=== PATIENT | female | born 1990 | race Caucasian/White ===

== ENCOUNTER 2023-02-09 18:52 | Outpatient (OUT) | payer OTHER, SELFPAY ==
[2023-02-15 13:19] LABS: Age Gdln ACOG Testing Note (.); HPV Aptima Negative (Negative); IGP, Aptima HPV, rfx 16/18,45 Note (.)
== END 2023-02-09 18:53 | disposition home or self-care (01) ==
PROVIDERS: PCP Obstetrics & Gynecology; Visit Provider Obstetrics & Gynecology
DX: Z12.4 Encounter for screening for malignant neoplasm of cervix (principal); Z11.51 Encounter for screening for human papillomavirus (HPV)
CPT/HCPCS: 87624; G0145

== ENCOUNTER 2023-07-19 19:44 | Outpatient (REF) | payer OTHER, SELFPAY ==
[2023-07-22 13:09] LABS: Age Gdln ACOG Testing Note (.); HPV Aptima Negative (Negative); IGP, Aptima HPV, rfx 16/18,45 Note (.)
== END 2023-07-19 19:45 | disposition home or self-care (01) ==
LOC: LAB 19:44
PROVIDERS: PCP Obstetrics & Gynecology; Visit Provider Obstetrics & Gynecology
DX: Z01.419 Encounter for gynecological examination (general) (routine) without abnormal findings (principal)
CPT/HCPCS: 87624; G0145

== ENCOUNTER 2024-01-02 14:24 | Outpatient (OUT) | payer OTHER, SELFPAY ==
--- OUTSIDE RECORDS SUMMARY | 2024-01-02 14:42 | XMS_ITS | CCD ---
Author Organization [facility] CliniSyme Care Team Providers Care Software Reliability Engineer Name Role Phone OTONIEL, DR LAWRENCE Admitting Unavailable OTONIEL, DR LAWRENCE Attending Unavailable GIOVANA, DR AVI Velarde Primary Care Unavail able WEST, DR RIGO Medina Consulting Unavailable OTONIEL, DR LAWRENCE Consulting Unavailable OTONIEL, DR LAWRENCE Admitting Unavailable OTONIEL, DR LAWRENCE Attending Unavailable GIOVANA, DR AVI Velarde Primary Care Unavail able OTONIEL, DR LAWRENCE Admitting Unavailable OTONIEL, DR LAWRENCE Attending Unavailable GIOVANA, DR AVI Velarde Primary Care Unavail able OTONIEL, DR LAWRENCE Consulting Unavailable OTONIEL, DR LAWRENCE Admitting Unavailable OTONIEL, DR LAWRENCE Attending Unavailable GIOVANA, DR AVI Velarde Primary Care Unavail able OTONIEL, DR LAWRENCE Consulting Unavailable OTONIEL, DR LAWRENCE Procedure Practitioner Unavailab SRIKANTH James Consulting Unavailable KEVANGOJOSE RAMON Galloway Consulting Unavailable MISSY PIERRE Consulting Unavailable OTONIEL, DR LAWRENCE Admitting Unavailable OTONIEL, DR LAWRENCE Attending Unavailable GIOVANA, DR AVI Velarde Primary Care Unavail able OTONIEL, DR LAWRENCE Consulting Unavailable OTONIEL, DR LAWRENCE Admitting Unavailable OTONIEL, DR LAWRENCE Attending Unavailable GIOVANA, DR AVI Velarde Primary Care Unavail able OTONIEL, DR LAWRENCE Admitting Unavailable OTONIEL, DR LAWRENCE Attending Unavailable GIOVANA, DR AVI Velarde Primary Care Unavail able OTONIEL, DR LAWRENCE Consulting Unavailable OTONIEL, DR LAWRENCE Admitting Unavailable OTONIEL, DR LAWRENCE Attending Unavailable GIOVANA, DR AVI Velarde Primary Care Unavail able OTONIEL, DR LAWRENCE Consulting Unavailable ZIEBER, DR TIFF Echevarria Consulting Unavailable OTONIEL, DR LAWRENCE Admitting Unavailable OTONIEL, DR LAWRENCE Attending Unavailable GIOVANA, DR AVI Velarde Primary Care Unavail able OTONIEL, DR LAWRENCE Consulting Unavailable ZIEBER, DR TIFF Echevarria Consulting Unavailable OTONIEL, DR LAWRENCE Admitting Unavailable OTONIEL, DR LAWRENCE Attending Unavailable GIOVANA, DR AVI Velarde Primary Care Unavail able OTONIEL, DR LAWRENCE Consulting Unavailable ZIEBER, DR TIFF Echevarria Consulting Unavailable OTONIEL, DR LAWRENCE Admitting Unavailable OTONIEL, DR LAWRENCE Attending Unavailable GIOVANA, DR AVI Velarde Primary Care Unavail able OTONILE, DR LAWRENCE Admitting Unavailable OTONIEL, DR LAWRENCE Attending Unavailable GIOVANA, DR AVI Velarde Primary Care Unavail able OTONIEL, DR LAWRENCE Consulting Unavailable OTONIEL, DR LAWRENCE Admitting Unavailable OTONIEL, DR LAWRENCE Attending Unavailable GIOVANA, DR AVI Velarde Primary Care Unavail able OTONIEL, DR LAWRENCE Consulting Unavailable GIOVANA, DR AVI Velarde Primary Care Unavail able SHAWN, SRIKANTH Admitting Unavailable SHAWN, NICOLÁS Attending Unavailable WEST, DR RIGO Medina Consulting Unavailable OTONIEL, DR LAWRENCE Consulting Unavailable SHAWN, SRIKANTH Consulting Unavailable OTONIEL, DR LAWRENCE Admitting Unavailable OTONIEL, DR LAWRENCE Attending Unavailable GIOVANA, DR AVI Velarde Primary Care Unavail able WEST, DR RIGO Medina Consulting Unavailable OTONIEL, DR LAWRENCE Consulting Unavailable OTONIEL, DR LAWRENCE Admitting Unavailable OTONIEL, DR LAWRENCE Attending Unavailable GIOVANA, DR AVI Velarde Primary Care Unavail able OTONIEL, DR LAWRENCE Consulting Unavailable OTONIEL, DR LAWRENCE Admitting Unavailable OTONIEL, DR LAWRENCE Attending Unavailable GIOVANA, DR AVI Velarde Primary Care Unavail able OTONIEL, DR LAWRENCE Consulting Unavailable OTONIEL, DR LAWRENCE Admitting Unavailable OTONIEL, DR LAWRENCE Attending Unavailable GIOVANA, DR AVI Velarde Primary Care Unavail able OTONIEL, DR LAWRENCE Admitting Unavailable OTONIEL, DR LAWRENCE Attending Unavailable GIOVANA, DR AVI Velarde Primary Care Unavail able OTONIEL, DR LAWRENCE Admitting Unavailable OTONIEL, DR LAWRENCE Attending Unavailable GIOVANA, DR AVI Velarde Primary Care Unavail able OTONIEL, DR LAWRENCE Consulting Unavailable GIOVANA, DR AVI Velarde Primary Care Unavail able TELLY, DR PENNINGTON Admitting Unavailable TELLY, DR PENNINGTON Attending Unavailable TELLY, DR PENNINGTON Consulting Unavailable [place], DR RIGO Medina Consulting Unavailable OTONIEL, DR LAWRENCE Consulting Unavailable OTONIEL, MELINDA Attending Unavailable OTONIEL, MELINDA Attending Unavailable Allergies Allergy Classification Reported Allergen(s) Allergy Type Date of Onset Reaction(s) Facility (2 sources) Acetaminophen / HYDROcodone Drug Allergy [facility] Repository Problems Active Problems Problem Classification Problem Date Documented Da te Episodic/Chronic Genitourinary congenital anomalies (1 source) Congenital malformation of uterus and cervix, unspecified; Translations: [CONGEN MALFORMATION UTERUS CERV UNS] Onset: 06-14-2022 Chronic Malposition; malpresentation (4 sources) Maternal care for breech presentation, not applicable or unspecified; Translations: [MATERNAL CARE BREECH PRES NA/UNS] Onset: 05-18-2022 Episodic Menstrual disorders (4 sources) Irregular menstruation, unspecified; Translations: [IRREGULAR MENSTRUATION UNSPECIFIED] Onset: 11-21-2021 Chronic Other complications of ; puerperium affecting management of mother (1 source) Onset (spontaneous) of labor after 37 completed weeks of gestation but before 39 completed weeks gestation, with delivery by (planned) section; Translations: [ONSET SPNT LBR 37WK<39WK DEL C SEC] Onset: 06-14-2022 Episodic Other complications of ; puerperium affecting management of mother (1 source) Maternal care for other (suspected) abnormality and damage, not applicable or unspecified; Translations: [MAT CARE OTH ABN DAMGE NA/UNS] Onset: 05-03-2022 Episodic Other complications of (5 sources) Maternal care for excessive growth, third trimester, not applicable or unspecified; Translations: [MAT CARE EXCSS FTL GRTH 3RD TRI UNS] Onset: 05-28-2022 Episodic Other complications of (1 source) Maternal care for unspecified congenital malformation of uterus, third trimester; Translations: [MAT CARE UNS CONGN MALF UT 3RD TRI] Onset: 06-14-2022 Episodic Other complications of (1 source) Cervical shortening, third trimester; Translations: [CERVICAL SHORTENING 3RD TRIMESTER] Onset: 05-12-2022 Episodic Other complications of (4 sources) Cervical shortening, unspecified trimester; Translations: [CERVICAL SHORTENING UNS TRIMESTER] Onset: 04-29-2022 Episodic Other and delivery including normal (20 sources) Encounter for care and examination of lactating mother; Translations: [Encounter for routine follow-up] Onset: 10-12-2021 Episodic Other screening for suspected conditions (not mental disorders or infectious disease) (1 source) Abnormal findings on diagnostic imaging of other specified body structures; Translations: [ABNORML FIND DX IMG OTH BODY STRUC] Onset: 05-12-2022 Chronic Other screening for suspected conditions (not mental disorders or infectious disease) (13 sources) Encounter for screening for diabetes mellitus; Translations: [Encounter for screening for malignant neoplasm of cervix] Onset: 11-25-2021 Episodic Residual codes; unclassified (1 source) 37 weeks gestation of ; Translations: [37 WEEKS GESTATION OF ] Onset: 06-14-2022 Episodic Residual codes; unclassified (1 source) 36 weeks gestation of ; Translations: [36 WEEKS GESTATION OF ] Onset: 05-31-2022 Episodic Residual codes; unclassified (1 source) 35 weeks gestation of ; Translations: [35 WEEKS GESTATION OF ] Onset: 05-23-2022 Episodic Residual codes; unclassified (1 source) 34 weeks gestation of ; Translations: [34 WEEKS GESTATION OF ] Onset: 05-18-2022 Episodic Residual codes; unclassified (1 source) Weeks of gestation of not specified; Translations: [WEEKS GESTATION NOT SPEC] Onset: 05-03-2022 Episodic Residual codes; unclassified (1 source) 38 weeks gestation of ; Translations: [38 WEEKS GESTATION OF ] Onset: 04-30-2022 Episodic Unclassified (1 source) CONTACT W/AND (SUSP) EXPOS COVID-19; Translations: [CONTACT W/AND (SUSP) EXPOS COVID-19] Onset: 06-14-2022 Past or Other Problems Problem Classification Problem Date Documented Date Episodic/Chronic Hemorrhage during ; abruptio placenta; placenta previa (4 sources) Hemorrhage in early , unspecified; Translations: [HEMORRHAGE EARLY UNS] Onset: 11-02-2021 Episodic Immunizations and screening for infectious disease (3 sources) Encounter for screening for human papillomavirus (HPV); Translations: [Encounter for screening for infections with a predominantly sexual mode of transmission] Onset: 11-25-2021 Episodic Other female genital disorders (1 source) Other specified noninflammatory disorders of vagina; Translations: [OTH SPEC NONINFLAMMATORY D/O VAGINA] Onset: 02-03-2022 Episodic Residual codes; unclassified (1 source) 20 weeks gestation of ; Translations: [20 WEEKS GESTATION OF ] Onset: 02-03-2022 Episodic Residual codes; unclassified (1 source) 15 weeks gestation of ; Translations: [15 WEEKS GESTATION OF ] Onset: 01-21-2022 Episodic Residual codes; unclassified (4 sources) Personal history of other complications of , childbirth and the puerperium; Translations: [PERS HX OTH COMP PG CHILDBIRTH AND PP] Onset: 07-22-2021 Episodic Results Test Name Value Interpretation Reference Range Facility CBC AUTO DIFFon 06-05-2022 BASO # 0.0 103/ul Normal 0.0-0.1 [facility] Comment on above: Performed By: #### C BC #### [facility] [address] [place] [address] Dr. Sandi Michelle Basophils/100 WBC (Bld) 0.2 % Normal 0.2-2.0 [facility] Comment on above: Performed By: #### C BC #### [facility] [address] [place] [address] Dr. Sandi Michelle EO # 0.0 103/ul Normal 0.0-0.7 [facility] Comment on above: Performed By: #### C BC #### [facility] [address] [place] [address] Dr. Sandi Michelle Eosinophils/100 WBC (Bld) 0.2 % Critically low 0.9-7.0 [facility] Comment on above: Performed By: #### C BC #### [facility] [address] [place] [address] Dr. Sandi Michelle Erythrocyte distribution width (RBC) [Ratio] 14.3 % Normal 11.0-15.0 [facility] Comment on above: Performed By: #### C BC #### [facility] [address] [place] [address] Dr. Sandi Michelle Hematocrit (Bld) [Volume fraction] 27.3 % Critically low 36.0-48.0 [facility] Comment on above: Performed By: #### C BC #### [facility] [address] [place] [address] Dr. Sandi Michelle Hemoglobin (Bld) [Mass/Vol] 9.3 g/dL Critically low 12.0-16.0 [facility] Comment on above: Result Comment: DELI VERY Performed By: #### C BC #### [facility] [address] [place] [address] Dr. Sandi Michelle IG # 0.14 10e3/ul Critically high 0.00-0.03 [facility] Comment on above: Performed By: #### C BC #### [facility] [address] [place] [address] Dr. Sandi Michelle IG % 1.1 % Critically high 0.0-0.5 [facility] Comment on above: Performed By: #### C BC #### [facility] [address] [place] [address] Dr. Sandi Michelle LYMPH # 1.6 103/ul Normal 1.2-3.8 [facility] Comment on above: Performed By: #### C BC #### [facility] [address] [place] [address] Dr. Sandi Michelle Lymphocytes/100 WBC (Bld) 12.1 % Critically low 20.5-60.0 [facility] Comment on above: Performed By: #### C BC #### [facility] [address] [place] [address] Dr. Sandi Michelle MANUAL DIFF REQ NO Normal [facility] Comment on above: Performed By: #### C BC #### [facility] [address] [place] [address] Dr. Sandi Michelle MCH (RBC) [Entitic mass] 31.8 pg Normal 26.7-34.0 [facility] Comment on above: Performed By: #### C BC #### [facility] [address] [place] [address] Dr. Sandi Michelle MCHC (RBC) [Mass/Vol] 34.1 g/dL Normal 29.9-35.2 [facility] Comment on above: Performed By: #### C BC #### [facility] [address] [place] [address] Dr. Sandi Michelle MCV (RBC) [Entitic vol] 93.5 fL Normal 81.0-99.0 [facility] Comment on above: Performed By: #### C BC #### [facility] [address] [address] [address] Sandi Michelle MONO # 0.9 103/ul Critically high 0.3-0.8 [facility] Comment on above: Performed By: #### C BC #### [facility] [address] [place] [address] Dr. Sandi Michelle Monocytes/100 WBC (Bld) 6.8 % Normal 1.7-12.0 [facility] Comment on above: Performed By: #### C BC #### [facility] [address] [place] [address] Dr. Sandi Michelle NEUT # 10.3 103/ul Critically high 1.4-6.5 [facility] Comment on above: Performed By: #### C BC #### [facility] [address] [place] [address] Dr. Sandi Michelle Neutrophils/100 WBC (Bld) 79.6 % Critically high 43.0-75.0 [facility] Comment on above: Performed By: #### C BC #### [facility] [address] [place] [address] Dr. Sandi Michelle Platelet mean volume (Bld) [Entitic vol] 9.8 fL Normal 9.5-13.5 [facility] Comment on above: Performed By: #### C BC #### [facility] [address] [place] [address] Dr. Sandi Michelle PLT 138 103/ul Critically low 150-450 [facility] Comment on above: Performed By: #### C BC #### [facility] [address] [place] [address] Dr. Sandi Michelle RBC 2.92 106/ul Critically low 4.20-5.40 [facility] Comment on above: Performed By: #### C BC #### [facility] [address] [place] [address] Dr. Sandi Michelle WBC 12.9 103/ul Critically high 4.0-11.0 [facility] Comment on above: Performed By: #### C BC #### [facility] [address] [place] [address] Dr. Sandi Michelle CBC AUTO DIFFon 06-04-2022 BASO # 0.0 103/ul Normal 0.0-0.1 [facility] Comment on above: Performed By: #### C BC #### [facility] [address] [place] [address] Dr. Sandi Michelle Basophils/100 WBC (Bld) 0.3 % Normal 0.2-2.0 [facility] Comment on above: Performed By: #### C BC #### [facility] [address] [place] [address] Dr. Sandi Michelle EO # 0.0 103/ul Normal 0.0-0.7 [facility] Comment on above: Performed By: #### C BC #### [facility] [address] [place] [address] Dr. Sandi Michelle Eosinophils/100 WBC (Bld) 0.1 % Critically low 0.9-7.0 [facility] Comment on above: Performed By: #### C BC #### [facility] [address] [place] [address] Dr. Sandi Michelle Erythrocyte distribution width (RBC) [Ratio] 14.4 % Normal 11.0-15.0 [facility] Comment on above: Performed By: #### C BC #### [facility] [address] [place] [address] Dr. Sandi Michelle Hematocrit (Bld) [Volume fraction] 37.2 % Normal 36.0-48.0 [facility] Comment on above: Performed By: #### C BC #### [facility] [address] [place] [address] Dr. Sandi Michelle Hemoglobin (Bld) [Mass/Vol] 12.9 g/dL Normal 12.0-16.0 [facility] Comment on above: Performed By: #### C BC #### [facility] [address] [place] [address] Dr. Sandi Michelle IG # 0.23 10e3/ul Critically high 0.00-0.03 [facility] Comment on above: Performed By: #### C BC #### [facility] [address] [place] [address] Dr. Sandi Michelle IG % 1.6 % Critically high 0.0-0.5 [facility] Comment on above: Performed By: #### C BC #### [facility] [address] [place] [address] Dr. Sandi Michelle LYMPH # 2.3 103/ul Normal 1.2-3.8 [facility] Comment on above: Performed By: #### C BC #### [facility] [address] [place] [address] Dr. Sandi Michelle Lymphocytes/100 WBC (Bld) 16.0 % Critically low 20.5-60.0 [facility] Comment on above: Performed By: #### C BC #### [facility] [address] [place] [address] Dr. Sandi Michelle MANUAL DIFF REQ NO Normal [facility] Comment on above: Performed By: #### C BC #### [facility] [address] [place] [address] Dr. Sandi Michelle MCH (RBC) [Entitic mass] 32.3 pg Normal 26.7-34.0 [facility] Comment on above: Performed By: #### C BC #### [facility] [address] [place] [address] Dr. Sandi Michelle MCHC (RBC) [Mass/Vol] 34.7 g/dL Normal 29.9-35.2 [facility] Comment on above: Performed By: #### C BC #### [facility] [address] [place] [address] Dr. Sandi Michelle MCV (RBC) [Entitic vol] 93.0 fL Normal 81.0-99.0 [facility] Comment on above: Performed By: #### C BC #### [facility] [address] [place] [address] Dr. Sandi Michelle MONO # 0.8 103/ul Normal 0.3-0.8 [facility] Comment on above: Performed By: #### C BC #### [facility] [address] [place] [address] Dr. Sandi Michelle Monocytes/100 WBC (Bld) 5.8 % Normal 1.7-12.0 [facility] Comment on above: Performed By: #### C BC #### [facility] [address] [place] [address] Dr. Sandi Michelle NEUT # 10.7 103/ul Critically high 1.4-6.5 [facility] Comment on above: Performed By: #### C BC #### [facility] [address] [place] [address] Dr. Sandi Michelle Neutrophils/100 WBC (Bld) 76.2 % Critically high 43.0-75.0 [facility] Comment on above: Performed By: #### C BC #### [facility] [address] [place] [address] Dr. Sandi Michelle Platelet mean volume (Bld) [Entitic vol] 10.9 fL Normal 9.5-13.5 [facility] Comment on above: Performed By: #### C BC #### [facility] [address] [place] [address] Dr. Sandi Michelle PLT 194 103/ul Normal 150-450 [facility] Comment on above: Performed By: #### C BC #### [facility] [address] [place], [place] [id number] Dr. Sandi Michelle RBC 4.00 106/ul Critically low 4.20-5.40 [facility] Comment on above: Performed By: #### C BC #### [facility] [address] [place] [address] Dr. Sandi Michelle WBC 14.0 103/ul Critically high 4.0-11.0 [facility] Comment on above: Performed By: #### C BC #### [facility] [address] [place], [place] [address] Dr. Sandi Michelle Covid-19 PCR ([facility])on 05-25 SARS-CoV-2 (COVID-19) RNA ALETHEA+probe Ql (Unsp spec) Not detected Normal NOT DETECTED [facility] Comment on above: Result Comment: When diagnostic testing is negative, the possibility of a false negative should be considered in the context of a patient's recent exposures and the presence of clinical signs and symptoms consistent with SARS-CoV-2. This test is not yet approved or cleared by the [place] FDA. When there are no FDA-approved or cleared tests available, and other criteria are met, FDA can make tests available under an emergency access mechanism called an Emergency Use Authorization (EUA). The EUA for this test is supported by the [place] of Health and Human Service's declaration that circumstances exist to justify the emergency use of in vitro diagnostics for the detection and/or diagnosis of the virus that causes COVID-19. This EUA will remain in effect for the duration of the COVID-19 declaration justifying emergency of IVDs, unless it is terminated or revoked by the FDA (after which the test may no longer be used). Performed By: #### C VDTBH ####[facility] [address] [place], [place] [address]WoDen Michelle DRUG SCREEN RAPID (URINE)on 06-04-2022 AMP Negative Normal NEGATIVE [facility] Comment on above: Performed By: #### D RUGRPD ####[facility] [address] [id number] Michelle BAR Negative Normal NEGATIVE [facility] Comment on above: Performed By: #### D RUGRPD ####[facility] [address] [id number] Michelle BUP Negative Normal NEGATIVE [facility] Comment on above: Performed By: #### D RUGRPD ####[facility] [address] [id number]. Sandi Michelle BZO Negative Normal NEGATIVE [facility] Comment on above: Performed By: #### D RUGRPD ####[facility] [address] [address]Dr. Sandi Michelle NINO Negative Normal NEGATIVE [facility] Comment on above: Performed By: #### D RUGRPD ####[facility] [address] [place], [place] [id number]. Sandi Michelle CUT-OFFS SEE BELOW Normal [facility] Comment on above: Result Comment: AMP (Amphetamine): 500ng/mL, BAR (Barbituates): 200 ng/mL, BZO (Benzodiazepines): 150 ng/mL, BUP (Buprenorphine): 10 ng/mL, NINO (Cocaine): 150 ng/mL, mAMP (Methamphetamine): 500 ng/mL, MTD (Methadone): 200 ng/mL, OPI (Opiates): 100 ng/mL, OXY (Oxycodone): 100 ng/mL, PCP (Phencyclidine): 25 ng/mL, PPX (Propoxyphene): 300 ng/mL, THC (Cannabinoids): 50 ng/mL, TCA (Trycyclic Antidepressants): 300 ng/mL Performed By: #### D RUGRPD ####[facility] [address] [place], [place] [address]Dr. Sandi Michelle DRUG CUT HEADER DRUG CLASS TEST SYSTEM CUT-OFF CONCENTRATIONS ARE FOLLOWS: Normal [facility] Comment on above: Performed By: #### D RUGRPD ####[facility] [address] [place], [place] [address]Dr. Sandi Michelle mAMP Negative Normal NEGATIVE [facility] Comment on above: Performed By: #### D RUGRPD ####[facility] [address] [place], [place] [address]Dr. Sandi Michelle MTD Negative Normal NEGATIVE [facility] Comment on above: Performed By: #### D RUGRPD ####[facility] [address] [place], [place] [address]Dr. Sandi Michelle OPI Negative Normal NEGATIVE [facility] Comment on above: Performed By: #### D RUGRPD ####[facility] [address] [place], [place] [address]Dr. Sandi Michelle OXY Negative Normal NEGATIVE [facility] Comment on above: Performed By: #### D RUGRPD ####[facility] [address] [address]Dr. Sandi Michelle PCP Negative Normal NEGATIVE [facility] Comment on above: Performed By: #### D RUGRPD ####[facility] [address] [address]Dr. Sandi Michelle PPX Negative Normal NEGATIVE [facility] Comment on above: Performed By: #### D RUGRPD ####[facility] [address] [address]Dr. Sandi Michelle TCA Negative Normal NEGATIVE [facility] Comment on above: Performed By: #### D RUGRPD ####[facility] [address] [address]Dr. Sandi Michelle THC Negative Normal NEGATIVE [facility] Comment on above: Performed By: #### D RUGRPD ####[facility] [address] [address]Dr. Sandi Michelle TYPE AND SCREENon 06-04-2022 TYPE AND SCREEN Negative Normal [facility] Comment on above: Performed By: #### T NS ####[facility] [address] [place], [place] [address]Dr. Sandi Michelle US PREG BIOPHY W NON STRESSo n 05-30-2022 US PREG BIOPHY W NON STRESS EXAMINATION: US PREG BIOPHY W NON STRESS HISTORY: Excessive growth affecting management of mother COMPARISON: No relevant comparison available. TECHNIQUE: Ultrasound biophysical profile was performed in the radiology department. FINDINGS: BREATHING MOVEMENTS: 2.0 GROSS BODY MOVEMENTS: 2.0 TONE: 2.0 QUALITATIVE AMNIOTIC FLUID VOLUME: 2.0 PRESENTATION: BREECH HEART RATE: 125.4 bpm H.B./min AMNIOTIC FLUID VOLUME: 16.1 cm cm GESTATIONAL AGE: 36 weeks 5 days CONCLUSION: Total biophysical profile score: 8.0 Electronically authenticated by: RIGO FISCHER Date: 2022-05-30 08:30 Normal [facility] GROUP B STREP CULTUREon S. agalactiae Ag (Unsp spec) Culture Observations: NEGATIVE FOR GROUP B STREPTOCOCCUS. Normal [facility] Comment on above: Performed By: #### G BSCX ####[facility] [address] [place], [place] [address]GwDen Michelle US PREG BIOPHY W NON STRESSo n 05-23-2022 US PREG BIOPHY W NON STRESS EXAMINATION: US PREG BIOPHY W NON STRESS HISTORY: Excessive growth affecting management of mother COMPARISON: No relevant comparison available. TECHNIQUE: Ultrasound biophysical profile was performed in the radiology department. FINDINGS: BREATHING MOVEMENTS: 2.0 GROSS BODY MOVEMENTS: 2.0 TONE: 2.0 QUALITATIVE AMNIOTIC FLUID VOLUME: 2.0 PRESENTATION: BREECH HEART RATE: 131.1 bpm H.B./min AMNIOTIC FLUID VOLUME: 15.0 cm cm GESTATIONAL AGE: 35 weeks 5 days CONCLUSION: Total biophysical profile score: 8.0 Electronically authenticated by: RIGO FISCHER Date: 2022-05-23 09:41 Normal [facility] US PREG BIOPHY W NON STRESSo n 05-16-2022 US PREG BIOPHY W NON STRESS EXAMINATION: US PREG BIOPHY W NON STRESS HISTORY: Excessive growth affecting management of mother COMPARISON: No relevant comparison available. TECHNIQUE: Ultrasound biophysical profile was performed in the radiology department. non-reactive stress testing was performed by nursing staff in the birthing center. FINDINGS: BREATHING MOVEMENTS: 2.0 GROSS BODY MOVEMENTS: 2.0 TONE: 2.0 QUALITATIVE AMNIOTIC FLUID VOLUME: 2.0 PRESENTATION: BREECH HEART RATE: 138.5 bpm H.B./min AMNIOTIC FLUID VOLUME: 15.1 cm cm GESTATIONAL AGE: 34 weeks 5 days CONCLUSION: Total biophysical profile score: 8.0 Electronically authenticated by: RIGO FISCHER Date: 2022-05-16 16:10 Normal [facility] US PREG GROWTHon 05-11-2022 US PREG GROWTH EXAMINATION: US PREG GROWTH, US PREG CERVICAL LENGTH HISTORY: Excessive growth affecting management of mother COMPARISON: Ultrasound growth 04/27/2022 FINDINGS: Heart Rate: 137.8 bpm (accession [id number]), 167.3 bpm (accession [id number]) Number: 1.0 Position: BREECH Amniotic Fluid Volume: 13.0 cm (between fifth and 95th percentile) Maximum Vertical Pocket: 6.5 cm Cervix: 2.1 cm and closed (2.0 cm during Valsalva) BIOMETRY: BPD: 9.0 cm cm; 36 weeks 3 days; 95% HC: 32.8 cmcm; 37 weeks 1 days; 87% AC: 34.3 cm cm; 38 weeks 2 days; >97% FL: 6.5 cm cm; 33 weeks 3 days; 23% EFW: 3032.7 grams; >97% FL/AC: 18.9 FL/BPD: 72.2 HC/AC: 1.0 GESTATIONAL AGE: Age by EDC: 34 weeks 1 days JOSE by EDC: Age by US: JOSE by US: [id number] IMPRESSION: 1. Single live intrauterine . 2. Estimated weight is greater than 97th percentile. 3. Synechia band within lower uterine segment. 4. Short, closed cervix 2.1 cm in length. No significant change with Valsalva. Electronically authenticated by: TIFF URIBE Date: 2022-05-11 19:19 Normal [facility] US PREG GROWTHon 04-27-2022 US PREG GROWTH EXAMINATION: US PREG GROWTH HISTORY: Large for gestation age fetus COMPARISON: Ultrasound anatomy 02/01/2022 FINDINGS: Heart Rate: 163.0 bpm Number: 1.0 Position: Oblique/BREECH Amniotic Fluid Volume: 19.4 cm Maximum Vertical Pocket: 6.9 cm Cervix: 2.0 cm; closed. BIOMETRY: BPD: 8.6 cm cm; 34 weeks 5 days HC: 31.0 cmcm; 34 weeks 4 days AC: 30.3 cm cm; 34 weeks 1 days FL: 6.7 cm cm; 34 weeks 4 days EFW: 2417.0 grams; 94% FL/AC: 22.2 FL/BPD: 77.9 HC/AC: 1.0 GESTATIONAL AGE: Age by EDC: 32 weeks 2 days JOSE by EDC: 06/20/2022 Age by US: 34 weeks, 4 days JOSE by US: 06/04/2022 IMPRESSION: 1. Single live intrauterine with growth detailed above. 2. Short, closed cervix, 2.0 cm in length. Electronically authenticated by: TIFF URIBE Date: 2022-04-27 20:51 Normal [facility] GLUCOSE - 1HRon 03-15-2022 Glucose [Mass/Vol] 137 mg/dL Critically high 74-106 T [facility] Comment on above: Performed By: #### C BC #### [facility] [address] [place] [address] Dr. Sandi Michelle HEMOGRAM AND PLATELon 2021 Hematocrit (Bld) [Volume fraction] 34.9 % Critically low 36.0-48.0 [facility] Comment on above: Performed By: #### C BC #### [facility] [address] [place] [address] Dr. Sandi Michelle Hemoglobin (Bld) [Mass/Vol] 11.5 g/dL Critically low 12.0-16.0 [facility] Comment on above: Performed By: #### C BC #### [facility] [address] [place] [address] Dr. Sandi Michelle MCH (RBC) [Entitic mass] 31.8 pg Normal 26.7-34.0 [facility] Comment on above: Performed By: #### C BC #### [facility] [address] [place] [address] Dr. Sandi Michelle MCHC (RBC) [Mass/Vol] 33.0 g/dL Normal 29.9-35.2 [facility] Comment on above: Performed By: #### C BC #### [facility] [address] [place] [address] Dr. Sandi Michelle MCV (RBC) [Entitic vol] 96.4 fL Normal 81.0-99.0 [facility] Comment on above: Performed By: #### C BC #### [facility] [address] [place] [address] Dr. Sandi Michelle PLT 225 103/ul Normal 150-450 [facility] Comment on above: Performed By: #### C BC #### [facility] [address] [place] [address] Dr. Sandi Michelle RBC 3.62 106/ul Critically low 4.20-5.40 The [facility] Comment on above: Performed By: #### C BC #### [facility] [address] [address] [address] Sandi Michelle WBC 12.9 103/ul Critically high 4.0-11.0 [facility] Comment on above: Performed By: #### C BC #### [facility] [id number] Sandi Michelle CHLAMYDIA/GONOCOCCUS ALETHEA (SW AB/URINE/PAPon 02-04-2022 Chlamydia trachomatis, ALETHEA Negative Normal Negative [facility] Comment on above: Performed By: #### C T/NGNA #### [facility] [id number] Sandi Michelle Neisseria gonorrhoeae, ALETHEA Negative Normal Negative [facility] Comment on above: Performed By: #### C T/NGNA #### [facility] [address] [address] [address] Sandi Michelle PAP ACOG PANEL 2: 30 to 65on 02-04-2022 . . Normal [facility] Comment on above: Result Comment: Perf ormed at: WB Performed By: #### 4 [id number] ####[facility] [address] [place] [address]Dr. Sandi Michelle Age Gdln ACOG Testing 30-65 Normal [facility] Comment on above: Performed By: #### 4 [id number] ####[facility] [address] [place] [address]Dr. Sandi Michelle DIAGNOSIS: Comment Normal [facility] Comment on above: Result Comment: NEGA TIVE FOR INTRAEPITHELIAL LESION OR MALIGNANCY. Performed at: WB Performed By: #### 4 [id number] ####[facility] [address] [place] [address]Dr. Sandi Michelle HPV Aptima Negative Normal Negative [facility] Comment on above: Result Comment: This nucleic acid amplification test detects fourteen high-risk HPV types (16,18,31,33,35,39,45,51,52,56,58,59,66,68) without differentiation. Performed at: =G Performed By: #### 4 [id number] ####[facility] [address] [place] [address]Dr. Sandi Michelle Methodology: Comment Normal [facility] Comment on above: Result Comment: This liquid based ThinPrep(R) pap test was screened with the use of an image guided system. Performed at: WB Performed By: #### 4 [id number] ####[facility] [address] [place], [place] [address]DrDen Michelle Note: Comment Normal [facility] Comment on above: Result Comment: The Pap smear is a screening test designed to aid in the detection of premalignant and malignant conditions of the uterine cervix. It is not a diagnostic procedure and should not be used as the sole means of detecting cervical cancer. Both false-positive and false-negative reports do occur. . Performed at: WB Performed By: #### 4 [id number] ####[facility] [address] [place], [place] [address]Dr. Sandi Michelle Performed by: Comment Normal [facility] Comment on above: Result Comment: Vikas Mcclellan, Bean Snipper (ASCP) Performed at: WB Performed By: #### 4 [id number] ####[facility] [address] [place], [place] [address]Dr. Sandi Michelle Specimen adequacy: Comment Normal [facility] Comment on above: Result Comment: Sati sfactory for evaluation. No endocervical component is identified. Performed at: WB Performed By: #### 4 [id number] ####[facility] [address] [place], [place] [address]Dr. Sandi Michelle VAGINITIS/VAGINOSIS DNA PROB Nicholas 02-03-2022 Karol species Negative Normal Negative [facility] Comment on above: Performed By: #### V AGINT ####[facility] [address] [place] [address]Dr. Sandi Michelle Gardnerella vaginalis Negative Normal Negative [facility] Comment on above: Performed By: #### V AGINT ####[facility] [address] [place] [address]Dr. Sandi Michelle Trichomonas vaginalis Negative Normal Negative [facility] Comment on above: Performed By: #### V AGINT ####[facility] [address] [place], [place] [address]JzDen Michelle US PREG ANATOMY SINGLEon US PREG ANATOMY SINGLE EXAMINATION: US PREG ANATOMY SINGLE HISTORY: anatomy study COMPARISON: 11/02/2021 TECHNIQUE: Transabdominal sonographic examination was performed for obstetrical and evaluation. FINDINGS: Number: 1 Heart Rate: 142.0 bpm H.B. /min Amniotic Fluid Volume: Subjectively normal position: Breech presentation, longitudinal lie Placental Location: Anterior, grade 0. Placental edge is 7.8 cm from the internal os Cervix Length: 3.8 cm, closed Normally visualized anatomy: Cerebellum, choroid plexus, cisterna magna, lateral cerebral ventricles, orbits, midline falx, hard palate, four-chamber heart, RVOT, LVOT, stomach, kidneys, bladder, umbilical cord insertion into the abdomen, three-vessel cord, cervical spine, thoracic spine, lumbar spine, sacral spine, right upper extremity, left upper extremity, right lower extremity, left lower extremity Suboptimally visualized anatomy: None BIOMETRY: BPD: 5.0 cm 21 weeks 1 days , 86% HC: 18.5 cm 20 weeks 6 days, 73% AC: 16.1 cm 21 weeks 2 days, 78% FL: 3.5 cm 20 weeks 6 days, 69% EFW:396.0 grams; 14 ounces, 90% FL/AC: 21.5 FL/BPD: 69.1 HC/AC: 1.2 GESTATIONAL AGE: Age by EDC: 20 weeks 1 days JOSE by EDC: 06/20/2022 Age by current US: 21 weeks 0 days JOSE by current US: 06/14/2022 IMPRESSION: Normal anatomy scan *Reference: [employer] Practice Guideline for the performance of Obstetric Ultrasound Examinations, April 24, 2007. Electronically authenticated by: RIGO FISCHER Date: 2022-02-01 19:32 Normal [facility] AFP MATERNAL FOR SPINA BIFID Aon 01-21-2022 AFP MoM 1.24 Normal [facility] Comment on above: Performed By: #### A FPMAT ####[facility] [address] [place], [place] [address]SnDen Michelle AFP Value 55.2 ng/mL Normal [facility] Comment on above: Performed By: #### A FPMAT ####[facility] [address] [place] [id number]. Sandi Michelle AFP, Serum for Spina Bifida Report Normal [facility] Comment on above: Performed By: #### A FPMAT ####[facility] [address] [place] [id number]. Sandi Michelle Comment Comment Normal [facility] Comment on above: Result Comment: Iesha Sullivan, Ph.D., [facility] Director . References: Available Upon Request. . Multiples Of Median Cutoffs For AFP Elevations Bhandari 2.5 Black 2.8 IDD 2.0 Twins 4.5 Abbreviation Definitions IDD - Insulin Dep Diabetes OSBR - Open Spina Bifida Risk . For further inquiries contact [email or web address] [facility] at [phone]. . This test was developed and its performance characteristics determined by [employer]. It has not been cleared or approved by the Food and Drug Administration. Performed By: #### A FPMAT ####[facility] [address] [place] [address]Dr. Sandi Michelle Gest Age Collection Date 18.1 weeks Normal [facility] Comment on above: Performed By: #### A FPMAT ####[facility] [address] [place] [address]Dr. Sandi Michelle Gestat, Age Based on JOSE Normal [facility] Comment on above: Result Comment: 05/26 Recalculations are not recommended when gestational dating by LMP and ultrasound are within 10 days. Performed By: #### A FPMAT ####[facility] [address] [place] [address]Dr. Sandi Michelle Insulin Dep Diabetes Comment Normal [facility] Comment on above: Result Comment: Not provided. . Performed By: #### A FPMAT ####[facility] [address] [place] [address]Dr. Sandi Michelle Interpretation Comment Normal The [facility] Comment on above: Result Comment: Inte rpretation: Screen Negative . This result is screen negative for OSB. The AFP MoM calculated is based on the gestational age provided. MS-AFP can identify up to 80% of open neural tube defects. Closed neural tube defects and some open defects may not be detected by this test. This test does not screen for Down Syndrome or Trisomy 18. If screening for Down Syndrome or Trisomy 18 is desired, contact [employer] to discuss available options. The [employer] recommends amniocentesis be offered to women age 35 and older. Performed By: #### A FPMAT ####[facility] [address] [place] [id number]. Sandi Michelle [age] Normal [facility] Comment on above: Performed By: #### A FPMAT ####[facility] [address] [place] [address]Dr. Sandi Michelle Multiple Gestation No Normal [facility] Comment on above: Performed By: #### A FPMAT ####[facility] [address] [place], [place] [id number]. Sandi Michelle OSBR Risk 1 [place] 5748 Normal [facility] Comment on above: Performed By: #### A FPMAT ####[facility] [address] [place] [id number]. Sandi Michelle PDF . Normal [facility] Comment on above: Performed By: #### A FPMAT ####[facility] [address] [place] [id number]. Sandi Michelle Race Normal [facility] Comment on above: Performed By: #### A FPMAT ####[facility] [address] [place], [place] [address]Dr. Sandi Michelle Test Results: Negative Normal [facility] Comment on above: Performed By: #### A FPMAT ####[facility] [address] [place], [place] [address]Dr. Sandi Michelle HEP B SURFACE ANTIGEN SCREEN on 11-22-2021 HBsAg Screen Negative Normal Negative [facility] Comment on above: Performed By: #### H BSANS ####[facility] [address] [place], [place] [address]Dr. Sandi Michelle HEPATITIS C VIRUS AB W/ REFL EX QUANTon 11-22-2021 HCV AB 0.1 s/co ratio Normal 0.0-0.9 The [facility] Comment on above: Performed By: #### C BC #### [facility] [address] [address] [address] Sandi Michelle Interpretation: Comment Normal [facility] Comment on above: Result Comment: Nega tive Not infected with HCV, unless recent infection is suspected or other evidence exists to indicate HCV infection. Performed By: #### C BC #### [facility] [address] [address] [address] Sandi Michelle HIV 1 AND 2 WITH REFLEXon HIV Screen 4th Generation wRfx Non-Reactive Normal Non Reactive [facility] Comment on above: Result Comment: HIV Negative HIV-1/HIV-2 antibodies and HIV-1 p24 antigen were NOT detected. There is no laboratory evidence of HIV infection. Performed By: #### H IV12 ####[facility] [address] [address]Dr. Sandi Michelle RPR QUANTon 11-22-2021 Rapid Plasma Reagin, Quant Non-Reactive Normal NonRea<1:1 [facility] Comment on above: Result Comment: Mary kyle Note: This test does not meet current guidelines for screening and diagnosis of syphilis. This test is intended for following treatment response in patients being treated for syphilis infection. To screen for syphilis infection, a reflex cascade that includes both RPR and a treponema-specific assay should be utilized, such as Treponema pallidum (Syphilis) Screening [place] (941492) or Rapid Plasma Reagin (RPR) Test With Reflex to Quantitative RPR and Confirmatory Treponema pallidum Antibodies (137798). Performed By: #### C BC #### [facility] [address] [address] [address] Sandi Michelle RUBELLA AB IGGon 11-22-2021 Rubella Antibodies, IgG 9.33 index Normal Immune >0.99 [facility] Comment on above: Result Comment: Non- immune <0.90 Equivocal 0.90 - 0.99 Immune >0.99 Performed By: #### C BC #### [facility] [address] [place] [address] Dr. Sandi Michelle CBC AUTO DIFFon 11-21-2021 BASO # 0.0 103/ul Normal 0.0-0.1 [facility] Comment on above: Performed By: #### C BC #### [facility] [address] [place] [address] Dr. Sandi Michelle Basophils/100 WBC (Bld) 0.4 % Normal 0.2-2.0 [facility] Comment on above: Performed By: #### C BC #### [facility] [address] [place] [address] Dr. Sandi Michelle EO # 0.1 103/ul Normal 0.0-0.7 [facility] Comment on above: Performed By: #### C BC #### [facility] [address] [place] [address] Dr. Sandi Michelle Eosinophils/100 WBC (Bld) 0.6 % Critically low 0.9-7.0 [facility] Comment on above: Performed By: #### C BC #### [facility] [address] [place] [address] Dr. Sandi Michelle Erythrocyte distribution width (RBC) [Ratio] 11.9 % Normal 11.0-15.0 [facility] Comment on above: Performed By: #### C BC #### [facility] [address] [place] [address] Dr. Sandi Michelle Hematocrit (Bld) [Volume fraction] 37.1 % Normal 36.0-48.0 [facility] Comment on above: Performed By: #### C BC #### [facility] [address] [place] [address] Dr. Sandi Mcihelle Hemoglobin (Bld) [Mass/Vol] 12.2 g/dL Normal 12.0-16.0 [facility] Comment on above: Performed By: #### C BC #### [facility] [address] [place] [address] Dr. Sandi Michelle IG # 0.03 10e3/ul Normal 0.00-0.03 [facility] Comment on above: Performed By: #### C BC #### [facility] [address] [place] [address] Dr. Sandi Michelle IG % 0.4 % Normal 0.0-0.5 [facility] Comment on above: Performed By: #### C BC #### [facility] [address] [place] [address] Dr. Sandi Michelle LYMPH # 1.8 103/ul Normal 1.2-3.8 [facility] Comment on above: Performed By: #### C BC #### [facility] [address] [place] [address] Dr. Sandi Michelle Lymphocytes/100 WBC (Bld) 23.4 % Normal 20.5-60.0 [facility] Comment on above: Performed By: #### C BC #### [facility] [address] [place] [address] Dr. Sandi Michelle MANUAL DIFF REQ NO Normal [facility] Comment on above: Performed By: #### C BC #### [facility] [address] [place] [address] Dr. Sandi Michelle MCH (RBC) [Entitic mass] 31.4 pg Normal 26.7-34.0 [facility] Comment on above: Performed By: #### C BC #### [facility] [address] [place] [address] Dr. Sandi Michelle MCHC (RBC) [Mass/Vol] 32.9 g/dL Normal 29.9-35.2 [facility] Comment on above: Performed By: #### C BC #### [facility] [address] [place] [address] Dr. Sandi Michelle MCV (RBC) [Entitic vol] 95.6 fL Normal 81.0-99.0 [facility] Comment on above: Performed By: #### C BC #### [facility] [address] [place] [address] Dr. Sandi Michelle MONO # 0.5 103/ul Normal 0.3-0.8 [facility] Comment on above: Performed By: #### C BC #### [facility] [address] [place] [address] Dr. Sandi Michelle Monocytes/100 WBC (Bld) 6.6 % Normal 1.7-12.0 [facility] Comment on above: Performed By: #### C BC #### [facility] [address] [place] [address] Dr. Sandi Michelle NEUT # 5.4 103/ul Normal 1.4-6.5 [facility] Comment on above: Performed By: #### C BC #### [facility] [address] [place] [address] Dr. Sandi Michelle Neutrophils/100 WBC (Bld) 68.6 % Normal 43.0-75.0 [facility] Comment on above: Performed By: #### C BC #### [facility] [address] [place] [address] Dr. Sandi Michelle Platelet mean volume (Bld) [Entitic vol] 10.1 fL Normal 9.5-13.5 [facility] Comment on above: Performed By: #### C BC #### [facility] [address] [place] [address] Dr. Sandi Michelle PLT 237 103/ul Normal 150-450 [facility] Comment on above: Performed By: #### C BC #### [facility] [address] [place] [address] Dr. Sandi Michelle RBC 3.88 106/ul Critically low 4.20-5.40 [facility] Comment on above: Performed By: #### C BC #### [facility] [address] [place] [address] Dr. Sandi Michelle WBC 7.9 103/ul Normal 4.0-11.0 [facility] Comment on above: Performed By: #### C BC #### [facility] [address] [place], [place] [id number] Dr. Sandi Michelle CULTURE URINEon 11-21-2021 CULTURE URINE Culture Observations : LIGHT GROWTH OF MIXED GENITAL MENDEZ. NO POTENTIAL PATHOGENS SEEN. Normal [facility] Comment on above: Performed By: #### U RCX #### [facility] [address] [place] [address] Dr. Sandi Michelle GLYCOHEMOGLOBIN A1Con 2021 ADA RECOMMENDATION SEE BELOW Normal [facility] Comment on above: Result Comment: ADA RECOMMENDED LIMIT 4.0 - 6.0 ADA THERAPEUTIC TARGET < 7.0 ACTION SUGGESTED > 7.0 Performed By: #### A 1C ####[facility] [address] [address]Dr. Sandi Michelle Glucose [Mass/Vol] 103 mg/dL Normal [facility] Comment on above: Performed By: #### A 1C ####[facility] [address] [address]Dr. Sandi Michelle HbA1c (Bld) [Mass fraction] 5.2 % Normal 4.5-6.2 [facility] Comment on above: Performed By: #### A 1C ####[facility] [address] [address]Dr. Sandi Michelle TYPE AND SCREENon 11-21-2021 TYPE AND SCREEN Negative Normal [facility] Comment on above: Performed By: #### T NS #### [facility] [address] [address] [address] Sandi Michelle US PREG TVon 11-03-2021 US PREG TV EXAMINATION: US PREG TV HISTORY: Hemorrhagic complication of COMPARISON: No relevant comparison available. FINDINGS: GESTATIONAL SAC: Present and normal appearing. POLE: Present and normal appearing. YOLK SAC: Present. CARDIAC: Present. UTERUS: Normal size and appearance. OVARIES: Right: Corpus lutein cyst Left: Normal. CERVIX: 3.1 cm in length and closed. CUL-DE-SAC: Normal. OTHER: Tiny subchorionic hematoma. AGE BY LMP: 7 weeks, 1 day JOSE BY LMP: 06/20/2022 AGE BY US CRL: 7 weeks, 3 days JOSE BY US CRL: 06/18/2022 IMPRESSION: 1. Single live intrauterine . Electronically authenticated by: TIFF URIBE Date: 2021-11-03 07:19 Normal [facility] PREG QUANT HCGon 10-14-2021 HCG QUANT 469 mIU/mL Normal [facility] Comment on above: Performed By: #### P REGQNT #### [facility] [address], [place] [address] Dr. Sandi Michelle HCG RANGE SEE BELOW Normal [facility] Comment on above: Result Comment: 5-50 0-1 WEEK 40-300 1-2 WEEKS 100-1,000 2-3 WEEKS 500-6,000 3-4 WEEKS 5,000-200,000 1-2 MONTHS 10,000-100,000 2-3 MONTHS 3,000-50,000 2ND TRIMESTER 1,000-50,000 3RD TRIMESTER Performed By: #### P REGQNT #### [facility] [address], [place] [address] Dr. Sandi Michelle PREG QUANT HCGon 10-12-2021 HCG QUANT 184 mIU/mL Normal [facility] Comment on above: Performed By: #### C BC #### [facility] [address], [place] [address] Dr. Sandi Michelle HCG RANGE SEE BELOW Normal [facility] Comment on above: Result Comment: 5-50 0-1 WEEK 40-300 1-2 WEEKS 100-1,000 2-3 WEEKS 500-6,000 3-4 WEEKS 5,000-200,000 1-2 MONTHS 10,000-100,000 2-3 MONTHS 3,000-50,000 2ND TRIMESTER 1,000-50,000 3RD TRIMESTER Performed By: #### C BC #### [facility] [address], [place] [address] Dr. Sandi Michelle PROTEIN C FUNC ACTIVITYon Prt C Activity (Chromogenic) 130 % Normal [facility] Comment on above: Result Comment: Refe rence Range: 17 years and older: 73 - 180 Effective August 10, 2021 Prt C Activity, (Chromogenic) will be made non-orderable. This will not affect any profile that includes Prt C Activity (Chromogenic). [facility] offers [id number] Protein C Functional. For more information please contact your local [facility] Social Worker. Performed By: #### P RCACT ####[facility] [address] [place], [place] [address]WlDr. Sandi Michelle FACTOR V LEIDEN MUTATION CIARAN LYSISon 07-27-2021 Factor V Leiden Comment Normal [facility] Comment on above: Result Comment: Resu lt: c.1601G>A (p.Ipa380Kvm) - Not Detected . This result is not associated with an increased risk for venous thromboembolism. See Additional Clinical Information and Comments. Additional Clinical Information: Venous thromboembolism is a multifactorial disease influenced by genetic, environmental, and circumstantial risk factors. The c.1601G>A (p. Yyd128Nrl) variant in the F5 gene, commonly referred to as Factor V Leiden, is a genetic risk factor for venous thromboembolism. Heterozygous carriers of this variant have a 6- to 8-fold increased risk for venous thromboembolism. Individuals homozygous for this variant (ie, with a copy of the variant on each chromosome) have an approximately 80-fold increased risk for venous thromboembolism. Individuals who carry both a c.*97G>A variant in the F2 gene and Factor V Leiden have an approximately 20-fold increased risk for venous thromboembolism. Risks are likely to be even higher in more complex genotype combinations involving the F2 c.*97G>A variant and Factor V Leiden (PMID: 87638558). Additional risk factors include but are not limited to: deficiency of protein C, protein S, or antithrombin III, age, male sex, personal or family history of deep vein thromboembolism, smoking, surgery, prolonged immobilization, malignant neoplasm, tamoxifen treatment, raloxifene treatment, oral contraceptive use, hormone replacement therapy, and . Management of thrombotic risk and thrombotic events should follow established guidelines and fit the clinical circumstance. This result cannot predict the occurrence or recurrence of a thrombotic event. . Comment: Genetic counseling is recommended to discuss the potential clinical implications of positive results, as well as recommendations for testing family members. . Genetic Coordinators are available for health care providers to discuss results at [phone]). . Test Details: Variant Analyzed: c.1601G>A (p. [id number]), referred to as Factor V Leiden . Methods/Limitations: DNA analysis of the F5 gene (NM_000130.5) was performed by PCR amplification followed by restriction enzyme analysis. The diagnostic sensitivity is >99%. Results must be combined with clinical information for the most accurate interpretation. Molecular-based testing is highly accurate, but as in any laboratory test, diagnostic errors may occur. False positive or false negative results may occur for reasons that include genetic variants, blood transfusions, bone marrow transplantation, somatic or tissue-specific mosaicism, mislabeled samples, or erroneous representation of family relationships. . This test was developed and its performance characteristics determined by [employer]. It has not been cleared or approved by the Food and Drug Administration. . References: Masoud Galloway, Hawa GUTIÉRREZ, Randy R, Moses WW, Luis A JH; [facility] Professional Practice and Guidelines Committee. Addendum: [employer] consensus statement on factor V Leiden mutation testing. [place] [employer]. 2020Sep 26. doi: 10.1038/k70521-898-56311-b. PMID: 17639590. . Miriam GAMING. Factor V Leiden Thrombophilia. 1998December 05 [Updated 2017Jul 28]. In: Jv MP, Delia HH, Ian RA, et al., editors. Jovita(R) [Internet]. [place] ([place]): [facility]; 0807-7070. Available from: https://www.ncbi.nlm.nih.gov/books/KKO6833/ . Jonh S, Hawa GUTIÉRREZ, Francisco Javier X, Leobardo B, Ash EB, Deysi P, Mari CS; [facility] Laboratory Scallop Cutter Machine Committee. Venous thromboembolism laboratory testing (factor V Leiden and factor II c.*97G>A), 2018 update: a technical standard of the [employer] ([employer]MG). [place] [employer]. 2018 Jun;20(12):1502-3576. doi: 10.1038/e45500-590-1168-x. Epub 2017Apr 28. PMID: 67536022. . Martha Guillen, PhD, FAC Lindsay Jaquez, PhD, [facility]AC[facility] Pete Brown, PhD, [facility]ACMG Geronimo Mcdaniel, PhD, FACMG Norm Hays, PhD, FAC Maureen Mancilla, PhD, [facility] Performed By: #### F CR ####[facility] [address] [place], [place] [address]Oh. Sandi Michelle ANTITHROMBIN ACTIVITYon 01-0 Antithrombin Activity 102 % Normal 75-135 [facility] Comment on above: Result Comment: Dire ct Xa inhibitor anticoagulants such as rivaroxaban, apixaban and edoxaban will lead to spuriously elevated antithrombin activity levels possibly masking a deficiency. Performed By: #### C BC #### [facility] [address] [place] [address] [address] Sandi Michelle B-2 GLYCOPROTEIN AB IGGon Beta-2 Glycoprotein I Ab, IgG <9 Normal 0-20 [facility] Comment on above: Result Comment: The reference interval reflects a 3SD or 99th percentile interval, which is thought to represent a potentially clinically significant result in accordance with the International Consensus Statement on the classification criteria for definitive antiphospholipid syndrome (APS). J Thromb Haem 2006;4:295-306. Performed By: #### B 2GPG ####[facility] [address] [place] [address]Dr. Sandi Michelle B2-GLYCOPROTEIN 1 AB IGMon 0 07-25-2021 Beta-2 Glycoprotein I Ab, IgM <9 Normal 0-32 [facility] Comment on above: Result Comment: The reference interval reflects a 3SD or 99th percentile interval, which is thought to represent a potentially clinically significant result in accordance with the International Consensus Statement on the classification criteria for definitive antiphospholipid syndrome (APS). J Thromb Haem 2006;4:295-306. Performed By: #### B GLYIGM ####[facility] [address] [place] [address]Dr. Sandi Michelle LUPUS ANTICOAGULANT W/REFLEX on 07-24-2021 aPTT Coag (Bld) [Time] 30.9 s Normal 0.0-51.9 [facility] Comment on above: Performed By: #### L UPUSRF ####[facility] [address] [place] [address]Dr. Sandi Michelle dRVVT 33.0 sec Normal 0.0-47.0 [facility] Comment on above: Performed By: #### L UPUSRF ####[facility] [address] [place] [address]Dr. Sandi Michelle Interpretation Comment: Normal The [facility] Comment on above: Result Comment: No l upus anticoagulant was detected. Performed By: #### L UPUSRF ####[facility] [address] [place] [id number]. Sanjuanitasonia Miguel Angel PROTEIN S ANTIGENon 07-24-20 21 Protein S, Free 104 % Normal 61-136 [facility] Comment on above: Performed By: #### P RTSAG ####[facility] [address] [place] [id number]. Sandi Michelle Protein S, Total 90 % Normal 60-150 [facility] Comment on above: Result Comment: This test was developed and its performance characteristics determined by [employer]. It has not been cleared or approved by the Food and Drug Administration. Performed By: #### P RTSAG ####[facility] [address] [place] [address]Dr. Sandi Michelle PROTEIN S, FUNCTIONALon 12- Protein S-Functional 107 % Normal 63-140 [facility] Comment on above: Result Comment: Prot ein S activity may be falsely increased (masking an abnormal, low result) in patients receiving direct Xa inhibitor (e.g., rivaroxaban, apixaban, edoxaban) or a direct thrombin inhibitor (e.g., dabigatran) anticoagulant treatment due to assay interference by these drugs. Performed By: #### C BC #### [facility] [address] [place] [address] Dr. Sandi Michelle ANTICARDIOLIPIN AB (JEANIE) IGG on 07-23-2021 Anticardiolipin Ab,IgG,Qn <9 Normal 0-14 [facility] Comment on above: Result Comment: Nega tive: <15 Indeterminate: 15 - 20 Low-Med Positive: >20 - 80 High Positive: >80 Performed By: #### C ARDLIP #### [facility] [address] [place] [address] [address] Sandi Michelle ANTICARDIOLIPIN AB (JEANIE) IGM on 07-23-2021 Anticardiolipin Ab,IgM,Qn 12 MPL U/mL Normal 0-12 [facility] Comment on above: Result Comment: Nega tive: <13 Indeterminate: 13 - 20 Low-Med Positive: >20 - 80 High Positive: >80 Performed By: #### C ARDIGM ####[facility] [address] [place], [place] [address]Qg. Sandi Michelle Vital Signs Date Time Vital Sign Value Performing Clinician Bayron pate 01-21-2022 03:06-0400 Body weight 72.[address] MELINDA RAND [facility] Comment on above: Performed By: #### A FPMAT ####[facility] [address] [place], [place] [address]Os. Sandi Michelle Encounters Encounter Date Encounter Type Care Provider Facility Start: 12-29-2023 End: 12-29-2023 ambulatory MELINDA RAND Not Available Start: 07-19-2023 End: 07-19-2023 ambulatory MELINDA RAND Not Available Start: 06-10-2022 End: 06-10-[address] MELINDA RAND Facility:[facility] Start: 06-08-2022 Evaluation and manag ement of inpatient DR MELINDA RAND Facility:[facility] Start: 06-08-2022 End: 06-08-[address] MELINDA RAND Facility:[facility] Start: 06-04-[address] MELINDA RAND Facility :[facility] Start: 06-04-2022 End: 06-06-2022 Evaluation and management of inpatient DR MELINDA RAND Facility:[facility] Start: 05-28-2022 End: 05-28-[address] MELINDA RAND Facility:[facility] Start: 05-27-2022 End: 05-27-[address] MELINDA RAND Facility:[facility] Start: 05-21-2022 End: 05-21-[address] AVI AKHTAR Facility:[facility] Start: 05-14-2022 End: 05-14-[address] AVI AKHTAR Facility:[facility] Start: 05-10-2022 End: 05-11-[address] MELINDA RAND Facility:[facility] Start: 04-29-2022 End: 04-30-[address] MELINDA RAND Facility:[facility] Start: 04-27-2022 End: 04-28-[address] MELINDA RAND Facility:[facility] Start: 03-15-2022 End: 03-16-[address] MELINDA RAND Facility:[facility] Start: 02-02-2022 End: 02-02-[address] MELINDA RAND Facility:[facility] Start: 02-01-2022 End: 02-02-[address] MELINDA RAND Facility:[facility] Start: 01-18-2022 End: 01-19-[address] MELINDA RAND Facility:[facility] Start: 11-21-2021 End: 11-22-[address] MELINDA RAND Facility:[facility] Start: 11-05-[address] MELINDA RAND Facility :[facility] Start: 11-02-2021 End: 11-03-[address] MELINDA RAND Facility:[facility] Start: 10-12-2021 End: 10-22-[address] MELINDA RAND Facility:[facility] Start: 07-22-2021 End: 07-23-[address] MELINDA RAND Facility:[facility] Procedures Date Procedure Procedure Detail Performing Clinician Start: 06-04-2022 Extraction of Produc ts of Conception, Low Cervical, Open Approach DR MELINDA RAND Payers Date Payer Category Payer Unknown [id number] 2.16.84 0.1.298519.3.579.2.593 1991 Unknown [id number] 2.16.84 0.1.926862.3.579.2.593 1991 Unknown [id number] 2.16.84 0.1.256903.3.579.2.593 1991 Unknown [id number] 2.16.84 0.1.176735.3.579.2.593 1991 Unknown [id number] 2.16.84 0.1.503265.3.579.2.593 1991 Unknown [id number] 2.16.84 0.1.581618.3.579.2.593 1991 Unknown [id number] 2.16.84 0.1.507438.3.579.2.593 1991 Unknown [id number] 2.16.84 0.1.436719.3.579.2.593 1991 Unknown [id number] 2.16.84 0.1.433071.3.579.2.593 1991 Unknown [id number] 2.16.84 0.1.148106.3.579.2.593 1991 Unknown [id number] 2.16.84 0.1.282628.3.579.2.593 1991 Unknown [id number] 2.16.84 0.1.557080.3.579.2.593 1991 Unknown [id number] 2.16.84 0.1.165713.3.579.2.593 1991 Unknown [id number] 2.16.84 0.1.937903.3.579.2.593 1991 Unknown [id number] 2.16.84 0.1.789281.3.579.2.593 1991 Unknown [id number] 2.16.84 0.1.500674.3.579.2.593 1991 Unknown [id number] 2.16.84 0.1.555382.3.579.2.593 1991 Unknown [id number] 2.16.84 0.1.444232.3.579.2.593 1991 Unknown [id number] 2.16.84 0.1.970921.3.579.2.593 1991 Unknown [id number] 2.16.84 0.1.660467.3.579.2.593 1991 Unknown [id number] 2.16.84 0.1.428959.3.579.2.593 1991 Unknown [id number] 2.16.84 0.1.744978.3.579.2.1259 1991 Unknown [id number] 2.16.840 .1.162599.3.579.2.1259 1958 Private Health Insurance [id number] Clinical Note 06-04-2022 Note Date & Type Note Facility 06-04-2022 Note OPERATIVE NOTE OPERATION DATE: 06/04/2022 PROCEDURE: Primary low transverse section. PREOPERATIVE DIAGNOSIS: 1. Intrauterine at 37 5/7 weeks. 2. Breech presentation. POSTOPERATIVE DIAGNOSIS: 1. Intrauterine at 37 5/7 weeks. 2. Breech presentation. 3. 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 SURGEON: Melinda Rand PROJECT CONTROL MANAGER: SCARLET Albert URINE OUTPUT: Yellow and clear. BLOOD LOSS: 700 mL. SPECIMEN: Placenta. FINDINGS: Viable male. Apgars and weight unknown at this time. PROCEDURE: Patient was taken back to the Operating Room where she was given a spinal anesthesia with Duramorph without difficulty. She was prepped and draped in the normal sterile fashion. A Pfannenstiel skin incision was then made 2 cm above the symphysis pubis and carried down to underlying rectus fascia using a Bovie. The fascia was incised in the midline and extended laterally using Han scissors. Two Jhonatan clamps were placed on the superior aspect of the fascia and dissected off the underlying rectus muscles. The same was performed on the inferior aspect as well. The muscles were then in the midline. Peritoneum was identified and entered bluntly. The peritoneum was then extended superiorly and inferiorly with good visualization of the bladder. The bladder blade was inserted. A low transverse incision was made on the patient's uterus and extended laterally digitally. The was then delivered atraumatically after the bladder blade was removed in the cephalic position. The cord was clamped and cut. Cord blood was obtained. The infant was handed off to awaiting team. The patient's placenta was spontaneously delivered. The uterus was then exteriorized. The uterus was cleared of all clots and debris. The bladder blade was reinserted. The patient's uterine incision was closed using #0 Vicryl in a running lock fashion. Excellent hemostasis was assured. The uterus was then returned to the patient's abdomen. The patient's abdomen was copiously irrigated using warm saline. Peritoneal gutters were cleared of all clots and debris. Again excellent hemostasis was assured. The patient's peritoneum was closed using 3-0 Vicryl in a running fashion. The patient's fascia was closed using #0 Vicryl in a running fashion. The patient's skin was closed using 4-0 Vicryl subcuticularly. The patient tolerated the procedure well. Sponge, lap, and needle counts were correct x2. The patient was taken to the Recovery Room in stable condition. [facility] Summary Purpose Family History No Family History Records FoundNo Family History Records Found Advance Directives No Advanced Directives Records FoundNo Advanced Directives Records Found Additional Source Comments INFORMATION SOURCE (unrecogn ized section and content) DATE CREATED AUTHOR 06/14/2022 [facility] [place] DATE CREATED AUTHOR 'S ORGANIZ ATION 12/31/2023 [facility] [place] [facility] EPIC FOR RECORDS PERTAINING TO PATIENTS WHO ARE OR HAVE BEEN ENROLLED IN A CHEMICAL DEPENDENCY/SUBSTANCEABUSE PROGRAM, SOME INFORMATION MAY BE OMITTED. This clinical summary was aggregated from multiple sources. Caution should be exercised in using it in the provision of clinical care. This summary normalizes information from multiple sources, and as a consequence, information in this document may materially change the coding, format and clinical context of patient data. In addition, data may be omitted in some cases. CLINICAL DECISIONS SHOULD BE BASED ON THE PRIMARY CLINICAL RECORDS. [employer] provides no warranty or guarantee of the accuracy or completeness of information in this document.
[2024-01-02 15:17] LABS: Basophils Absolute Auto 0.1 10^3/uL (0.0-0.1); Basophils Percent Auto 0.9 % (0.2-2.0); Eosinophils Absolute Auto 0.3 10^3/uL (0.0-0.7); Eosinophils Percent Auto 2.7 % (0.9-7.0); Hematocrit 38.4 % (36.0-48.0); Hemoglobin 12.8 g/dL (12.0-16.0); Immature Granulocytes Abs Auto 0.04 10^3/uL (0.00-0.03); Immature Granulocytes Pct Auto 0.4 % (0.0-0.5); Lymphocytes Absolute Auto 2.4 10^3/uL (1.2-3.8); Lymphocytes Percent Auto 26.1 % (20.5-60.0); Mean Corpuscular HGB Conc 33.3 g/dL (29.9-35.2); Mean Corpuscular Hemoglobin 31.9 pg (26.7-34.0); Mean Corpuscular Volume 95.8 fL (81.0-99.0); Mean Platelet Volume 10.2 fL (9.5-13.5); Monocytes Absolute Auto 0.8 10^3/uL (0.3-0.8); Neutrophils Absolute Auto 5.7 10^3/uL (1.4-6.5); Neutrophils Percent Auto 60.9 % (43.0-75.0); Platelet Count 210 10^3/uL (150-450); Red Blood Count 4.01 10^6/uL (4.20-5.40); Red Cell Distribution Width 13.1 % (11.0-15.0); White Blood Count 9.3 10^3/uL (4.0-11.0)
[2024-01-02 15:30] LABS: Estimated Average Glucose 94 mg/dL; Glycohemoglobin A1C 4.9 % (4.5-6.2)
[2024-01-02 16:21] LABS: Free T4 0.83 ng/dL (0.76-1.46)
[2024-01-02 17:14] LABS: HCG Quantitative <1 mIU/mL; Thyroid Stimulating Hormone 0.788 uIU/mL (0.358-3.740)
[2024-01-03 04:08] LABS: FSH 2.1 mIU/mL (.); Luteinizing Hormone(LH) 5.8 mIU/mL (.)
== END 2024-01-02 14:25 | disposition home or self-care (01) ==
LOC: LAB 14:26
PROVIDERS: PCP Obstetrics & Gynecology; Visit Provider Obstetrics & Gynecology
DX: N97.0 Female infertility associated with anovulation (principal)
CPT/HCPCS: 36415; 82626; 82627; 83001; 83002; 83036; 84439; 84443; 84702; 85025

== ENCOUNTER 2024-01-11 07:39 | Day surgery (SDC) | payer OTHER, SELFPAY ==
--- OUTSIDE RECORDS SUMMARY | 2024-01-11 07:41 | XMS_ITS ---
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 Name Role Phone OTONIEL, DR LAWRENCE Admitting [...] Procedure Practitioner Unavailab SRIKANTH James Consulting Unavailable JOSE RAMON BENNETT Consulting Unavailable MISSY PIERRE Consulting Unavailable OTONIEL, [...] Consulting Unavailable OTONIEL, DR LAWRENCE Consulting Unavailable SHANW, SRIKANTH Consulting Unavailable OTONIEL, DR LAWRENCE Admitting [...] Attending Unavailable TELLY, DR PENNINGTON Consulting Unavailable DENTON, DR RIGO Medina Consulting Unavailable OTONIEL, DR LAWRENCE Consulting Unavailable OTONIEL, MELINDA Attending Unavailable OTONIEL, MELINDA Attending Unavailable Allergies Allergy Classification Reported Allergen(s) Allergy Type Date of Onset Reaction(s) Facility (2 sources) Acetaminophen / HYDROcodone Drug Allergy [facility] Repository Encounters Encounter Date Encounter Type Care Provider [...] Facility:[facility] Start: 01-18-2022 End: 01-19-[address] LAWRENCE OTONIEL Facility:[facility] Start: 11-21-2021 End: 11-22-[address] MELINDA RAND Facility:[facility] Start: 11-05-[address] MELINDA RAND Facility :[facility] Start: 11-02-2021 End: 11-03-[address] MELINDA RAND Facility:[facility] Start: 10-12-2021 End: 10-22-[address] MELINDA RAND Facility:[facility] Start: 07-22-2021 End: 07-23-[address] LAWRENCE OTONIEL Facility:[facility] Payers Date Payer Category Payer Unknown [id number] 2..84 [id number] 1990 Unknown [id number] 2.16.84 [id number] 1990 Unknown [id number] 2.16.84 0.1.468601.3.579.2.593 1990 Unknown [id number] 2.16.84 0.1.856500.3.579.2.593 1990 Unknown [id number] 2.16.84 0.1.404066.3.579.2.593 1990 Unknown [id number] 2.16.84 0.1.183024.3.579.2.593 1990 Unknown [id number] 2.16.84 0.1.718489.3.579.2.593 1990 Unknown [id number] 2.16.84 0.1.852165.3.579.2.593 1990 Unknown [id number] 2.16.84 0.1.280313.3.579.2.593 1990 Unknown [id number] 2.16.84 0.1.783181.3.579.2.593 1990 Unknown [id number] 2.16.84 0.1.682483.3.579.2.593 1990 Unknown [id number] 2.16.84 0.1.953636.3.579.2.593 1990 Unknown [id number] 2.16.84 0.1.337914.3.579.2.593 1990 Unknown [id number] 2.16.84 0.1.496657.3.579.2.593 1990 Unknown [id number] 2.16.84 0.1.179066.3.579.2.593 1990 Unknown [id number] 2.16.84 0.1.992157.3.579.2.593 1990 Unknown [id number] 2.16.84 0.1.064235.3.579.2.593 1990 Unknown [id number] 2.16.84 0.1.655572.3.579.2.593 1990 Unknown [id number] 2.16.84 0.1.511085.3.579.2.593 1990 Unknown [id number] 2.16.84 0.1.034952.3.579.2.593 1990 Unknown [id number] 2.16.84 0.1.147518.3.579.2.593 1990 Unknown [id number] 2.16.84 0.1.590758.3.579.2.1259 1990 Unknown [id number] 2.16.840 .1.342882.3.579.2.1259 1958 Private Health Insurance [id number] Problems Active Problems Problem Classification Problem Date [...] body structures; Translations: [ABNORML FIND DX IMG OT BODY STRUC] Onset: 05-12-2022 Chronic Other screening [...] PG [facility] AND PP] Onset: 07-22-2021 Episodic Procedures Date Procedure Procedure Detail Performing Clinician Start: 06-04-2022 Extraction of Produc ts of Conception, Low Cervical, Open Approach DR MLEINDA RAND Results Test Name Value Interpretation Reference Range Facility CBC AUTO DIFFon 06-05-2022 BASO # 0.0 103/ul Normal 0.0-0.1 [facility] Comment on above: Performed By: #### C BC #### [facility] [address] [address] [address] Sandi Michelle Basophils/100 WBC (Bld) 0.2 % Normal 0.2-2.0 [facility] Comment on above: Performed By: #### C BC #### [facility] [address] [place] [address] Dr. Sandi Michelle EO # 0.0 103/ul Normal 0.0-0.7 [facility] Comment on above: Performed By: #### C BC #### [facility] [address] [address] [address] Sandi Michelle Eosinophils/100 WBC (Bld) 0.2 % Critically low 0.9-7.0 [facility] Comment on above: Performed By: #### C BC #### [facility] [address] [place] [address] Dr. Sandi Michelle Erythrocyte distribution width (RBC) [Ratio] 14.3 % Normal 11.0-15.0 [facility] Comment on above: Performed By: #### C BC #### [facility] [address] [address] [address] Sandi Michelle Hematocrit (Bld) [Volume fraction] 27.3 % Critically low 36.0-48.0 [facility] Comment on above: Performed By: #### C BC #### [facility] [address] [place] [address] Dr. Sandi Michelle Hemoglobin (Bld) [Mass/Vol] 9.3 g/dL Critically low 12.0-16.0 [facility] Comment on above: Result Comment: DELI VERY Performed By: #### C BC #### [facility] [address] [place] [address] Dr. Sandi Michelle IG # 0.14 10e3/ul Critically high 0.00-0.03 [facility] Comment on above: Performed By: #### C BC #### [facility] [address] [place] [address] Dr. Sandi Michelle IG % 1.1 % Critically high 0.0-0.5 [facility] Comment on above: Performed By: #### C BC #### [facility] [address] [place] [address] Dr. Sandi Michelle LYMPH # 1.6 103/ul Normal 1.2-3.8 [facility] Comment on above: Performed By: #### C BC #### [facility] [address] [place] [address] Dr. Sandi Michelle Lymphocytes/100 WBC (Bld) 12.1 % Critically low 20.5-60.0 [facility] Comment on above: Performed By: #### C BC #### [facility] [address] [place] [address] Dr. Sandi Michelle MANUAL DIFF REQ NO Normal [facility] Comment on above: Performed By: #### C BC #### [facility] [address] [place] [address] Dr. Sandi Michelle MCH (RBC) [Entitic mass] 31.8 pg Normal 26.7-34.0 [facility] Comment on above: Performed By: #### C BC #### [facility] [address] [place] [address] Dr. Sandi Michelle MCHC (RBC) [Mass/Vol] 34.1 g/dL Normal 29.9-35.2 [facility] Comment on above: Performed By: #### C BC #### [facility] [address] [place] [address] Dr. Sandi Michelle MCV (RBC) [Entitic vol] 93.5 fL Normal 81.0-99.0 [facility] Comment on above: Performed By: #### C BC #### [facility] [address] [place] [address] Dr. Sandi Michelle MONO # 0.9 103/ul Critically high 0.3-0.8 [facility] Comment on above: Performed By: #### C BC #### [facility] [address] [place] [address] Dr. Sandi Michelle Monocytes/100 WBC (Bld) 6.8 % Normal 1.7-12.0 [facility] Comment on above: Performed By: #### C BC #### [facility] [address] [address] [address] Sandi Michelle NEUT # 10.3 103/ul Critically high 1.4-6.5 [facility] Comment on above: Performed By: #### C BC #### [facility] [address] [place] [address] Dr. Sandi Michelle Neutrophils/100 WBC (Bld) 79.6 % Critically high 43.0-75.0 [facility] Comment on above: Performed By: #### C BC #### [facility] [address] [place] [address] Dr. Sandi Michelle Platelet mean volume (Bld) [Entitic vol] 9.8 fL Normal 9.5-13.5 [facility] Comment on above: Performed By: #### C BC #### [facility] [address] [place] [address] Dr. Sandi Michelle PLT 138 103/ul Critically low 150-450 [facility] Comment on above: Performed By: #### C BC #### [facility] [address] [place] [address] Dr. Sandi Michelle RBC 2.92 106/ul Critically low 4.20-5.40 [facility] Comment on above: Performed By: #### C BC #### [facility] [address] [place] [address] Dr. Sandi Michelle WBC 12.9 103/ul Critically high 4.0-11.0 [facility] Comment on above: Performed By: #### C BC #### [facility] [address] [place] [address] Dr. Sandi Michelle CBC AUTO DIFFon 06-04-2022 BASO # 0.0 103/ul Normal 0.0-0.1 [facility] Comment on above: Performed By: #### C BC #### [facility] [address] [place] [address] Dr. Sandi Michelle Basophils/100 WBC (Bld) 0.3 % Normal 0.2-2.0 [facility] Comment on above: Performed By: #### C BC #### [facility] [address] [place] [address] Dr. Sandi Michelle EO # 0.0 103/ul Normal 0.0-0.7 [facility] Comment on above: Performed By: #### C BC #### [facility] [address] [place] [address] Dr. Sandi Michelle Eosinophils/100 WBC (Bld) 0.1 % Critically low 0.9-7.0 [facility] Comment on above: Performed By: #### C BC #### [facility] [address] [place] [address] Dr. Sandi Michelle Erythrocyte distribution width (RBC) [Ratio] 14.4 % Normal 11.0-15.0 [facility] Comment on above: Performed By: #### C BC #### [facility] [address] [place] [address] Dr. Sandi Michelle Hematocrit (Bld) [Volume fraction] 37.2 % Normal 36.0-48.0 [facility] Comment on above: Performed By: #### C BC #### [facility] [address] [place] [address] Dr. Sandi Michelle Hemoglobin (Bld) [Mass/Vol] 12.9 g/dL Normal 12.0-16.0 [facility] Comment on above: Performed By: #### C BC #### [facility] [address] [place] [address] Dr. Sandi Michelle IG # 0.23 10e3/ul Critically high 0.00-0.03 [facility] Comment on above: Performed By: #### C BC #### [facility] [address] [place] [address] Dr. Sandi Michelle IG % 1.6 % Critically high 0.0-0.5 [facility] Comment on above: Performed By: #### C BC #### [facility] [address] [place] [address] Dr. Sandi Michelle LYMPH # 2.3 103/ul Normal 1.2-3.8 [facility] Comment on above: Performed By: #### C BC #### [facility] [address] [place] [address] Dr. Sandi Michelle Lymphocytes/100 WBC (Bld) 16.0 % Critically low 20.5-60.0 [facility] Comment on above: Performed By: #### C BC #### [facility] [address] [place] [address] Dr. Sandi Michelle MANUAL DIFF REQ NO Normal [facility] Comment on above: Performed By: #### C BC #### [facility] [address] [place] [address] Dr. Sandi Michelle MCH (RBC) [Entitic mass] 32.3 pg Normal 26.7-34.0 [facility] Comment on above: Performed By: #### C BC #### [facility] [address] [place] [address] Dr. Sandi Michelle MCHC (RBC) [Mass/Vol] 34.7 g/dL Normal 29.9-35.2 [facility] Comment on above: Performed By: #### C BC #### [facility] [address] [place] [address] Dr. Sandi Michelle MCV (RBC) [Entitic vol] 93.0 fL Normal 81.0-99.0 [facility] Comment on above: Performed By: #### C BC #### [facility] [address] [place] [address] Dr. Sandi Michelle MONO # 0.8 103/ul Normal 0.3-0.8 [facility] Comment on above: Performed By: #### C BC #### [facility] [address] [place] [address] Dr. Sandi Michelle Monocytes/100 WBC (Bld) 5.8 % Normal 1.7-12.0 [facility] Comment on above: Performed By: #### C BC #### [facility] [address] [place] [address] Dr. Sandi Michelle NEUT # 10.7 103/ul Critically high 1.4-6.5 [facility] Comment on above: Performed By: #### C BC #### [facility] [address] [place] [address] Dr. Sandi Michelle Neutrophils/100 WBC (Bld) 76.2 % Critically high 43.0-75.0 [facility] Comment on above: Performed By: #### C BC #### [facility] [address] [place] [address] Dr. Sandi Michelle Platelet mean volume (Bld) [Entitic vol] 10.9 fL Normal 9.5-13.5 [facility] Comment on above: Performed By: #### C BC #### [facility] [address] [place] [address] Dr. Sandi Michelle PLT 194 103/ul Normal 150-450 [facility] Comment on above: Performed By: #### C BC #### [facility] [address] [place] [address] Dr. Sandi Michelle RBC 4.00 106/ul Critically low 4.20-5.40 [facility] Comment on above: Performed By: #### C BC #### [facility] [address] [place] [address] Dr. Sandi Michlele WBC 14.0 103/ul Critically high 4.0-11.0 [facility] Comment on above: Performed By: #### C BC #### [facility] [address] [place] [address] Dr. Sandi Michelle Covid-19 PCR ([facility])on 05-25 SARS-CoV-2 (COVID-19) RNA ALETHEA+probe Ql (Unsp spec) Not detected Normal NOT DETECTED [facility] Comment on above: Result Comment: When [...] for this test is supported by the [place] of Health and Human Service's declaration that [...] be used). Performed By: #### C VDTBH ####[facility] [address] [place], [place] [address]Dr. Sandi Michelle DRUG SCREEN RAPID (URINE)on 06-04-2022 AMP Negative Normal NEGATIVE [facility] Comment on above: Performed By: #### D RUGRPD ####[facility] [address] [place], [place] [address]Dr. Sandi Michelle BAR Negative Normal NEGATIVE [facility] Comment on above: Performed By: #### D RUGRPD ####[facility] [address] [place], [place] [address]Dr. Sandi Michelle BUP Negative Normal NEGATIVE [facility] Comment on above: Performed By: #### D RUGRPD ####[facility] [address] [place], [place] [address]Dr. Sandi Michelle BZO Negative Normal NEGATIVE [facility] Comment on above: Performed By: #### D RUGRPD ####[facility] [address] [place], [place] [address]Dr. Sandi Michelle NINO Negative Normal NEGATIVE [facility] Comment on above: Performed By: #### D RUGRPD ####[facility] [address] [place], [place] [address]Dr. Sandi Michelle CUT-OFFS SEE BELOW Normal [facility] Comment on above: Result Comment: AMP (Amphetamine): 500ng/mL, BAR (Barbituates): 200 ng/mL, BZO (Benzodiazepines): 150 ng/mL, BUP (Buprenorphine): 10 ng/mL, NINO (Cocaine): 150 ng/mL, mAMP (Methamphetamine): 500 ng/mL, MTD (Methadone): 200 ng/mL, OPI (Opiates): 100 ng/mL, OXY (Oxycodone): 100 ng/mL, PCP (Phencyclidine): 25 ng/mL, PPX (Propoxyphene): 300 ng/mL, THC (Cannabinoids): 50 ng/mL, TCA (Trycyclic Antidepressants): 300 ng/mL Performed By: #### D RUGRPD ####[facility] [address] [place], [place] [address]Dr. sonia [facility] DRUG CUT HEADER DRUG CLASS TEST SYSTEM CUT-OFF CONCENTRATIONS ARE FOLLOWS: Normal [facility] Comment on above: Performed By: #### D RUGRPD ####[facility] [address] [place], [place] [address]Dr. Sandi Michelle mAMP Negative Normal NEGATIVE [facility] Comment on above: Performed By: #### D RUGRPD ####[facility] [address] [place], [place] [address]Dr. Sandi [facility] MTD Negative Normal NEGATIVE [facility] Comment on above: Performed By: #### D RUGRPD ####[facility] [address] [place], [place] [address]Dr. Sandi Michelle OPI Negative Normal NEGATIVE [facility] Comment on above: Performed By: #### D RUGRPD ####[facility] [address] [place], [place] [address]Dr. Sanjuanitasonia Michelle OXY Negative Normal NEGATIVE [facility] Comment on above: Performed By: #### D RUGRPD ####[facility] [address] [place], [place] [address]Dr. Sandi [facility] PCP Negative Normal NEGATIVE [facility] Comment on above: Performed By: #### D RUGRPD ####[facility] [address] [place], [place] [address] Normal NEGATIVE [facility] Comment on above: Performed By: #### D RUGRPD ####[facility] [address] [address]Dr. Sandi Michelle TCA Negative Normal NEGATIVE [facility] Comment on above: Performed By: #### D RUGRPD ####[facility] [address] [address]Dr. Sandi Michelle THC Negative Normal NEGATIVE [facility] Comment on above: Performed By: #### D RUGRPD ####[facility] [address] [address]Dr. Sandi Michelle TYPE AND SCREENon 06-04-2022 TYPE AND SCREEN Negative Normal [facility] Comment on above: Performed By: #### T NS ####[facility] [address] [place], [place] [address]Dr. Sandi Michelle US PREG BIOPHY W NON [...] RIGO FISCHER Date: 2022-05-30 08:30 Normal [facility] GROUP B STREP CULTUREon S. agalactiae Ag Ql (Unsp spec) Culture Observations: NEGATIVE FOR GROUP B STREPTOCOCCUS. Normal [facility] Comment on above: Performed By: #### G BSCX ####[facility] [address] [address]Dr. Sandi Michelle US PREG BIOPHY W NON [...] by: RIGO FISCHER Date: 2022-05-23 09:41 Normal [facility] US PREG BIOPHY W NON [...] by: RIGO FISCHER Date: 2022-05-16 16:10 Normal [facility] US PREG GROWTHon 05-11-2022 US PREG GROWTH EXAMINATION: US PREG GROWTH, US PREG CERVICAL LENGTH HISTORY: Excessive growth affecting management of mother COMPARISON: Ultrasound growth 04/27/2022 FINDINGS: Heart Rate: 137.8 bpm (accession [id number]), 167.3 bpm (accession [id number]) Number: 1.0 Position: BREECH Amniotic Fluid Volume: [...] by: TIFF URIBE Date: 2022-05-11 19:19 Normal [facility] US PREG GROWTHon 04-27-2022 US PREG GROWTH [...] by: TIFF URIBE Date: 2022-04-27 20:51 Normal [facility] GLUCOSE - 1HRon 03-15-2022 Glucose [Mass/Vol] 137 mg/dL Critically high 74-106 [facility] Comment on above: Performed By: #### C BC #### [facility] [address] [address] [address] Sandi Michelle HEMOGRAM AND PLATELon 2021 Hematocrit (Bld) [Volume fraction] 34.9 % Critically low 36.0-48.0 [facility] Comment on above: Performed By: #### C BC #### [facility] [address] [place] [address] Dr. Sandi Michelle Hemoglobin (Bld) [Mass/Vol] 11.5 g/dL Critically low 12.0-16.0 [facility] Comment on above: Performed By: #### C BC #### [facility] [address] [place] [address] Dr. Sandi Michelle MCH (RBC) [Entitic mass] 31.8 pg Normal 26.7-34.0 [facility] Comment on above: Performed By: #### C BC #### [facility] [address] [place] [address] Dr. Sandi Michelle MCHC (RBC) [Mass/Vol] 33.0 g/dL Normal 29.9-35.2 [facility] Comment on above: Performed By: #### C BC #### [facility] [address] [place] [address] Dr. Sandi Michelle MCV (RBC) [Entitic vol] 96.4 fL Normal 81.0-99.0 [facility] Comment on above: Performed By: #### C BC #### [facility] [address] [place] [address] Dr. Sandi Michelle PLT 225 103/ul Normal 150-450 [facility] Comment on above: Performed By: #### C BC #### [facility] [address] [place] [address] Dr. Sandi Michelle RBC 3.62 106/ul Critically low 4.20-5.40 [facility] Comment on above: Performed By: #### C BC #### [facility] [address] [place] [address] Dr. Sandi Michelle WBC 12.9 103/ul Critically high 4.0-11.0 [facility] Comment on above: Performed By: #### C BC #### [facility] [address] [place] [address] Dr. Sandi Michelle CHLAMYDIA/GONOCOCCUS ALETHEA ( AB/URINE/PAPon 02-04-2022 Chlamydia trachomatis, ALETHEA Negative Normal Negative [facility] Comment on above: Performed By: #### C T/NGNA #### [facility] [address] [address] [address] Sandi Michelle Neisseria gonorrhoeae, ALETHEA Negative Normal Negative [facility] Comment on above: Performed By: #### C T/NGNA #### [facility] [address] [address] [address] Sandi Michelle PAP ACOG PANEL 2: 30 to 65on 02-04-2022 . . Normal [facility] Comment on above: Result Comment: Perf ormed at: WB Performed By: #### [id number] ####[facility] [address] [address]Dr. Sandi Michelle Age Gdln ACOG Testing 30-65 [facility] [facility] Comment on above: Performed By: #### 4 [id number] ####[facility] [address] [place] [address]DrDen Michelle DIAGNOSIS: Comment Normal [facility] Comment on above: Result Comment: NEGA TIVE FOR INTRAEPITHELIAL LESION OR MALIGNANCY. Performed at: WB Performed By: #### 4 [id number] ####[facility] [address] [place] [address]DrDen Michelle HPV Aptima Negative Normal Negative [facility] Comment on above: Result Comment: This nucleic acid amplification test detects fourteen high-risk HPV types (16,18,31,33,35,39,45,51,52,56,58,59,66,68) without differentiation. Performed at: =G Performed By: #### 4 [id number] ####[facility] [address] [place] [address]DrDen Michelle Methodology: Comment Normal [facility] Comment on above: Result Comment: This liquid based ThinPrep(R) pap test was screened with the use of an image guided system. Performed at: WB Performed By: #### 4 [id number] ####[facility] [address] [place] [address]DrDen Michelle Note: Comment Normal [facility] Comment on above: Result Comment: The Pap smear is a screening test designed to aid in the detection of premalignant and malignant conditions of the uterine cervix. It is not a diagnostic procedure and should not be used as the sole means of detecting cervical cancer. Both false-positive and false-negative reports do occur. . Performed at: WB Performed By: #### 4 [id number] ####[facility] [address] [place] [address]Dr. Sandi Michelle Performed by: Comment Normal [facility] Comment on above: Result Comment: Vikas Mcclellan, Epic Kaleidoscope Analyst (ASCP) Performed at: WB Performed By: #### 4 [id number] ####[facility] [address] [place] [address]Dr. Sanjuanitasonia Michelle Specimen adequacy: Comment Normal [facility] Comment on above: Result Comment: Sati sfactory for evaluation. No endocervical component is identified. Performed at: WB Performed By: #### 4 [id number] ####[facility] [address] [place] [address]Dr. Sandi Michelle VAGINITIS/VAGINOSIS DNA PROB Nicholas 02-03-2022 Karol species Negative Normal Negative [facility] Comment on above: Performed By: #### V AGINT ####[facility] [address] [place] [address]Dr. Sandi Michelle Gardnerella vaginalis Negative Normal Negative [facility] Comment on above: Performed By: #### V AGINT ####[facility] [address] [place] [address]Dr. Sanjuanitasonia [facility] Trichomonas vaginalis Negative Normal Negative [facility] Comment on above: Performed By: #### V AGINT ####[facility] [address] [place], [place] [address]Dr. Sanjuanitasonia Miguel Angel US PREG ANATOMY SINGLEon US PREG ANATOMY [...] RIGO FISCHER Date: 2022-02-01 19:32 Normal [facility] AFP MATERNAL FOR SPINA BIFID Aon 01-21-2022 AFP MoM 1.24 Normal [facility] Comment on above: Performed By: #### A FPMAT ####[facility] [address] [place] [address]Dr. Sandi Michelle AFP Value 55.2 ng/mL Normal [facility] Comment on above: Performed By: #### A FPMAT ####[facility] [address] [place] [address]DrDen Michelle AFP, Serum for Spina Bifida Report Normal [facility] Comment on above: Performed By: #### A FPMAT ####[facility] [address] [place] [address]Dr. Sandi Michelle Comment Comment Normal [facility] Comment on above: Result Comment: Iesha Sullivan, Ph.D., [facility] Director . References: Available Upon Request. . Multiples Of Median Cutoffs For AFP Elevations Bhandari 2.5 Black 2.8 IDD 2.0 Twins 4.5 Abbreviation Definitions IDD - Insulin Dep Diabetes OSBR - Open Spina Bifida Risk . For further inquiries contact [employer] at [phone]. . This test was developed and its performance characteristics determined by [email or web address]. It has not been cleared or approved by the Food and Drug Administration. Performed By: #### A FPMAT ####[facility] [address] [place] [id number]. Sandi Miguel Angel Gest Age Collection Date 18.1 weeks Normal [facility] Comment on above: Performed By: #### A FPMAT ####[facility] [address] [place] [id number]. Sandi Miguel Angel Gestat, Age Based on JOSE [facility] Comment on above: Result Comment: 05/26 Recalculations are not recommended when gestational dating by LMP and ultrasound are within 10 days. Performed By: #### A FPMAT ####[facility] [address] [place] [id number]. Sandi Miguel Angel Insulin Dep Diabetes Comment Normal [facility] Comment on above: Result Comment: Not provided. . Performed By: #### A FPMAT ####[facility] [address] [place] [id number]. Sandi Michelle Interpretation Comment Normal [facility] Comment on above: Result Comment: Inte rpretation: [...] Customer Services to discuss available options. The [employer] recommends amniocentesis be offered to women age 35 and older. Performed By: #### A FPMAT ####[facility] [address] [place], [place] [address]Il. Sandi Michelle [age] Normal [facility] Comment on above: Performed By: #### A FPMAT ####[facility] [address] [place] [id number]. Sandi Michelle Multiple Gestation No Normal [facility] Comment on above: Performed By: #### A FPMAT ####[facility] [address] [place] [id number]. Sandi Michelle OSBR Risk 1 [place] 57[address] [facility] Comment on above: Performed By: #### A FPMAT ####[facility] [address] [place] [address]Dr. Sandi Michelle PDF . Normal [facility] Comment on above: Performed By: #### A FPMAT ####[facility] [address] [place] [address]DrDen Michelle Race Normal [facility] Comment on above: Performed By: #### A FPMAT ####[facility] [address] [place] [address]DrDen Michelle Test Results: Negative Normal [facility] Comment on above: Performed By: #### A FPMAT ####[facility] [address] [place] [address]DrDen Michelle HEP B SURFACE ANTIGEN SCREEN on 11-22-2021 HBsAg Screen Negative Normal Negative [facility] Comment on above: Performed By: #### H BSANS ####[facility] [address] [place] [address]DrDen Michelle HEPATITIS C VIRUS AB W/ REFL EX QUANTon 11-22-2021 HCV AB 0.1 s/co ratio Normal 0.0-0.9 [facility] Comment on above: Performed By: #### C BC #### [facility] [address] [address] [address] Sandi Mihcelle Interpretation: Comment Normal [facility] Comment on above: Result Comment: Nega tive Not infected with HCV, unless recent infection is suspected or other evidence exists to indicate HCV infection. Performed By: #### C BC #### [facility] [address] [place] [address] Dr. Sandi Michelle HIV 1 AND 2 WITH REFLEXon HIV Screen 4th Generation wRfx Non-Reactive Normal Non Reactive [facility] Comment on above: Result Comment: HIV Negative HIV-1/HIV-2 antibodies and HIV-1 p24 antigen were NOT detected. There is no laboratory evidence of HIV infection. Performed By: #### H IV12 ####[facility] [address] [place] [address]Dr. Sandi Michelle RPR QUANTon 11-22-2021 Rapid Plasma Reagin, Quant Non-Reactive Normal NonRea<1:1 [facility] Comment on above: Result Comment: Plea se Note: This test does not meet current guidelines for screening and diagnosis of syphilis. This test is intended for following treatment response in patients being treated for syphilis infection. To screen for syphilis infection, a reflex cascade that includes both RPR and a treponema-specific assay should be utilized, such as Treponema pallidum (Syphilis) Screening [place] (926884) or Rapid Plasma Reagin (RPR) Test With Reflex to Quantitative RPR and Confirmatory Treponema pallidum Antibodies (060540). Performed By: #### C BC #### [facility] [address] [place] [address] Dr. Sandi Michelle RUBELLA AB IGGon 11-22-2021 Rubella Antibodies, IgG 9.33 index Normal Immune >0.99 [facility] Comment on above: Result Comment: Non- immune <0.90 Equivocal 0.90 - 0.99 Immune >0.99 Performed By: #### C BC #### [facility] [address] [place] [address] Dr. Sandi Michelle CBC AUTO DIFFon 11-21-2021 BASO # 0.0 103/ul Normal 0.0-0.1 [facility] Comment on above: Performed By: #### C BC #### [facility] [address] [place] [address] Dr. Sandi Michelle Basophils/100 WBC (Bld) 0.4 % Normal 0.2-2.0 [facility] Comment on above: Performed By: #### C BC #### [facility] [address] [place] [address] Dr. Sandi Michelle EO # 0.1 103/ul Normal 0.0-0.7 [facility] Comment on above: Performed By: #### C BC #### [facility] [address] [place] [address] Dr. Sandi Michelle Eosinophils/100 WBC (Bld) 0.6 % Critically low 0.9-7.0 [facility] Comment on above: Performed By: #### C BC #### [facility] [address] [place] [address] Dr. Sandi Michelle Erythrocyte distribution width (RBC) [Ratio] 11.9 % Normal 11.0-15.0 [facility] Comment on above: Performed By: #### C BC #### [facility] [address] [place] [address] Dr. Sandi Michelle Hematocrit (Bld) [Volume fraction] 37.1 % Normal 36.0-48.0 [facility] Comment on above: Performed By: #### C BC #### [facility] [address] [place] [address] Dr. Sandi Michelle Hemoglobin (Bld) [Mass/Vol] 12.2 g/dL Normal 12.0-16.0 [facility] Comment on above: Performed By: #### C BC #### [facility] [address] [place] [address] Dr. Sandi Michelle IG # 0.03 10e3/ul Normal 0.00-0.03 [facility] Comment on above: Performed By: #### C BC #### [facility] [address] [place] [address] Dr. Sandi Michelle IG % 0.4 % Normal 0.0-0.5 [facility] Comment on above: Performed By: #### C BC #### [facility] [address] [place] [address] Dr. Sandi Michelle LYMPH # 1.8 103/ul Normal 1.2-3.8 [facility] Comment on above: Performed By: #### C BC #### [facility] [address] [place] [address] Dr. Sandi Michelle Lymphocytes/100 WBC (Bld) 23.4 % Normal 20.5-60.0 [facility] Comment on above: Performed By: #### C BC #### [facility] [address] [place] [address] Dr. Sandi Michelle MANUAL DIFF REQ NO Normal [facility] Comment on above: Performed By: #### C BC #### [facility] [address] [place] [address] Dr. Sandi Michelle MCH (RBC) [Entitic mass] 31.4 pg Normal 26.7-34.0 [facility] Comment on above: Performed By: #### C BC #### [facility] [address] [place] [address] Dr. Sandi Michelle MCHC (RBC) [Mass/Vol] 32.9 g/dL Normal 29.9-35.2 [facility] Comment on above: Performed By: #### C BC #### [facility] [address] [place] [address] Dr. Sandi Michelle MCV (RBC) [Entitic vol] 95.6 fL Normal 81.0-99.0 [facility] Comment on above: Performed By: #### C BC #### [facility] [address] [place] [address] Dr. Sandi Michelle MONO # 0.5 103/ul Normal 0.3-0.8 [facility] Comment on above: Performed By: #### C BC #### [facility] [address] [place] [address] Dr. Sandi Michelle Monocytes/100 WBC (Bld) 6.6 % Normal 1.7-12.0 [facility] Comment on above: Performed By: #### C BC #### [facility] [address] [place] [address] Dr. Sandi Michelle NEUT # 5.4 103/ul Normal 1.4-6.5 [facility] Comment on above: Performed By: #### C BC #### [facility] [address] [place] [address] Dr. Sandi Michelle Neutrophils/100 WBC (Bld) 68.6 % Normal 43.0-75.0 [facility] Comment on above: Performed By: #### C BC #### [facility] [address] [address] [address] Sandi Michelle Platelet mean volume (Bld) [Entitic vol] 10.1 fL Normal 9.5-13.5 [facility] Comment on above: Performed By: #### C BC #### [facility] [address] [address] [address] Sandi Michelle PLT 237 103/ul Normal 150-450 [facility] Comment on above: Performed By: #### C BC #### [facility] [address] [address] [address] Sandi Michelle RBC 3.88 106/ul Critically low 4.20-5.40 [facility] Comment on above: Performed By: #### C BC #### [facility] [address] [address] [address] Sandi Michelle WBC 7.9 103/ul Normal 4.0-11.0 [facility] Comment on above: Performed By: #### C BC #### [facility] [address] [address] [address] Sandi Michelle CULTURE URINEon 11-21-2021 CULTURE URINE Culture Observations : LIGHT GROWTH OF MIXED GENITAL MENDEZ. NO POTENTIAL PATHOGENS SEEN. Normal [facility] Comment on above: Performed By: #### U RCX #### [facility] [address] [address] [address] Sandi Michelle GLYCOHEMOGLOBIN A1Con 2021 ADA RECOMMENDATION SEE BELOW Normal [facility] Comment on above: Result Comment: ADA RECOMMENDED LIMIT 4.0 - 6.0 ADA THERAPEUTIC TARGET < 7.0 ACTION SUGGESTED > 7.0 Performed By: #### A 1C ####[facility] [address] [place] [address]Dr. Sandi Michelle Glucose [Mass/Vol] 103 mg/dL Normal [facility] Comment on above: Performed By: #### A 1C ####[facility] [address] [place], [place] [address]ZzDen Michelle HbA1c (Bld) [Mass fraction] 5.2 % Normal 4.5-6.2 [facility] Comment on above: Performed By: #### A 1C ####[facility] [address] [place], [place] [address]Dr. Sandi Michelle TYPE AND SCREENon 11-21-2021 TYPE AND SCREEN Negative Normal [facility] Comment on above: Performed By: #### T NS #### [facility] [phone] Sandi Michelle US PREG TVon 11-03-2021 [...] TIFF URIBE Date: 2021-11-03 07:19 Normal [facility] PREG QUANT HCGon 10-14-2021 HCG QUANT 469 mIU/mL Normal [facility] Comment on above: Performed By: #### P REGQNT #### [facility] [id number] Sandi Michelle HCG RANGE SEE BELOW Normal [facility] Comment on above: Result Comment: 5-50 0-1 WEEK 40-300 1-2 WEEKS 100-1,000 2-3 WEEKS 500-6,000 3-4 WEEKS 5,000-200,000 1-2 MONTHS 10,000-100,000 2-3 MONTHS 3,000-50,000 2ND TRIMESTER 1,000-50,000 3RD TRIMESTER Performed By: #### P REGQNT #### [facility] [address] [place], [place] [address] Dr[address] Sandi Michelle PREG QUANT HCGon 10-12-2021 HCG QUANT 184 mIU/mL Normal [facility] Comment on above: Performed By: #### C BC #### [facility] [address] [place], [place] [address] Dr[address] Sandi Michelle HCG RANGE SEE BELOW Normal [facility] Comment on above: Result Comment: 5-50 0-1 WEEK 40-300 1-2 WEEKS 100-1,000 2-3 WEEKS 500-6,000 3-4 WEEKS 5,000-200,000 1-2 MONTHS 10,000-100,000 2-3 MONTHS 3,000-50,000 2ND TRIMESTER 1,000-50,000 3RD TRIMESTER Performed By: #### C BC #### [facility] [address] [place], [place] [address] Dr. Sandi Michelle PROTEIN C FUNC ACTIVITYon Prt C Activity (Chromogenic) 130 % Normal [facility] Comment on above: Result Comment: Refe rence Range: 17 years and older: 73 - 180 Effective August 10, 2021 Prt C Activity, (Chromogenic) will be made non-orderable. This will not affect any profile that includes Prt C Activity (Chromogenic). [employer] offers 710854 Protein C Functional. For more information please contact your local [facility]. Performed By: #### P RCACT ####[facility] [address] [place], [place] [address]LoDr. Sandi Michelle FACTOR V LEIDEN MUTATION CIARAN LYSISon 07-27-2021 Factor V Leiden Comment Normal [facility] Comment on above: Result Comment: Resu lt: c.1601G>A (p.[id number]) - Not Detected . This result is not associated with an increased risk for venous thromboembolism. See Additional Clinical Information and Comments. Additional Clinical Information: Venous thromboembolism is a multifactorial disease influenced by genetic, environmental, and circumstantial risk factors. The c.1601G>A (p. [id number]) variant in the F5 gene, commonly referred [...] c.*97G>A variant and Factor V Leiden (PMID: 74102548). Additional risk factors include but are not [...] health care providers to discuss results at [phone] ([phone]). . Test Details: Variant Analyzed: c.1601G>A (p. Ykk751Zbz), referred to as Factor V Leiden . [...] developed and its performance characteristics determined by [employer]. It has not been cleared or approved by the Food and Drug Administration. . References: Masoud S, Hawa AK, Randy R, Moses WW, Luis A JH; ACMG Professional Practice and Guidelines Committee. Addendum: [place] [employer] consensus statement on factor V Leiden mutation testing. [employer]. 2020Sep 26. doi: 10.1038/j88401-636-21932-h. PMID: 10639778. . Miriam GAMING. Factor V Leiden Thrombophilia. 1998December 05 [Updated 2017Jul 28]. In: Jv MP, Delia HH, Ian RA, et al., editors. Jovita(Wale) [Internet]. [place] ([place]): [facility]; 2132-0816. Available from: https://www.ncbi.nlm.nih.gov/books/JJD3973/ . Jonh S, Hawa AK, Francisco Javier X, Leobardo B, Ash EB, Deysi P, Mari CS; [employer] Laboratory Telephone Maintenance Mechanic Committee. Venous thromboembolism laboratory testing (factor V Leiden and factor II c.*97G>A), 2018 update: a technical standard of the [place] [employer] (ACMG). [employer] 2018 Jun;20(12):6999-5932. doi: 10.1038/[id number]-s. Epub 2017Apr 28. PMID: 90698612. . Martha Guillen, PhD, FACMG Lindsay Jaquez, PhD, FACMG Pete Brown, PhD, FACMG Geronimo Mcdaniel, PhD, FACMG Norm Hays, PhD, FAC Maureen Mancilla, PhD, FAC Performed By: #### F VPCR ####[facility] [address] [place], [place] [address]HpDr. Sandi Michelle ANTITHROMBIN ACTIVITYon Antithrombin Activity 102 % Normal 75-135 [facility] Comment on above: Result Comment: Dire ct Xa inhibitor anticoagulants such as rivaroxaban, apixaban and edoxaban will lead to spuriously elevated antithrombin activity levels possibly masking a deficiency. Performed By: #### C BC #### [facility] [address] [place], [place] [address] Dr. Sandi Michelle B-2 GLYCOPROTEIN AB IGGon Beta-2 Glycoprotein I Ab, IgG <9 Normal 0-20 [facility] Comment on above: Result Comment: The reference interval reflects a 3SD or 99th percentile interval, which is thought to represent a potentially clinically significant result in accordance with the International Consensus Statement on the classification criteria for definitive antiphospholipid syndrome (APS). J Thromb Haem 2006;4:295-306. Performed By: #### B 2GPG ####[facility] [address] [place] [address]Dr. Sandi Michelle B2-GLYCOPROTEIN 1 AB IGMon 0 07-25-2021 Beta-2 Glycoprotein I Ab, IgM <9 Normal 0-32 [facility] Comment on above: Result Comment: The reference interval reflects a 3SD or 99th percentile interval, which is thought to represent a potentially clinically significant result in accordance with the International Consensus Statement on the classification criteria for definitive antiphospholipid syndrome (APS). J Thromb Haem 2006;4:295-306. Performed By: #### B GLYIGM ####[facility] [address] [place], [place] [address]Dr. Sandi Michelle LUPUS ANTICOAGULANT W/REFLEX on 07-24-2021 aPTT Coag (Bld) [Time] 30.9 s Normal 0.0-51.9 [facility] Comment on above: Performed By: #### L UPUSRF ####[facility] [address] [place], [place] [address]Dr. Sandi Michelle dRVVT 33.0 sec Normal 0.0-47.0 [facility] Comment on above: Performed By: #### L UPUSRF ####[facility] [address] [place], [place] [address]Dr. Sandi Michelle Interpretation Comment: Normal [facility] Comment on above: Result Comment: No l upus anticoagulant was detected. Performed By: #### L UPUSRF ####[facility] [address] [place] [address]Dr. Sandi Michelle PROTEIN S ANTIGENon 07-24-20 21 Protein S, Free 104 % Normal 61-136 [facility] Comment on above: Performed By: #### P RTSAG ####[facility] [address] [place] [address]Dr. Sandi Michelle Protein S, Total 90 % Normal 60-150 [facility] Comment on above: Result Comment: This test was developed and its performance characteristics determined by [employer]. It has not been cleared or approved by the Food and Drug Administration. Performed By: #### P RTSAG ####[facility] [id number] [place] [id number]. Sandi Michelle PROTEIN S, FUNCTIONALon 12-3 Protein S-Functional 107 % Normal 63-140 [facility] Comment on above: Result Comment: Prot ein S activity may be falsely increased (masking an abnormal, low result) in patients receiving direct Xa inhibitor (e.g., rivaroxaban, apixaban, edoxaban) or a direct thrombin inhibitor (e.g., dabigatran) anticoagulant treatment due to assay interference by these drugs. Performed By: #### C BC #### [facility] [address] [place] [address] Dr. Sandi Michelle ANTICARDIOLIPIN AB (JEANIE) IGG on 07-23-2021 Anticardiolipin Ab,IgG,Qn <9 Normal 0-14 [facility] Comment on above: Result Comment: Nega tive: <15 Indeterminate: 15 - 20 Low-Med Positive: >20 - 80 High Positive: >80 Performed By: #### C ARDLIP #### [facility] [address] [place] [address] Dr. Sandi Michelle ANTICARDIOLIPIN AB (JEANIE) IGM on 07-23-2021 Anticardiolipin Ab,IgM,Qn 12 MPL U/mL Normal 0-12 [facility] Comment on above: Result Comment: Nega tive: <13 Indeterminate: 13 - 20 Low-Med Positive: >20 - 80 High Positive: >80 Performed By: #### C ARDIGM ####[facility] [id number] [place] [id number]. Sandi Michelle Vital Signs Date Time Vital Sign Value Performing Clinician Bayron pate 01-21-2022 03:06-0400 Body weight 72.[address] MELINDA RAND [facility] Comment on above: Performed By: #### A FPMAT ####[facility] [id number] [place] [id number]. Sandi Michelle Clinical Note 06-04-2022 Note Date & Type Note Facility 06-04-2022 Note OPERATIVE NOTE OPERATION DATE: 06/04/2022 PROCEDURE: Primary low transverse section. PREOPERATIVE DIAGNOSIS: 1. Intrauterine at 37 5/7 weeks. 2. Breech presentation. POSTOPERATIVE DIAGNOSIS: 1. Intrauterine at 37 5/7 weeks. 2. Breech presentation. 3. 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 SURGEON: Melinda Rand GUIDE ESCORT: SCARLET Albert URINE OUTPUT: Yellow and clear. [...] and cut. Cord blood was obtained. The was handed off to awaiting team. The [...] the Recovery Room in stable condition. [facility] Summary Purpose Family History No Family History Records FoundNo Family History Records Found Advance Directives No Advanced Directives Records FoundNo Advanced Directives Records Found Additional Source Comments INFORMATION SOURCE (unrecogn ized section and content) DATE CREATED AUTHOR 06/14/2022 [facility] DATE CREATED AUTHOR AUTHOR'S ORGANIZ ATION 12/31/2023 [facility] FOR RECORDS PERTAINING TO PATIENTS WHO ARE [...] BE BASED ON THE PRIMARY CLINICAL RECORDS. [facility] [employer] provides no warranty or guarantee of the accuracy or completeness of information in this document.
--- NOTE | 2024-01-11 07:58 | FL_ITS ---
[address] [address] Patient Name: RUBÉN MACDONALD MRN: [id number] date: 1990 Sex: F Assigned Patient Location: LAB Current Patient Location: LAB Accession/Order Number: [id number] Exam Date: 01/11/2024 08:15 Report Date: 01/11/2024 09:55 At the request of: MELINDA FREDERICK Procedure: FL hysterosalpingography EXAMINATION: FL hysterosalpingography, FL Hysterosal cath placement HISTORY: Fallopian Tube Disorder, Polycystic Ovarian Syndrome COMPARISON: No relevant comparison available. TECHNIQUE: Informed consent was obtained. A sterile vaginal speculum was introduced and, following cleansing of the cervix, a balloon-tipped catheter was inserted into the endometrial cavity. The procedure was then completed in the usual manner with water-soluble contrast. Standard level fluoroscopic mode of operation utilized. FINDINGS: FALLOPIAN TUBES: Patent fallopian tubes bilaterally with no significant delay in spillage of contrast into the peritoneal cavity. Dilated distal end of right fallopian tube. Dilated proximal portion and distal end of left fallopian tube. ENDOMETRIAL CAVITY: No scarring, filling defects, or dilatation. OTHER: Negative. FL/FL hysterosalpingography IMPRESSION: 1. Patent fallopian tubes bilaterally with dilated segments of uncertain clinical significance as detailed above. Electronically authenticated by: TIFF URIBE Date: 01/11/2024 09:55
--- NOTE | 2024-01-11 07:58 | FL_ITS ---
[address] [address] Patient Name: RUBÉN MACDONALD MRN: [id number] date: 1990 Sex: F Assigned Patient Location: LAB Current Patient Location: LAB Accession/Order Number: [id number] Exam Date: 01/11/2024 08:15 Report Date: 01/11/2024 09:55 At the request of: MELINDA FREDERICK Procedure: FL Hysterosal cath placement EXAMINATION: FL hysterosalpingography, FL Hysterosal cath placement HISTORY: Fallopian Tube Disorder, Polycystic Ovarian Syndrome COMPARISON: No relevant comparison available. TECHNIQUE: Informed consent was obtained. A sterile vaginal speculum was introduced and, following cleansing of the cervix, a balloon-tipped catheter was inserted into the endometrial cavity. The procedure was then completed in the usual manner with water-soluble contrast. Standard level fluoroscopic mode of operation utilized. FINDINGS: FALLOPIAN TUBES: Patent fallopian tubes bilaterally with no significant delay in spillage of contrast into the peritoneal cavity. Dilated distal end of right fallopian tube. Dilated proximal portion and distal end of left fallopian tube. ENDOMETRIAL CAVITY: No scarring, filling defects, or dilatation. OTHER: Negative. FL/FL Hysterosal cath placement IMPRESSION: 1. Patent fallopian tubes bilaterally with dilated segments of uncertain clinical significance as detailed above. Electronically authenticated by: TIFF URIBE Date: 01/11/2024 09:55
[2024-01-11 08:13] LABS: HCG Quantitative <1 mIU/mL
--- NOTE | 2024-01-11 09:22 | SUR.PREOP ---
01/09/24 Pt instructed on procedure, date, time, and prep.
--- NOTE | 2024-01-11 09:28 | PC.NURSE ---
0905 Pt denies any abdominal cramping or change in vag bleeding after procedure.
== END 2024-01-12 08:45 | disposition home or self-care (01) ==
LOC: LAB 07:39
PROVIDERS: Radiology Diagnostic Radiology; PCP Obstetrics & Gynecology; Visit Provider Obstetrics & Gynecology
DX: N83.9 Noninflammatory disorder of ovary, fallopian tube and broad ligament, unspecified (principal); E28.2 Polycystic ovarian syndrome; N97.0 Female infertility associated with anovulation
CPT/HCPCS: 36415; 58340; 74740; 84702; Q9966

== ENCOUNTER 2024-02-24 08:40 | Outpatient (OUT) | payer OTHER, SELFPAY ==
--- OUTSIDE RECORDS SUMMARY | 2024-02-24 08:49 | XMS_ITS | CCD ---
Author Organization [facility] CliniSyvt Care Team Providers Care [employer] Co[employer] Supervisor Name Role Phone OTONIEL, DR LAWRENCE Admitting [...] LAWRENCE Consulting Unavailable SHAWN, SRIKANTH Consulting Unavailable OTOINEL, DR LAWRENCE Admitting Unavailable OTONIEL, DR LAWRENCE [...] Attending Unavailable TELLY, DR PENNINGTON Consulting Unavailable HAZEL, DR RIGO Medina Consulting Unavailable OTONIEL, DR LAWRENCE Consulting Unavailable OTONIEL, MELINDA Attending Unavailable OTONIEL, MELINDA Attending Unavailable Allergies Allergy Classification Reported Allergen(s) Allergy Type Date of Onset Reaction(s) Facility (2 sources) Acetaminophen / HYDROcodone Drug Allergy [facility] Repository Problems Active Problems Problem [...] 06-05-2022 BASO # 0.0 103/ul Normal 0.0-0.1 [facility] Comment on above: Performed By: #### C BC #### [facility] [address] [place] [address] Dr. Sandi Michelle Basophils/100 WBC (Bld) 0.2 % Normal 0.2-2.0 [facility] Comment on above: Performed By: #### C BC #### [facility] [address] [place] [address] Dr. Sandi Michelle EO # 0.0 103/ul Normal 0.0-0.7 [facility] Comment on above: Performed By: #### C BC #### [facility] [address] [place] [address] Dr. Sandi Michelle Eosinophils/100 WBC (Bld) 0.2 % Critically low 0.9-7.0 [facility] Comment on above: Performed By: #### C BC #### [facility] [address] [place] [address] Dr. Sandi Michelle Erythrocyte distribution width (RBC) [Ratio] 14.3 % Normal 11.0-15.0 [facility] Comment on above: Performed By: #### C BC #### [facility] [address] [place] [address] Dr. Sandi Michelle Hematocrit (Bld) [Volume fraction] 27.3 % Critically low 36.0-48.0 [facility] Comment on above: Performed By: #### C BC #### [facility] [address] [place] [address] Dr. Sandi Michelle Hemoglobin (Bld) [Mass/Vol] 9.3 g/dL Critically low 12.0-16.0 [facility] Comment on above: Result Comment: DELI VERY Performed By: #### C BC #### [facility] [address] [place] [address] Dr. Sandi Michelle IG # 0.14 10e3/ul Critically high 0.00-0.03 [facility] Comment on above: Performed By: #### C BC #### [facility] [address] [place] [address] Dr. Sandi Michelle IG % 1.1 % Critically high 0.0-0.5 [facility] Comment on above: Performed By: #### C BC #### [facility] [address] [place] [address] Dr. Sandi Michelle LYMPH # 1.6 103/ul Normal 1.2-3.8 [facility] Comment on above: Performed By: #### C BC #### [facility] [address] [place] [address] Dr. Sandi Michelle Lymphocytes/100 WBC (Bld) 12.1 % Critically low 20.5-60.0 [facility] Comment on above: Performed By: #### C BC #### [facility] [address] [place] [address] Dr. Sandi Michelle MANUAL DIFF REQ NO Normal [facility] Comment on above: Performed By: #### C BC #### [facility] [address] [place] [address] Dr. Sandi Michelle MCH (RBC) [Entitic mass] 31.8 pg Normal 26.7-34.0 [facility] Comment on above: Performed By: #### C BC #### [facility] [address] [place] [address] Dr. Sandi Michelle MCHC (RBC) [Mass/Vol] 34.1 g/dL Normal 29.9-35.2 [facility] Comment on above: Performed By: #### C BC #### [facility] [address] [place] [address] Dr. Sandi Michelle MCV (RBC) [Entitic vol] 93.5 fL Normal 81.0-99.0 [facility] Comment on above: Performed By: #### C BC #### [facility] [address] [address] [address] Sandi Michelle MONO # 0.9 103/ul Critically high 0.3-0.8 [facility] Comment on above: Performed By: #### C BC #### [facility] [address] [place] [address] Dr. Sandi Michelle Monocytes/100 WBC (Bld) 6.8 % Normal 1.7-12.0 [facility] Comment on above: Performed By: #### C BC #### [facility] [address] [place] [address] Dr. Sandi Michelle NEUT # 10.3 103/ul Critically high 1.4-6.5 [facility] Comment on above: Performed By: #### C BC #### [facility] [address] [place] [address] Dr. Sandi Michelle Neutrophils/100 WBC (Bld) 79.6 % Critically high 43.0-75.0 [facility] Comment on above: Performed By: #### C BC #### [facility] [address] [place] [address] Dr. Sandi Michelle Platelet mean volume (Bld) [Entitic vol] 9.8 fL Normal 9.5-13.5 [facility] Comment on above: Performed By: #### C BC #### [facility] [address] [place] [address] Dr. Sandi Michelle PLT 138 103/ul Critically low 150-450 [facility] Comment on above: Performed By: #### C BC #### [facility] [address] [place] [address] Dr. Sandi Michelle RBC 2.92 106/ul Critically low 4.20-5.40 [facility] Comment on above: Performed By: #### C BC #### [facility] [address] [place] [address] Dr. Sandi Michelle WBC 12.9 103/ul Critically high 4.0-11.0 [facility] Comment on above: Performed By: #### C BC #### [facility] [address] [place] [address] Dr. Sandi Michelle CBC AUTO DIFFon 06-04-2022 BASO # 0.0 103/ul Normal 0.0-0.1 [facility] Comment on above: Performed By: #### C BC #### [facility] [address] [place] [address] Dr. Sandi Michelle Basophils/100 WBC (Bld) 0.3 % Normal 0.2-2.0 [facility] Comment on above: Performed By: #### C BC #### [facility] [address] [place] [address] Dr. Sandi Michelle EO # 0.0 103/ul Normal 0.0-0.7 [facility] Comment on above: Performed By: #### C BC #### [facility] [address] [place] [address] Dr. Sandi Michelle Eosinophils/100 WBC (Bld) 0.1 % Critically low 0.9-7.0 [facility] Comment on above: Performed By: #### C BC #### [facility] [address] [place] [address] Dr. Sandi Michelle Erythrocyte distribution width (RBC) [Ratio] 14.4 % Normal 11.0-15.0 [facility] Comment on above: Performed By: #### C BC #### [facility] [address] [place] [address] Dr. Sandi Michelle Hematocrit (Bld) [Volume fraction] 37.2 % Normal 36.0-48.0 [facility] Comment on above: Performed By: #### C BC #### [facility] [address] [place] [address] Dr. Sandi Michelle Hemoglobin (Bld) [Mass/Vol] 12.9 g/dL Normal 12.0-16.0 [facility] Comment on above: Performed By: #### C BC #### [facility] [address] [place] [address] Dr. Sandi Michelle IG # 0.23 10e3/ul Critically high 0.00-0.03 [facility] Comment on above: Performed By: #### C BC #### [facility] [address] [place] [address] Dr. Sandi Michelle IG % 1.6 % Critically high 0.0-0.5 [facility] Comment on above: Performed By: #### C BC #### [facility] [address] [place] [address] Dr. Sandi Michelle LYMPH # 2.3 103/ul Normal 1.2-3.8 [facility] Comment on above: Performed By: #### C BC #### [facility] [address] [place] [address] Dr. Sandi Michelle Lymphocytes/100 WBC (Bld) 16.0 % Critically low 20.5-60.0 [facility] Comment on above: Performed By: #### C BC #### [facility] [address] [place] [address] Dr. Sandi Michelle MANUAL DIFF REQ NO Normal [facility] Comment on above: Performed By: #### C BC #### [facility] [address] [place] [address] Dr. Sandi Michelle MCH (RBC) [Entitic mass] 32.3 pg Normal 26.7-34.0 [facility] Comment on above: Performed By: #### C BC #### [facility] [address] [place] [address] Dr. Sandi Michelle MCHC (RBC) [Mass/Vol] 34.7 g/dL Normal 29.9-35.2 [facility] Comment on above: Performed By: #### C BC #### [facility] [address] [place] [address] Dr. Sandi Michelle MCV (RBC) [Entitic vol] 93.0 fL Normal 81.0-99.0 [facility] Comment on above: Performed By: #### C BC #### [facility] [address] [place] [address] Dr. Sandi Michelle MONO # 0.8 103/ul Normal 0.3-0.8 [facility] Comment on above: Performed By: #### C BC #### [facility] [address] [place] [address] Dr. Sandi Michelle Monocytes/100 WBC (Bld) 5.8 % Normal 1.7-12.0 [facility] Comment on above: Performed By: #### C BC #### [facility] [address] [place] [address] Dr. Sandi Michelle NEUT # 10.7 103/ul Critically high 1.4-6.5 [facility] Comment on above: Performed By: #### C BC #### [facility] [address] [place] [address] Dr. Sandi Michelle Neutrophils/100 WBC (Bld) 76.2 % Critically high 43.0-75.0 [facility] Comment on above: Performed By: #### C BC #### [facility] [address] [place] [address] Dr. Sandi Michelle Platelet mean volume (Bld) [Entitic vol] 10.9 fL Normal 9.5-13.5 [facility] Comment on above: Performed By: #### C BC #### [facility] [address] [place] [address] Dr. Sandi Michelle PLT 194 103/ul Normal 150-450 [facility] Comment on above: Performed By: #### C BC #### [facility] [address] [place], [place] [id number] Dr. Sandi Michelle RBC 4.00 106/ul Critically low 4.20-5.40 [facility] Comment on above: Performed By: #### C BC #### [facility] [address] [place] [address] Dr. Sandi Michelle WBC 14.0 103/ul Critically high 4.0-11.0 [facility] Comment on above: Performed By: #### C BC #### [facility] [address] [place], [place] [address] Dr. Sandi Michelle Covid-19 PCR ([facility])on 05-25 SARS-CoV-2 (COVID-19) RNA ALETHEA+probe Ql (Unsp spec) Not detected Normal NOT DETECTED [facility] Comment on above: Result Comment: [...] for this test is supported by the [place] of Health and Human Service's declaration that [...] be used). Performed By: #### C VDTBH ####[facility] [address] [place], [place] [address]XsDen Michelle DRUG SCREEN RAPID (URINE)on 06-04-2022 AMP Negative Normal NEGATIVE [facility] Comment on above: Performed By: #### D RUGRPD ####[facility] [address] [id number] Michelle BAR Negative Normal NEGATIVE [facility] Comment on above: Performed By: #### D RUGRPD ####[facility] [address] [id number] Michelle BUP Negative Normal NEGATIVE [facility] Comment on above: Performed By: #### D RUGRPD ####[facility] [address] [id number]. Sandi Michelle BZO Negative Normal NEGATIVE [facility] Comment on above: Performed By: #### D RUGRPD ####[facility] [address] [address]Dr. Sandi Michelle NINO Negative Normal NEGATIVE [facility] Comment on above: Performed By: #### D RUGRPD ####[facility] [address] [place], [place] [id number]. Sandi Michelle CUT-OFFS SEE BELOW Normal [facility] Comment on above: Result Comment: [...] 300 ng/mL Performed By: #### D RUGRPD ####[facility] [address] [place], [place] [address]Dr. Sandi Michelle DRUG CUT HEADER DRUG CLASS TEST SYSTEM CUT-OFF CONCENTRATIONS ARE FOLLOWS: Normal [facility] Comment on above: Performed By: #### D RUGRPD ####[facility] [address] [place], [place] [address]Dr. Sandi Michelle mAMP Negative Normal NEGATIVE [facility] Comment on above: Performed By: #### D RUGRPD ####[facility] [address] [place], [place] [address]Dr. Sandi Michelle MTD Negative Normal NEGATIVE [facility] Comment on above: Performed By: #### D RUGRPD ####[facility] [address] [place], [place] [address]Dr. Sandi Michelle OPI Negative Normal NEGATIVE [facility] Comment on above: Performed By: #### D RUGRPD ####[facility] [address] [place], [place] [address]Dr. Sandi Michelle OXY Negative Normal NEGATIVE [facility] Comment on above: Performed By: #### D RUGRPD ####[facility] [address] [address]Dr. Sandi Michelle PCP Negative Normal NEGATIVE [facility] Comment on above: Performed By: #### D RUGRPD ####[facility] [address] [address]Dr. Sandi Michelle PPX Negative Normal NEGATIVE [facility] Comment on above: Performed By: #### D RUGRPD ####[facility] [address] [address]Dr. Sandi Michelle TCA Negative Normal NEGATIVE [facility] Comment on above: Performed By: #### D RUGRPD ####[facility] [address] [address]Dr. Sandi Michelle THC Negative Normal NEGATIVE [facility] Comment on above: Performed By: #### D RUGRPD ####[facility] [address] [address]Dr. Sandi Michelle TYPE AND SCREENon 06-04-2022 TYPE AND SCREEN Negative Normal [facility] Comment on above: Performed By: #### T NS ####[facility] [address] [place], [place] [address]Dr. Sandi Michelle US PREG BIOPHY W NON [...] RIGO FISCHER Date: 2022-05-30 08:30 Normal [facility] GROUP B STREP CULTUREon S. agalactiae Ag (Unsp spec) Culture Observations: NEGATIVE FOR GROUP B STREPTOCOCCUS. Normal [facility] Comment on above: Performed By: #### G BSCX ####[facility] [address] [place], [place] [address]CrDen Michelle US PREG BIOPHY W NON STRESSo [...] by: RIGO FISCHER Date: 2022-05-23 09:41 Normal [facility] US PREG BIOPHY W NON STRESSo n [...] by: RIGO FISCHER Date: 2022-05-16 16:10 Normal [facility] US PREG GROWTHon 05-11-2022 US PREG GROWTH EXAMINATION: US PREG GROWTH, US PREG CERVICAL LENGTH HISTORY: Excessive growth affecting management of mother COMPARISON: Ultrasound growth 04/27/2022 FINDINGS: Heart Rate: 137.8 bpm (accession [id number]), 167.3 bpm (accession [id number]) Number: 1.0 Position: BREECH Amniotic Fluid Volume: [...] by: TIFF URIBE Date: 2022-05-11 19:19 Normal [facility] US PREG GROWTHon 04-27-2022 US PREG [...] by: TIFF URIBE Date: 2022-04-27 20:51 Normal [facility] GLUCOSE - 1HRon 03-15-2022 Glucose [Mass/Vol] 137 mg/dL Critically high 74-[address] [facility] Comment on above: Performed By: #### C BC #### [facility] [address] [place] [address] Dr. Sandi Michelle HEMOGRAM AND PLATELon 2021 Hematocrit (Bld) [Volume fraction] 34.9 % Critically low 36.0-48.0 [facility] Comment on above: Performed By: #### C BC #### [facility] [address] [place] [address] Dr. Sandi Michelle Hemoglobin (Bld) [Mass/Vol] 11.5 g/dL Critically low 12.0-16.0 [facility] Comment on above: Performed By: #### C BC #### [facility] [address] [place] [address] Dr. Sandi Michelle MCH (RBC) [Entitic mass] 31.8 pg Normal 26.7-34.0 [facility] Comment on above: Performed By: #### C BC #### [facility] [address] [place] [address] Dr. Sandi Michelle MCHC (RBC) [Mass/Vol] 33.0 g/dL Normal 29.9-35.2 [facility] Comment on above: Performed By: #### C BC #### [facility] [address] [place] [address] Dr. Sandi Michelle MCV (RBC) [Entitic vol] 96.4 fL Normal 81.0-99.0 [facility] Comment on above: Performed By: #### C BC #### [facility] [address] [place] [address] Dr. Sandi Michelle PLT 225 103/ul Normal 150-450 [facility] Comment on above: Performed By: #### C BC #### [facility] [address] [place] [address] Dr. Sandi Michelle RBC 3.62 106/ul Critically low 4.20-5.40 [facility] Comment on above: Performed By: #### C BC #### [facility] [address] [address] [address] Sandi Michelle WBC 12.9 103/ul Critically high 4.0-11.0 [facility] Comment on above: Performed By: #### C BC #### [facility] [address] [id number] Sandi Michelle CHLAMYDIA/GONOCOCCUS ALETHEA (SW AB/URINE/PAPon 02-04-2022 Chlamydia trachomatis, ALETHEA Negative Normal Negative [facility] Comment on above: Performed By: #### C T/NGNA #### [facility] [address] [id number] [address] Sandi Michelle Neisseria gonorrhoeae, ALETHEA Negative Normal Negative [facility] Comment on above: Performed By: #### C T/NGNA #### [facility] [address] [address] [address] Sandi Michelle PAP ACOG PANEL 2: 30 to 65on 02-04-2022 . . Normal [facility] Comment on above: Result Comment: Perf ormed at: WB Performed By: #### [id number] ####[facility] [address] [address]Dr. Sandi Michelle Age Gdln ACOG Testing 30-65 Normal [facility] Comment on above: Performed By: #### 4 [id number] ####[facility] [address] [address]Dr. Sandi Michelle DIAGNOSIS: Comment Normal [facility] Comment on above: Result Comment: NEGA TIVE FOR INTRAEPITHELIAL LESION OR MALIGNANCY. Performed at: WB Performed By: #### [id number] ####[facility] [address] [address]Dr. Sandi Michelle HPV Aptima Negative Normal Negative [facility] Comment on above: Result Comment: This nucleic acid amplification test detects fourteen high-risk HPV types (16,18,31,33,35,39,45,51,52,56,58,59,66,68) without differentiation. Performed at: =G Performed By: #### 4 [id number] ####[facility] [address] [address]Dr. Sandi Michelle Methodology: Comment Normal [facility] Comment on above: Result Comment: This liquid based ThinPrep(R) pap test was screened with the use of an image guided system. Performed at: WB Performed By: #### [id number] ####[facility] [address] [place], [place] [address]DrDen Michelle Note: Comment Normal [facility] Comment on above: Result Comment: The Pap smear is a screening test designed to aid in the detection of premalignant and malignant conditions of the uterine cervix. It is not a diagnostic procedure and should not be used as the sole means of detecting cervical cancer. Both false-positive and false-negative reports do occur. . Performed at: WB Performed By: #### 4 [id number] ####[facility] [address] [place], [place] [address]Dr. Sandi Michelle Performed by: Comment Normal [facility] Comment on above: Result Comment: Vikas Mcclellan, Electronic Bench Technician (ASCP) Performed at: WB Performed By: #### [id number] ####[facility] [address] [place], [place] [address]Dr. Sandi Michelle Specimen adequacy: Comment Normal [facility] Comment on above: Result Comment: Sati sfactory for evaluation. No endocervical component is identified. Performed at: WB Performed By: #### [id number] ####[facility] [address] [place], [place] [address]Dr. Sandi Michelle VAGINITIS/VAGINOSIS DNA PROB Nicholas 02-03-2022 Karol species Negative Normal Negative [facility] Comment on above: Performed By: #### V AGINT ####[facility] [address] [address]Dr. Sandi Michelle Gardnerella vaginalis Negative Normal Negative [facility] Comment on above: Performed By: #### V AGINT ####[facility] [address] [address]Dr. Sandi Michelle Trichomonas vaginalis Negative Normal Negative [facility] Comment on above: Performed By: #### V AGINT ####[facility] [address] [place], [place] [address]IdDen Michelle US PREG ANATOMY SINGLEon US PREG [...] RIGO FISCHER Date: 2022-02-01 19:32 Normal [facility] AFP MATERNAL FOR SPINA BIFID Aon 01-21-2022 AFP MoM 1.24 Normal [facility] Comment on above: Performed By: #### A FPMAT ####[facility] [address] [place], [place] [address]XcDen Michelle AFP Value 55.2 ng/mL Normal [facility] Comment on above: Performed By: #### A FPMAT ####[facility] [address] [place] [id number]. Sandi Michelle AFP, Serum for Spina Bifida Report Normal [facility] Comment on above: Performed By: #### A FPMAT ####[facility] [address] [place] [id number]. Sandi Michelle Comment Comment Normal [facility] Comment on above: Result Comment: Iesha Sullivan, Ph.D., [facility] Director . References: Available Upon Request. . Multiples Of Median Cutoffs For AFP Elevations Bhandari 2.5 Black 2.8 IDD 2.0 Twins 4.5 Abbreviation Definitions IDD - Insulin Dep Diabetes OSBR - Open Spina Bifida Risk . For further inquiries contact [employer] [facility] at [phone]. . This test was developed and its performance characteristics determined by [employer]. It has not been cleared or approved by the Food and Drug Administration. Performed By: #### A FPMAT ####[facility] [address] [place] [address]Dr. Sandi Michelle Gest Age Collection Date 18.1 weeks Normal [facility] Comment on above: Performed By: #### A FPMAT ####[facility] [address] [place] [address]Dr. Sandi Michelle Gestat, Age Based on JOSE Normal [facility] Comment on above: Result Comment: 05/26 Recalculations are not recommended when gestational dating by LMP and ultrasound are within 10 days. Performed By: #### A FPMAT ####[facility] [address] [place] [address]Dr. Sandi Michelle Insulin Dep Diabetes Comment Normal [facility] Comment on above: Result Comment: Not provided. . Performed By: #### A FPMAT ####[facility] [address] [place] [address]Dr. Sandi Michelle Interpretation Comment Normal [facility] Comment on above: Result Comment: Inte [...] Customer Services to discuss available options. The [employer] recommends amniocentesis be offered to women age 35 and older. Performed By: #### A FPMAT ####[facility] [address] [place] [id number]. Sandi Michelle [age] Normal [facility] Comment on above: Performed By: #### A FPMAT ####[facility] [address] [place] [address]Dr. Sandi Michelle Multiple Gestation No Normal [facility] Comment on above: Performed By: #### A FPMAT ####[facility] [address] [place], [place] [id number]. Sandi Michelle OSBR Risk 1 [place] 5748 Normal [facility] Comment on above: Performed By: #### A FPMAT ####[facility] [address] [place] [id number]. Sandi Michelle PDF . Normal [facility] Comment on above: Performed By: #### A FPMAT ####[facility] [address] [place] [id number]. Sandi Michelle Race Normal [facility] Comment on above: Performed By: #### A FPMAT ####[facility] [address] [place], [place] [address]Dr. Sandi Michelle Test Results: Negative Normal [facility] Comment on above: Performed By: #### A FPMAT ####[facility] [address] [place], [place] [address]Dr. Sandi Michelle HEP B SURFACE ANTIGEN SCREEN on 11-22-2021 HBsAg Screen Negative Normal Negative [facility] Comment on above: Performed By: #### H BSANS ####[facility] [address] [place], [place] [address]Dr. Sandi Michelle HEPATITIS C VIRUS AB W/ REFL EX QUANTon 11-22-2021 HCV AB 0.1 s/co ratio Normal 0.0-0.9 [facility] Comment on above: Performed By: #### C BC #### [facility] [address] [address] [address] Sandi Michelle Interpretation: Comment Normal [facility] Comment on above: Result Comment: Nega tive Not infected with HCV, unless recent infection is suspected or other evidence exists to indicate HCV infection. Performed By: #### C BC #### [facility] [address] [address] [address] Sandi Michelle HIV 1 AND 2 WITH REFLEXon HIV Screen 4th Generation wRfx Non-Reactive Normal Non Reactive [facility] Comment on above: Result Comment: HIV Negative HIV-1/HIV-2 antibodies and HIV-1 p24 antigen were NOT detected. There is no laboratory evidence of HIV infection. Performed By: #### H IV12 ####[facility] [address] [place] [address]Dr. Sandi Michelle RPR QUANTon 11-22-2021 Rapid Plasma Reagin, Quant Non-Reactive Normal NonRea<1:1 [facility] Comment on above: Result Comment: Mary kyle Note: This test does not meet current guidelines for screening and diagnosis of syphilis. This test is intended for following treatment response in patients being treated for syphilis infection. To screen for syphilis infection, a reflex cascade that includes both RPR and a treponema-specific assay should be utilized, such as Treponema pallidum (Syphilis) Screening [place] (586790) or Rapid Plasma Reagin (RPR) Test With Reflex to Quantitative RPR and Confirmatory Treponema pallidum Antibodies (227576). Performed By: #### C BC #### [facility] [address] [address] [address] Sandi Michelle RUBELLA AB IGGon 11-22-2021 Rubella Antibodies, IgG 9.33 index Normal Immune >0.99 [facility] Comment on above: Result Comment: Non- immune <0.90 Equivocal 0.90 - 0.99 Immune >0.99 Performed By: #### C BC #### [facility] [address] [place] [address] Dr. Sandi Michelle CBC AUTO DIFFon 11-21-2021 BASO # 0.0 103/ul Normal 0.0-0.1 [facility] Comment on above: Performed By: #### C BC #### [facility] [address] [place] [address] Dr. Sandi Michelle Basophils/100 WBC (Bld) 0.4 % Normal 0.2-2.0 [facility] Comment on above: Performed By: #### C BC #### [facility] [address] [place] [address] Dr. Sandi Michelle EO # 0.1 103/ul Normal 0.0-0.7 [facility] Comment on above: Performed By: #### C BC #### [facility] [address] [place] [address] Dr. Sandi Michelle Eosinophils/100 WBC (Bld) 0.6 % Critically low 0.9-7.0 [facility] Comment on above: Performed By: #### C BC #### [facility] [address] [place] [address] Dr. Sandi Michelle Erythrocyte distribution width (RBC) [Ratio] 11.9 % Normal 11.0-15.0 [facility] Comment on above: Performed By: #### C BC #### [facility] [address] [place] [address] Dr. Sandi Michelle Hematocrit (Bld) [Volume fraction] 37.1 % Normal 36.0-48.0 [facility] Comment on above: Performed By: #### C BC #### [facility] [address] [place] [address] Dr. Sandi Michelle Hemoglobin (Bld) [Mass/Vol] 12.2 g/dL Normal 12.0-16.0 [facility] Comment on above: Performed By: #### C BC #### [facility] [address] [place] [address] Dr. Sandi Michelle IG # 0.03 10e3/ul Normal 0.00-0.03 [facility] Comment on above: Performed By: #### C BC #### [facility] [address] [place] [address] Dr. Sandi Michelle IG % 0.4 % Normal 0.0-0.5 [facility] Comment on above: Performed By: #### C BC #### [facility] [address] [place] [address] Dr. Sandi Michelle LYMPH # 1.8 103/ul Normal 1.2-3.8 [facility] Comment on above: Performed By: #### C BC #### [facility] [address] [place] [address] Dr. Sandi Michelle Lymphocytes/100 WBC (Bld) 23.4 % Normal 20.5-60.0 [facility] Comment on above: Performed By: #### C BC #### [facility] [address] [place] [address] Dr. Sandi Michelle MANUAL DIFF REQ NO Normal [facility] Comment on above: Performed By: #### C BC #### [facility] [address] [place] [address] Dr. Sandi Michelle MCH (RBC) [Entitic mass] 31.4 pg Normal 26.7-34.0 [facility] Comment on above: Performed By: #### C BC #### [facility] [address] [place] [address] Dr. Sandi Michelle MCHC (RBC) [Mass/Vol] 32.9 g/dL Normal 29.9-35.2 [facility] Comment on above: Performed By: #### C BC #### [facility] [address] [place] [address] Dr. Sandi Michelle MCV (RBC) [Entitic vol] 95.6 fL Normal 81.0-99.0 [facility] Comment on above: Performed By: #### C BC #### [facility] [address] [place] [address] Dr. Sandi Michelle MONO # 0.5 103/ul Normal 0.3-0.8 [facility] Comment on above: Performed By: #### C BC #### [facility] [address] [place] [address] Dr. Sandi Michelle Monocytes/100 WBC (Bld) 6.6 % Normal 1.7-12.0 [facility] Comment on above: Performed By: #### C BC #### [facility] [address] [place] [address] Dr. Sandi Michelle NEUT # 5.4 103/ul Normal 1.4-6.5 [facility] Comment on above: Performed By: #### C BC #### [facility] [address] [place] [address] Dr. Sandi Michelle Neutrophils/100 WBC (Bld) 68.6 % Normal 43.0-75.0 [facility] Comment on above: Performed By: #### C BC #### [facility] [address] [place] [address] Dr. Sandi Michelle Platelet mean volume (Bld) [Entitic vol] 10.1 fL Normal 9.5-13.5 [facility] Comment on above: Performed By: #### C BC #### [facility] [address] [place] [address] Dr. Sandi Michelle PLT 237 103/ul Normal 150-450 [facility] Comment on above: Performed By: #### C BC #### [facility] [address] [place] [address] Dr. Sandi Michelle RBC 3.88 106/ul Critically low 4.20-5.40 [facility] Comment on above: Performed By: #### C BC #### [facility] [address] [place] [address] Dr. Sandi Michelle WBC 7.9 103/ul Normal 4.0-11.0 [facility] Comment on above: Performed By: #### C BC #### [facility] [address] [place], [place] [id number] Dr. Sandi Michelle CULTURE URINEon 11-21-2021 CULTURE URINE Culture Observations : LIGHT GROWTH OF MIXED GENITAL MENDEZ. NO POTENTIAL PATHOGENS SEEN. Normal [facility] Comment on above: Performed By: #### U RCX #### [facility] [address] [place] [address] Dr. Sandi Michelle GLYCOHEMOGLOBIN A1Con 2021 ADA RECOMMENDATION SEE BELOW Normal [facility] Comment on above: Result Comment: ADA RECOMMENDED LIMIT 4.0 - 6.0 ADA THERAPEUTIC TARGET < 7.0 ACTION SUGGESTED > 7.0 Performed By: #### A 1C ####[facility] [address] [place] [address]Dr. Sandi Michelle Glucose [Mass/Vol] 103 mg/dL Normal [facility] Comment on above: Performed By: #### A 1C ####[facility] [address] [place] [address]Dr. Sandi Michelle HbA1c (Bld) [Mass fraction] 5.2 % Normal 4.5-6.2 [facility] Comment on above: Performed By: #### A 1C ####[facility] [address] [place] [address]Dr. Sandi Michelle TYPE AND SCREENon 11-21-2021 TYPE AND SCREEN Negative Normal [facility] Comment on above: Performed By: #### T NS #### [facility] [address] [address] [address] Sandi Michelle US PREG TVon 11-03-2021 [...] TIFF URIBE Date: 2021-11-03 07:19 Normal [facility] PREG QUANT HCGon 10-14-2021 HCG QUANT 469 mIU/mL Normal [facility] Comment on above: Performed By: #### P REGQNT #### [facility] [address] [place], [place] [address] Dr. Sandi Michelle HCG RANGE SEE BELOW Normal [facility] Comment on above: Result Comment: 5-50 0-1 WEEK 40-300 1-2 WEEKS 100-1,000 2-3 WEEKS 500-6,000 3-4 WEEKS 5,000-200,000 1-2 MONTHS 10,000-100,000 2-3 MONTHS 3,000-50,000 2ND TRIMESTER 1,000-50,000 3RD TRIMESTER Performed By: #### P REGQNT #### [facility] [address] [place], [place] [address] Dr. Sandi Michelle PREG QUANT HCGon 10-12-2021 HCG QUANT 184 mIU/mL Normal [facility] Comment on above: Performed By: #### C BC #### [facility] [address] [place], [place] [address] Dr. Sandi Michelle HCG RANGE SEE BELOW Normal [facility] Comment on above: Result Comment: 5-50 0-1 WEEK 40-300 1-2 WEEKS 100-1,000 2-3 WEEKS 500-6,000 3-4 WEEKS 5,000-200,000 1-2 MONTHS 10,000-100,000 2-3 MONTHS 3,000-50,000 2ND TRIMESTER 1,000-50,000 3RD TRIMESTER Performed By: #### C BC #### [facility] [address] [place], [place] [address] Dr. Sandi Michelle PROTEIN C FUNC ACTIVITYon Prt C Activity (Chromogenic) 130 % Normal [facility] Comment on above: Result Comment: Refe rence Range: 17 years and older: 73 - 180 Effective August 10, 2021 Prt C Activity, (Chromogenic) will be made non-orderable. This will not affect any profile that includes Prt C Activity (Chromogenic). [facility] offers [id number] Protein C Functional. For more information please contact your local [facility] Board Catcher. Performed By: #### P RCACT ####[facility] [address] [place], [place] [address]EoDr. Sandi Michelle FACTOR V LEIDEN MUTATION CIARAN LYSISon 07-27-2021 Factor V Leiden Comment Normal [facility] Comment on above: Result Comment: Resu lt: c.1601G>A (p.Hlj346Eqo) - Not Detected . This result is not associated with an increased risk for venous thromboembolism. See Additional Clinical Information and Comments. Additional Clinical Information: Venous thromboembolism is a multifactorial disease influenced by genetic, environmental, and circumstantial risk factors. The c.1601G>A (p. Kcd591Pak) variant in the F5 gene, commonly referred [...] c.*97G>A variant and Factor V Leiden (PMID: 55269104). Additional risk factors include but are not [...] health care providers to discuss results at [phone]). . Test Details: Variant Analyzed: c.1601G>A (p. Hot219Apc), referred to as Factor V Leiden . [...] developed and its performance characteristics determined by [employer]. It has not been cleared or approved by the Food and Drug Administration. . References: Masoud Galloway, Hawa GUTIÉRREZ, Randy R, Moses WW, Luis A JH; ACMG Professional Practice and Guidelines Committee. Addendum: [place] [employer] consensus statement on factor V Leiden mutation testing. [place] [employer]. 2020Sep 26. doi: 10.1038/k59408-155-15840-t. PMID: 73384409. . Miriam GAMING. Factor V Leiden Thrombophilia. 1998December 05 [Updated 2017Jul 28]. In: Jv MP, Delia HH, Ian RA, et al., editors. Jovita(R) [Internet]. [place] ([place]): [facility]; 6324-8927. Available from: https://www.ncbi.nlm.nih.gov/books/MJL6222/ . Jonh S, Hawa GUTIÉRREZ, Francisco Javier X, Leobardo B, Ash EB, Deysi P, Mari CS; [employer] Laboratory Sticker Hand Committee. Venous thromboembolism laboratory testing (factor V Leiden and factor II c.*97G>A), 2018 update: a technical standard of the [place] [employer] (ACMG). [employer]. 2018 Jun;20(12):5998-7786. doi: 10.1038/y65714-126-4959-e. Epub 2017Apr 28. PMID: 59737848. . Martha Guillen, PhD, FAC Lindsay Jaquez, PhD, FACMG Pete Brown, PhD, FACMG Geronimo Mcdaniel, PhD, FACMG Norm Hays, PhD, FAC Maureen Mancilla, PhD, [facility] Performed By: #### F CR ####[facility] [address] [place], [place] [address]Av. Sandi Michelle ANTITHROMBIN ACTIVITYon 01-0 Antithrombin Activity 102 % Normal 75-135 [facility] Comment on above: Result Comment: Dire ct Xa inhibitor anticoagulants such as rivaroxaban, apixaban and edoxaban will lead to spuriously elevated antithrombin activity levels possibly masking a deficiency. Performed By: #### C BC #### [facility] [address] [address] [address] Sandi Michelle B-2 GLYCOPROTEIN AB IGGon Beta-2 Glycoprotein I Ab, IgG <9 Normal 0-20 [facility] Comment on above: Result Comment: The reference interval reflects a 3SD or 99th percentile interval, which is thought to represent a potentially clinically significant result in accordance with the International Consensus Statement on the classification criteria for definitive antiphospholipid syndrome (APS). J Thromb Haem 2006;4:295-306. Performed By: #### B 2GPG ####[facility] [address] [place] [address]Dr. Sandi Michelle B2-GLYCOPROTEIN 1 AB IGMon 0 07-25-2021 Beta-2 Glycoprotein I Ab, IgM <9 Normal 0-32 [facility] Comment on above: Result Comment: The reference interval reflects a 3SD or 99th percentile interval, which is thought to represent a potentially clinically significant result in accordance with the International Consensus Statement on the classification criteria for definitive antiphospholipid syndrome (APS). J Thromb Haem 2006;4:295-306. Performed By: #### B GLYIGM ####[facility] [address] [place] [address]Dr. Sandi Michelle LUPUS ANTICOAGULANT W/REFLEX on 07-24-2021 aPTT Coag (Bld) [Time] 30.9 s Normal 0.0-51.9 [facility] Comment on above: Performed By: #### L UPUSRF ####[facility] [address] [place] [address]Dr. Sandi Michelle dRVVT 33.0 sec Normal 0.0-47.0 [facility] Comment on above: Performed By: #### L UPUSRF ####[facility] [address] [place] [address]Dr. Sandi Michelle Interpretation Comment: Normal [facility] Comment on above: Result Comment: No l upus anticoagulant was detected. Performed By: #### L UPUSRF ####[facility] [address] [place] [id number]. Sanjuanitasonia Miguel Angel PROTEIN S ANTIGENon 07-24-20 21 Protein S, Free 104 % Normal 61-136 [facility] Comment on above: Performed By: #### P RTSAG ####[facility] [address] [place] [address]Dr. Sandi Michelle Protein S, Total 90 % Normal 60-150 [facility] Comment on above: Result Comment: This test was developed and its performance characteristics determined by [employer]. It has not been cleared or approved by the Food and Drug Administration. Performed By: #### P RTSAG ####[facility] [address] [place] [address]Dr. Sandi Michelle PROTEIN S, FUNCTIONALon 12- Protein S-Functional 107 % Normal 63-140 [facility] Comment on above: Result Comment: Prot ein S activity may be falsely increased (masking an abnormal, low result) in patients receiving direct Xa inhibitor (e.g., rivaroxaban, apixaban, edoxaban) or a direct thrombin inhibitor (e.g., dabigatran) anticoagulant treatment due to assay interference by these drugs. Performed By: #### C BC #### [facility] [address] [place] [address] Dr. Sandi Michelle ANTICARDIOLIPIN AB (JEANIE) IGG on 07-23-2021 Anticardiolipin Ab,IgG,Qn <9 Normal 0-14 [facility] Comment on above: Result Comment: Nega tive: <15 Indeterminate: 15 - 20 Low-Med Positive: >20 - 80 High Positive: >80 Performed By: #### C ARDLIP #### [facility] [address] [address] [address] Sandi Michelle ANTICARDIOLIPIN AB (JEANIE) IGM on 07-23-2021 Anticardiolipin Ab,IgM,Qn 12 MPL U/mL Normal 0-12 [facility] Comment on above: Result Comment: Nega tive: <13 Indeterminate: 13 - 20 Low-Med Positive: >20 - 80 High Positive: >80 Performed By: #### C ARDIGM ####[facility] [address] [place], [place] [address]Tw. Sandi Michelle Vital Signs Date Time Vital Sign Value Performing Clinician Bayron pate 01-21-2022 03:06-0400 Body weight 72.[address] MELINDA RAND [facility] Comment on above: Performed By: #### A FPMAT ####[facility] [address] [place], [place] [address]Ul. Sandi Michelle Encounters Encounter Date Encounter Type [...] RAND Payers Date Payer Category Payer Unknown [id number] 2.16.84 [id number] 1991 Unknown [id number] 2.16.84 0.1.885647.3.579.2.593 1991 Unknown [id number] 2.16.84 0.1.961248.3.579.2.593 1991 Unknown [id number] 2.16.84 0.1.194660.3.579.2.593 1991 Unknown [id number] 2.16.84 0.1.628679.3.579.2.593 1991 Unknown [id number] 2.16.84 0.1.315990.3.579.2.593 1991 Unknown [id number] 2.16.84 0.1.260802.3.579.2.593 1991 Unknown [id number] 2.16.84 0.1.593746.3.579.2.593 1991 Unknown [id number] 2.16.84 0.1.296376.3.579.2.593 1991 Unknown [id number] 2.16.84 0.1.016437.3.579.2.593 1991 Unknown [id number] 2.16.84 0.1.665705.3.579.2.593 1991 Unknown [id number] 2.16.84 0.1.107595.3.579.2.593 1991 Unknown [id number] 2.16.84 0.1.495015.3.579.2.593 1991 Unknown [id number] 2.16.84 0.1.800837.3.579.2.593 1991 Unknown [id number] 2.16.84 0.1.740447.3.579.2.593 1991 Unknown [id number] 2.16.84 0.1.369025.3.579.2.593 1991 Unknown [id number] 2.16.84 0.1.444601.3.579.2.593 1991 Unknown [id number] 2.16.84 0.1.551731.3.579.2.593 1991 Unknown [id number] 2.16.84 0.1.836101.3.579.2.593 1991 Unknown [id number] 2.16.84 0.1.543072.3.579.2.593 1991 Unknown [id number] 2.16.84 0.1.045572.3.579.2.593 1991 Unknown [id number] 2.16.84 0.1.015284.3.579.2.1259 1991 Unknown [id number] 2.16.840 .1.939178.3.579.2.1259 1958 Private Health Insurance [id number] Clinical Note 06-04-2022 Note Date & Type Note Facility 06-04-2022 Note OPERATIVE NOTE OPERATION DATE: 06/04/2022 PROCEDURE: Primary low transverse section. PREOPERATIVE DIAGNOSIS: 1. Intrauterine at 37 5/7 weeks. 2. Breech presentation. POSTOPERATIVE DIAGNOSIS: 1. Intrauterine at 37 5/7 weeks. 2. Breech presentation. 3. 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 SURGEON: Melinda Rand BRAND MARKETING COORDINATOR: SCARLET Albert URINE OUTPUT: Yellow and clear. [...] the Recovery Room in stable condition. [facility] Summary Purpose Family History No Family History Records FoundNo Family History Records Found Advance Directives No Advanced Directives Records FoundNo Advanced Directives Records Found Additional Source Comments INFORMATION SOURCE (unrecogn ized section and content) DATE CREATED AUTHOR 06/14/2022 [facility] DATE CREATED AUTHOR 'S ORGANIZ ATION 12/31/2023 [facility] EPIC FOR RECORDS PERTAINING TO [...] BE BASED ON THE PRIMARY CLINICAL RECORDS. [employer] provides no warranty or guarantee of the accuracy or completeness of information in this document.
[2024-02-25 04:08] LABS: Progesterone 12.3 ng/mL (.)
== END 2024-02-24 08:41 | disposition home or self-care (01) ==
LOC: LAB 08:40
PROVIDERS: PCP Obstetrics & Gynecology; Visit Provider Obstetrics & Gynecology
DX: N97.0 Female infertility associated with anovulation (principal)
CPT/HCPCS: 36415; 84144

== ENCOUNTER 2024-03-05 10:58 | Outpatient (OUT) | payer OTHER, SELFPAY ==
[2024-03-05 12:30] LABS: HCG Quantitative 91 mIU/mL
[2024-03-06 04:07] LABS: Progesterone 48.9 ng/mL (.)
== END 2024-03-05 10:59 | disposition home or self-care (01) ==
LOC: LAB 10:59
PROVIDERS: Visit Provider Obstetrics & Gynecology
DX: N92.6 Irregular menstruation, unspecified (principal)
CPT/HCPCS: 36415; 84144; 84702

== ENCOUNTER 2024-03-07 07:24 | Outpatient (RCR) | payer OTHER, SELFPAY ==
[2024-03-07 09:04] LABS: HCG Quantitative 129 mIU/mL
[2024-03-09 07:23] LABS: HCG Quantitative 339 mIU/mL
[2024-03-12 09:36] LABS: HCG Quantitative 1168 mIU/mL
== END 2024-03-24 23:59 | disposition home or self-care (01) ==
LOC: LAB 07:24
PROVIDERS: Visit Provider Obstetrics & Gynecology
DX: N92.6 Irregular menstruation, unspecified (principal)
CPT/HCPCS: 36415; 84702

== ENCOUNTER 2024-04-05 13:35 | Outpatient (OUT) | payer OTHER, SELFPAY ==
--- NOTE | 2024-04-05 13:38 | US_ITS ---
[address] [address] Patient Name: RUBÉN MACDONALD MRN: [id number] date: 1990 Sex: F Assigned Patient Location: [facility] Current Patient Location: [facility] Accession/Order Number: [id number] Exam Date: 04/05/2024 13:38 Report Date: 04/05/2024 14:19 At the request of: MELINDA FREDERICK Procedure: US OB transvaginal EXAMINATION: US OB transvaginal HISTORY: MISSED MENSES COMPARISON: No relevant comparison available. FINDINGS: Transvaginal images Aragon intrauterine gestation Gestational sac: 3.06 cm, 8 weeks 0 days CRL: 1.6 cm, 8 weeks 4 days Yolk sac: 5.1 mm Heart rate: 184 beats minute Cervix: Closed, 3.7 cm The uterus is normal, anteverted, anteflexed The ovaries are normal Clinical age: 8 weeks 5 days Clinical JOSE: 11/10/2024 Ultrasound age: 8 weeks 4 days Ultrasound JOSE: 11/11/2024 US/US OB transvaginal IMPRESSION: Viable aragon intrauterine gestation measuring 8 weeks 4 days Electronically authenticated by: RIGO FISCHER Date: 04/05/2024 14:19
== END 2024-04-05 13:36 | disposition home or self-care (01) ==
LOC: NOMS 13:35
PROVIDERS: Visit Provider Obstetrics & Gynecology
DX: Z34.91 Encounter for supervision of normal pregnancy, unspecified, first trimester (principal); Z30.8 Encounter for other contraceptive management; N92.6 Irregular menstruation, unspecified
CPT/HCPCS: 76817

== ENCOUNTER 2024-04-16 09:47 | Outpatient (OUT) | payer OTHER, SELFPAY ==
--- OUTSIDE RECORDS SUMMARY | 2024-04-16 10:09 | XMS_ITS | CCD ---
Author Organization [facility] CliniSyma Care Team Providers Care Tow Feeder Name Role Phone OTONIEL, DR LAWRENCE Admitting Unavailable OTONIEL, DR LAWRENCE Attending Unavailable GIOVANA, DR AVI Velarde Primary Care Unavail able WEST, DR RIGO Medina Consulting Unavailable OTONIEL, DR LAWRENCE Consulting Unavailable OTONIEL, DR LAWRENCE Admitting Unavailable OTNOIEL, DR LAWRENCE Attending Unavailable GIOVANA, DR AVI [...] DR LAWRENCE Attending Unavailable GIOVANA, DR AVI Veladre Primary Care Unavail able OTONIEL, DR LAWRENCE [...] Attending Unavailable TELLY, DR PENNINGTON Consulting Unavailable AMADO, DR RIGO Medina Consulting Unavailable OTONIEL, DR LAWRENCE Consulting Unavailable OTONIEL, MELINDA Attending Unavailable OTONIEL, MELINDA Attending Unavailable MELINDA RAND Attending Unavailable Allergies Allergy Classification Reported Allergen(s) Allergy Type Date of Onset Reaction(s) Facility (2 sources) Acetaminophen / HYDROcodone Drug Allergy [facility] Repository Problems Active Problems Problem Classification Problem [...] 06-05-2022 BASO # 0.0 103/ul Normal 0.0-0.1 [facility] Comment on above: Performed By: #### C BC #### [facility] Laboratory [address] [place] [address] Dr. Sandi Michelle Basophils/100 WBC (Bld) 0.2 % Normal 0.2-2.0 [facility] Comment on above: Performed By: #### C BC #### [facility] [address] [place] [address] Dr. Sandi Michelle EO # 0.0 103/ul Normal 0.0-0.7 [facility] Comment on above: Performed By: #### C BC #### [facility] [address] [place] [address] Dr. Sandi Michelle Eosinophils/100 WBC (Bld) 0.2 % Critically low 0.9-7.[address] [facility] Comment on above: Performed By: #### C BC #### [facility] [address] [place] [address] Dr. Sandi Michelle Erythrocyte distribution width (RBC) [Ratio] 14.3 % Normal 11.0-15.0 [facility] Comment on above: Performed By: #### C BC #### [facility] [address] [place] [address] Dr. Sandi Michelle Hematocrit (Bld) [Volume fraction] 27.3 % Critically low 36.0-48.0 [facility] Comment on above: Performed By: #### C BC #### [facility] [address] [place] [address] Dr. Sandi Michelle Hemoglobin (Bld) [Mass/Vol] 9.3 g/dL Critically low 12.0-16.0 [facility] Comment on above: Result Comment: DELI VERY Performed By: #### C BC #### [facility] [address] [place] [address] Dr. Sandi Michelle IG # 0.14 10e3/ul Critically high 0.00-0.03 [facility] Comment on above: Performed By: #### C BC #### [facility] [address] [place] [address] Dr. Sandi Michelle IG % 1.1 % Critically high 0.0-0.5 [facility] Comment on above: Performed By: #### C BC #### [facility] [address] [place] [address] Dr. Sandi Michelle LYMPH # 1.6 103/ul Normal 1.2-3.8 [facility] Comment on above: Performed By: #### C BC #### [facility] [address] [place] [address] Dr. Sandi Michelle Lymphocytes/100 WBC (Bld) 12.1 % Critically low 20.5-60.0 [facility] Comment on above: Performed By: #### C BC #### [facility] [address] [place] [address] Dr. Sandi Michelle MANUAL DIFF REQ NO Normal [facility] Comment on above: Performed By: #### C BC #### [facility] [address] [place] [address] Dr. Sandi Michelle MCH (RBC) [Entitic mass] 31.8 pg Normal 26.7-34.0 [facility] Comment on above: Performed By: #### C BC #### [facility] [address] [place] [address] Dr. Sandi Michelle MCHC (RBC) [Mass/Vol] 34.1 g/dL Normal 29.9-35.[address] [facility] Comment on above: Performed By: #### C BC #### [facility] [address] [address] [address] Sandi Michelle MCV (RBC) [Entitic vol] 93.5 fL Normal 81.0-99.[address] [facility] Comment on above: Performed By: #### C BC #### [facility] [address] [address] [address] Sandi Michelle MONO # 0.9 103/ul Critically high 0.3-0.8 [facility] Comment on above: Performed By: #### C BC #### [facility] [address] [place] [address] Dr. Sandi Michelle Monocytes/100 WBC (Bld) 6.8 % Normal 1.7-12.[address] [facility] Comment on above: Performed By: #### C BC #### [facility] [address] [place] [address] Dr. Sandi Michelle NEUT # 10.3 103/ul Critically high 1.4-6.5 [facility] Comment on above: Performed By: #### C BC #### [facility] [address] [place] [address] Dr. Sandi Michelle Neutrophils/100 WBC (Bld) 79.6 % Critically high 43.0-75.[address] [facility] Comment on above: Performed By: #### C BC #### [facility] [address] [address] [address] Sandi Michelle Platelet mean volume (Bld) [Entitic vol] 9.8 fL Normal 9.5-13.[address] [facility] Comment on above: Performed By: #### C BC #### [facility] [address] [place] [address] Dr. Sandi Michelle PLT 138 103/ul Critically low 150-450 [facility] Comment on above: Performed By: #### C BC #### [facility] [address] [address] [address] Sandi Michelle RBC 2.92 106/ul Critically low 4.20-5.40 [facility] Comment on above: Performed By: #### C BC #### [facility] [address] [address] [address] Sandi Michelle WBC 12.9 103/ul Critically high 4.0-11.0 [facility] Comment on above: Performed By: #### C BC #### [facility] [address] [place] [address] Dr. Sandi Michelle CBC AUTO DIFFon 06-04-2022 BASO # 0.0 103/ul Normal 0.0-0.[address] [facility] Comment on above: Performed By: #### C BC #### [facility] [address] [place] [address] Dr. Sandi Michelle Basophils/100 WBC (Bld) 0.3 % Normal 0.2-2.0 [facility] Comment on above: Performed By: #### C BC #### [facility] [address] [place] [address] Dr. Sandi Michelle EO # 0.0 103/ul Normal 0.0-0.[address] [facility] Comment on above: Performed By: #### C BC #### [facility] [address] [place] [address] Dr. Sandi Michelle Eosinophils/100 WBC (Bld) 0.1 % Critically low 0.9-7.[address] [facility] Comment on above: Performed By: #### C BC #### [facility] [address] [place] [address] Dr. Sandi Michelle Erythrocyte distribution width (RBC) [Ratio] 14.4 % Normal 11.0-15.[address] [facility] Comment on above: Performed By: #### C BC #### [facility] [address] [place] [address] Dr. Sandi Michelle Hematocrit (Bld) [Volume fraction] 37.2 % Normal 36.0-48.0 [facility] Comment on above: Performed By: #### C BC #### [facility] [address] [address] [address] Sandi Michelle Hemoglobin (Bld) [Mass/Vol] 12.9 g/dL Normal 12.0-16.0 [facility] Comment on above: Performed By: #### C BC #### [facility] [address] [place] [address] Dr. Sandi Michelle IG # 0.23 10e3/ul Critically high 0.00-0.03 [facility] Comment on above: Performed By: #### C BC #### [facility] [address] [place] [address] Dr. Sandi Michelle IG % 1.6 % Critically high 0.0-0.5 [facility] Comment on above: Performed By: #### C BC #### [facility] [address] [place] [address] Dr. Sandi Michelle LYMPH # 2.3 103/ul Normal 1.2-3.8 [facility] Comment on above: Performed By: #### C BC #### [facility] [address] [place] [address] Dr. Sandi Michelle Lymphocytes/100 WBC (Bld) 16.0 % Critically low 20.5-60.0 [facility] Comment on above: Performed By: #### C BC #### [facility] [address] [place] [address] Dr. Sandi Michelle MANUAL DIFF REQ NO Normal [facility] Comment on above: Performed By: #### C BC #### [facility] [address] [place] [address] Dr. Sandi Michelle MCH (RBC) [Entitic mass] 32.3 pg Normal 26.7-34.[address] [facility] Comment on above: Performed By: #### C BC #### [facility] [address] [place] [address] Dr. Sandi Michelle MCHC (RBC) [Mass/Vol] 34.7 g/dL Normal 29.9-35.[address] [facility] Comment on above: Performed By: #### C BC #### [facility] [address] [place] [address] Dr. Sandi Michelle MCV (RBC) [Entitic vol] 93.0 fL Normal 81.0-99.0 [facility] Comment on above: Performed By: #### C BC #### [facility] [address] [address] [address] Sandi Michelle MONO # 0.8 103/ul Normal 0.3-0.8 [facility] Comment on above: Performed By: #### C BC #### [facility] [address] [place] [address] Dr. Sandi Michelle Monocytes/100 WBC (Bld) 5.8 % Normal 1.7-12.0 [facility] Comment on above: Performed By: #### C BC #### [facility] [address] [place] [address] Dr. Sandi Michelle NEUT # 10.7 103/ul Critically high 1.4-6.5 [facility] Comment on above: Performed By: #### C BC #### [facility] [address] [place] [address] Dr. Sandi Michelle Neutrophils/100 WBC (Bld) 76.2 % Critically high 43.0-75.0 [facility] Comment on above: Performed By: #### C BC #### [facility] [address] [place] [address] Dr. Sandi Michelle Platelet mean volume (Bld) [Entitic vol] 10.9 fL Normal 9.5-13.[address] [facility] Comment on above: Performed By: #### C BC #### [facility] [address] [place] [address] Dr. Sandi Michelle PLT 194 103/ul Normal 150-[address] [facility] Comment on above: Performed By: #### C BC #### [facility] [address] [place] [address] Dr. Sandi Michelle RBC 4.00 106/ul Critically low 4.20-5.40 [facility] Comment on above: Performed By: #### C BC #### [facility] [address] [place] [address] Dr. Sandi Michelle WBC 14.0 103/ul Critically high 4.0-11.0 [facility] Comment on above: Performed By: #### C BC #### [facility] [address] [place], [place] [address] Dr. Sandi Michelle [facility]on [facility]25 SARS-CoV-2 (COVID-19) RNA ALETHEA+probe Ql (Unsp spec) Not detected Normal NOT DETECTED [facility] Comment on above: Result Comment: When diagnostic [...] for this test is supported by the [employer] of [employer] and Human Service's declaration that [...] be used). Performed By: #### C VDTBH ####[facility] [address] [place], [place] [address]De. Sandi Michelle DRUG SCREEN RAPID (URINE)on 06-04-2022 AMP Negative Normal NEGATIVE [facility] Comment on above: Performed By: #### D RUGRPD ####[facility] [address] [place], [place] [address]Gd. Sandi Michelle BAR Negative Normal NEGATIVE [facility] Comment on above: Performed By: #### D RUGRPD ####[facility] [address] [place], [place] [address]EqDen Michelle BUP Negative Normal NEGATIVE [facility] Comment on above: Performed By: #### D RUGRPD ####[facility] [address] [place], [place] [address]Vv. Yilan Michelle BZO Negative Normal NEGATIVE [facility] Comment on above: Performed By: #### D RUGRPD ####[facility] [address] [address]Dr. Sandi Michelle NINO Negative Normal NEGATIVE [facility] Comment on above: Performed By: #### D RUGRPD ####[facility] [address] [place], [place] [address]Dr. Sandi Michelle CUT-OFFS SEE BELOW Normal [facility] Comment on above: Result Comment: AMP (Amphetamine): 500ng/mL, BAR (Barbituates): 200 ng/mL, BZO (Benzodiazepines): 150 ng/mL, BUP (Buprenorphine): 10 ng/mL, NINO (Cocaine): 150 ng/mL, mAMP (Methamphetamine): 500 ng/mL, MTD (Methadone): 200 ng/mL, OPI (Opiates): 100 ng/mL, OXY (Oxycodone): 100 ng/mL, PCP (Phencyclidine): 25 ng/mL, PPX (Propoxyphene): 300 ng/mL, THC (Cannabinoids): 50 ng/mL, TCA (Trycyclic Antidepressants): 300 ng/mL Performed By: #### D RUGRPD ####[facility] [address] [place], [place] [address]Dr. Sandi Michelle DRUG CUT HEADER DRUG CLASS TEST SYSTEM CUT-OFF CONCENTRATIONS ARE FOLLOWS: Normal [facility] Comment on above: Performed By: #### D RUGRPD ####[facility] [address] [place], [place] [address]Dr. Sandi Michelle mAMP Negative Normal NEGATIVE [facility] Comment on above: Performed By: #### D RUGRPD ####[facility] [address] [place], [place] [address]Dr. Sandi Michelle MTD Negative Normal NEGATIVE [facility] Comment on above: Performed By: #### D RUGRPD ####[facility] [address] [place], [place] [address]Dr. Sandi Michelle OPI Negative Normal NEGATIVE [facility] Comment on above: Performed By: #### D RUGRPD ####[facility] [address] [address]Dr. Sandi Michelle OXY Negative Normal NEGATIVE [facility] Comment on above: Performed By: #### D RUGRPD ####[facility] [address] [place], [place] [address]Dr. Sandi Michelle PCP Negative Normal NEGATIVE [facility] Comment on above: Performed By: #### D RUGRPD ####[facility] [address] [address]Dr. Sandi Michelle PPX Negative Normal NEGATIVE [facility] Comment on above: Performed By: #### D RUGRPD ####[facility] [address] [place], [place] [address]Dr. Sandi Michelle TCA Negative Normal NEGATIVE [facility] Comment on above: Performed By: #### D RUGRPD ####[facility] [address] [place], [place] [address]Dr. Sandi Michelle THC Negative Normal NEGATIVE [facility] Comment on above: Performed By: #### D RUGRPD ####[facility] [address] [place], [place] [address]Dr. Sandi Michelle TYPE AND SCREENon 06-04-2022 TYPE AND SCREEN Negative Normal [facility] Comment on above: Performed By: #### T NS ####[facility] [address] [place], [place] [address]Dr. Sandi Michelle US PREG BIOPHY W NON [...] RIGO FISCHER Date: 2022-05-30 08:30 Normal [address] [facility] GROUP B STREP CULTUREon S. agalactiae Ag Ql (Unsp spec) Culture Observations: NEGATIVE FOR GROUP B STREPTOCOCCUS. Normal [facility] Comment on above: Performed By: #### G BSCX ####[facility] [address] [place], [place] [address]ScDen Michelle US PREG BIOPHY W NON STRESSo [...] by: RIGO FISCHER Date: 2022-05-23 09:41 Normal [facility] US PREG BIOPHY W NON STRESSo [...] by: RIGO FISCHER Date: 2022-05-16 16:10 Normal [facility] US PREG GROWTHon 05-11-2022 US PREG GROWTH EXAMINATION: US PREG GROWTH, US PREG CERVICAL LENGTH HISTORY: Excessive growth affecting management of mother COMPARISON: Ultrasound growth 04/27/2022 FINDINGS: Heart Rate: 137.8 bpm (accession [id number]), 167.3 bpm (accession [id number]) Number: 1.0 Position: BREECH Amniotic Fluid Volume: [...] by: TIFF URIBE Date: 2022-05-11 19:19 Normal [facility] US PREG GROWTHon 04-27-2022 US PREG [...] by: TIFF URIBE Date: 2022-04-27 20:51 Normal [facility] GLUCOSE - 1HRon 03-15-2022 Glucose [Mass/Vol] 137 mg/dL Critically high 74-[address] [facility] Comment on above: Performed By: #### C BC #### [facility] [address] [address] [address] Sandi Michelle HEMOGRAM AND PLATELon 2021 Hematocrit (Bld) [Volume fraction] 34.9 % Critically low 36.0-48.0 [facility] Comment on above: Performed By: #### C BC #### [facility] [address] [place] [address] Dr. Sandi Michelle Hemoglobin (Bld) [Mass/Vol] 11.5 g/dL Critically low 12.0-16.0 [facility] Comment on above: Performed By: #### C BC #### [facility] [address] [place] [address] Dr. Sandi Michelle MCH (RBC) [Entitic mass] 31.8 pg Normal 26.7-34.0 [facility] Comment on above: Performed By: #### C BC #### [facility] [address] [place] [address] Dr. Sandi Michelle MCHC (RBC) [Mass/Vol] 33.0 g/dL Normal 29.9-35.2 [facility] Comment on above: Performed By: #### C BC #### [facility] [address] [place] [address] Dr. Sandi Michelle MCV (RBC) [Entitic vol] 96.4 fL Normal 81.0-99.0 [facility] Comment on above: Performed By: #### C BC #### [facility] [address] [place] [address] Dr. Sandi Michelle PLT 225 103/ul Normal 150-[address] [facility] Comment on above: Performed By: #### C BC #### [facility] [address] [place] [address] Dr. Sandi Michelle RBC 3.62 106/ul Critically low 4.20-5.40 [facility] Comment on above: Performed By: #### C BC #### [facility] [address] [id number] Sandi Michelle WBC 12.9 103/ul Critically high 4.0-11.0 [facility] Comment on above: Performed By: #### C BC #### [facility] [address] [id number] Sandi Michelle CHLAMYDIA/GONOCOCCUS ALETHEA (SW AB/URINE/PAPon 02-04-2022 Chlamydia trachomatis, ALETHEA Negative Normal Negative [facility] Comment on above: Performed By: #### C T/NGNA #### [facility] [address] [id number] Sandi Michelle Neisseria gonorrhoeae, ALETHEA Negative Normal Negative [facility] Comment on above: Performed By: #### C T/NGNA #### [facility] [address] [address] [address] Sandi Michelle PAP ACOG PANEL 2: 30 to 65on 02-04-2022 . . Normal [facility] Comment on above: Result Comment: Perf ormed at: WB Performed By: #### 4 [id number] ####[facility] [address] [address]Dr. Sandi Michelle Age Gdln ACOG Testing 30-65 Normal [facility] Comment on above: Performed By: #### 4 [id number] ####[facility] [address] [address]Dr. Sandi Michelle DIAGNOSIS: Comment Normal [facility] Comment on above: Result Comment: NEGA TIVE FOR INTRAEPITHELIAL LESION OR MALIGNANCY. Performed at: WB Performed By: #### 4 [id number] ####[facility] [address] [address]Dr. Sandi Michelle HPV Aptima Negative Normal Negative [facility] Comment on above: Result Comment: This nucleic acid amplification test detects fourteen high-risk HPV types (16,18,31,33,35,39,45,51,52,56,58,59,66,68) without differentiation. Performed at: =G Performed By: #### 4 [id number] ####[facility] [address] [address]Dr. Sandi Michelle Methodology: Comment Normal [facility] Comment on above: Result Comment: This liquid based ThinPrep(R) pap test was screened with the use of an image guided system. Performed at: WB Performed By: #### 4 [id number] ####[facility] [address] [address]Dr. Sandi Michelle Note: Comment Normal [facility] Comment on above: Result Comment: The Pap smear is a screening test designed to aid in the detection of premalignant and malignant conditions of the uterine cervix. It is not a diagnostic procedure and should not be used as the sole means of detecting cervical cancer. Both false-positive and false-negative reports do occur. . Performed at: WB Performed By: #### 4 [id number] ####[facility] [address] [place], [place] [address]DrDen Michelle Performed by: Comment Normal [facility] Comment on above: Result Comment: Vikas Mcclellan, Chucking Lathe Operator (ASCP) Performed at: WB Performed By: #### [id number] ####[facility] [address] [place], [place] [address]Dr. Sandi Michelle Specimen adequacy: Comment Normal [facility] Comment on above: Result Comment: Sati sfactory for evaluation. No endocervical component is identified. Performed at: WB Performed By: #### 4 [id number] ####[facility] [address] [place], [place] [address]Dr. Sandi Michelle VAGINITIS/VAGINOSIS DNA PROB Nicholas 02-03-2022 Karol species Negative Normal Negative [facility] Comment on above: Performed By: #### V AGINT ####[facility] [address] [address]Dr. Sandi Michelle Gardnerella vaginalis Negative Normal Negative [facility] Comment on above: Performed By: #### V AGINT ####[facility] [address] [address]Dr. Sandi Michelle Trichomonas vaginalis Negative Normal Negative [facility] Comment on above: Performed By: #### V AGINT ####[facility] [address] [place], [place] [address]OdDen Michelle US PREG ANATOMY SINGLEon US PREG [...] RIGO FISCHER Date: 2022-02-01 19:32 Normal [address] [facility] AFP MATERNAL FOR SPINA BIFID Aon 01-21-2022 AFP MoM 1.24 Normal [address] [facility] Comment on above: Performed By: #### A FPMAT ####[facility] [address] [place], [place] [address]YaDen Michelle AFP Value 55.2 ng/mL Normal [facility] Comment on above: Performed By: #### A FPMAT ####[facility] [address] [id number]. Sandi Michelle AFP, Serum for Spina Bifida Report Normal [facility] Comment on above: Performed By: #### A FPMAT ####[facility] [address] [place] [address] [id number]. Sanjuanitasonia Michelle Comment Comment Normal [facility] Comment on above: Result Comment: Iesha Sullivan, Ph.D., [facility] Director . References: Available Upon Request. . Multiples Of Median Cutoffs For AFP Elevations Bhandari 2.5 Black 2.8 IDD 2.0 Twins 4.5 Abbreviation Definitions IDD - Insulin Dep Diabetes OSBR - Open Spina Bifida Risk . For further inquiries contact [facility] [facility] at [phone]. . This test was developed and its performance characteristics determined by [facility]. It has not been cleared or approved by the Food and Drug Administration. Performed By: #### A FPMAT ####[facility] [address] [place] [address]Dr. Sandi Michelle Gest Age Collection Date 18.1 weeks Normal [facility] Comment on above: Performed By: #### A FPMAT ####[facility] [address] [place] [address]Dr. Sandi Michelle Gestat, Age Based on JOES Normal [facility] Comment on above: Result Comment: 05/26 Recalculations are not recommended when gestational dating by LMP and ultrasound are within 10 days. Performed By: #### A FPMAT ####[facility] [address] [place] [id number]. Sandi Michelle Insulin Dep Diabetes Comment Normal [facility] Comment on above: Result Comment: Not provided. . Performed By: #### A FPMAT ####[facility] [address] [place] [address]Dr. Sandi Michelle Interpretation Comment Normal [facility] Comment on above: Result Comment: Inte [...] Customer Services to discuss available options. The [employer] recommends amniocentesis be offered to women age 35 and older. Performed By: #### A FPMAT ####[facility] [address] [place] [id number]. Sandi Michelle [age] Normal [facility] Comment on above: Performed By: #### A FPMAT ####[facility] [address] [place], [place] [address]Dr. Sandi Michelle Multiple Gestation No Normal [facility] Comment on above: Performed By: #### A FPMAT ####[facility] [address] [place], [place] [id number]. Sandi Michelle OSBR Risk 1 IN 5748 Normal [facility] Comment on above: Performed By: #### A FPMAT ####[facility] [address] [place] [address]Dr. Sandi Michelle PDF . Normal [facility] Comment on above: Performed By: #### A FPMAT ####[facility] [address] [place] [id number]. Sandi Michelle Race Normal [facility] Comment on above: Performed By: #### A FPMAT ####[facility] [address] [place] [address]Dr. Sandi Michelle Test Results: Negative Normal [facility] Comment on above: Performed By: #### A FPMAT ####[facility] [address] [place], [place] [address]DrDen Michelle HEP B SURFACE ANTIGEN SCREEN on 11-22-2021 HBsAg Screen Negative Normal Negative [facility] Comment on above: Performed By: #### H BSANS ####[facility] [address] [place], [place] [address]Dr. Sandi Michelle HEPATITIS C VIRUS AB W/ REFL EX QUANTon 11-22-2021 HCV AB 0.1 s/co ratio Normal 0.0-0.9 [facility] Comment on above: Performed By: #### C BC #### [facility] [address] [address] [address] Sandi Michelle Interpretation: Comment Normal [facility] Comment on above: Result Comment: Nega tive Not infected with HCV, unless recent infection is suspected or other evidence exists to indicate HCV infection. Performed By: #### C BC #### [facility] [address] [address] [address] Sandi Michelle HIV 1 AND 2 WITH REFLEXon HIV Screen 4th Generation wRfx Non-Reactive Normal Non Reactive [facility] Comment on above: Result Comment: HIV Negative HIV-1/HIV-2 antibodies and HIV-1 p24 antigen were NOT detected. There is no laboratory evidence of HIV infection. Performed By: #### H IV12 ####[facility] [address] [place] [address] [address]Dr. Sandi Michelle RPR QUANTon 11-22-2021 Rapid Plasma Reagin, Quant Non-Reactive Normal NonRea<1:1 [facility] Comment on above: Result Comment: Plea Note: This test does not meet current guidelines for screening and diagnosis of syphilis. This test is intended for following treatment response in patients being treated for syphilis infection. To screen for syphilis infection, a reflex cascade that includes both RPR and a treponema-specific assay should be utilized, such as Treponema pallidum (Syphilis) Screening [place] (604326) or Rapid Plasma Reagin (RPR) Test With Reflex to Quantitative RPR and Confirmatory Treponema pallidum Antibodies (075723). Performed By: #### C BC #### [facility] [address] [address] [address] Sandi Michelle RUBELLA AB IGGon 11-22-2021 Rubella Antibodies, IgG 9.33 index Normal Immune >0.99 [facility] Comment on above: Result Comment: Non- immune <0.90 Equivocal 0.90 - 0.99 Immune >0.99 Performed By: #### C BC #### [facility] [address] [place] [address] Dr. Sandi Michelle CBC AUTO DIFFon 11-21-2021 BASO # 0.0 103/ul Normal 0.0-0.1 [facility] Comment on above: Performed By: #### C BC #### [facility] [address] [place] [address] Dr. Sandi Michelle Basophils/100 WBC (Bld) 0.4 % Normal 0.2-2.0 [facility] Comment on above: Performed By: #### C BC #### [facility] [address] [place] [address] Dr. Sandi Michelle EO # 0.1 103/ul Normal 0.0-0.7 [facility] Comment on above: Performed By: #### C BC #### [facility] [address] [place] [address] Dr. Sandi Michelle Eosinophils/100 WBC (Bld) 0.6 % Critically low 0.9-7.0 [facility] Comment on above: Performed By: #### C BC #### [facility] [address] [place] [address] Dr. Sandi Michelle Erythrocyte distribution width (RBC) [Ratio] 11.9 % Normal 11.0-15.0 [facility] Comment on above: Performed By: #### C BC #### [facility] [address] [place] [address] Dr. Sandi Michelle Hematocrit (Bld) [Volume fraction] 37.1 % Normal 36.0-48.0 [facility] Comment on above: Performed By: #### C BC #### [facility] [address] [place] [address] Dr. Sandi Michelle Hemoglobin (Bld) [Mass/Vol] 12.2 g/dL Normal 12.0-16.0 [facility] Comment on above: Performed By: #### C BC #### [facility] [address] [place] [address] Dr. Sandi Michelle IG # 0.03 10e3/ul Normal 0.00-0.03 [facility] Comment on above: Performed By: #### C BC #### [facility] [address] [place] [address] Dr. Sandi Michelle IG % 0.4 % Normal 0.0-0.5 [facility] Comment on above: Performed By: #### C BC #### [facility] [address] [place] [address] Dr. Sandi Michelle LYMPH # 1.8 103/ul Normal 1.2-3.[address] [facility] Comment on above: Performed By: #### C BC #### [facility] [address] [place] [address] Dr. Sandi Michelle Lymphocytes/100 WBC (Bld) 23.4 % Normal 20.5-60.0 [facility] Comment on above: Performed By: #### C BC #### [facility] [address] [place] [address] Dr. Sandi Michelle MANUAL DIFF REQ NO Normal [facility] Comment on above: Performed By: #### C BC #### [facility] [address] [place] [address] Dr. Sandi Michelle MCH (RBC) [Entitic mass] 31.4 pg Normal 26.7-34.0 [facility] Comment on above: Performed By: #### C BC #### [facility] [address] [place] [address] Dr. Sandi Michelle MCHC (RBC) [Mass/Vol] 32.9 g/dL Normal 29.9-35.[address] [facility] Comment on above: Performed By: #### C BC #### [facility] [address] [place] [address] Dr. Sandi Michelle MCV (RBC) [Entitic vol] 95.6 fL Normal 81.0-99.[address] [facility] Comment on above: Performed By: #### C BC #### [facility] [address] [place] [address] Dr. Sandi Michelle MONO # 0.5 103/ul Normal 0.3-0.[address] [facility] Comment on above: Performed By: #### C BC #### [facility] [address] [place] [address] Dr. Sandi Michelle Monocytes/100 WBC (Bld) 6.6 % Normal 1.7-12.0 [facility] Comment on above: Performed By: #### C BC #### [facility] [address] [place] [address] Dr. Sandi Michelle NEUT # 5.4 103/ul Normal 1.4-6.5 [facility] Comment on above: Performed By: #### C BC #### [facility] [address] [place] [address] Dr. Sandi Michelle Neutrophils/100 WBC (Bld) 68.6 % Normal 43.0-75.[address] [facility] Comment on above: Performed By: #### C BC #### [facility] [address] [place] [address] Dr. Sandi Mihcelle Platelet mean volume (Bld) [Entitic vol] 10.1 fL Normal 9.5-13.[address] [facility] Comment on above: Performed By: #### C BC #### [facility] [address] [place] [address] Dr. Sandi Michelle PLT 237 103/ul Normal 150-[address] [facility] Comment on above: Performed By: #### C BC #### [facility] [address] [place] [address] Dr. Sandi Michelle RBC 3.88 106/ul Critically low 4.20-5.40 [facility] Comment on above: Performed By: #### C BC #### [facility] [address] [place] [address] Dr. Sandi Michelle WBC 7.9 103/ul Normal 4.0-11.[address] [facility] Comment on above: Performed By: #### C BC #### [facility] [address] [place], [place] [address] Dr. Sandi Michelle CULTURE URINEon 11-21-2021 CULTURE URINE Culture Observations : LIGHT GROWTH OF MIXED GENITAL MENDEZ. NO POTENTIAL PATHOGENS SEEN. Normal [facility] Comment on above: Performed By: #### U RCX #### [facility] [address] [address] [address] Sandi Michelle GLYCOHEMOGLOBIN A1Con 2021 ADA RECOMMENDATION SEE BELOW Normal [facility] Comment on above: Result Comment: ADA RECOMMENDED LIMIT 4.0 - 6.0 ADA THERAPEUTIC TARGET < 7.0 ACTION SUGGESTED > 7.0 Performed By: #### A 1C ####[facility] [address] [place] [address]Dr. Sandi Michelle Glucose [Mass/Vol] 103 mg/dL Normal [facility] Comment on above: Performed By: #### A 1C ####[facility] [address] [place] [address]Dr. Sandi Michelle HbA1c (Bld) [Mass fraction] 5.2 % Normal 4.5-6.2 [facility] Comment on above: Performed By: #### A 1C ####[facility] [address] [place] [address]Dr. Sandi Michelle TYPE AND SCREENon 11-21-2021 TYPE AND SCREEN Negative Normal [facility] Comment on above: Performed By: #### T NS #### [facility] [address] [address] [address] Sandi Michelle US PREG TVon 11-03-2021 [...] TIFF URIBE Date: 2021-11-03 07:[address] [facility] PREG QUANT HCGon 10-14-2021 HCG QUANT 469 mIU/mL Normal [facility] Comment on above: Performed By: #### P REGQNT #### [facility] [address] [place], [place] [address] Dr. Sandi Michelle HCG RANGE SEE BELOW Normal [facility] Comment on above: Result Comment: 5-50 0-1 WEEK 40-300 1-2 WEEKS 100-1,000 2-3 WEEKS 500-6,000 3-4 WEEKS 5,000-200,000 1-2 MONTHS 10,000-100,000 2-3 MONTHS 3,000-50,000 2ND TRIMESTER 1,000-50,000 3RD TRIMESTER Performed By: #### P REGQNT #### [facility] [address] [address] [address] Sandi Michelle PREG QUANT HCGon 10-12-2021 HCG QUANT 184 mIU/mL Normal [facility] Comment on above: Performed By: #### C BC #### [facility] [address] [id number] [address] Sandi Michelle HCG RANGE SEE BELOW Normal [facility] Comment on above: Result Comment: 5-50 0-1 WEEK 40-300 1-2 WEEKS 100-1,000 2-3 WEEKS 500-6,000 3-4 WEEKS 5,000-200,000 1-2 MONTHS 10,000-100,000 2-3 MONTHS 3,000-50,000 2ND TRIMESTER 1,000-50,000 3RD TRIMESTER Performed By: #### C BC #### [facility] [address] [id number] [address] Sandi Michelle PROTEIN C FUNC ACTIVITYon Prt C Activity (Chromogenic) 130 % Normal [facility] Comment on above: Result Comment: Refe rence Range: 17 years and older: 73 - 180 Effective August 10, 2021 Prt C Activity, (Chromogenic) will be made non-orderable. This will not affect any profile that includes Prt C Activity (Chromogenic). [facility] offers [id number] Protein C Functional. For more information please contact your local [facility] Information Security Officer. Performed By: #### P RCACT ####[facility] [address] [place] [address]Dr. Sandi Michelle FACTOR V LEIDEN MUTATION CIARAN LYSISon 07-27-2021 Factor V Leiden Comment Normal [facility] Comment on above: Result Comment: Resu lt: c.1601G>A (p.Vmn100Lke) - Not Detected . This result is not associated with an increased risk for venous thromboembolism. See Additional Clinical Information and Comments. Additional Clinical Information: Venous thromboembolism is a multifactorial disease influenced by genetic, environmental, and circumstantial risk factors. The c.1601G>A (p. Orv367Oxt) variant in the F5 gene, commonly referred [...] c.*97G>A variant and Factor V Leiden (PMID: 99493403). Additional risk factors include but are not [...] health care providers to discuss results at [id number]-INRJ (3815). . Test Details: Variant Analyzed: c.1601G>A (p. Ohw738Yfh), referred to as Factor V Leiden . [...] developed and its performance characteristics determined by [facility]. It has not been cleared or approved by the Food and Drug Administration. . References: Masoud S, Hawa GUTIÉRREZ, Randy R, Moses WW, Luis A JH; [employer]CM[employer] Professional Practice and Guidelines Committee. Addendum: [employer] consensus statement on factor V Leiden mutation testing. [place] [employer]. 2020Sep 26. doi: 10.1038/b99936-915-07975-m. PMID: 25084229. . Miriam GAMING. Factor V Leiden Thrombophilia. 1998December 05 [Updated 2017Jul 28]. In: Jv MP, Delia HH, Ian RA, et al., editors. Jovita(R) [Internet]. [place] ([place]): [facility]; 3009-8891. Available from: https://www.ncbi.nlm.nih.gov/books/URL1593/ . Jonh S, Hawa GUTIÉRREZ, Francisco Javier X, Leobardo B, Ash EB, Deysi P, Mari CS; [employer] Laboratory Machine Sand Mixer Committee. Venous thromboembolism laboratory testing (factor V Leiden and factor II c.*97G>A), 2018 update: a technical standard of the [place] [employer] ([employer]). [place] [employer]. 2018 Jun;20(12):3445-9688. doi: 10.1038/e41805-876-3450-e. Epub 2017Apr 28. PMID: 51106233. . Martha Guillen, PhD, FACMG Lindsay Jaquez, PhD, FACMG Pete Brown, PhD, FACMG Geronimo Mcdaniel, PhD, FACMG Norm Hays, PhD, FAC Maureen Mancilla, PhD, [facility] Performed By: #### F [facility] ####[facility] [address] [place], [place] [address]Bn. Sandi Michelle ANTITHROMBIN ACTIVITYon 01-0 Antithrombin Activity 102 % Normal 75-[address] [facility] Comment on above: Result Comment: Dire ct Xa inhibitor anticoagulants such as rivaroxaban, apixaban and edoxaban will lead to spuriously elevated antithrombin activity levels possibly masking a deficiency. Performed By: #### C BC #### [facility] [address] [id number] [address] Sandi Michelle B-2 GLYCOPROTEIN AB IGGon Beta-2 Glycoprotein I Ab, IgG <9 Normal 0-20 [facility] Comment on above: Result Comment: The reference interval reflects a 3SD or 99th percentile interval, which is thought to represent a potentially clinically significant result in accordance with the International Consensus Statement on the classification criteria for definitive antiphospholipid syndrome (APS). J Thromb Haem 2006;4:295-306. Performed By: #### B 2GPG ####[facility] [address] [place] [address]Dr. Sandi Michelle B2-GLYCOPROTEIN 1 AB IGMon 0 07-25-2021 Beta-2 Glycoprotein I Ab, IgM <9 Normal 0-32 [facility] Comment on above: Result Comment: The reference interval reflects a 3SD or 99th percentile interval, which is thought to represent a potentially clinically significant result in accordance with the International Consensus Statement on the classification criteria for definitive antiphospholipid syndrome (APS). J Thromb Haem 2006;4:295-306. Performed By: #### B GLYIGM ####[facility] [address] [place] [address]Dr. Sandi Michelle LUPUS ANTICOAGULANT W/REFLEX on 07-24-2021 aPTT Coag (Bld) [Time] 30.9 s Normal 0.0-51.9 [facility] Comment on above: Performed By: #### L UPUSRF ####[facility] [address] [place] [address]DrDen Michelle dRVVT 33.0 sec Normal 0.0-47.0 [facility] Comment on above: Performed By: #### L UPUSRF ####[facility] [address] [place] [address]DrDen Michelel Interpretation Comment: Normal [facility] Comment on above: Result Comment: No l upus anticoagulant was detected. Performed By: #### L UPUSRF ####[facility] [address] [place] [address]Dr. Sanjuanitasonia Michelle PROTEIN S ANTIGENon 07-24-20 21 Protein S, Free 104 % Normal 61-136 [facility] Comment on above: Performed By: #### P RTSAG ####[facility] [address] [place] [address]Dr. Sandi Michelle Protein S, Total 90 % Normal 60-150 [facility] Comment on above: Result Comment: This test was developed and its performance characteristics determined by [facility]. It has not been cleared or approved by the Food and Drug Administration. Performed By: #### P RTSAG ####[facility] [address] [place] [address]Dr. Sanjuanitasonia Miguel Angel PROTEIN S, FUNCTIONALon - Protein S-Functional 107 % Normal 63-140 [facility] Comment on above: Result Comment: Prot ein S activity may be falsely increased (masking an abnormal, low result) in patients receiving direct Xa inhibitor (e.g., rivaroxaban, apixaban, edoxaban) or a direct thrombin inhibitor (e.g., dabigatran) anticoagulant treatment due to assay interference by these drugs. Performed By: #### C BC #### [facility] [address] [place] [address] Dr. Sandi Michelle ANTICARDIOLIPIN AB (JEANIE) IGG on 07-23-2021 Anticardiolipin Ab,IgG,Qn <9 Normal 0-14 [facility] Comment on above: Result Comment: Nega tive: <15 Indeterminate: 15 - 20 Low-Med Positive: >20 - 80 High Positive: >80 Performed By: #### C ARDLIP #### [facility] [address] [place] [address] Dr. Sandi Michelle ANTICARDIOLIPIN AB (JEANIE) IGM on 07-23-2021 Anticardiolipin Ab,IgM,Qn 12 MPL U/mL Normal 0-12 [facility] Comment on above: Result Comment: Nega tive: <13 Indeterminate: 13 - 20 Low-Med Positive: >20 - 80 High Positive: >80 Performed By: #### C ARDIGM ####[facility] [address] [place], [place] [address]Ol. Sandi Michelle Vital Signs Date Time Vital Sign Value Performing Clinician Bayron pate 01-21-2022 03:06-0400 Body weight 72.[address] MELINDA RAND [facility] Comment on above: Performed By: #### A FPMAT ####[facility] [address] [place], [place] [address]Wm. Sandi Michelle Encounters Encounter Date Encounter Type Care Provider Facility Start: 04-05-2024 End: 04-05-2024 ambulatory MELINDA RAND Not Available Start: 01-02-2024 End: 01-02-2024 ambulatory MELINDA RAND Not Available Start: 12-29-2023 End: 12-29-2023 ambulatory MELINDA RAND [...] RAND Payers Date Payer Category Payer Unknown [id number] 2..84 [id number] 1991 Unknown [id number] 2.16.84 0.1.967197.3.579.2.593 1991 Unknown [id number] 2.16.84 0.1.366897.3.579.2.593 1991 Unknown [id number] 2.16.84 0.1.294513.3.579.2.593 1991 Unknown [id number] 2.16.84 0.1.678065.3.579.2.593 1991 Unknown [id number] 2.16.84 0.1.361934.3.579.2.593 1991 Unknown [id number] 2.16.84 0.1.461893.3.579.2.593 1991 Unknown [id number] 2.16.84 0.1.756313.3.579.2.593 1991 Unknown [id number] 2.16.84 0.1.163017.3.579.2.593 1991 Unknown [id number] 2.16.84 0.1.072223.3.579.2.593 1991 Unknown [id number] 2.16.84 0.1.171430.3.579.2.593 1991 Unknown [id number] 2.16.84 0.1.436381.3.579.2.593 1991 Unknown [id number] 2.16.84 0.1.047241.3.579.2.593 1991 Unknown [id number] 2.16.84 0.1.257705.3.579.2.593 1991 Unknown [id number] 2.16.84 0.1.022750.3.579.2.593 1991 Unknown [id number] 2.16.84 0.1.136902.3.579.2.593 1991 Unknown [id number] 2.16.84 0.1.875333.3.579.2.593 1991 Unknown [id number] 2.16.84 0.1.642628.3.579.2.593 1991 Unknown [id number] 2.16.84 0.1.361479.3.579.2.593 1991 Unknown [id number] 2.16.84 0.1.957901.3.579.2.593 1991 Unknown [id number] 2.16.84 0.1.829988.3.579.2.593 1991 Unknown [id number] 2.16.84 0.1.840909.3.579.2.1259 1991 Unknown [id number] 2.16.84 0.1.817322.3.579.2.1259 1991 Unknown [id number] 2.16.84 0.1.988726.3.579.2.1259 1991 Unknown [id number] 2.16.840 .1.513491.3.579.2.1259 1959 Private Health Insurance [id number] Clinical Note 06-04-2022 Note Date & Type Note Facility 06-04-2022 Note OPERATIVE NOTE OPERATION DATE: 06/04/2022 PROCEDURE: Primary low transverse section. PREOPERATIVE DIAGNOSIS: 1. Intrauterine at 37 5/7 weeks. 2. Breech presentation. POSTOPERATIVE DIAGNOSIS: 1. Intrauterine at 37 5/7 weeks. 2. Breech presentation. 3. 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 SURGEON: Melinda Rand ANALYTICAL TECHNICIAN: SCARLET Albert URINE OUTPUT: Yellow and clear. [...] patient's uterus and extended laterally digitally. The infant was then delivered atraumatically after the bladder [...] the Recovery Room in stable condition. [facility] Summary Purpose Family History No Family History Records FoundNo Family History Records Found Advance Directives No Advanced Directives Records FoundNo Advanced Directives Records Found Additional Source Comments INFORMATION SOURCE (unrecogn ized section and content) DATE CREATED AUTHOR 06/14/2022 [facility] DATE CREATED AUTHOR 'S ORGANIZ ATION 04/07/2024 [facility] FOR RECORDS PERTAINING TO PATIENTS WHO ARE [...] BE BASED ON THE PRIMARY CLINICAL RECORDS. [facility] [employer] [facility]. provides no warranty or guarantee of the accuracy or completeness of information in this document.
[2024-04-16 10:20] LABS: Basophils Percent Auto 0.4 % (0.2-2.0); Eosinophils Absolute Auto 0.1 10^3/uL (0.0-0.7); Eosinophils Percent Auto 0.9 % (0.9-7.0); Hematocrit 37.1 % (36.0-48.0); Hemoglobin 12.6 g/dL (12.0-16.0); Immature Granulocytes Abs Auto 0.03 10^3/uL (0.00-0.03); Immature Granulocytes Pct Auto 0.4 % (0.0-0.5); Lymphocytes Absolute Auto 1.7 10^3/uL (1.2-3.8); Lymphocytes Percent Auto 21.2 % (20.5-60.0); Mean Corpuscular Hemoglobin 31.7 pg (26.7-34.0); Mean Corpuscular Volume 93.5 fL (81.0-99.0); Mean Platelet Volume 9.8 fL (9.5-13.5); Monocytes Absolute Auto 0.6 10^3/uL (0.3-0.8); Monocytes Percent Auto 6.8 % (1.7-12.0); Neutrophils Absolute Auto 5.7 10^3/uL (1.4-6.5); Neutrophils Percent Auto 70.3 % (43.0-75.0); Platelet Count 219 10^3/uL (150-450); Red Blood Count 3.97 10^6/uL (4.20-5.40); Red Cell Distribution Width 11.9 % (11.0-15.0); White Blood Count 8.1 10^3/uL (4.0-11.0)
[2024-04-16 10:27] LABS: Estimated Average Glucose 94 mg/dL; Glycohemoglobin A1C 4.9 % (4.5-6.2)
[2024-04-16 11:10] LABS: Amphetamine Screen Urine NEGATIVE (NEGATIVE); Barbiturates Screen Urine NEGATIVE (NEGATIVE); Benzodiazepines Screen Urine NEGATIVE (NEGATIVE); Buprenorphine Screen Urine NEGATIVE (NEGATIVE); Cannabinoid Screen Urine NEGATIVE (NEGATIVE); Cocaine Screen Urine NEGATIVE (NEGATIVE); Methadone Screen Urine NEGATIVE (NEGATIVE); Methamphetamines Screen Urine NEGATIVE (NEGATIVE); Opiate Screen Urine NEGATIVE (NEGATIVE); Oxycodone Screen Urine NEGATIVE (NEGATIVE); Phencyclidine Screen Urine NEGATIVE (NEGATIVE); Tricyclic Antidepressant Urine NEGATIVE (NEGATIVE)
[2024-04-16 13:27] LABS: BOX Test Reference Lab UNITY; BOX Test Sent Out UNITY
[2024-04-17 08:15] LABS: HBsAg Screen Negative (Negative); HCV Ab Non Reactive (Non Reactive); HIV Ab/p24 Ag Screen Non Reactive (Non Reactive); Rubella Antibodies, IgG 7.05 index (Immune >0.99)
[2024-04-17 13:11] LABS: Rapid Plasma Reagin, Quant Non Reactive titer (NonRea<1:1)
== END 2024-04-16 09:48 | disposition home or self-care (01) ==
LOC: LAB 09:49
PROVIDERS: Visit Provider Obstetrics & Gynecology
DX: N92.6 Irregular menstruation, unspecified (principal)
CPT/HCPCS: 36415; 80307; 83036; 85025; 86592; 86762; 86803; 86850; 86900; 86901; 87086; 87340; 87389

== ENCOUNTER 2024-06-23 13:57 | Outpatient (OUT) | payer OTHER, SELFPAY ==
--- NOTE | 2024-06-23 13:59 | US_ITS ---
[address] [address] Patient Name: RUBÉN MACDONALD MRN: [id number] date: 1990 Sex: F Assigned Patient Location: US Current Patient Location: Accession/Order Number: [id number] Exam Date: 06/23/2024 14:00 Report Date: 06/24/2024 06:16 At the request of: MELINDA FREDERICK Procedure: US OB anatomy EXAMINATION: US OB anatomy, US OB cervical length HISTORY: anatomic survey COMPARISON: No relevant comparison available. TECHNIQUE: Transabdominal sonographic examination was performed for obstetrical and evaluation. FINDINGS: Number: 1 Heart Rate: 145.16 bpm H.B. /min Amniotic Fluid Volume: Subjectively normal Placental Location: Anterior-posterior with complete previa. Cervix Length: 4.43 cm ; closed. ANATOMY: Normal Structures -cerebellum, choroid plexus, cisterna magna, lateral cerebral ventricles, orbits, midline falx, hard palate, four-chamber heart, RVOT, LVOT, stomach, kidneys, bladder, umbilical cord insertion into abdomen, three-vessel cord, cervical spine, thoracic spine, lumbar spine, sacral spine, right upper extremity, left upper extremity, right lower extremity, left lower extremity. SUBOPTIMALLY SEEN: None ABNORMALITIES: None BIOMETRY: BPD: 4.91 cm; 20 weeks 6 days; 82 % HC: 17.81 cm; 20 weeks 2 days; 55 % AC: 15.83 cm; 21 weeks 0 days; 75.40 % FL: 3.17 cm; 19 weeks 6 days; 36.70 % EFW:354.63 g; 71.40 % FL/AC: 20.01 FL/BPD: 64.57 HC/AC: 1.13 GESTATIONAL AGE: Age by EDC: 20 weeks 0 days Age by current US: 20 weeks 4 days JOSE by current US: 2024-11-06 JOSE by EDC: 2024-11-10 US/US OB anatomy IMPRESSION: 1. Single live intrauterine with growth detailed above. 2. Complete previa with placenta is seen anterior and posterior to the cervical os. Electronically authenticated by: TIFF URIBE Date: 06/24/2024 06:16
--- NOTE | 2024-06-23 13:59 | US_ITS ---
[address] [address] Patient Name: RUBÉN MACDONALD MRN: [id number] date: 1990 Sex: F Assigned Patient Location: US Current Patient Location: Accession/Order Number: [id number] Exam Date: 06/23/2024 14:00 Report Date: 06/24/2024 06:16 At the request of: MELINDA FREDERICK Procedure: US OB cervical length EXAMINATION: US OB anatomy, US OB cervical length HISTORY: anatomic survey COMPARISON: No relevant comparison available. TECHNIQUE: Transabdominal sonographic examination was performed for obstetrical and evaluation. FINDINGS: Number: 1 Heart Rate: 145.16 bpm H.B. /min Amniotic Fluid Volume: Subjectively normal Placental Location: Anterior-posterior with complete previa. Cervix Length: 4.43 cm ; closed. ANATOMY: Normal Structures -cerebellum, choroid plexus, cisterna magna, lateral cerebral ventricles, orbits, midline falx, hard palate, four-chamber heart, RVOT, LVOT, stomach, kidneys, bladder, umbilical cord insertion into abdomen, three-vessel cord, cervical spine, thoracic spine, lumbar spine, sacral spine, right upper extremity, left upper extremity, right lower extremity, left lower extremity. SUBOPTIMALLY SEEN: None ABNORMALITIES: None BIOMETRY: BPD: 4.91 cm; 20 weeks 6 days; 82 % HC: 17.81 cm; 20 weeks 2 days; 55 % AC: 15.83 cm; 21 weeks 0 days; 75.40 % FL: 3.17 cm; 19 weeks 6 days; 36.70 % EFW:354.63 g; 71.40 % FL/AC: 20.01 FL/BPD: 64.57 HC/AC: 1.13 GESTATIONAL AGE: Age by EDC: 20 weeks 0 days Age by current US: 20 weeks 4 days JOSE by current US: 2024-11-06 JOSE by EDC: 2024-11-10 US/US OB cervical length IMPRESSION: 1. Single live intrauterine with growth detailed above. 2. Complete previa with placenta is seen anterior and posterior to the cervical os. Electronically authenticated by: TIFF URIBE Date: 06/24/2024 06:16
--- OUTSIDE RECORDS SUMMARY | 2024-06-23 13:59 | XMS_ITS | CCD ---
Author Organization [facility] Care Team Providers Care [employer] Professional Name Role Phone KEYONA, DR LAWRENCE Admitting Unavailable KEYONA, DR LAWRENCE Attending Unavailable GIOVANA, DR AVI Velarde Primary Care Unavail able WEST, DR RIGO Medina Consulting Unavailable KEYONA, DR LAWRENCE Consulting Unavailable KEYONA, DR LAWRENCE Admitting Unavailable KEYONA, DR LAWRENCE Attending Unavailable GIOVANA, DR AVI Velarde Primary Care Unavail able KEYONA, DR LAWRENCE Admitting Unavailable KEYONA, DR LAWRENCE Attending Unavailable GIOVANA, DR AVI Velarde Primary Care Unavail able KEYONA, DR LAWRENCE Consulting Unavailable KEYONA, DR LAWRENCE Admitting Unavailable KEYONA, DR LAWRENCE Attending Unavailable GIOVANA, DR AVI Velarde Primary Care Unavail able KEYONA, DR LAWRENCE Consulting Unavailable KEYONA, DR LAWRENCE Procedure Practitioner Unavailab SRIKANTH James Consulting Unavailable MORGOJOSE RAMON Galloway Consulting Unavailable MISSY PIERRE Consulting Unavailable KEYONA, DR LAWRENCE Admitting Unavailable KEYONA, DR LAWRENCE Attending Unavailable GIOVANA, DR AVI Velarde Primary Care Unavail able KEYONA, DR LAWRENCE Consulting Unavailable KEYONA, DR LAWRENCE Admitting Unavailable KEYONA, DR LAWRENCE Attending Unavailable GIOVANA, DR AVI Velarde Primary Care Unavail able KEYONA, DR LAWRENCE Admitting Unavailable KEYONA, DR LAWRENCE Attending Unavailable GIOVANA, DR AVI Velarde Primary Care Unavail able KEYONA, DR LAWRENCE Consulting Unavailable KEYONA, DR LAWRENCE Admitting Unavailable KEYONA, DR LAWRENCE Attending Unavailable GIOVANA, DR AVI Velarde Primary Care Unavail able KEYONA, DR LAWRENCE Consulting Unavailable ZIEBER, DR TIFF Echevarria Consulting Unavailable KEYONA, DR LAWRENCE Admitting Unavailable KEYONA, DR LAWRENCE Attending Unavailable GIOVANA, DR AVI Velarde Primary Care Unavail able KEYONA, DR LAWRENCE Consulting Unavailable ZIEBER, DR TIFF Echevarria Consulting Unavailable KEYONA, DR LAWRENCE Admitting Unavailable KEYONA, DR LAWRENCE Attending Unavailable GIOVANA, DR AVI Velarde Primary Care Unavail able KEYONA, DR LAWRENCE Consulting Unavailable ZIEBER, DR TIFF Echevarria Consulting Unavailable KEYONA, DR LAWRENCE Admitting Unavailable KEYONA, DR LAWRENCE Attending Unavailable GIOVANA, DR AVI Velarde Primary Care Unavail able KEYONA, DR LAWRENCE Admitting Unavailable KEYONA, DR LAWRENCE Attending Unavailable GIOVANA, DR AVI Velarde Primary Care Unavail able KEYONA, DR LAWRENCE Consulting Unavailable KEYONA, DR LAWRENCE Admitting Unavailable KEYONA, DR LAWRENCE Attending Unavailable GIOVANA, DR AVI Velarde Primary Care Unavail able KEYONA, DR LAWRENCE Consulting Unavailable GIOVANA, DR AVI Velarde Primary Care Unavail able SHAWN, SRIKANTH Admitting Unavailable SHAWN, NICOLÁS Attending Unavailable WEST, DR RIGO Medina Consulting Unavailable KEYONA, DR LAWRENCE Consulting Unavailable SHAWN, SRIKANTH Consulting Unavailable KEYONA, DR LAWRENCE Admitting Unavailable KEYONA, DR LAWRENCE Attending Unavailable GIOVANA, DR AVI Velarde Primary Care Unavail able WEST, DR RIGO Medina Consulting Unavailable KEYONA, DR LAWRENCE Consulting Unavailable KEYONA, DR LAWRENCE Admitting Unavailable KEYONA, DR LAWRENCE Attending Unavailable GIOVANA, DR AVI Velarde Primary Care Unavail able KEYONA, DR LAWRENCE Consulting Unavailable KEYONA, DR LAWRENCE Admitting Unavailable KEYONA, DR LAWRENCE Attending Unavailable GIOVANA, DR AVI Velarde Primary Care Unavail able KEYONA, DR LAWRENCE Consulting Unavailable KEYONA, DR LAWRENCE Admitting Unavailable KEYONA, DR LAWRENCE Attending Unavailable GIOVANA, DR AVI Velarde Primary Care Unavail able KEYONA, DR LAWRENCE Admitting Unavailable KEYONA, DR LAWRENCE Attending Unavailable GIOVANA, DR AVI Velarde Primary Care Unavail able KEYONA, DR LAWRENCE Admitting Unavailable KEYONA, DR LAWRENCE Attending Unavailable GIOVANA, DR AVI Velarde Primary Care Unavail able KEYONA, DR LAWRENCE Consulting Unavailable GIOVANA, DR AVI Velarde Primary Care Unavail able TELLY, DR PENNINGTON Admitting Unavailable TELLY, DR PENNINGTON Attending Unavailable TELLY, DR PENNINGTON Consulting Unavailable READING, DR RIGO Medina Consulting Unavailable KEYONA, DR LAWRENCE Consulting Unavailable Bandar Cueto MDishna Primary Care Provider MELINDA RAND Attending Unavailable KEYONA, MELINDA Attending Unavailable KEYONA, MELINDA Attending Unavailable KEYONA, MELINDA Attending Unavailable KEYONA, MELINDA Attending Unavailable Allergies Allergy Classification Reported Allergen(s) Allergy Type Date of Onset Reaction(s) Facility (2 sources) Acetaminophen / HYDROcodone Drug Allergy [facility] Medications Current Medications Medication Drug Class(es) Dates Sig (Normalized) Sig (Original) folic acid 1 mg oral tablet (6 sources) take 1 tablet by waldemar th once daily folic acid (Folvite) 1 MG tablet Take 1 mg by mouth 1 (one) time each day at the same time Active Completed/Discontinued Medications Medication Drug Class(es) Dates Sig (Normalized) Sig (Original) Vit-Fe Fumarate-FA ( Vitamins) 28-0.8 MG tablet (10 sources) Start: 04-05-2024 End: 05-08-2024 take 1 tablet by mouth once daily Vit-Fe Fumarate-FA ( Vitamins) 28-0.8 MG tablet Indications: , unspecified gestational age Take 1 tablet by mouth Daily 30 tablet 11 04/05/2024 05/08/2024 Discontinued Start: 04-05-2024 End: 04-05-2025 take 1 tablet by mouth once daily Vit-Fe Fumarate-FA ( Vitamins) 28-0.8 MG tablet Indications: , unspecified gestational age Take 1 tablet by mouth Daily 30 tablet 11 04/05/2024 04/05/2025 Active Start: 10-13-2023 take 1 tablet by waldemar th once daily Vit-Fe Fumarate-FA ( Vitamins) 28-0.8 MG tablet Indications: care, antepartum TAKE 1 TABLET BY MOUTH DAILY AT THE SAME TIME EACH DAY 30 tablet 3 10/13/2023 Active Problems Active Problems Problem Classification Problem Date Documented Date Episodic/Chronic Genitourinary congenital anomalies (1 source) Congenital malformation of uterus and cervix, unspecified; Translations: [CONGEN MALFORMATION UTERUS CERV UNS] Onset: 06-14-2022 Chronic Immunizations and screening for infectious disease (5 sources) Encounter for screening for human papillomavirus (HPV); Translations: [Encounter for screening for infections with a predominantly sexual mode of transmission] Onset: 11-25-2021 06-11-2024 Episodic Malposition; malpresentation (4 sources) Maternal care for [...] SHORTENING UNS TRIMESTER] Onset: 04-29-2022 Episodic Other female genital disorders (2 sources) Vaginal discharge; Translations: [Other specified noninflammatory disorders of vagina] 06-11-2024 Episodic Other and delivery including normal (20 [...] conditions (not mental disorders or infectious disease) (15 sources) Encounter for screening for diabetes mellitus; [...] WEEKS GESTATION OF ] Onset: 04-30-2022 Episodic Residual codes; unclassified (2 sources) Gestation period, 13 weeks; Translations: [13 weeks gestation of ] 05-08-2024 Episodic Residual codes; unclassified (2 sources) Gestation period, 18 weeks; Translations: [18 weeks gestation of ] 06-11-2024 Episodic Unclassified (1 source) CONTACT W/AND (SUSP) EXPOS COVID-19; Translations: [CONTACT W/AND (SUSP) EXPOS COVID-19] Onset: 06-14-2022 Unclassified (7 sources) OB Reminders Onset: 04-23-2024 04-23-2024 Past or Other Problems Problem Classification Problem Date Documented Date Episodic/Chronic Hemorrhage during ; abruptio placenta; placenta previa (4 sources) Hemorrhage in early , unspecified; Translations: [HEMORRHAGE EARLY UNS] Onset: 11-02-2021 Episodic Other female genital disorders (1 source) [...] Test Name Value Interpretation Reference Range Facility RECURRENT VAGINITIS (HTRX)on 06-13-2024 ATOPOBIUM VAGINAE 30.301 Abnormal [facility] ATOPOBIUM VAGINAE Detected Abnormal [facility] BVAB 2,3 (BACTERIAL VAGINOSIS ASSOCIATED BACTERIA 2, 3); MOBILUNCUS SPP 0 [facility] BVAB 2,3 (BACTERIAL VAGINOSIS ASSOCIATED BACTERIA 2, 3); MOBILUNCUS SPP Not detected [facility] KAROL ALBICANS, PARAPSILOSIS, TROPICALIS 0 [facility] KAROL ALBICANS, PARAPSILOSIS, TROPICALIS Not detected [facility] KAROL GLABRATA 0 [facility] KAROL GLABRATA Not detected [facility] KAROL KRUSEI 0 [facility] KAROL KRUSEI Not detected [facility] CHLAMYDIA TRACHOMATIS 0 [facility] CHLAMYDIA TRACHOMATIS Not detected [facility] GARDNERELLA VAGINALIS 21.1 Abnormal [facility] GARDNERELLA VAGINALIS Detected Abnormal [facility] Interpretation and review of laboratory results Abnormal [facility] MEGASPHAERA (TYPES 1, 2) 0 [facility] MEGASPHAERA (TYPES 1, 2) Not detected [facility] MYCOPLASMA GENITALIUM 0 [facility] MYCOPLASMA GENITALIUM Not detected [facility] NEISSERIA GONORRHOEAE 0 [facility] NEISSERIA GONORRHOEAE Not detected [facility] TRICHOMONAS VAGINALIS 0 [facility] TRICHOMONAS VAGINALIS Not detected [facility] Urinalysis macro (dipstick) panel (U)on 06-11-2024 Bilirubin, UA Negative Negative - 4(70) +++ mg/dL [facility] Blood, UA Negative Negative - 50 Yang/mcL [facility] Clarity, UA Clear [facility] Color, UA Yellow [facility] Glucose, UA Negative Negative - 1999(110) ++++ mg/dL [facility] Interpretation and review of laboratory results Normal [facility] Ketones, UA Negative Negative - 160(16) ++++ mg/dL [facility] Leukocytes, UA Negative Negative - 500+++ Derik/mcL [facility] Nitrite, UA Negative Negative - Positive [facility] pH, UA 5.5 5 - 9 [facility] Protein, UA Negative Negative - 1999(20) ++++ mg/dL [facility] Spec Grav, UA 1.02 1 - 1.03 [facility] Urobilinogen, UA 1.0 0.2 - 12 mg/dL [facility] Urinalysis macro (dipstick) panel (U)on 05-08-2024 Bilirubin, UA Negative Negative - 4(70) +++ mg/dL [facility] Blood, UA Positive Negative - 50 Yang/mcL [facility] Comment on above: trace-intact Clarity, UA Clear [facility] Color, UA Yellow [facility] Glucose, UA Negative Negative - 1999(110) ++++ mg/dL [facility] Interpretation and review of laboratory results Abnormal [facility] Ketones, UA Negative Negative - 160(16) ++++ mg/dL [facility] Leukocytes, UA Negative Negative - 500+++ Derik/mcL [facility] Nitrite, UA Negative Negative - Positive [facility] pH, UA 6 5 - 9 [facility] Protein, UA Negative Negative - 1999(20) ++++ mg/dL [facility] Spec Grav, UA 1.025 1 - 1.03 [facility] Urobilinogen, UA 0.2 0.2 - 12 mg/dL [facility] CBC AUTO DIFFon 06-05-2022 BASO # 0.0 103/ul Normal 0.0-0.1 [facility] Comment on above: Performed By: #### C BC #### [facility] [address] [address] [address] Sandi Michelle Basophils/100 WBC (Bld) 0.2 % Normal 0.2-2.0 [facility] Comment on above: Performed By: #### C BC #### [facility] [address] [address] [address] Sandi Michelle EO # 0.0 103/ul Normal 0.0-0.7 [facility] Comment on above: Performed By: #### C BC #### [facility] [address] [place] [address] Dr. Sandi Michelle Eosinophils/100 WBC (Bld) 0.2 % Critically low 0.9-7.0 [facility] Comment on above: Performed By: #### C BC #### [facility] [address] [place] [address] Dr. Sandi Michelle Erythrocyte distribution width (RBC) [Ratio] 14.3 % Normal 11.0-15.0 [facility] Comment on above: Performed By: #### C BC #### [facility] [address] [place] [address] Dr. Sandi Michelle Hematocrit (Bld) [Volume fraction] 27.3 % Critically low 36.0-48.0 [facility] Comment on above: Performed By: #### C BC #### [facility] [address] [place] [address] Dr. Sandi Michelle Hemoglobin (Bld) [Mass/Vol] 9.3 g/dL Critically low 12.0-16.0 [facility] Comment on above: Result Comment: DELI VERY Performed By: #### C BC #### [facility] [address] [place] [address] Dr. Sandi Michelle IG # 0.14 10e3/ul Critically high 0.00-0.03 [facility] Comment on above: Performed By: #### C BC #### [facility] [address] [place] [address] Dr. Sandi Michelle IG % 1.1 % Critically high 0.0-0.5 [facility] Comment on above: Performed By: #### C BC #### [facility] [address] [place] [address] Dr. Sandi Michelle LYMPH # 1.6 103/ul Normal 1.2-3.8 [facility] Comment on above: Performed By: #### C BC #### [facility] [address] [place] [address] Dr. Sandi Michelle Lymphocytes/100 WBC (Bld) 12.1 % Critically low 20.5-60.0 [facility] Comment on above: Performed By: #### C BC #### [facility] [address] [place] [address] Dr. Sandi Michelle MANUAL DIFF REQ NO Normal [facility] Comment on above: Performed By: #### C BC #### [facility] [address] [place] [address] Dr. Sandi Michelle MCH (RBC) [Entitic mass] 31.8 pg Normal 26.7-34.0 [facility] Comment on above: Performed By: #### C BC #### [facility] [address] [place] [address] Dr. Sandi Michelle MCHC (RBC) [Mass/Vol] 34.1 g/dL Normal 29.9-35.2 [facility] Comment on above: Performed By: #### C BC #### [facility] [address] [place] [address] Dr. Sandi Michelle MCV (RBC) [Entitic vol] 93.5 fL Normal 81.0-99.0 [facility] Comment on above: Performed By: #### C BC #### [facility] [address] [place] [address] Dr. Sandi Michelle MONO # 0.9 103/ul Critically high 0.3-0.8 [facility] Comment on above: Performed By: #### C BC #### [facility] [address] [place] [address] Dr. Sandi Michelle Monocytes/100 WBC (Bld) 6.8 % Normal 1.7-12.0 [facility] Comment on above: Performed By: #### C BC #### [facility] [address] [place] [address] Dr. Sandi Michelle NEUT # 10.3 103/ul Critically high 1.4-6.5 [facility] Comment on above: Performed By: #### C BC #### [facility] [address] [place] [address] Dr. Sandi Michelle Neutrophils/100 WBC (Bld) 79.6 % Critically high 43.0-75.0 [facility] Comment on above: Performed By: #### C BC #### [facility] [address] [place] [address] Dr. Sandi Michelle Platelet mean volume (Bld) [Entitic vol] 9.8 fL Normal 9.5-13.5 [facility] Comment on above: Performed By: #### C BC #### [facility] [address] [place] [address] Dr. Sandi Michelle PLT 138 103/ul Critically low 150-450 [facility] Comment on above: Performed By: #### C BC #### [facility] [address] [place] [address] Dr. Sandi Michelle RBC 2.92 106/ul Critically low 4.20-5.40 [facility] Comment on above: Performed By: #### C BC #### [facility] [address] [place] [address] Dr. Sandi Michelle WBC 12.9 103/ul Critically high 4.0-11.0 [facility] Comment on above: Performed By: #### C BC #### [facility] [address] [place] [address] Dr. Sandi Michelle CBC AUTO DIFFon 06-04-2022 BASO # 0.0 103/ul Normal 0.0-0.1 [facility] Comment on above: Performed By: #### C BC #### [facility] [address] [place] [address] Dr. Sandi Michelle Basophils/100 WBC (Bld) 0.3 % Normal 0.2-2.0 [facility] Comment on above: Performed By: #### C BC #### [facility] [address] [place] [address] Dr. Sandi Michelle EO # 0.0 103/ul Normal 0.0-0.7 [facility] Comment on above: Performed By: #### C BC #### [facility] [address] [place] [address] Dr. Sandi Michelle Eosinophils/100 WBC (Bld) 0.1 % Critically low 0.9-7.0 [facility] Comment on above: Performed By: #### C BC #### [facility] [address] [place] [address] Dr. Sandi Michelle Erythrocyte distribution width (RBC) [Ratio] 14.4 % Normal 11.0-15.0 [facility] Comment on above: Performed By: #### C BC #### [facility] [address] [place] [address] Dr. Sandi Michelle Hematocrit (Bld) [Volume fraction] 37.2 % Normal 36.0-48.0 [facility] Comment on above: Performed By: #### C BC #### [facility] [address] [place] [address] Dr. Sandi Michelle Hemoglobin (Bld) [Mass/Vol] 12.9 g/dL Normal 12.0-16.0 [facility] Comment on above: Performed By: #### C BC #### [facility] [address] [place] [address] Dr. Sandi Michelle IG # 0.23 10e3/ul Critically high 0.00-0.03 [facility] Comment on above: Performed By: #### C BC #### [facility] [address] [place] [address] Dr. Sandi Michelle IG % 1.6 % Critically high 0.0-0.5 [facility] Comment on above: Performed By: #### C BC #### [facility] [address] [place] [address] Dr. Sandi Michelle LYMPH # 2.3 103/ul Normal 1.2-3.8 [facility] Comment on above: Performed By: #### C BC #### [facility] [address] [place] [address] Dr. Sandi Michelle Lymphocytes/100 WBC (Bld) 16.0 % Critically low 20.5-60.0 [facility] Comment on above: Performed By: #### C BC #### [facility] [address] [place] [address] Dr. Sandi Michelle MANUAL DIFF REQ NO Normal [facility] Comment on above: Performed By: #### C BC #### [facility] [address] [place] [address] Dr. Sandi Michelle MCH (RBC) [Entitic mass] 32.3 pg Normal 26.7-34.0 [facility] Comment on above: Performed By: #### C BC #### [facility] [address] [place] [address] Dr. Sandi Michelle MCHC (RBC) [Mass/Vol] 34.7 g/dL Normal 29.9-35.2 [facility] Comment on above: Performed By: #### C BC #### [facility] [address] [place] [address] Dr. Sandi Michelle MCV (RBC) [Entitic vol] 93.0 fL Normal 81.0-99.0 [facility] Comment on above: Performed By: #### C BC #### [facility] [address] [place] [address] Dr. Sandi Michelle MONO # 0.8 103/ul Normal 0.3-0.8 [facility] Comment on above: Performed By: #### C BC #### [facility] [address] [place] [address] Dr. Sandi Michelle Monocytes/100 WBC (Bld) 5.8 % Normal 1.7-12.0 [facility] Comment on above: Performed By: #### C BC #### [facility] [address] [place] [address] Dr. Sandi Michelle NEUT # 10.7 103/ul Critically high 1.4-6.5 [facility] Comment on above: Performed By: #### C BC #### [facility] [address] [place] [address] Dr. Sandi Michelle Neutrophils/100 WBC (Bld) 76.2 % Critically high 43.0-75.0 [facility] Comment on above: Performed By: #### C BC #### [facility] [address] [place] [address] Dr. Sandi Michelle Platelet mean volume (Bld) [Entitic vol] 10.9 fL Normal 9.5-13.5 [facility] Comment on above: Performed By: #### C BC #### [facility] [address] [address] [address] Sandi Michelle PLT 194 103/ul Normal 150-450 [facility] Comment on above: Performed By: #### C BC #### [facility] [address] [address] [address] Sandi Michelle RBC 4.00 106/ul Critically low 4.20-5.40 [facility] Comment on above: Performed By: #### C BC #### [facility] [address] [address] [address] Sandi Michelle WBC 14.0 103/ul Critically high 4.0-11.0 [facility] Comment on above: Performed By: #### C BC #### [facility] [address] [address] [address] Sandi Michelle Covid-19 PCR (CVDTB)on 05-25 SARS-CoV-2 (COVID-19) RNA ALETHEA+probe Ql (Unsp spec) Not detected Normal NOT DETECTED [facility] Comment on above: Result Comment: When [...] for this test is supported by the [employer] of Health and Human Service's declaration that [...] be used). Performed By: #### C VDTBH ####[facility] [address] [address]Dr. Sandi Michelle DRUG SCREEN RAPID (URINE)on 06-04-2022 AMP Negative Normal NEGATIVE [facility] Comment on above: Performed By: #### D RUGRPD ####[facility] [address] [address]Dr. Sanjuanitasonia Miguel Angel BAR Negative Normal NEGATIVE [facility] Comment on above: Performed By: #### D RUGRPD ####[facility] [address] [address]Dr. Sandi Michelle BUP Negative Normal NEGATIVE [facility] Comment on above: Performed By: #### D RUGRPD ####[facility] [address] [place], [place] [address]Dr. Sandi Michelle BZO Negative Normal NEGATIVE [facility] Comment on above: Performed By: #### D RUGRPD ####[facility] [address] [place], [place] [address]Dr. Sandi Michelle NINO Negative Normal NEGATIVE [facility] Comment on above: Performed By: #### D RUGRPD ####[facility] [address] [place], [place] [address]Dr. Sandi Michelle CUT-OFFS SEE BELOW Normal [facility] Comment on above: Result Comment: AMP (Amphetamine): 500ng/mL, BAR (Barbituates): 200 ng/mL, BZO (Benzodiazepines): 150 ng/mL, BUP (Buprenorphine): 10 ng/mL, NINO (Cocaine): 150 ng/mL, mAMP (Methamphetamine): 500 ng/mL, MTD (Methadone): 200 ng/mL, OPI (Opiates): 100 ng/mL, OXY (Oxycodone): 100 ng/mL, PCP (Phencyclidine): 25 ng/mL, PPX (Propoxyphene): 300 ng/mL, THC (Cannabinoids): 50 ng/mL, TCA (Trycyclic Antidepressants): 300 ng/mL Performed By: #### D RUGRPD ####[facility] [address] [place], [place] [address]Dr. Sandi Michelle DRUG CUT HEADER DRUG CLASS TEST SYSTEM CUT-OFF CONCENTRATIONS ARE FOLLOWS: Normal [facility] Comment on above: Performed By: #### D RUGRPD ####[facility] [address] [id number]. Yisonia iMchelle mAMP Negative Normal NEGATIVE [facility] Comment on above: Performed By: #### D RUGRPD ####[facility] [address] [place], [place] [address]Xi. Yilan Michelle MTD Negative Normal NEGATIVE [facility] Comment on above: Performed By: #### D RUGRPD ####[facility] [address] [id number]. Yilan Michelle OPI Negative Normal NEGATIVE [facility] Comment on above: Performed By: #### D RUGRPD ####[facility] [address] [address]Dr. Yilan Michelle OXY Negative Normal NEGATIVE [facility] Comment on above: Performed By: #### D RUGRPD ####[facility] [address] [place], [place] [address]Dr. Yilan Michelle PCP Negative Normal NEGATIVE [facility] Comment on above: Performed By: #### D RUGRPD ####[facility] [address] [place], [place] [address]Dr. Yilan Michelle PPX Negative Normal NEGATIVE The [facility] Comment on above: Performed By: #### D RUGRPD ####[facility] [address] [place] [address]Dr. Yilan Michelle TCA Negative Normal NEGATIVE [facility] Comment on above: Performed By: #### D RUGRPD ####[facility] [address] [place] [id number]. Yilan Michelle THC Negative Normal NEGATIVE [facility] Comment on above: Performed By: #### D RUGRPD ####[facility] [address] [place], [place] [address]Dr. Yilan Michelle TYPE AND SCREENon 06-04-2022 TYPE AND SCREEN Negative Normal [facility] Comment on above: Performed By: #### T NS ####[facility] T[address] [place], [place] [address]Dr. Sandi Michelle PREG BIOPHY W NON STRESSo n 05-30-2022 [...] RIGO FISCHER Date: 2022-05-30 08:30 Normal [facility] GROUP B STREP CULTUREon S. agalactiae Ag Ql (Unsp spec) Culture Observations: NEGATIVE FOR GROUP B STREPTOCOCCUS. Normal [facility] Comment on above: Performed By: #### G BSCX ####[facility] [address] [place] [id number]. Sandi Michelle PREG BIOPHY W NON STRESSo n 05-23-2022 [...] by: RIGO FISCHER Date: 2022-05-23 09:41 Normal [facility] US PREG BIOPHY W NON STRESSo [...] RIGO FISCHER Date: 2022-05-16 16:10 Normal [facility] US PREG GROWTHon 05-11-2022 US PREG GROWTH EXAMINATION: US PREG GROWTH, US PREG CERVICAL LENGTH HISTORY: Excessive growth affecting management of mother COMPARISON: Ultrasound growth 04/27/2022 FINDINGS: Heart Rate: 137.8 bpm (accession [id number]), 167.3 bpm (accession [id number]) Number: 1.0 Position: BREECH Amniotic Fluid Volume: [...] TIFF URIBE Date: 2022-05-11 19:19 Normal [facility] US PREG GROWTHon 04-27-2022 US PREG [...] TIFF URIBE Date: 2022-04-27 20:51 Normal [facility] GLUCOSE - 1HRon 03-15-2022 Glucose [Mass/Vol] 137 mg/dL Critically high 74-106 T [facility] Comment on above: Performed By: #### C BC #### [facility] [address] [place] [address] Dr. Sandi Michelle HEMOGRAM AND PLATELon 2021 Hematocrit (Bld) [Volume fraction] 34.9 % Critically low 36.0-48.0 [facility] Comment on above: Performed By: #### C BC #### [facility] [address] [place] [address] Dr. Sandi Michelle Hemoglobin (Bld) [Mass/Vol] 11.5 g/dL Critically low 12.0-16.0 [facility] Comment on above: Performed By: #### C BC #### [facility] [address] [address] [address] Sandi Michelle MCH (RBC) [Entitic mass] 31.8 pg Normal 26.7-34.0 [facility] Comment on above: Performed By: #### C BC #### [facility] [address] [place] [address] Dr. Sandi Michelle MCHC (RBC) [Mass/Vol] 33.0 g/dL Normal 29.9-35.2 [facility] Comment on above: Performed By: #### C BC #### [facility] [address] [address] [address] Sandi Michelle MCV (RBC) [Entitic vol] 96.4 fL Normal 81.0-99.0 [facility] Comment on above: Performed By: #### C BC #### [facility] [address] [address] [address] Sandi Michelle PLT 225 103/ul Normal 150-450 [facility] Comment on above: Performed By: #### C BC #### [facility] [address] [address] [address] Sandi Michelle RBC 3.62 106/ul Critically low 4.20-5.40 [facility] Comment on above: Performed By: #### C BC #### [facility] [address] [address] [address] Sandi Michelle WBC 12.9 103/ul Critically high 4.0-11.0 [facility] Comment on above: Performed By: #### C BC #### [facility] [address] [address] [address] Sandi Michelle CHLAMYDIA/GONOCOCCUS ALETHEA (SW AB/URINE/PAPon 02-04-2022 Chlamydia trachomatis, ALETHEA Negative Normal Negative [facility] Comment on above: Performed By: #### C T/NGNA #### [facility] [address] [place] [address] Dr. Sandi Michelle Neisseria gonorrhoeae, ALETHEA Negative Normal Negative [facility] Comment on above: Performed By: #### C T/NGNA #### [facility] [address] [address] [address] Sandi Michelle PAP ACOG PANEL 2: 30 to 65on 02-04-2022 . . Normal [facility] Comment on above: Result Comment: Perf ormed at: WB Performed By: #### 4 [id number] ####[facility] [address] [place] [address]Dr. Sandi Michelle Age Gdln ACOG Testing 30-65 Normal [facility] Comment on above: Performed By: #### 4 [id number] ####[facility] [address] [place] [id number]. Sandi Michelle DIAGNOSIS: Comment Normal [facility] Comment on above: Result Comment: NEGA TIVE FOR INTRAEPITHELIAL LESION OR MALIGNANCY. Performed at: WB Performed By: #### 4 [id number] ####[facility] [address] [place] [id number]. Sandi Michelle HPV Aptima Negative Normal Negative [facility] Comment on above: Result Comment: This nucleic acid amplification test detects fourteen high-risk HPV types (16,18,31,33,35,39,45,51,52,56,58,59,66,68) without differentiation. Performed at: =G Performed By: #### 4 [id number] ####[facility] [address] [place], [place] [address]Dr. Sandi Michelle Methodology: Comment Normal [facility] Comment on above: Result Comment: This liquid based ThinPrep(R) pap test was screened with the use of an image guided system. Performed at: WB Performed By: #### 4 [id number] ####[facility] [address] [place], [place] [address]Dr. Sandi Michelle Note: Comment Normal [facility] Comment on above: Result Comment: The Pap smear is a screening test designed to aid in the detection of premalignant and malignant conditions of the uterine cervix. It is not a diagnostic procedure and should not be used as the sole means of detecting cervical cancer. Both false-positive and false-negative reports do occur. . Performed at: WB Performed By: #### 4 [id number] ####[facility] [address] [place] [id number]. Sandi Michelle Performed by: Comment Normal [facility] Comment on above: Result Comment: Vikas Mcclellan, Headlight Assembler (ASCP) Performed at: WB Performed By: #### 4 [id number] ####[facility] [address] [place] [id number]. Sandi Michelle Specimen adequacy: Comment Normal [facility] Comment on above: Result Comment: Sati sfactory for evaluation. No endocervical component is identified. Performed at: WB Performed By: #### 4 [id number] ####[facility] [address] [place], [place] [address]Wc. Sandi Michelle VAGINITIS/VAGINOSIS DNA PROB Nicholas 02-03-2022 Karol species Negative Normal Negative [facility] Comment on above: Performed By: #### V AGINT ####[facility] [address] [place] [address]Dr. Sandi Michelle Gardnerella vaginalis Negative Normal Negative [facility] Comment on above: Performed By: #### V AGINT ####[facility] [address] [place] [address]Dr. Sandi Michelle Trichomonas vaginalis Negative Normal Negative [facility] Comment on above: Performed By: #### V AGINT ####[facility] [address] [place] [address]Dr. Sandi Michelle US PREG ANATOMY SINGLEon US PREG [...] RIGO FISCHER Date: 2022-02-01 19:32 Normal [facility] AFP MATERNAL FOR SPINA BIFID Aon 01-21-2022 AFP MoM 1.24 Normal [facility] Comment on above: Performed By: #### A FPMAT ####[facility] [address] [place] [address]Dr. Sandi [facility] AFP Value 55.2 ng/mL Normal [facility] Comment on above: Performed By: #### A FPMAT ####[facility] [address] [place], [place] [address]Kz. Sandi Michelle AFP, Serum for Spina Bifida Report Normal [facility] Comment on above: Performed By: #### A FPMAT ####[facility] [address] [place] [address]Dr. Sandi Michelle Comment Comment Normal [facility] Comment on above: Result Comment: Iesha Sullivan, Ph.D., [facility] Director . References: Available Upon Request. . Multiples Of Median Cutoffs For AFP Elevations Bhandari 2.5 Black 2.8 IDD 2.0 Twins 4.5 Abbreviation Definitions IDD - Insulin Dep Diabetes OSBR - Open Spina Bifida Risk . For further inquiries contact [employer] at [phone]. . This test was developed and its performance characteristics determined by [employer]. It has not been cleared or approved by the Food and Drug Administration. Performed By: #### A FPMAT ####[facility] [address] [place] [id number]. Sandi Michelle Gest Age Collection Date 18.1 weeks Normal [facility] Comment on above: Performed By: #### A FPMAT ####[facility] [address] [place] [address]Dr. Sandi Michelle Gestat, Age Based on JOSE Normal [facility] Comment on above: Result Comment: 05/26 Recalculations are not recommended when gestational dating by LMP and ultrasound are within 10 days. Performed By: #### A FPMAT ####[facility] [address] [place], [place] [address]Hp. Sandi Michelle Insulin Dep Diabetes Comment Normal [facility] Comment on above: Result Comment: Not provided. . Performed By: #### A FPMAT ####[facility] [address] [place], [place] [address]Li. Sandi Michelle Interpretation Comment Normal [facility] Comment on above: Result Comment: Inte [...] Customer Services to discuss available options. The [place] [employer] recommends amniocentesis be offered to women age 35 and older. Performed By: #### A FPMAT ####[facility] [address] [place] [address]Dr. Sandi Michelle [age] Normal [facility] Comment on above: Performed By: #### A FPMAT ####[facility] [address] [place], [place] [address]Vq. Sandi Michelle Multiple Gestation No Normal [facility] Comment on above: Performed By: #### A FPMAT ####[facility] [address] [place], [place] [address]Ep. Sandi Michelle OSBR Risk 1 [place] [address] [facility] Comment on above: Performed By: #### A FPMAT ####[facility] [address] [place], [place] [address]Ty. Sandi Michelle PDF . Normal [facility] Comment on above: Performed By: #### A FPMAT ####[facility] [address] [place] [address]Dr. Sandi Michelle Race Normal [facility] Comment on above: Performed By: #### A FPMAT ####[facility] [address] [place] [address]DrDen Michelle Test Results: Negative Normal [facility] Comment on above: Performed By: #### A FPMAT ####[facility] [address] [place] [address]Dr. Sandi Michelle HEP B SURFACE ANTIGEN SCREEN on 11-22-2021 HBsAg Screen Negative Normal Negative [facility] Comment on above: Performed By: #### H BSANS ####[facility] [address] [place] [address]Dr. Sandi Michelle HEPATITIS C VIRUS AB W/ REFL EX QUANTon 11-22-2021 HCV AB 0.1 s/co ratio Normal 0.0-0.9 [facility] Comment on above: Performed By: #### C BC #### [facility] [address] [address] [address] Sandi Michelle Interpretation: Comment Normal [facility] Comment on above: Result Comment: Nega tive Not infected with HCV, unless recent infection is suspected or other evidence exists to indicate HCV infection. Performed By: #### C BC #### [facility] [address] [address] [address] Sandi Michelle HIV 1 AND 2 WITH REFLEXon HIV Screen 4th Generation wRfx Non-Reactive Normal Non Reactive [facility] Comment on above: Result Comment: HIV Negative HIV-1/HIV-2 antibodies and HIV-1 p24 antigen were NOT detected. There is no laboratory evidence of HIV infection. Performed By: #### H IV12 ####[facility] [address] [place] [address]DrDen Michelle RPR QUANTon 11-22-2021 Rapid Plasma Reagin, Quant Non-Reactive Normal NonRea<1:1 [facility] Comment on above: Result Comment: Plea se Note: This test does not meet current guidelines for screening and diagnosis of syphilis. This test is intended for following treatment response in patients being treated for syphilis infection. To screen for syphilis infection, a reflex cascade that includes both RPR and a treponema-specific assay should be utilized, such as Treponema pallidum (Syphilis) Screening [place] (438073) or Rapid Plasma Reagin (RPR) Test With Reflex to Quantitative RPR and Confirmatory Treponema pallidum Antibodies (809745). Performed By: #### C BC #### [facility] [address] [place] [address] Dr. Sandi Michelle RUBELLA AB IGGon 11-22-2021 Rubella Antibodies, IgG 9.33 index Normal Immune >0.99 [facility] Comment on above: Result Comment: Non- immune <0.90 Equivocal 0.90 - 0.99 Immune >0.99 Performed By: #### C BC #### [facility] [address] [place] [address] Dr. Sandi Michelle CBC AUTO DIFFon 11-21-2021 BASO # 0.0 103/ul Normal 0.0-0.1 [facility] Comment on above: Performed By: #### C BC #### [facility] [address] [place] [address] Dr. Sandi Michelle Basophils/100 WBC (Bld) 0.4 % Normal 0.2-2.0 [facility] Comment on above: Performed By: #### C BC #### [facility] [address] [place] [address] Dr. Sandi Michelle EO # 0.1 103/ul Normal 0.0-0.7 [facility] Comment on above: Performed By: #### C BC #### [facility] [address] [place] [address] Dr. Sandi Michelle Eosinophils/100 WBC (Bld) 0.6 % Critically low 0.9-7.0 [facility] Comment on above: Performed By: #### C BC #### [facility] [address] [place] [address] Dr. Sandi Michelle Erythrocyte distribution width (RBC) [Ratio] 11.9 % Normal 11.0-15.0 [facility] Comment on above: Performed By: #### C BC #### [facility] [address] [place] [address] Dr. Sandi Michelle Hematocrit (Bld) [Volume fraction] 37.1 % Normal 36.0-48.0 [facility] Comment on above: Performed By: #### C BC #### [facility] [address] [place] [address] Dr. Sandi Michelle Hemoglobin (Bld) [Mass/Vol] 12.2 g/dL Normal 12.0-16.0 [facility] Comment on above: Performed By: #### C BC #### [facility] [address] [place] [address] Dr. Sandi Michelle IG # 0.03 10e3/ul Normal 0.00-0.03 [facility] Comment on above: Performed By: #### C BC #### [facility] [address] [place] [address] Dr. Sandi Michelle IG % 0.4 % Normal 0.0-0.5 [facility] Comment on above: Performed By: #### C BC #### [facility] [address] [place] [address] Dr. Sandi Michelle LYMPH # 1.8 103/ul Normal 1.2-3.8 [facility] Comment on above: Performed By: #### C BC #### [facility] [address] [place] [address] Dr. Sandi Michelle Lymphocytes/100 WBC (Bld) 23.4 % Normal 20.5-60.0 [facility] Comment on above: Performed By: #### C BC #### [facility] [address] [place] [address] Dr. Sandi Michelle MANUAL DIFF REQ NO Normal [facility] Comment on above: Performed By: #### C BC #### [facility] [address] [place] [address] Dr. Sandi Michelle MCH (RBC) [Entitic mass] 31.4 pg Normal 26.7-34.0 [facility] Comment on above: Performed By: #### C BC #### [facility] [address] [address] [address] Sandi Michelle MCHC (RBC) [Mass/Vol] 32.9 g/dL Normal 29.9-35.2 [facility] Comment on above: Performed By: #### C BC #### [facility] [address] [place] [address] Dr. Sandi Michelle MCV (RBC) [Entitic vol] 95.6 fL Normal 81.0-99.0 [facility] Comment on above: Performed By: #### C BC #### [facility] [address] [place] [address] Dr. Sandi Michelle MONO # 0.5 103/ul Normal 0.3-0.8 [facility] Comment on above: Performed By: #### C BC #### [facility] [address] [place] [address] Dr. Sandi Michelle Monocytes/100 WBC (Bld) 6.6 % Normal 1.7-12.0 [facility] Comment on above: Performed By: #### C BC #### [facility] [address] [place] [address] Dr. Sandi Michelle NEUT # 5.4 103/ul Normal 1.4-6.5 [facility] Comment on above: Performed By: #### C BC #### [facility] [address] [place] [address] Dr. Sandi Michelle Neutrophils/100 WBC (Bld) 68.6 % Normal 43.0-75.0 [facility] Comment on above: Performed By: #### C BC #### [facility] [address] [place] [address] Dr. Sandi Michelle Platelet mean volume (Bld) [Entitic vol] 10.1 fL Normal 9.5-13.5 [facility] Comment on above: Performed By: #### C BC #### [facility] [address] [place] [address] Dr. Sandi Michelle PLT 237 103/ul Normal 150-450 [facility] Comment on above: Performed By: #### C BC #### [facility] [address] [place] [address] Dr. Sandi Michelle RBC 3.88 106/ul Critically low 4.20-5.40 [facility] Comment on above: Performed By: #### C BC #### [facility] [address] [address] [address] Sandi Michelle WBC 7.9 103/ul Normal 4.0-11.0 [facility] Comment on above: Performed By: #### C BC #### [facility] [address] [address] [address] Sandi Michelle CULTURE URINEon 11-21-2021 CULTURE URINE Culture Observations : LIGHT GROWTH OF MIXED GENITAL MENDEZ. NO POTENTIAL PATHOGENS SEEN. Normal [facility] Comment on above: Performed By: #### U RCX #### [facility] [address] [place] [address] Dr. Sandi Michelle GLYCOHEMOGLOBIN A1Con 2021 ADA RECOMMENDATION SEE BELOW Normal [facility] Comment on above: Result Comment: ADA RECOMMENDED LIMIT 4.0 - 6.0 ADA THERAPEUTIC TARGET < 7.0 ACTION SUGGESTED > 7.0 Performed By: #### A 1C ####[facility] [address] [place] [address]Dr. Sandi Michelle Glucose [Mass/Vol] 103 mg/dL Normal [facility] Comment on above: Performed By: #### A 1C ####[facility] [address] [place] [address]Dr. Sandi Michelle HbA1c (Bld) [Mass fraction] 5.2 % Normal 4.5-6.2 [facility] Comment on above: Performed By: #### A 1C ####[facility] [address] [place] [address]Dr. Sandi Michelle TYPE AND SCREENon 11-21-2021 TYPE AND SCREEN Negative Normal [facility] Comment on above: Performed By: #### T NS #### [facility] [address] [address] [address] Sandi Michelle US PREG TVon 11-03-2021 [...] TIFF URIBE Date: 2021-11-03 07:19 Normal [facility] PREG QUANT HCGon 10-14-2021 HCG QUANT 469 mIU/mL Normal [facility] Comment on above: Performed By: #### P REGQNT #### [facility] [address] [address] [address] Sandi Michelle HCG RANGE SEE BELOW Normal [facility] Comment on above: Result Comment: 5-50 0-1 WEEK 40-300 1-2 WEEKS 100-1,000 2-3 WEEKS 500-6,000 3-4 WEEKS 5,000-200,000 1-2 MONTHS 10,000-100,000 2-3 MONTHS 3,000-50,000 2ND TRIMESTER 1,000-50,000 3RD TRIMESTER Performed By: #### P REGQNT #### [facility] [address] [place] [address] Dr. Sandi Michelle PREG QUANT HCGon 10-12-2021 HCG QUANT 184 mIU/mL Normal [facility] Comment on above: Performed By: #### C BC #### [facility] [address] [address] [address] Sandi Michelle HCG RANGE SEE BELOW Normal [facility] Comment on above: Result Comment: 5-50 0-1 WEEK 40-300 1-2 WEEKS 100-1,000 2-3 WEEKS 500-6,000 3-4 WEEKS 5,000-200,000 1-2 MONTHS 10,000-100,000 2-3 MONTHS 3,000-50,000 2ND TRIMESTER 1,000-50,000 3RD TRIMESTER Performed By: #### C BC #### [facility] [address] [place], [place] [address] Dr. Sandi Michelle PROTEIN C FUNC ACTIVITYon Prt C Activity (Chromogenic) 130 % Normal [facility] Comment on above: Result Comment: Julia lux Range: 17 years and older: 73 - 180 Effective August 10, 2021 Prt C Activity, (Chromogenic) will be made non-orderable. This will not affect any profile that includes Prt C Activity (Chromogenic). [facility] offers [id number] Protein C Functional. For more information please contact your local [facility] Assistant Property Manager. Performed By: #### P RCACT ####[facility] [address] [place], [place] [address]OuDr. Sandi Michelle FACTOR V LEIDEN MUTATION CIARAN LYSISon 07-27-2021 Factor V Leiden Comment Normal [facility] Comment on above: Result Comment: Resu lt: c.1601G>A (p.[id number]) - Not Detected . This result is not associated with an increased risk for venous thromboembolism. See Additional Clinical Information and Comments. Additional Clinical Information: Venous thromboembolism is a multifactorial disease influenced by genetic, environmental, and circumstantial risk factors. The c.1601G>A (p. [id number]) variant in the F5 gene, commonly referred [...] c.*97G>A variant and Factor V Leiden (PMID: 54374290). Additional risk factors include but are not [...] health care providers to discuss results at [phone] [place] [facility] [phone] . Test Details: Variant Analyzed: c.1601G>A (p. [id number]), referred to as Factor V Leiden . [...] developed and its performance characteristics determined by [employer]. It has not been cleared or approved by the Food and Drug Administration. . References: Masoud Galloway, Hawa GUTIÉRREZ, Randy R, Moses WW, Luis A JH; ACMG Professional Practice and Guidelines Committee. Addendum: [place] [employer] consensus statement on factor V Leiden mutation testing. [place] [employer]. 2020Sep 26. doi: 10.1038/t43184-999-10594-u. PMID: 98083558. . Miriam GAMING. Factor V Leiden Thrombophilia. 1998December 05 [Updated 2017Jul 28]. In: Jv MP, Delia HH, Ian RA, et al., editors. Jovita(R) [Internet]. [place] ([place]): [facility], [place]; 5833-4809. Available from: https://www.ncbi.nlm.nih.gov/books/EJI1631/ . Jonh Galloway, Hawa GUTIÉRREZ, Francisco Javier X, Leobardo B, Ash EB, Deysi P, Mari CS; A[employer] Laboratory Supervisor Pleating Committee. Venous thromboembolism laboratory testing (factor V Leiden and factor II c.*97G>A), 2018 update: a technical standard of the [place] [employer] (ACMG). [place] [employer]. 2018 Jun;20(12):6385-9818. doi: 10.1038/e19049-365-3671-g. Epub 2017Apr 28. PMID: 10795059. . Martha Guillen, PhD, FACMG Lindsay Jaquez, PhD, FACMG Pete Brown, PhD, FACMG Geronimo Mcdaniel, PhD, FACMG W Khushbu Hays, PhD, FACMG Maureen Mancilla, PhD, FACMG Performed By: #### F VPCR ####[facility] [address] [place] [address]DrDen Michelle ANTITHROMBIN ACTIVITYon Antithrombin Activity 102 % Normal 75-135 [facility] Comment on above: Result Comment: Dire ct Xa inhibitor anticoagulants such as rivaroxaban, apixaban and edoxaban will lead to spuriously elevated antithrombin activity levels possibly masking a deficiency. Performed By: #### C BC #### [facility] [address] [address] [address] Sandi Michelle B-2 GLYCOPROTEIN AB IGGon Beta-2 Glycoprotein I Ab, IgG <9 Normal 0-20 [facility] Comment on above: Result Comment: The reference interval reflects a 3SD or 99th percentile interval, which is thought to represent a potentially clinically significant result in accordance with the International Consensus Statement on the classification criteria for definitive antiphospholipid syndrome (APS). J Thromb Haem 2006;4:295-306. Performed By: #### B 2GPG ####[facility] [address] [id number] Michelle B2-GLYCOPROTEIN 1 AB IGMon 0 07-25-2021 Beta-2 Glycoprotein I Ab, IgM <9 Normal 0-32 [facility] Comment on above: Result Comment: The reference interval reflects a 3SD or 99th percentile interval, which is thought to represent a potentially clinically significant result in accordance with the International Consensus Statement on the classification criteria for definitive antiphospholipid syndrome (APS). J Thromb Haem 2006;4:295-306. Performed By: #### B GLYIGM ####[facility] [address] [id number]. Sandi Michelle LUPUS ANTICOAGULANT W/REFLEX on 07-24-2021 aPTT Coag (Bld) [Time] 30.9 s Normal 0.0-51.9 [facility] Comment on above: Performed By: #### L UPUSRF ####[facility] [address] [address]Dr. Sandi Michelle dRVVT 33.0 sec Normal 0.0-47.0 [facility] Comment on above: Performed By: #### L UPUSRF ####[facility] [address] [address]Dr. Sandi Michelle Interpretation Comment: Normal [facility] Comment on above: Result Comment: No l upus anticoagulant was detected. Performed By: #### L UPUSRF ####[facility] [address] [address]Dr. Sandi Michelle PROTEIN S ANTIGENon 07-24-20 21 Protein S, Free 104 % Normal 61-136 [facility] Comment on above: Performed By: #### P RTSAG ####[facility] [address] [address]Dr. Sandi Michelle Protein S, Total 90 % Normal 60-150 [facility] Comment on above: Result Comment: This test was developed and its performance characteristics determined by [employer]. It has not been cleared or approved by the Food and Drug Administration. Performed By: #### P RTSAG ####[facility] [address] [address]Dr. Sandi Michelle PROTEIN S, FUNCTIONALon 12-3 Protein S-Functional 107 % Normal 63-140 [facility] Comment on above: Result Comment: Prot ein S activity may be falsely increased (masking an abnormal, low result) in patients receiving direct Xa inhibitor (e.g., rivaroxaban, apixaban, edoxaban) or a direct thrombin inhibitor (e.g., dabigatran) anticoagulant treatment due to assay interference by these drugs. Performed By: #### C BC #### [facility] [address], [place] [address] Dr. Sandi Michelle ANTICARDIOLIPIN AB (JEANIE) IGG on 07-23-2021 Anticardiolipin Ab,IgG,Qn <9 Normal 0-14 [facility] Comment on above: Result Comment: Nega tive: <15 Indeterminate: 15 - 20 Low-Med Positive: >20 - 80 High Positive: >80 Performed By: #### C ARDLIP #### [facility] [address], [place] [address] Dr. Sandi Michelle ANTICARDIOLIPIN AB (JEANIE) IGM on 07-23-2021 Anticardiolipin Ab,IgM,Qn 12 MPL U/mL Normal 0-12 [facility] Comment on above: Result Comment: Nega tive: <13 Indeterminate: 13 - 20 Low-Med Positive: >20 - 80 High Positive: >80 Performed By: #### C ARDIGM ####[facility] [address] [place], [place] [address]LbDr. Sandi Michelle Vital Signs Date Time Vital Sign Value Performing Clinician Facility 06-11-2024 16:44-0500 Body mass index (BMI) [Ratio] 28.59 kg/m2 Melinda Keyona DO Work Phone: [facility] 06-11-2024 16:44-0500 Body weight 80.34 kg Melinda Keyona DO Work Phone: [facility] 06-11-2024 16:44-0500 Diastolic blood pressure 70 mm[Hg] Melinda Keyona DO Work Phone: [facility] 06-11-2024 16:44-0500 Systolic blood pressure 108 mm[Hg] Melinda Keyona DO Work Phone: [facility] 05-08-2024 15:11-0400 Body mass index (BMI) [Ratio] 27.76 kg/m2 Melinda Keyona DO Work Phone: [facility] 05-08-2024 15:11-0400 Body weight 78.02 kg Melinda Keyona DO Work Phone: [facility] 05-08-2024 15:11-0400 Diastolic blood pressure 70 mm[Hg] Melinda Keyona DO Work Phone: [facility] 05-08-2024 15:11040 Systolic blood pressure 112 mm[Hg] Melinda Keyona DO Work Phone: [facility] 01-21-2022 03:06-0400 Body weight 72.[address] MELINDA RAND [facility] Comment on above: Performed By: #### A FPMAT ####[facility] [address] [place], [place] [address]UdDen Sandi Michelle Encounters Encounter Date Encounter Type Care Provider Facility Start: 06-11-2024 End: 06-12-2024 ambulatory MELINDA KEYONA Not Available Start: 06-11-2024 End: 06-12-2024 flow sheet Melinda Keyona DO Work Phone: [facility] Comment on above: Second trimester pre gnancy; 18 weeks gestation of ; Vaginal discharge; STD exposure; Screening, , for anatomic survey Start: 06-11-2024 End: 06-11-2024 Bamboo flowsheet Melinda Keyona DO Work Phone: [facility] Start: 06-11-2024 End: 06-13-2024 Bamboo flowsheet Melinda Keyona DO Work Phone: [facility] Start: 06-11-2024 End: 06-13-2024 External Result Encounter Melinda Keyona DO Work Phone: [facility] External Department Unsolicited Start: 05-08-2024 End: 05-08-2024 flow sheet Melinda Keyona DO Work Phone: [facility] Comment on above: 13 weeks gestation o f ; Second trimester Start: 05-08-2024 End: 05-08-2024 ambulatory MELINDA KEYONA Not Available Start: 05-08-2024 End: 05-08-2024 Bamboo flowsheet Melinda Keyona DO Work Phone: [facility] Start: 05-08-2024 End: 05-08-2024 Bamboo flowsheet Melinda Rand DO Work Phone: [facility] Start: 04-05-2024 End: 04-05-2024 ambulatory MELINDA RAND Not Available Start: 01-02-2024 End: 01-02-2024 ambulatory MELINDA RAND Not Available Start: 12-29-2023 End: 12-29-2023 ambulatory MELINDA RAND Not Available Start: 07-19-2023 End: 07-19-2023 ambulatory MELINDA DOWELLO Not Available Start: 06-10-2022 End: 06-10-[address] MELINDA RAND Facility:[facility] Start: 06-08-2022 Evaluation and management of inpatient DR MELINDA [...] Date Procedure Procedure Detail Performing Clinician Start: 06-11-2024 Urnls dip stick/tabl et rgnt non-auto w/o micrscp Melinda Keyona DO Work Phone: Start: 06-11-2024 RECURRENT VAGINITIS (HTRX) Melinda Keyona DO Work Phone: Start: 05-08-2024 Urnls dip stick/tabl et rgnt non-auto w/o micrscp Melinda Keyona DO Work Phone: Start: 06-04-2022 Extraction of Produc ts of Conception, Low Cervical, Open Approach DR MELINDA RAND Plan of Treatment Date Care Activity Detail Author Start: 07-31-2024 End: 07-31-2024 Patient encounter procedure 07/31/2024 1:00 PM EST Office Visit [facility] [address] [place] [address] Melinda Rand DO [address] [place] [address] [facility] Start: 07-12-2024 End: 07-12-2024 Patient encounter procedure 07/12/2024 9:50 AM EST Routine [facility] [address] [place] [address] Melinda Rand DO [address] [place] [address] [facility] Start: 06-11-2024 End: 06-11-2024 Patient encounter procedure 06/11/2024 3:50 PM EST Routine [facility] [address] [place] [id number] Melinda Rand, DO [address] [place] [address] [facility] Start: 06-11-2024 End: 12-09-2024 Alpha fetoprotein, maternal Alpha fetoprotein, maternal Lab Routine Second trimester Expected: 06/11/2024 (Approximate), Expires: 12/09/2024 [facility] Comment on above: Expected: 06/11/2024 (Approximate), Expires: 12/09/2024 Start: 06-11-2024 End: 06-11-2025 US for US OB ANATOMY SINGLE W US OB CERVICAL LENGTH Imaging Routine Screening, , for anatomic survey Expected: 06/11/2024 (Approximate), Expires: 06/11/2025 [facility] Comment on above: Expected: 06/11/2024 (Approximate), Expires: 06/11/2025 Start: 05-08-2024 End: 05-08-2024 Patient encounter procedure 05/08/2024 2:40 PM EDT Routine [facility] [address] [place] [id number] Melinda Rand, DO [address] [place] [address] Arrived [facility] Comment on above: Arrived CHLAMYDIA TRACHOMATI S (GENITO/STI) CHLAMYDIA TRACHOMATIS (GENITO/STI) Lab Routine STD exposure Ordered: 06/11/2024 [facility] Comment on above: Ordered: 06/11/2024 Neisseria gonorrhoea e DNA [Presence] in Unspecified specimen by ALETHEA with probe detection Neisseria gonorrhea DNA probe, direct Lab Routine STD exposure Ordered: 06/11/2024 [facility] Comment on above: Ordered: 06/11/2024 SURESWAB(R) ADVANCED VAGINITIS PLUS, TMA SURESWAB(R) ADVANCED VAGINITIS PLUS, TMA Pathology and Cytology Routine Vaginal discharge Ordered: 06/11/2024 [facility] [employer] Work Phone: Comment on above: Ordered: 06/11/2024 Payers Date Payer Category Payer Managed Care O (unspecified) [facility] Address: [address] [address] [id number] 1.315 1991 Unknown [id number] 2.16.840.1.008914.3.5 79.2.593 1991 Unknown [id number] 2.16.840.1.278724.3.5 79.2.593 1991 Unknown [id number] 2.16.840.1.987171.3.5 79.2.593 1991 Unknown [id number] 2.16.840.1.287064.3.5 79.2.593 1991 Unknown [id number] 2.16.840.1.543719.3.5 79.2.593 1991 Unknown [id number] 2.16.840.1.749074.3.5 79.2.593 1991 Unknown [id number] 2.16.840.1.762243.3.5 79.2.593 1991 Unknown [id number] 2.16.840.1.008160.3.5 79.2.593 1991 Unknown [id number] 2.16.840.1.622085.3.5 79.2.593 1991 Unknown [id number] 2.16.840.1.795920.3.5 79.2.593 1991 Unknown [id number] 2.16.840.1.377805.3.5 79.2.593 1991 Unknown [id number] 2.16.840.1.094967.3.5 79.2.593 1991 Unknown [id number] 2.16.840.1.164179.3.5 79.2.593 1991 Unknown [id number] 2.16.840.1.272224.3.5 79.2.593 1991 Unknown [id number] 2.16.840.1.717706.3.5 79.2.593 1991 Unknown [id number] 2.16.840.1.396617.3.5 79.2.593 1991 Unknown [id number] 2.16.840.1.428348.3.5 79.2.593 1991 Unknown [id number] 2.16.840.1.815693.3.5 79.2.593 1991 Unknown [id number] 2.16.840.1.068510.3.5 79.2.593 1991 Unknown [id number] 2.16.840.1.873001.3.5 79.2.593 1991 Unknown [id number] 2.16.840.1.772910.3.5 79.2.593 1991 Unknown [id number] 2.16.840.1.589869.3.5 79.2.1259 1991 Unknown [id number] 2.16.840.1.529856.3.5 79.2.1259 1991 Unknown [id number] 2.16.840.1.824100.3.5 79.2.1259 1991 Unknown [id number] 2.16.840.1.298089.3.5 79.2.1259 1991 Unknown [id number] 2.16.840.1.615455.3.5 79.2.1259 1991 Unknown [id number] 2.16.840.1.747168.3.5 79.2.1259 1959 Private Health Insurance [id number] Social History Date Type Detail Facility Start: 02-08-2023 Tobacco smoking stat [facility] Never smoked tobacco [facility] Start: 02-08-2023 Tobacco use and exposure Smokeless t obacco non-user [facility] Start: 04-05-2024 End: 06-11-2024 Alcoholic beverage intake Lifetime non-drinker (finding) [facility] Start: 07-19-2023 History of Social function [facility] Start: 07-19-2023 Tobacco use panel [facility] Start: 02-18-2024 [facility] Start: 1990 Sex assigned at Female [facility] Start: 02-06-2023 Gender identity Identifies as female gender (finding) [facility] Start: 02-06-2023 Sexual orientation Heterosexual (fin ding) [facility] Goals Date Patient Goal Desired Activity /State Personal health goal History of Present illness Narrative 06-11-2024 Miranda Parsons LPN - 06/11/2024 3:50 PM EST Note Date & Type Note Facility 06-11-2024 History of Presen t illness Narrative Reason for Appointment: Patient ID: Anna Law is a 34 y.o. female who presents for Well Women Visit, Routine Visit, and STI Screening Patient presents today for Return OB appointment. MEDICATIONS Current Outpatient Medications Medication Instructions folic acid (FOLVITE) 1 mg, Every 24 hours Vit-Fe Fumarate-FA ( Vitamins) 28-0.8 MG tablet TAKE 1 TABLET BY MOUTH DAILY AT THE SAME TIME EACH DAY ALLERGIES Allergies Allergen Reactions Hydrocodone-Acetaminophen GI intolerance and Unknown Other Reaction(s): other PROBLEMS Active Ambulatory Problems Diagnosis Date Noted No Active Ambulatory Problems Resolved Ambulatory Problems Diagnosis Date Noted No Resolved Ambulatory Problems Past Medical History: Diagnosis Date History of miscarriage Short cervix HISTORY PAST MEDICAL HISTORY SOCIAL HISTORY Past Medical History: Diagnosis Date History of miscarriage Short cervix Social History Tobacco Use Smoking status: Never Smokeless tobacco: Never Substance Use Topics Alcohol use: Never Drug use: Never FAMILY HISTORY Family History Problem Relation Name Age of Onset No Known Problems Brother Diabetes Maternal Grandfather Boshellie Albright Cancer Paternal Grandmother Isis Cannon Arthritis Paternal Grandmother Isis Cannon Hypertension Paternal Grandmother Isis Cannon SURGICAL HISTORY Past Surgical History: Procedure Laterality Date SECTION, LOW TRANSVERSE DILATION AND CURETTAGE OF UTERUS 07/14/2020 PAP SMEAR 05/05/2020 Normal REVIEW OF SYSTEMS Review of Systems: Review of Systems All other systems reviewed and are negative. OBJECTIVE Objective: Physical Exam Constitutional: Appearance: Normal appearance. She is well-developed. Genitourinary: Vulva normal. Cardiovascular: Rate and Rhythm: Normal rate and regular rhythm. Pulmonary: Effort: Pulmonary effort is normal. Breath sounds: Normal breath sounds. Abdominal: General: Bowel sounds are normal. There is no distension. Palpations: Abdomen is soft. Tenderness: There is no abdominal tenderness. There is no guarding or rebound. Musculoskeletal: General: No swelling. Normal range of motion. Right lower leg: No edema. Left lower leg: No edema. Neurological: Mental Status: She is alert and oriented to person, place, and time. Skin: General: Skin is warm and dry. Psychiatric: Mood and Affect: Mood normal. Behavior: Behavior normal. Vitals and nursing note reviewed. Exam conducted with a pediatrics teacher present. Vitals: Estimated body mass index is 28.59 kg/m as calculated from the following: Height as of 01/02/24: 5' 6 . Weight as of this encounter: 177 lb 1.9 oz. BP: 108/70 Patient's last menstrual period was 02/04/2024. ASSESSMENT & PLAN ICD-10-CM 1. Well woman exam with routine gynecological exam Z01.419 Pap Smear HPV DNA probe, amplified 2. Second trimester Z34.92 POCT urinalysis dipstick manually resulted Alpha fetoprotein, maternal Alpha fetoprotein, maternal 3. 18 weeks gestation of Z3A.18 POCT urinalysis dipstick manually resulted 4. Vaginal discharge N89.8 SURESWAB(R) ADVANCED VAGINITIS PLUS, TMA 5. STD exposure Z20.2 CHLAMYDIA TRACHOMATIS (GENITO/STI) Neisseria gonorrhea DNA probe, direct 6. Screening, , for anatomic survey Z36.89 US OB ANATOMY SINGLE W US OB CERVICAL LENGTH Patient presents today for a routine obstetrics appointment. Patient is currently 18w2d with a Estimated Date of Delivery: 11/10/24. Patient already had PAP smear completed previously. Obtained vaginal cultures for STD's today for routine OB care. Patient given orders for anatomy scan and MSAFP to be drawn appropriately. Patient to return to clinic in 4 weeks. Documented by Miranda Parsons LPN on behalf of: Melinda Rand DO documented in this encounter [facility] History of Present illness Narrative 05-08-2024 Tere Hu LPN - 05/08/2024 2:40 PM EDT Note Date & Type Note Facility 05-08-2024 History of Presen t illness Narrative Reason for Appointment: Patient ID: Anna Law is a 34 y.o. female who presents for Routine Visit Patient presents today for Return OB appointment. MEDICATIONS Current Outpatient Medications Medication Instructions folic acid (FOLVITE) 1 mg, Every 24 hours Vit-Fe Fumarate-FA ( Vitamins) 28-0.8 MG tablet TAKE 1 TABLET BY MOUTH DAILY AT THE SAME TIME EACH DAY ALLERGIES Allergies Allergen Reactions Hydrocodone-Acetaminophen GI intolerance and Unknown PROBLEMS Active Ambulatory Problems Diagnosis Date Noted No Active Ambulatory Problems Resolved Ambulatory Problems Diagnosis Date Noted No Resolved Ambulatory Problems Past Medical History: Diagnosis Date History of miscarriage Short cervix HISTORY PAST MEDICAL HISTORY SOCIAL HISTORY Past Medical History: Diagnosis Date History of miscarriage Short cervix Social History Tobacco Use Smoking status: Never Smokeless tobacco: Never Substance Use Topics Alcohol use: Never Drug use: Never FAMILY HISTORY Family History Problem Relation Name Age of Onset No Known Problems Brother Diabetes Maternal Grandfather Bo Heidtman Cancer Paternal Grandmother December Michela Arthritis Paternal Grandmother December Michela Hypertension Paternal Grandmother Decembersushant SURGICAL HISTORY Past Surgical History: Procedure Laterality Date SECTION, LOW TRANSVERSE DILATION AND CURETTAGE OF UTERUS 07/14/2020 PAP SMEAR 05/05/2020 Normal REVIEW OF SYSTEMS Review of Systems: Review of Systems Constitutional: Negative. HENT: Negative. Eyes: Negative. Respiratory: Negative. Cardiovascular: Negative. Gastrointestinal: Negative. Genitourinary: Negative. Musculoskeletal: Negative. Skin: Negative. Neurological: Negative. All other systems reviewed and are negative. Hematological: Negative. Endocrine: Negative. Allergic/Immunologic: Negative. OBJECTIVE Objective: Physical Exam Constitutional: Appearance: Normal appearance. She is well-developed. Cardiovascular: Rate and Rhythm: Normal rate and regular rhythm. Pulmonary: Effort: Pulmonary effort is normal. Breath sounds: Normal breath sounds. Abdominal: General: Bowel sounds are normal. There is no distension. Palpations: Abdomen is soft. Tenderness: There is no abdominal tenderness. There is no guarding or rebound. Musculoskeletal: General: No swelling. Normal range of motion. Right lower leg: No edema. Left lower leg: No edema. Neurological: Mental Status: She is alert and oriented to person, place, and time. Skin: General: Skin is warm and dry. Psychiatric: Mood and Affect: Mood normal. Behavior: Behavior normal. Vitals and nursing note reviewed. Exam conducted with a pediatrics teacher present. Vitals: Estimated body mass index is 27.76 kg/m as calculated from the following: Height as of 01/02/24: 5' 6 . Weight as of this encounter: 172 lb. BP: 112/70 Patient's last menstrual period was 02/04/2024. ASSESSMENT & PLAN ICD-10-CM 1. 13 weeks gestation of Z3A.13 POCT urinalysis dipstick manually resulted 2. Second trimester Z34.92 POCT urinalysis dipstick manually resulted New OB: Patient presents today for 1st time obstetrics appointment with provider. Patient is currently 13w3d . Patients history has been reviewed in great detail including any potential risks. Patient stated she currently has no complaints. Expectations throughout regarding labs, ultrasounds, and appointments have been discussed with the patient in detail. It was reiterated that the patient is to drink 6-8 glasses of water a day, eat 6 small meals a day, do not consume raw or undercooked meat, and stay away from [facility]. Patient has been consulted regarding any further do's and don'ts of . Patient voiced understanding and all questions and concerns were answered. Orders Placed This Encounter Procedures POCT urinalysis dipstick manually resulted Follow Up: Patient is to return in 4 weeks for routine OB appointment. Documented by Tere Hu LPN on behalf of: Melinda Rand DO documented in this encounter [facility] Clinical Note 06-04-2022 Note Date & Type Note Facility 06-04-2022 Note OPERATIVE NOTE OPERATION DATE: 06/04/2022 PROCEDURE: Primary low transverse section. PREOPERATIVE DIAGNOSIS: 1. Intrauterine at 37 5/7 weeks. 2. Breech presentation. POSTOPERATIVE DIAGNOSIS: 1. Intrauterine at 37 5/7 weeks. 2. Breech presentation. 3. 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 SURGEON: Melinda Rand GIFT OFFICER: SCARLET Albert URINE OUTPUT: Yellow and clear. [...] the Recovery Room in stable condition. [facility] Evaluation note Note Date & Type Note Facility Evaluation note Diagnosis 13 weeks gestation of Second trimester state, incidental documented in this encounter [facility] Evaluation note Note Date & Type Note Facility Evaluation note Diagnosis Second trimester state, incidental 18 weeks gestation of Vaginal discharge Leukorrhea, not specified as infective STD exposure Screening, , for anatomic survey Encounter for anatomic survey documented in this encounter [facility] Summary Purpose Family History No Family History Records FoundNo Family History Records Found Advance Directives No Advanced Directives Records FoundNo Advanced Directives Records Found Additional Source Comments INFORMATION SOURCE (unrecogn ized section and content) DATE CREATED AUTHOR 06/14/2022 [facility] pital DATE CREATED AUTHOR AUTHOR'S ORGANIZ ATION 06/13/2024 [facility] Care Teams (unrecognized sec tion and content) High School Professional Relationship Specialty Start Date End Date Fito Cueto MD [address] [place] [address] PCP - General Family Medicine 02/09/23 High School Professional Relationship Specialty Start Date End Date Fito Cueto MD [address] [place] [address] PCP - General Family Medicine 02/09/23 High School Professional Relationship Specialty Start Date End Date Fito Cueto MD [address] [place] [address] PCP - General Family Medicine 02/09/23 High School Professional Relationship Specialty Start Date End Date Fito Cueto MD [address] [place] [address] PCP - General Family Medicine 02/09/23 High School Professional Relationship Specialty Start Date End Date Fito Cueto MD [address] [place] [address] PCP - General Family Medicine 02/09/23 Reason for Visit (unrecogniz ed section and content) Reason Comments Routine Visit Reason Comments Well Women Visit Routine Visit STI Screening FOR RECORDS PERTAINING TO PATIENTS WHO ARE [...] BE BASED ON THE PRIMARY CLINICAL RECORDS. [employer] [facility]. provides no warranty or guarantee of the accuracy or completeness of information in this document.
== END 2024-06-23 13:58 | disposition home or self-care (01) ==
LOC: US 13:57
PROVIDERS: Visit Provider Obstetrics & Gynecology
DX: O44.02 Complete placenta previa NOS or without hemorrhage, second trimester (principal); Z36.89 Encounter for other specified antenatal screening; Z3A.20 20 weeks gestation of pregnancy
CPT/HCPCS: 76805; 76817

== ENCOUNTER 2024-06-30 09:59 | Outpatient (OUT) | payer OTHER, SELFPAY ==
[2024-07-04 15:07] LABS: AFP Value 91.9 ng/mL (.); Insulin Dep Diabetes No (.); Maternal Age At EDD 33.6 yr (.); OSBR Risk 1 IN 2100 (.); Results Report (.)
== END 2024-06-30 10:00 | disposition home or self-care (01) ==
PROVIDERS: Visit Provider Obstetrics & Gynecology
DX: Z34.92 Encounter for supervision of normal pregnancy, unspecified, second trimester (principal)
CPT/HCPCS: 36415; 82105

== ENCOUNTER 2024-07-21 06:40 | Outpatient (OUT) | payer OTHER, SELFPAY ==
--- OUTSIDE RECORDS SUMMARY | 2024-07-21 06:42 | XMS_ITS | CCD ---
Author Organization [facility] Care Team Providers Care Laundry Technician Name Role Phone KEYONA, DR LAWRENCE Admitting [...] Unavail able SHAWN, SRIKANTH Admitting Unavailable SHAWN, NIOCLÁS Attending Unavailable WEST, DR RIGO Medina Consulting [...] Attending Unavailable TELLY, DR PENNINGTON Consulting Unavailable TEMPLE, DR RIGO Med[employer] Consulting Unavailable KEYONA, DR LAWRENCE Consulting Unavailable Bandar Cueto MDishna Primary Care Provider KEYONA, MELINDA Attending Unavailable KEYONA, MELINDA Attending Unavailable KEYONA, MELINDA Attending Unavailable KEYONA, MELINDA Attending Unavailable KEYONA, MELINDA Attending Unavailable KEYONA, MELINDA Attending Unavailable Allergies Allergy Classification Reported Allergen(s) Allergy Type Date of Onset Reaction(s) Facility (2 sources) Acetaminophen / HYDROcodone Drug Allergy [facility] Repository Medications Current Medications Medication Drug Class(es) Dates Sig (Normalized) Sig (Original) folic acid 1 mg oral tablet (10 sources) take 1 tablet by waldemar th once daily folic acid (Folvite) 1 MG tablet Take 1 mg by mouth 1 (one) time each day at the same time Active Completed/Discontinued Medications Medication Drug Class(es) Dates Sig (Normalized) Sig (Original) Vit-Fe Fumarate-FA ( Vitamins) 28-0.8 MG tablet (18 sources) Start: 04-05-2024 End: 05-08-2024 take 1 [...] PRES NA/UNS] Onset: 05-18-2022 Episodic Menstrual disorders (5 sources) Irregular menstruation, unspecified; Translations: [Missed period] Onset: 11-21-2021 Chronic Other complications of ; [...] conditions (not mental disorders or infectious disease) (17 sources) Encounter for screening for diabetes mellitus; [...] [18 weeks gestation of ] 06-11-2024 Episodic Residual codes; unclassified (2 sources) Gestation period, 22 weeks; Translations: [22 weeks gestation of ] 07-12-2024 Episodic Unclassified (1 source) CONTACT W/AND (SUSP) EXPOS COVID-19; Translations: [CONTACT W/AND (SUSP) EXPOS COVID-19] Onset: 06-14-2022 Unclassified (11 sources) OB Reminders Onset: 04-23-2024 04-23-2024 Past [...] Test Name Value Interpretation Reference Range Facility Urinalysis macro (dipstick) panel (U)on 07-12-2024 Bilirubin, UA Negative Negative - 4(70) +++ mg/dL [facility] Blood, UA Negative Negative - 50 Yang/mcL [facility] Clarity, UA Clear [facility] Color, UA Yellow [facility] Glucose, UA Negative Negative - 2000(110) ++++ mg/dL [facility] Interpretation and review of laboratory results Normal [facility] Ketones, UA Negative Negative - 160(16) ++++ mg/dL [facility] Leukocytes, UA Negative Negative - 500+++ Derik/mcL [facility] Nitrite, UA Negative Negative - Positive [facility] pH, UA 7 5 - 9 [facility] Protein, UA Negative Negative - 2000(20) ++++ mg/dL [facility] Spec Grav, UA 1.02 1 - 1.03 [facility] Urobilinogen, UA 1.0 0.2 - 12 mg/dL [facility] AFP, SERUM, OPEN SPINA BIFID Aon 07-04-2024 AFP MOM 1.60 . [facility] AFP VALUE 91.9 ng/mL . [facility] COMMENT: Comment . [facility] Comment on above: Sonia Sullivan , Ph.D., [facility] Director References: Available Upon Request. Multiples Of Median Cutoffs For AFP Elevations Bhandari 2.5 Black 2.8 IDD 2.0 Twins 4.5 Abbreviation Definitions IDD - Insulin Dep Diabetes OSBR - Open Spina Bifida Risk For further inquiries contact [facility] at [phone]. This test was developed and its performance characteristics determined by [employer] [facility]. It has not been cleared or approved by the Food and Drug Administration. Performed at: [facility] [address] [place], [place] [id number] Mixing Machine Tender Cork Rod: Francis Boyd [facility], Phone: [phone] GEST. AGE ON COLLECTION DATE 21.0 . weeks [facility] GESTAT. AGE BASED ON LMP . [facility] Comment on above: Recalculations are n ot recommended when gestational dating by LMP and ultrasound are within 10 days. INSULIN DEP DIABETES No . [facility] INTERPRETATION Comment . [facility] Comment on above: Interpretation: Scre en Negative This result is screen negative for OSB. [...] Customer Services to discuss available options. The [employer] recommends amniocentesis be offered to women age 35 and older. [age] [facility] MULTIPLE GESTATION No . [facility] OSBR RISK 1 IN 2100 . [facility] RACE . [facility] RESULTS Report . [facility] TEST RESULTS: Negative . [facility] WEIGHT 177 . lbs [facility] N LMP [id number] 2 18 N 1 Y 177 N N N White/ [facility] RECURRENT VAGINITIS (HTRX)on 06-13-2024 ATOPOBIUM VAGINAE 30.301 Abnormal [facility] ATOPOBIUM VAGINAE Detected Abnormal [facility] BVAB 2,3 (BACTERIAL VAGINOSIS ASSOCIATED BACTERIA 2, 3); MOBILUNCUS SPP 0 [facility] BVAB 2,3 (BACTERIAL VAGINOSIS ASSOCIATED BACTERIA 2, 3); MOBILUNCUS SPP Not detected [facility] KAROL ALBICANS, PARAPSILOSIS, TROPICALIS 0 [facility] KAROL ALBICANS, PARAPSILOSIS, TROPICALIS Not detected [facility] KAROL GLABRATA 0 [facility] KAROL GLABRATA Not detected [facility] KAROL KRUSEI 0 [facility] KAROL KRUSEI Not detected [facility] CHLAMYDIA TRACHOMATIS 0 [facility] CHLAMYDIA TRACHOMATIS Not detected [facility] GARDNERELLA VAGINALIS 21.1 Abnormal [facility] GARDNERELLA VAGINALIS Detected Abnormal [facility] Interpretation and review of laboratory results Abnormal [facility] MEGASPHAERA (TYPES 1, 2) 0 [facility] MEGASPHAERA (TYPES 1, 2) Not detected [facility] MYCOPLASMA GENITALIUM 0 [facility] MYCOPLASMA GENITALIUM Not detected [facility] NEISSERIA GONORRHOEAE 0 [facility] NEISSERIA GONORRHOEAE Not detected [facility] TRICHOMONAS VAGINALIS 0 [facility] TRICHOMONAS VAGINALIS Not detected [facility] Urinalysis macro (dipstick) panel (U)on 06-11-2024 Bilirubin, UA Negative Negative - 4(70) +++ mg/dL [facility] Blood, UA Negative Negative - 50 Yang/mcL [facility] Clarity, UA Clear [facility] Color, UA Yellow [facility] Glucose, UA Negative Negative - 1999(110) ++++ mg/dL [facility] Interpretation and review of laboratory results Normal [facility] Ketones, UA Negative Negative - 160(16) ++++ mg/dL [facility] Leukocytes, UA Negative Negative - 500+++ Derik/mcL [facility] Nitrite, UA Negative Negative - Positive [facility] pH, UA 5.5 5 - 9 [facility] Protein, UA Negative Negative - 1999(20) ++++ mg/dL [facility] Spec Grav, UA 1.02 1 - 1.03 [facility] Urobilinogen, UA 1.0 0.2 - 12 mg/dL [facility] Urinalysis macro (dipstick) panel (U)on 05-08-2024 Bilirubin, UA Negative Negative - 4(70) +++ mg/dL [facility] Blood, UA Positive Negative - 50 Yang/mcL [facility] Comment on above: trace-intact Clarity, UA Clear [facility] Color, UA Yellow [facility] Glucose, UA Negative Negative - 1999(110) ++++ mg/dL [facility] Interpretation and review of laboratory results Abnormal [facility] Ketones, UA Negative Negative - 160(16) ++++ mg/dL [facility] Leukocytes, UA Negative Negative - 500+++ Derik/mcL [facility] Nitrite, UA Negative Negative - Positive [facility] pH, UA 6 5 - 9 [facility] Protein, UA Negative Negative - 2000(20) ++++ mg/dL [facility] Spec Grav, UA 1.025 1 - 1.03 [facility] Urobilinogen, UA 0.2 0.2 - 12 mg/dL [facility] ALL CBC WITH AUTO DIFFon BASOPHILS ABSOLUTE AUTO 0.0 [facility] Basophils/100 WBC (Bld) 0.4 % 0.2 - 2.0 % [facility] Eosinophils/100 WBC (Bld) 0.9 % 0.9 - 7.0 % [facility] Erythrocyte distribution width (RBC) [Ratio] 11.9 % 11.0 - 15.0 % [facility] Hematocrit (Bld) [Volume fraction] 37.1 % 36.0 - 48.0 % [facility] Hemoglobin (Bld) [Mass/Vol] 12.6 g/dL 12.0 - 16.0 g/dL [facility] IMMATURE GRANULOCYTES ABS AUTO 0.03 [facility] Immature granulocytes/100 WBC (Bld) 0.4 % 0.0 - 0.5 % [facility] Interpretation and review of laboratory results Abnormal [facility] LYMPHOCYTES ABSOLUTE AUTO 1.7 [facility] Lymphocytes/100 WBC (Bld) 21.2 % 20.5 - 60.0 % [facility] MCH (RBC) [Entitic mass] 31.7 pg 26.7 - 34.0 pg [facility] MCHC (RBC) [Mass/Vol] 34.0 g/dL 29.9 - 35.2 g/dL [facility] MCV (RBC) [Entitic vol] 93.5 fL 81.0 - 99.0 fL [facility] MONOCYTES ABSOLUTE AUTO 0.6 [facility] Monocytes/100 WBC (Bld) 6.8 % 1.7 - 12.0 % [facility] NEUTROPHILS ABSOLUTE AUTO 5.7 [facility] Neutrophils/100 WBC (Bld) 70.3 % 43.0 - 75.0 % [facility] Platelet mean volume (Bld) [Entitic vol] 9.8 fL 9.5 - 13.5 fL [facility] TBH EO # 0.1 [facility] PLT 219 [facility] RBC 3.97 Low [facility] TB WBC 8.1 [facility] HCG ( test) Ql (U)o n 04-05-2024 Interpretation and review of laboratory results Abnormal [facility] Preg Test, Ur Positive [facility] Urinalysis macro (dipstick) panel (U)on 04-05-2024 Bilirubin, UA Negative Negative - 4(70) +++ mg/dL [facility] Blood, UA Positive Negative - 50 Yang/mcL [facility] Comment on above: trace intact Clarity, UA Clear [facility] Color, UA Yellow [facility] Glucose, UA Negative Negative - 1999(110) ++++ mg/dL [facility] Interpretation and review of laboratory results Abnormal [facility] Ketones, UA Negative Negative - 160(16) ++++ mg/dL [facility] Leukocytes, UA Trace Negative - 500+++ Derik/mcL [facility] Nitrite, UA Negative Negative - Positive [facility] pH, UA 6.5 5 - 9 [facility] Protein, UA Negative Negative - 1999(20) ++++ mg/dL [facility] Spec Grav, UA 1.015 1 - 1.03 [facility] Urobilinogen, UA 0.2 0.2 - 12 mg/dL [facility] CBC AUTO DIFFon 06-05-2022 BASO # 0.0 103/ul Normal 0.0-0.1 [facility] Comment on above: Performed By: #### C BC #### [facility] [address] [place] [address] Dr. Sandi Michelle Basophils/100 WBC (Bld) 0.2 % Normal 0.2-2.0 [facility] Comment on above: Performed By: #### C BC #### [facility] [address] [address] [address] Sandi Michelle EO # 0.0 103/ul Normal 0.0-0.7 [facility] Comment on above: Performed By: #### C BC #### [facility] [address] [place] [address] Dr. Sandi Michelle Eosinophils/100 WBC (Bld) 0.2 % Critically low 0.9-7.0 [facility] Comment on above: Performed By: #### C BC #### [facility] [address] [place] [address] Dr. Sandi Michelle Erythrocyte distribution width (RBC) [Ratio] 14.3 % Normal 11.0-15.0 [facility] Comment on above: Performed By: #### C BC #### [facility] [address] [place] [address] Dr. Sandi Michelle Hematocrit (Bld) [Volume fraction] 27.3 % Critically low 36.0-48.0 [facility] Comment on above: Performed By: #### C BC #### [facility] [address] [place] [address] Dr. Sandi Michelle Hemoglobin (Bld) [Mass/Vol] 9.3 g/dL Critically low 12.0-16.0 [facility] Comment on above: Result Comment: DELI VERY Performed By: #### C BC #### [facility] [address] [place] [address] Dr. Sandi Michelle IG # 0.14 10e3/ul Critically high 0.00-0.03 [facility] Comment on above: Performed By: #### C BC #### [facility] [address] [place] [address] Dr. Sandi Michelle IG % 1.1 % Critically high 0.0-0.5 [facility] Comment on above: Performed By: #### C BC #### [facility] [address] [place] [address] Dr. Sandi Michelle LYMPH # 1.6 103/ul Normal 1.2-3.8 [facility] Comment on above: Performed By: #### C BC #### [facility] [address] [place] [address] Dr. Sandi Michelle Lymphocytes/100 WBC (Bld) 12.1 % Critically low 20.5-60.0 [facility] Comment on above: Performed By: #### C BC #### [facility] [address] [place] [address] Dr. Sandi Michelle MANUAL DIFF REQ NO Normal [facility] Comment on above: Performed By: #### C BC #### [facility] [address] [address] [address] Sandi Michelle MCH (RBC) [Entitic mass] 31.8 pg Normal 26.7-34.0 [facility] Comment on above: Performed By: #### C BC #### [facility] [address] [address] [address] Sandi Michelle MCHC (RBC) [Mass/Vol] 34.1 g/dL Normal 29.9-35.2 [facility] Comment on above: Performed By: #### C BC #### [facility] [address] [address] [address] Sandi Michelle MCV (RBC) [Entitic vol] 93.5 fL Normal 81.0-99.0 [facility] Comment on above: Performed By: #### C BC #### [facility] [address] [place] [address] Dr. Sandi Michelle MONO # 0.9 103/ul Critically high 0.3-0.8 [facility] Comment on above: Performed By: #### C BC #### [facility] [address] [place] [address] Dr. Sandi Michelle Monocytes/100 WBC (Bld) 6.8 % Normal 1.7-12.0 [facility] Comment on above: Performed By: #### C BC #### [facility] [address] [place] [address] Dr. Sandi Michelle NEUT # 10.3 103/ul Critically high 1.4-6.5 [facility] Comment on above: Performed By: #### C BC #### [facility] [address] [place] [address] Dr. Sandi Michelle Neutrophils/100 WBC (Bld) 79.6 % Critically high 43.0-75.0 [facility] Comment on above: Performed By: #### C BC #### [facility] [address] [place] [address] Dr. Sandi Michelle Platelet mean volume (Bld) [Entitic vol] 9.8 fL Normal 9.5-13.5 [facility] Comment on above: Performed By: #### C BC #### [facility] [address] [address] [address] Sandi Michelle PLT 138 103/ul Critically low 150-450 [facility] Comment on above: Performed By: #### C BC #### [facility] [address] [address] [address] Sandi Michelle RBC 2.92 106/ul Critically low 4.20-5.40 [facility] Comment on above: Performed By: #### C BC #### [facility] [address] [address] [address] Sandi Michelle WBC 12.9 103/ul Critically high 4.0-11.0 [facility] Comment on above: Performed By: #### C BC #### [facility] [address] [place] [address] Dr. Sandi Michelle CBC AUTO DIFFon 06-04-2022 BASO # 0.0 103/ul Normal 0.0-0.1 [facility] Comment on above: Performed By: #### C BC #### [facility] [address] [place] [address] Dr. Sandi Michelle Basophils/100 WBC (Bld) 0.3 % Normal 0.2-2.0 [facility] Comment on above: Performed By: #### C BC #### [facility] [address] [place] [address] Dr. Sandi Michelle EO # 0.0 103/ul Normal 0.0-0.7 [facility] Comment on above: Performed By: #### C BC #### [facility] [address] [place] [address] Dr. Sandi Michelle Eosinophils/100 WBC (Bld) 0.1 % Critically low 0.9-7.0 [facility] Comment on above: Performed By: #### C BC #### [facility] [address] [place] [address] Dr. Sandi Michelle Erythrocyte distribution width (RBC) [Ratio] 14.4 % Normal 11.0-15.0 [facility] Comment on above: Performed By: #### C BC #### [facility] [address] [place] [address] Dr. Sandi Michelle Hematocrit (Bld) [Volume fraction] 37.2 % Normal 36.0-48.0 [facility] Comment on above: Performed By: #### C BC #### [facility] [address] [place] [address] Dr. Sandi Michelle Hemoglobin (Bld) [Mass/Vol] 12.9 g/dL Normal 12.0-16.0 [facility] Comment on above: Performed By: #### C BC #### [facility] [address] [place] [address] Dr. Sandi Michelle IG # 0.23 10e3/ul Critically high 0.00-0.03 [facility] Comment on above: Performed By: #### C BC #### [facility] [address] [place] [address] Dr. Sandi Michelle IG % 1.6 % Critically high 0.0-0.5 [facility] Comment on above: Performed By: #### C BC #### [facility] [address] [place] [address] Dr. Sandi Michelle LYMPH # 2.3 103/ul Normal 1.2-3.8 [facility] Comment on above: Performed By: #### C BC #### [facility] [address] [place] [address] Dr. Sandi Michelle Lymphocytes/100 WBC (Bld) 16.0 % Critically low 20.5-60.0 [facility] Comment on above: Performed By: #### C BC #### [facility] [address] [place] [address] Dr. Sandi Michelle MANUAL DIFF REQ NO Normal [facility] Comment on above: Performed By: #### C BC #### [facility] [address] [place] [address] Dr. Sandi Michelle MCH (RBC) [Entitic mass] 32.3 pg Normal 26.7-34.0 [facility] Comment on above: Performed By: #### C BC #### [facility] [address] [address] [address] Sandi Michelle MCHC (RBC) [Mass/Vol] 34.7 g/dL Normal 29.9-35.2 [facility] Comment on above: Performed By: #### C BC #### [facility] [address] [address] [address] Sandi Michelle MCV (RBC) [Entitic vol] 93.0 fL Normal 81.0-99.0 [facility] Comment on above: Performed By: #### C BC #### [facility] [address] [address] [address] Sandi Michelle MONO # 0.8 103/ul Normal 0.3-0.8 [facility] Comment on above: Performed By: #### C BC #### [facility] [address] [place] [address] Dr. Sandi Michelle Monocytes/100 WBC (Bld) 5.8 % Normal 1.7-12.0 [facility] Comment on above: Performed By: #### C BC #### [facility] [address] [address] [address] Sandi Michelle NEUT # 10.7 103/ul Critically high 1.4-6.5 [facility] Comment on above: Performed By: #### C BC #### [facility] [address] [place] [address] Dr. Sandi Michelle Neutrophils/100 WBC (Bld) 76.2 % Critically high 43.0-75.0 [facility] Comment on above: Performed By: #### C BC #### [facility] [address] [address] [address] Sandi Michelle Platelet mean volume (Bld) [Entitic vol] 10.9 fL Normal 9.5-13.5 [facility] Comment on above: Performed By: #### C BC #### [facility] [address] [address] [address] Sandi Michelle PLT 194 103/ul Normal 150-450 [facility] Comment on above: Performed By: #### C BC #### [facility] [address] [place], [place] [address] Dr. Sandi Michelle RBC 4.00 106/ul Critically low 4.20-5.40 [facility] Comment on above: Performed By: #### C BC #### [facility] [address] [place], [place] [address] Dr. Sandi Michelle WBC 14.0 103/ul Critically high 4.0-11.0 [facility] Comment on above: Performed By: #### C BC #### [facility] [address] [place], [place] [address] Dr. Sandi Michelle Covid-19 PCR (CVDTB)on 05-25 SARS-CoV-2 (COVID-19) RNA ALETHEA+probe Ql (Unsp spec) Not detected Normal NOT DETECTED [facility] Comment on above: Result Comment: When [...] for this test is supported by the Assembly Cleaner of Health and Human Service's declaration that [...] be used). Performed By: #### C VDTBH ####[facility] [address] [place], [place] [address]PaDr. Sandi Michelle DRUG SCREEN RAPID (URINE)on 06-04-2022 AMP Negative Normal NEGATIVE [facility] Comment on above: Performed By: #### D RUGRPD ####[facility] [address] [place], [place] [address]IvDen Michelle BAR Negative Normal NEGATIVE [facility] Comment on above: Performed By: #### D RUGRPD ####[facility] [address] [address]Dr. Sandi Michelle BUP Negative Normal NEGATIVE [facility] Comment on above: Performed By: #### D RUGRPD ####[facility] [address] [place], [place] [address]Dr. Sandi Michelle BZO Negative Normal NEGATIVE [facility] Comment on above: Performed By: #### D RUGRPD ####[facility] [address] [place], [place] [address]Dr. Sandi Michelle NINO Negative Normal NEGATIVE [facility] Comment on above: Performed By: #### D RUGRPD ####[facility] [address] [place], [place] [address]Dr. Sandi Michelle CUT-OFFS SEE BELOW Normal [facility] Comment on above: Result Comment: AMP (Amphetamine): 500ng/mL, BAR (Barbituates): 200 ng/mL, BZO (Benzodiazepines): 150 ng/mL, BUP (Buprenorphine): 10 ng/mL, NINO (Cocaine): 150 ng/mL, mAMP (Methamphetamine): 500 ng/mL, MTD (Methadone): 200 ng/mL, OPI (Opiates): 100 ng/mL, OXY (Oxycodone): 100 ng/mL, PCP (Phencyclidine): 25 ng/mL, PPX (Propoxyphene): 300 ng/mL, THC (Cannabinoids): 50 ng/mL, TCA (Trycyclic Antidepressants): 300 ng/mL Performed By: #### D RUGRPD ####[facility] [address] [place], [place] [address]Dr. Sandi Michelle DRUG CUT HEADER DRUG CLASS TEST SYSTEM CUT-OFF CONCENTRATIONS ARE FOLLOWS: Normal [facility] Comment on above: Performed By: #### D RUGRPD ####[facility] [address] [place], [place] [address]Dr. Sandi Michelle mAMP Negative Normal NEGATIVE [facility] Comment on above: Performed By: #### D RUGRPD ####[facility] [address] [place], [place] [address]Dr. Sandi Michelle MTD Negative Normal NEGATIVE [facility] Comment on above: Performed By: #### D RUGRPD ####[facility] [address] [address]Dr. Sandi Michelle OPI Negative Normal NEGATIVE [facility] Comment on above: Performed By: #### D RUGRPD ####[facility] [address] [address]Dr. Yisonia Michelle OXY Negative Normal NEGATIVE [facility] Comment on above: Performed By: #### D RUGRPD ####[facility] [address] [address]Dr. Sandi Michelle PCP Negative Normal NEGATIVE [facility] Comment on above: Performed By: #### D RUGRPD ####[facility] [address] [address]Dr. Sandi Michelle PPX Negative Normal NEGATIVE [facility] Comment on above: Performed By: #### D RUGRPD ####[facility] [address] [address]Dr. Sandi Michelle TCA Negative Normal NEGATIVE [facility] Comment on above: Performed By: #### D RUGRPD ####[facility] [address] [address]Dr. Sandi Michelle THC Negative Normal NEGATIVE [facility] Comment on above: Performed By: #### D RUGRPD ####[facility] [address] [address]Dr. Sandi Michelle TYPE AND SCREENon 06-04-2022 TYPE AND SCREEN Negative Normal [facility] Comment on above: Performed By: #### T NS ####[facility] [address] [place], [place] [address]Dr. Sandi Michelle US PREG BIOPHY W NON [...] by: RIGO FISCHER Date: 2022-05-30 08:30 Normal [facility] GROUP B STREP CULTUREon 11-0 S. agalactiae Ag Ql (Unsp spec) Culture Observations: NEGATIVE FOR GROUP B STREPTOCOCCUS. Normal [facility] Comment on above: Performed By: #### G BSCX ####[facility] [address] [place], [place] [address]Um. Sandi Michelle US PREG BIOPHY W NON [...] by: RIGO FISCHER Date: 2022-05-23 09:41 Normal [facility] US PREG BIOPHY W NON STRESSo [...] by: RIGO FISCHER Date: 2022-05-16 16:10 Normal [facility] US PREG GROWTHon 05-11-2022 US PREG GROWTH EXAMINATION: US PREG GROWTH, US PREG CERVICAL LENGTH HISTORY: Excessive growth affecting management of mother COMPARISON: Ultrasound growth 04/27/2022 FINDINGS: Heart Rate: 137.8 bpm (accession [id number]), 167.3 bpm (accession [id number]) Number: 1.0 Position: BREECH Amniotic Fluid Volume: [...] TIFF URIBE Date: 2022-05-11 19:19 Normal [facility] US PREG GROWTHon 04-27-2022 US PREG [...] TIFF URIBE Date: 2022-04-27 20:51 Normal [facility] GLUCOSE - 1HRon 03-15-2022 Glucose [Mass/Vol] 137 mg/dL Critically high 74-106 [facility] Comment on above: Performed By: #### C BC #### [facility] [address] [place] [address] Dr. Sandi Michelle HEMOGRAM AND PLATELon 2021 Hematocrit (Bld) [Volume fraction] 34.9 % Critically low 36.0-48.0 [facility] Comment on above: Performed By: #### C BC #### [facility] [address] [place] [address] Dr. Sandi Michelle Hemoglobin (Bld) [Mass/Vol] 11.5 g/dL Critically low 12.0-16.0 [facility] Comment on above: Performed By: #### C BC #### [facility] [address] [place] [address] Dr. Sandi Michelle MCH (RBC) [Entitic mass] 31.8 pg Normal 26.7-34.0 [facility] Comment on above: Performed By: #### C BC #### [facility] [address] [place] [address] Dr. Sandi Michelle MCHC (RBC) [Mass/Vol] 33.0 g/dL Normal 29.9-35.2 [facility] Comment on above: Performed By: #### C BC #### [facility] [address] [place] [address] Dr. Sandi Michelle MCV (RBC) [Entitic vol] 96.4 fL Normal 81.0-99.0 [facility] Comment on above: Performed By: #### C BC #### [facility] [address] [place] [address] Dr. Sandi Michelle PLT 225 103/ul Normal 150-450 [facility] Comment on above: Performed By: #### C BC #### [facility] [address] [address] [address] Sandi Michelle RBC 3.62 106/ul Critically low 4.20-5.40 [facility] Comment on above: Performed By: #### C BC #### [facility] [address] [address] [address] Sandi Michelle WBC 12.9 103/ul Critically high 4.0-11.0 [facility] Comment on above: Performed By: #### C BC #### [facility] [address] [address] [address] Sandi Michelle CHLAMYDIA/GONOCOCCUS ALETHEA (SW AB/URINE/PAPon 02-04-2022 Chlamydia trachomatis, ALETHEA Negative Normal Negative [facility] Comment on above: Performed By: #### C T/NGNA #### [facility] [address] [address] [address] Sandi Michelle Neisseria gonorrhoeae, ALETHEA Negative Normal Negative [facility] Comment on above: Performed By: #### C T/NGNA #### [facility] [address] [address] [address] Sandi Michelle PAP ACOG PANEL 2: 30 to 65on 02-04-2022 . . Normal [facility] Comment on above: Result Comment: Perf ormed at: WB Performed By: #### 4 [id number] ####[facility] [address] [address]Dr. Sandi Michelle Age Gdln ACOG Testing 30-65 Normal [facility] Comment on above: Performed By: #### 4 [id number] ####[facility] [address] [id number]. Sandi Michelle DIAGNOSIS: Comment Normal [facility] Comment on above: Result Comment: NEGA TIVE FOR INTRAEPITHELIAL LESION OR MALIGNANCY. Performed at: WB Performed By: #### 4 [id number] ####[facility] [address] [id number]. Sandi Michelle HPV Aptima Negative Normal Negative [facility] Comment on above: Result Comment: This nucleic acid amplification test detects fourteen high-risk HPV types (16,18,31,33,35,39,45,51,52,56,58,59,66,68) without differentiation. Performed at: =G Performed By: #### 4 [id number] ####[facility] [address] [place], [place] [address]DrDen Michelle Methodology: Comment Normal [facility] Comment on above: Result Comment: This liquid based ThinPrep(R) pap test was screened with the use of an image guided system. Performed at: WB Performed By: #### 4 [id number] ####[facility] [address] [place], [place] [address]DrDen Michelle Note: Comment Normal [facility] Comment on above: Result Comment: The Pap smear is a screening test designed to aid in the detection of premalignant and malignant conditions of the uterine cervix. It is not a diagnostic procedure and should not be used as the sole means of detecting cervical cancer. Both false-positive and false-negative reports do occur. . Performed at: WB Performed By: #### 4 [id number] ####[facility] [address] [place], [place] [address]DrDen Michelle Performed by: Comment Normal [facility] Comment on above: Result Comment: Vikas Mcclellan, Supervisor Cereal (ASCP) Performed at: WB Performed By: #### 4 [id number] ####[facility] [address] [place], [place] [address]DrDen Michelle Specimen adequacy: Comment Normal [facility] Comment on above: Result Comment: Sati sfactory for evaluation. No endocervical component is identified. Performed at: WB Performed By: #### 4 [id number] ####[facility] [address] [place], [place] [address]DrDen Michelle VAGINITIS/VAGINOSIS DNA PROB Nicholas 02-03-2022 Karol species Negative Normal Negative [facility] Comment on above: Performed By: #### V AGINT ####[facility] [address] [place], [place] [address]DrDen Michelle Gardnerella vaginalis Negative Normal Negative [facility] Comment on above: Performed By: #### V AGINT ####[facility] [address] [place], [place] [address]Lm. Sandi Michelle Trichomonas vaginalis Negative Normal Negative [facility] Comment on above: Performed By: #### V AGINT ####[facility] [address] [place], [place] [address]Vs. Sandi Michelle US PREG ANATOMY SINGLEon US [...] RIGO FISCHER Date: 2022-02-01 19:32 Normal [facility] AFP MATERNAL FOR SPINA BIFID Aon 06-30-2022 AFP MoM 1.24 Normal [facility] Comment on above: Performed By: #### A FPMAT ####[facility] [address] [id number]. Sandi [facility] AFP Value 55.2 ng/mL Normal [facility] Comment on above: Performed By: #### A FPMAT ####[facility] [address] [address]Dr. Sandi Michelle AFP, Serum for Spina Bifida Report Normal [facility] Comment on above: Performed By: #### A FPMAT ####[facility] [address] [address]Dr. Sandi Michelle Comment Comment Normal [facility] Comment on above: Result Comment: Iesha Sullivan, Ph.D., [facility] Director . References: Available Upon Request. . Multiples Of Median Cutoffs For AFP Elevations Bhandari 2.5 Black 2.8 IDD 2.0 Twins 4.5 Abbreviation Definitions IDD - Insulin Dep Diabetes OSBR - Open Spina Bifida Risk . For further inquiries contact [employer] at [phone]. . This test was developed and its performance characteristics determined by [employer]. It has not been cleared or approved by the Food and Drug Administration. Performed By: #### A FPMAT ####[facility] [address] [id number]. Sandi Michelle Gest Age Collection Date 18.1 weeks Normal [facility] Comment on above: Performed By: #### A FPMAT ####[facility] [address] [place], [place] [address]Aq. Sandi Michelle Gestat, Age Based on JOSE Normal [facility] Comment on above: Result Comment: 05/26 Recalculations are not recommended when gestational dating by LMP and ultrasound are within 10 days. Performed By: #### A FPMAT ####[facility] [address] [place] [id number]. Sandi Michelle Insulin Dep Diabetes Comment Normal [facility] Comment on above: Result Comment: Not provided. . Performed By: #### A FPMAT ####[facility] [address] [phone]. Sandi Michelle Interpretation Comment Normal [facility] Comment on above: Result [...] Customer Services to discuss available options. The [employer] recommends amniocentesis be offered to women age 35 and older. Performed By: #### A FPMAT ####[facility] [address] [phone]. Sandi Michelle [age] Normal [facility] Comment on above: Performed By: #### A FPMAT ####[facility] [address] [place] [address]Dr. Sandi Michelle Multiple Gestation No Normal [facility] Comment on above: Performed By: #### A FPMAT ####[facility] [address] [address]Dr. Sandi Michelle OSBR Risk 1 IN 5748 Normal [facility] Comment on above: Performed By: #### A FPMAT ####[facility] [address] [address]Dr. Sandi Michelle PDF . Normal [facility] Comment on above: Performed By: #### A FPMAT ####[facility] [address] [address]Dr. Sadni Michelle Race Normal [facility] Comment on above: Performed By: #### A FPMAT ####[facility] [address] [address]Dr. Sandi Michelle Test Results: Negative Normal [facility] Comment on above: Performed By: #### A FPMAT ####[facility] [address] [place], [place] [address]Jb. Sandi Michelle HEP B SURFACE ANTIGEN SCREEN on 11-22-2021 HBsAg Screen Negative Normal Negative [facility] Comment on above: Performed By: #### H BSANS ####[facility] [address] [place], [place] [address]Rc. Sandi Michelle HEPATITIS C VIRUS AB W/ REFL EX QUANTon 11-22-2021 HCV AB 0.1 s/co ratio Normal 0.0-0.9 [facility] Comment on above: Performed By: #### C BC #### [facility] [address] [address] [address] Sandi Michelle Interpretation: Comment Normal [facility] Comment on above: Result Comment: Nega tive Not infected with HCV, unless recent infection is suspected or other evidence exists to indicate HCV infection. Performed By: #### C BC #### [facility] [address] [address] [address] Sandi Michelle HIV 1 AND 2 WITH REFLEXon HIV Screen 4th Generation wRfx Non-Reactive Normal Non Reactive [facility] Comment on above: Result Comment: HIV Negative HIV-1/HIV-2 antibodies and HIV-1 p24 antigen were NOT detected. There is no laboratory evidence of HIV infection. Performed By: #### H IV12 ####[facility] [address] [place], [place] [address]Ml. Sandi Michelle RPR QUANTon 11-22-2021 Rapid Plasma Reagin, Quant Non-Reactive Normal NonRea<1:1 [facility] Comment on above: Result Comment: Plea se Note: This test does not meet current guidelines for screening and diagnosis of syphilis. This test is intended for following treatment response in patients being treated for syphilis infection. To screen for syphilis infection, a reflex cascade that includes both RPR and a treponema-specific assay should be utilized, such as Treponema pallidum (Syphilis) Screening Evangeline (271919) or Rapid Plasma Reagin (RPR) Test With Reflex to Quantitative RPR and Confirmatory Treponema pallidum Antibodies (335994). Performed By: #### C BC #### [facility] [address] [place] [address] Dr. Sandi Michelle RUBELLA AB IGGon 11-22-2021 Rubella Antibodies, IgG 9.33 index Normal Immune >0.99 [facility] Comment on above: Result Comment: Non- immune <0.90 Equivocal 0.90 - 0.99 Immune >0.99 Performed By: #### C BC #### [facility] [address] [place] [address] Dr. Sandi Michelle CBC AUTO DIFFon 11-21-2021 BASO # 0.0 103/ul Normal 0.0-0.1 [facility] Comment on above: Performed By: #### C BC #### [facility] [address] [place] [address] Dr. Sandi Michelle Basophils/100 WBC (Bld) 0.4 % Normal 0.2-2.0 [facility] Comment on above: Performed By: #### C BC #### [facility] [address] [place] [address] Dr. Sandi Michelle EO # 0.1 103/ul Normal 0.0-0.7 [facility] Comment on above: Performed By: #### C BC #### [facility] [address] [place] [address] Dr. Sandi Michelle Eosinophils/100 WBC (Bld) 0.6 % Critically low 0.9-7.0 [facility] Comment on above: Performed By: #### C BC #### [facility] [address] [place] [address] Dr. Sandi Michelle Erythrocyte distribution width (RBC) [Ratio] 11.9 % Normal 11.0-15.0 [facility] Comment on above: Performed By: #### C BC #### [facility] [address] [place] [address] Dr. Sandi Michelle Hematocrit (Bld) [Volume fraction] 37.1 % Normal 36.0-48.0 [facility] Comment on above: Performed By: #### C BC #### [facility] [address] [place] [address] Dr. Sandi Michelle Hemoglobin (Bld) [Mass/Vol] 12.2 g/dL Normal 12.0-16.0 [facility] Comment on above: Performed By: #### C BC #### [facility] [address] [place] [address] Dr. Sandi Michelle IG # 0.03 10e3/ul Normal 0.00-0.03 [facility] Comment on above: Performed By: #### C BC #### [facility] [address] [place] [address] Dr. Sandi Michelle IG % 0.4 % Normal 0.0-0.5 [facility] Comment on above: Performed By: #### C BC #### [facility] [address] [place] [address] Dr. Sandi Michelle LYMPH # 1.8 103/ul Normal 1.2-3.8 [facility] Comment on above: Performed By: #### C BC #### [facility] [address] [place] [address] Dr. Sandi Michelle Lymphocytes/100 WBC (Bld) 23.4 % Normal 20.5-60.0 [facility] Comment on above: Performed By: #### C BC #### [facility] [address] [place] [address] Dr. Sandi Michelle MANUAL DIFF REQ NO Normal [facility] Comment on above: Performed By: #### C BC #### [facility] [address] [place] [address] Dr. Sandi Michelle MCH (RBC) [Entitic mass] 31.4 pg Normal 26.7-34.0 [facility] Comment on above: Performed By: #### C BC #### [facility] [address] [place] [address] Dr. Sandi Michelle MCHC (RBC) [Mass/Vol] 32.9 g/dL Normal 29.9-35.2 [facility] Comment on above: Performed By: #### C BC #### [facility] [address] [place] [address] Dr. Sandi Michelle MCV (RBC) [Entitic vol] 95.6 fL Normal 81.0-99.0 [facility] Comment on above: Performed By: #### C BC #### [facility] [address] [address] [address] Sandi Michelle MONO # 0.5 103/ul Normal 0.3-0.8 [facility] Comment on above: Performed By: #### C BC #### [facility] [address] [address] [address] Sandi Michelle Monocytes/100 WBC (Bld) 6.6 % Normal 1.7-12.0 [facility] Comment on above: Performed By: #### C BC #### [facility] [address] [address] [address] Sandi Michelle NEUT # 5.4 103/ul Normal 1.4-6.5 [facility] Comment on above: Performed By: #### C BC #### [facility] [address] [place] [address] Dr. Sandi Michelle Neutrophils/100 WBC (Bld) 68.6 % Normal 43.0-75.0 [facility] Comment on above: Performed By: #### C BC #### [facility] [address] [place] [address] Dr. Sandi Michelle Platelet mean volume (Bld) [Entitic vol] 10.1 fL Normal 9.5-13.5 [facility] Comment on above: Performed By: #### C BC #### [facility] [address] [place] [address] Dr. Sandi Michelle PLT 237 103/ul Normal 150-450 [facility] Comment on above: Performed By: #### C BC #### [facility] [address] [place] [address] Dr. Sandi Michelle RBC 3.88 106/ul Critically low 4.20-5.40 [facility] Comment on above: Performed By: #### C BC #### [facility] [address] [address] [address] Sandi Michelle WBC 7.9 103/ul Normal 4.0-11.0 [facility] Comment on above: Performed By: #### C BC #### [facility] [address] [address] [address] Sandi Michelle CULTURE URINEon 11-21-2021 CULTURE URINE Culture Observations : LIGHT GROWTH OF MIXED GENITAL MENDEZ. NO POTENTIAL PATHOGENS SEEN. Normal [facility] Comment on above: Performed By: #### U RCX #### [facility] [address] [place] [address] Dr. Sandi Michelle GLYCOHEMOGLOBIN A1Con 2021 ADA RECOMMENDATION SEE BELOW Normal [facility] Comment on above: Result Comment: ADA RECOMMENDED LIMIT 4.0 - 6.0 ADA THERAPEUTIC TARGET < 7.0 ACTION SUGGESTED > 7.0 Performed By: #### A 1C ####[facility] [address] [address]Dr. Sandi Michelle Glucose [Mass/Vol] 103 mg/dL Normal [facility] Comment on above: Performed By: #### A 1C ####[facility] [address] [address]Dr. Sandi Michelle HbA1c (Bld) [Mass fraction] 5.2 % Normal 4.5-6.2 [facility] Comment on above: Performed By: #### A 1C ####[facility] [address] [address]Dr. Sandi Michelle TYPE AND SCREENon 11-21-2021 TYPE AND SCREEN Negative Normal [facility] Comment on above: Performed By: #### T NS #### [facility] [address] [place] [address] Dr. Sandi Michelle US PREG TVon 11-03-2021 [...] TIFF URIBE Date: 2021-11-03 07:19 Normal [facility] PREG QUANT HCGon 10-14-2021 HCG QUANT 469 mIU/mL Normal [facility] Comment on above: Performed By: #### P REGQNT #### [facility] [address] [address] [address] Sandi Michelle HCG RANGE SEE BELOW Normal [facility] Comment on above: Result Comment: 5-50 0-1 WEEK 40-300 1-2 WEEKS 100-1,000 2-3 WEEKS 500-6,000 3-4 WEEKS 5,000-200,000 1-2 MONTHS 10,000-100,000 2-3 MONTHS 3,000-50,000 2ND TRIMESTER 1,000-50,000 3RD TRIMESTER Performed By: #### P REGQNT #### [facility] [address] [place] [address] Dr. Sandi Michelle PREG QUANT HCGon 10-12-2021 HCG QUANT 184 mIU/mL Normal [facility] Comment on above: Performed By: #### C BC #### [facility] [address] [place] [address] Dr. Sandi Michelle HCG RANGE SEE BELOW Normal [facility] Comment on above: Result Comment: 5-50 0-1 WEEK 40-300 1-2 WEEKS 100-1,000 2-3 WEEKS 500-6,000 3-4 WEEKS 5,000-200,000 1-2 MONTHS 10,000-100,000 2-3 MONTHS 3,000-50,000 2ND TRIMESTER 1,000-50,000 3RD TRIMESTER Performed By: #### C BC #### [facility] [address] [place] [address] Dr. Sandi Michelle PROTEIN C FUNC ACTIVITYon Prt C Activity (Chromogenic) 130 % Normal [facility] Comment on above: Result Comment: Refe rence Range: 17 years and older: 73 - 180 Effective August 10, 2021 Prt C Activity, (Chromogenic) will be made non-orderable. This will not affect any profile that includes Prt C Activity (Chromogenic). [employer] offers [id number] Protein C Functional. For more information please contact your local [facility] Cardiac Nurse Specialist. Performed By: #### P RCACT ####[facility] [address] [place], [place] [address]RxDen Michelle FACTOR V LEIDEN MUTATION CIARAN LYSISon 07-27-2021 Factor V Leiden Comment Normal [facility] Comment on above: Result Comment: Resu lt: c.1601G>A (p.[id number]) - Not Detected . This result is not associated with an increased risk for venous thromboembolism. See Additional Clinical Information and Comments. Additional Clinical Information: Venous thromboembolism is a multifactorial disease influenced by genetic, environmental, and circumstantial risk factors. The c.1601G>A (p. Qez832Wix) variant in the F5 gene, commonly referred [...] c.*97G>A variant and Factor V Leiden (PMID: 91241468). Additional risk factors include but are not [...] health care providers to discuss results at [phone] (2719). . Test Details: Variant Analyzed: c.1601G>A (p. [id number]), referred to as Factor V Leiden . [...] developed and its performance characteristics determined by [employer]. It has not been cleared or approved by the Food and Drug Administration. . References: Masoud S, Hawa GUTIÉRREZ, Randy R, Moses WW, Luis A JH; A[employer]G Professional Practice and Guidelines Committee. Addendum: [employer] consensus statement on factor V Leiden mutation testing. [employer]. 2020Sep 26. doi: 10.1038/t06826-885-82319-t. PMID: 87900184. . Miriam GAMING. Factor V Leiden Thrombophilia. 1998December 05 [Updated 2017Jul 28]. In: Jv MP, Delia HH, Ian RA, et al., editors. Jovita(R) [Internet]. [place] ([place]): [facility]; 1923-9058. Available from: https://www.ncbi.nlm.nih.gov/books/TNW8726/ . Jonh S, Hawa GUTIÉRREZ, Francisco Javier X, Leobardo B, Ash EB, Deysi P, Mari CS; [employer] Laboratory Financial Internship Committee. Venous thromboembolism laboratory testing (factor V Leiden and factor II c.*97G>A), 2018 update: a technical standard of the [employer] and [employer] (ACMG). [employer]. 2018 Jun;20(12):9693-6581. doi: 10.1038/m71942-139-1635-q. Epub 2017Apr 28. PMID: 36499071. . Martha Guillen, PhD, [facility] Lindsay Jaquez, PhD, [facility] Pete Brown, PhD, [facility] Geronimo Mcdaniel, PhD, [facility] W Khushbu Hays, PhD, [facility] Maureen Mancilla, PhD, [facility] Performed By: #### F VPCR ####[facility] [address] [address]Dr. Sandi Michelle ANTITHROMBIN ACTIVITYon 01- Antithrombin Activity 102 % Normal 75-135 [facility] Comment on above: Result Comment: Dire ct Xa inhibitor anticoagulants such as rivaroxaban, apixaban and edoxaban will lead to spuriously elevated antithrombin activity levels possibly masking a deficiency. Performed By: #### C BC #### [facility] [address] [address] [address] Sandi Michelle B-2 GLYCOPROTEIN AB IGGon Beta-2 Glycoprotein I Ab, IgG <9 Normal 0-20 [facility] Comment on above: Result Comment: The reference interval reflects a 3SD or 99th percentile interval, which is thought to represent a potentially clinically significant result in accordance with the International Consensus Statement on the classification criteria for definitive antiphospholipid syndrome (APS). J Thromb Haem 2006;4:295-306. Performed By: #### B 2GPG ####[facility] [address] [address]Dr. Sandi Michelle B2-GLYCOPROTEIN 1 AB IGMon 0 07-25-2021 Beta-2 Glycoprotein I Ab, IgM <9 Normal 0-32 [facility] Comment on above: Result Comment: The reference interval reflects a 3SD or 99th percentile interval, which is thought to represent a potentially clinically significant result in accordance with the International Consensus Statement on the classification criteria for definitive antiphospholipid syndrome (APS). J Thromb Haem 2006;4:295-306. Performed By: #### B GLYIGM ####[facility] [address] [place] [address]DrDen Michelle LUPUS ANTICOAGULANT W/REFLEX on 07-24-2021 aPTT Coag (Bld) [Time] 30.9 s Normal 0.0-51.9 [facility] Comment on above: Performed By: #### L UPUSRF ####[facility] [address] [address]Dr. Sandi Michelle dRVVT 33.0 sec Normal 0.0-47.0 [facility] Comment on above: Performed By: #### L UPUSRF ####[facility] [address] [place] [id number]. Sandi Michelle Interpretation Comment: Normal [facility] Comment on above: Result Comment: No l upus anticoagulant was detected. Performed By: #### L UPUSRF ####[facility] [address] [place] [address]Dr. Sandi Michelle PROTEIN S ANTIGENon 07-24-20 21 Protein S, Free 104 % Normal 61-136 [facility] Comment on above: Performed By: #### P RTSAG ####[facility] [address] [place] [address]Dr. Sandi Michelle Protein S, Total 90 % Normal 60-150 [facility] Comment on above: Result Comment: This test was developed and its performance characteristics determined by [employer]. It has not been cleared or approved by the Food and Drug Administration. Performed By: #### P RTSAG ####[facility] [id number] [address]Dr. Sandi Michelle PROTEIN S, FUNCTIONALon - Protein S-Functional 107 % Normal 63-140 [facility] Comment on above: Result Comment: Prot ein S activity may be falsely increased (masking an abnormal, low result) in patients receiving direct Xa inhibitor (e.g., rivaroxaban, apixaban, edoxaban) or a direct thrombin inhibitor (e.g., dabigatran) anticoagulant treatment due to assay interference by these drugs. Performed By: #### C BC #### [facility] [address] [address] [address] Sandi Michelle ANTICARDIOLIPIN AB (JEANIE) IGG on 07-23-2021 Anticardiolipin Ab,IgG,Qn <9 Normal 0-14 [facility] Comment on above: Result Comment: Nega tive: <15 Indeterminate: 15 - 20 Low-Med Positive: >20 - 80 High Positive: >80 Performed By: #### C ARDLIP #### [facility] [address] [place], [place] [address] Dr. Sandi Michelle ANTICARDIOLIPIN AB (JEANIE) IGM on 07-23-2021 Anticardiolipin Ab,IgM,Qn 12 MPL U/mL Normal 0-12 [facility] Comment on above: Result Comment: Nega tive: <13 Indeterminate: 13 - 20 Low-Med Positive: >20 - 80 High Positive: >80 Performed By: #### C ARDIGM ####[facility] [address] [place], [place] [address]BgDr. Sandi Michelle Vital Signs Date Time Vital Sign Value Performing Clinician Facility 07-12-2024 09:59-0500 Body mass index (BMI) [Ratio] 29.39 kg/m2 Melinda Keyona DO Work Phone: [facility] 07-12-2024 09:59-0500 Body weight 82.61 kg Melinda Keyona DO Work Phone: [facility] 07-12-2024 09:59-0500 Diastolic blood pressure 68 mm[Hg] Melinda Keyona DO Work Phone: [facility] 07-12-2024 09:59-0500 Systolic blood pressure 108 mm[Hg] Melinda Keyona DO Work Phone: [facility] 06-11-2024 16:44-0500 Body mass index (BMI) [Ratio] 28.59 kg/m2 Melinda Keyona DO Work Phone: [facility] 06-11-2024 16:44-0500 Body weight 80.34 kg Melinda Keyona DO Work Phone: [facility] 06-11-2024 16:44-0500 Diastolic blood pressure 70 mm[Hg] Melinda Keyona DO Work Phone: [facility] 06-11-2024 16:44-0500 Systolic blood pressure 108 mm[Hg] Melinda Keyona DO Work Phone: [facility] 05-08-2024 15:11-0400 Body mass index (BMI) [Ratio] 27.76 kg/m2 Melinda Keyona DO Work Phone: [facility] 05-08-2024 [id number] Body weight 78.02 kg Melinda Keyona DO Work Phone: [facility] 05-08-2024 15:11-0400 Diastolic blood pressure 70 mm[Hg] Melinda Keyona DO Work Phone: [facility] 05-08-2024 15:11-0400 Systolic blood pressure 112 mm[Hg] Melinda Keyona DO Work Phone: [facility] 04-05-2024 14:24-0400 Body mass index (BMI) [Ratio] 27.76 kg/m2 [facility] Nurse [facility] 04-05-2024 14:24-0400 Body weight 78.02 kg [facility] Nurse [facility] 04-05-2024 14:24-0400 Diastolic blood pressure 68 mm[Hg] [facility] Nurse [facility] 04-05-2024 14:24-0400 Systolic blood pressure 118 mm[Hg] [facility] Nurse [facility] 01-21-2022 03:06-0400 Body weight 72.[address] MELINDA RAND [facility] Comment on above: Performed By: #### A FPMAT ####[facility] [id number] [place], [place] [address]Rn. Sandi Michelle Encounters Encounter Date Encounter Type Care Provider Facility Start: 07-12-2024 End: 07-12-2024 Bamboo flowsheet Melinda Keyona DO Work Phone: [facility] Start: 07-12-2024 End: 07-12-2024 Bamboo flowsheet Melinda Keyona DO Work Phone: [facility] Start: 07-12-2024 End: 07-12-2024 flow sheet Melinda Keyona DO Work Phone: [facility] Comment on above: Second trimester pre gnancy; with normal glucose tolerance test (GTT); 22 weeks gestation of ; Diabetes mellitus screening Start: 07-12-2024 End: 07-12-2024 ambulatory MELINDA KEYONA Not Available Start: 06-30-2024 End: 07-04-2024 Clinisync Result Encounter Melinda Keyona DO Work Phone: [facility] Unsolicited Start: 06-30-2024 End: 07-04-2024 Clinisync Result Encounter Melinda Keyona DO Work Phone: [facility] Unsolicited Start: 06-11-2024 End: 06-12-2024 ambulatory MELINDA KEYONA Not Available Start: 06-11-2024 End: 06-12-2024 flow sheet Melinda Keyona DO Work Phone: [facility] Comment on above: Second trimester pre gnancy; 18 weeks gestation of ; Vaginal discharge; STD exposure; Screening, , for anatomic survey Start: 06-11-2024 End: 06-11-2024 Bamboo flowsheet Melinda Keyona DO Work Phone: [facility] Start: 06-11-2024 End: 06-13-2024 Bamboo flowsheet Melinda Keyona DO Work Phone: [facility] Start: 06-11-2024 End: 06-13-2024 External Result Encounter Melinda Keyona DO Work Phone: [facility] Unsolicited Start: 05-08-2024 End: 05-08-2024 flow sheet Melinda Keyona DO Work Phone: [facility] Comment on above: 13 weeks gestation o f ; Second trimester Start: 05-08-2024 End: 05-08-2024 ambulatory MELINDA KEYONA Not Available Start: 05-08-2024 End: 05-08-2024 Bamboo flowsheet Melinda Keyona DO Work Phone: [facility] Start: 05-08-2024 End: 05-08-2024 Bamboo flowsheet Melinda Keyona DO Work Phone: [facility] Start: 04-16-2024 End: 04-16-2024 Clinisync Result Encounter Melinda Keyona DO Work Phone: [facility] Unsolicited Start: 04-16-2024 End: 04-16-2024 Clinisync Result Encounter Melinda Rand DO Work Phone: [facility] Unsolicited Start: 04-05-2024 End: 04-05-2024 ambulatory MELINDA DOWELLO Not Available Start: 04-05-2024 End: 04-05-2024 Office outpatient visit 5 minutes [facility] Keyona Nurse [facility] Comment on above: GA: 8w5d Start: 01-02-2024 End: 01-02-2024 ambulatory MELINDA KEYONA Not Available Start: 12-29-2023 End: 12-29-2023 ambulatory MELINDA DOWELLO Not Available Start: 07-19-2023 End: 07-19-2023 ambulatory [...] Date Procedure Procedure Detail Performing Clinician Start: 07-12-2024 Urnls dip stick/tabl et rgnt non-auto w/o micrscp Melinda Keyona DO Work Phone: Start: 06-30-2024 AFP, SERUM, OPEN SPI NA BIFIDA Melinda Keyona DO Work Phone: Start: 06-11-2024 Urnls dip stick/tabl et rgnt non-auto w/o micrscp Melinda Keyona DO Work Phone: Start: 06-11-2024 RECURRENT VAGINITIS (HTRX) Melinda Keyona DO Work Phone: Start: 05-08-2024 Urnls dip stick/tabl et rgnt non-auto w/o micrscp Melinda Keyona DO Work Phone: Start: 04-16-2024 ALL CBC WITH AUTO DIFF Melinda Keyona DO Work Phone: Start: 04-05-2024 End: 04-05-2024 Urnls dip stick/tablet rgnt non-auto w/o micrscp Melinda Rand DO Work Phone: Start: 06-04-2022 Extraction of Produc ts of Conception, Low Cervical, Open Approach DR MELINDA RAND Plan of Treatment Date Care Activity Detail Author Start: 08-09-2024 End: 08-09-2024 Patient encounter procedure 08/09/2024 9:10 AM EST Routine [facility] [address] [facility] [place] [id number] Melinda Rand, DO [address] [place], [place] [id number] [facility] Start: 07-31-2024 End: 07-31-2024 Patient encounter procedure 07/31/2024 1:00 PM EST Office Visit [facility] [address] [place] [address] Melinda Rand, DO [address] [place] [address] [place] [address] [facility] Start: 07-12-2024 End: 07-12-2025 CBC panel - Blood by Automated count CBC Lab Routine Diabetes mellitus screening Expected: 07/12/2024 (Approximate), Expires: 07/12/2025 [facility] Work Phone: Comment on above: Expected: 07/12/2024 (Approximate), Expires: 07/12/2025 Start: 07-12-2024 End: 07-12-2025 Measurement of glucose 1 hour after glucose challenge for glucose tolerance test Glucose tolerance, 1 hour Lab Routine Diabetes mellitus screening Expected: 07/12/2024 (Approximate), Expires: 07/12/2025 [facility] Comment on above: Expected: 07/12/2024 (Approximate), Expires: 07/12/2025 Start: 07-12-2024 End: 07-12-2024 Patient encounter procedure [facility] Comment on above: Arrived Start: 06-11-2024 End: 06-11-2024 Patient encounter procedure 06/11/2024 3:50 PM EST Routine [facility] [address] [place] [address] Melinda Rand DO [address] [place] [address] [facility] Start: 06-11-2024 End: 12-09-2024 [...] Start: 05-08-2024 End: 05-08-2024 Patient encounter procedure [facility] Comment on above: Arrived Start: 04-05-2024 End: 04-05-2025 ABO/Rh ABO/Rh Lab Routine Missed menses Expected: 04/05/2024 (Approximate), Expires: 04/05/2025 [facility] Comment on above: Expected: 04/05/2024 (Approximate), Expires: 04/05/2025 Start: 04-05-2024 End: 04-05-2025 Blood type and Indirect antibody screen panel - Blood Type and screen Lab Routine Missed menses Expected: 04/05/2024 (Approximate), Expires: 04/05/2025 [facility] Work Phone: Comment on above: Expected: 04/05/2024 (Approximate), Expires: 04/05/2025 Start: 04-05-2024 End: 04-05-2025 Drugs of abuse panel - Urine by Screen method Rapid drug screen, urine Lab Routine Encounter for supervision of normal first in first trimester , unspecified gestational age Expected: 04/05/2024 (Approximate), Expires: 04/05/2025 [facility] Comment on above: Expected: 04/05/2024 (Approximate), Expires: 04/05/2025 Start: 04-05-2024 End: 04-05-2025 US Pelvis transvaginal US OB transvaginal Imaging Routine Missed menses Expected: 04/05/2024 (Approximate), Expires: 04/05/2025 [facility] Comment on above: Expected: 04/05/2024 (Approximate), Expires: 04/05/2025 Bacteria identified in Urine by Culture Urine culture Microbiology Routine Missed menses Ordered: 04/05/2024 [facility] Comment on above: Ordered: 04/05/2024 CBC W Auto Different ial panel - Blood CBC and differential Lab Routine Missed menses Ordered: 04/05/2024 [facility] Comment on above: Ordered: 04/05/2024 CHLAMYDIA TRACHOMATI S (GENITO/STI) CHLAMYDIA TRACHOMATIS (GENITO/STI) Lab Routine STD exposure Ordered: 06/11/2024 [facility] Comment on above: Ordered: 06/11/2024 Hemoglobin A1c/Hemoglobin.total in Blood Hemoglobin A1c Lab Routine Missed menses Ordered: 04/05/2024 [facility] Comment on above: Ordered: 04/05/2024 Hepatitis B virus surface Ag [Presence] in Serum or Plasma by Immunoassay Hepatitis B surface antigen Lab Routine Missed menses Ordered: 04/05/2024 [facility] Comment on above: Ordered: 04/05/2024 Hepatitis C virus Ab [Presence] in Serum or Plasma by Immunoassay Hepatitis C antibody Lab Routine Missed menses Ordered: 04/05/2024 [facility] Comment on above: Ordered: 04/05/2024 HIV-1/HIV-2 antigen/antibody combination immunoassay HIV-1 and HIV-2 antibodies Lab Routine Missed menses Ordered: 04/05/2024 [facility] Comment on above: Ordered: 04/05/2024 Neisseria gonorrhoea e DNA [Presence] in Unspecified specimen by ALETHEA with probe detection Neisseria gonorrhea DNA probe, direct Lab Routine STD exposure Ordered: 06/11/2024 [facility] Comment on above: Ordered: 06/11/2024 Reagin Ab [Presence] in Serum by RPR RPR Lab Routine Missed menses Ordered: 04/05/2024 [facility] Comment on above: Ordered: 04/05/2024 Rubella antibody, IgG Rubella an tibody, IgG Lab Routine Missed menses Ordered: 04/05/2024 [facility] Comment on above: Ordered: 04/05/2024 SURESWAB(R) ADVANCED VAGINITIS PLUS, TMA SURESWAB(R) ADVANCED VAGINITIS PLUS, TMA Pathology and Cytology Routine Vaginal discharge Ordered: 06/11/2024 [facility] Work Phone: Comment on above: Ordered: 06/11/2024 Payers Date Payer Category Payer [facility] Care O (unspecified) [id number] 1991 Unknown [id number] 2.16.84 0.1.310639.3.579.2.593 1991 Unknown [id number] 2.16.84 0.1.482011.3.579.2.593 1991 Unknown [id number] 2.16.84 0.1.381420.3.579.2.593 1991 Unknown [id number] 2.16.84 0.1.272948.3.579.2.593 1991 Unknown [id number] 2.16.84 0.1.991436.3.579.2.593 1991 Unknown [id number] 2.16.84 0.1.513718.3.579.2.593 1991 Unknown [id number] 2.16.84 0.1.250599.3.579.2.593 1991 Unknown [id number] 2.16.84 0.1.310871.3.579.2.593 1991 Unknown [id number] 2.16.84 0.1.731523.3.579.2.593 1991 Unknown [id number] 2.16.84 0.1.233949.3.579.2.593 1991 Unknown [id number] 2.16.84 0.1.608401.3.579.2.593 1991 Unknown [id number] 2.16.84 0.1.673920.3.579.2.593 1991 Unknown [id number] 2.16.84 0.1.427597.3.579.2.593 1991 Unknown [id number] 2.16.84 0.1.217487.3.579.2.593 1991 Unknown [id number] 2.16.84 0.1.611453.3.579.2.593 1991 Unknown [id number] 2.16.84 0.1.505101.3.579.2.593 1991 Unknown [id number] 2.16.84 0.1.617551.3.579.2.593 1991 Unknown [id number] 2.16.84 0.1.103852.3.579.2.593 1991 Unknown [id number] 2.16.84 0.1.898346.3.579.2.593 1991 Unknown [id number] 2.16.84 0.1.473911.3.579.2.593 1991 Unknown [id number] 2.16.84 0.1.919105.3.579.2.593 1991 Unknown [id number] 2.16.840.1.374368.3.579.2.1259 1991 Unknown [id number] 2.16.840.1.391132.3.579.2.1259 1991 Unknown [id number] 2.16.840.1.814788.3.579.2.1259 1991 Unknown [id number] 2.16.840.1.393511.3.579.2.1259 1991 Unknown [id number] 2.16.840.1.405935.3.579.2.1259 1991 Unknown [id number] 2.16.840.1.667216.3.579.2.1259 1991 Unknown [id number] 2.16.840 .1.340801.3.579.2.1259 1959 Private Health Insurance [id number] Social History Date Type Detail Facility Start: 02-08-2023 [facility] Start: 02-08-2023 Tobacco use and exposure Smokeless t obacco non-user [facility] Start: 04-05-2024 End: 07-12-2024 Alcoholic beverage intake Lifetime non-drinker (finding) [facility] [...] health goal History of Present illness Narrative 07-12-2024 Miranda Parsons LPN - 07/12/2024 9:50 AM EST Note Date & Type Note Facility 07-12-2024 History of Presen t illness Narrative Reason [...] Known Problems Brother Diabetes Maternal Grandfather Bo Albright Cancer Paternal Grandmother Isis Cannon Arthritis [...] nursing note reviewed. Exam conducted with a medical scientist present. Vitals: Estimated body mass index is 29.39 kg/m as calculated from the following: Height as of 01/02/24: 5' 6 . Weight as of this encounter: 182 lb 1.9 oz. BP: 108/68 Patient's last menstrual period was 02/04/2024. ASSESSMENT & PLAN ICD-10-CM 1. Second trimester Z34.92 POCT urinalysis dipstick manually resulted 2. with normal glucose tolerance test (GTT) Z34.90 3. 22 weeks gestation of Z3A.22 POCT urinalysis dipstick manually resulted 4. Diabetes mellitus screening Z13.1 CBC Glucose tolerance, 1 hour CBC Glucose tolerance, 1 hour Patient presents today for a routine obstetrics appointment. Patient is currently 22w5d with a Estimated Date of Delivery: 11/10/24. Discussed anatomy scan results with patient and she is scheduled with [facility] for confirmation of complete placenta previa. Patient to return to clinic in 4 weeks for routine OB. Documented by Miranda Parsons LPN on behalf of: Melinda Rand DO documented in this encounter [facility] History of Present illness Narrative 06-11-2024 Miranda [...] Known Problems Brother Diabetes Maternal Grandfather Bo Albright Cancer Paternal Grandmother December Arthritis Paternal Grandmother December Hypertension Paternal Grandmother December SURGICAL HISTORY Past Surgical History: Procedure Laterality [...] nursing note reviewed. Exam conducted with a medical scientist present. Vitals: Estimated body mass index is [...] Known Problems Brother Diabetes Maternal Grandfather Bo Albright Cancer Paternal Grandmother Isis Cannon Arthritis [...] nursing note reviewed. Exam conducted with a medical scientist present. Vitals: Estimated body mass index is [...] or undercooked meat, and [facility]. Patient has been consulted regarding any [...] [facility] History of Present illness Narrative 04-05-2024 Janis Hylton - 04/05/2024 2:00 PM EDT Note Date & Type Note Facility 04-05-2024 History of Presen t illness Narrative Reason for Appointment: Patient ID: Anna Law is a 34 y.o. female who presents for Initial Visit Patient presents today for a Nurse OB Intake appointment. Patient is 8w5d with a Estimated Date of Delivery: 11/10/24 OB History Para Term AB Living 4 2 1 SAB IAB Ectopic Multiple Live Births # Outcome Date GA Lbr Earnest/2nd Weight Sex Type Anes PTL Lv 4 Current 3 2 AB 1 AB Current Medications: has a current medication list which includes the following prescription(s): vitamins and vitamins. Medical History: Active Ambulatory Problems Diagnosis Date Noted No Active Ambulatory Problems Resolved Ambulatory Problems Diagnosis Date Noted No Resolved Ambulatory Problems Past Medical History: Diagnosis Date History of miscarriage Short cervix Family History Problem Relation Name Age of Onset No Known Problems Brother Diabetes Maternal Grandfather Bo Albright Cancer Paternal Grandmother Isis Cannon Arthritis Paternal Grandmother Isis Cannon Hypertension Paternal Grandmother Isis Cannon Social History Tobacco Use Smoking status: Never Smokeless tobacco: Never Substance Use Topics Alcohol use: Never Drug use: Never Past Surgical History: Procedure Laterality Date SECTION, LOW TRANSVERSE DILATION AND CURETTAGE OF UTERUS 07/14/2020 PAP SMEAR 05/05/2020 Normal Allergies Allergen Reactions Hydrocodone-Acetaminophen GI intolerance and Unknown Vitals: Estimated body mass index is 27.76 kg/m as calculated from the following: Height as of 01/02/24: 5' 6 . Weight as of this encounter: 172 lb. BP: 118/68 Patient's last menstrual period was 02/04/2024. Assessment/Plan Diagnoses and all orders for this visit: Missed menses - Type and screen; Future - ABO/Rh; Future - CBC and differential - Hemoglobin A1c - RPR - Rubella antibody, IgG - Hepatitis B surface antigen - Hepatitis C antibody - HIV-1 and HIV-2 antibodies - Urine culture - US OB transvaginal; Future - POCT , urine manually resulted - POCT urinalysis dipstick manually resulted Encounter for supervision of normal first in first trimester - Rapid drug screen, urine; Future , unspecified gestational age - Rapid drug screen, urine; Future - Vit-Fe Fumarate-FA ( Vitamins) 28-0.8 MG tablet; Take 1 tablet by mouth Daily care, antepartum Nurse Note: OB Intake: Patient presents today for first OB visit. Patients history has been reviewed in great detail including any potential risks. Patient signed consent forms and patient desires testing in both trimesters. Patient currently has no complaints and has been advised to drink 6-8 glasses of water a day, eat no raw or undercooked meat, and [facility]. Patient has also been advised to not change litter boxes and eat 6 small meals a day. Patient has been consulted regarding the do's and don'ts of . Patient was given labs and all questions and concerns were answered. Follow Up: Patient is to return in 4 weeks for routine OB appointment. Follow Up: Patient is to have labs drawn at directed and return to office for initial OB appointment with provider. Patient may call office as needed with any concerns or questions. Nurse Visit Completed by: Janis Hylton documented in this encounter [facility] Clinical Note 06-04-2022 Note Date & Type Note Facility 06-04-2022 Note OPERATIVE NOTE OPERATION DATE: 06/04/2022 PROCEDURE: Primary low transverse section. PREOPERATIVE DIAGNOSIS: 1. Intrauterine at 37 5/7 weeks. 2. Breech presentation. POSTOPERATIVE DIAGNOSIS: 1. Intrauterine at 37 5/7 weeks. 2. Breech presentation. 3. 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 SURGEON: Melinda Rand EMBALMER ASSISTANT: SCARLET Albert URINE OUTPUT: Yellow and clear. [...] the Recovery Room in stable condition. [facility] Evaluation note Note Date & Type Note Facility Evaluation note Diagnosis 13 weeks gestation of Second trimester state, incidental documented in this encounter [facility] Evaluation note Note Date & Type Note Facility Evaluation note Diagnosis Second trimester state, incidental 18 weeks gestation of Vaginal discharge Leukorrhea, not specified as infective STD exposure Screening, , for anatomic survey Encounter for anatomic survey documented in this encounter [facility] Evaluation note Note Date & Type Note Facility Evaluation note Diagnosis Missed menses Encounter for supervision of normal first in first trimester , unspecified gestational age care, antepartum documented in this encounter [facility] Evaluation note Note Date & Type Note Facility Evaluation note Diagnosis Second trimester state, incidental with normal glucose tolerance test (GTT) 22 weeks gestation of Diabetes mellitus screening Screening for diabetes mellitus documented in this encounter [facility] Summary Purpose Family History No Family History Records FoundNo Family History Records Found Advance Directives No Advanced Directives Records FoundNo Advanced Directives Records Found Additional Source Comments INFORMATION SOURCE (unrecogn ized section and content) DATE CREATED AUTHOR 06/14/2022 [facility] DATE CREATED AUTHOR AUTHOR'S ORGANIZ ATION 07/15/2024 [facility] [employer] Care Teams (unrecognized sec tion and content) Laundry Technician Relationship Specialty Start Date End Date Fito Cueto MD [address] [place] [address] PCP - General Family Medicine 02/09/23 Laundry Technician Relationship Specialty Start Date End Date Fito Cueto MD [address] [place] [address] PCP - General Family Medicine 02/09/23 Laundry Technician Relationship Specialty Start Date End Date Fito Cueto MD [address] [facility] [place] [address] PCP - General Family Medicine 02/09/23 Laundry Technician Relationship Specialty Start Date End Date Fito Cueto MD [address] [facility] [place] [address] PCP - General Family Medicine 02/09/23 Laundry Technician Relationship Specialty Start Date End Date Fito Cueto MD [address] [facility] [place] [address] PCP - General Family Medicine 02/09/23 Laundry Technician Relationship Specialty Start Date End Date Fito Cueto MD [address] [facility] [place] [address] PCP - General Family Medicine 02/09/23 Laundry Technician Relationship Specialty Start Date End Date Fito Cueto MD [address] [place] [address] PCP - General Family Medicine 02/09/23 Reason for Visit (unrecogniz ed section and content) Reason Comments Routine Visit Reason Comments Well Women Visit Routine Visit STI Screening Reason Comments Initial Visit FOR RECORDS PERTAINING TO PATIENTS WHO ARE [...] BE BASED ON THE PRIMARY CLINICAL RECORDS. [facility]. provides no warranty or guarantee of the accuracy or completeness of information in this document.
[2024-07-21 08:02] LABS: Basophils Percent Auto 0.2 % (0.2-2.0); Eosinophils Absolute Auto 0.1 10^3/uL (0.0-0.7); Eosinophils Percent Auto 1.2 % (0.9-7.0); Hematocrit 34.2 % (36.0-48.0); Hemoglobin 11.4 g/dL (12.0-16.0); Immature Granulocytes Abs Auto 0.08 10^3/uL (0.00-0.03); Immature Granulocytes Pct Auto 0.9 % (0.0-0.5); Lymphocytes Absolute Auto 1.4 10^3/uL (1.2-3.8); Lymphocytes Percent Auto 15.5 % (20.5-60.0); Mean Corpuscular HGB Conc 33.3 g/dL (29.9-35.2); Mean Corpuscular Volume 96.1 fL (81.0-99.0); Mean Platelet Volume 9.5 fL (9.5-13.5); Monocytes Absolute Auto 0.5 10^3/uL (0.3-0.8); Monocytes Percent Auto 5.5 % (1.7-12.0); Neutrophils Absolute Auto 7.2 10^3/uL (1.4-6.5); Neutrophils Percent Auto 76.7 % (43.0-75.0); Platelet Count 208 10^3/uL (150-450); Red Blood Count 3.56 10^6/uL (4.20-5.40); Red Cell Distribution Width 13.4 % (11.0-15.0); White Blood Count 9.3 10^3/uL (4.0-11.0)
[2024-07-21 08:34] LABS: Glucose 1 Hour 154 mg/dL (<130)
== END 2024-07-21 06:41 | disposition home or self-care (01) ==
LOC: LAB 06:40
PROVIDERS: Visit Provider Obstetrics & Gynecology
DX: Z13.1 Encounter for screening for diabetes mellitus (principal)
CPT/HCPCS: 36415; 82950; 85025

== ENCOUNTER 2024-07-28 06:32 | Outpatient (OUT) | payer OTHER, SELFPAY ==
[2024-07-28 07:01] LABS: Glucose Fasting 87 mg/dL (<95)
[2024-07-28 07:55] LABS: Glucose 1 Hour 199 mg/dL (<180)
[2024-07-28 09:21] LABS: Glucose 2 Hour 173 mg/dL (<155)
[2024-07-28 09:56] LABS: Glucose 3 Hour 94 mg/dL (<140)
== END 2024-07-28 06:33 | disposition home or self-care (01) ==
LOC: LAB 06:33
PROVIDERS: Visit Provider Obstetrics & Gynecology
DX: R73.09 Other abnormal glucose (principal)
CPT/HCPCS: 36415; 82951; 82952

== ENCOUNTER 2024-09-04 01:11 | Outpatient (OUT) | payer OTHER, SELFPAY ==
--- OUTSIDE RECORDS SUMMARY | 2024-09-04 01:16 | XMS_ITS | CCD ---
Author Organization [facility] Care Team Providers Care Iridologist Name Role Phone KEYONA, DR LAWRENCE Admitting [...] Attending Unavailable TELLY, DR PENNINGTON Consulting Unavailable BOSTON, DR RIGO [place] Consulting Unavailable KEYONA, DR LAWRENCE Consulting Unavailable Bandar Cueto MDishna Primary Care Provider [phone] KEYONA, LEE Attending Unavailable KEYONA, LEE Attending Unavailable KEYONA, LEE Attending Unavailable KEYONA, LEE Attending Unavailable EKYONA, LEE Attending Unavailable KEYONA, LEE Attending Unavailable KEYONA, LEE Attending Unavailable Allergies Allergy Classification Reported Allergen(s) Allergy Type Date of Onset Reaction(s) Facility (2 sources) Acetaminophen / HYDROcodone Drug Allergy [facility] Rep[facility] Medications Current Medications Medication Drug Class(es) Dates Sig (Normalized) Sig (Original) aspirin 81 mg delayed release oral tablet (2 sources) Platelet Aggregation Inhibitor, Nonsteroidal Anti-inflammatory Drug take 1 tablet by mouth once daily aspirin 81 MG EC tablet Take 81 mg by mouth Daily Active Blood Glucose Monitoring Suppl (D-Care Glucometer) w/Device kit (5 sources) Start: 08-09-2024 End: 08-09-2025 Blood Glucose Monitoring Suppl (D-Care Glucometer) w/Device kit Indications: Elevated glucose tolerance test 1 kit Daily Use four times daily to check FSBS. In the morning prior to breakfast & 1 hour after each meal for a total of 4times daily. 1 kit 08/09/2024 08/09/2025 Active folic acid 1 mg oral tablet (17 sources) take 1 tablet by mouth once daily folic acid (Folvite) 1 MG tablet Take 1 mg by mouth 1 (one) time each day at the same time Active isopropyl alcohol 0.7 ml/ml medicated pad (5 sources) Start: 08-09-2024 Alcohol Swabs (Alcohol Prep Pad) 70 % pads Indications: Elevated glucose tolerance test Apply 1 Pad topically Daily Use four times daily to check FSBS. 150 each 3 08/09/2024 Active Vit-Fe Fumarate-FA ( Vitamins) 28-0.8 MG tablet (20 sources) Start: 07-30-2024 take 1 tablet by mouth once daily Vit-Fe Fumarate-FA ( Vitamins) 28-0.8 MG tablet Indications: care, antepartum TAKE 1 TABLET BY MOUTH DAILY AT THE SAME TIME EACH DAY 30 tablet 3 07/30/2024 Active Start: 04-05-2024 End: 05-08-2024 take 1 tablet [...] EACH DAY 30 tablet 3 10/13/2023 Active Completed/Discontinued Medications Medication Drug Class(es) Dates Sig (Normalized) Sig (Original) nitrofurantoin, macrocrystals 25 mg / nitrofurantoin, monohydrate 75 mg oral capsule (2 sources) Nitrofuran Antibacterial Start: 08-20-2024 End: 08-29-2024 take 1 capsule by mouth in the morning nitrofurantoin, macrocrystal-monoh ydrate, (Macrobid) 100 MG capsule Indications: UTI symptoms Take 1 capsule (100 mg) by mouth in the morning and 1 capsule (100 mg) before bedtime. Do all this for 7 days. 14 capsule 08/20/2024 08/29/2024 Discontinued Problems Active Problems Problem Classification Problem Date Documented Date Episodic/Chronic Diabetes mellitus without complication (2 sources) Abnormal glucose tolerance test; Translations: [Other abnormal glucose] 08-09-2024 Episodic Diabetes or abnormal glucose tolerance complicating ; childbirth; or the puerperium (2 sources) Gestational diabetes mellitus; Translations: [Gestational diabetes mellitus in , diet controlled] 08-29-2024 Episodic Genitourinary congenital anomalies (1 source) Congenital malformation [...] [22 weeks gestation of ] 07-12-2024 Episodic Residual codes; unclassified (2 sources) Gestation period, 26 weeks; Translations: [26 weeks gestation of ] 08-09-2024 Episodic Residual codes; unclassified (2 sources) Gestation period, 29 weeks; Translations: [29 weeks gestation of ] 08-29-2024 Episodic Unclassified (1 source) CONTACT W/AND (SUSP) EXPOS COVID-19; Translations: [CONTACT W/AND (SUSP) EXPOS COVID-19] Onset: 06-14-2022 Unclassified (18 sources) OB Reminders Onset: 04-23-2024 04-23-2024 Past [...] Range Facility Urinalysis macro (dipstick) panel (U)on 08-29-2024 Bilirubin, UA Negative Negative - 4(70) +++ mg/dL [facility] Blood, UA Positive Negative - 50 Yang/mcL [facility] Comment on above: trace-intact Clarity, UA Clear [facility] Color, UA Yellow [facility] Glucose, UA Negative Negative - 2000(110) ++++ mg/dL [facility] Interpretation and review of laboratory results Abnormal [facility] Ketones, UA Positive Negative - 160(16) ++++ mg/dL [facility] Comment on above: 40 Leukocytes, UA Trace Negative - 500+++ Derik/mcL [facility] Nitrite, UA Negative Negative - Positive [facility] pH, UA 5.5 5 - [address] [facility] Protein, UA Trace Negative - 2000(20) ++++ mg/dL [facility] Spec Grav, UA 1.025 1 - 1.[address] [facility] Urobilinogen, UA 1.0 0.2 - 12 mg/dL [facility] GLUCOSE TOLERANCE 3 HOURon 0 07-28-2024 GLUCOSE TOLERANCE 3 HOUR High mg/dL [facility] Comment on above: GLU FAST 87 (<95) Co l: 07/28/24 0638 GLU 1HR 199H (<180) Col: 07/28/24 0739 GLU 2HR 173H (<155) Col: 07/28/24 0839 GLU 3HR 94 (<140) Col: 07/28/24 0939 Interpretation and review of laboratory results Abnormal [facility] GLUCOSE 1 HOURon 07-21-2024 Glucose [Mass/Vol] 154 mg/dL High NINF - 13 0 mg/dL [facility] Interpretation and review of laboratory results Abnormal [facility] Urinalysis macro (dipstick) panel (U)on 07-12-2024 Bilirubin, UA Negative Negative - 4(70) +++ mg/dL [facility] Blood, UA Negative Negative - 50 Yang/mcL [facility] Clarity, UA Clear [facility] Color, UA Yellow [facility] Glucose, UA Negative Negative - 2000(110) ++++ mg/dL [facility] Interpretation and review of laboratory results Normal [facility] Ketones, UA Negative Negative - 160(16) ++++ mg/dL [facility] Leukocytes, UA Negative Negative - 500+++ Derik/mcL [facility] Nitrite, UA Negative Negative - Positive [facility] pH, UA 7 5 - [address] [facility] Protein, UA Negative Negative - 2000(20) ++++ mg/dL [facility] Spec Grav, UA 1.02 1 - 1.[address] [facility] Urobilinogen, UA 1.0 0.2 - 12 mg/dL [facility] AFP, SERUM, OPEN SPINA BIFID Aon 07-04-2024 AFP MOM 1.[address] [facility] AFP VALUE 91.9 ng/mL . [facility] COMMENT: Comment . [facility] Comment on above: Sonia Sullivan , Ph.D., [facility] Director References: Available Upon Request. Multiples Of Median Cutoffs For AFP Elevations Bhandari 2.5 Black 2.8 IDD 2.0 Twins 4.5 Abbreviation Definitions IDD - Insulin Dep Diabetes OSBR - Open Spina Bifida Risk For further inquiries contact [employer] at [phone]. This test was developed and its performance characteristics determined by [facility]. It has not been cleared or approved by the Food and Drug Administration. Performed at: [facility] [address], [place] [id number] Exploration Geologist: Francis Boyd [facility], Phone: [phone] GEST. AGE ON COLLECTION DATE 21.0 . weeks [facility] GESTAT. AGE BASED ON LMP . [facility] Comment on above: Recalculations are n ot recommended when gestational dating by LMP and ultrasound are within 10 days. INSULIN DEP DIABETES No . [facility] INTERPRETATION Comment . [facility] Comment on above: Interpretation: Scre en Negative [...] Customer Services to discuss available options. The [employer] recommends amniocentesis be offered to women age 35 and older. [age] . [age] [facility] MULTIPLE GESTATION No . [facility] OSBR RISK 1 IN [address] . [facility] RACE . [facility] RESULTS Report . [facility] TEST RESULTS: Negative . [facility] WEIGHT 177 . lbs [facility] N LMP [id number] 2 18 N 1 Y 177 N N N White/ [facility] RECURRENT VAGINITIS (HTRX)on 06-13-2024 ATOPOBIUM VAGINAE 30.[address] [facility] ATOPOBIUM VAGINAE Detected Abnormal [facility] BVAB 2,3 (BACTERIAL VAGINOSIS ASSOCIATED BACTERIA 2, 3); MOBILUNCUS SPP [address] [facility] BVAB 2,3 (BACTERIAL VAGINOSIS ASSOCIATED BACTERIA 2, 3); MOBILUNCUS SPP Not detected [facility] KAITLYNN ALBICANS, PARAPSILOSIS, TROPICALIS [address] [facility] KAITLYNN ALBICANS, PARAPSILOSIS, TROPICALIS Not detected [facility] KAITLYNN GLABRATA [address] [facility] KAITLYNN GLABRATA Not detected [facility] KAITLYNN KRUSEI [address] [facility] KAITLYNN KRUSEI Not detected [facility] CHLAMYDIA TRACHOMATIS [address] [facility] CHLAMYDIA TRACHOMATIS Not detected [facility] GARDNERELLA VAGINALIS 21.[address] [facility] GARDNERELLA VAGINALIS Detected Abnormal [facility] Interpretation and review of laboratory results Abnormal [facility] MEGASPHAERA (TYPES 1, 2) [address] [facility] MEGASPHAERA (TYPES 1, 2) Not detected [facility] MYCOPLASMA GENITALIUM [address] [facility] MYCOPLASMA GENITALIUM Not detected [facility] NEISSERIA GONORRHOEAE [address] [facility] NEISSERIA GONORRHOEAE Not detected [facility] TRICHOMONAS VAGINALIS [address] [facility] TRICHOMONAS VAGINALIS Not detected [facility] Urinalysis macro (dipstick) panel (U)on 06-11-2024 Bilirubin, UA Negative Negative - 4(70) +++ mg/dL [facility] Blood, UA Negative Negative - 50 Yang/mcL [facility] Clarity, UA Clear [facility] Color, UA Yellow [facility] Glucose, UA Negative Negative - 1999(110) ++++ mg/dL [facility] Interpretation and review of laboratory results Normal [facility] Ketones, UA Negative Negative - 160(16) ++++ mg/dL [facility] Leukocytes, UA Negative Negative - 500+++ Derik/mcL [facility] Nitrite, UA Negative Negative - Positive [facility] pH, UA 5.5 5 - [address] [facility] Protein, UA Negative Negative - 1999(20) ++++ mg/dL [facility] Spec Grav, UA 1.02 1 - 1.[address] [facility] Urobilinogen, UA 1.0 0.2 - 12 mg/dL [facility] Urinalysis macro (dipstick) panel (U)on 05-08-2024 Bilirubin, UA Negative Negative - 4(70) +++ mg/dL [facility] Blood, UA Positive Negative - 50 Yang/mcL [facility] Comment on above: trace-intact Clarity, UA Clear [facility] Color, UA Yellow [facility] Glucose, UA Negative Negative - 1999(110) ++++ mg/dL [facility] Interpretation and review of laboratory results Abnormal [facility] Ketones, UA Negative Negative - 160(16) ++++ mg/dL [facility] Leukocytes, UA Negative Negative - 500+++ Derik/mcL [facility] Nitrite, UA Negative Negative - Positive [facility] pH, UA 6 5 - [address] [facility] Protein, UA Negative Negative - 1999(20) ++++ mg/dL [facility] Spec Grav, UA 1.025 1 - 1.[address] [facility] Urobilinogen, UA 0.2 0.2 - 12 mg/dL [facility] ALL CBC WITH AUTO DIFFon BASOPHILS ABSOLUTE AUTO 0.[address] [facility] Basophils/100 WBC (Bld) 0.4 % 0.2 - 2.0 % [facility] Eosinophils/100 WBC (Bld) 0.9 % 0.9 - 7.0 % [facility] Erythrocyte distribution width (RBC) [Ratio] 11.9 % 11.0 - 15.0 % [facility] Hematocrit (Bld) [Volume fraction] 37.1 % 36.0 - 48.0 % [facility] Hemoglobin (Bld) [Mass/Vol] 12.6 g/dL 12.0 - 16.0 g/dL [facility] IMMATURE GRANULOCYTES ABS AUTO 0.[address] [facility] Immature granulocytes/100 WBC (Bld) 0.4 % 0.0 - 0.5 % [facility] Interpretation and review of laboratory results Abnormal [facility] LYMPHOCYTES ABSOLUTE AUTO 1.[address] [facility] Lymphocytes/100 WBC (Bld) 21.2 % 20.5 - 60.0 % [facility] MCH (RBC) [Entitic mass] 31.7 pg 26.7 - 34.[address] [facility] MCHC (RBC) [Mass/Vol] 34.0 g/dL 29.9 - 35.2 g/dL [facility] MCV (RBC) [Entitic vol] 93.5 fL 81.0 - 99.[address] [facility] MONOCYTES ABSOLUTE AUTO 0.[address] [facility] Monocytes/100 WBC (Bld) 6.8 % 1.7 - 12.0 % [facility] NEUTROPHILS ABSOLUTE AUTO 5.[address] [facility] Neutrophils/100 WBC (Bld) 70.3 % 43.0 - 75.0 % [facility] Platelet mean volume (Bld) [Entitic vol] 9.8 fL 9.5 - 13.[address] [facility] TBH EO # 0.[address] [facility]H PLT [address] [facility] TB RBC 3.[address] [facility] TB WBC 8.[address] [facility] HCG ( test) Ql (U)o n 04-05-2024 Interpretation and review of laboratory results Abnormal [facility] Preg Test, Ur Positive [facility] Urinalysis macro (dipstick) panel (U)on 04-05-2024 Bilirubin, UA Negative Negative - 4(70) +++ mg/dL [facility] Blood, UA Positive Negative - 50 Yang/mcL [facility] Comment on above: trace intact Clarity, UA Clear [facility] Color, UA Yellow [facility] Glucose, UA Negative Negative - 1999(110) ++++ mg/dL [facility] Interpretation and review of laboratory results Abnormal [facility] Ketones, UA Negative Negative - 160(16) ++++ mg/dL [facility] Leukocytes, UA Trace Negative - 500+++ Edrik/mcL [facility] Nitrite, UA Negative Negative - Positive [facility] pH, UA 6.5 5 - [address] [facility] Protein, UA Negative Negative - 1999(20) ++++ mg/dL [facility] Spec Grav, UA 1.015 1 - 1.[address] [facility] Urobilinogen, UA 0.2 0.2 - 12 mg/dL [facility] CBC AUTO DIFFon 06-05-2022 BASO # 0.0 103/ul Normal 0.0-0.1 [facility] Comment on above: Performed By: #### C BC #### [facility] [address] [place] [address] Dr. Sandi Michelle Basophils/100 WBC (Bld) 0.2 % Normal 0.2-2.0 [facility] Comment on above: Performed By: #### C BC #### [facility] [address] [place] [address] Dr. Sandi Michelle EO # 0.0 103/ul Normal 0.0-0.7 [facility] Comment on above: Performed By: #### C BC #### [facility] [address] [place] [address] Dr. Sandi Michelle Eosinophils/100 WBC (Bld) 0.2 % Critically low 0.9-7.0 [facility] Comment on above: Performed By: #### C BC #### [facility] [address] [place] [address] Dr. Sandi Michelle Erythrocyte distribution width (RBC) [Ratio] 14.3 % Normal 11.0-15.0 [facility] Comment on above: Performed By: #### C BC #### [facility] [address] [place] [address] Dr. Sandi Michelle Hematocrit (Bld) [Volume fraction] 27.3 % Critically low 36.0-48.0 [facility] Comment on above: Performed By: #### C BC #### [facility] [address] [place] [address] Dr. Sandi Michelle Hemoglobin (Bld) [Mass/Vol] 9.3 g/dL Critically low 12.0-16.0 [facility] Comment on above: Result Comment: DELI VERY Performed By: #### C BC #### [facility] [address] [place] [address] Dr. Sandi Michelle IG # 0.14 10e3/ul Critically high 0.00-0.03 [facility] Comment on above: Performed By: #### C BC #### [facility] [address] [place] [address] Dr. Sandi Michelle IG % 1.1 % Critically high 0.0-0.5 [facility] Comment on above: Performed By: #### C BC #### [facility] [address] [place] [address] Dr. Sandi Michelle LYMPH # 1.6 103/ul Normal 1.2-3.8 [facility] Comment on above: Performed By: #### C BC #### [facility] [address] [place] [address] Dr. Sandi Michelle Lymphocytes/100 WBC (Bld) 12.1 % Critically low 20.5-60.0 [facility] Comment on above: Performed By: #### C BC #### [facility] [address] [place] [address] Dr. Sandi Michelle MANUAL DIFF REQ NO Normal [facility] Comment on above: Performed By: #### C BC #### [facility] [address] [place] [address] Dr. Sandi Michelle MCH (RBC) [Entitic mass] 31.8 pg Normal 26.7-34.0 [facility] Comment on above: Performed By: #### C BC #### [facility] [address] [address] [address] Sandi Michelle MCHC (RBC) [Mass/Vol] 34.1 g/dL Normal 29.9-35.2 [facility] Comment on above: Performed By: #### C BC #### [facility] [address] [address] [address] Sandi Michelle MCV (RBC) [Entitic vol] 93.5 fL Normal 81.0-99.0 [facility] Comment on above: Performed By: #### C BC #### [facility] [address] [address] [address] Sandi Michelle MONO # 0.9 103/ul Critically high 0.3-0.8 [facility] Comment on above: Performed By: #### C BC #### [facility] [address] [address] [address] Sandi Michelle Monocytes/100 WBC (Bld) 6.8 % Normal 1.7-12.0 [facility] Comment on above: Performed By: #### C BC #### [facility] [address] [address] [address] Sandi Michelle NEUT # 10.3 103/ul Critically high 1.4-6.5 [facility] Comment on above: Performed By: #### C BC #### [facility] [address] [address] [address] Sandi Michelle Neutrophils/100 WBC (Bld) 79.6 % Critically high 43.0-75.0 [facility] Comment on above: Performed By: #### C BC #### [facility] [address] [address] [address] Sandi Michelle Platelet mean volume (Bld) [Entitic vol] 9.8 fL Normal 9.5-13.5 [facility] Comment on above: Performed By: #### C BC #### [facility] [address] [address] [address] Sandi Michelle PLT 138 103/ul Critically low 150-450 [facility] Comment on above: Performed By: #### C BC #### [facility] [address] [address] [address] Sandi Michelle RBC 2.92 106/ul Critically low 4.20-5.40 [facility] Comment on above: Performed By: #### C BC #### [facility] [address] [address] [address] Sandi Michelle WBC 12.9 103/ul Critically high 4.0-11.0 [facility] Comment on above: Performed By: #### C BC #### [facility] [address] [place] [address] Dr. Sandi Michelle CBC AUTO DIFFon 06-04-2022 BASO # 0.0 103/ul Normal 0.0-0.1 [facility] Comment on above: Performed By: #### C BC #### [facility] [address] [place] [address] Dr. Sandi Michelle Basophils/100 WBC (Bld) 0.3 % Normal 0.2-2.0 [facility] Comment on above: Performed By: #### C BC #### [facility] [address] [place] [address] Dr. Sandi Michelle EO # 0.0 103/ul Normal 0.0-0.7 [facility] Comment on above: Performed By: #### C BC #### [facility] [address] [place] [address] Dr. Sandi Michelle Eosinophils/100 WBC (Bld) 0.1 % Critically low 0.9-7.0 [facility] Comment on above: Performed By: #### C BC #### [facility] [address] [place] [address] Dr. Sandi Michelle Erythrocyte distribution width (RBC) [Ratio] 14.4 % Normal 11.0-15.0 [facility] Comment on above: Performed By: #### C BC #### [facility] [address] [place] [address] Dr. Sandi Michelle Hematocrit (Bld) [Volume fraction] 37.2 % Normal 36.0-48.0 [facility] Comment on above: Performed By: #### C BC #### [facility] [address] [address] [address] Sandi Michelle Hemoglobin (Bld) [Mass/Vol] 12.9 g/dL Normal 12.0-16.0 [facility] Comment on above: Performed By: #### C BC #### [facility] [address] [address] [address] Sandi Michelle IG # 0.23 10e3/ul Critically high 0.00-0.03 [facility] Comment on above: Performed By: #### C BC #### [facility] [address] [address] [address] Sandi Michelle IG % 1.6 % Critically high 0.0-0.5 [facility] Comment on above: Performed By: #### C BC #### [facility] [address] [place] [address] Dr. Sandi Michelle LYMPH # 2.3 103/ul Normal 1.2-3.8 [facility] Comment on above: Performed By: #### C BC #### [facility] [address] [place] [address] Dr. Sandi Michelle Lymphocytes/100 WBC (Bld) 16.0 % Critically low 20.5-60.0 [facility] Comment on above: Performed By: #### C BC #### [facility] [address] [place] [address] Dr. Sandi Michelle MANUAL DIFF REQ NO Normal [facility] Comment on above: Performed By: #### C BC #### [facility] [address] [place] [address] Dr. Sandi Michelle MCH (RBC) [Entitic mass] 32.3 pg Normal 26.7-34.0 [facility] Comment on above: Performed By: #### C BC #### [facility] [address] [place] [address] Dr. Sandi Michelle MCHC (RBC) [Mass/Vol] 34.7 g/dL Normal 29.9-35.2 [facility] Comment on above: Performed By: #### C BC #### [facility] [address] [address] [address] Sandi Michelle MCV (RBC) [Entitic vol] 93.0 fL Normal 81.0-99.0 [facility] Comment on above: Performed By: #### C BC #### [facility] [address] [place] [address] Dr. Sandi Michelle MONO # 0.8 103/ul Normal 0.3-0.8 [facility] Comment on above: Performed By: #### C BC #### [facility] [address] [place] [address] Dr. Sandi Michelle Monocytes/100 WBC (Bld) 5.8 % Normal 1.7-12.0 [facility] Comment on above: Performed By: #### C BC #### [facility] [address] [place] [address] Dr. Sandi Michelle NEUT # 10.7 103/ul Critically high 1.4-6.5 [facility] Comment on above: Performed By: #### C BC #### [facility] [address] [place] [address] Dr. Sandi Michelle Neutrophils/100 WBC (Bld) 76.2 % Critically high 43.0-75.0 [facility] Comment on above: Performed By: #### C BC #### [facility] [address] [place] [address] Dr. Sandi Michelle Platelet mean volume (Bld) [Entitic vol] 10.9 fL Normal 9.5-13.5 [facility] Comment on above: Performed By: #### C BC #### [facility] [address] [place] [address] Dr. Sandi Michelle PLT 194 103/ul Normal 150-450 [facility] Comment on above: Performed By: #### C BC #### [facility] [address] [place], [place] [id number] Dr. Sandi Michelle RBC 4.00 106/ul Critically low 4.20-5.40 [facility] Comment on above: Performed By: #### C BC #### [facility] [address] [place] [address] Dr. Sandi Michelle WBC 14.0 103/ul Critically high 4.0-11.0 [facility] Comment on above: Performed By: #### C BC #### [facility] [address] [place], [place] [address] Dr. Sandi Michelle Covid-19 PCR ([facility])on 05-25 SARS-CoV-2 (COVID-19) RNA ALETHEA+probe Ql (Unsp spec) Not detected Normal NOT DETECTED [facility] Comment on above: Result Comment: When diagnostic [...] for this test is supported by the [employer] and Human Service's declaration that [...] be used). Performed By: #### C VDTBH ####[facility] [id number] [id number] Sandi Michelle DRUG SCREEN RAPID (URINE)on 06-04-2022 AMP Negative Normal NEGATIVE [facility] Comment on above: Performed By: #### D RUGRPD ####[facility] [id number] [place], [place] [address]Ni. Sandi Michelle BAR Negative Normal NEGATIVE [facility] Comment on above: Performed By: #### D RUGRPD ####[facility] [address] [place] [id number]. Sandi Michelle BUP Negative Normal NEGATIVE [facility] Comment on above: Performed By: #### D RUGRPD ####[facility] [address] [place] [id number]. Sandi Michelle BZO Negative Normal NEGATIVE [facility] Comment on above: Performed By: #### D RUGRPD ####[facility] Fcw[address] [place], [place] [address]Dr. Sandi Michelle NINO Negative Normal NEGATIVE [facility] Comment on above: Performed By: #### D RUGRPD ####[facility] [address] [place], [place] [address]Dr. Sandi Michelle CUT-OFFS SEE BELOW Normal [facility] Comment on above: Result Comment: AMP (Amphetamine): 500ng/mL, BAR (Barbituates): 200 ng/mL, BZO (Benzodiazepines): 150 ng/mL, BUP (Buprenorphine): 10 ng/mL, NINO (Cocaine): 150 ng/mL, mAMP (Methamphetamine): 500 ng/mL, MTD (Methadone): 200 ng/mL, OPI (Opiates): 100 ng/mL, OXY (Oxycodone): 100 ng/mL, PCP (Phencyclidine): 25 ng/mL, PPX (Propoxyphene): 300 ng/mL, THC (Cannabinoids): 50 ng/mL, TCA (Trycyclic Antidepressants): 300 ng/mL Performed By: #### D RUGRPD ####[facility] [address] [place], [place] [address]Dr. Sandi Michelle DRUG CUT HEADER DRUG CLASS TEST SYSTEM CUT-OFF CONCENTRATIONS ARE FOLLOWS: Normal [facility] Comment on above: Performed By: #### D RUGRPD ####[facility] [address] [place], [place] [address]Dr. Sandi Michelle mAMP Negative Normal NEGATIVE [facility] Comment on above: Performed By: #### D RUGRPD ####[facility] [address] [place], [place] [address]Dr. Sandi Michelle MTD Negative Normal NEGATIVE [facility] Comment on above: Performed By: #### D RUGRPD ####[facility] [address] [place], [place] [address]Dr. Sandi Michelle OPI Negative Normal NEGATIVE [facility] Comment on above: Performed By: #### D RUGRPD ####[facility] [address] [place] [id number]. Sandi Michelle OXY Negative Normal NEGATIVE [facility] Comment on above: Performed By: #### D RUGRPD ####[facility] [address] [place] [phone]. Sandi Michelle PCP Negative Normal NEGATIVE [facility] Comment on above: Performed By: #### D RUGRPD ####[facility] [address] [place] [phone]. Sandi Michelle PPX Negative Normal NEGATIVE [facility] Comment on above: Performed By: #### D RUGRPD ####[facility] [address] [place] [address]Dr. Sandi Michelle TCA Negative Normal NEGATIVE [facility] Comment on above: Performed By: #### D RUGRPD ####[facility] [address] [place] [phone]. Sandi Michelle THC Negative Normal NEGATIVE [facility] Comment on above: Performed By: #### D RUGRPD ####[facility] [address] [place] [phone]. Sandi Michelle TYPE AND SCREENon 06-04-2022 TYPE AND SCREEN Negative Normal [facility] Comment on above: Performed By: #### T NS ####[facility] [address] [place], [place] [address]Dr. Sandi Michelle US PREG BIOPHY W NON [...] RIGO FISCHER Date: 2022-05-30 08:30 Normal [facility] GROUP B STREP CULTUREon 2 S. agalactiae Ag Ql (Unsp spec) Culture Observations: NEGATIVE FOR GROUP B STREPTOCOCCUS. Normal [facility] Comment on above: Performed By: #### G BSCX ####[facility] [address] [place], [place] [address]GvDen Michelle US PREG BIOPHY W NON STRESSo [...] by: RIGO FISCHER Date: 2022-05-23 09:41 Normal [facility] US PREG BIOPHY W NON STRESSo [...] by: RIGO FISCHER Date: 2022-05-16 16:10 Normal [facility] US PREG GROWTHon 05-11-2022 US PREG GROWTH EXAMINATION: US PREG GROWTH, US PREG CERVICAL LENGTH HISTORY: Excessive growth affecting management of mother COMPARISON: Ultrasound growth 04/27/2022 FINDINGS: Heart Rate: 137.8 bpm (accession [id number]), 167.3 bpm (accession [id number]) Number: 1.0 Position: BREECH Amniotic Fluid Volume: [...] by: TIFF URIBE Date: 2022-05-11 19:19 Normal [facility] US PREG GROWTHon 04-27-2022 US PREG [...] by: TIFF URIBE Date: 2022-04-27 20:51 Normal [facility] GLUCOSE - 1HRon 03-15-2022 Glucose [Mass/Vol] 137 mg/dL Critically high 74-106 T [facility] Comment on above: Performed By: #### C BC #### [facility] [address] [place] [address] Dr. Sandi Michelle HEMOGRAM AND PLATELon 2021 Hematocrit (Bld) [Volume fraction] 34.9 % Critically low 36.0-48.0 [facility] Comment on above: Performed By: #### C BC #### [facility] [address] [place] [address] Dr. Sandi Michelle Hemoglobin (Bld) [Mass/Vol] 11.5 g/dL Critically low 12.0-16.0 [facility] Comment on above: Performed By: #### C BC #### [facility] [address] [place] [address] Dr. Sandi Michelle MCH (RBC) [Entitic mass] 31.8 pg Normal 26.7-34.0 [facility] Comment on above: Performed By: #### C BC #### [facility] [address] [place] [address] Dr. Sandi Michelle MCHC (RBC) [Mass/Vol] 33.0 g/dL Normal 29.9-35.2 [facility] Comment on above: Performed By: #### C BC #### [facility] [address] [place] [address] Dr. Sandi Michelle MCV (RBC) [Entitic vol] 96.4 fL Normal 81.0-99.0 [facility] Comment on above: Performed By: #### C BC #### [facility] [address] [place] [address] [address] Sandi Michelle PLT 225 103/ul Normal 150-450 [facility] Comment on above: Performed By: #### C BC #### [facility] [address] [place] [address] Dr. Sandi Michelle RBC 3.62 106/ul Critically low 4.20-5.40 [facility] Comment on above: Performed By: #### C BC #### [facility] [address] [place] [address] [address] Sandi Michelle WBC 12.9 103/ul Critically high 4.0-11.0 [facility] Comment on above: Performed By: #### C BC #### [facility] [address] [place] [address] [address] Sandi Michelle CHLAMYDIA/GONOCOCCUS ALETHEA (SW AB/URINE/PAPon 02-04-2022 Chlamydia trachomatis, ALETHEA Negative Normal Negative [facility] Comment on above: Performed By: #### C T/NGNA #### [facility] [address] [place] [address] [address] Sandi Michelle Neisseria gonorrhoeae, ALETHEA Negative Normal Negative [facility] Comment on above: Performed By: #### C T/NGNA #### [facility] [address] [place] [address] [address] Sandi Michlele PAP ACOG PANEL 2: 30 to 65on 02-04-2022 . . Normal [facility] Comment on above: Result Comment: Perf ormed at: WB Performed By: #### 4 [id number] ####[facility] [address] [place] [address]Dr. Sandi Michelle Age Gdln ACOG Testing 30-65 Normal [facility] Comment on above: Performed By: #### 4 [id number] ####[facility] [address] [place] [phone]. Sandi Michelle DIAGNOSIS: Comment Normal [facility] Comment on above: Result Comment: NEGA TIVE FOR INTRAEPITHELIAL LESION OR MALIGNANCY. Performed at: WB Performed By: #### 4 [id number] ####[facility] [address] [place] [phone]. Sandi Michelle HPV Aptima Negative Normal Negative [facility] Comment on above: Result Comment: This nucleic acid amplification test detects fourteen high-risk HPV types (16,18,31,33,35,39,45,51,52,56,58,59,66,68) without differentiation. Performed at: =G Performed By: #### 4 [id number] ####[facility] [address] [place], [place] [address]Dr. Sandi Michelle Methodology: Comment Normal [facility] Comment on above: Result Comment: This liquid based ThinPrep(R) pap test was screened with the use of an image guided system. Performed at: WB Performed By: #### 4 [id number] ####[facility] [address] [place], [place] [address]Dr. Sandi Michelle Note: Comment Normal [facility] Comment on above: Result Comment: The Pap smear is a screening test designed to aid in the detection of premalignant and malignant conditions of the uterine cervix. It is not a diagnostic procedure and should not be used as the sole means of detecting cervical cancer. Both false-positive and false-negative reports do occur. . Performed at: WB Performed By: #### 4 [id number] ####[facility] [address] [place], [place] [address]Dr. Sandi Michelle Performed by: Comment Normal [facility] Comment on above: Result Comment: Vikas Mcclellan, Coal Gasification Technician (ASCP) Performed at: WB Performed By: #### 4 [id number] ####[facility] [address] [place], [place] [address]Dr. Sandi Michelle Specimen adequacy: Comment Normal [facility] Comment on above: Result Comment: Sati sfactory for evaluation. No endocervical component is identified. Performed at: WB Performed By: #### 4 [id number] ####[facility] [address] [place], [place] [address]Dr. Sandi Michelle VAGINITIS/VAGINOSIS DNA PROB Nicholas 02-03-2022 Kaitlynn species Negative Normal Negative [facility] Comment on above: Performed By: #### V AGINT ####[facility] [address] [place], [place] [address]Dr. Sandi Michelle Gardnerella vaginalis Negative Normal Negative [facility] Comment on above: Performed By: #### V AGINT ####[facility] [address] [place], [place] [address]Dr. Sandi Michelle Trichomonas vaginalis Negative Normal Negative [facility] Comment on above: Performed By: #### V AGINT ####[facility] [address] [place], [place] [address]HbDen Sandi Miguel Angel US PREG ANATOMY SINGLEon US [...] RIGO FISCHER Date: 2022-02-01 19:32 Normal [facility] AFP MATERNAL FOR SPINA BIFID Aon 01-21-2022 AFP MoM 1.24 Normal [facility] Comment on above: Performed By: #### A FPMAT ####[facility] [address] [place], [place] [address]QhDen Michelle AFP Value 55.2 ng/mL Normal [facility] Comment on above: Performed By: #### A FPMAT ####[facility] [address] [place] [phone]. Sandi Michelle AFP, Serum for Spina Bifida Report Normal [facility] Comment on above: Performed By: #### A FPMAT ####[facility] [address] [place] [phone]. Sandi Michelle Comment Comment Normal [facility] Comment on above: Result Comment: Iesha Sullivan, Ph.D., [facility] Director . References: Available Upon Request. . Multiples Of Median Cutoffs For AFP Elevations Bhandari 2.5 Black 2.8 IDD 2.0 Twins 4.5 Abbreviation Definitions IDD - Insulin Dep Diabetes OSBR - Open Spina Bifida Risk . For further inquiries contact [facility] at [phone]. . This test was developed and its performance characteristics determined by [facility]. It has not been cleared or approved by the Food and Drug Administration. Performed By: #### A FPMAT ####[facility] [address] [place] [phone]. Sandi Michelle Gest Age Collection Date 18.1 weeks Normal [facility] Comment on above: Performed By: #### A FPMAT ####[facility] [address] [place] [phone]. Sadni Michelle Gestat, Age Based on JOSE Normal [facility] Comment on above: Result Comment: 05/26 Recalculations are not recommended when gestational dating by LMP and ultrasound are within 10 days. Performed By: #### A FPMAT ####[facility] [address] [place] [phone]. Sandi Michelle Insulin Dep Diabetes Comment Normal [facility] Comment on above: Result Comment: Not provided. . Performed By: #### A FPMAT ####[facility] [address] [place] [phone]. Sandi Michelle Interpretation Comment Normal [facility] Comment on above: Result Comment: Inte [...] Customer Services to discuss available options. The [employer] recommends amniocentesis be offered to women age 35 and older. Performed By: #### A FPMAT ####[facility] [address] [place] [phone]. Sandi Michelle [age] Normal [facility] Comment on above: Performed By: #### A FPMAT ####[facility] [address] [place] [address]Dr. Sandi Michelle Multiple Gestation No Normal [facility] Comment on above: Performed By: #### A FPMAT ####[facility] [address] [place] [phone]. Sandi Michelle OSBR Risk 1 IN 5748 Normal [facility] Comment on above: Performed By: #### A FPMAT ####[facility] [address] [place] [phone]. Sandi Michelle PDF . Normal [facility] Comment on above: Performed By: #### A FPMAT ####[facility] [address] [place] [phone]. Sandi Michelle Race Normal [facility] Comment on above: Performed By: #### A FPMAT ####[facility] [address] [place] [phone]. Sandi Michelle Test Results: Negative Normal [facility] Comment on above: Performed By: #### A FPMAT ####[facility] [address] [place] [phone]. Sadni Michelle HEP B SURFACE ANTIGEN SCREEN on 11-22-2021 HBsAg Screen Negative Normal Negative [facility] Comment on above: Performed By: #### H BSANS ####[facility] [address] [place] [address]Dr. Sandi Michelle HEPATITIS C VIRUS AB W/ REFL EX QUANTon 11-22-2021 HCV AB 0.1 s/co ratio Normal 0.0-0.9 [facility] Comment on above: Performed By: #### C BC #### [facility] [address] [address] [address] Sandi Michelle Interpretation: Comment Normal [facility] Comment on above: Result Comment: Nega tive Not infected with HCV, unless recent infection is suspected or other evidence exists to indicate HCV infection. Performed By: #### C BC #### [facility] [address] [place] [address] [address] Sandi Michelle HIV 1 AND 2 WITH REFLEXon HIV Screen 4th Generation wRfx Non-Reactive Normal Non Reactive [facility] Comment on above: Result Comment: HIV Negative HIV-1/HIV-2 antibodies and HIV-1 p24 antigen were NOT detected. There is no laboratory evidence of HIV infection. Performed By: #### H IV12 ####[facility] [address] [place] [address]Dr. Sandi Michelle RPR QUANTon 11-22-2021 Rapid Plasma Reagin, Quant Non-Reactive Normal NonRea<1:1 [facility] Comment on above: Result Comment: Plea se Note: This test does not meet current guidelines for screening and diagnosis of syphilis. This test is intended for following treatment response in patients being treated for syphilis infection. To screen for syphilis infection, a reflex cascade that includes both RPR and a treponema-specific assay should be utilized, such as Treponema pallidum (Syphilis) Screening [place] (433289) or Rapid Plasma Reagin (RPR) Test With Reflex to Quantitative RPR and Confirmatory Treponema pallidum Antibodies (162001). Performed By: #### C BC #### [facility] [address] [address] [address] Sandi Michelle RUBELLA AB IGGon 11-22-2021 Rubella Antibodies, IgG 9.33 index Normal Immune >0.99 [facility] Comment on above: Result Comment: Non- immune <0.90 Equivocal 0.90 - 0.99 Immune >0.99 Performed By: #### C BC #### [facility] [address] [address] [address] Sandi Michelle CBC AUTO DIFFon 11-21-2021 BASO # 0.0 103/ul Normal 0.0-0.1 [facility] Comment on above: Performed By: #### C BC #### [facility] [address] [address] [address] Sandi Michelle Basophils/100 WBC (Bld) 0.4 % Normal 0.2-2.0 [facility] Comment on above: Performed By: #### C BC #### [facility] [address] [place] [address] Dr. Sandi Michelle EO # 0.1 103/ul Normal 0.0-0.7 [facility] Comment on above: Performed By: #### C BC #### [facility] [address] [place] [address] Dr. Sandi Michelle Eosinophils/100 WBC (Bld) 0.6 % Critically low 0.9-7.0 [facility] Comment on above: Performed By: #### C BC #### [facility] [address] [place] [address] Dr. Sandi Michelle Erythrocyte distribution width (RBC) [Ratio] 11.9 % Normal 11.0-15.0 [facility] Comment on above: Performed By: #### C BC #### [facility] [address] [place] [address] Dr. Sandi Michelle Hematocrit (Bld) [Volume fraction] 37.1 % Normal 36.0-48.0 [facility] Comment on above: Performed By: #### C BC #### [facility] [address] [place] [address] Dr. Sandi Michelle Hemoglobin (Bld) [Mass/Vol] 12.2 g/dL Normal 12.0-16.0 [facility] Comment on above: Performed By: #### C BC #### [facility] [address] [place] [address] Dr. Sandi Michelle IG # 0.03 10e3/ul Normal 0.00-0.03 [facility] Comment on above: Performed By: #### C BC #### [facility] [address] [place] [address] Dr. Sandi Michelle IG % 0.4 % Normal 0.0-0.5 [facility] Comment on above: Performed By: #### C BC #### [facility] [address] [place] [address] Dr. Sandi Michelle LYMPH # 1.8 103/ul Normal 1.2-3.8 [facility] Comment on above: Performed By: #### C BC #### [facility] [address] [place] [address] Dr. Sandi Michelle Lymphocytes/100 WBC (Bld) 23.4 % Normal 20.5-60.0 [facility] Comment on above: Performed By: #### C BC #### [facility] [address] [place] [address] Dr. Sandi Michelle MANUAL DIFF REQ NO Normal [facility] Comment on above: Performed By: #### C BC #### [facility] [address] [place] [address] Dr. Sandi Michelle MCH (RBC) [Entitic mass] 31.4 pg Normal 26.7-34.0 [facility] Comment on above: Performed By: #### C BC #### [facility] [address] [place] [address] Dr. Sandi Michelle MCHC (RBC) [Mass/Vol] 32.9 g/dL Normal 29.9-35.2 [facility] Comment on above: Performed By: #### C BC #### [facility] [address] [place] [address] Dr. Sandi Michelle MCV (RBC) [Entitic vol] 95.6 fL Normal 81.0-99.0 [facility] Comment on above: Performed By: #### C BC #### [facility] [address] [place] [address] Dr. Sandi Michelle MONO # 0.5 103/ul Normal 0.3-0.8 [facility] Comment on above: Performed By: #### C BC #### [facility] [address] [place] [address] Dr. Sandi Michelle Monocytes/100 WBC (Bld) 6.6 % Normal 1.7-12.0 [facility] Comment on above: Performed By: #### C BC #### [facility] [address] [place] [address] Dr. Sandi Michelle NEUT # 5.4 103/ul Normal 1.4-6.5 [facility] Comment on above: Performed By: #### C BC #### [facility] [address] [place] [address] Dr. Sandi Michelle Neutrophils/100 WBC (Bld) 68.6 % Normal 43.0-75.0 [facility] Comment on above: Performed By: #### C BC #### [facility] [address] [place] [address] Dr. Sandi Michelle Platelet mean volume (Bld) [Entitic vol] 10.1 fL Normal 9.5-13.5 [facility] Comment on above: Performed By: #### C BC #### [facility] [address] [place] [address] Dr. Sandi Michelle PLT 237 103/ul Normal 150-450 [facility] Comment on above: Performed By: #### C BC #### [facility] [address] [place] [address] Dr. Sandi Michelle RBC 3.88 106/ul Critically low 4.20-5.40 [facility] Comment on above: Performed By: #### C BC #### [facility] [address] [place] [address] Dr. Sandi Michelle WBC 7.9 103/ul Normal 4.0-11.0 [facility] Comment on above: Performed By: #### C BC #### [facility] [address] [place] [address] Dr. Sadni Michelle CULTURE URINEon 11-21-2021 CULTURE URINE Culture Observations : LIGHT GROWTH OF MIXED GENITAL MENDEZ. NO POTENTIAL PATHOGENS SEEN. Normal [facility] Comment on above: Performed By: #### U RCX #### [facility] [address] [address] [address] Sandi Michelle GLYCOHEMOGLOBIN A1Con 2021 ADA RECOMMENDATION SEE BELOW Normal [facility] Comment on above: Result Comment: ADA RECOMMENDED LIMIT 4.0 - 6.0 ADA THERAPEUTIC TARGET < 7.0 ACTION SUGGESTED > 7.0 Performed By: #### A 1C ####[facility] [address] [place] [address]Dr. Sandi Michelle Glucose [Mass/Vol] 103 mg/dL Normal [facility] Comment on above: Performed By: #### A 1C ####[facility] [address] [place] [address]Dr. Sandi Michelle HbA1c (Bld) [Mass fraction] 5.2 % Normal 4.5-6.2 [facility] Comment on above: Performed By: #### A 1C ####[facility] [address] [place] [address]Dr. Sandi Michelle TYPE AND SCREENon 11-21-2021 TYPE AND SCREEN Negative Normal [facility] Comment on above: Performed By: #### T NS #### [facility] [address] [address] [address] Sandi Michelle US PREG TVon 11-03-2021 [...] TIFF URIBE Date: 2021-11-03 07:19 Normal [facility] PREG QUANT HCGon 10-14-2021 HCG QUANT 469 mIU/mL Normal [facility] Comment on above: Performed By: #### P REGQNT #### [facility] [address] [place], [place] [address] Dr. Sandi Michelle HCG RANGE SEE BELOW Normal [facility] Comment on above: Result Comment: 5-50 0-1 WEEK 40-300 1-2 WEEKS 100-1,000 2-3 WEEKS 500-6,000 3-4 WEEKS 5,000-200,000 1-2 MONTHS 10,000-100,000 2-3 MONTHS 3,000-50,000 2ND TRIMESTER 1,000-50,000 3RD TRIMESTER Performed By: #### P REGQNT #### [facility] [address] [place], [place] [address] Dr. Sandi Michelle PREG QUANT HCGon 10-12-2021 HCG QUANT 184 mIU/mL Normal [facility] Comment on above: Performed By: #### C BC #### [facility] [address] [place], [place] [address] Dr. Sandi Michelle HCG RANGE SEE BELOW Normal [facility] Comment on above: Result Comment: 5-50 0-1 WEEK 40-300 1-2 WEEKS 100-1,000 2-3 WEEKS 500-6,000 3-4 WEEKS 5,000-200,000 1-2 MONTHS 10,000-100,000 2-3 MONTHS 3,000-50,000 2ND TRIMESTER 1,000-50,000 3RD TRIMESTER Performed By: #### C BC #### [facility] [address] [place], [place] [address] Dr. Sandi Michelle PROTEIN C FUNC ACTIVITYon Prt C Activity (Chromogenic) 130 % Normal [facility] Comment on above: Result Comment: Refe rence Range: 17 years and older: 73 - 180 Effective August 10, 2021 Prt C Activity, (Chromogenic) will be made non-orderable. This will not affect any profile that includes Prt C Activity (Chromogenic). [facility] offers [id number] Protein C Functional. For more information please contact your local [facility] Mobile Lounge Driver Or Operator. Performed By: #### P RCACT ####[facility] [address] [place], [place] [address]DaDr. Sandi Michelle FACTOR V LEIDEN MUTATION CIARAN LYSISon 07-27-2021 Factor V Leiden Comment Normal [facility] Comment on above: Result Comment: Resu lt: c.1601G>A (p.[id number]) - Not Detected . This result is not associated with an increased risk for venous thromboembolism. See Additional Clinical Information and Comments. Additional Clinical Information: Venous thromboembolism is a multifactorial disease influenced by genetic, environmental, and circumstantial risk factors. The c.1601G>A (p. [id number]) variant in the F5 gene, commonly referred [...] c.*97G>A variant and Factor V Leiden (PMID: [id number]). Additional risk factors include but are not [...] health care providers to discuss results at [phone] ([phone]). . Test Details: Variant Analyzed: c.1601G>A (p. [id number]), referred to as Factor V Leiden . [...] developed and its performance characteristics determined by [facility]. It has not been cleared or approved by the Food and Drug Administration. . References: Masoud S, Hawa GUTIÉRREZ, Randy R, Moses WW, Luis A JH; [facility] Professional Practice and Guidelines Committee. Addendum: [employer] consensus statement on factor V Leiden mutation testing. [place] [facility] 2020Sep 26. doi: 10.1038/[id number]-o. PMID: 49167588. . Miriam GAMING. Factor V Leiden Thrombophilia. 1998December 05 [Updated 2017Jul 28]. In: Jv MP, Delia HH, Ian RA, et al., editors. Jovita(R) [Internet]. [place] ([place]): Merged with [facility]; [id number]. Available from: https://www.ncbi.nlm.nih.gov/books/NUP9568/ . Jonh S, Hawa GUTIÉRREZ, Francisco Javier X, Leobardo B, Ash EB, Deysi P, Mari CS; [facility] Laboratory Devops Engineer Committee. Venous thromboembolism laboratory testing (factor V Leiden and factor II c.*97G>A), 2018 update: a technical standard of the [employer] ([employer]). [place] [facility] 2018 Jun;20(12):6722-4734. doi: 10.1038/[id number]-v. Epub 2017Apr 28. PMID: 91988214. . Martha Guillen, PhD, FACMG Lindsay Jaquez, PhD, FACMG Pete Brown, PhD, FACMG Geronimo Mcdaniel, PhD, FACMG Norm Hays, PhD, FACMG Maureen Mancilla, PhD, FACMG Performed By: #### F PSYCHIATRIC ####[address] [address]Wr. Sandi Miguel Angel ANTITHROMBIN ACTIVITYon -0 Antithrombin Activity 102 % Normal 75-135 [facility] Comment on above: Result Comment: Dire ct Xa inhibitor anticoagulants such as rivaroxaban, apixaban and edoxaban will lead to spuriously elevated antithrombin activity levels possibly masking a deficiency. Performed By: #### C BC #### [facility] [address] [address] [address] Sandi Michelle B-2 GLYCOPROTEIN AB IGGon Beta-2 Glycoprotein I Ab, IgG <9 Normal 0-20 [facility] Comment on above: Result Comment: The reference interval reflects a 3SD or 99th percentile interval, which is thought to represent a potentially clinically significant result in accordance with the International Consensus Statement on the classification criteria for definitive antiphospholipid syndrome (APS). J Thromb Haem 2006;4:295-306. Performed By: #### B 2GPG ####[facility] [address] [address]Dr. Sandi Michelle B2-GLYCOPROTEIN 1 AB IGMon 0 07-25-2021 Beta-2 Glycoprotein I Ab, IgM <9 Normal 0-32 [facility] Comment on above: Result Comment: The reference interval reflects a 3SD or 99th percentile interval, which is thought to represent a potentially clinically significant result in accordance with the International Consensus Statement on the classification criteria for definitive antiphospholipid syndrome (APS). J Thromb Haem 2006;4:295-306. Performed By: #### B GLYIGM ####[facility] [address] [address]Dr. Sandi Michelle LUPUS ANTICOAGULANT W/REFLEX on 07-24-2021 aPTT Coag (Bld) [Time] 30.9 s Normal 0.0-51.9 [facility] Comment on above: Performed By: #### L UPUSRF ####[facility] [address] [address]Dr. Sandi Michelle dRVVT 33.0 sec Normal 0.0-47.0 [facility] Comment on above: Performed By: #### L UPUSRF ####[facility] [address] [address]Dr. Sandi Michelle Interpretation Comment: Normal [facility] Comment on above: Result Comment: No l upus anticoagulant was detected. Performed By: #### L UPUSRF ####[facility] [address] [address]Dr. Sandi Michelle PROTEIN S ANTIGENon 07-24-20 21 Protein S, Free 104 % Normal 61-136 [facility] Comment on above: Performed By: #### P RTSAG ####[facility] [address] [id number]. Sanjuanitasonia Michelle Protein S, Total 90 % Normal 60-150 [facility] Comment on above: Result Comment: This test was developed and its performance characteristics determined by [facility]. It has not been cleared or approved by the Food and Drug Administration. Performed By: #### P RTSAG ####[facility] [address] [id number]. Sandi Michelle PROTEIN S, FUNCTIONALon 06-26 Protein S-Functional 107 % Normal 63-140 [facility] Comment on above: Result Comment: Prot ein S activity may be falsely increased (masking an abnormal, low result) in patients receiving direct Xa inhibitor (e.g., rivaroxaban, apixaban, edoxaban) or a direct thrombin inhibitor (e.g., dabigatran) anticoagulant treatment due to assay interference by these drugs. Performed By: #### C BC #### [facility] [address] [place] [address] Dr. Sandi Michelle ANTICARDIOLIPIN AB (JEANIE) IGG on 07-23-2021 Anticardiolipin Ab,IgG,Qn <9 Normal 0-14 [facility] Comment on above: Result Comment: Nega tive: <15 Indeterminate: 15 - 20 Low-Med Positive: >20 - 80 High Positive: >80 Performed By: #### C ARDLIP #### [facility] [address] [place] [address] Dr. Sandi Michelle ANTICARDIOLIPIN AB (JEANIE) IGM on 07-23-2021 Anticardiolipin Ab,IgM,Qn 12 MPL U/mL Normal 0-12 [facility] Comment on above: Result Comment: Nega tive: <13 Indeterminate: 13 - 20 Low-Med Positive: >20 - 80 High Positive: >80 Performed By: #### C [facility] ####[facility] [address] [place], [place] [address]DiDen Michelle Vital Signs Date Time Vital Sign Value Performing Clinician Facility 08-29-2024 15:30-0500 Body mass index (BMI) [Ratio] 29.92 kg/m2 Lee Keyona DO Work Phone: [facility] 08-29-2024 15:30-0500 Body weight 84.1 kg Lee Keyona DO Work Phone: [facility] 08-29-2024 15:30-0500 Diastolic blood pressure 70 mm[Hg] Lee Keyona DO Work Phone: [facility] 08-29-2024 15:30-0500 Systolic blood pressure 120 mm[Hg] Lee Keyona DO Work Phone: [facility] 08-09-2024 09:39-0500 Body mass index (BMI) [Ratio] 30.18 kg/m2 Lee Keyona DO Work Phone: [facility] 08-09-2024 09:39-0500 Body weight 84.82 kg Lee Keyona DO Work Phone: [facility] 08-09-2024 09:39-0500 Diastolic blood pressure 64 mm[Hg] Lee Keyona DO Work Phone: [facility] 08-09-2024 09:39-0500 Systolic blood pressure 114 mm[Hg] Lee Keyona DO Work Phone: [facility] 07-12-2024 09:59-0500 Body mass index (BMI) [Ratio] 29.39 kg/m2 Lee Keyona DO Work Phone: [facility] 07-12-2024 09:59-0500 Body weight 82.61 kg Lee Keyona DO Work Phone: [facility] 07-12-2024 09:59-0500 Diastolic blood pressure 68 mm[Hg] Lee Keyona DO Work Phone: [facility] 07-12-2024 09:59-0500 Systolic blood pressure 108 mm[Hg] Lee Keyona DO Work Phone: [facility] 06-11-2024 16:44-0500 Body mass index (BMI) [Ratio] 28.59 kg/m2 Lee Keyona DO Work Phone: [facility] 06-11-2024 16:44-0500 Body weight 80.34 kg Lee Keyona DO Work Phone: [facility] 06-11-2024 16:44-0500 Diastolic blood pressure 70 mm[Hg] Lee Keyona DO Work Phone: [facility] 06-11-2024 16:44-0500 Systolic blood pressure 108 mm[Hg] Lee Keyona DO Work Phone: [facility] 05-08-2024 15:11-0400 Body mass index (BMI) [Ratio] 27.76 kg/m2 Lee Keyona DO Work Phone: [facility] 05-08-2024 15:11-0400 Body weight 78.02 kg Lee Keyona DO Work Phone: [facility] 05-08-2024 15:11-0400 Diastolic blood pressure 70 mm[Hg] Lee Keyona DO Work Phone: [facility] 05-08-2024 15:11-0400 Systolic blood pressure 112 mm[Hg] Lee Keyona DO Work Phone: [facility] 04-05-2024 14:24-0400 Body mass index (BMI) [Ratio] 27.76 kg/m2 [facility] Nurse [facility] 04-05-2024 14:24-0400 Body weight 78.02 kg [facility] Nurse [facility] 04-05-2024 14:24-0400 Diastolic blood pressure 68 mm[Hg] [facility] Nurse [facility] 04-05-2024 14:24-0400 Systolic blood pressure 118 mm[Hg] [facility] 01-21-2022 [id number]:060400 Body weight 72.[address] LEE RAND [facility] Comment on above: Performed By: #### A FPMAT ####[facility] [address] [place], [place] [address]YzDen Michelle Encounters Encounter Date Encounter Type Care Provider Facility Start: 08-29-2024 End: 08-29-2024 flow sheet Lee Keyona DO Work Phone: [facility] Comment on above: 29 weeks gestation o f ; Third trimester ; Diet controlled gestational diabetes mellitus (GDM) in third trimester Start: 08-29-2024 End: 08-29-2024 ambulatory LEE KEYONA Not Available Start: 08-29-2024 End: 08-29-2024 Bamboo flowsheet Lee Keyona DO Work Phone: [facility] Start: 08-29-2024 End: 08-29-2024 Bamboo flowsheet Lee Keyona DO Work Phone: [facility] Start: 08-09-2024 End: 08-09-2024 flow sheet Lee Keyona DO Work Phone: [facility] Comment on above: Second trimester pre gnancy; 26 weeks gestation of ; Elevated glucose tolerance test Start: 08-09-2024 End: 08-09-2024 ambulatory LEE KEYONA Not Available Start: 07-28-2024 End: 07-28-2024 Clinisync Result Encounter Lee Keyona DO Work Phone: [facility] External Department Unsolicited Start: 07-28-2024 End: 07-28-2024 Clinisync Result Encounter Lee Keyona DO Work Phone: [facility] External Department Unsolicited Start: 07-21-2024 End: 07-21-2024 Clinisync Result Encounter Lee Keyona DO Work Phone: [facility] Unsolicited Start: 07-21-2024 End: 07-21-2024 Clinisync Result Encounter Lee Keyona DO Work Phone: [facility] Unsolicited Start: 07-12-2024 End: 07-12-2024 Bamboo flowsheet Lee Keyona DO Work Phone: [facility] Start: 07-12-2024 End: 07-12-2024 Bamboo flowsheet Lee Keyona DO Work Phone: [facility] Start: 07-12-2024 End: 07-12-2024 flow sheet Lee Keyona DO Work Phone: [facility] Comment on above: Second trimester pre gnancy; with normal glucose tolerance test (GTT); 22 weeks gestation of ; Diabetes mellitus screening Start: 07-12-2024 End: 07-12-2024 ambulatory LEE KEYONA Not Available Start: 06-30-2024 End: 07-04-2024 Clinisync Result Encounter Lee Keyona DO Work Phone: [facility] External Department Unsolicited Start: 06-30-2024 End: 07-04-2024 Clinisync Result Encounter Lee Keyona DO Work Phone: [facility] Department Unsolicited Start: 06-11-2024 End: 06-12-2024 ambulatory LEE KEYONA Not Available Start: 06-11-2024 End: 06-12-2024 flow sheet Lee Keyona DO Work Phone: [facility] Comment on above: Second trimester pre gnancy; 18 weeks gestation of ; Vaginal discharge; STD exposure; Screening, , for anatomic survey Start: 06-11-2024 End: 06-11-2024 Bamboo flowsheet Lee Keyona DO Work Phone: [facility] Start: 06-11-2024 End: 06-13-2024 Bamboo flowsheet Lee Keyona DO Work Phone: [facility] Start: 06-11-2024 End: 06-13-2024 External Result Encounter Lee Keyona DO Work Phone: [facility] External Department Unsolicited Start: 05-08-2024 End: 05-08-2024 flow sheet Lee Keyona DO Work Phone: [facility] Comment on above: 13 weeks gestation o f ; Second trimester Start: 05-08-2024 End: 05-08-2024 ambulatory LEE KEYONA Not Available Start: 05-08-2024 End: 05-08-2024 Bamboo flowsheet Lee Keyona DO Work Phone: [facility] Start: 05-08-2024 End: 05-08-2024 Bamboo flowsheet Lee Keyona DO Work Phone: [facility] Start: 04-16-2024 End: 04-16-2024 Clinisync Result Encounter Lee Keyona DO Work Phone: [facility] External Department Unsolicited Start: 04-16-2024 End: 04-16-2024 Clinisync Result Encounter Lee Keyona DO Work Phone: [facility] External Department Unsolicited Start: 04-05-2024 End: 04-05-2024 ambulatory LEE KEYONA Not Available Start: 04-05-2024 End: 04-05-2024 Office outpatient visit 5 minutes [facility] Keyona Nurse [facility] Comment on above: GA: 8w5d Start: 01-02-2024 End: 01-02-2024 ambulatory LEE KEYONA Not Available Start: 12-29-2023 End: 12-29-2023 ambulatory LEE KEYONA Not Available Start: 06-10-2022 End: 06-10-[address] LEE RAND Facility:[facility] Start: 06-08-2022 Evaluation and management of inpatient DR LEE RAND Facility:[facility] Start: 06-08-2022 End: 06-08-[address] LEE RAND Facility:[facility] Start: 06-04-[address] LEE RAND Facility :[facility] Start: 06-04-2022 End: 06-06-2022 Evaluation and management of inpatient DR LEE RAND Facility:[facility] Start: 05-28-2022 End: 05-28-[address] LEE RAND Facility:[facility] Start: 05-27-2022 End: 05-27-[address] LEE RAND Facility:[facility] Start: 05-21-2022 End: 05-21-[address] AVI AKHTAR Facility:[facility] Start: 05-14-2022 End: 05-14-[address] AVI AKHTAR Facility:[facility] Start: 05-10-2022 End: 05-11-[address] LEE RAND Facility:[facility] Start: 04-29-2022 End: 04-30-[address] ELE RAND Facility:[facility] Start: 04-27-2022 End: 04-28-[address] LEE RAND Facility:[facility] Start: 03-15-2022 End: 03-16-[address] LEE RAND Facility:[facility] Start: 02-02-2022 End: 02-02-[address] LEE RAND Facility:[facility] Start: 02-01-2022 End: 02-02-[address] LEE RAND Facility:[facility] Start: 01-18-2022 End: 01-19-[address] LEE RAND Facility:[facility] Start: 11-21-2021 End: 11-22-[address] LEE RAND Facility:[facility] Start: 11-05-[address] LEE RAND Facility :[facility] Start: 11-02-2021 End: 11-03-[address] LEE RAND Facility:[facility] Start: 10-12-2021 End: 10-22-[address] LEE RAND Facility:[facility] Start: 07-22-2021 End: 07-23-[address] LEE RAND Facility:[facility] Procedures Date Procedure Procedure Detail Performing Clinician Start: 08-29-2024 Urnls dip stick/tabl et rgnt non-auto w/o micrscp Lee Harriso DO Work Phone: Start: 07-28-2024 GLUCOSE TOLERANCE 3 HOUR Lee Rand DO Work Phone: Start: 07-21-2024 GLUCOSE 1 HOUR Lee Fa zio DO Work Phone: Start: 07-12-2024 Urnls dip stick/tabl et rgnt non-auto w/o micrscp Lee Keyona DO Work Phone: Start: 06-30-2024 AFP, SERUM, OPEN SPI NA BIFIDA Lee Keyona DO Work Phone: Start: 06-11-2024 Urnls dip stick/tabl et rgnt non-auto w/o micrscp Lee Keyona DO Work Phone: Start: 06-11-2024 RECURRENT VAGINITIS (HTRX) Lee Keyona DO Work Phone: Start: 05-08-2024 Urnls dip stick/tabl et rgnt non-auto w/o micrscp Lee Keyona DO Work Phone: Start: 04-16-2024 ALL CBC WITH AUTO DIFF Lee Keyona DO Work Phone: Start: 04-05-2024 End: 04-05-2024 Urnls dip stick/tablet rgnt non-auto w/o micrscp Lee Keyona DO Work Phone: Start: 06-04-2022 Extraction of Produc ts of Conception, Low Cervical, Open Approach DR LEE RAND Plan of Treatment Date Care Activity Detail Author Start: 09-12-2024 End: 09-12-2024 Patient encounter procedure 09/12/2024 2:30 PM EST Routine [facility] [address] [place] [id number] Lee Rand, DO [address] [place] [address] [facility] Start: 08-29-2024 End: 08-29-2024 Patient encounter procedure [facility] Comment on above: Arrived Start: 08-29-2024 End: 08-29-2025 US biophysical profile w non stress test US biophysical profile w non stress test Imaging Routine Diet controlled gestational diabetes mellitus (GDM) in third trimester Expected: 08/29/2024 (Approximate), Expires: 08/29/2025 [facility] Work Phone: Comment on above: Expected: 08/29/2024 (Approximate), Expires: 08/29/2025 Start: 08-09-2024 End: 08-09-2024 Patient encounter procedure 08/09/2024 9:10 AM EST Routine [facility] [address] [place] [id number] Lee Rand, DO [address] [place], [place] [id number] [facility] Start: 07-31-2024 End: 07-31-2024 Patient encounter procedure 07/31/2024 1:00 PM EST Office Visit [facility] [address] [place] [phone] Lee Rand, DO [address] [place] [address] [facility] Start: 07-12-2024 End: 07-12-2025 CBC panel - Blood by Automated count CBC Lab Routine Diabetes mellitus screening Expected: 07/12/2024 (Approximate), Expires: 07/12/2025 [facility] Work Phone: Comment on above: Expected: 07/12/2024 (Approximate), Expires: 07/12/2025 Start: 07-12-2024 End: 07-12-2025 Measurement of glucose 1 hour after glucose challenge for glucose tolerance test Glucose tolerance, 1 hour Lab Routine Diabetes mellitus screening Expected: 07/12/2024 (Approximate), Expires: 07/12/2025 [facility] Comment on above: Expected: 07/12/2024 (Approximate), Expires: 07/12/2025 Start: 07-12-2024 End: 07-12-2024 Patient encounter procedure [facility] Comment on above: Arrived Start: 06-11-2024 End: 06-11-2024 Patient encounter procedure 06/11/2024 3:50 PM EST Routine [facility] [address] [place] [address] Lee Rand DO [address] [place] [address] [facility] Start: 06-11-2024 End: 12-09-2024 Alpha fetoprotein, maternal Alpha fetoprotein, maternal Lab Routine Second trimester Expected: 06/11/2024 (Approximate), Expires: 12/09/2024 [facility] Comment on above: Expected: 06/11/2024 (Approximate), [...] Missed menses Expected: 04/05/2024 (Approximate), Expires: 04/05/2025 [facility] Work Phone: Comment on above: Expected: 04/05/2024 (Approximate), Expires: 04/05/2025 Start: 04-05-2024 End: 04-05-2025 Drugs of abuse panel - Urine by Screen method Rapid drug screen, urine Lab Routine Encounter for supervision of normal first in first trimester , unspecified gestational age Expected: 04/05/2024 (Approximate), Expires: 04/05/[address] [facility] Comment on above: Expected: 04/05/2024 (Approximate), Expires: 04/05/2025 Start: 04-05-2024 End: 04-05-2025 US Pelvis transvaginal US OB transvaginal Imaging Routine Missed menses Expected: 04/05/2024 (Approximate), Expires: 04/05/[address] [facility] Comment on above: Expected: 04/05/2024 (Approximate), Expires: 04/05/2025 Bacteria identified in Urine by Culture Urine culture Microbiology Routine Missed menses Ordered: 04/05/[address] [facility] Comment on above: Ordered: 04/05/2024 CBC W Auto Different ial panel - Blood CBC and differential Lab Routine Missed menses Ordered: 04/05/[address] [facility] Comment on above: Ordered: 04/05/2024 CHLAMYDIA TRACHOMATI S (GENITO/STI) CHLAMYDIA TRACHOMATIS (GENITO/STI) Lab Routine STD exposure Ordered: 06/11/[address] [facility] Comment on above: Ordered: 06/11/2024 Hemoglobin A1c/Hemoglobin.total in Blood Hemoglobin A1c Lab Routine Missed menses Ordered: 04/05/[address] [facility] Comment on above: Ordered: 04/05/2024 Hepatitis B virus surface Ag [Presence] in Serum or Plasma by Immunoassay Hepatitis B surface antigen Lab Routine Missed menses Ordered: 04/05/[address] [facility] Comment on above: Ordered: 04/05/2024 Hepatitis C virus Ab [Presence] in Serum or Plasma by Immunoassay Hepatitis C antibody Lab Routine Missed menses Ordered: 04/05/[address] [facility] Comment on above: Ordered: 04/05/2024 HIV-1/HIV-2 antigen/antibody combination immunoassay HIV-1 and HIV-2 antibodies Lab Routine Missed menses Ordered: 04/05/[address] [facility] Comment on above: Ordered: 04/05/2024 Neisseria gonorrhoea e DNA [Presence] in Unspecified specimen by ALETHEA with probe detection Neisseria gonorrhea DNA probe, direct Lab Routine STD exposure Ordered: 06/11/[address] [facility] Comment on above: Ordered: 06/11/2024 Reagin Ab [Presence] in Serum by RPR RPR Lab Routine Missed menses Ordered: 04/05/[address] [facility] Comment on above: Ordered: 04/05/2024 Rubella antibody, IgG Rubella an tibody, IgG Lab Routine Missed menses Ordered: 04/05/[address] [facility] Comment on above: Ordered: 04/05/2024 SURESWAB(R) ADVANCED VAGINITIS PLUS, TMA SURESWAB(R) ADVANCED VAGINITIS PLUS, TMA Pathology and Cytology Routine Vaginal discharge Ordered: 06/11/[address] [facility] Work Phone: Comment on above: Ordered: 06/11/2024 Payers Date Payer Category Payer Private Health Insurance [employer] [id number] 2024 Unknown [id number] 2020 [facility] Care O (unspecified) [id number] 1991 Unknown [id number] 2.16.840.1.252903.3.579.2. 593 1991 Unknown [id number] 2.16.840.1.416231.3.579.2. 593 1991 Unknown [id number] 2.16.840.1.593916.3.579.2. 593 1991 Unknown [id number] 2.16.840.1.596284.3.579.2. 593 1991 Unknown [id number] 2.16.840.1.166240.3.579.2. 593 1991 Unknown [id number] 2.16.840.1.945740.3.579.2. 593 1991 Unknown [id number] 2.16.840.1.205942.3.579.2. 593 1991 Unknown [id number] 2.16.840.1.200157.3.579.2. 593 1991 Unknown [id number] 2.16.840.1.253562.3.579.2. 593 1991 Unknown [id number] 2.16.840.1.537781.3.579.2. 593 1991 Unknown [id number] 2.16.840.1.310352.3.579.2. 593 1991 Unknown [id number] 2.16.840.1.368476.3.579.2. 593 1991 Unknown [id number] 2.16.840.1.583876.3.579.2. 593 1991 Unknown [id number] 2.16.840.1.509418.3.579.2. 593 1991 Unknown [id number] 2.16.840.1.287890.3.579.2. 593 1991 Unknown [id number] 2.16.840.1.765837.3.579.2. 593 1991 Unknown [id number] 2.16.840.1.207646.3.579.2. 593 1991 Unknown [id number] 2.16.840.1.938101.3.579.2. 593 1991 Unknown [id number] 2.16.840.1.876540.3.579.2. 593 1991 Unknown [id number] 2.16.840.1.382125.3.579.2. 593 1991 Unknown [id number] 2.16.840.1.919060.3.579.2. 593 1991 Unknown [id number] 2.16.840.1.751763.3.579.2. 9 1991 Unknown [id number] 2.16.840.1.668938.3.579.2. 9 1991 Unknown [id number] 2.16.840.1.827542.3.579.2. 9 1991 Unknown [id number] 2.16.840.1.322720.3.579.2. 9 1991 Unknown [id number] 2.16.840.1.004391.3.579.2. 9 1991 Unknown [id number] 2.16.840.1.470509.3.579.2. 1258 1991 Unknown [id number] 2.16.840.1.583746.3.579.2. 9 1991 Unknown [id number] 2.16.840.1.742958.3.579.2. 1259 1959 Private Health Insurance [id number] Social History Date Type Detail Facility Start: 02-08-2023 Tobacco smoking stat [facility] Never smoked tobacco [facility] Start: 02-08-2023 Tobacco use and exposure Smokeless t obacco non-user [facility] Start: 04-05-2024 End: 08-29-2024 Alcoholic beverage intake Lifetime non-drinker (finding) [facility] Start: 07-19-2023 End: 01-02-2024 History of Social function [facility] Start: 07-19-2023 End: 01-02-2024 Tobacco use panel [facility] Start: 02-18-2024 [facility] Start: 1990 Sex assigned at Female [facility] Start: 02-06-2023 Gender identity Identifies as female gender (finding) [facility] Start: 02-06-2023 Sexual orientation Heterosexual (fin ding) [facility] Medical Equipment Procedure Code Equipment Code Equipment Origin al Text Equipment Identifier Dates 1 strip by In Vi tro route Daily Use in the morning prior to breakfast, 1 hour after each meal for a total of 4times daily. [id number] Start: 08-09-2024 End: 09-08-2024 1 each by In Vit ro route Daily Use to check FSBS four times daily [id number] Start: 08-09-2024 End: 09-08-2024 Goals Date Patient Goal Desired Activity /State Personal health goal Clinical Notes 06-04-2022 to 08-29-2024 Tere Hu, PERIOPERATIVE NURSE - 08/29/2024 3:20 PM ESTSusan Spitler, PERIOPERATIVE NURSE - 08/09/2024 9:10 AM ESTSusan Spitler, PERIOPERATIVE NURSE - 07/12/2024 9:50 AM ESTSusan Spitler, PERIOPERATIVE NURSE - 06/11/2024 3:50 PM EST Note Date & Type Note Facility 08-29-2024 History of Presen t illness Narrative Reason for Appointment: Patient ID: Anna Law is a 34 y.o. female who presents for Routine Visit Patient presents today for Return OB appointment. MEDICATIONS Current Outpatient Medications Medication Instructions Alcohol Swabs (Alcohol Prep Pad) 70 % pads 1 Pad, Topical, Daily, Use four times daily to check FSBS. aspirin 81 mg, Daily Blood Glucose Monitoring Suppl (D-Care Glucometer) w/Device kit 1 kit, Does not apply, Daily, Use four times daily to check FSBS. In the morning prior to breakfast & 1 hour after each meal for a total of 4times daily. folic acid (FOLVITE) 1 mg, Every 24 hours Glucose Blood (Blood Glucose Test) strip 1 strip, In Vitro, Daily, Use in the morning prior to breakfast, 1 hour after each meal for a total of 4times daily. Lancets Ultra Thin misc 1 each, In Vitro, Daily, Use to check FSBS four times daily Vit-Fe Fumarate-FA ( Vitamins) 28-0.8 MG [...] Grandfather Bo Albright Cancer Paternal Grandmother Isis Davis Arthritis Paternal Grandmother Isis Davis Hypertension Paternal Grandmother Isis Davis SURGICAL HISTORY Past Surgical History: Procedure Laterality [...] nursing note reviewed. Exam conducted with a treasury representative present. Vitals: Estimated body mass index is 29.92 kg/m as calculated from the following: Height as of 01/02/24: 5' 6 . Weight as of this encounter: 185 lb 6.4 oz. BP: 120/70 Patient's last menstrual period was 02/04/2024. ASSESSMENT & PLAN ICD-10-CM 1. 29 weeks gestation of Z3A.29 POCT urinalysis dipstick manually resulted 2. Third trimester Z34.93 POCT urinalysis dipstick manually resulted 3. Diet controlled gestational diabetes mellitus (GDM) in third trimester O24.410 US biophysical profile w non stress test Return OB: Patient presents today for a routine obstetrics appointment. Patient is currently 29w4d . Patient states she is doing well but has complaints of being tired due to current . Patient has verbalizes frequent movement. labor precautions was discussed/given and patient was instructed to perform kick counts three times a day. Reviewed MFM visit with pt in detail. Pt to have celestone injections at 35 weeks. Reviewed glucose log with pt in detail. Given NST/BPP. Orders Placed This Encounter Procedures US biophysical profile w non stress test POCT urinalysis dipstick manually resulted Follow Up: Patient is to return to office in 2 week for routine OB appointment. Documented by Tere Hu LPN on behalf of: Lee Rand DO documented in this encounter [facility] 08-09-2024 History of Presen t illness Narrative Reason [...] Maternal Grandfather Bo Heidtman Cancer Paternal Grandmother Isis Davis Arthritis Paternal Grandmother December Davis Hypertension Paternal Grandmother December Davis SURGICAL HISTORY Past Surgical History: Procedure Laterality [...] nursing note reviewed. Exam conducted with a treasury representative present. Vitals: Estimated body mass index is 29.39 kg/m as calculated from the following: Height as of 01/02/24: 5' 6 . Weight as of 07/12/24: 182 lb 1.9 oz. BP: Patient's last menstrual period was 02/04/2024. ASSESSMENT & PLAN ICD-10-CM 1. Second trimester Z34.92 2. 26 weeks gestation of Z3A.26 Patient presents today for a routine obstetrics appointment. Patient is currently 26w5d with a Estimated Date of Delivery: 11/10/24. Discussed obtaining 3 hour gtt and patient will perform daily FSBS testing 4 times daily for 2 weeks and will bring results to next appointment. Patient to return to clinic in 2 for routine OB appointment and review sugars. Supplies sent to patients pharmacy. If all looks well then will discuss plan of care moving forward. Documented by Miranda Parsons LPN on behalf of: Lee Rand DO documented in this encounter [facility] 07-12-2024 History of Presen t illness Narrative [...] Grandmother Isis Cannon Arthritis Paternal Grandmother Isis Davis Hypertension Paternal Grandmother Isis Davis SURGICAL HISTORY Past Surgical History: Procedure Laterality [...] nursing note reviewed. Exam conducted with a treasury representative present. Vitals: Estimated body mass index is [...] with patient and she is scheduled with [facility] for confirmation of complete placenta previa. Patient to return to clinic in 4 weeks for routine OB. Documented by Miranda Parsons LPN on behalf of: Lee Rand DO documented in this encounter [facility] 06-11-2024 History of Presen t illness Narrative [...] Known Problems Brother Diabetes Maternal Grandfather Bo Jose Ramon Cancer Paternal Grandmother December Davis Arthritis Paternal Grandmother Decemberrishabh Hypertension Paternal Grandmother December Davis SURGICAL HISTORY Past Surgical History: Procedure Laterality [...] nursing note reviewed. Exam conducted with a treasury representative present. Vitals: Estimated body mass index is [...] by Miranda Parsons LPN on behalf of: Lee Rand DO documented in this encounter [facility] 05-08-2024 History of Presen t illness Narrative Reason for Appointment: Patient ID: Anna aLw is a 34 y.o. female who presents [...] Grandfather Bo Albright Cancer Paternal [facility] Paternal Grandmother Isis [facility] Hypertension Paternal Grandmother Isis [facility] SURGICAL HISTORY Past Surgical History: Procedure Laterality [...] nursing note reviewed. Exam conducted with a treasury representative present. Vitals: Estimated body mass index is [...] or undercooked meat, and stay away from [facility]. Patient has been consulted regarding any further do's and don'ts of . Patient voiced understanding and all questions and concerns were answered. Orders Placed This Encounter Procedures POCT urinalysis dipstick manually resulted Follow Up: Patient is to return in 4 weeks for routine OB appointment. Documented by Tere Hu LPN on behalf of: Lee Rand DO documented in this encounter [facility] 04-05-2024 History of Presen t illness Narrative [...] or undercooked meat, and stay away from [facility]. Patient has also been advised to not [...] by: Janis Hylton documented in this encounter [facility] 06-04-2022 Note OPERATIVE NOTE OPERATION DATE: 06/04/2022 PROCEDURE: Primary low transverse section. PREOPERATIVE DIAGNOSIS: 1. Intrauterine at 37 5/7 weeks. 2. Breech presentation. POSTOPERATIVE DIAGNOSIS: 1. Intrauterine at 37 5/7 weeks. 2. Breech presentation. 3. 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 SURGEON: Lee Rand SALES REPRESENTATIVE ADDING MACHINES: SCARLET Albert URINE OUTPUT: Yellow and clear. [...] the Recovery Room in stable condition. [facility] Evaluation note Diagnosis 13 weeks gestation of Second trimester state, incidental [facility] Diagnosis Second trimester state, incidental 18 weeks gestation of Vaginal discharge Leukorrhea, not specified as infective STD exposure Screening, , for anatomic survey Encounter for anatomic survey [facility] Diagnosis Missed menses Encounter for supervision of normal first in first trimester , unspecified gestational age care, antepartum [facility] Diagnosis Second trimester state, incidental with normal glucose tolerance test (GTT) 22 weeks gestation of Diabetes mellitus screening Screening for diabetes mellitus [facility] Diagnosis Second trimester state, incidental 26 weeks gestation of Elevated glucose tolerance test Impaired glucose tolerance test [facility] Diagnosis 29 weeks gestation of Third trimester state, incidental Diet controlled gestational diabetes mellitus (GDM) in third trimester documented in this encounter [facility] Summary Purpose Family History No Family History Records FoundNo Family History Records Found Advance Directives No Advanced Directives Records FoundNo Advanced Directives Records Found Additional Source Comments INFORMATION SOURCE (unrecogn ized section and content) DATE CREATED AUTHOR 06/14/2022 [facility] DATE CREATED AUTHOR AUTHOR'S ORGANIZ ATION 09/01/2024 [facility] EPIC Care Teams (unrecognized sec tion and content) Iridologist Relationship Specialty Start Date End Date Fito Cueto MD [address] [place] [address] PCP - General Family Medicine 02/09/23 Iridologist Relationship Specialty Start Date End Date Fito Cueto MD [address] [place] [address] PCP - General Family Medicine 02/09/23 Iridologist Relationship Specialty Start Date End Date Fito Cueto MD [address] [place] [address], [place] [address] PCP - General Family Medicine 02/09/23 Iridologist Relationship Specialty Start Date End Date Fito Cueto MD [address] [place] [id number] PCP - General Family Medicine 02/09/23 Iridologist Relationship Specialty Start Date End Date Fito Cueto MD [address] [place] [id number] PCP - General Family Medicine 02/09/23 Iridologist Relationship Specialty Start Date End Date Fito Cueto MD [address] [place] [id number] PCP - General Family Medicine 02/09/23 Iridologist Relationship Specialty Start Date End Date Fito Cueto MD [address] [place] [id number] PCP - General Family Medicine 02/09/23 Iridologist Relationship Specialty Start Date End Date Fito Cueto MD [address] [place] [address], [place] [address] PCP - General Family Medicine 02/09/23 Iridologist Relationship Specialty Start Date End Date Fito Cueto MD [address] [place] [id number] PCP - General Family Medicine 02/09/23 Reason [...] BE BASED ON THE PRIMARY CLINICAL RECORDS. [facility]. provides no warranty or guarantee of the accuracy or completeness of information in this document.
--- NOTE | 2024-09-04 18:48 | US_ITS ---
[address] [address] Patient Name: RUBÉN MACDONALD MRN: [facility]:[id number] date: 1990 Sex: F Assigned Patient Location: [facility] Current Patient Location: Accession/Order Number: [id number] Exam Date: 09/04/2024 18:52 Report Date: 09/05/2024 05:53 At the request of: MELINDA FREDERICK Procedure: US OB BPP w non-stress EXAMINATION: US OB BPP w non-stress HISTORY:DIET CONTROLLED GESTATIONAL DIABETES MELLITUS O24.410 COMPARISON: Ultrasound OB anatomy 06/23/2024 TECHNIQUE: Ultrasound biophysical profile was performed in the radiology department. BREATHING MOVEMENTS: 2 GROSS BODY MOVEMENTS: 2 TONE: 2 QUALITATIVE AMNIOTIC FLUID VOLUME: 2 PRESENTATION: BREECH HEART RATE: 143.62 bpm AMNIOTIC FLUID VOLUME: 17.74 cm GESTATIONAL AGE: 30 weeks 3 days US/US OB BPP w non-stress IMPRESSION: 1. Total biophysical profile score: 8 Electronically authenticated by: TIFF URIBE Date: 09/05/2024 05:53
[2024-09-04 19:25] VITALS: BP 111/64; PULSE 90
== END 2024-09-04 20:12 | disposition home or self-care (01) ==
LOC: US 18:35 → FBC 18:44
PROVIDERS: Visit Provider Obstetrics & Gynecology
DX: O24.410 Gestational diabetes mellitus in pregnancy, diet controlled (principal); Z3A.30 30 weeks gestation of pregnancy
CPT/HCPCS: 76818

== ENCOUNTER 2024-09-07 00:16 | Outpatient (OUT) | payer OTHER, SELFPAY ==
--- OUTSIDE RECORDS SUMMARY | 2024-09-07 00:20 | XMS_ITS | CCD ---
Author Organization [facility] Care Team Providers Care Radiotelegraph Operator Name Role Phone KEYONA, DR LAWRENCE Admitting [...] Unavail able KEYONA, DR LAWRENCE Consulting Unavailable KYEONA, DR LAWRENCE Admitting Unavailable KEYONA, DR LAWRENCE [...] Attending Unavailable TELLY, DR PENNINGTON Consulting Unavailable LEONARD, DR RIGO [place] Consulting Unavailable KEYONA, DR LAWRENCE Consulting Unavailable Bandar Cueto MDishna Primary Care Provider [phone] KEYONA, LEE Attending Unavailable KEYONA, LEE Attending Unavailable KEYONA, LEE Attending Unavailable KEYONA, LEE Attending Unavailable KEYONA, LEE Attending Unavailable KEYONA, LEE Attending Unavailable KEYONA, LEE Attending Unavailable Allergies Allergy Classification Reported Allergen(s) Allergy Type Date of Onset Reaction(s) Facility (2 sources) Acetaminophen / HYDROcodone Drug Allergy [facility] Repository Medications Current Medications Medication Drug Class(es) Dates Sig (Normalized) Sig (Original) aspirin 81 mg delayed release oral tablet (3 sources) Platelet Aggregation Inhibitor, Nonsteroidal Anti-inflammatory Drug take 1 tablet by mouth once daily aspirin 81 MG EC tablet Take 81 mg by mouth Daily Active Blood Glucose Monitoring Suppl (D-Care Glucometer) w/Device kit (6 sources) Start: 08-09-2024 End: 08-09-2025 Blood Glucose Monitoring Suppl (D-Care Glucometer) w/Device kit Indications: Elevated glucose tolerance test 1 kit Daily Use four times daily to check FSBS. In the morning prior to breakfast & 1 hour after each meal for a total of 4times daily. 1 kit 08/09/2024 08/09/2025 Active folic acid 1 mg oral tablet (18 sources) take 1 tablet by mouth once daily folic acid (Folvite) 1 MG tablet Take 1 mg by mouth 1 (one) time each day at the same time Active isopropyl alcohol 0.7 ml/ml medicated pad (6 sources) Start: 08-09-2024 Alcohol Swabs (Alcohol Prep [...] W/AND (SUSP) EXPOS COVID-19] Onset: 06-14-2022 Unclassified (19 sources) OB Reminders Onset: 04-23-2024 04-23-2024 Past [...] Test Name Value Interpretation Reference Range Facility OB BPP W NON-STRESS on 09-05-2024 [place] [address] Ultrasound Report Signed Patient: ANNA LAW MR#: [id number] : 1990 Acct:[id number] Age/Sex: 34 / F ADM Date: 09/04/24 Loc: US Attending Dr: Lee Rand D.O. Ordering Physician: Lee Rand D.O. Date of Service: 09/04/24 Procedure(s): US OB BPP w non-stress Accession Number(s): [id number] cc: Lee Rand D.O.; Physician,Non-Staff M.Herbert The [address] [address] Patient Name: ANNA LAW MRN: [id number] date: 1990 Sex: F Assigned Patient Location: [facility] Current Patient Location: Accession/Order Number: [id number] Exam Date: 09/04/2024 18:52 Report Date: 09/05/2024 05:53 At the request of: LEE RAND Procedure: US OB BPP w non-stress EXAMINATION: US OB BPP w non-stress HISTORY:DIET CONTROLLED GESTATIONAL DIABETES MELLITUS O24.410 COMPARISON: Ultrasound OB anatomy 06/23/2024 TECHNIQUE: Ultrasound biophysical profile was performed in the radiology department. BREATHING MOVEMENTS: 2 GROSS BODY MOVEMENTS: 2 TONE: 2 QUALITATIVE AMNIOTIC FLUID VOLUME: 2 PRESENTATION: BREECH HEART RATE: 143.62 bpm AMNIOTIC FLUID VOLUME: 17.74 cm GESTATIONAL AGE: 30 weeks 3 days US/US OB BPP w non-stress IMPRESSION: 1. Total biophysical profile score: 8 Electronically authenticated by: TIFF BAUMANN Date: 09/05/2024 05:53 Dictated By: Tiff Baumann M.D. Signed By: 09/05/24 0555 DD/ 0553 TD/TT: Saturator Operator: [facility] Radiology, Radiologist, MD - 09/05/2024 [place] [address] Ultrasound Report Signed Patient: ANNA LAW MR#: [id number] : 1990 Acct:[id number] Age/Sex: 34 / F ADM Date: 09/04/24 Loc: US Attending Dr: Lee Rand D.O. Ordering Physician: Lee Rand D.O. Date of Service: 09/04/24 Procedure(s): US OB BPP w non-stress Accession Number(s): [id number] cc: Lee Rand D.O.; Physician,Non-Staff [facility] [place] [id number] Patient Name: ANNA LAW MRN: [facility]:[id number] date: 1990 Sex: F Assigned Patient Location: [facility] Current Patient Location: Accession/Order Number: [id number] Exam Date: 09/04/2024 18:52 Report Date: 09/05/2024 05:53 At the request of: LEE KEYONA Procedure: US OB BPP w non-stress EXAMINATION: US OB BPP w non-stress HISTORY:DIET CONTROLLED GESTATIONAL DIABETES MELLITUS O24.410 COMPARISON: Ultrasound OB anatomy 06/23/2024 TECHNIQUE: Ultrasound biophysical profile was performed in the radiology department. BREATHING MOVEMENTS: 2 GROSS BODY MOVEMENTS: 2 TONE: 2 QUALITATIVE AMNIOTIC FLUID VOLUME: 2 PRESENTATION: BREECH HEART RATE: 143.62 bpm AMNIOTIC FLUID VOLUME: 17.74 cm GESTATIONAL AGE: 30 weeks 3 days US/US OB BPP w non-stress IMPRESSION: 1. Total biophysical profile score: 8 Electronically authenticated by: TIFF BAUMANN Date: 09/05/2024 05:53 Dictated By: Tiff Baumann M.D. Signed By: 09/05/2455 DD/ 2 TD/TT: Saturator Operator: [facility] Radiology Study observation (narrative) [facility] US OB BPP W NON-STRESS Ordered By: Radiologist Radiology on 09-05-2024 [facility] Work Phone: Urinalysis macro (dipstick) panel (U)on 08-29-2024 Bilirubin, UA Negative Negative - 4(70) +++ mg/dL [facility] Blood, UA Positive Negative - 50 Yang/mcL [facility] Comment on above: trace-intact Clarity, UA Clear [facility] Color, UA Yellow [facility] Glucose, UA Negative Negative - 2000(110) ++++ mg/dL [facility] Interpretation and review of laboratory results Abnormal [facility] Ketones, UA Positive Negative - 160(16) ++++ mg/dL [facility] Comment on above: 40 Leukocytes, UA Trace Negative - 500+++ Derik/mcL [facility] Nitrite, UA Negative Negative - Positive [facility] pH, UA 5.5 5 - 9 [facility] Protein, UA Trace Negative - 2000(20) ++++ mg/dL [facility] Spec Grav, UA 1.025 1 - 1.03 [facility] Urobilinogen, UA 1.0 0.2 - 12 mg/dL [facility] GLUCOSE TOLERANCE 3 HOURon 0 07-28-2024 GLUCOSE TOLERANCE 3 HOUR High mg/dL [facility] Comment on above: GLU FAST 87 (<95) Co l: 07/28/24 0638 GLU 1HR 199H (<180) Col: 07/28/24 0739 GLU 2HR 173H (<155) Col: 07/28/24 0839 GLU 3HR 94 (<140) Col: 07/28/24 0939 Interpretation and review of laboratory results Abnormal [facility] GLUCOSE 1 HOURon 07-21-2024 Glucose [Mass/Vol] 154 mg/dL High NINF - 13 0 mg/dL [facility] Interpretation and review of laboratory results Abnormal [facility] macro (dipstick) panel (U)on 07-12-2024 Bilirubin, UA Negative Negative - 4(70) +++ mg/dL [facility] Blood, UA Negative Negative - 50 Yang/mcL [facility] Clarity, UA Clear [facility] Color, UA Yellow [facility] Glucose, UA Negative Negative - 2000(110) ++++ mg/dL [facility] Interpretation and review of laboratory results Normal [facility] Ketones, UA Negative Negative - 160(16) ++++ mg/dL [facility] Leukocytes, UA Negative Negative - 500+++ Derik/mcL [facility] Nitrite, UA Negative Negative - Positive [facility] pH, UA 7 5 - 9 [facility] Protein, UA Negative Negative - 2000(20) ++++ mg/dL [facility] Spec Grav, UA 1.02 1 - 1.03 [facility] Urobilinogen, UA 1.0 0.2 - 12 mg/dL [facility] AFP, SERUM, OPEN SPINA BIFID Aon 07-04-2024 AFP MOM 1.60 . [facility] AFP VALUE 91.9 ng/mL . [facility] COMMENT: Comment . [facility] Comment on above: Sonia Sullivan , Ph.D., [facility] Director References: Available Upon Request. Multiples Of Median Cutoffs For AFP Elevations Bhandari 2.5 Black 2.8 IDD 2.0 Twins 4.5 Abbreviation Definitions IDD - Insulin Dep Diabetes OSBR - Open Spina Bifida Risk For further inquiries contact [employer] at [phone]. This test was developed and its performance characteristics determined by [employer]. It has not been cleared or approved by the Food and Drug Administration. Performed at: [facility] [address], [place] [id number] College Specialist: [facility], Phone: [phone] GEST. AGE ON COLLECTION DATE 21.0 . weeks [facility] GESTAT. AGE BASED ON LMP . [facility] Comment on above: Recalculations are n ot recommended when gestational dating by LMP and ultrasound are within 10 days. INSULIN DEP DIABETES No . [facility] INTERPRETATION Comment . [facility] Comment on above: Interpretation: Scre en Negative [...] Customer Services to discuss available options. The [employer] recommends amniocentesis be offered to women age 35 and older. [age] [facility] MULTIPLE GESTATION No . [facility] OSBR RISK 1 IN 2100 . [facility] RACE . [facility] RESULTS Report . [facility] TEST RESULTS: Negative . [facility] WEIGHT 177 . lbs [facility] N LMP [id number] 2 18 N 1 Y 177 N N N White/ [facility] RECURRENT VAGINITIS (HTRX)on 06-13-2024 ATOPOBIUM VAGINAE 30.301 Abnormal [facility] ATOPOBIUM VAGINAE Detected Abnormal [facility] BVAB 2,3 (BACTERIAL VAGINOSIS ASSOCIATED BACTERIA 2, 3); MOBILUNCUS SPP 0 [facility] BVAB 2,3 (BACTERIAL VAGINOSIS ASSOCIATED BACTERIA 2, 3); MOBILUNCUS SPP Not detected [facility] KAITLYNN ALBICANS, PARAPSILOSIS, TROPICALIS 0 [facility] KAITLYNN ALBICANS, PARAPSILOSIS, TROPICALIS Not detected [facility] KAITLYNN GLABRATA 0 [facility] KAITLYNN GLABRATA Not detected [facility] KAITLYNN KRUSEI 0 [facility] KAITLYNN KRUSEI Not detected [facility] CHLAMYDIA TRACHOMATIS 0 [facility] CHLAMYDIA TRACHOMATIS Not detected [facility] GARDNERELLA VAGINALIS 21.1 Abnormal [facility] GARDNERELLA VAGINALIS Detected Abnormal [facility] Interpretation and review of laboratory results Abnormal [facility] MEGASPHAERA (TYPES 1, 2) 0 [facility] MEGASPHAERA (TYPES 1, 2) Not detected [facility] MYCOPLASMA GENITALIUM 0 [facility] MYCOPLASMA GENITALIUM Not detected [facility] NEISSERIA GONORRHOEAE 0 [facility] NEISSERIA GONORRHOEAE Not detected [facility] TRICHOMONAS VAGINALIS 0 [facility] TRICHOMONAS VAGINALIS Not detected [facility] Urinalysis macro (dipstick) panel (U)on 06-11-2024 Bilirubin, UA Negative Negative - 4(70) +++ mg/dL [facility] Blood, UA Negative Negative - 50 Yang/mcL [facility] Clarity, UA Clear [facility] Color, UA Yellow [facility] Glucose, UA Negative Negative - 1999(110) ++++ mg/dL [facility] Interpretation and review of laboratory results Normal [facility] Ketones, UA Negative Negative - 160(16) ++++ mg/dL [facility] Leukocytes, UA Negative Negative - 500+++ Derik/mcL [facility] Nitrite, UA Negative Negative - Positive [facility] pH, UA 5.5 5 - 9 [facility] Protein, UA Negative Negative - 1999(20) ++++ mg/dL [facility] Spec Grav, UA 1.02 1 - 1.03 [facility] Urobilinogen, UA 1.0 0.2 - 12 mg/dL [facility] Urinalysis macro (dipstick) panel (U)on 05-08-2024 Bilirubin, UA Negative Negative - 4(70) +++ mg/dL [facility] Blood, UA Positive Negative - 50 Yang/mcL [facility] Comment on above: trace-intact Clarity, UA Clear [facility] Color, UA Yellow [facility] Glucose, UA Negative Negative - 1999(110) ++++ mg/dL [facility] Interpretation and review of laboratory results Abnormal [facility] Ketones, UA Negative Negative - 160(16) ++++ mg/dL [facility] Leukocytes, UA Negative Negative - 500+++ Derik/mcL [facility] Nitrite, UA Negative Negative - Positive [facility] pH, UA 6 5 - 9 [facility] Protein, UA Negative Negative - 1999(20) ++++ mg/dL [facility] Spec Grav, UA 1.025 1 - 1.03 [facility] Urobilinogen, UA 0.2 0.2 - 12 mg/dL [facility] ALL CBC WITH AUTO DIFFon BASOPHILS ABSOLUTE AUTO 0.0 [facility] Basophils/100 WBC (Bld) 0.4 % 0.2 - 2.0 % [facility] Eosinophils/100 WBC (Bld) 0.9 % 0.9 - 7.0 % [facility] Erythrocyte distribution width (RBC) [Ratio] 11.9 % 11.0 - 15.0 % [facility] Hematocrit (Bld) [Volume fraction] 37.1 % 36.0 - 48.0 % [facility] Hemoglobin (Bld) [Mass/Vol] 12.6 g/dL 12.0 - 16.0 g/dL [facility] IMMATURE GRANULOCYTES ABS AUTO 0.03 [facility] Immature granulocytes/100 WBC (Bld) 0.4 % 0.0 - 0.5 % [facility] Interpretation and review of laboratory results Abnormal [facility] LYMPHOCYTES ABSOLUTE AUTO 1.7 [facility] Lymphocytes/100 WBC (Bld) 21.2 % 20.5 - 60.0 % [facility] MCH (RBC) [Entitic mass] 31.7 pg 26.7 - 34.0 pg [facility] MCHC (RBC) [Mass/Vol] 34.0 g/dL 29.9 - 35.2 g/dL [facility] MCV (RBC) [Entitic vol] 93.5 fL 81.0 - 99.0 fL [facility] MONOCYTES ABSOLUTE AUTO 0.6 [facility] Monocytes/100 WBC (Bld) 6.8 % 1.7 - 12.0 % [facility] NEUTROPHILS ABSOLUTE AUTO 5.7 [facility] Neutrophils/100 WBC (Bld) 70.3 % 43.0 - 75.0 % [facility] Platelet mean volume (Bld) [Entitic vol] 9.8 fL 9.5 - 13.5 fL [facility] TBH EO # 0.1 [facility]H PLT 219 [facility] TB RBC 3.97 Low [facility] TB WBC 8.1 [facility] HCG ( test) Ql (U)o n 04-05-2024 Interpretation and review of laboratory results Abnormal [facility] Preg Test, Ur Positive [facility] Urinalysis macro (dipstick) panel (U)on 04-05-2024 Bilirubin, UA Negative Negative - 4(70) +++ mg/dL [facility] Blood, UA Positive Negative - 50 Yang/mcL [facility] Comment on above: trace intact Clarity, UA Clear [facility] Color, UA Yellow [facility] Glucose, UA Negative Negative - 1999(110) ++++ mg/dL [facility] Interpretation and review of laboratory results Abnormal [facility] Ketones, UA Negative Negative - 160(16) ++++ mg/dL [facility] Leukocytes, UA Trace Negative - 500+++ Derik/mcL [facility] Nitrite, UA Negative Negative - Positive [facility] pH, UA 6.5 5 - 9 [facility] Protein, UA Negative Negative - 1999(20) ++++ mg/dL [facility] Spec Grav, UA 1.015 1 - 1.03 [facility] Urobilinogen, UA 0.2 0.2 - 12 mg/dL [facility] CBC AUTO DIFFon 06-05-2022 BASO # 0.0 103/ul Normal 0.0-0.1 [facility] Comment on above: Performed By: #### C BC #### [facility] [address] [place] [address] Dr. Sandi Michelle Basophils/100 WBC (Bld) 0.2 % Normal 0.2-2.0 [facility] Comment on above: Performed By: #### C BC #### [facility] [address] [place] [address] Dr. Sandi Michelle EO # 0.0 103/ul Normal 0.0-0.7 [facility] Comment on above: Performed By: #### C BC #### [facility] [address] [place] [address] Dr. Sandi Michelle Eosinophils/100 WBC (Bld) 0.2 % Critically low 0.9-7.0 [facility] Comment on above: Performed By: #### C BC #### [facility] [address] [place] [address] Dr. Sandi Michelle Erythrocyte distribution width (RBC) [Ratio] 14.3 % Normal 11.0-15.0 [facility] Comment on above: Performed By: #### C BC #### [facility] [address] [address] [address] Sandi Michelle Hematocrit (Bld) [Volume fraction] 27.3 % Critically low 36.0-48.0 [facility] Comment on above: Performed By: #### C BC #### [facility] [address] [place] [address] Dr. Sandi Michelle Hemoglobin (Bld) [Mass/Vol] 9.3 g/dL Critically low 12.0-16.0 [facility] Comment on above: Result Comment: DELI VERY Performed By: #### C BC #### [facility] [address] [place] [address] Dr. Sandi Michelle IG # 0.14 10e3/ul Critically high 0.00-0.03 [facility] Comment on above: Performed By: #### C BC #### [facility] [address] [place] [address] Dr. Sandi Michelle IG % 1.1 % Critically high 0.0-0.5 [facility] Comment on above: Performed By: #### C BC #### [facility] [address] [place] [address] Dr. Sandi Michelle LYMPH # 1.6 103/ul Normal 1.2-3.8 [facility] Comment on above: Performed By: #### C BC #### [facility] [address] [place] [address] Dr. Sandi Michelle Lymphocytes/100 WBC (Bld) 12.1 % Critically low 20.5-60.0 [facility] Comment on above: Performed By: #### C BC #### [facility] [address] [place] [address] Dr. Sandi Michelle MANUAL DIFF REQ NO Normal [facility] Comment on above: Performed By: #### C BC #### [facility] [address] [place] [address] Dr. Sandi Michelle MCH (RBC) [Entitic mass] 31.8 pg Normal 26.7-34.0 [facility] Comment on above: Performed By: #### C BC #### [facility] [address] [address] [address] Sandi Michelle MCHC (RBC) [Mass/Vol] 34.1 g/dL Normal 29.9-35.2 [facility] Comment on above: Performed By: #### C BC #### [facility] [address] [place] [address] [address] Sandi Michelle MCV (RBC) [Entitic vol] 93.5 fL Normal 81.0-99.0 [facility] Comment on above: Performed By: #### C BC #### [facility] [address] [address] [address] Sandi Michelle MONO # 0.9 103/ul Critically high 0.3-0.8 [facility] Comment on above: Performed By: #### C BC #### [facility] [address] [address] [address] Sandi Michelle Monocytes/100 WBC (Bld) 6.8 % Normal 1.7-12.0 [facility] Comment on above: Performed By: #### C BC #### [facility] [address] [address] [address] Sandi Michelle NEUT # 10.3 103/ul Critically high 1.4-6.5 [facility] Comment on above: Performed By: #### C BC #### [facility] [address] [address] [address] Sandi Michelle Neutrophils/100 WBC (Bld) 79.6 % Critically high 43.0-75.0 [facility] Comment on above: Performed By: #### C BC #### [facility] [id number] Sandi Michelle Platelet mean volume (Bld) [Entitic vol] 9.8 fL Normal 9.5-13.5 [facility] Comment on above: Performed By: #### C BC #### [facility] [address] [address] [address] Sandi Michelle PLT 138 103/ul Critically low 150-450 [facility] Comment on above: Performed By: #### C BC #### [facility] [address] [address] [address] Sandi Michelle RBC 2.92 106/ul Critically low 4.20-5.40 [facility] Comment on above: Performed By: #### C BC #### [facility] [address] [address] [address] Sandi Michelle WBC 12.9 103/ul Critically high 4.0-11.0 [facility] Comment on above: Performed By: #### C BC #### [facility] [address] [address] [address] Sandi Michelle CBC AUTO DIFFon 06-04-2022 BASO # 0.0 103/ul Normal 0.0-0.1 [facility] Comment on above: Performed By: #### C BC #### [facility] [address] [place] [address] Dr. Sandi Michelle Basophils/100 WBC (Bld) 0.3 % Normal 0.2-2.0 [facility] Comment on above: Performed By: #### C BC #### [facility] [address] [place] [address] Dr. Sandi Michelle EO # 0.0 103/ul Normal 0.0-0.7 [facility] Comment on above: Performed By: #### C BC #### [facility] [address] [place] [address] Dr. Sandi Michelle Eosinophils/100 WBC (Bld) 0.1 % Critically low 0.9-7.0 [facility] Comment on above: Performed By: #### C BC #### [facility] [address] [place] [address] Dr. Sandi Michelle Erythrocyte distribution width (RBC) [Ratio] 14.4 % Normal 11.0-15.0 [facility] Comment on above: Performed By: #### C BC #### [facility] [address] [place] [address] Dr. Sandi Michelle Hematocrit (Bld) [Volume fraction] 37.2 % Normal 36.0-48.0 [facility] Comment on above: Performed By: #### C BC #### [facility] [address] [address] [address] Sandi Michelle Hemoglobin (Bld) [Mass/Vol] 12.9 g/dL Normal 12.0-16.0 [facility] Comment on above: Performed By: #### C BC #### [facility] [address] [address] [address] Sandi Michelle IG # 0.23 10e3/ul Critically high 0.00-0.03 [facility] Comment on above: Performed By: #### C BC #### [facility] [address] [address] [address] Sandi Michelle IG % 1.6 % Critically high 0.0-0.5 [facility] Comment on above: Performed By: #### C BC #### [facility] [address] [place] [address] Dr. Sandi Michelle LYMPH # 2.3 103/ul Normal 1.2-3.8 [facility] Comment on above: Performed By: #### C BC #### [facility] [address] [place] [address] Dr. Sandi Michelle Lymphocytes/100 WBC (Bld) 16.0 % Critically low 20.5-60.0 [facility] Comment on above: Performed By: #### C BC #### [facility] [address] [place] [address] Dr. Sandi Michelle MANUAL DIFF REQ NO Normal [facility] Comment on above: Performed By: #### C BC #### [facility] [address] [address] [address] Sandi Michelle MCH (RBC) [Entitic mass] 32.3 pg Normal 26.7-34.0 [facility] Comment on above: Performed By: #### C BC #### [facility] [address] [place] [address] Dr. Sandi Michelle MCHC (RBC) [Mass/Vol] 34.7 g/dL Normal 29.9-35.2 [facility] Comment on above: Performed By: #### C BC #### [facility] [address] [place] [address] Dr. Sandi Michelle MCV (RBC) [Entitic vol] 93.0 fL Normal 81.0-99.0 [facility] Comment on above: Performed By: #### C BC #### [facility] [address] [place] [address] Dr. Sandi Michelle MONO # 0.8 103/ul Normal 0.3-0.8 [facility] Comment on above: Performed By: #### C BC #### [facility] [address] [place] [address] Dr. Sandi Michelle Monocytes/100 WBC (Bld) 5.8 % Normal 1.7-12.0 [facility] Comment on above: Performed By: #### C BC #### [facility] [address] [place] [address] Dr. Sandi Michelle NEUT # 10.7 103/ul Critically high 1.4-6.5 [facility] Comment on above: Performed By: #### C BC #### [facility] [address] [place] [address] Dr. Sandi Michelle Neutrophils/100 WBC (Bld) 76.2 % Critically high 43.0-75.0 [facility] Comment on above: Performed By: #### C BC #### [facility] [address] [place] [address] Dr. Sandi Michelle Platelet mean volume (Bld) [Entitic vol] 10.9 fL Normal 9.5-13.5 [facility] Comment on above: Performed By: #### C BC #### [facility] [address] [place] [address] Dr. Sandi Michelle PLT 194 103/ul Normal 150-450 [facility] Comment on above: Performed By: #### C BC #### [facility] [address] [place] [address] Dr. Sandi Michelle RBC 4.00 106/ul Critically low 4.20-5.40 [facility] Comment on above: Performed By: #### C BC #### [facility] [address] [place] [address] Dr. Sandi Michelle WBC 14.0 103/ul Critically high 4.0-11.0 [facility] Comment on above: Performed By: #### C BC #### [facility] [address] [place], [place] [address] Dr. Sandi Michelle Covid-19 [facility]on 05-25 SARS-CoV-2 (COVID-19) RNA ALETHEA+probe Ql (Unsp spec) Not detected Normal NOT DETECTED [facility] Comment on above: Result Comment: [...] for this test is supported by the [employer] Acoustic Analyst of Health and Human Service's declaration that [...] be used). Performed By: #### C VDTBH ####[facility] [address] [place], [place] [address]Pi. Sandi Michelle DRUG SCREEN RAPID (URINE)on 06-04-2022 AMP Negative Normal NEGATIVE [facility] Comment on above: Performed By: #### D RUGRPD ####[facility] [address] [place], [place] [address]Rw. Sandi Michelle BAR Negative Normal NEGATIVE [facility] Comment on above: Performed By: #### D RUGRPD ####[facility] [address] [place], [place] [address]Sm. Sandi Michelle BUP Negative Normal NEGATIVE [facility] Comment on above: Performed By: #### D RUGRPD ####[facility] [address] [place] [phone]. Sandi Michelle BZO Negative Normal NEGATIVE [facility] Comment on above: Performed By: #### D RUGRPD ####[facility] [address] [place] [phone]. Sandi Michelle NINO Negative Normal NEGATIVE [facility] Comment on above: Performed By: #### D RUGRPD ####[facility] [address] [place], [place] [id number]. Sandi Michelle CUT-OFFS SEE BELOW Normal [facility] Comment on above: Result Comment: [...] 300 ng/mL Performed By: #### D RUGRPD ####[facility] [address] [place], [place] [address]Dr. Sandi Michelle DRUG CUT HEADER DRUG CLASS TEST SYSTEM CUT-OFF CONCENTRATIONS ARE FOLLOWS: Normal [facility] Comment on above: Performed By: #### D RUGRPD ####[facility] [address] [place], [place] [address]Dr. Sandi Michelle mAMP Negative Normal NEGATIVE [facility] Comment on above: Performed By: #### D RUGRPD ####[facility] [address] [place] [phone]. Sandi Michelle MTD Negative Normal NEGATIVE [facility] Comment on above: Performed By: #### D RUGRPD ####[facility] [address] [place] [phone]. Sandi Michelle OPI Negative Normal NEGATIVE [facility] Comment on above: Performed By: #### D RUGRPD ####[facility] [address] [place] [phone]. Sandi Michelle OXY Negative Normal NEGATIVE [facility] Comment on above: Performed By: #### D RUGRPD ####[facility] [address] [place] [phone]. Sandi Michelle PCP Negative Normal NEGATIVE [facility] Comment on above: Performed By: #### D RUGRPD ####[facility] [address] [place] [address]Dr. Sandi Michelle PPX Negative Normal NEGATIVE [facility] Comment on above: Performed By: #### D RUGRPD ####[facility] [address] [place] [address]Dr. Sandi Michelle TCA Negative Normal NEGATIVE [facility] Comment on above: Performed By: #### D RUGRPD ####[facility] [address] [place] [address]Dr. Sandi Michelle THC Negative Normal NEGATIVE [facility] Comment on above: Performed By: #### D RUGRPD ####[facility] [address] [place], [place] [address]Dr. Sandi Michelle TYPE AND SCREENon 06-04-2022 TYPE AND SCREEN Negative Normal [facility] Comment on above: Performed By: #### T NS ####[facility] [address] [place], [place] [address]Dr. Sandi Michelle US PREG BIOPHY W NON [...] RIGO FISCHER Date: 2022-05-30 08:30 Normal [facility] GROUP B STREP CULTUREon S. agalactiae Ag Ql (Unsp spec) Culture Observations: NEGATIVE FOR GROUP B STREPTOCOCCUS. Normal [facility] Comment on above: Performed By: #### G BSCX ####[facility] [address] [place], [place] [address]VzDen Michelle US PREG BIOPHY W NON STRESSo [...] by: RIGO FISCHER Date: 2022-05-23 09:41 Normal [facility] US PREG BIOPHY W NON STRESSo [...] by: RIGO FISCHER Date: 2022-05-16 16:10 Normal [facility] US PREG GROWTHon 05-11-2022 US PREG GROWTH EXAMINATION: US PREG GROWTH, US PREG CERVICAL LENGTH HISTORY: Excessive growth affecting management of mother COMPARISON: Ultrasound growth 04/27/2022 FINDINGS: Heart Rate: 137.8 bpm (accession [id number]), 167.3 bpm (accession [id number]) Number: 1.0 Position: BREECH Amniotic Fluid Volume: [...] change with Valsalva. Electronically authenticated by: TIFF BAUMANN Date: 2022-05-11 19:19 Normal [facility] US PREG GROWTHon 04-27-2022 US PREG [...] cm in length. Electronically authenticated by: TIFF BAUMANN Date: 2022-04-27 20:51 Normal [facility] GLUCOSE - 1HRon 03-15-2022 Glucose [Mass/Vol] 137 mg/dL Critically high 74-106 T [facility] Comment on above: Performed By: #### C BC #### [facility] [address] [place] [address] Dr. Sandi Michelle HEMOGRAM AND PLATELon 2021 Hematocrit (Bld) [Volume fraction] 34.9 % Critically low 36.0-48.0 [facility] Comment on above: Performed By: #### C BC #### [facility] [address] [place] [address] Dr. Sandi Michelle Hemoglobin (Bld) [Mass/Vol] 11.5 g/dL Critically low 12.0-16.0 [facility] Comment on above: Performed By: #### C BC #### [facility] [address] [place] [address] Dr. Sandi Michelle MCH (RBC) [Entitic mass] 31.8 pg Normal 26.7-34.0 [facility] Comment on above: Performed By: #### C BC #### [facility] [address] [place] [address] Dr. Sandi Michelle MCHC (RBC) [Mass/Vol] 33.0 g/dL Normal 29.9-35.2 [facility] Comment on above: Performed By: #### C BC #### [facility] [address] [place] [address] Dr. Sandi Michelle MCV (RBC) [Entitic vol] 96.4 fL Normal 81.0-99.0 [facility] Comment on above: Performed By: #### C BC #### [facility] [address] [place] [address] Dr. Sandi Michelle PLT 225 103/ul Normal 150-450 [facility] Comment on above: Performed By: #### C BC #### [facility] [address] [place] [address] Dr. Sandi Michelle RBC 3.62 106/ul Critically low 4.20-5.40 [facility] Comment on above: Performed By: #### C BC #### [facility] [address] [place] [address] [address] Sandi Michelle WBC 12.9 103/ul Critically high 4.0-11.0 [facility] Comment on above: Performed By: #### C BC #### [facility] [address] [place] [id number] Sandi Michelle CHLAMYDIA/GONOCOCCUS ALETHEA (SW AB/URINE/PAPon 02-04-2022 Chlamydia trachomatis, ALETHEA Negative Normal Negative [facility] Comment on above: Performed By: #### C T/NGNA #### [facility] [address] [place] [address] [address] Sandi Michelle Neisseria gonorrhoeae, ALETHEA Negative Normal Negative [facility] Comment on above: Performed By: #### C T/NGNA #### [facility] [address] [place] [address] [address] Sandi Michelle PAP ACOG PANEL 2: 30 to 65on 02-04-2022 . . Normal [facility] Comment on above: Result Comment: Perf ormed at: WB Performed By: #### 4 [id number] ####[facility] [address] [place] [address]Dr. Sandi Michelle Age Gdln ACOG Testing 30-65 Normal [facility] Comment on above: Performed By: #### 4 [id number] ####[facility] [address] [place] [address]Dr. Sandi Michelle DIAGNOSIS: Comment Normal [facility] Comment on above: Result Comment: NEGA TIVE FOR INTRAEPITHELIAL LESION OR MALIGNANCY. Performed at: WB Performed By: #### 4 [id number] ####[facility] [address] [place] [address]Dr. Sandi Michelle HPV Aptima Negative Normal Negative [facility] Comment on above: Result Comment: This nucleic acid amplification test detects fourteen high-risk HPV types (16,18,31,33,35,39,45,51,52,56,58,59,66,68) without differentiation. Performed at: =G Performed By: #### 4 [id number] ####[facility] [address] [place], [place] [address]Dr. Sandi Michelle Methodology: Comment Normal [facility] Comment on above: Result Comment: This liquid based ThinPrep(R) pap test was screened with the use of an image guided system. Performed at: WB Performed By: #### 4 [id number] ####[facility] [address] [place], [place] [address]Dr. Sandi Michelle Note: Comment Normal [facility] Comment on above: Result Comment: The Pap smear is a screening test designed to aid in the detection of premalignant and malignant conditions of the uterine cervix. It is not a diagnostic procedure and should not be used as the sole means of detecting cervical cancer. Both false-positive and false-negative reports do occur. . Performed at: WB Performed By: #### 4 [id number] ####[facility] [address] [place], [place] [address]Dr. Sandi Michelle Performed by: Comment Normal [facility] Comment on above: Result Comment: Vikas Mcclellan, Poultry Pathologist (ASCP) Performed at: WB Performed By: #### 4 [id number] ####[facility] [address] [place], [place] [address]Dr. Sandi Michelle Specimen adequacy: Comment Normal [facility] Comment on above: Result Comment: Sati sfactory for evaluation. No endocervical component is identified. Performed at: WB Performed By: #### 4 [id number] ####[facility] [address] [place], [place] [address]Dr. Sandi Michelle VAGINITIS/VAGINOSIS DNA PROB Nicholas 02-03-2022 Kaitlynn species Negative Normal Negative [facility] Comment on above: Performed By: #### V AGINT ####[facility] [address] [place], [place] [address]Dr. Sandi Michelle Gardnerella vaginalis Negative Normal Negative [facility] Comment on above: Performed By: #### V AGINT ####[facility] [address] [place], [place] [address]Dr. Sandi Michelle Trichomonas vaginalis Negative Normal Negative [facility] Comment on above: Performed By: #### V AGINT ####[facility] [address] [place], [place] [address]Zz. Sandi Michelle US PREG ANATOMY SINGLEon US [...] RIGO FISCHER Date: 2022-02-01 19:32 Normal [facility] AFP MATERNAL FOR SPINA BIFID Aon 01-21-2022 AFP MoM 1.24 Normal [facility] Comment on above: Performed By: #### A FPMAT ####[facility] [address] [place], [place] [address]RbDen Michelle AFP Value 55.2 ng/mL Normal [facility] Comment on above: Performed By: #### A FPMAT ####[facility] [address] [place] [phone]. Sandi Michelle AFP, Serum for Spina Bifida Report Normal [facility] Comment on above: Performed By: #### A FPMAT ####[facility] [address] [place] [phone]. Sandi Michelle Comment Comment Normal [facility] Comment on above: Result Comment: Iesha Sullivan, Ph.D., [facility] Director . References: Available Upon Request. . Multiples Of Median Cutoffs For AFP Elevations Bhandari 2.5 Black 2.8 IDD 2.0 Twins 4.5 Abbreviation Definitions IDD - Insulin Dep Diabetes OSBR - Open Spina Bifida Risk . For further inquiries contact [employer] at [phone]. . This test was developed and its performance characteristics determined by [employer]. It has not been cleared or approved by the Food and Drug Administration. Performed By: #### A FPMAT ####[facility] [address] [place] [address]Dr. Sandi Michelle Gest Age Collection Date 18.1 weeks Normal [facility] Comment on above: Performed By: #### A FPMAT ####[facility] [address] [place] [phone]. Sandi Michelle Gestat, Age Based on JOSE Normal [facility] Comment on above: Result Comment: 05/26 Recalculations are not recommended when gestational dating by LMP and ultrasound are within 10 days. Performed By: #### A FPMAT ####[facility] [address] [place] [phone]. Sandi Michelle Insulin Dep Diabetes Comment Normal [facility] Comment on above: Result Comment: Not provided. . Performed By: #### A FPMAT ####[facility] [address] [place] [phone]. Sandi Michelle Interpretation Comment Normal [facility] Comment on above: Result Comment: Inte [...] Customer Services to discuss available options. The [employer] recommends amniocentesis be offered to women age 35 and older. Performed By: #### A FPMAT ####[facility] [address] [place] [phone]. Sandi Michelle Maternal Age at JOSE 32.[address] [facility] Comment on above: Performed By: #### A FPMAT ####[facility] [address] [place] [address]Dr. Sandi Michelle Multiple Gestation No Normal [facility] Comment on above: Performed By: #### A FPMAT ####[facility] [address] [place] [address]Dr. Sandi Michelle OSBR Risk 1 IN 5748 Normal [facility] Comment on above: Performed By: #### A FPMAT ####[facility] [address] [place] [address]Dr. Sandi Michelle PDF . Normal [facility] Comment on above: Performed By: #### A FPMAT ####[facility] [address] [place] [phone]. Sandi Michelle Race Normal [facility] Comment on above: Performed By: #### A FPMAT ####[facility] [address] [place] [phone]. Sandi Michelle Test Results: Negative Normal [facility] Comment on above: Performed By: #### A FPMAT ####[facility] [address] [place] [address]DrDen Michelle HEP B SURFACE ANTIGEN SCREEN on 11-22-2021 HBsAg Screen Negative Normal Negative [facility] Comment on above: Performed By: #### H BSANS ####[facility] [address] [place] [address]Dr. Sandi Michelle HEPATITIS C VIRUS AB W/ REFL EX QUANTon 11-22-2021 HCV AB 0.1 s/co ratio Normal 0.0-0.9 [facility] Comment on above: Performed By: #### C BC #### [facility] [address] [place] [address] [address] Sandi Michelle Interpretation: Comment Normal [facility] Comment on above: Result Comment: Nega tive Not infected with HCV, unless recent infection is suspected or other evidence exists to indicate HCV infection. Performed By: #### C BC #### [facility] [address] [place] [address] [address] Sandi Michelle HIV 1 AND 2 WITH REFLEXon HIV Screen 4th Generation wRfx Non-Reactive Normal Non Reactive [facility] Comment on above: Result Comment: HIV Negative HIV-1/HIV-2 antibodies and HIV-1 p24 antigen were NOT detected. There is no laboratory evidence of HIV infection. Performed By: #### H IV12 ####[facility] [address] [place] [address]Dr. Sandi Michelle RPR QUANTon 11-22-2021 Rapid Plasma Reagin, Quant Non-Reactive Normal NonRea<1:1 [facility] Comment on above: Result Comment: Plea Note: This test does not meet current guidelines for screening and diagnosis of syphilis. This test is intended for following treatment response in patients being treated for syphilis infection. To screen for syphilis infection, a reflex cascade that includes both RPR and a treponema-specific assay should be utilized, such as Treponema pallidum (Syphilis) Screening [place] (304468) or Rapid Plasma Reagin (RPR) Test With Reflex to Quantitative RPR and Confirmatory Treponema pallidum Antibodies (474978). Performed By: #### C BC #### [facility] [address] [place] [id number] [address] Sandi Michelle RUBELLA AB IGGon 11-22-2021 Rubella Antibodies, IgG 9.33 index Normal Immune >0.99 [facility] Comment on above: Result Comment: Non- immune <0.90 Equivocal 0.90 - 0.99 Immune >0.99 Performed By: #### C BC #### [facility] [address] [place] [address] [address] Sandi Michelle CBC AUTO DIFFon 11-21-2021 BASO # 0.0 103/ul Normal 0.0-0.1 [facility] Comment on above: Performed By: #### C BC #### [facility] [address] [place] [address] [address] Sandi Michelle Basophils/100 WBC (Bld) 0.4 % Normal 0.2-2.0 [facility] Comment on above: Performed By: #### C BC #### [facility] [address] [place] [address] [address] Sandi Michelle EO # 0.1 103/ul Normal 0.0-0.7 [facility] Comment on above: Performed By: #### C BC #### [facility] [address] [place] [address] Dr. Sandi Michelle Eosinophils/100 WBC (Bld) 0.6 % Critically low 0.9-7.0 [facility] Comment on above: Performed By: #### C BC #### [facility] [address] [place] [address] [address] Sandi Michelle Erythrocyte distribution width (RBC) [Ratio] 11.9 % Normal 11.0-15.0 [facility] Comment on above: Performed By: #### C BC #### [facility] [address] [place] [address] Dr. Sandi Michelle Hematocrit (Bld) [Volume fraction] 37.1 % Normal 36.0-48.0 [facility] Comment on above: Performed By: #### C BC #### [facility] [address] [place] [address] [address] Sandi Michelle Hemoglobin (Bld) [Mass/Vol] 12.2 g/dL Normal 12.0-16.0 [facility] Comment on above: Performed By: #### C BC #### [facility] [address] [place] [address] [address] Sandi Michelle IG # 0.03 10e3/ul Normal 0.00-0.03 [facility] Comment on above: Performed By: #### C BC #### [facility] [address] [place] [address] Dr. Sandi Michelle IG % 0.4 % Normal 0.0-0.5 [facility] Comment on above: Performed By: #### C BC #### [facility] [address] [place] [address] Dr. Sandi Michelle LYMPH # 1.8 103/ul Normal 1.2-3.8 [facility] Comment on above: Performed By: #### C BC #### [facility] [address] [place] [address] Dr. Sandi Michelle Lymphocytes/100 WBC (Bld) 23.4 % Normal 20.5-60.0 [facility] Comment on above: Performed By: #### C BC #### [facility] [address] [place] [address] Dr. Sandi Michelle MANUAL DIFF REQ NO Normal [facility] Comment on above: Performed By: #### C BC #### [facility] [address] [place] [address] Dr. Sandi Michelle MCH (RBC) [Entitic mass] 31.4 pg Normal 26.7-34.0 [facility] Comment on above: Performed By: #### C BC #### [facility] [address] [place] [address] Dr. Sandi Michelle MCHC (RBC) [Mass/Vol] 32.9 g/dL Normal 29.9-35.2 [facility] Comment on above: Performed By: #### C BC #### [facility] [address] [place] [address] Dr. Sandi Michelle MCV (RBC) [Entitic vol] 95.6 fL Normal 81.0-99.0 [facility] Comment on above: Performed By: #### C BC #### [facility] [address] [place] [address] Dr. Sandi Michelle MONO # 0.5 103/ul Normal 0.3-0.8 [facility] Comment on above: Performed By: #### C BC #### [facility] [address] [place] [address] Dr. Sandi Michelle Monocytes/100 WBC (Bld) 6.6 % Normal 1.7-12.0 [facility] Comment on above: Performed By: #### C BC #### [facility] [address] [place] [address] Dr. Sandi Michelle NEUT # 5.4 103/ul Normal 1.4-6.5 [facility] Comment on above: Performed By: #### C BC #### [facility] [address] [place] [address] Dr. Sandi Michelle Neutrophils/100 WBC (Bld) 68.6 % Normal 43.0-75.0 [facility] Comment on above: Performed By: #### C BC #### [facility] [address] [place] [address] Dr. Sandi Michelle Platelet mean volume (Bld) [Entitic vol] 10.1 fL Normal 9.5-13.5 [facility] Comment on above: Performed By: #### C BC #### [facility] [address] [place] [address] Dr. Sandi Micehlle PLT 237 103/ul Normal 150-450 [facility] Comment on above: Performed By: #### C BC #### [facility] [address] [place] [address] Dr. Sandi Michelle RBC 3.88 106/ul Critically low 4.20-5.40 [facility] Comment on above: Performed By: #### C BC #### [facility] [address] [place] [address] Dr. Sandi Michelle WBC 7.9 103/ul Normal 4.0-11.0 [facility] Comment on above: Performed By: #### C BC #### [facility] [address] [place] [address] Dr. Sandi Michelle CULTURE URINEon 11-21-2021 CULTURE URINE Culture Observations : LIGHT GROWTH OF MIXED GENITAL MENDEZ. NO POTENTIAL PATHOGENS SEEN. Normal [facility] Comment on above: Performed By: #### U RCX #### [facility] [address] [place], [place] [address] Dr. Sandi Michelle GLYCOHEMOGLOBIN A1Con 2021 ADA RECOMMENDATION SEE BELOW Normal [facility] Comment on above: Result Comment: ADA RECOMMENDED LIMIT 4.0 - 6.0 ADA THERAPEUTIC TARGET < 7.0 ACTION SUGGESTED > 7.0 Performed By: #### A 1C ####[facility] [address] [place] [id number]. Sandi Michelle Glucose [Mass/Vol] 103 mg/dL Normal [facility] Comment on above: Performed By: #### A 1C ####[facility] [address] [place] [id number]. Sandi Michelle HbA1c (Bld) [Mass fraction] 5.2 % Normal 4.5-6.2 [facility] Comment on above: Performed By: #### A 1C ####[facility] [address] [place] [phone]. Sandi Michelle TYPE AND SCREENon 11-21-2021 TYPE AND SCREEN Negative Normal [facility] Comment on above: Performed By: #### T NS #### [facility] [address] [place] [address] [address] Sandi Michelle US PREG TVon 11-03-2021 [...] live intrauterine . Electronically authenticated by: TIFF BAUMANN Date: 2021-11-03 07:19 Normal [facility] PREG QUANT HCGon 10-14-2021 HCG QUANT 469 mIU/mL Normal [facility] Comment on above: Performed By: #### P REGQNT #### [facility] [address] [place], [place] [address] Dr. Sandi Michelle HCG RANGE SEE BELOW Normal [facility] Comment on above: Result Comment: 5-50 0-1 WEEK 40-300 1-2 WEEKS 100-1,000 2-3 WEEKS 500-6,000 3-4 WEEKS 5,000-200,000 1-2 MONTHS 10,000-100,000 2-3 MONTHS 3,000-50,000 2ND TRIMESTER 1,000-50,000 3RD TRIMESTER Performed By: #### P REGQNT #### [facility] [address] [place], [place] [address] Dr. Sandi Michelle PREG QUANT HCGon 10-12-2021 HCG QUANT 184 mIU/mL Normal [facility] Comment on above: Performed By: #### C BC #### [facility] [address] [place] [id number] [address] Sandi Michelle HCG RANGE SEE BELOW Normal [facility] Comment on above: Result Comment: 5-50 0-1 WEEK 40-300 1-2 WEEKS 100-1,000 2-3 WEEKS 500-6,000 3-4 WEEKS 5,000-200,000 1-2 MONTHS 10,000-100,000 2-3 MONTHS 3,000-50,000 2ND TRIMESTER 1,000-50,000 3RD TRIMESTER Performed By: #### C BC #### [facility] [address] [place], [place] [address] Dr. Sandi Michelle PROTEIN C FUNC ACTIVITYon Prt C Activity (Chromogenic) 130 % Normal [facility] Comment on above: Result Comment: Refe rence Range: 17 years and older: 73 - 180 Effective August 10, 2021 Prt C Activity, (Chromogenic) will be made non-orderable. This will not affect any profile that includes Prt C Activity (Chromogenic). [facility] offers [id number] Protein C Functional. For more information please contact your local [facility] User Experience Strategist. Performed By: #### P RCACT ####[facility] [address] [place] [address]Dr. Sandi Michelle FACTOR V LEIDEN MUTATION CIARAN LYSISon 07-27-2021 Factor V Leiden Comment Normal [facility] Comment on above: Result Comment: Resu lt: [id number] ([id number]) - Not Detected . This result is not associated with an increased risk for venous thromboembolism. See Additional Clinical Information and Comments. Additional Clinical Information: Venous thromboembolism is a multifactorial disease influenced by genetic, environmental, and circumstantial risk factors. The c.1601G>A (p. [id number]) variant in the F5 gene, commonly referred [...] c.*97G>A variant and Factor V Leiden (PMID: 14708108). Additional risk factors include but are not [...] health care providers to discuss results at [phone] ([phone]). . Test Details: Variant Analyzed: c.1601G>A (p. [id number]), referred to as Factor V Leiden . [...] developed and its performance characteristics determined by [employer]. It has not been cleared or approved by the Food and Drug Administration. . References: Masoud S, Hawa GUTIÉRREZ, Randy R, Moses WW, Luis A JH; ACMG Professional Practice and Guidelines Committee. Addendum: [employer] consensus statement on factor V Leiden mutation testing. [place] [facility]. 2020Sep 26. doi: 10.1038/e02579-762-52990-r. PMID: 73838648. . Miriam GAMING. Factor V Leiden Thrombophilia. 1998December 05 [Updated 2017Jul 28]. In: Jv MP, Delia HH, Ian RA, et al., editors. Jovita(R) [Internet]. [place] ([place]): [facility]; 4652-0351. Available from: https://www.ncbi.nlm.nih.gov/books/PLE8447/ . Jonh S, Hawa GUTIÉRREZ, Francisco Javier X, Leobardo B, Ash EB, Deysi P, Mari CS; ACMG Laboratory Acquisition Cost Estimator Committee. Venous thromboembolism laboratory testing (factor V Leiden and factor II c.*97G>A), 2018 update: a technical standard of the [employer] and [employer] (ACMG). [place] [facility] 2018 Jun;20(12):3337-2018. doi: 10.1038/h74038-276-1873-j. Epub 2017Apr 28. PMID: 94576259. . Martha Guillen, PhD, FACMG Lindsay Jaquez, PhD, FACMG Pete Brown, PhD, FACMG Geronimo Mcdaniel, PhD, FACMG Norm Hays, PhD, FACMG Maureen Mancilla, PhD, [facility] Performed By: #### F [facility] ####[address] [place], [place] [address]Yg. Sandi Michelle ANTITHROMBIN ACTIVITYon -0 Antithrombin Activity 102 % Normal 75-135 [facility] Comment on above: Result Comment: Dire ct Xa inhibitor anticoagulants such as rivaroxaban, apixaban and edoxaban will lead to spuriously elevated antithrombin activity levels possibly masking a deficiency. Performed By: #### C BC #### [facility] [address] [place], [place] [address] Dr. Sandi Michelle B-2 GLYCOPROTEIN AB IGGon Beta-2 Glycoprotein I Ab, IgG <9 Normal 0-20 [facility] Comment on above: Result Comment: The reference interval reflects a 3SD or 99th percentile interval, which is thought to represent a potentially clinically significant result in accordance with the International Consensus Statement on the classification criteria for definitive antiphospholipid syndrome (APS). J Thromb Haem 2006;4:295-306. Performed By: #### B 2GPG ####[facility] [address] [address]Dr. Sandi Michelle B2-GLYCOPROTEIN 1 AB IGMon 0 07-25-2021 Beta-2 Glycoprotein I Ab, IgM <9 Normal 0-32 [facility] Comment on above: Result Comment: The reference interval reflects a 3SD or 99th percentile interval, which is thought to represent a potentially clinically significant result in accordance with the International Consensus Statement on the classification criteria for definitive antiphospholipid syndrome (APS). J Thromb Haem 2006;4:295-306. Performed By: #### B GLYIGM ####[facility] [address] [id number]. Sandi Michelle LUPUS ANTICOAGULANT W/REFLEX on 07-24-2021 aPTT Coag (Bld) [Time] 30.9 s Normal 0.0-51.9 [facility] Comment on above: Performed By: #### L UPUSRF ####[facility] [address] [address]Dr. Sandi Michelle dRVVT 33.0 sec Normal 0.0-47.0 [facility] Comment on above: Performed By: #### L UPUSRF ####[facility] [address] [id number]. Sandi Michelle Interpretation Comment: Normal [facility] Comment on above: Result Comment: No l upus anticoagulant was detected. Performed By: #### L UPUSRF ####[facility] [address] [address]Dr. Sanjuanitasonia Michelle PROTEIN S ANTIGENon 07-24-20 21 Protein S, Free 104 % Normal 61-136 [facility] Comment on above: Performed By: #### P RTSAG ####[facility] [address] [address]Dr. Sandi Michelle Protein S, Total 90 % Normal 60-150 [facility] Comment on above: Result Comment: This test was developed and its performance characteristics determined by [employer]. It has not been cleared or approved by the Food and Drug Administration. Performed By: #### P RTSAG ####[facility] [address] [address]Dr. Sanjuanitasonia Miguel Angel PROTEIN S, FUNCTIONALon 06-26 Protein S-Functional 107 % Normal 63-140 [facility] Comment on above: Result Comment: Prot ein S activity may be falsely increased (masking an abnormal, low result) in patients receiving direct Xa inhibitor (e.g., rivaroxaban, apixaban, edoxaban) or a direct thrombin inhibitor (e.g., dabigatran) anticoagulant treatment due to assay interference by these drugs. Performed By: #### C BC #### [facility] [address] [place] [address] Dr. Sandi Michelle ANTICARDIOLIPIN AB (JEANIE) IGG on 07-23-2021 Anticardiolipin Ab,IgG,Qn <9 Normal 0-14 [facility] Comment on above: Result Comment: Nega tive: <15 Indeterminate: 15 - 20 Low-Med Positive: >20 - 80 High Positive: >80 Performed By: #### C ARDLIP #### [facility] [address] [place] [address] Dr. Sandi Michelle ANTICARDIOLIPIN AB (JEANIE) IGM on 07-23-2021 Anticardiolipin Ab,IgM,Qn 12 MPL U/mL Normal 0-12 [facility] Comment on above: Result Comment: Nega tive: <13 Indeterminate: 13 - 20 Low-Med Positive: >20 - 80 High Positive: >80 Performed By: #### C NYDI ####[facility] [address] [place], [place] [address]PqDen Michelle Vital Signs Date Time Vital Sign Value Performing Clinician Facility 08-29-2024 15:30-0500 Body mass index (BMI) [Ratio] 29.92 kg/m2 Lee Keyona DO Work Phone: [facility] 08-29-2024 15:30-0500 Body weight 84.1 kg Lee Keyona DO Work Phone: [facility] 08-29-2024 15:30-0500 Diastolic blood pressure 70 mm[Hg] Lee Keyona DO Work Phone: [facility] 08-29-2024 15:30-0500 Systolic blood pressure 120 mm[Hg] Lee Keyona DO Work Phone: [facility] 08-09-2024 09:39-0500 Body mass index (BMI) [Ratio] 30.18 kg/m2 Lee Keyona DO Work Phone: [facility] 08-09-2024 09:39-0500 Body weight 84.82 kg Lee Keyona DO Work Phone: [facility] 08-09-2024 09:39-0500 Diastolic blood pressure 64 mm[Hg] Lee Keyona DO Work Phone: [facility] 08-09-2024 09:39-0500 Systolic blood pressure 114 mm[Hg] Lee Keyona DO Work Phone: [facility] 07-12-2024 09:59-0500 Body mass index (BMI) [Ratio] 29.39 kg/m2 Lee Keyona DO Work Phone: [facility] 07-12-2024 09:59-0500 Body weight 82.61 kg Lee Keyona DO Work Phone: [facility] 07-12-2024 09:59-0500 Diastolic blood pressure 68 mm[Hg] Lee Keyona DO Work Phone: [facility] 07-12-2024 09:59-0500 Systolic blood pressure 108 mm[Hg] Lee Keyona DO Work Phone: [facility] 06-11-2024 16:44-0500 Body mass index (BMI) [Ratio] 28.59 kg/m2 Lee Keyona DO Work Phone: [facility] 06-11-2024 16:44-0500 Body weight 80.34 kg Lee Keyona DO Work Phone: [facility] 06-11-2024 16:44-0500 Diastolic blood pressure 70 mm[Hg] Lee Keyona DO Work Phone: [facility] 06-11-2024 16:44-0500 Systolic blood pressure 108 mm[Hg] Lee Keyona DO Work Phone: [facility] 05-08-2024 15:11-0400 Body mass index (BMI) [Ratio] 27.76 kg/m2 Lee Keyona DO Work Phone: [facility] 05-08-2024 15:11-0400 Body weight 78.02 kg Lee Keyona DO Work Phone: [facility] 05-08-2024 15:11-0400 Diastolic blood pressure 70 mm[Hg] Lee Keyona DO Work Phone: [facility] 05-08-2024 15:11-0400 Systolic blood pressure 112 mm[Hg] Lee Kyeona DO Work Phone: [facility] 04-05-2024 14:24-0400 Body mass index (BMI) [Ratio] 27.76 kg/m2 [facility] Nurse [facility] 04-05-2024 14:24-0400 Body weight 78.02 kg [facility] Nurse [facility] 04-05-2024 14:24-0400 Diastolic blood pressure 68 mm[Hg] [facility] Nurse [facility] 04-05-2024 14:24-0400 Systolic blood pressure 118 mm[Hg] [facility] Nurse [facility] 01-21-2022 03:06-0400 Body weight 72.[address] LEE RAND [facility] Comment on above: Performed By: #### A FPMAT ####[facility] [address] [place], [place] [address]QaDen Michelle Encounters Encounter Date Encounter Type Care Provider Facility Start: 09-05-2024 End: 09-05-2024 Clinisync Result Encounter Lee Keyona DO Work Phone: [facility] Unsolicited Start: 09-05-2024 End: 09-05-2024 Clinisync Result Encounter Lee Keyona DO Work Phone: [facility] Unsolicited Start: 08-29-2024 End: 08-29-2024 flow sheet Lee Keyona DO Work Phone: [facility] Comment on above: 29 weeks gestation o f ; Third trimester ; Diet controlled gestational diabetes mellitus (GDM) in third trimester Start: 08-29-2024 End: 08-29-2024 ambulatory LEE KEYONA Not Available Start: 08-29-2024 End: 08-29-2024 Bamboo flowsheet Lee Keyona DO Work Phone: [facility] Start: 08-29-2024 End: 08-29-2024 Bamboo flowsheet Lee Keyona DO Work Phone: [facility] Start: 08-09-2024 End: 08-09-2024 flow sheet Lee Keyona DO Work Phone: [facility] Comment on above: Second trimester pre gnancy; 26 weeks gestation of ; Elevated glucose tolerance test Start: 08-09-2024 End: 08-09-2024 ambulatory LEE KEYONA Not Available Start: 07-28-2024 End: 07-28-2024 Clinisync Result Encounter Lee Keyona DO Work Phone: [facility] Unsolicited Start: 07-28-2024 End: 07-28-2024 Clinisync Result Encounter Lee Keyona DO Work Phone: [facility] Unsolicited Start: 07-21-2024 End: 07-21-2024 Clinisync Result Encounter Lee Keyona DO Work Phone: [facility] Unsolicited Start: 07-21-2024 End: 07-21-2024 Clinisync Result Encounter Lee Keyona DO Work Phone: [facility] Unsolicited Start: 07-12-2024 End: 07-12-2024 Bamboo flowsheet Lee Keyona DO Work Phone: [facility] Start: 07-12-2024 End: 07-12-2024 Bamboo flowsheet Lee Keyona DO Work Phone: [facility] Start: 07-12-2024 End: 07-12-2024 flow sheet Lee Keyona DO Work Phone: [facility] Comment on above: Second trimester pre gnancy; with normal glucose tolerance test (GTT); 22 weeks gestation of ; Diabetes mellitus screening Start: 07-12-2024 End: 07-12-2024 ambulatory LEE KEYONA Not Available Start: 06-30-2024 End: 07-04-2024 Clinisync Result Encounter Lee Keyona DO Work Phone: [facility] External Department Unsolicited Start: 06-30-2024 End: 07-04-2024 Clinisync Result Encounter Lee Keyona DO Work Phone: [facility] External Department Unsolicited Start: 06-11-2024 End: 06-12-2024 ambulatory LEE KEYONA Not Available Start: 06-11-2024 End: 06-12-2024 flow sheet Lee Keyona DO Work Phone: [facility] Comment on above: Second trimester pre [...] Facility:[facility] Start: 04-29-2022 End: 04-30-[address] LEE RAND Facility:[facility] Start: 04-27-2022 End: 04-28-2022 ambulatory [...] Date Procedure Procedure Detail Performing Clinician Start: 09-05-2024 US OB BPP W NON-STRESS Lee Keyona DO Work Phone: Start: 08-29-2024 Urnls dip stick/tabl et rgnt non-auto w/o micrscp Lee Keyona DO Work Phone: Start: 07-28-2024 GLUCOSE TOLERANCE 3 HOUR Lee Keyona DO Work Phone: Start: 07-21-2024 GLUCOSE 1 [...] PM EST Routine [facility] [address] [place] [address] Lee Rand, DO [address] [place] [address] [facility] Start: 08-29-2024 End: 08-29-2024 [...] AM EST Routine [facility] [address] [place] [address] Lee Rand, DO [address] [facility] [place] [address] [facility] Start: 07-31-2024 End: 07-31-2024 Patient encounter procedure 07/31/2024 1:00 PM EST Office Visit [facility] [address] [facility] [facility] [place] [id number] Lee Rand, DO [address] [place] [address] [facility] Start: 07-12-2024 End: 07-12-2025 [...] Expected: 07/12/2024 (Approximate), Expires: 07/12/2025 [facility] Comment on above: Expected: 07/12/2024 (Approximate), Expires: 07/12/2025 Start: 07-12-2024 End: 07-12-2024 Patient encounter procedure [facility] Comment on above: Arrived Start: 06-11-2024 End: 06-11-2024 Patient encounter procedure 06/11/2024 3:50 PM EST Routine [facility] [address] [facility] [facility] [place] [id number] Lee Rand DO [address] [place] [address] [facility] Start: 06-11-2024 End: 12-09-2024 Alpha fetoprotein, maternal Alpha fetoprotein, maternal Lab Routine Second trimester Expected: 06/11/2024 (Approximate), Expires: 12/09/2024 [facility] Comment on above: Expected: 06/11/2024 (Approximate), [...] 04/05/2024 (Approximate), Expires: 04/05/2025 Start: 04-05-2024 End: 09-12-2025 Blood type and Indirect antibody screen panel - Blood Type and screen Lab Routine Missed menses Expected: 04/05/2024 (Approximate), Expires: 04/05/2025 [facility] Work Phone: Comment on above: Expected: 04/05/2024 (Approximate), Expires: 04/05/2025 Start: 04-05-2024 End: 04-05-2025 Drugs of abuse panel - Urine by Screen method Rapid drug screen, urine Lab Routine Encounter for supervision of normal first in first trimester , unspecified gestational age Expected: 04/05/2024 (Approximate), Expires: 04/05/2025 [facility] Comment on above: Expected: 04/05/2024 (Approximate), Expires: 04/05/2025 Start: 04-05-2024 End: 04-05-2025 US Pelvis transvaginal US OB transvaginal Imaging Routine Missed menses Expected: 04/05/2024 (Approximate), Expires: 04/05/2025 [facility] Comment on above: Expected: 04/05/2024 (Approximate), Expires: 04/05/2025 Bacteria identified in Urine by Culture Urine culture Microbiology Routine Missed menses Ordered: 04/05/2024 [facility] Comment on above: Ordered: 04/05/2024 CBC W Auto Different ial panel - Blood CBC and differential Lab Routine Missed menses Ordered: 04/05/2024 [facility] Comment on above: Ordered: 04/05/2024 CHLAMYDIA TRACHOMATI S (GENITO/STI) CHLAMYDIA TRACHOMATIS (GENITO/STI) Lab Routine STD exposure Ordered: 06/11/2024 [facility] Comment on above: Ordered: 06/11/2024 Hemoglobin A1c/Hemoglobin.total in Blood Hemoglobin A1c Lab Routine Missed menses Ordered: 04/05/2024 [facility] Comment on above: Ordered: 04/05/2024 Hepatitis B virus surface Ag [Presence] in Serum or Plasma by Immunoassay Hepatitis B surface antigen Lab Routine Missed menses Ordered: 04/05/2024 [facility] Comment on above: Ordered: 04/05/2024 Hepatitis C virus Ab [Presence] in Serum or Plasma by Immunoassay Hepatitis C antibody Lab Routine Missed menses Ordered: 04/05/2024 [facility] Comment on above: Ordered: 04/05/2024 HIV-1/HIV-2 antigen/antibody combination immunoassay HIV-1 and HIV-2 antibodies Lab Routine Missed menses Ordered: 04/05/2024 [facility] Comment on above: Ordered: 04/05/2024 Neisseria gonorrhoea e DNA [Presence] in Unspecified specimen by ALETHEA with probe detection Neisseria gonorrhea DNA probe, direct Lab Routine STD exposure Ordered: 06/11/2024 [facility] Comment on above: Ordered: 06/11/2024 Reagin Ab [Presence] in Serum by RPR RPR Lab Routine Missed menses Ordered: 04/05/2024 [facility] Comment on above: Ordered: 04/05/2024 Rubella antibody, IgG Rubella an tibody, IgG Lab Routine Missed menses Ordered: 04/05/2024 [facility] Comment on above: Ordered: 04/05/2024 SURESWAB(R) ADVANCED VAGINITIS PLUS, TMA SURESWAB(R) ADVANCED VAGINITIS PLUS, TMA Pathology and Cytology Routine Vaginal discharge Ordered: 06/11/2024 [facility] Work Phone: Comment on above: Ordered: 06/11/2024 Payers Date Payer Category Payer Private Health Insurance [employer] [id number] 2024 Unknown [id number] 2020 [facility] (unspecified) [id number] 1991 Unknown [id number] 2.16.840.1.122518.3.579.2. 593 1991 Unknown [id number] 2.16.840.1.197436.3.579.2. 593 1991 Unknown [id number] 2.16.840.1.458090.3.579.2. 593 1991 Unknown [id number] 2.16.840.1.118524.3.579.2. 593 1991 Unknown [id number] 2.16.840.1.857213.3.579.2. 593 1991 Unknown [id number] 2.16.840.1.551951.3.579.2. 593 1991 Unknown [id number] 2.16.840.1.959449.3.579.2. 593 1991 Unknown [id number] 2.16.840.1.566028.3.579.2. 593 1991 Unknown [id number] 2.16.840.1.759124.3.579.2. 593 1991 Unknown [id number] 2.16.840.1.516441.3.579.2. 593 1991 Unknown [id number] 2.16.840.1.094926.3.579.2. 593 1991 Unknown [id number] 2.16.840.1.335955.3.579.2. 593 1991 Unknown [id number] 2.16.840.1.049692.3.579.2. 593 1991 Unknown [id number] 2.16.840.1.767736.3.579.2. 593 1991 Unknown [id number] 2.16.840.1.900486.3.579.2. 593 1991 Unknown [id number] 2.16.840.1.214142.3.579.2. 593 1991 Unknown [id number] 2.16.840.1.853920.3.579.2. 593 1991 Unknown [id number] 2.16.840.1.187406.3.579.2. 593 1991 Unknown [id number] 2.16.840.1.337944.3.579.2. 593 1991 Unknown [id number] 2.16.840.1.141987.3.579.2. 593 1991 Unknown [id number] 2.16.840.1.352034.3.579.2. 593 1991 Unknown [id number] 2.16.840.1.457728.3.579.2. 1259 1991 Unknown [id number] 2.16.840.1.000807.3.579.2. 1259 1991 Unknown [id number] 2.16.840.1.217675.3.579.2. 9 1991 Unknown [id number] 2.16.840.1.760853.3.579.2. 1259 1991 Unknown [id number] 2.16.840.1.278263.3.579.2. 9 1991 Unknown [id number] 2.16.840.1.460076.3.579.2. 9 1991 Unknown [id number] 2.16.840.1.359286.3.579.2. 1259 1991 Unknown [id number] 2.16.840.1.403749.3.579.2. 1259 1959 Private Health Insurance [id number] Social History Date Type Detail Facility Start: 02-08-2023 Tobacco smoking stat [facility] Never smoked tobacco [facility] Start: 02-08-2023 Tobacco use and exposure Smokeless t obacco non-user [facility] Start: 04-05-2024 End: 08-29-2024 Alcoholic beverage intake Lifetime non-drinker (finding) [facility] Start: 07-19-2023 End: 01-02-2024 History of Social function [facility] Start: 07-19-2023 End: 01-02-2024 Tobacco use panel [facility] Start: 02-18-2024 [facility] Start: 1990 Sex [facility] at Female [facility] Start: 02-06-2023 Gender identity Identifies as female gender (finding) [facility] Start: 02-06-2023 Sexual orientation Heterosexual (fin ding) [facility] Medical Equipment Procedure Code Equipment Code Equipment Origin al Text Equipment Identifier Dates 1 strip by In Vi tro route Daily Use in the morning prior to breakfast, 1 hour after each meal for a total of 4times daily. [id number] Start: 08-09-2024 End: 09-08-2024 1 each by In Vit ro route Daily Use to check FSBS four times daily [id number] Start: 08-09-2024 End: 09-08-2024 Goals Date Patient Goal Desired Activity /State Personal health goal Clinical Notes 06-04-2022 to 08-29-2024 Tere Hu, [facility] - 08/29/2024 3:20 PM ESTSusan Spitler, PROGRAM PROPOSALS COORDINATOR - 08/09/2024 9:10 AM ESTSusan Spitler, PROGRAM PROPOSALS COORDINATOR - 07/12/2024 9:50 AM ESTSusan Spitler, [facility] - 06/11/2024 3:50 PM EST Note Date [...] Grandmother Isis Cannon Hypertension Paternal Grandmother [facility]is [facility] SURGICAL HISTORY Past Surgical History: Procedure Laterality [...] nursing note reviewed. Exam conducted with a it security specialist present. Vitals: Estimated body mass index is [...] Lee Rand DO documented in this encounter [facility] 08-09-2024 History of Presen t illness Narrative [...] nursing note reviewed. Exam conducted with a it security specialist present. Vitals: Estimated body mass index is [...] Lee Rand DO documented in this encounter [facility] 07-12-2024 History of Presen t illness Narrative [...] Grandfather Boshellie Albright Cancer Paternal Grandmother Isis Davis Arthritis [...] nursing note reviewed. Exam conducted with a it security specialist present. Vitals: Estimated body mass index is [...] with patient and she is scheduled with [facility] for confirmation of complete placenta previa. Patient to return to clinic in 4 weeks for routine OB. Documented by Miranda Parsons LPN on behalf of: Lee Rand DO documented in this encounter [facility] 06-11-2024 History of Presen t illness Narrative [...] Known Problems Brother Diabetes Maternal Grandfather Bo Fcogoldy Cancer Paternal Grandmother Isis Cannon Arthritis Paternal [...] nursing note reviewed. Exam conducted with a it security specialist present. Vitals: Estimated body mass index is [...] Lee Rand DO documented in this encounter [facility] 05-08-2024 History of Presen t illness Narrative [...] Grandfather Bo Albright Cancer Paternal Grandmother December [facility] Arthritis Paternal Grandmother December Hypertension Paternal Grandmother [...] nursing note reviewed. Exam conducted with a it security specialist present. Vitals: Estimated body mass index is 27.76 kg/m as calculated from the following: Height as of 24: 5' 6 . Weight as of this [...] or undercooked meat, and stay away from [facility]. Patient has been consulted regarding any further do's and don'ts of . Patient voiced understanding and all questions and concerns were answered. Orders Placed This Encounter Procedures POCT urinalysis dipstick manually resulted Follow Up: Patient is to return in 4 weeks for routine OB appointment. Documented by Tere Hu LPN on behalf of: Lee Rand DO documented in this encounter [facility] 04-05-2024 History of Presen t illness Narrative [...] Grandfather Bo Albright Cancer Paternal Grandmother December Davis Arthritis Paternal Grandmother Decemberrishabh Hypertension Paternal Grandmother Decemberrishabh Social History Tobacco Use Smoking status: Never [...] or undercooked meat, and stay away from [facility]. Patient has also been advised to not [...] by: Janis Hylton documented in this encounter [facility] 06-04-2022 Note OPERATIVE NOTE OPERATION DATE: 06/04/2022 PROCEDURE: Primary low transverse section. PREOPERATIVE DIAGNOSIS: 1. Intrauterine at 37 5/7 weeks. 2. Breech presentation. POSTOPERATIVE DIAGNOSIS: 1. Intrauterine at 37 5/7 weeks. 2. Breech presentation. 3. 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 SURGEON: Lee Rand FREIGHT RATE ANALYST: SCARLET Albert URINE OUTPUT: Yellow and clear. [...] the Recovery Room in stable condition. [facility] Evaluation note Diagnosis 13 weeks gestation of Second trimester state, incidental documented in this encounter [facility]* Diagnosis Second trimester state, incidental 18 weeks gestation of Vaginal discharge Leukorrhea, not specified as infective STD exposure Screening, , for anatomic survey Encounter for anatomic survey documented in this encounter [facility]* Diagnosis Missed menses Encounter for [...] in third trimester documented in this encounter [facility] Summary Purpose Family History No Family History Records FoundNo Family History Records Found Advance Directives No Advanced Directives Records FoundNo Advanced Directives Records Found Additional Source Comments INFORMATION SOURCE (unrecogn ized section and content) DATE CREATED AUTHOR 06/14/2022 [facility] DATE CREATED AUTHOR AUTHOR'S ORGANIZ ATION 09/01/2024 [facility] EPIC Care Teams (unrecognized sec tion and content) Radiotelegraph Operator Relationship Specialty Start Date End Date Fito Cueto MD [address] [place] [id number] PCP - General Family Medicine 02/09/23 Radiotelegraph Operator Relationship Specialty Start Date End Date Fito Cueto MD [address] [place] [phone] PCP - General Family Medicine 02/09/23 Radiotelegraph Operator Relationship Specialty Start Date End Date Fito Cueto MD [address] [place] [phone] PCP - General Family Medicine 02/09/23 Radiotelegraph Operator Relationship Specialty Start Date End Date Fito Cueto MD [address] [place] [id number] PCP - General Family Medicine 02/09/23 Radiotelegraph Operator Relationship Specialty Start Date End Date Fito Cueto MD [address] [place] [id number] PCP - General Family Medicine 02/09/23 Radiotelegraph Operator Relationship Specialty Start Date End Date Fito Cueto MD [address] [place] [phone] PCP - General Family Medicine 02/09/23 Radiotelegraph Operator Relationship Specialty Start Date End Date Fito Cueto MD [address] [place] [id number] PCP - General Family Medicine 02/09/23 Radiotelegraph Operator Relationship Specialty Start Date End Date Fito Cueto MD [address] [place] [id number] PCP - General Family Medicine 02/09/23 Radiotelegraph Operator Relationship Specialty Start Date End Date Fito Cueto MD [address] [place] [id number] PCP - General Family Medicine 02/09/23 Radiotelegraph Operator Relationship Specialty Start Date End Date Fito Cueto MD [address] [place] [id number] PCP - General Family Medicine 02/09/23 Reason [...] BE BASED ON THE PRIMARY CLINICAL RECORDS. [employer] [facility]. provides no warranty or guarantee of the accuracy or completeness of information in this document.
[2024-09-07 18:06] VITALS: BP 108/70; PULSE 88
== END 2024-09-07 18:30 | disposition home or self-care (01) ==
LOC: FBCO 00:16 → FBC 17:52
PROVIDERS: Visit Provider Obstetrics & Gynecology
DX: O24.419 Gestational diabetes mellitus in pregnancy, unspecified control (principal)
CPT/HCPCS: 59025

== ENCOUNTER 2024-09-11 00:53 | Outpatient (OUT) | payer OTHER, SELFPAY ==
--- OUTSIDE RECORDS SUMMARY | 2024-09-11 00:57 | XMS_ITS | CCD ---
Author Organization [facility] Care Team Providers Care School Crossing Guard Name Role Phone KEYONA, DR LAWRENCE Admitting [...] Unavail able KEYONA, DR LAWRENCE Admitting Unavailable KEYNOA, DR LAWRENCE Attending Unavailable GIOVANA, DR AVI [...] Unavail able KEYONA, DR LAWRENCE Consulting Unavailable EKYONA, DR LAWRENCE Admitting Unavailable KEYONA, DR LAWRENCE [...] Attending Unavailable TELLY, DR PENNINGTON Consulting Unavailable DOTHAN, DR RIGO [place] Consulting Unavailable KEYONA, DR LAWRENCE Consulting Unavailable Bandar Cueto MDishna Primary Care Provider KEYONA, LEE Attending Unavailable KEYONA, LEE Attending Unavailable KEYONA, LEE Attending Unavailable KEYONA, LEE Attending Unavailable KEYONA, LEE Attending Unavailable KEYONA, LEE Attending Unavailable KEYONA, LEE Attending Unavailable Allergies Allergy Classification Reported Allergen(s) Allergy Type Date of Onset Reaction(s) Facility (2 sources) Acetaminophen / HYDROcodone Drug Allergy [facility] Repository Medications Current Medications Medication Drug [...] Facility OB BPP W NON-STRESS on 09-05-2024 [place] [address] Ultrasound Report Signed Patient: ANNA LAW MR#: [id number] : 1990 Acct:[id number] Age/Sex: 34 / F ADM Date: 09/04/24 Loc: US Attending Dr: Lee Rand D.O. Ordering Physician: Lee Rand D.O. Date of Service: 09/04/24 Procedure(s): US OB BPP w non-stress Accession Number(s): [id number] cc: Lee Rand D.O.; Physician,Non-Staff M.Herbert The [address] [address] Patient Name: ANNA LAW MRN: [id number] date: 1990 Sex: F Assigned Patient Location: [facility] Current Patient Location: Accession/Order Number: [id number] Exam Date: 09/04/2024 18:52 Report Date: 09/05/2024 [...] Signed By: 09/05/24 0555 DD/ 0553 TD/TT: Cordwood Cutter Helper: [facility] Radiology, Radiologist, MD - 09/05/2024 [place] [address] Ultrasound Report Signed Patient: ANNA LAW MR#: [id number] : 1990 Acct:[id number] Age/Sex: 34 / F ADM Date: 09/04/24 Loc: US Attending Dr: Lee Rand D.O. Ordering Physician: Lee Rand D.O. Date of Service: 09/04/24 Procedure(s): US OB BPP w non-stress Accession Number(s): [id number] cc: Lee Rand D.O.; Physician,Non-Staff [place] The [place] [id number] Patient Name: ANNA LAW MRN: [facility]:[id number] date: 1990 Sex: F Assigned Patient Location: [facility] Current Patient Location: Accession/Order Number: [id number] Exam Date: 09/04/2024 18:52 Report Date: 09/05/2024 [...] M.D. Signed By: 09/05/2455 DD/ 2 TD/TT: Cordwood Cutter Helper: [facility] Radiology Study observation (narrative) [facility] US OB BPP W NON-STRESS Ordered By: Radiologist Radiology on 09-05-2024 [facility] Work Phone: Urinalysis macro (dipstick) panel (U)on 08-29-2024 Bilirubin, UA Negative Negative - 4(70) +++ mg/dL [facility] Blood, UA Positive Negative - 50 Yang/mcL [facility] Comment on above: trace-intact Clarity, UA Clear [facility] Color, UA Yellow [facility] Glucose, UA Negative Negative - 2000(110) ++++ mg/dL [facility] Interpretation and review of laboratory results Abnormal [facility] Ketones, UA Positive Negative - 160(16) ++++ mg/dL [facility] Comment on above: 40 Leukocytes, UA Trace Negative - 500+++ Derik/mcL [facility] Nitrite, UA Negative Negative - Positive [facility] pH, UA 5.5 5 - 9 [facility] Protein, UA Trace Negative - 2000(20) ++++ mg/dL [facility] Spec Grav, UA 1.025 1 - 1.03 [facility] Urobilinogen, UA 1.0 0.2 - 12 mg/dL [facility] GLUCOSE TOLERANCE 3 HOURon 0 07-28-2024 GLUCOSE TOLERANCE 3 HOUR High mg/dL [facility] Comment on above: GLU FAST 87 (<95) Co l: 07/28/24 0638 GLU 1HR 199H (<180) Col: 07/28/24 0739 GLU 2HR 173H (<155) Col: 07/28/24 0839 GLU 3HR 94 (<140) Col: 07/28/24 0939 Interpretation and review of laboratory results Abnormal [facility] GLUCOSE 1 HOURon 07-21-2024 Glucose [Mass/Vol] 154 mg/dL High NINF - 13 0 mg/dL [facility] Interpretation and review of laboratory results Abnormal [facility] macro (dipstick) panel (U)on 07-12-2024 Bilirubin, UA Negative Negative - 4(70) +++ mg/dL [facility] Blood, UA Negative Negative - 50 Yang/mcL [facility] Clarity, UA Clear [facility] Color, UA Yellow [facility] Glucose, UA Negative Negative - 2000(110) ++++ mg/dL [facility] Interpretation and review of laboratory results Normal [facility] Ketones, UA Negative Negative - 160(16) ++++ mg/dL [facility] Leukocytes, UA Negative Negative - 500+++ Derik/mcL [facility] Nitrite, UA Negative Negative - Positive [facility] pH, UA 7 5 - 9 [facility] Protein, UA Negative Negative - 2000(20) ++++ mg/dL [facility] Spec Grav, UA 1.02 1 - 1.03 [facility] Urobilinogen, UA 1.0 0.2 - 12 mg/dL [facility] AFP, SERUM, OPEN SPINA BIFID Aon 07-04-2024 AFP MOM 1.60 . [facility] AFP VALUE 91.9 ng/mL . [facility] COMMENT: Comment . [facility] Comment on above: Sonia Sullivan , Ph.D., [facility] Director References: Available Upon Request. Multiples Of Median Cutoffs For AFP Elevations Bhandari 2.5 Black 2.8 IDD 2.0 Twins 4.5 Abbreviation Definitions IDD - Insulin Dep Diabetes OSBR - Open Spina Bifida Risk For further inquiries contact [employer] at [phone]. This test was developed and its performance characteristics determined by [employer]. It has not been cleared or approved by the Food and Drug Administration. Performed at: [facility] [address] [place], [place] [id number] Jawbone Puller: [facility], Phone: [phone] GEST. AGE ON COLLECTION DATE 21.0 . weeks [facility] GESTAT. AGE BASED ON LMP . [facility] Comment on above: Recalculations are n ot recommended when gestational dating by LMP and ultrasound are within 10 days. INSULIN DEP DIABETES No . [facility] INTERPRETATION Comment . [facility] Comment on above: Interpretation: Scre en [...] Customer Services to discuss available options. The [employer] recommends amniocentesis be offered to women age 35 and older. [age] [facility] MULTIPLE GESTATION No . [facility] OSBR RISK 1 IN 2100 . [facility] RACE . [facility] RESULTS Report . [facility] TEST RESULTS: Negative . [facility] WEIGHT 177 . lbs [facility] N LMP [id number] 2 18 N 1 Y 177 [address] N White/ [facility] RECURRENT VAGINITIS (HTRX)on 06-13-2024 ATOPOBIUM VAGINAE 30.301 Abnormal [facility] ATOPOBIUM VAGINAE Detected Abnormal [facility] BVAB 2,3 (BACTERIAL VAGINOSIS ASSOCIATED BACTERIA 2, 3); MOBILUNCUS SPP 0 [facility] BVAB 2,3 (BACTERIAL VAGINOSIS ASSOCIATED BACTERIA 2, 3); MOBILUNCUS SPP Not detected [facility] KAITLYNN ALBICANS, PARAPSILOSIS, TROPICALIS 0 [facility] KAITLYNN ALBICANS, PARAPSILOSIS, TROPICALIS Not detected [facility] KAITLYNN GLABRATA 0 [facility] KAITLYNN GLABRATA Not detected [facility] KAITLYNN KRUSEI 0 [facility] KAITLYNN KRUSEI Not detected [facility] CHLAMYDIA TRACHOMATIS 0 [facility] CHLAMYDIA TRACHOMATIS Not detected [facility] GARDNERELLA VAGINALIS 21.1 Abnormal [facility] GARDNERELLA VAGINALIS Detected Abnormal [facility] Interpretation and review of laboratory results Abnormal [facility] MEGASPHAERA (TYPES 1, 2) 0 [facility] MEGASPHAERA (TYPES 1, 2) Not detected [facility] MYCOPLASMA GENITALIUM 0 [facility] MYCOPLASMA GENITALIUM Not detected [facility] NEISSERIA GONORRHOEAE 0 [facility] NEISSERIA GONORRHOEAE Not detected [facility] TRICHOMONAS VAGINALIS 0 [facility] TRICHOMONAS VAGINALIS Not detected [facility] Urinalysis macro (dipstick) panel (U)on 06-11-2024 Bilirubin, UA Negative Negative - 4(70) +++ mg/dL [facility] Blood, UA Negative Negative - 50 Yang/mcL [facility] Clarity, UA Clear [facility] Color, UA Yellow [facility] Glucose, UA Negative Negative - 1999(110) ++++ mg/dL [facility] Interpretation and review of laboratory results Normal [facility] Ketones, UA Negative Negative - 160(16) ++++ mg/dL [facility] Leukocytes, UA Negative Negative - 500+++ Derik/mcL [facility] Nitrite, UA Negative Negative - Positive [facility] pH, UA 5.5 5 - 9 [facility] Protein, UA Negative Negative - 1999(20) ++++ mg/dL [facility] Spec Grav, UA 1.02 1 - 1.03 [facility] Urobilinogen, UA 1.0 0.2 - 12 mg/dL [facility] Urinalysis macro (dipstick) panel (U)on 05-08-2024 Bilirubin, UA Negative Negative - 4(70) +++ mg/dL [facility] Blood, UA Positive Negative - 50 Yang/mcL [facility] Comment on above: trace-intact Clarity, UA Clear [facility] Color, UA Yellow [facility] Glucose, UA Negative Negative - 1999(110) ++++ mg/dL [facility] Interpretation and review of laboratory results Abnormal [facility] Ketones, UA Negative Negative - 160(16) ++++ mg/dL [facility] Leukocytes, UA Negative Negative - 500+++ Derik/mcL [facility] Nitrite, UA Negative Negative - Positive [facility] pH, UA 6 5 - 9 [facility] Protein, UA Negative Negative - 1999(20) ++++ mg/dL [facility] Spec Grav, UA 1.025 1 - 1.03 [facility] Urobilinogen, UA 0.2 0.2 - 12 mg/dL [facility] ALL CBC WITH AUTO DIFFon BASOPHILS ABSOLUTE AUTO 0.0 [facility] Basophils/100 WBC (Bld) 0.4 % 0.2 - 2.0 % [facility] Eosinophils/100 WBC (Bld) 0.9 % 0.9 - 7.0 % [facility] Erythrocyte distribution width (RBC) [Ratio] 11.9 % 11.0 - 15.0 % [facility] Hematocrit (Bld) [Volume fraction] 37.1 % 36.0 - 48.0 % [facility] Hemoglobin (Bld) [Mass/Vol] 12.6 g/dL 12.0 - 16.0 g/dL [facility] IMMATURE GRANULOCYTES ABS AUTO 0.03 [facility] Immature granulocytes/100 WBC (Bld) 0.4 % 0.0 - 0.5 % [facility] Interpretation and review of laboratory results Abnormal [facility] LYMPHOCYTES ABSOLUTE AUTO 1.7 [facility] Lymphocytes/100 WBC (Bld) 21.2 % 20.5 - 60.0 % [facility] MCH (RBC) [Entitic mass] 31.7 pg 26.7 - 34.0 pg [facility] MCHC (RBC) [Mass/Vol] 34.0 g/dL 29.9 - 35.2 g/dL [facility] MCV (RBC) [Entitic vol] 93.5 fL 81.0 - 99.0 fL [facility] MONOCYTES ABSOLUTE AUTO 0.6 [facility] Monocytes/100 WBC (Bld) 6.8 % 1.7 - 12.0 % [facility] NEUTROPHILS ABSOLUTE AUTO 5.7 [facility] Neutrophils/100 WBC (Bld) 70.3 % 43.0 - 75.0 % [facility] Platelet mean volume (Bld) [Entitic vol] 9.8 fL 9.5 - 13.5 fL [facility]H EO # 0.1 [facility] PLT 219 [facility] TB RBC 3.97 Low [facility] TB WBC 8.1 [facility] HCG ( test) Ql (U)o n 04-05-2024 Interpretation and review of laboratory results Abnormal [facility] Preg Test, Ur Positive [facility] Urinalysis macro (dipstick) panel (U)on 04-05-2024 Bilirubin, UA Negative Negative - 4(70) +++ mg/dL [facility] Blood, UA Positive Negative - 50 Yang/mcL [facility] Comment on above: trace intact Clarity, UA Clear [facility] Color, UA Yellow [facility] Glucose, UA Negative Negative - 1999(110) ++++ mg/dL [facility] Interpretation and review of laboratory results Abnormal [facility] Ketones, UA Negative Negative - 160(16) ++++ mg/dL [facility] Leukocytes, UA Trace Negative - 500+++ Derik/mcL [facility] Nitrite, UA Negative Negative - Positive [facility] pH, UA 6.5 5 - 9 [facility] Protein, UA Negative Negative - 1999(20) ++++ mg/dL [facility] Spec Grav, UA 1.015 1 - 1.03 [facility] Urobilinogen, UA 0.2 0.2 - 12 mg/dL [facility] CBC AUTO DIFFon 06-05-2022 BASO # 0.0 103/ul Normal 0.0-0.1 [facility] Comment on above: Performed By: #### C BC #### [facility] [address] [place] [address] Dr. Sandi Michelle Basophils/100 WBC (Bld) 0.2 % Normal 0.2-2.0 [facility] Comment on above: Performed By: #### C BC #### [facility] [address] [place] [address] Dr. Sandi Michelle EO # 0.0 103/ul Normal 0.0-0.7 [facility] Comment on above: Performed By: #### C BC #### [facility] [address] [place] [address] Dr. Sandi Michelle Eosinophils/100 WBC (Bld) 0.2 % Critically low 0.9-7.0 [facility] Comment on above: Performed By: #### C BC #### [facility] [address] [place] [address] Dr. Sandi Michelle Erythrocyte distribution width (RBC) [Ratio] 14.3 % Normal 11.0-15.0 [facility] Comment on above: Performed By: #### C BC #### [facility] [address] [address] [address] Sandi Michelle Hematocrit (Bld) [Volume fraction] 27.3 % Critically low 36.0-48.0 [facility] Comment on above: Performed By: #### C BC #### [facility] [address] [place] [address] Dr. Sandi Michelle Hemoglobin (Bld) [Mass/Vol] 9.3 g/dL Critically low 12.0-16.0 [facility] Comment on above: Result Comment: DELI VERY Performed By: #### C BC #### [facility] [address] [place] [address] Dr. Sandi Michelle IG # 0.14 10e3/ul Critically high 0.00-0.03 [facility] Comment on above: Performed By: #### C BC #### [facility] [address] [place] [address] Dr. Sandi Michelle IG % 1.1 % Critically high 0.0-0.5 [facility] Comment on above: Performed By: #### C BC #### [facility] [address] [place] [address] Dr. Sandi Michelle LYMPH # 1.6 103/ul Normal 1.2-3.8 [facility] Comment on above: Performed By: #### C BC #### [facility] [address] [place] [address] Dr. Sandi Michelle Lymphocytes/100 WBC (Bld) 12.1 % Critically low 20.5-60.0 [facility] Comment on above: Performed By: #### C BC #### [facility] [address] [place] [address] Dr. Sandi Michelle MANUAL DIFF REQ NO Normal [facility] Comment on above: Performed By: #### C BC #### [facility] [address] [place] [address] Dr. Sandi Michelle MCH (RBC) [Entitic mass] 31.8 pg Normal 26.7-34.0 [facility] Comment on above: Performed By: #### C BC #### [facility] [address] [address] [address] Sandi Michelle MCHC (RBC) [Mass/Vol] 34.1 g/dL Normal 29.9-35.2 [facility] Comment on above: Performed By: #### C BC #### [facility] [address] [address] [address] Sandi Michelle MCV (RBC) [Entitic vol] 93.5 fL Normal 81.0-99.0 [facility] Comment on above: Performed By: #### C BC #### [facility] [address] [address] [address] Sandi Michelle MONO # 0.9 103/ul Critically high 0.3-0.8 [facility] Comment on above: Performed By: #### C BC #### [facility] [address] [address] [address] Sandi Michelle Monocytes/100 WBC (Bld) 6.8 % Normal 1.7-12.0 [facility] Comment on above: Performed By: #### C BC #### [facility] [address] [address] [address] Sandi Michelle NEUT # 10.3 103/ul Critically high 1.4-6.5 [facility] Comment on above: Performed By: #### C BC #### [facility] [address] [address] [address] Sandi Michelle Neutrophils/100 WBC (Bld) 79.6 % Critically high 43.0-75.0 [facility] Comment on above: Performed By: #### C BC #### [facility] [id number] Sandi Michelle Platelet mean volume (Bld) [Entitic vol] 9.8 fL Normal 9.5-13.5 [facility] Comment on above: Performed By: #### C BC #### [facility] [address] [address] [address] Sandi Michelle PLT 138 103/ul Critically low 150-450 [facility] Comment on above: Performed By: #### C BC #### [facility] [address] [address] [address] Sandi Michelle RBC 2.92 106/ul Critically low 4.20-5.40 [facility] Comment on above: Performed By: #### C BC #### [facility] [address] [address] [address] Sandi Michelle WBC 12.9 103/ul Critically high 4.0-11.0 [facility] Comment on above: Performed By: #### C BC #### [facility] [address] [address] [address] Sandi Michelle CBC AUTO DIFFon 06-04-2022 BASO # 0.0 103/ul Normal 0.0-0.1 [facility] Comment on above: Performed By: #### C BC #### [facility] [address] [place] [address] Dr. Sandi Michelle Basophils/100 WBC (Bld) 0.3 % Normal 0.2-2.0 [facility] Comment on above: Performed By: #### C BC #### [facility] [address] [place] [address] Dr. Sandi Michelle EO # 0.0 103/ul Normal 0.0-0.7 [facility] Comment on above: Performed By: #### C BC #### [facility] [address] [place] [address] Dr. Sandi Michelle Eosinophils/100 WBC (Bld) 0.1 % Critically low 0.9-7.0 [facility] Comment on above: Performed By: #### C BC #### [facility] [address] [place] [address] Dr. Sandi Michelle Erythrocyte distribution width (RBC) [Ratio] 14.4 % Normal 11.0-15.0 [facility] Comment on above: Performed By: #### C BC #### [facility] [address] [place] [address] Dr. Sandi Michelle Hematocrit (Bld) [Volume fraction] 37.2 % Normal 36.0-48.0 [facility] Comment on above: Performed By: #### C BC #### [facility] [address] [address] [address] Sandi Michelle Hemoglobin (Bld) [Mass/Vol] 12.9 g/dL Normal 12.0-16.0 [facility] Comment on above: Performed By: #### C BC #### [facility] [address] [address] [address] Sandi Michelle IG # 0.23 10e3/ul Critically high 0.00-0.03 [facility] Comment on above: Performed By: #### C BC #### [facility] [address] [address] [address] Sandi Michelle IG % 1.6 % Critically high 0.0-0.5 [facility] Comment on above: Performed By: #### C BC #### [facility] [address] [place] [address] Dr. Sandi Michelle LYMPH # 2.3 103/ul Normal 1.2-3.8 [facility] Comment on above: Performed By: #### C BC #### [facility] [address] [place] [address] Dr. Sandi Michelle Lymphocytes/100 WBC (Bld) 16.0 % Critically low 20.5-60.0 [facility] Comment on above: Performed By: #### C BC #### [facility] [address] [place] [address] Dr. Sandi Michelle MANUAL DIFF REQ NO Normal [facility] Comment on above: Performed By: #### C BC #### [facility] [address] [address] [address] Sandi Michelle MCH (RBC) [Entitic mass] 32.3 pg Normal 26.7-34.0 [facility] Comment on above: Performed By: #### C BC #### [facility] [address] [place] [address] Dr. Sandi Michelle MCHC (RBC) [Mass/Vol] 34.7 g/dL Normal 29.9-35.2 [facility] Comment on above: Performed By: #### C BC #### [facility] [address] [place] [address] Dr. Sandi Michelle MCV (RBC) [Entitic vol] 93.0 fL Normal 81.0-99.0 [facility] Comment on above: Performed By: #### C BC #### [facility] [address] [place] [address] Dr. Sandi Michelle MONO # 0.8 103/ul Normal 0.3-0.8 [facility] Comment on above: Performed By: #### C BC #### [facility] [address] [place] [address] Dr. Sandi Michelle Monocytes/100 WBC (Bld) 5.8 % Normal 1.7-12.0 [facility] Comment on above: Performed By: #### C BC #### [facility] [address] [place] [address] Dr. Sandi Michelle NEUT # 10.7 103/ul Critically high 1.4-6.5 [facility] Comment on above: Performed By: #### C BC #### [facility] [address] [place] [address] Dr. Sandi Michelle Neutrophils/100 WBC (Bld) 76.2 % Critically high 43.0-75.0 [facility] Comment on above: Performed By: #### C BC #### [facility] [address] [place] [address] Dr. Sandi Michelle Platelet mean volume (Bld) [Entitic vol] 10.9 fL Normal 9.5-13.5 [facility] Comment on above: Performed By: #### C BC #### [facility] [address] [place] [address] Dr. Sandi Michelle PLT 194 103/ul Normal 150-450 [facility] Comment on above: Performed By: #### C BC #### [facility] [address] [place] [address] Dr. Sandi Michelle RBC 4.00 106/ul Critically low 4.20-5.40 [facility] Comment on above: Performed By: #### C BC #### [facility] [address] [place] [address] Dr. Sandi Michelle WBC 14.0 103/ul Critically high 4.0-11.0 [facility] Comment on above: Performed By: #### C BC #### [facility] [address] [place], [place] [address] Dr. Sandi Michelle [facility] SARS-CoV-2 (COVID-19) RNA ALETHEA+probe Ql (Unsp spec) Not detected Normal NOT DETECTED [facility] Comment on above: Result Comment: When [...] for this test is supported by the Partnership Marketing Manager of Health and Human Service's declaration that [...] be used). Performed By: #### C VDTBH ####[facility] [address] [place], [place] [address]Xf. Sandi Michelle DRUG SCREEN RAPID (URINE)on 06-04-2022 AMP Negative Normal NEGATIVE [facility] Comment on above: Performed By: #### D RUGRPD ####[facility] [address] [place], [place] [address]Nh. Sandi Michelle BAR Negative Normal NEGATIVE [facility] Comment on above: Performed By: #### D RUGRPD ####[facility] [address] [place], [place] [address]Lq. Sandi Michelle BUP Negative Normal NEGATIVE [facility] Comment on above: Performed By: #### D RUGRPD ####[facility] [address] [place] [id number][address] Sandi Michelle BZO Negative Normal NEGATIVE [facility] Comment on above: Performed By: #### D RUGRPD ####[facility] [address] [place] [id number] Sandi Michelle NINO Negative Normal NEGATIVE [facility] Comment on above: Performed By: #### D RUGRPD ####[facility] [address] [place], [place] [id number]. Sandi Michelle CUT-OFFS SEE BELOW Normal [facility] Comment on above: Result Comment: AMP (Amphetamine): 500ng/mL, BAR (Barbituates): 200 ng/mL, BZO (Benzodiazepines): 150 ng/mL, BUP (Buprenorphine): 10 ng/mL, NINO (Cocaine): 150 ng/mL, mAMP (Methamphetamine): 500 ng/mL, MTD (Methadone): 200 ng/mL, OPI (Opiates): 100 ng/mL, OXY (Oxycodone): 100 ng/mL, PCP (Phencyclidine): 25 ng/mL, PPX (Propoxyphene): 300 ng/mL, THC (Cannabinoids): 50 ng/mL, TCA (Trycyclic Antidepressants): 300 ng/mL Performed By: #### D RUGRPD ####[facility] [address] [place], [place] [address]Dr. Sandi Michelle DRUG CUT HEADER DRUG CLASS TEST SYSTEM CUT-OFF CONCENTRATIONS ARE FOLLOWS: Normal [facility] Comment on above: Performed By: #### D RUGRPD ####[facility] [address]sp[address] [place], [place] [address]Dr. Sandi Michelle mAMP Negative Normal NEGATIVE [facility] Comment on above: Performed By: #### D RUGRPD ####[facility] [address] [place] [id number]. Sandi Michelle MTD Negative Normal NEGATIVE [facility] Comment on above: Performed By: #### D RUGRPD ####[facility] [address] [place] [address]Dr. Sandi Michelle OPI Negative Normal NEGATIVE [facility] Comment on above: Performed By: #### D RUGRPD ####[facility] [address] [place] [address]Dr. Sandi Michelle OXY Negative Normal NEGATIVE [facility] Comment on above: Performed By: #### D RUGRPD ####[facility] [address] [place] [id number]. Sandi Michelle PCP Negative Normal NEGATIVE [facility] Comment on above: Performed By: #### D RUGRPD ####[facility] [address] [place] [address]Dr. Sandi Michelle PPX Negative Normal NEGATIVE [facility] Comment on above: Performed By: #### D RUGRPD ####[facility] [address] [place] [address]Dr. Sandi Michelle TCA Negative Normal NEGATIVE [facility] Comment on above: Performed By: #### D RUGRPD ####[facility] [address] [place] [address]Dr. Sandi Michelle THC Negative Normal NEGATIVE [facility] Comment on above: Performed By: #### D RUGRPD ####[facility] R[address] [place], [place] [address]Dr. Sandi Michelle TYPE AND SCREENon 06-04-2022 TYPE AND SCREEN Negative Normal [facility] Comment on above: Performed By: #### T NS ####[facility] Qassajut[address] [place], [place] [address]Dr. Sandi Michelle US PREG BIOPHY W NON [...] RIGO FISCHER Date: 2022-05-30 08:30 Normal [facility] GROUP B STREP CULTUREon S. agalactiae Ag Ql (Unsp spec) Culture Observations: NEGATIVE FOR GROUP B STREPTOCOCCUS. Normal [facility] Comment on above: Performed By: #### G BSCX ####[facility] [address] [place], [place] [address]DwDen Michelle US PREG BIOPHY W NON STRESSo [...] by: RIGO FISCHER Date: 2022-05-23 09:41 Normal [facility] US PREG BIOPHY W NON STRESSo [...] by: RIGO FISCHER Date: 2022-05-16 16:10 Normal [facility] US PREG GROWTHon 05-11-2022 US PREG GROWTH EXAMINATION: US PREG GROWTH, US PREG CERVICAL LENGTH HISTORY: Excessive growth affecting management of mother COMPARISON: Ultrasound growth 04/27/2022 FINDINGS: Heart Rate: 137.8 bpm (accession [id number]), 167.3 bpm (accession [id number]) Number: 1.0 Position: BREECH Amniotic Fluid Volume: [...] by: TIFF BAUMANN Date: 2022-05-11 19:19 Normal [facility] US PREG GROWTHon 04-27-2022 US PREG [...] by: TIFF BAUMANN Date: 2022-04-27 20:51 Normal [facility] GLUCOSE - 1HRon 03-15-2022 Glucose [Mass/Vol] 137 mg/dL Critically high 74-106 T [facility] Comment on above: Performed By: #### C BC #### [facility] [address] [place] [address] Dr. Sandi Michelle HEMOGRAM AND PLATELon 2021 Hematocrit (Bld) [Volume fraction] 34.9 % Critically low 36.0-48.0 [facility] Comment on above: Performed By: #### C BC #### [facility] [address] [place] [address] Dr. Sandi Michelle Hemoglobin (Bld) [Mass/Vol] 11.5 g/dL Critically low 12.0-16.0 [facility] Comment on above: Performed By: #### C BC #### [facility] [address] [place] [address] Dr. Sandi Michelle MCH (RBC) [Entitic mass] 31.8 pg Normal 26.7-34.0 [facility] Comment on above: Performed By: #### C BC #### [facility] [address] [place] [address] Dr. Sandi Michelle MCHC (RBC) [Mass/Vol] 33.0 g/dL Normal 29.9-35.2 [facility] Comment on above: Performed By: #### C BC #### [facility] [address] [place] [address] Dr. Sandi Michelle MCV (RBC) [Entitic vol] 96.4 fL Normal 81.0-99.0 [facility] Comment on above: Performed By: #### C BC #### [facility] [address] [place] [address] Dr. Sandi Michelle PLT 225 103/ul Normal 150-450 [facility] Comment on above: Performed By: #### C BC #### [facility] [address] [place] [address] Dr. Sandi Michelle RBC 3.62 106/ul Critically low 4.20-5.40 [facility] Comment on above: Performed By: #### C BC #### [facility] [address] [address] [address] Sandi Michelle WBC 12.9 103/ul Critically high 4.0-11.0 [facility] Comment on above: Performed By: #### C BC #### [facility] [id number] Sandi Michelle CHLAMYDIA/GONOCOCCUS ALETHEA (SW AB/URINE/PAPon 02-04-2022 Chlamydia trachomatis, ALETHEA Negative Normal Negative [facility] Comment on above: Performed By: #### C T/NGNA #### [facility] [address] [address] [address] Sandi Michelle Neisseria gonorrhoeae, ALETHEA Negative Normal Negative [facility] Comment on above: Performed By: #### C T/NGNA #### [facility] [address] [address] [address] Sandi Michelle PAP ACOG PANEL 2: 30 to 65on 02-04-2022 . . Normal [facility] Comment on above: Result Comment: Perf ormed at: WB Performed By: #### 4 [id number] ####[facility] [address] [place] [address]Dr. Sandi Michelle Age Gdln ACOG Testing 30-65 Normal [facility] Comment on above: Performed By: #### 4 [id number] ####[facility] [address] [place] [address]Dr. Sandi Michelle DIAGNOSIS: Comment Normal [facility] Comment on above: Result Comment: NEGA TIVE FOR INTRAEPITHELIAL LESION OR MALIGNANCY. Performed at: WB Performed By: #### 4 [id number] ####[facility] [address] [place] [address]Dr. Sandi Michelle HPV Aptima Negative Normal Negative [facility] Comment on above: Result Comment: This nucleic acid amplification test detects fourteen high-risk HPV types (16,18,31,33,35,39,45,51,52,56,58,59,66,68) without differentiation. Performed at: =G Performed By: #### 4 [id number] ####[facility] [address]un[address] [place], [place] [address]Dr. Sandi Michelle Methodology: Comment Normal [facility] Comment on above: Result Comment: This liquid based ThinPrep(R) pap test was screened with the use of an image guided system. Performed at: WB Performed By: #### 4 [id number] ####[facility] Ox[address] [place], [place] [address]Dr. Sandi Michelle Note: Comment Normal [facility] Comment on above: Result Comment: The Pap smear is a screening test designed to aid in the detection of premalignant and malignant conditions of the uterine cervix. It is not a diagnostic procedure and should not be used as the sole means of detecting cervical cancer. Both false-positive and false-negative reports do occur. . Performed at: WB Performed By: #### 4 [id number] ####[facility] [address] [place], [place] [address]Dr. Sandi Michelle Performed by: Comment Normal [facility] Comment on above: Result Comment: Vikas Mcclellan, Flag Decorator (ASCP) Performed at: WB Performed By: #### 4 [id number] ####[facility] [address] [place], [place] [address]Dr. Sandi Michelle Specimen adequacy: Comment Normal [facility] Comment on above: Result Comment: Sati sfactory for evaluation. No endocervical component is identified. Performed at: WB Performed By: #### 4 [id number] ####[facility] [address] [place], [place] [address]Dr. Sandi Michelle VAGINITIS/VAGINOSIS DNA PROB Nicholas 02-03-2022 Kaitlynn species Negative Normal Negative [facility] Comment on above: Performed By: #### V AGINT ####[facility] [address] [place], [place] [address]Dr. Sandi Michelle Gardnerella vaginalis Negative Normal Negative [facility] Comment on above: Performed By: #### V AGINT ####[facility] [address] [place], [place] [address]Dr. Sandi Michelle Trichomonas vaginalis Negative Normal Negative [facility] Comment on above: Performed By: #### V AGINT ####[facility] [address] [place], [place] [address]As. Sandi Michelle US PREG ANATOMY SINGLEon US [...] RIGO FISCHER Date: 2022-02-01 19:32 Normal [facility] AFP MATERNAL FOR SPINA BIFID Aon 01-21-2022 AFP MoM 1.24 Normal [facility] Comment on above: Performed By: #### A FPMAT ####[facility] [address] [place], [place] [address]RgDen Michelle AFP Value 55.2 ng/mL Normal [facility] Comment on above: Performed By: #### A FPMAT ####[facility] [address] [place] [phone]. Sandi Michelle AFP, Serum for Spina Bifida Report Normal [facility] Comment on above: Performed By: #### A FPMAT ####[facility] [address] [place] [address]Dr. Sandi Michelle Comment Comment Normal [facility] Comment on above: Result Comment: Iesha Sullivan, Ph.D., [facility] Director . References: Available Upon Request. . Multiples Of Median Cutoffs For AFP Elevations Bhandari 2.5 Black 2.8 IDD 2.0 Twins 4.5 Abbreviation Definitions IDD - Insulin Dep Diabetes OSBR - Open Spina Bifida Risk . For further inquiries contact [facility] at [phone]. . This test was developed and its performance characteristics determined by [employer]. It has not been cleared or approved by the Food and Drug Administration. Performed By: #### A FPMAT ####[facility] [address] [place] [address]Dr. Sandi Michelle Gest Age Collection Date 18.1 weeks Normal [facility] Comment on above: Performed By: #### A FPMAT ####[facility] [address] [place] [address]Dr. Sandi Michelle Gestat, Age Based on JOSE Normal [facility] Comment on above: Result Comment: 05/26 Recalculations are not recommended when gestational dating by LMP and ultrasound are within 10 days. Performed By: #### A FPMAT ####[facility] [address] [place] [address]Dr. Sandi Michelle Insulin Dep Diabetes Comment Normal [facility] Comment on above: Result Comment: Not provided. . Performed By: #### A FPMAT ####[facility] [address] [place] [address]Dr. Sandi Michelle Interpretation Comment Normal [facility] Comment on above: Result Comment: Inte [...] Customer Services to discuss available options. The [employer] recommends amniocentesis be offered to women age 35 and older. Performed By: #### A FPMAT ####[facility] [address] [place] [address]Dr. Sandi Michelle [age] Normal [facility] Comment on above: Performed By: #### A FPMAT ####[facility] [address] [place] [address]Dr. Sandi Michelle Multiple Gestation No Normal [facility] Comment on above: Performed By: #### A FPMAT ####[facility] [address] [place] [address]Dr. Sandi Michelle OSBR Risk 1 IN 5748 Normal [facility] Comment on above: Performed By: #### A FPMAT ####[facility] [address] [place] [address]Dr. Sandi Michelle PDF . Normal [facility] Comment on above: Performed By: #### A FPMAT ####[facility] [address] [place] [address]Dr. Sandi Michelle Race Normal [facility] Comment on above: Performed By: #### A FPMAT ####[facility] [address] [place] [address]Dr. Sandi Michelle Test Results: Negative Normal [facility] Comment on above: Performed By: #### A FPMAT ####[facility] [address] [place] [address]DrDen Michelle HEP B SURFACE ANTIGEN SCREEN on 11-22-2021 HBsAg Screen Negative Normal Negative [facility] Comment on above: Performed By: #### H BSANS ####[facility] [address] [place] [address]Dr. Sandi Michelle HEPATITIS C VIRUS AB W/ REFL EX QUANTon 11-22-2021 HCV AB 0.1 s/co ratio Normal 0.0-0.9 [facility] Comment on above: Performed By: #### C BC #### [facility] [address] [address] [address] Sandi Michelle Interpretation: Comment Normal [facility] Comment on above: Result Comment: Nega tive Not infected with HCV, unless recent infection is suspected or other evidence exists to indicate HCV infection. Performed By: #### C BC #### [facility] [address] [address] [address] Sandi Michelle HIV 1 AND 2 WITH REFLEXon HIV Screen 4th Generation wRfx Non-Reactive Normal Non Reactive [facility] Comment on above: Result Comment: HIV Negative HIV-1/HIV-2 antibodies and HIV-1 p24 antigen were NOT detected. There is no laboratory evidence of HIV infection. Performed By: #### H IV12 ####[facility] [address] [place] [address]Dr. Sandi Michelle RPR QUANTon 11-22-2021 Rapid Plasma Reagin, Quant Non-Reactive Normal NonRea<1:1 [facility] Comment on above: Result Comment: Plea Note: This test does not meet current guidelines for screening and diagnosis of syphilis. This test is intended for following treatment response in patients being treated for syphilis infection. To screen for syphilis infection, a reflex cascade that includes both RPR and a treponema-specific assay should be utilized, such as Treponema pallidum (Syphilis) Screening [place] (371346) or Rapid Plasma Reagin (RPR) Test With Reflex to Quantitative RPR and Confirmatory Treponema pallidum Antibodies (320760). Performed By: #### C BC #### [facility] [id number] Sandi Michelle RUBELLA AB IGGon 11-22-2021 Rubella Antibodies, IgG 9.33 index Normal Immune >0.99 [facility] Comment on above: Result Comment: Non- immune <0.90 Equivocal 0.90 - 0.99 Immune >0.99 Performed By: #### C BC #### [facility] [address] [address] [address] Sandi Michelle CBC AUTO DIFFon 11-21-2021 BASO # 0.0 103/ul Normal 0.0-0.1 [facility] Comment on above: Performed By: #### C BC #### [facility] [address] [address] [address] Sandi Michelle Basophils/100 WBC (Bld) 0.4 % Normal 0.2-2.0 [facility] Comment on above: Performed By: #### C BC #### [facility] [address] [address] [address] Sandi Michelle EO # 0.1 103/ul Normal 0.0-0.7 [facility] Comment on above: Performed By: #### C BC #### [facility] [address] [place] [address] Dr. Sandi Michelle Eosinophils/100 WBC (Bld) 0.6 % Critically low 0.9-7.0 [facility] Comment on above: Performed By: #### C BC #### [facility] [address] [address] [address] Sandi Michelle Erythrocyte distribution width (RBC) [Ratio] 11.9 % Normal 11.0-15.0 [facility] Comment on above: Performed By: #### C BC #### [facility] [address] [place] [address] Dr. Sandi Michelle Hematocrit (Bld) [Volume fraction] 37.1 % Normal 36.0-48.0 [facility] Comment on above: Performed By: #### C BC #### [facility] [address] [address] [address] Sandi Michelle Hemoglobin (Bld) [Mass/Vol] 12.2 g/dL Normal 12.0-16.0 [facility] Comment on above: Performed By: #### C BC #### [facility] [address] [address] [address] Sandi Michelle IG # 0.03 10e3/ul Normal 0.00-0.03 [facility] Comment on above: Performed By: #### C BC #### [facility] [address] [place] [address] Dr. Sandi Michelle IG % 0.4 % Normal 0.0-0.5 [facility] Comment on above: Performed By: #### C BC #### [facility] [address] [place] [address] Dr. Sandi Michelle LYMPH # 1.8 103/ul Normal 1.2-3.8 [facility] Comment on above: Performed By: #### C BC #### [facility] [address] [place] [address] Dr. Sandi Michelle Lymphocytes/100 WBC (Bld) 23.4 % Normal 20.5-60.0 [facility] Comment on above: Performed By: #### C BC #### [facility] [address] [place] [address] Dr. Sandi Michelle MANUAL DIFF REQ NO Normal [facility] Comment on above: Performed By: #### C BC #### [facility] [address] [place] [address] Dr. Sandi Michelle MCH (RBC) [Entitic mass] 31.4 pg Normal 26.7-34.0 [facility] Comment on above: Performed By: #### C BC #### [facility] [address] [place] [address] Dr. Sandi Michelle MCHC (RBC) [Mass/Vol] 32.9 g/dL Normal 29.9-35.2 [facility] Comment on above: Performed By: #### C BC #### [facility] [address] [place] [address] Dr. Sandi Michelle MCV (RBC) [Entitic vol] 95.6 fL Normal 81.0-99.0 [facility] Comment on above: Performed By: #### C BC #### [facility] [address] [place] [address] Dr. Sandi Michelle MONO # 0.5 103/ul Normal 0.3-0.8 [facility] Comment on above: Performed By: #### C BC #### [facility] [address] [place] [address] Dr. Sandi Michelle Monocytes/100 WBC (Bld) 6.6 % Normal 1.7-12.0 [facility] Comment on above: Performed By: #### C BC #### [facility] [address] [place] [address] Dr. Sandi Michelle NEUT # 5.4 103/ul Normal 1.4-6.5 [facility] Comment on above: Performed By: #### C BC #### [facility] [address] [place] [address] Dr. Sandi Michelle Neutrophils/100 WBC (Bld) 68.6 % Normal 43.0-75.0 [facility] Comment on above: Performed By: #### C BC #### [facility] [address] [place] [address] Dr. Sandi Michelle Platelet mean volume (Bld) [Entitic vol] 10.1 fL Normal 9.5-13.5 [facility] Comment on above: Performed By: #### C BC #### [facility] [address] [place] [address] Dr. Sandi Michelle PLT 237 103/ul Normal 150-450 [facility] Comment on above: Performed By: #### C BC #### [facility] [address] [place] [address] Dr. Sandi Michelle RBC 3.88 106/ul Critically low 4.20-5.40 [facility] Comment on above: Performed By: #### C BC #### [facility] [address] [place] [address] Dr. Sandi Michelle WBC 7.9 103/ul Normal 4.0-11.0 [facility] Comment on above: Performed By: #### C BC #### [facility] [address] [place] [address] Dr. Sandi Michelle CULTURE URINEon 11-21-2021 CULTURE URINE Culture Observations : LIGHT GROWTH OF MIXED GENITAL MENDEZ. NO POTENTIAL PATHOGENS SEEN. Normal [facility] Comment on above: Performed By: #### U RCX #### [facility] [address] [place], [place] [address] Dr. Sandi Michelle GLYCOHEMOGLOBIN A1Con 2021 ADA RECOMMENDATION SEE BELOW Normal [facility] Comment on above: Result Comment: ADA RECOMMENDED LIMIT 4.0 - 6.0 ADA THERAPEUTIC TARGET < 7.0 ACTION SUGGESTED > 7.0 Performed By: #### A 1C ####[facility] [address] [place] [id number]. Sandi Michelle Glucose [Mass/Vol] 103 mg/dL Normal [facility] Comment on above: Performed By: #### A 1C ####[facility] [address] [place] [address]Dr. Sandi Michelle HbA1c (Bld) [Mass fraction] 5.2 % Normal 4.5-6.2 [facility] Comment on above: Performed By: #### A 1C ####[facility] [address] [place] [address]Dr. Sandi Michelle TYPE AND SCREENon 11-21-2021 TYPE AND SCREEN Negative Normal [facility] Comment on above: Performed By: #### T NS #### [facility] [address] [address] [address] Sandi Michelle US PREG TVon 11-03-2021 [...] TIFF BAUMANN Date: 2021-11-03 07:19 Normal [facility] PREG QUANT HCGon 10-14-2021 HCG QUANT 469 mIU/mL Normal [facility] Comment on above: Performed By: #### P REGQNT #### [facility] [address] [place], [place] [address] Dr. Sandi Michelle HCG RANGE SEE BELOW Normal [facility] Comment on above: Result Comment: 5-50 0-1 WEEK 40-300 1-2 WEEKS 100-1,000 2-3 WEEKS 500-6,000 3-4 WEEKS 5,000-200,000 1-2 MONTHS 10,000-100,000 2-3 MONTHS 3,000-50,000 2ND TRIMESTER 1,000-50,000 3RD TRIMESTER Performed By: #### P REGQNT #### [facility] [address] [place], [place] [address] Dr. Sandi Michelle PREG QUANT HCGon 10-12-2021 HCG QUANT 184 mIU/mL Normal [facility] Comment on above: Performed By: #### C BC #### [facility] [id number] Sandi Michelle HCG RANGE SEE BELOW Normal [facility] Comment on above: Result Comment: 5-50 0-1 WEEK 40-300 1-2 WEEKS 100-1,000 2-3 WEEKS 500-6,000 3-4 WEEKS 5,000-200,000 1-2 MONTHS 10,000-100,000 2-3 MONTHS 3,000-50,000 2ND TRIMESTER 1,000-50,000 3RD TRIMESTER Performed By: #### C BC #### [facility] [address] [place], [place] [address] Dr. Sandi Michelle PROTEIN C FUNC ACTIVITYon Prt C Activity (Chromogenic) 130 % Normal [facility] Comment on above: Result Comment: Refe rence Range: 17 years and older: 73 - 180 Effective August 10, 2021 Prt C Activity, (Chromogenic) will be made non-orderable. This will not affect any profile that includes Prt C Activity (Chromogenic). [facility] offers [id number] Protein C Functional. For more information please contact your local [facility] Spa Manager/Esthetician. Performed By: #### P RCACT ####[facility] [address] [place] [address]Dr. Sandi Michelle FACTOR V LEIDEN MUTATION CIARAN LYSISon 07-27-2021 Factor V Leiden Comment Normal [facility] Comment on above: Result Comment: Resu lt: c.1601G>A ([id number]) - Not Detected . This result is not associated with an increased risk for venous thromboembolism. See Additional Clinical Information and Comments. Additional Clinical Information: Venous thromboembolism is a multifactorial disease influenced by genetic, environmental, and circumstantial risk factors. The c.1601G>A (p. [id number]) variant in the F5 gene, commonly referred [...] c.*97G>A variant and Factor V Leiden (PMID: 25831970). Additional risk factors include but are not [...] health care providers to discuss results at [phone] ([id number]). . Test Details: Variant Analyzed: c.1601G>A (p. [id number]), referred to as Factor V Leiden . [...] developed and its performance characteristics determined by [facility]. It has not been cleared or approved by the Food and Drug Administration. . References: Masoud S, Hawa GUTIÉRREZ, Randy R, Moses WW, Luis A JH; ACMG Professional Practice and Guidelines Committee. Addendum: [employer] consensus statement on factor V Leiden mutation testing. [place] [facility]. 2020Sep 26. doi: 10.1038/d92086-779-62822-g. PMID: 42173680. . Miriam GAMING. Factor V Leiden Thrombophilia. 1998December 05 [Updated 2017Jul 28]. In: Jv MP, Delia HH, Ian RA, et al., editors. Jovita(R) [Internet]. [place]): [facility]; 8006-9350. Available from: https://www.ncbi.nlm.nih.gov/books/MKW3331/ . Jonh S, Hawa GUTIÉRREZ, Francisco Javier X, Leobardo B, Ash EB, Deysi P, Mari CS; [facility] Laboratory Gas Producer Committee. Venous thromboembolism laboratory testing (factor V Leiden and factor II c.*97G>A), 2018 update: a technical standard of the [place] and [employer]omics (ACMG). [place] [facility]. 2018 Jun;20(12):9252-8477. doi: 10.1038/[id number]-g. Epub 2017Apr 28. PMID: 01137711. . Martha Guillen, PhD, FACMG Lindsay Jaquez, PhD, FACMG Pete Brown, PhD, FACMG Geronimo Mcdaniel, PhD, FACMG Norm Hays, PhD, FACMG Maureen Mancilla, PhD, [facility] Performed By: #### F [facility] ####[id number] [place], [place] [address]Gs. Sandi Michelle ANTITHROMBIN ACTIVITYon -0 Antithrombin Activity 102 % Normal 75-135 [facility] Comment on above: Result Comment: Dire ct Xa inhibitor anticoagulants such as rivaroxaban, apixaban and edoxaban will lead to spuriously elevated antithrombin activity levels possibly masking a deficiency. Performed By: #### C BC #### [facility] [address] [place], [place] [address] Dr. Sandi Michelle B-2 GLYCOPROTEIN AB IGGon Beta-2 Glycoprotein I Ab, IgG <9 Normal 0-20 [facility] Comment on above: Result Comment: The reference interval reflects a 3SD or 99th percentile interval, which is thought to represent a potentially clinically significant result in accordance with the International Consensus Statement on the classification criteria for definitive antiphospholipid syndrome (APS). J Thromb Haem 2006;4:295-306. Performed By: #### B 2GPG ####[facility] [address] [place] [address]Dr. Sandi Michelle B2-GLYCOPROTEIN 1 AB IGMon 0 07-25-2021 Beta-2 Glycoprotein I Ab, IgM <9 Normal 0-32 [facility] Comment on above: Result Comment: The reference interval reflects a 3SD or 99th percentile interval, which is thought to represent a potentially clinically significant result in accordance with the International Consensus Statement on the classification criteria for definitive antiphospholipid syndrome (APS). J Thromb Haem 2006;4:295-306. Performed By: #### B GLYIGM ####[facility] [address] [place] [id number]. Sandi Michelle LUPUS ANTICOAGULANT W/REFLEX on 07-24-2021 aPTT Coag (Bld) [Time] 30.9 s Normal 0.0-51.9 [facility] Comment on above: Performed By: #### L UPUSRF ####[facility] [address] [place] [address]Dr. Sandi Michelle dRVVT 33.0 sec Normal 0.0-47.0 [facility] Comment on above: Performed By: #### L UPUSRF ####[facility] [address] [place] [id number]. Sandi Michelle Interpretation Comment: Normal [facility] Comment on above: Result Comment: No l upus anticoagulant was detected. Performed By: #### L UPUSRF ####[facility] [address] [place] [address]Dr. Sanjuanitasonia Michelle PROTEIN S ANTIGENon 07-24-20 21 Protein S, Free 104 % Normal 61-136 [facility] Comment on above: Performed By: #### P RTSAG ####[facility] [address] [place] [address]Dr. Sandi Michelle Protein S, Total 90 % Normal 60-150 [facility] Comment on above: Result Comment: This test was developed and its performance characteristics determined by [employer]. It has not been cleared or approved by the Food and Drug Administration. Performed By: #### P RTSAG ####[facility] [address] [place] [address]Dr. Sanjuanitasonia Miguel Angel PROTEIN S, FUNCTIONALon 06-26 Protein S-Functional 107 % Normal 63-140 [facility] Comment on above: Result Comment: Prot ein S activity may be falsely increased (masking an abnormal, low result) in patients receiving direct Xa inhibitor (e.g., rivaroxaban, apixaban, edoxaban) or a direct thrombin inhibitor (e.g., dabigatran) anticoagulant treatment due to assay interference by these drugs. Performed By: #### C BC #### [facility] [address] [place] [address] Dr. Sandi Michelle ANTICARDIOLIPIN AB (JEANIE) IGG on 07-23-2021 Anticardiolipin Ab,IgG,Qn <9 Normal 0-14 [facility] Comment on above: Result Comment: Nega tive: <15 Indeterminate: 15 - 20 Low-Med Positive: >20 - 80 High Positive: >80 Performed By: #### C ARDLIP #### [facility] [address] [place] [address] Dr. Sandi Michelle ANTICARDIOLIPIN AB (JEANIE) IGM on 07-23-2021 Anticardiolipin Ab,IgM,Qn 12 MPL U/mL Normal 0-12 [facility] Comment on above: Result Comment: Nega tive: <13 Indeterminate: 13 - 20 Low-Med Positive: >20 - 80 High Positive: >80 Performed By: #### C LADI ####[facility] [address] [place], [place] [address]WcDen Michelle Vital Signs Date Time Vital Sign Value Performing Clinician Facility 08-29-2024 15:30-0500 Body mass index (BMI) [Ratio] 29.92 kg/m2 Lee Keyona DO Work Phone: [facility] 08-29-2024 15:30-0500 Body weight 84.1 kg Lee Keyona DO Work Phone: [facility] 08-29-2024 15:30-0500 Diastolic blood pressure 70 mm[Hg] Lee Keyona DO Work Phone: [facility] 08-29-2024 15:30-0500 Systolic blood pressure 120 mm[Hg] Lee Keyona DO Work Phone: [facility] 08-09-2024 09:39-0500 Body mass index (BMI) [Ratio] 30.18 kg/m2 Lee Keyona DO Work Phone: [facility] 08-09-2024 09:39-0500 Body weight 84.82 kg Lee Keyona DO Work Phone: [facility] 08-09-2024 09:39-0500 Diastolic blood pressure 64 mm[Hg] Lee Keyona DO Work Phone: [facility] 08-09-2024 09:39-0500 Systolic blood pressure 114 mm[Hg] Lee Keyona DO Work Phone: [facility] 07-12-2024 09:59-0500 Body mass index (BMI) [Ratio] 29.39 kg/m2 Lee Keyona DO Work Phone: [facility] 07-12-2024 09:59-0500 Body weight 82.61 kg Lee Keyona DO Work Phone: [facility] 07-12-2024 09:59-0500 Diastolic blood pressure 68 mm[Hg] Lee Keyona DO Work Phone: [facility] 07-12-2024 09:59-0500 Systolic blood pressure 108 mm[Hg] Lee Keyona DO Work Phone: [facility] 06-11-2024 16:44-0500 Body mass index (BMI) [Ratio] 28.59 kg/m2 Lee Keyona DO Work Phone: [facility] 06-11-2024 16:44-0500 Body weight 80.34 kg Lee Keyona DO Work Phone: [facility] 06-11-2024 16:44-0500 Diastolic blood pressure 70 mm[Hg] Lee Keyona DO Work Phone: [facility] 06-11-2024 16:44-0500 Systolic blood pressure 108 mm[Hg] Lee Keyona DO Work Phone: [facility] 05-08-2024 15:11-0400 Body mass index (BMI) [Ratio] 27.76 kg/m2 Lee Keyona DO Work Phone: [facility] 05-08-2024 15:11-0400 Body weight 78.02 kg Lee Keyona DO Work Phone: [facility] 05-08-2024 15:11-0400 Diastolic blood pressure 70 mm[Hg] Lee Keyona DO Work Phone: [facility] 05-08-2024 15:11-0400 Systolic blood pressure 112 mm[Hg] Lee Keyona DO Work Phone: [facility] 04-05-2024 14:24-0400 Body mass index (BMI) [Ratio] 27.76 kg/m2 [facility] Nurse [facility] 04-05-2024 14:24-0400 Body weight 78.02 kg [facility] Nurse [facility] 04-05-2024 14:24-0400 Diastolic blood pressure 68 mm[Hg] [facility] Nurse [facility] 04-05-2024 14:24-0400 Systolic blood pressure 118 mm[Hg] [facility] Nurse [facility] 01-21-2022 03:06-0400 Body weight 72.[address] LEE RAND [facility] Comment on above: Performed By: #### A FPMAT ####[facility] [address] [place], [place] [address]UgDen Michelle Encounters Encounter Date Encounter Type Care [...] Bamboo flowsheet Lee Keyona DO Work Phone: [facility] Start: 07-12-2024 End: 07-12-2024 Bamboo flowsheet Lee Keyona DO Work Phone: [facility] Start: 07-12-2024 End: 07-12-2024 flow sheet Lee Keyona DO Work Phone: [facility] Comment on above: Second trimester pre gnancy; with normal glucose tolerance test (GTT); 22 weeks gestation of ; Diabetes mellitus screening Start: 07-12-2024 End: 07-12-2024 ambulatory LEE KEYONA Not Available Start: 06-30-2024 End: 07-04-2024 Clinisync Result Encounter Lee Keyona DO Work Phone: [facility] External Department Unsolicited Start: 06-30-2024 End: 07-04-2024 Clinisync Result Encounter Lee Keyona DO Work Phone: [facility] External Department Unsolicited Start: 06-11-2024 End: 06-12-2024 ambulatory LEE KEYONA Not Available Start: 06-11-2024 End: 06-12-2024 flow sheet Lee Keyona DO Work Phone: [facility] Comment on above: Second trimester pre [...] [facility] OB [address] [place] [address] Lee Rand, DO [address] [place] [address] [facility] Start: 08-29-2024 End: 08-29-2024 [...] AM EST Routine [facility] [address] [place] [id number] Lee Rand, DO [address] [facility] [facility] [place] [address] [facility] Start: 07-31-2024 End: 07-31-2024 Patient encounter procedure 07/31/2024 1:00 PM EST Office Visit [facility] [address] [facility] [place] [id number] Lee Rand, DO [address] [place] [address] [facility] Start: 07-12-2024 End: 07-12-2025 [...] PM EST Routine [facility] [address] [place] [id number] Lee Radn DO [address] [place] [address] [facility] Start: 06-11-2024 End: 12-09-2024 Alpha fetoprotein, maternal Alpha fetoprotein, maternal Lab Routine Second trimester Expected: 06/11/2024 (Approximate), Expires: 12/09/2024 [facility] Comment on above: Expected: 06/11/2024 [...] Missed menses Expected: 04/05/2024 (Approximate), Expires: 04/05/2025 [facility] Work Phone: Comment on above: Expected: 04/05/2024 (Approximate), Expires: 04/05/2025 Start: 04-05-2024 End: 04-05-2025 Drugs of abuse panel - Urine by Screen method Rapid drug screen, urine Lab Routine Encounter for supervision of normal first in first trimester , unspecified gestational age Expected: 04/05/2024 (Approximate), Expires: 04/05/2025 [facility] Comment on above: Expected: 04/05/2024 (Approximate), Expires: 04/05/2025 Start: 04-05-2024 End: 04-05-2025 US Pelvis transvaginal US OB transvaginal Imaging Routine Missed menses Expected: 04/05/2024 (Approximate), Expires: 04/05/2025 [facility] Comment on above: Expected: 04/05/2024 (Approximate), Expires: 04/05/2025 Bacteria identified in Urine by Culture Urine culture Microbiology Routine Missed menses Ordered: 04/05/2024 [facility] Comment on above: Ordered: 04/05/2024 CBC W Auto Different ial panel - Blood CBC and differential Lab Routine Missed menses Ordered: 04/05/2024 [facility] Comment on above: Ordered: 04/05/2024 CHLAMYDIA TRACHOMATI S (GENITO/STI) CHLAMYDIA TRACHOMATIS (GENITO/STI) Lab Routine STD exposure Ordered: 06/11/2024 [facility] Comment on above: Ordered: 06/11/2024 Hemoglobin A1c/Hemoglobin.total in Blood Hemoglobin A1c Lab Routine Missed menses Ordered: 04/05/2024 [facility] Comment on above: Ordered: 04/05/2024 Hepatitis B virus surface Ag [Presence] in Serum or Plasma by Immunoassay Hepatitis B surface antigen Lab Routine Missed menses Ordered: 04/05/2024 [facility] Comment on above: Ordered: 04/05/2024 Hepatitis C virus Ab [Presence] in Serum or Plasma by Immunoassay Hepatitis C antibody Lab Routine Missed menses Ordered: 04/05/2024 [facility] Comment on above: Ordered: 04/05/2024 HIV-1/HIV-2 antigen/antibody combination immunoassay HIV-1 and HIV-2 antibodies Lab Routine Missed menses Ordered: 04/05/2024 [facility] Comment on above: Ordered: 04/05/2024 Neisseria gonorrhoea e DNA [Presence] in Unspecified specimen by ALETHEA with probe detection Neisseria gonorrhea DNA probe, direct Lab Routine STD exposure Ordered: 06/11/2024 [facility] Comment on above: Ordered: 06/11/2024 Reagin Ab [Presence] in Serum by RPR RPR Lab Routine Missed menses Ordered: 04/05/2024 [facility] Comment on above: Ordered: 04/05/2024 Rubella antibody, IgG Rubella an tibody, IgG Lab Routine Missed menses Ordered: 04/05/2024 [facility] Comment on above: Ordered: 04/05/2024 SURESWAB(R) ADVANCED VAGINITIS PLUS, TMA SURESWAB(R) ADVANCED VAGINITIS PLUS, TMA Pathology and Cytology Routine Vaginal discharge Ordered: 06/11/2024 [facility] Work Phone: Comment on above: Ordered: 06/11/2024 Payers Date Payer Category Payer Private Health Insurance [employer] [id number] 2024 Unknown [id number] 2020 [facility] (unspecified) [id number] 1991 Unknown [id number] 2.16.840.1.221307.3.579.2. 593 1991 Unknown [id number] 2.16.840.1.585935.3.579.2. 593 1991 Unknown [id number] 2.16.840.1.265377.3.579.2. 593 1991 Unknown [id number] 2.16.840.1.267565.3.579.2. 593 1991 Unknown [id number] 2.16.840.1.256820.3.579.2. 593 1991 Unknown [id number] 2.16.840.1.230265.3.579.2. 593 1991 Unknown [id number] 2.16.840.1.406632.3.579.2. 593 1991 Unknown [id number] 2.16.840.1.847409.3.579.2. 593 1991 Unknown [id number] 2.16.840.1.548098.3.579.2. 593 1991 Unknown [id number] 2.16.840.1.647141.3.579.2. 593 1991 Unknown [id number] 2.16.840.1.191374.3.579.2. 593 1991 Unknown [id number] 2.16.840.1.399474.3.579.2. 593 1991 Unknown [id number] 2.16.840.1.342396.3.579.2. 593 1991 Unknown [id number] 2.16.840.1.438019.3.579.2. 593 1991 Unknown [id number] 2.16.840.1.765522.3.579.2. 593 1991 Unknown [id number] 2.16.840.1.504726.3.579.2. 593 1991 Unknown [id number] 2.16.840.1.684934.3.579.2. 593 1991 Unknown [id number] 2.16.840.1.857247.3.579.2. 593 1991 Unknown [id number] 2.16.840.1.746563.3.579.2. 593 1991 Unknown [id number] 2.16.840.1.993789.3.579.2. 593 1991 Unknown [id number] 2.16.840.1.762756.3.579.2. 593 1991 Unknown [id number] 2.16.840.1.126305.3.579.2. 1259 1991 Unknown [id number] 2.16.840.1.543383.3.579.2. 1259 1991 Unknown [id number] 2.16.840.1.601453.3.579.2. 9 1991 Unknown [id number] 2.16.840.1.718240.3.579.2. 1259 1991 Unknown [id number] 2.16.840.1.422231.3.579.2. 9 1991 Unknown [id number] 2.16.840.1.061682.3.579.2. 9 1991 Unknown [id number] 2.16.840.1.409111.3.579.2. 1259 1991 Unknown [id number] 2.16.840.1.660600.3.579.2. 1259 1959 Private Health Insurance [id number] Social History Date Type Detail Facility Start: 02-08-2023 Tobacco smoking stat [facility] Never smoked tobacco [facility] Start: 02-08-2023 Tobacco use and exposure Smokeless t obacco non-user [facility] Start: 04-05-2024 End: 08-29-2024 Alcoholic beverage intake Lifetime non-drinker (finding) [facility] Start: 07-19-2023 End: 01-02-2024 History of Social function [facility] Start: 07-19-2023 End: 01-02-2024 Tobacco use panel [facility] Start: 02-18-2024 [facility] Start: 1990 Sex assigned at Female [facility] Start: 02-06-2023 Gender identity Identifies as female gender (finding) [facility] Start: 02-06-2023 Sexual orientation Heterosexual (fin ding) [facility] Medical Equipment Procedure Code Equipment Code Equipment Origin al Text Equipment Identifier Dates 1 strip by In Vi tro route Daily Use in the morning prior to breakfast, 1 hour after each meal for a total of 4times daily. [id number] Start: 08-09-2024 End: 09-08-2024 1 each by In Vit ro route Daily Use to check FSBS four times daily [id number] Start: 08-09-2024 End: 09-08-2024 Goals Date Patient Goal Desired Activity /State Personal health goal Clinical Notes 06-04-2022 to 08-29-2024 Tere Hu, [facility] - 08/29/2024 3:20 PM ESTSusan Spitler, [employer] - 08/09/2024 9:10 AM ESTSusan Spitler, [employer] - 07/12/2024 9:50 AM ESTSusan Spitler, [facility] - 06/11/2024 3:50 PM EST Note Date [...] Grandmother Isis Cannon Hypertension Paternal Grandmother [facility] SURGICAL HISTORY Past Surgical History: Procedure Laterality [...] nursing note reviewed. Exam conducted with a appointment scheduler present. Vitals: Estimated body mass index is [...] Lee Rand DO documented in this encounter [facility] 08-09-2024 History of Presen t illness Narrative [...] nursing note reviewed. Exam conducted with a appointment scheduler present. Vitals: Estimated body mass index is [...] Lee Rand DO documented in this encounter [facility] 07-12-2024 History of Presen t illness Narrative [...] Known Problems Brother Diabetes Maternal Grandfather Boshellie Albrgiht Cancer Paternal Grandmother Isis Davis Arthritis Paternal [...] nursing note reviewed. Exam conducted with a appointment scheduler present. Vitals: Estimated body mass index is [...] with patient and she is scheduled with [facility] for confirmation of complete placenta previa. Patient to return to clinic in 4 weeks for routine OB. Documented by Miranda Parsons LPN on behalf of: Lee Rand DO documented in this encounter [facility] 06-11-2024 History of Presen t illness Narrative [...] nursing note reviewed. Exam conducted with a appointment scheduler present. Vitals: Estimated body mass index is [...] Lee Rand DO documented in this encounter [facility] 05-08-2024 History of Presen t illness Narrative [...] Grandfather Bo Albright Cancer Paternal Grandmother December [facility] Arthritis Paternal Grandmother December Hypertension Paternal [...] nursing note reviewed. Exam conducted with a appointment scheduler present. Vitals: Estimated body mass index is [...] or undercooked meat, and stay away from [facility]. Patient has been consulted regarding any further do's and don'ts of . Patient voiced understanding and all questions and concerns were answered. Orders Placed This Encounter Procedures POCT urinalysis dipstick manually resulted Follow Up: Patient is to return in 4 weeks for routine OB appointment. Documented by Tere Hu LPN on behalf of: Lee Rand DO documented in this encounter [facility] 04-05-2024 History of Presen t illness Narrative [...] or undercooked meat, and stay away from [facility]. Patient has also been advised to [...] by: Janis Hylton documented in this encounter [facility] 06-04-2022 Note OPERATIVE NOTE OPERATION DATE: 06/04/2022 PROCEDURE: Primary low transverse section. PREOPERATIVE DIAGNOSIS: 1. Intrauterine at 37 5/7 weeks. 2. Breech presentation. POSTOPERATIVE DIAGNOSIS: 1. Intrauterine at 37 5/7 weeks. 2. Breech presentation. 3. 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 SURGEON: Lee Rand HOT WORKER: SCARLET Albert URINE OUTPUT: Yellow and clear. [...] the Recovery Room in stable condition. [facility] Evaluation note Diagnosis 13 weeks gestation of Second trimester state, incidental documented in this encounter [facility] HealthcareEvaluation note* Diagnosis Second trimester state, incidental 18 weeks gestation of Vaginal discharge Leukorrhea, not specified as infective STD exposure Screening, , for anatomic survey Encounter for anatomic survey documented in this encounter [facility] HealthcareEvaluation note* Diagnosis Missed menses Encounter [...] in third trimester documented in this encounter [facility] Summary Purpose Family History No Family History Records FoundNo Family History Records Found Advance Directives No Advanced Directives Records FoundNo Advanced Directives Records Found Additional Source Comments INFORMATION SOURCE (unrecogn ized section and content) DATE CREATED AUTHOR 06/14/2022 [facility] DATE CREATED AUTHOR AUTHOR'S ORGANIZ ATION 09/01/2024 [facility] EPIC Care Teams (unrecognized sec tion and content) [employer] Cross[employer] Relationship Specialty Start Date End Date Fito Cueto MD [address] [place] [id number] PCP - General Family Medicine 02/09/23 [employer] Relationship Specialty Start Date End Date Fito Cueto MD [address] [place] [address] PCP - General Family Medicine 02/09/23 [employer] Cross[employer] Guard Relationship Specialty Start Date End Date Fito Cueto MD [address] [place] [id number] PCP - General Family Medicine 02/09/23 [employer] Cross[employer] Guard Relationship Specialty Start Date End Date Fito Cueto MD [address] [place] [id number] PCP - General Family Medicine 02/09/23 [employer] Crossing Guard Relationship Specialty Start Date End Date Fito Cueto MD [address] [place] [id number] PCP - General Family Medicine 02/09/23 [employer] Crossing Guard Relationship Specialty Start Date End Date Fito Cueto MD [address] [place] [address] PCP - General Family Medicine 02/09/23 [employer] Crossing Guard Relationship Specialty Start Date End Date Fito Cueto MD [address] [place] [address] PCP - General Family Medicine 02/09/23 [employer] Crossing Guard Relationship Specialty Start Date End Date Fito Cueto MD [address] [place] [address] PCP - General Family Medicine 02/09/23 School Crossing Guard Relationship Specialty Start Date End Date Fito Cueto MD [address] [place] [address] PCP - General Family Medicine 02/09/23 [employer] Crossing Guard Relationship Specialty Start Date End Date Fito Cueto MD [address] [place] [address] PCP - General Family Medicine 02/09/23 Reason [...] BE BASED ON THE PRIMARY CLINICAL RECORDS. [facility]. provides no warranty or guarantee of the accuracy or completeness of information in this document.
--- NOTE | 2024-09-11 18:58 | US_ITS ---
[place] [address] Patient Name: RUBÉN MACDONALD MRN: [facility]:[id number] date: 1990 Sex: F Assigned Patient Location: [facility] Current Patient Location: Accession/Order Number: [id number] Exam Date: 09/12/2024 09:01 Report Date: 09/12/2024 09:04 At the request of: MELINDA FREDERICK DO Procedure: US OB BPP w non-stress BIOPHYSICAL PROFILE: CLINICAL INFORMATION: DIET CONTROLLED GESTATIONAL DIABETES MELLITUS O24.410 COMPARISON: 09/04/2024 TECHNIQUE: Multiple ultrasonographic scans of the lower abdomen and pelvis were obtained . The fetus is in the breech presentation. The gestational age is reported at 31 weeks 3 days. The heart rate [id number] beats per minute. FINDINGS: TONE: 1 or more episodes of activity extension and flexion of extremity or opening and closing of the hand [Y] 2/2 GROSS BODY MOVEMENTS: 3 or more discrete body or limb movements [Y] 2/2 BREATHING MOVEMENTS: 1 or more episodes of breathing lasting at least 30 seconds [Y] 2/2 JAS: A single deepest vertical pocket of amniotic fluid greater than 2 cm [Y] 2/2 JAS: 16.9cm. This is in normal range. Total score: 8/8 US/US OB BPP w non-stress IMPRESSION: NORMAL BIOPHYSICAL PROFILE. Impression dictated by: Tere Munoz M.D.09/12/2024 9:04 AM Dictation Location: [facility] Electronically authenticated by: [id number] Y Date: 09/12/2024 09:04
[2024-09-11 19:36] VITALS: BP 115/73; PULSE 93
== END 2024-09-11 20:10 | disposition home or self-care (01) ==
LOC: US 18:49 → FBC 18:53
PROVIDERS: Visit Provider Obstetrics & Gynecology
DX: O24.410 Gestational diabetes mellitus in pregnancy, diet controlled (principal)
CPT/HCPCS: 76818

== ENCOUNTER 2024-09-14 00:13 | Outpatient (OUT) | payer OTHER, SELFPAY ==
--- OUTSIDE RECORDS SUMMARY | 2024-09-14 00:17 | XMS_ITS | CCD ---
Author Organization [facility] Care Team Providers Care Medical Technologist Hematology Name Role Phone KEYONA, DR LAWRENCE Admitting [...] KEYONA, DR LAWRENCE Attending Unavailable GIOVANA, DR VAI Velarde Primary Care Unavail able KEYONA, DR [...] Attending Unavailable TELLY, DR PENNINGTON Consulting Unavailable INDEPENDENCE, DR RIGO Medina Consulting Unavailable KEYONA, DR [...] / HYDROcodone Drug Allergy [facility] Repository Medications Current Medications Medication Drug [...] Active Start: 10-13-2023 take 1 tablet by waldeamr th once daily Vit-Fe Fumarate-FA ( Vitamins) [...] Facility OB BPP W NON-STRESS on 09-05-2024 [place] [address] Ultrasound Report Signed Patient: ANNA LAW MR#: [id number] : 1990 Acct:[id number] Age/Sex: 34 / F ADM Date: 09/04/24 Loc: US Attending Dr: Lee Rand D.O. Ordering Physician: Lee Rand D.O. Date of Service: 09/04/24 Procedure(s): US OB BPP w non-stress Accession Number(s): [id number] cc: Lee Rand D.O.; Physician,Non-Staff M.Herbert The [address] [address] Patient Name: ANNA LAW MRN: TBH:[id number] date: 1990 Sex: F Assigned Patient Location: [facility] Current Patient Location: Accession/Order Number: [id number] Exam Date: 09/04/2024 18:52 Report Date: 09/05/2024 [...] Signed By: 09/05/24 0555 DD/ 0553 TD/TT: Insulation Cutter: [facility] Radiology, Radiologist, MD - 09/05/2024 [place] [address] Ultrasound Report Signed Patient: ANNA LAW MR#: [id number] : 1990 Acct:[id number] Age/Sex: 34 / F ADM Date: 09/04/24 Loc: US Attending Dr: Lee Rand D.O. Ordering Physician: Lee Rand D.O. Date of Service: 09/04/24 Procedure(s): US OB BPP w non-stress Accession Number(s): [id number] cc: eLe Rand D.O.; Physician,Non-Staff [place] The [place] [id number] Patient Name: ANNA LAW MRN: [facility]:[id number] date: 1990 Sex: F Assigned Patient Location: [facility] Current Patient Location: Accession/Order Number: [id number] Exam Date: 09/04/2024 18:52 Report Date: 09/05/2024 05:53 At the request of: LEE KEYOAN Procedure: US OB BPP w non-stress EXAMINATION: [...] M.D. Signed By: 09/05/2455 DD/ 2 TD/TT: Insulation Cutter: [facility] Radiology Study observation (narrative) [facility] US OB BPP W NON-STRESS Ordered By: Radiologist Radiology on 09-05-2024 [facility] Work Phone: Urinalysis macro (dipstick) panel (U)on 08-29-2024 Bilirubin, UA Negative Negative - 4(70) +++ mg/dL [facility] Blood, UA Positive Negative - 50 Yang/mcL [facility] Comment on above: trace-intact Clarity, UA Clear [facility] Color, UA Yellow [facility] Glucose, UA Negative Negative - 2000(110) ++++ mg/dL [facility] Interpretation and review of laboratory results Abnormal [facility] Ketones, UA Positive Negative - 160(16) ++++ mg/dL [facility] Comment on above: 40 Leukocytes, UA Trace Negative - 500+++ Derik/mcL [facility] Nitrite, UA Negative Negative - Positive [facility] pH, UA 5.5 5 - 9 [facility] Protein, UA Trace Negative - 2000(20) ++++ mg/dL [facility] Spec Grav, UA 1.025 1 - 1.03 [facility] Urobilinogen, UA 1.0 0.2 - 12 mg/dL [facility] GLUCOSE TOLERANCE 3 HOURon 0 07-28-2024 GLUCOSE TOLERANCE 3 HOUR High mg/dL [facility] Comment on above: GLU FAST 87 (<95) Co l: 07/28/24 0638 GLU 1HR 199H (<180) Col: 07/28/24 0739 GLU 2HR 173H (<155) Col: 07/28/24 0839 GLU 3HR 94 (<140) Col: 07/28/24 0939 Interpretation and review of laboratory results Abnormal [facility] GLUCOSE 1 HOURon 07-21-2024 Glucose [Mass/Vol] 154 mg/dL High NINF - 13 0 mg/dL [facility] Interpretation and review of laboratory results Abnormal [facility]) panel (U)on 07-12-2024 Bilirubin, UA Negative Negative - 4(70) +++ mg/dL [facility] Blood, UA Negative Negative - 50 Yang/mcL [facility] Clarity, UA Clear [facility] Color, UA Yellow [facility] Glucose, UA Negative Negative - 2000(110) ++++ mg/dL [facility] Interpretation and review of laboratory results Normal [facility] Ketones, UA Negative Negative - 160(16) ++++ mg/dL [facility] Leukocytes, UA Negative Negative - 500+++ Derik/mcL [facility] Nitrite, UA Negative Negative - Positive [facility] pH, UA 7 5 - 9 [facility] Protein, UA Negative Negative - 2000(20) ++++ mg/dL [facility] Spec Grav, UA 1.02 1 - 1.03 [facility] Urobilinogen, UA 1.0 0.2 - 12 mg/dL [facility] AFP, SERUM, OPEN SPINA BIFID Aon 07-04-2024 AFP MOM 1.60 . [facility] AFP VALUE 91.9 ng/mL . [facility] COMMENT: Comment . [facility] Comment on above: Sonia Sullivan , Ph.D., [facility] Director References: Available Upon Request. Multiples Of Median Cutoffs For AFP Elevations Bhandari 2.5 Black 2.8 IDD 2.0 Twins 4.5 Abbreviation Definitions IDD - Insulin Dep Diabetes OSBR - Open Spina Bifida Risk For further inquiries contact [employer] at [phone]. This test was developed and its performance characteristics determined by [employer]. It has not been cleared or approved by the Food and Drug Administration. Performed at: TG - [facility] [address], [place] [id number] Warp Trucker: Francis Boyd [facility], Phone: [phone] GEST. AGE ON COLLECTION DATE 21.0 . weeks [facility] GESTAT. AGE BASED ON LMP . [facility] Comment on above: Recalculations are n ot recommended when gestational dating by LMP and ultrasound are within 10 days. INSULIN DEP DIABETES No . [facility] INTERPRETATION Comment . [facility] Comment on above: Interpretation: Scre en [...] Customer Services to discuss available options. The [employer] recommends amniocentesis be offered to women age 35 and older. [age] [facility] MULTIPLE GESTATION No . [facility] OSBR RISK 1 IN 2100 . [facility] RACE . [facility] RESULTS Report . [facility] TEST RESULTS: Negative . [facility] WEIGHT 177 . lbs [facility] N LMP [id number] 2 18 N 1 Y 177 N N N White/ [facility] RECURRENT VAGINITIS (HTRX)on 06-13-2024 ATOPOBIUM VAGINAE 30.301 Abnormal [facility] ATOPOBIUM VAGINAE Detected Abnormal [facility] BVAB 2,3 (BACTERIAL VAGINOSIS ASSOCIATED BACTERIA 2, 3); MOBILUNCUS SPP 0 [facility] BVAB 2,3 (BACTERIAL VAGINOSIS ASSOCIATED BACTERIA 2, 3); MOBILUNCUS SPP Not detected [facility] KAITLYNN ALBICANS, PARAPSILOSIS, TROPICALIS 0 [facility] KAITLYNN ALBICANS, PARAPSILOSIS, TROPICALIS Not detected [facility] KAITLYNN GLABRATA 0 [facility] KAITLYNN GLABRATA Not detected [facility] KAITLYNN KRUSEI 0 [facility] KAITLYNN KRUSEI Not detected [facility] CHLAMYDIA TRACHOMATIS 0 [facility] CHLAMYDIA TRACHOMATIS Not detected [facility] GARDNERELLA VAGINALIS 21.1 Abnormal [facility] GARDNERELLA VAGINALIS Detected Abnormal [facility] Interpretation and review of laboratory results Abnormal [facility] MEGASPHAERA (TYPES 1, 2) 0 [facility] MEGASPHAERA (TYPES 1, 2) Not detected [facility] MYCOPLASMA GENITALIUM 0 [facility] MYCOPLASMA GENITALIUM Not detected [facility] NEISSERIA GONORRHOEAE 0 [facility] NEISSERIA GONORRHOEAE Not detected [facility] TRICHOMONAS VAGINALIS 0 [facility] TRICHOMONAS VAGINALIS Not detected [facility] Urinalysis macro (dipstick) panel (U)on 06-11-2024 Bilirubin, UA Negative Negative - 4(70) +++ mg/dL [facility] Blood, UA Negative Negative - 50 Yang/mcL [facility] Clarity, UA Clear [facility] Color, UA Yellow [facility] Glucose, UA Negative Negative - 1999(110) ++++ mg/dL [facility] Interpretation and review of laboratory results Normal [facility] Ketones, UA Negative Negative - 160(16) ++++ mg/dL [facility] Leukocytes, UA Negative Negative - 500+++ Derik/mcL [facility] Nitrite, UA Negative Negative - Positive [facility] pH, UA 5.5 5 - 9 [facility] Protein, UA Negative Negative - 1999(20) ++++ mg/dL [facility] Spec Grav, UA 1.02 1 - 1.03 [facility] Urobilinogen, UA 1.0 0.2 - 12 mg/dL [facility] Urinalysis macro (dipstick) panel (U)on 05-08-2024 Bilirubin, UA Negative Negative - 4(70) +++ mg/dL [facility] Blood, UA Positive Negative - 50 Yang/mcL [facility] Comment on above: trace-intact Clarity, UA Clear [facility] Color, UA Yellow [facility] Glucose, UA Negative Negative - 1999(110) ++++ mg/dL [facility] Interpretation and review of laboratory results Abnormal [facility] Ketones, UA Negative Negative - 160(16) ++++ mg/dL [facility] Leukocytes, UA Negative Negative - 500+++ Derik/mcL [facility] Nitrite, UA Negative Negative - Positive [facility] pH, UA 6 5 - 9 [facility] Protein, UA Negative Negative - 1999(20) ++++ mg/dL [facility] Spec Grav, UA 1.025 1 - 1.03 [facility] Urobilinogen, UA 0.2 0.2 - 12 mg/dL [facility] ALL CBC WITH AUTO DIFFon BASOPHILS ABSOLUTE AUTO 0.0 [facility] Basophils/100 WBC (Bld) 0.4 % 0.2 - 2.0 % [facility] Eosinophils/100 WBC (Bld) 0.9 % 0.9 - 7.0 % [facility] Erythrocyte distribution width (RBC) [Ratio] 11.9 % 11.0 - 15.0 % [facility] Hematocrit (Bld) [Volume fraction] 37.1 % 36.0 - 48.0 % [facility] Hemoglobin (Bld) [Mass/Vol] 12.6 g/dL 12.0 - 16.0 g/dL [facility] IMMATURE GRANULOCYTES ABS AUTO 0.03 [facility] Immature granulocytes/100 WBC (Bld) 0.4 % 0.0 - 0.5 % [facility] Interpretation and review of laboratory results Abnormal [facility] LYMPHOCYTES ABSOLUTE AUTO 1.7 [facility] Lymphocytes/100 WBC (Bld) 21.2 % 20.5 - 60.0 % [facility] MCH (RBC) [Entitic mass] 31.7 pg 26.7 - 34.0 pg [facility] MCHC (RBC) [Mass/Vol] 34.0 g/dL 29.9 - 35.2 g/dL [facility] MCV (RBC) [Entitic vol] 93.5 fL 81.0 - 99.0 fL [facility] MONOCYTES ABSOLUTE AUTO 0.6 [facility] Monocytes/100 WBC (Bld) 6.8 % 1.7 - 12.0 % [facility] NEUTROPHILS ABSOLUTE AUTO 5.7 [facility] Neutrophils/100 WBC (Bld) 70.3 % 43.0 - 75.0 % [facility] Platelet mean volume (Bld) [Entitic vol] 9.8 fL 9.5 - 13.5 fL [facility] TBH EO # 0.1 [facility] TBH PLT 219 [facility] TB RBC 3.97 Low [facility] TB WBC 8.1 [facility] HCG ( test) Ql (U)o n 04-05-2024 Interpretation and review of laboratory results Abnormal [facility] Preg Test, Ur Positive [facility] Urinalysis macro (dipstick) panel (U)on 04-05-2024 Bilirubin, UA Negative Negative - 4(70) +++ mg/dL [facility] Blood, UA Positive Negative - 50 Yang/mcL [facility] Comment on above: trace intact Clarity, UA Clear [facility] Color, UA Yellow [facility] Glucose, UA Negative Negative - 1999(110) ++++ mg/dL [facility] Interpretation and review of laboratory results Abnormal [facility] Ketones, UA Negative Negative - 160(16) ++++ mg/dL [facility] Leukocytes, UA Trace Negative - 500+++ Derik/mcL [facility] Nitrite, UA Negative Negative - Positive [facility] pH, UA 6.5 5 - 9 [facility] Protein, UA Negative Negative - 1999(20) ++++ mg/dL [facility] Spec Grav, UA 1.015 1 - 1.03 [facility] Urobilinogen, UA 0.2 0.2 - 12 mg/dL [facility] CBC AUTO DIFFon 06-05-2022 BASO # 0.0 103/ul Normal 0.0-0.1 [facility] Comment on above: Performed By: #### C BC #### [facility] [address] [place] [address] Dr. Sandi Michelle Basophils/100 WBC (Bld) 0.2 % Normal 0.2-2.0 [facility] Comment on above: Performed By: #### C BC #### [facility] [address] [place] [address] Dr. Sandi Michelle EO # 0.0 103/ul Normal 0.0-0.7 [facility] Comment on above: Performed By: #### C BC #### [facility] [address] [place] [address] Dr. Sandi Michelle Eosinophils/100 WBC (Bld) 0.2 % Critically low 0.9-7.0 [facility] Comment on above: Performed By: #### C BC #### [facility] [address] [place] [address] Dr. Sandi Michelle Erythrocyte distribution width (RBC) [Ratio] 14.3 % Normal 11.0-15.0 [facility] Comment on above: Performed By: #### C BC #### [facility] [address] [place] [address] [address] Sandi Michelle Hematocrit (Bld) [Volume fraction] 27.3 % Critically low 36.0-48.0 [facility] Comment on above: Performed By: #### C BC #### [facility] [address] [place] [address] Dr. Sandi Michelle Hemoglobin (Bld) [Mass/Vol] 9.3 g/dL Critically low 12.0-16.0 [facility] Comment on above: Result Comment: DELI VERY Performed By: #### C BC #### [facility] [address] [place] [address] Dr. Sandi Michelle IG # 0.14 10e3/ul Critically high 0.00-0.03 [facility] Comment on above: Performed By: #### C BC #### [facility] [address] [place] [address] Dr. Sandi Michelle IG % 1.1 % Critically high 0.0-0.5 [facility] Comment on above: Performed By: #### C BC #### [facility] [address] [place] [address] Dr. Sandi Michelle LYMPH # 1.6 103/ul Normal 1.2-3.8 [facility] Comment on above: Performed By: #### C BC #### [facility] [address] [place] [address] Dr. Sandi Michelle Lymphocytes/100 WBC (Bld) 12.1 % Critically low 20.5-60.0 [facility] Comment on above: Performed By: #### C BC #### [facility] [address] [place] [address] Dr. Sandi Michelle MANUAL DIFF REQ NO Normal [facility] Comment on above: Performed By: #### C BC #### [facility] [address] [place] [address] Dr. Sandi Michelle MCH (RBC) [Entitic mass] 31.8 pg Normal 26.7-34.0 [facility] Comment on above: Performed By: #### C BC #### [facility] [address] [place] [address] [address] Sandi Michelle MCHC (RBC) [Mass/Vol] 34.1 g/dL Normal 29.9-35.2 [facility] Comment on above: Performed By: #### C BC #### [facility] [address] [place] [address] [address] Sandi Michelle MCV (RBC) [Entitic vol] 93.5 fL Normal 81.0-99.0 [facility] Comment on above: Performed By: #### C BC #### [facility] [address] [place] [address] [address] Sandi Michelle MONO # 0.9 103/ul Critically high 0.3-0.8 [facility] Comment on above: Performed By: #### C BC #### [facility] [address] [place] [address] [address] Sandi Michelle Monocytes/100 WBC (Bld) 6.8 % Normal 1.7-12.0 [facility] Comment on above: Performed By: #### C BC #### [facility] [address] [place] [address] [address] Sandi Michelle NEUT # 10.3 103/ul Critically high 1.4-6.5 [facility] Comment on above: Performed By: #### C BC #### [facility] [address] [place] [address] [address] Sandi Michelle Neutrophils/100 WBC (Bld) 79.6 % Critically high 43.0-75.0 [facility] Comment on above: Performed By: #### C BC #### [facility] [address] [id number] Sandi Michelle Platelet mean volume (Bld) [Entitic vol] 9.8 fL Normal 9.5-13.5 [facility] Comment on above: Performed By: #### C BC #### [facility] [address] [place] [address] [address] Sandi Michelle PLT 138 103/ul Critically low 150-[address] [facility] Comment on above: Performed By: #### C BC #### [facility] [address] [place] [address] [address] Sandi Michelle RBC 2.92 106/ul Critically low 4.20-5.40 [facility] Comment on above: Performed By: #### C BC #### [facility] [address] [place] [address] [address] Sandi Michelle WBC 12.9 103/ul Critically high 4.0-11.0 [facility] Comment on above: Performed By: #### C BC #### [facility] [address] [place] [address] [address] Sandi Michelle CBC AUTO DIFFon 06-04-2022 BASO # 0.0 103/ul Normal 0.0-0.1 [facility] Comment on above: Performed By: #### C BC #### [facility] [address] [place] [address] Dr. Sandi Michelle Basophils/100 WBC (Bld) 0.3 % Normal 0.2-2.0 [facility] Comment on above: Performed By: #### C BC #### [facility] [address] [place] [address] Dr. Sandi Michelle EO # 0.0 103/ul Normal 0.0-0.7 [facility] Comment on above: Performed By: #### C BC #### [facility] [address] [place] [address] Dr. Sandi Michelle Eosinophils/100 WBC (Bld) 0.1 % Critically low 0.9-7.0 [facility] Comment on above: Performed By: #### C BC #### [facility] [address] [place] [address] Dr. Sandi Michelle Erythrocyte distribution width (RBC) [Ratio] 14.4 % Normal 11.0-15.0 [facility] Comment on above: Performed By: #### C BC #### [facility] [address] [place] [address] Dr. Sandi Michelle Hematocrit (Bld) [Volume fraction] 37.2 % Normal 36.0-48.0 [facility] Comment on above: Performed By: #### C BC #### [facility] [address] [address] [address] Sandi Michelle Hemoglobin (Bld) [Mass/Vol] 12.9 g/dL Normal 12.0-16.0 [facility] Comment on above: Performed By: #### C BC #### [facility] [address] [place] [address] [address] Sandi Michelle IG # 0.23 10e3/ul Critically high 0.00-0.03 [facility] Comment on above: Performed By: #### C BC #### [facility] [address] [place] [address] [address] Sandi Michelle IG % 1.6 % Critically high 0.0-0.5 [facility] Comment on above: Performed By: #### C BC #### [facility] [address] [place] [address] Dr. Sandi Michelle LYMPH # 2.3 103/ul Normal 1.2-3.8 [facility] Comment on above: Performed By: #### C BC #### [facility] [address] [place] [address] Dr. Sandi Michelle Lymphocytes/100 WBC (Bld) 16.0 % Critically low 20.5-60.0 [facility] Comment on above: Performed By: #### C BC #### [facility] [address] [place] [address] Dr. Sandi Michelle MANUAL DIFF REQ NO Normal [facility] Comment on above: Performed By: #### C BC #### [facility] [address] [address] [address] Sandi Michelle MCH (RBC) [Entitic mass] 32.3 pg Normal 26.7-34.0 [facility] Comment on above: Performed By: #### C BC #### [facility] [address] [place] [address] Dr. Sandi Michelle MCHC (RBC) [Mass/Vol] 34.7 g/dL Normal 29.9-35.2 [facility] Comment on above: Performed By: #### C BC #### [facility] [address] [place] [address] Dr. Sandi Michelle MCV (RBC) [Entitic vol] 93.0 fL Normal 81.0-99.0 [facility] Comment on above: Performed By: #### C BC #### [facility] [address] [place] [address] Dr. Sandi Michelle MONO # 0.8 103/ul Normal 0.3-0.8 [facility] Comment on above: Performed By: #### C BC #### [facility] [address] [place] [address] Dr. Sandi Michelle Monocytes/100 WBC (Bld) 5.8 % Normal 1.7-12.0 [facility] Comment on above: Performed By: #### C BC #### [facility] [address] [place] [address] Dr. Sandi Michelle NEUT # 10.7 103/ul Critically high 1.4-6.5 [facility] Comment on above: Performed By: #### C BC #### [facility] [address] [place] [address] Dr. Sandi Michelle Neutrophils/100 WBC (Bld) 76.2 % Critically high 43.0-75.0 [facility] Comment on above: Performed By: #### C BC #### [facility] [address] [place] [address] Dr. Sandi Michelle Platelet mean volume (Bld) [Entitic vol] 10.9 fL Normal 9.5-13.5 [facility] Comment on above: Performed By: #### C BC #### [facility] [address] [place] [address] Dr. Sandi Michelle PLT 194 103/ul Normal 150-450 [facility] Comment on above: Performed By: #### C BC #### [facility] [address] [place] [address] Dr. Sandi Michelle RBC 4.00 106/ul Critically low 4.20-5.40 [facility] Comment on above: Performed By: #### C BC #### [facility] [address] [place] [address] Dr. Sandi Michelle WBC 14.0 103/ul Critically high 4.0-11.0 [facility] Comment on above: Performed By: #### C BC #### [facility] [address] [place], [place] [address] Dr. Sandi Michelle [facility] SARS-CoV-2 (COVID-19) RNA ALETHEA+probe Ql (Unsp spec) Not detected Normal NOT DETECTED [facility] [facility] Comment on above: Result Comment: When [...] for this test is supported by the Senior Accounting Manager of Health and Human Service's declaration [...] Performed By: #### C VDTBH ####[facility] [address] [place], [place] [address]Kb. Sandi Michelle DRUG SCREEN RAPID (URINE)on 06-04-2022 AMP Negative Normal NEGATIVE [facility] Comment on above: Performed By: #### D RUGRPD ####[facility] [address] [place], [place] [address]Sj. Sandi Michelle BAR Negative Normal NEGATIVE The [facility] Comment on above: Performed By: #### D RUGRPD ####[facility] [address] [place], [place] [address]Yh. Sandi Michelle BUP Negative Normal NEGATIVE The [facility] Comment on above: Performed By: #### D RUGRPD ####[facility] [address] [place] [id number]. Sandi Michelle BZO Negative Normal NEGATIVE The [facility] Comment on above: Performed By: #### D RUGRPD ####[facility] [address] [place] [address]Dr. Sandi Michelle NINO Negative Normal NEGATIVE The [facility] Comment on above: Performed By: #### D RUGRPD ####[facility] [address] [place], [place] [id number]. Sandi Michelle CUT-OFFS SEE BELOW Normal The [facility] Comment on above: Result Comment: AMP [...] Performed By: #### D RUGRPD ####[facility] [address] [place], [place] [address]Dr. Sandi Michelle DRUG CUT HEADER DRUG CLASS TEST SYSTEM CUT-OFF CONCENTRATIONS ARE FOLLOWS: Normal The [facility] Comment on above: Performed By: #### D RUGRPD ####[facility] [address] [place], [place] [address]Dr. Sandi Michelle mAMP Negative Normal NEGATIVE The [facility] Comment on above: Performed By: #### D RUGRPD ####[facility] [address] [place] [address]Dr. Sandi Michelle MTD Negative Normal NEGATIVE The [facility] Comment on above: Performed By: #### D RUGRPD ####[facility] [address] [place] [address]Dr. Sandi Michelle OPI Negative Normal NEGATIVE The [facility] Comment on above: Performed By: #### D RUGRPD ####[facility] [address] [place] [address]Dr. Sandi Michelle OXY Negative Normal NEGATIVE The [facility] Comment on above: Performed By: #### D RUGRPD ####[facility] [address] [place] [address]Dr. Sandi Michelle PCP Negative Normal NEGATIVE The [facility] Comment on above: Performed By: #### D RUGRPD ####[facility] [address] [place] [address]Dr. Sandi Michelle PPX Negative Normal NEGATIVE The [facility] Comment on above: Performed By: #### D RUGRPD ####[facility] [address] [place] [address]Dr. Sandi Michelle TCA Negative Normal NEGATIVE The [facility] Comment on above: Performed By: #### D RUGRPD ####[facility] [address] [place] [address]Dr. Sandi Michelle THC Negative Normal NEGATIVE The [facility] Comment on above: Performed By: #### D RUGRPD ####[facility] [address] [place], [place] [address]Dr. Sandi Michelle TYPE AND SCREENon 06-04-2022 TYPE AND SCREEN Negative Normal [facility] Comment on above: Performed By: #### T NS ####[facility] [address] [place], [place] [address]Dr. Sandi Michelle US PREG BIOPHY W NON [...] Date: 2022-05-30 08:30 Normal The [facility] GROUP B STREP CULTUREon S. agalactiae Ag Ql (Unsp spec) Culture Observations: NEGATIVE FOR GROUP B STREPTOCOCCUS. Normal [facility] Comment on above: Performed By: #### G BSCX ####[facility] [address] [place], [place] [address]OsDen Michelle US PREG BIOPHY W NON STRESSo [...] by: RIGO FISCHER Date: 2022-05-23 09:41 Normal [facility] US PREG BIOPHY W NON STRESSo [...] by: RIGO FISCHER Date: 2022-05-16 16:10 Normal [facility] US PREG GROWTHon 05-11-2022 US PREG GROWTH EXAMINATION: US PREG GROWTH, US PREG CERVICAL LENGTH HISTORY: Excessive growth affecting management of mother COMPARISON: Ultrasound growth 04/27/2022 FINDINGS: Heart Rate: 137.8 bpm (accession [id number]), 167.3 bpm (accession [id number]) Number: 1.0 Position: BREECH Amniotic Fluid Volume: [...] by: TIFF BAUMANN Date: 2022-05-11 19:19 Normal [facility] US PREG GROWTHon 04-27-2022 US PREG [...] by: TIFF BAUMANN Date: 2022-04-27 20:51 Normal [facility] GLUCOSE - 1HRon 03-15-2022 Glucose [Mass/Vol] 137 mg/dL Critically high 74-106 T [facility] Comment on above: Performed By: #### C BC #### [facility] [address] [place] [address] Dr. Sandi Michelle HEMOGRAM AND PLATELon 2021 Hematocrit (Bld) [Volume fraction] 34.9 % Critically low 36.0-48.0 [facility] Comment on above: Performed By: #### C BC #### [facility] [address] [place] [address] Dr. Sandi Michelle Hemoglobin (Bld) [Mass/Vol] 11.5 g/dL Critically low 12.0-16.0 [facility] Comment on above: Performed By: #### C BC #### [facility] [address] [place] [address] Dr. Sandi Michelle MCH (RBC) [Entitic mass] 31.8 pg Normal 26.7-34.0 [facility] Comment on above: Performed By: #### C BC #### [facility] [address] [place] [address] Dr. Sandi Michelle MCHC (RBC) [Mass/Vol] 33.0 g/dL Normal 29.9-35.2 [facility] Comment on above: Performed By: #### C BC #### [facility] [address] [place] [address] Dr. Sandi Michelle MCV (RBC) [Entitic vol] 96.4 fL Normal 81.0-99.0 [facility] Comment on above: Performed By: #### C BC #### [facility] [address] [place] [address] Dr. Sandi Michelle PLT 225 103/ul Normal 150-450 The [facility] Comment on above: Performed By: #### C BC #### [facility] [address] [place] [address] Dr. Sandi Michelle RBC 3.62 106/ul Critically low 4.20-5.40 [facility] Comment on above: Performed By: #### C BC #### [facility] [address] [place] [address] [address] Sandi Michelle WBC 12.9 103/ul Critically high 4.0-11.0 [facility] Comment on above: Performed By: #### C BC #### [facility] [address] [place] [id number] Sandi Michelle CHLAMYDIA/GONOCOCCUS ALETHEA (SW AB/URINE/PAPon 02-04-2022 Chlamydia trachomatis, ALETHEA Negative Normal Negative [facility] Comment on above: Performed By: #### C T/NGNA #### [facility] [address] [place] [address] [address] Sandi Michelle Neisseria gonorrhoeae, ALETHEA Negative Normal Negative [facility] Comment on above: Performed By: #### C T/NGNA #### [facility] [address] [place] [address] [address] Sandi Michelle PAP ACOG PANEL 2: 30 to 65on 02-04-2022 . . Normal [facility] Comment on above: Result Comment: Perf ormed at: WB Performed By: #### 4 [id number] ####[facility] [address] [place] [address]Dr. Sandi Michelle Age Gdln ACOG Testing 30-65 Normal [facility] Comment on above: Performed By: #### 4 [id number] ####[facility] [address] [place] [address]Dr. Sandi Michelle DIAGNOSIS: Comment Normal [facility] Comment on above: Result Comment: NEGA TIVE FOR INTRAEPITHELIAL LESION OR MALIGNANCY. Performed at: WB Performed By: #### [id number] ####[facility] [address] [place] [address]Dr. Sandi Michelle HPV Aptima Negative Normal Negative [facility] Comment on above: Result Comment: This nucleic acid amplification test detects fourteen high-risk HPV types (16,18,31,33,35,39,45,51,52,56,58,59,66,68) without differentiation. Performed at: =G Performed By: #### 4 [id number] ####[facility] [address] [place], [place] [address]Dr. Sandi Michelle Methodology: Comment Normal [facility] Comment on above: Result Comment: This liquid based ThinPrep(R) pap test was screened with the use of an image guided system. Performed at: WB Performed By: #### 4 [id number] ####[facility] [address] [place], [place] [address]Dr. Sandi Michelle Note: Comment Normal [facility] Comment on above: Result Comment: The Pap smear is a screening test designed to aid in the detection of premalignant and malignant conditions of the uterine cervix. It is not a diagnostic procedure and should not be used as the sole means of detecting cervical cancer. Both false-positive and false-negative reports do occur. . Performed at: WB Performed By: #### 4 [id number] ####[facility] [address] [place], [place] [address]Dr. Sandi Michelle Performed by: Comment Normal [facility] Comment on above: Result Comment: Vikas Mcclellan, Weather Algorithm Scientist (ASCP) Performed at: WB Performed By: #### 4 [id number] ####[facility] [address] [place], [place] [address]Dr. Sandi Michelle Specimen adequacy: Comment Normal [facility] Comment on above: Result Comment: Sati sfactory for evaluation. No endocervical component is identified. Performed at: WB Performed By: #### 4 [id number] ####[facility] [address] [place], [place] [address]Dr. Sandi Michelle VAGINITIS/VAGINOSIS DNA PROB Nicholas 02-03-2022 Kaitlynn species Negative Normal Negative [facility] Comment on above: Performed By: #### V AGINT ####[facility] [address] [place], [place] [address]Dr. Sandi Michelle Gardnerella vaginalis Negative Normal Negative [facility] Comment on above: Performed By: #### V AGINT ####[facility] [address] [place], [place] [address]Dr. Sandi Michelle Trichomonas vaginalis Negative Normal Negative [facility] Comment on above: Performed By: #### V AGINT ####[facility] [address] [place], [place] [address]Xi. Sandi Michelle US PREG ANATOMY SINGLEon US [...] Date: 2022-02-01 19:32 Normal The [facility] AFP MATERNAL FOR SPINA BIFID Aon 01-21-2022 AFP MoM 1.24 Normal [facility] Comment on above: Performed By: #### A FPMAT ####[facility] [address] [place], [place] [address]NtDen Michelle AFP Value 55.2 ng/mL Normal [facility] Comment on above: Performed By: #### A FPMAT ####[facility] [address] [place] [address]Dr. Sandi Michelle AFP, Serum for Spina Bifida Report Normal [facility] Comment on above: Performed By: #### A FPMAT ####[facility] [address] [place] [address]Dr. Sandi Michelle Comment Comment Normal [facility] Comment on above: Result Comment: Iesha Sullivan, Ph.D., [facility] Director . References: Available Upon Request. . Multiples Of Median Cutoffs For AFP Elevations Bhandari 2.5 Black 2.8 IDD 2.0 Twins 4.5 Abbreviation Definitions IDD - Insulin Dep Diabetes OSBR - Open Spina Bifida Risk . For further inquiries contact [employer] [facility] [employer] at [phone]. . This test was developed and its performance characteristics determined by [employer]. It has not been cleared or approved by the Food and Drug Administration. Performed By: #### A FPMAT ####[facility] [address] [place] [address]Dr. Sandi Michelle Gest Age Collection Date 18.1 weeks Normal [facility] Comment on above: Performed By: #### A FPMAT ####[facility] [address] [place] [address]Dr. Sandi Michelle Gestat, Age Based on JOSE Normal [facility] Comment on above: Result Comment: 05/26 Recalculations are not recommended when gestational dating by LMP and ultrasound are within 10 days. Performed By: #### A FPMAT ####[facility] [address] [place] [address]Dr. Sandi Michelle Insulin Dep Diabetes Comment Normal [facility] Comment on above: Result Comment: Not provided. . Performed By: #### A FPMAT ####[facility] [address] [place] [address]Dr. Sandi Michelle Interpretation Comment Normal [facility] Comment on above: Result Comment: Inte [...] Customer Services to discuss available options. The [employer] recommends amniocentesis be offered to women age 35 and older. Performed By: #### A FPMAT ####[facility] [address] [place] [address]Dr. Sandi Michelle [age] Normal [facility] Comment on above: Performed By: #### A FPMAT ####[facility] [address] [place] [address]Dr. Sandi Michelle Multiple Gestation No Normal [facility] Comment on above: Performed By: #### A FPMAT ####[facility] [address] [place] [address]Dr. Sandi Michelle OSBR Risk 1 IN 5748 Normal [facility] Comment on above: Performed By: #### A FPMAT ####[facility] [address] [place] [address]Dr. Sandi Michelle PDF . Normal [facility] Comment on above: Performed By: #### A FPMAT ####[facility] [address] [place] [address]Dr. Sandi Michelle Race Normal [facility] Comment on above: Performed By: #### A FPMAT ####[facility] [address] [place] [address]Dr. Sandi Michelle Test Results: Negative Normal [facility] Comment on above: Performed By: #### A FPMAT ####[facility] [address] [place] [address]DrDen Michelle HEP B SURFACE ANTIGEN SCREEN on 11-22-2021 HBsAg Screen Negative Normal Negative [facility] Comment on above: Performed By: #### H BSANS ####[facility] [address] [place] [address]Dr. Sandi Michelle HEPATITIS C VIRUS AB W/ REFL EX QUANTon 11-22-2021 HCV AB 0.1 s/co ratio Normal 0.0-0.9 [facility] Comment on above: Performed By: #### C BC #### [facility] [address] [place] [address] [address] Sandi Michelle Interpretation: Comment Normal [facility] Comment on above: Result Comment: Nega tive Not infected with HCV, unless recent infection is suspected or other evidence exists to indicate HCV infection. Performed By: #### C BC #### [facility] [address] [place] [address] [address] Sandi Michelle HIV 1 AND 2 WITH REFLEXon HIV Screen 4th Generation wRfx Non-Reactive Normal Non Reactive [facility] Comment on above: Result Comment: HIV Negative HIV-1/HIV-2 antibodies and HIV-1 p24 antigen were NOT detected. There is no laboratory evidence of HIV infection. Performed By: #### H IV12 ####[facility] [address] [place] [address]Dr. Sandi Michelle RPR QUANTon 11-22-2021 Rapid Plasma Reagin, Quant Non-Reactive Normal NonRea<1:1 [facility] Comment on above: Result Comment: Plea Note: This test does not meet current guidelines for screening and diagnosis of syphilis. This test is intended for following treatment response in patients being treated for syphilis infection. To screen for syphilis infection, a reflex cascade that includes both RPR and a treponema-specific assay should be utilized, such as Treponema pallidum (Syphilis) Screening [place] (508183) or Rapid Plasma Reagin (RPR) Test With Reflex to Quantitative RPR and Confirmatory Treponema pallidum Antibodies (260095). Performed By: #### C BC #### [facility] [address] [place] [id number] Sandi Michelle RUBELLA AB IGGon 11-22-2021 Rubella Antibodies, IgG 9.33 index Normal Immune >0.99 [facility] Comment on above: Result Comment: Non- immune <0.90 Equivocal 0.90 - 0.99 Immune >0.99 Performed By: #### C BC #### [facility] [address] [place] [address] [address] Sandi Michelle CBC AUTO DIFFon 11-21-2021 BASO # 0.0 103/ul Normal 0.0-0.1 [facility] Comment on above: Performed By: #### C BC #### [facility] [address] [place] [address] [address] Sandi Michelle Basophils/100 WBC (Bld) 0.4 % Normal 0.2-2.0 [facility] Comment on above: Performed By: #### C BC #### [facility] [address] [place] [address] [address] Sandi Michelle EO # 0.1 103/ul Normal 0.0-0.7 [facility] Comment on above: Performed By: #### C BC #### [facility] [address] [place] [address] Dr. Sandi Michelle Eosinophils/100 WBC (Bld) 0.6 % Critically low 0.9-7.0 [facility] Comment on above: Performed By: #### C BC #### [facility] [address] [place] [address] [address] Sandi Michelle Erythrocyte distribution width (RBC) [Ratio] 11.9 % Normal 11.0-15.0 [facility] Comment on above: Performed By: #### C BC #### [facility] [address] [place] [address] Dr. Sandi Michelle Hematocrit (Bld) [Volume fraction] 37.1 % Normal 36.0-48.0 [facility] Comment on above: Performed By: #### C BC #### [facility] [address] [place] [address] [address] Sandi Michelle Hemoglobin (Bld) [Mass/Vol] 12.2 g/dL Normal 12.0-16.0 [facility] Comment on above: Performed By: #### C BC #### [facility] [address] [place] [address] [address] Sandi Michelle IG # 0.03 10e3/ul Normal 0.00-0.03 [facility] Comment on above: Performed By: #### C BC #### [facility] [address] [place] [address] Dr. Sandi Michelle IG % 0.4 % Normal 0.0-0.5 [facility] Comment on above: Performed By: #### C BC #### [facility] [address] [place] [address] Dr. Sandi Michelle LYMPH # 1.8 103/ul Normal 1.2-3.8 [facility] Comment on above: Performed By: #### C BC #### [facility] [address] [place] [address] Dr. Sandi Michelle Lymphocytes/100 WBC (Bld) 23.4 % Normal 20.5-60.0 [facility] Comment on above: Performed By: #### C BC #### [facility] [address] [place] [address] Dr. Sandi Michelle MANUAL DIFF REQ NO Normal [facility] Comment on above: Performed By: #### C BC #### [facility] [address] [place] [address] Dr. Sandi Michelle MCH (RBC) [Entitic mass] 31.4 pg Normal 26.7-34.0 [facility] Comment on above: Performed By: #### C BC #### [facility] [address] [place] [address] Dr. Sandi Michelle MCHC (RBC) [Mass/Vol] 32.9 g/dL Normal 29.9-35.2 [facility] Comment on above: Performed By: #### C BC #### [facility] [address] [place] [address] Dr. Sandi Michelle MCV (RBC) [Entitic vol] 95.6 fL Normal 81.0-99.0 [facility] Comment on above: Performed By: #### C BC #### [facility] [address] [place] [address] Dr. Sandi Michelle MONO # 0.5 103/ul Normal 0.3-0.8 [facility] Comment on above: Performed By: #### C BC #### [facility] [address] [place] [address] Dr. Sandi Michelle Monocytes/100 WBC (Bld) 6.6 % Normal 1.7-12.0 [facility] Comment on above: Performed By: #### C BC #### [facility] [address] [place] [address] Dr. Sandi Michelle NEUT # 5.4 103/ul Normal 1.4-6.5 [facility] Comment on above: Performed By: #### C BC #### [facility] [address] [place] [address] Dr. Sandi Michelle Neutrophils/100 WBC (Bld) 68.6 % Normal 43.0-75.0 [facility] Comment on above: Performed By: #### C BC #### [facility] [address] [place] [address] Dr. Sandi Michelle Platelet mean volume (Bld) [Entitic vol] 10.1 fL Normal 9.5-13.5 [facility] Comment on above: Performed By: #### C BC #### [facility] [address] [place] [address] Dr. Sandi Michelle PLT 237 103/ul Normal 150-450 [facility] Comment on above: Performed By: #### C BC #### [facility] [address] [place] [address] Dr. Sandi Michelle RBC 3.88 106/ul Critically low 4.20-5.40 [facility] Comment on above: Performed By: #### C BC #### [facility] [address] [place] [address] Dr. Sandi Michelle WBC 7.9 103/ul Normal 4.0-11.0 [facility] Comment on above: Performed By: #### C BC #### [facility] [address] [place] [address] Dr. Sandi Michelle CULTURE URINEon 11-21-2021 CULTURE URINE Culture Observations : LIGHT GROWTH OF MIXED GENITAL MENDEZ. NO POTENTIAL PATHOGENS SEEN. Normal [facility] Comment on above: Performed By: #### U RCX #### [facility] [address] [place], [place] [address] Dr. Sandi Michelle GLYCOHEMOGLOBIN A1Con 2021 ADA RECOMMENDATION SEE BELOW Normal [facility] Comment on above: Result Comment: ADA RECOMMENDED LIMIT 4.0 - 6.0 ADA THERAPEUTIC TARGET < 7.0 ACTION SUGGESTED > 7.0 Performed By: #### A 1C ####[facility] [address] [place] [id number]. Sandi Michelle Glucose [Mass/Vol] 103 mg/dL Normal [facility] Comment on above: Performed By: #### A 1C ####[facility] [address] [place] [address]Dr. Sandi Michelle HbA1c (Bld) [Mass fraction] 5.2 % Normal 4.5-6.2 [facility] Comment on above: Performed By: #### A 1C ####[facility] [address] [place] [address]Dr. Sandi Michelle TYPE AND SCREENon 11-21-2021 TYPE AND SCREEN Negative Normal [facility] Comment on above: Performed By: #### T NS #### [facility] [address] [place] [address] [address] Sandi Michelle US PREG TVon 11-03-2021 [...] TIFF BAUMANN Date: 2021-11-03 07:19 Normal [facility] PREG QUANT HCGon 10-14-2021 HCG QUANT 469 mIU/mL Normal [facility] Comment on above: Performed By: #### P REGQNT #### [facility] [address] [place], [place] [address] Dr. Sandi Michelle HCG RANGE SEE BELOW Normal [facility] Comment on above: Result Comment: 5-50 0-1 WEEK 40-300 1-2 WEEKS 100-1,000 2-3 WEEKS 500-6,000 3-4 WEEKS 5,000-200,000 1-2 MONTHS 10,000-100,000 2-3 MONTHS 3,000-50,000 2ND TRIMESTER 1,000-50,000 3RD TRIMESTER Performed By: #### P REGQNT #### [facility] [address], [place] [address] Dr. Sandi Michelle PREG QUANT HCGon 10-12-2021 HCG QUANT 184 mIU/mL Normal [facility] Comment on above: Performed By: #### C BC #### [facility] [address] [id number] Sandi Michelle HCG RANGE SEE BELOW Normal [facility] Comment on above: Result Comment: 5-50 0-1 WEEK 40-300 1-2 WEEKS 100-1,000 2-3 WEEKS 500-6,000 3-4 WEEKS 5,000-200,000 1-2 MONTHS 10,000-100,000 2-3 MONTHS 3,000-50,000 2ND TRIMESTER 1,000-50,000 3RD TRIMESTER Performed By: #### C BC #### [facility] [address] [place], [place] [address] Dr. Sandi Michelle PROTEIN C FUNC ACTIVITYon Prt C Activity (Chromogenic) 130 % Normal [facility] Comment on above: Result Comment: Refe rence Range: 17 years and older: 73 - 180 Effective August 10, 2021 Prt C Activity, (Chromogenic) will be made non-orderable. This will not affect any profile that includes Prt C Activity (Chromogenic). [facility] offers [id number] Protein C Functional. For more information please contact your local [facility] Geological Aide. Performed By: #### P RCACT ####[facility] [address] [place] [address]Dr. Sandi Michelle FACTOR V LEIDEN MUTATION CIARAN LYSISon 07-27-2021 Factor V Leiden Comment Normal [facility] Comment on above: Result Comment: Resu lt: c.1601G>A (p.Uol113Oxm) - Not Detected . This result is not associated with an increased risk for venous thromboembolism. See Additional Clinical Information and Comments. Additional Clinical Information: Venous thromboembolism is a multifactorial disease influenced by genetic, environmental, and circumstantial risk factors. The c.1601G>A (p. Uqe655Ehd) variant in the F5 gene, commonly referred [...] c.*97G>A variant and Factor V Leiden (PMID: 87963337). Additional risk factors include but are not [...] health care providers to discuss results at [phone]). . Test Details: Variant Analyzed: c.1601G>A (p. Ahb525Xuf), referred to as Factor V Leiden . [...] developed and its performance characteristics determined by [facility]. It has not been cleared or approved by the Food and Drug Administration. . References: Masoud S, Hawa GUTIÉRREZ, Randy R, Moses WW, Luis A JH; [facility] Professional Practice and Guidelines Committee. Addendum: [place] [employer] consensus statement on factor V Leiden mutation testing. [place] [facility]. 2020Sep 26. doi: 10.1038/a02220-844-70527-c. PMID: 65197313. . Miriam GAMING. Factor V Leiden Thrombophilia. 1998December 05 [Updated 2017Jul 28]. In: Jv MP, Delia HH, Ian RA, et al., editors. Jovita(R) [Internet]. [place] ([place]): [facility]; 4857-2359. Available from: https://www.ncbi.nlm.nih.gov/books/VWG6006/ . Jonh S, Hawa GUTIÉRREZ, Francisco Javier X, Leobardo B, Ash EB, Deysi P, Mari CS; [facility] Director Committee. Venous thromboembolism laboratory testing (factor V Leiden and factor II c.*97G>A), 2018 update: a technical standard of the [place] [employer] and Genomics (ACMG). [place] [employer]. 2018 Jun;20(12):0672-8193. doi: 10.1038/p07349-555-2071-w. Epub 2017Apr 28. PMID: 34029352. . Martha Guillen, PhD, FAC[facility] Lindsay Jaquez, PhD, [facility]ACMG Pete Brown, PhD, [employer]MG Geronimo Mcdaniel, PhD, [facility]ACMG Norm Hays, PhD, FACMG Maureen Mancilla, PhD, [facility] Performed By: #### F [facility] ####[id number] [place], [place] [address]Vr. Sandi Michelle ANTITHROMBIN ACTIVITYon -0 Antithrombin Activity 102 % Normal 75-135 [facility] Comment on above: Result Comment: Dire ct Xa inhibitor anticoagulants such as rivaroxaban, apixaban and edoxaban will lead to spuriously elevated antithrombin activity levels possibly masking a deficiency. Performed By: #### C BC #### [facility] [address] [place], [place] [address] Dr. Sandi Michelle B-2 GLYCOPROTEIN AB IGGon Beta-2 Glycoprotein I Ab, IgG <9 Normal 0-20 [facility] Comment on above: Result Comment: The reference interval reflects a 3SD or 99th percentile interval, which is thought to represent a potentially clinically significant result in accordance with the International Consensus Statement on the classification criteria for definitive antiphospholipid syndrome (APS). J Thromb Haem 2006;4:295-306. Performed By: #### B 2GPG ####[facility] [address] [place] [address]Dr. Sandi Michelle B2-GLYCOPROTEIN 1 AB IGMon 0 07-25-2021 Beta-2 Glycoprotein I Ab, IgM <9 Normal 0-32 [facility] Comment on above: Result Comment: The reference interval reflects a 3SD or 99th percentile interval, which is thought to represent a potentially clinically significant result in accordance with the International Consensus Statement on the classification criteria for definitive antiphospholipid syndrome (APS). J Thromb Haem 2006;4:295-306. Performed By: #### B GLYIGM ####[facility] [address] [place] [id number]. Sandi Michelle LUPUS ANTICOAGULANT W/REFLEX on 07-24-2021 aPTT Coag (Bld) [Time] 30.9 s Normal 0.0-51.9 [facility] Comment on above: Performed By: #### L UPUSRF ####[facility] [address] [place] [address]Dr. Sandi Michelle dRVVT 33.0 sec Normal 0.0-47.0 [facility] Comment on above: Performed By: #### L UPUSRF ####[facility] [address] [place] [id number]. Sandi Michelle Interpretation Comment: Normal [facility] Comment on above: Result Comment: No l upus anticoagulant was detected. Performed By: #### L UPUSRF ####[facility] [address] [place] [address]Dr. Sanjuanitasonia Michelle PROTEIN S ANTIGENon 07-24-20 21 Protein S, Free 104 % Normal 61-136 [facility] Comment on above: Performed By: #### P RTSAG ####[facility] [address] [place] [address]Dr. Sandi Michelle Protein S, Total 90 % Normal 60-150 [facility] Comment on above: Result Comment: This test was developed and its performance characteristics determined by [facility]. It has not been cleared or approved by the Food and Drug Administration. Performed By: #### P RTSAG ####[facility] [address] [place] [address]Dr. Sanjuanitasonia Miguel Angel PROTEIN S, FUNCTIONALon 06-26 Protein S-Functional 107 % Normal 63-140 [facility] Comment on above: Result Comment: Prot ein S activity may be falsely increased (masking an abnormal, low result) in patients receiving direct Xa inhibitor (e.g., rivaroxaban, apixaban, edoxaban) or a direct thrombin inhibitor (e.g., dabigatran) anticoagulant treatment due to assay interference by these drugs. Performed By: #### C BC #### [facility] [address] [place] [address] Dr. Sandi Michelle ANTICARDIOLIPIN AB (JEANIE) IGG on 07-23-2021 Anticardiolipin Ab,IgG,Qn <9 Normal 0-14 [facility] Comment on above: Result Comment: Nega tive: <15 Indeterminate: 15 - 20 Low-Med Positive: >20 - 80 High Positive: >80 Performed By: #### C ARDLIP #### [facility] [address] [place] [address] Dr. Sandi Michelle ANTICARDIOLIPIN AB (JEANEI) IGM on 07-23-2021 Anticardiolipin Ab,IgM,Qn 12 MPL U/mL Normal 0-12 [facility] Comment on above: Result Comment: Nega tive: <13 Indeterminate: 13 - 20 Low-Med Positive: >20 - 80 High Positive: >80 Performed By: #### C HIDI ####[facility] [address] [place], [place] [address]CwDen Michelle Vital Signs Date Time Vital Sign Value Performing Clinician Facility 08-29-2024 15:30-0500 Body mass index (BMI) [Ratio] 29.92 kg/m2 Lee Keyona DO Work Phone: [facility] 08-29-2024 15:30-0500 Body weight 84.1 kg Lee Keyona DO Work Phone: [facility] 08-29-2024 15:30-0500 Diastolic blood pressure 70 mm[Hg] Lee Keyona DO Work Phone: [facility] 08-29-2024 15:30-0500 Systolic blood pressure 120 mm[Hg] Lee Keyona DO Work Phone: [facility] 08-09-2024 09:39-0500 Body mass index (BMI) [Ratio] 30.18 kg/m2 Lee Keyona DO Work Phone: [facility] 08-09-2024 09:39-0500 Body weight 84.82 kg Lee Keyona DO Work Phone: [facility] 08-09-2024 09:39-0500 Diastolic blood pressure 64 mm[Hg] Lee Keyona DO Work Phone: [facility] 08-09-2024 09:39-0500 Systolic blood pressure 114 mm[Hg] Lee Keyona DO Work Phone: [facility] 07-12-2024 09:59-0500 Body mass index (BMI) [Ratio] 29.39 kg/m2 Lee Keyona DO Work Phone: [facility] 07-12-2024 09:59-0500 Body weight 82.61 kg Lee Keyona DO Work Phone: [facility] 07-12-2024 09:59-0500 Diastolic blood pressure 68 mm[Hg] Lee Keyona DO Work Phone: [facility] 07-12-2024 09:59-0500 Systolic blood pressure 108 mm[Hg] Lee Keyona DO Work Phone: [facility] 06-11-2024 16:44-0500 Body mass index (BMI) [Ratio] 28.59 kg/m2 Lee Keyona DO Work Phone: [facility] 06-11-2024 16:44-0500 Body weight 80.34 kg Lee Keyona DO Work Phone: [facility] 06-11-2024 16:44-0500 Diastolic blood pressure 70 mm[Hg] Lee Keyona DO Work Phone: [facility] 06-11-2024 16:44-0500 Systolic blood pressure 108 mm[Hg] Lee Keyona DO Work Phone: [facility] 05-08-2024 15:11-0400 Body mass index (BMI) [Ratio] 27.76 kg/m2 Lee Keyona DO Work Phone: [facility] 05-08-2024 15:11-0400 Body weight 78.02 kg Lee Keyona DO Work Phone: [facility] 05-08-2024 15:11-0400 Diastolic blood pressure 70 mm[Hg] Lee Keyona DO Work Phone: [facility] 05-08-2024 15:11-0400 Systolic blood pressure 112 mm[Hg] Lee Keyona DO Work Phone: [facility] 04-05-2024 14:24-0400 Body mass index (BMI) [Ratio] 27.76 kg/m2 [facility] Nurse [facility] 04-05-2024 14:24-0400 Body weight 78.02 kg [facility] Nurse [facility] 04-05-2024 14:24-0400 Diastolic blood pressure 68 mm[Hg] [facility] Nurse [facility] 04-05-2024 14:24-0400 Systolic blood pressure 118 mm[Hg] [facility] Nurse [facility] 01-21-2022 03:06-0400 Body weight 72.[address] LEE RAND [facility] Comment on above: Performed By: #### A FPMAT ####[facility] [address] [place], [place] [address]ApDen Michelle Encounters Encounter Date Encounter Type Care [...] Bamboo flowsheet Lee Keyona DO Work Phone: [facility] Start: 07-12-2024 End: 07-12-2024 Bamboo flowsheet Lee Keyona DO Work Phone: [facility] Start: 07-12-2024 End: 07-12-2024 flow sheet Lee Keyona DO Work Phone: [facility] Comment on above: Second trimester pre gnancy; with normal glucose tolerance test (GTT); 22 weeks gestation of ; Diabetes mellitus screening Start: 07-12-2024 End: 07-12-2024 ambulatory LEE KEYONA Not Available Start: 06-30-2024 End: 07-04-2024 Clinisync Result Encounter Lee Keyona DO Work Phone: [facility] External Department Unsolicited Start: 06-30-2024 End: 07-04-2024 Clinisync Result Encounter Lee Keyona DO Work Phone: [facility] External Department Unsolicited Start: 06-11-2024 End: 06-12-2024 ambulatory LEE KEYONA Not Available Start: 06-11-2024 End: 06-12-2024 flow sheet Lee Keyona DO Work Phone: [facility] Comment on above: Second trimester pre [...] [facility] [address] [place] [address] Lee Rand, DO [address] [place] [address] [facility] Start: 08-29-2024 End: 08-29-2024 [...] AM EST Routine [facility] [address] [place] [id number] Lee Rand, DO [address] [place] [address] [facility] Start: 07-31-2024 End: 07-31-2024 Patient encounter procedure 07/31/2024 1:00 PM EST Office Visit [facility] [address] [facility] [place] [address] Lee Rand, DO [address] [place] [address] [facility] Start: 07-12-2024 End: 07-12-2025 [...] PM EST Routine [facility] [address] [place] [address] Lee Rand DO [address] [place] [address] [facility] Start: 06-11-2024 End: 12-09-2024 Alpha fetoprotein, maternal Alpha fetoprotein, maternal Lab Routine Second trimester Expected: 06/11/2024 (Approximate), Expires: 12/09/2024 [facility] Comment on above: Expected: 06/11/2024 (Approximate), [...] Missed menses Expected: 04/05/2024 (Approximate), Expires: 04/05/2025 [facility] Work Phone: Comment on above: Expected: 04/05/2024 (Approximate), Expires: 04/05/2025 Start: 04-05-2024 End: 04-05-2025 Drugs of abuse panel - Urine by Screen method Rapid drug screen, urine Lab Routine Encounter for supervision of normal first in first trimester , unspecified gestational age Expected: 04/05/2024 (Approximate), Expires: 04/05/2025 [facility] Comment on above: Expected: 04/05/2024 (Approximate), Expires: 04/05/2025 Start: 04-05-2024 End: 04-05-2025 US Pelvis transvaginal US OB transvaginal Imaging Routine Missed menses Expected: 04/05/2024 (Approximate), Expires: 04/05/2025 [facility] Comment on above: Expected: 04/05/2024 (Approximate), Expires: 04/05/2025 Bacteria identified in Urine by Culture Urine culture Microbiology Routine Missed menses Ordered: 04/05/2024 [facility] Comment on above: Ordered: 04/05/2024 CBC W Auto Different ial panel - Blood CBC and differential Lab Routine Missed menses Ordered: 04/05/2024 [facility] Comment on above: Ordered: 04/05/2024 CHLAMYDIA TRACHOMATI S (GENITO/STI) CHLAMYDIA TRACHOMATIS (GENITO/STI) Lab Routine STD exposure Ordered: 06/11/2024 [facility] Comment on above: Ordered: 06/11/2024 Hemoglobin A1c/Hemoglobin.total in Blood Hemoglobin A1c Lab Routine Missed menses Ordered: 04/05/2024 [facility] Comment on above: Ordered: 04/05/2024 Hepatitis B virus surface Ag [Presence] in Serum or Plasma by Immunoassay Hepatitis B surface antigen Lab Routine Missed menses Ordered: 04/05/2024 [facility] Comment on above: Ordered: 04/05/2024 Hepatitis C virus Ab [Presence] in Serum or Plasma by Immunoassay Hepatitis C antibody Lab Routine Missed menses Ordered: 04/05/2024 [facility] Comment on above: Ordered: 04/05/2024 HIV-1/HIV-2 antigen/antibody combination immunoassay HIV-1 and HIV-2 antibodies Lab Routine Missed menses Ordered: 04/05/2024 [facility] Comment on above: Ordered: 04/05/2024 Neisseria gonorrhoea e DNA [Presence] in Unspecified specimen by ALETHEA with probe detection Neisseria gonorrhea DNA probe, direct Lab Routine STD exposure Ordered: 06/11/2024 [facility] Comment on above: Ordered: 06/11/2024 Reagin Ab [Presence] in Serum by RPR RPR Lab Routine Missed menses Ordered: 04/05/2024 [facility] Comment on above: Ordered: 04/05/2024 Rubella antibody, IgG Rubella an tibody, IgG Lab Routine Missed menses Ordered: 04/05/2024 [facility] Comment on above: Ordered: 04/05/2024 SURESWAB(R) ADVANCED VAGINITIS PLUS, TMA SURESWAB(R) ADVANCED VAGINITIS PLUS, TMA Pathology and Cytology Routine Vaginal discharge Ordered: 06/11/2024 [facility] Work Phone: Comment on above: Ordered: 06/11/2024 Payers Date Payer Category Payer Private Health Insurance [employer] [id number] 2024 Unknown [id number] 2020 [facility] (unspecified) [id number] 1991 Unknown [id number] 2.16.840.1.545987.3.579.2. 593 1991 Unknown [id number] 2.16.840.1.111468.3.579.2. 593 1991 Unknown [id number] 2.16.840.1.403007.3.579.2. 593 1991 Unknown [id number] 2.16.840.1.865485.3.579.2. 593 1991 Unknown [id number] 2.16.840.1.083377.3.579.2. 593 1991 Unknown [id number] 2.16.840.1.076341.3.579.2. 593 1991 Unknown [id number] 2.16.840.1.947694.3.579.2. 593 1991 Unknown [id number] 2.16.840.1.404151.3.579.2. 593 1991 Unknown [id number] 2.16.840.1.451354.3.579.2. 593 1991 Unknown [id number] 2.16.840.1.195894.3.579.2. 593 1991 Unknown [id number] 2.16.840.1.166146.3.579.2. 593 1991 Unknown [id number] 2.16.840.1.453440.3.579.2. 593 1991 Unknown [id number] 2.16.840.1.309230.3.579.2. 593 1991 Unknown [id number] 2.16.840.1.500026.3.579.2. 593 1991 Unknown [id number] 2.16.840.1.418162.3.579.2. 593 1991 Unknown [id number] 2.16.840.1.482366.3.579.2. 593 1991 Unknown [id number] 2.16.840.1.356157.3.579.2. 593 1991 Unknown [id number] 2.16.840.1.722270.3.579.2. 593 1991 Unknown [id number] 2.16.840.1.187643.3.579.2. 593 1991 Unknown [id number] 2.16.840.1.795593.3.579.2. 593 1991 Unknown [id number] 2.16.840.1.211377.3.579.2. 593 1991 Unknown [id number] 2.16.840.1.537915.3.579.2. 1259 1991 Unknown [id number] 2.16.840.1.256570.3.579.2. 1259 1991 Unknown [id number] 2.16.840.1.971912.3.579.2. 9 1991 Unknown [id number] 2.16.840.1.545021.3.579.2. 1259 1991 Unknown [id number] 2.16.840.1.652762.3.579.2. 9 1991 Unknown [id number] 2.16.840.1.085299.3.579.2. 9 1991 Unknown [id number] 2.16.840.1.740214.3.579.2. 1259 1991 Unknown [id number] 2.16.840.1.817808.3.579.2. 1259 1959 Private Health Insurance [id number] Social History Date Type Detail Facility Start: 02-08-2023 Tobacco smoking stat [facility] Never smoked tobacco [facility] Start: 02-08-2023 Tobacco use and exposure Smokeless t obacco non-user [facility] Start: 04-05-2024 End: 08-29-2024 Alcoholic beverage intake Lifetime non-drinker (finding) [facility] Start: 07-19-2023 End: 01-02-2024 History of Social function [facility] Start: 07-19-2023 End: 01-02-2024 Tobacco use panel [facility] Start: 02-18-2024 [facility] Start: 1990 Sex assigned at Female [facility] Start: 02-06-2023 Gender identity Identifies as female gender (finding) [facility] Start: 02-06-2023 Sexual orientation Heterosexual (fin ding) [facility] Medical Equipment Procedure Code Equipment Code Equipment Origin al Text Equipment Identifier Dates 1 strip by In Vi tro route Daily Use in the morning prior to breakfast, 1 hour after each meal for a total of 4times daily. [id number] Start: 08-09-2024 End: 09-08-2024 1 each by In Vit ro route Daily Use to check FSBS four times daily [id number] Start: 08-09-2024 End: 09-08-2024 Goals Date Patient Goal Desired Activity /State Personal health goal Clinical Notes 06-04-2022 to 08-29-2024 Tere Hu, [facility] - 08/29/2024 3:20 PM ESTSusan Spitler, [employer] MACHINE OPERATOR - 08/09/2024 9:10 AM ESTSusan Spitler, [employer] MACHINE OPERATOR - 07/12/2024 9:50 AM ESTSusan Spitler, [facility] - 06/11/2024 3:50 PM EST Note Date [...] Grandmother Isis Cannon Hypertension Paternal Grandmother [facility]is [facility] SURGICAL HISTORY Past Surgical History: Procedure Laterality [...] nursing note reviewed. Exam conducted with a atomic spectroscopist present. Vitals: Estimated body mass index is [...] Lee Rand DO documented in this encounter [facility] 08-09-2024 History of Presen t illness Narrative Reason for Appointment: Patient ID: Anna Lwa is a 34 y.o. female who presents [...] nursing note reviewed. Exam conducted with a atomic spectroscopist present. Vitals: Estimated body mass index is [...] Lee Rand DO documented in this encounter [facility] 07-12-2024 History of Presen t illness [...] nursing note reviewed. Exam conducted with a atomic spectroscopist present. Vitals: Estimated body mass index is [...] with patient and she is scheduled with [facility] for confirmation of complete placenta previa. Patient to return to clinic in 4 weeks for routine OB. Documented by Miranda Parsons LPN on behalf of: Lee Rand DO documented in this encounter [facility] 06-11-2024 History of Presen t illness [...] nursing note reviewed. Exam conducted with a atomic spectroscopist present. Vitals: Estimated body mass index is [...] Lee Rand DO documented in this encounter [facility] 05-08-2024 History of Presen t illness [...] Grandfather Bo Albright Cancer Paternal Grandmother December [facility] Arthritis Paternal Grandmother December Hypertension Paternal Grandmother [...] nursing note reviewed. Exam conducted with a atomic spectroscopist present. Vitals: Estimated body mass index is [...] or undercooked meat, and stay away from [facility]. Patient has been consulted regarding any further do's and don'ts of . Patient voiced understanding and all questions and concerns were answered. Orders Placed This Encounter Procedures POCT urinalysis dipstick manually resulted Follow Up: Patient is to return in 4 weeks for routine OB appointment. Documented by Tere Hu LPN on behalf of: Lee Rand DO documented in this encounter [facility] 04-05-2024 History of Presen t illness [...] or undercooked meat, and stay away from [facility]. Patient has also been advised to not [...] by: Janis Hylton documented in this encounter [facility] 06-04-2022 Note OPERATIVE NOTE OPERATION DATE: 06/04/2022 PROCEDURE: Primary low transverse section. PREOPERATIVE DIAGNOSIS: 1. Intrauterine at 37 5/7 weeks. 2. Breech presentation. POSTOPERATIVE DIAGNOSIS: 1. Intrauterine at 37 5/7 weeks. 2. Breech presentation. 3. 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 SURGEON: Lee Rand COPPER MINER: SCARLET Albert URINE OUTPUT: Yellow and clear. [...] Room in stable condition. [facility] Evaluation note Diagnosis 13 weeks gestation of Second trimester state, incidental documented in this encounter [facility] HealthcareEvaluation note* Diagnosis Second trimester state, incidental 18 weeks gestation of Vaginal discharge Leukorrhea, not specified as infective STD exposure Screening, , for anatomic survey Encounter for anatomic survey documented in this encounter [facility]* Diagnosis Missed menses Encounter [...] in third trimester documented in this encounter [facility] Summary Purpose Family History No Family History Records FoundNo Family History Records Found Advance Directives No Advanced Directives Records FoundNo Advanced Directives Records Found Additional Source Comments INFORMATION SOURCE (unrecogn ized section and content) DATE CREATED AUTHOR 06/14/2022 [facility] DATE CREATED AUTHOR AUTHOR'S ORGANIZ ATION 09/01/2024 [facility] EPIC Care Teams (unrecognized sec tion and content) Medical Technologist Hematology Relationship Specialty Start Date End Date Fito Cueto MD [address] [place] [id number] PCP - General Family Medicine 02/09/23 Medical Technologist Hematology Relationship Specialty Start Date End Date Fito Cueto MD [address] [place] [id number] PCP - General Family Medicine 02/09/23 Medical Technologist Hematology Relationship Specialty Start Date End Date Fito Cueto MD [address] [place] [id number] PCP - General Family Medicine 02/09/23 Medical Technologist Hematology Relationship Specialty Start Date End Date Fito Cueto MD [address] [place] [id number] PCP - General Family Medicine 02/09/23 Medical Technologist Hematology Relationship Specialty Start Date End Date Fito Cueto MD [address] [place] [id number] PCP - General Family Medicine 02/09/23 Medical Technologist Hematology Relationship Specialty Start Date End Date Fito Cueto MD [address] [place] [id number] PCP - General Family Medicine 02/09/23 Medical Technologist Hematology Relationship Specialty Start Date End Date Fito Cueto MD [address] [place] [id number] PCP - General Family Medicine 02/09/23 Medical Technologist Hematology Relationship Specialty Start Date End Date Fito Cueto MD [address] [place] [phone] PCP - General Family Medicine 02/09/23 Medical Technologist Hematology Relationship Specialty Start Date End Date Fito Cueto MD [address] [place] [address] PCP - General Family Medicine 02/09/23 Medical Technologist Hematology Relationship Specialty Start Date End Date Fito Cueto MD [address] [place] [address] PCP - General Family Medicine 02/09/23 Reason [...] BE BASED ON THE PRIMARY CLINICAL RECORDS. [employer] [facility]. provides no warranty or guarantee of the accuracy or completeness of information in this document.
[2024-09-14 17:55] VITALS: BP 119/77; PULSE 91
== END 2024-09-14 18:30 | disposition home or self-care (01) ==
LOC: FBCO 00:13 → FBC 17:51
PROVIDERS: Visit Provider Obstetrics & Gynecology
DX: O24.419 Gestational diabetes mellitus in pregnancy, unspecified control (principal); Z3A.31 31 weeks gestation of pregnancy
CPT/HCPCS: 59025

== ENCOUNTER 2024-09-18 01:10 | Outpatient (OUT) | payer OTHER, SELFPAY ==
--- OUTSIDE RECORDS SUMMARY | 2024-09-18 01:14 | XMS_ITS | CCD ---
Author Organization [facility] Care Team Providers Care Restoration Silversmith Name Role Phone KEYONA, DR LAWRENCE Admitting Unavailable KEYONA, DR LAWRENCE Attending Unavailable GIOVANA, DR AVI Velarde Primary Care Unavail able CORSICANA, DR RIGO Medina Consulting Unavailable KEYONA, DR [...] Consulting Unavailable MORGOJOSE RAMON Galloway Consulting Unavailable SHARP, MISSY Consulting Unavailable KEYONA, DR LAWRENCE Admitting Unavailable [...] DR LAWRENCE Consulting Unavailable GIOVANA, DR AVI eVlarde Primary Care Unavail able TELLY, DR PENNINGTON Admitting Unavailable TELLY, DR PENNINGTON Attending Unavailable TELLY, DR PENNINGTON Consulting Unavailable CORSICANA, DR RIGO Medina Consulting Unavailable KEYONA, DR LAWRENCE Consulting Unavailable Nory DAVIS, Fito Primary Care Provider KEYONA, LEE Attending Unavailable KEYONA, LEE Attending Unavailable KEYONA, LEE Attending Unavailable KEYONA, LEE Attending Unavailable KEYONA, LEE Attending Unavailable KEYONA, LEE Attending Unavailable KEYONA, LEE Attending Unavailable KEYONA, LEE Attending Unavailable Allergies Allergy Classification Reported Allergen(s) Allergy Type Date of Onset Reaction(s) Facility (2 sources) Acetaminophen / HYDROcodone Drug Allergy [facility] Repository Medications Current Medications Medication Drug Class(es) Dates Sig (Normalized) Sig (Original) aspirin 81 mg delayed release oral tablet (6 sources) Platelet Aggregation Inhibitor, Nonsteroidal Anti-inflammatory Drug take 1 tablet by mouth once daily aspirin 81 MG EC tablet Take 81 mg by mouth Daily Active Blood Glucose Monitoring Suppl (D-Care Glucometer) w/Device kit (9 sources) Start: 08-09-2024 End: 08-09-2025 Blood Glucose Monitoring Suppl (D-Care Glucometer) w/Device kit Indications: Elevated glucose tolerance test 1 kit Daily Use four times daily to check FSBS. In the morning prior to breakfast & 1 hour after each meal for a total of 4times daily. 1 kit 08/09/2024 08/09/2025 Active folic acid 1 mg oral tablet (20 sources) take 1 tablet by mouth once daily folic acid (Folvite) 1 MG tablet Take 1 mg by mouth 1 (one) time each day at the same time Active isopropyl alcohol 0.7 ml/ml medicated pad (9 sources) Start: 08-09-2024 Alcohol Swabs (Alcohol Prep [...] [29 weeks gestation of ] 08-29-2024 Episodic Residual codes; unclassified (2 sources) Gestation period, 31 weeks; Translations: [31 weeks gestation of ] 09-12-2024 Episodic Unclassified (1 source) CONTACT W/AND (SUSP) EXPOS COVID-19; Translations: [CONTACT W/AND (SUSP) EXPOS COVID-19] Onset: 06-14-2022 Unclassified (20 sources) OB Reminders Onset: 04-23-2024 04-23-2024 Past [...] Range Facility OB BPP W NON-STRESS on 09-12-2024 [place] [address] Ultrasound Report Signed Patient: ANNA LAW MR#: [id number] : 1990 Acct:[id number] Age/Sex: 34 / F ADM Date: 09/11/24 Loc: US Attending Dr: Lee Rand D.O. Ordering Physician: Lee Rand D.O. Date of Service: 09/11/24 Procedure(s): US OB BPP w non-stress Accession Number(s): [id number] cc: Lee Rand D.O.; Physician,Non-Staff MJuan Alberto The [address] [address] Patient Name: ANNA LAW MRN: [facility]:[id number] date: 1990 Sex: F Assigned Patient Location: [facility] Current Patient Location: Accession/Order Number: [id number] Exam Date: 09/12/2024 09:01 Report Date: 09/12/2024 09:04 At the request of: LEE RAND DO Procedure: US OB BPP w non-stress BIOPHYSICAL PROFILE: CLINICAL INFORMATION: DIET CONTROLLED GESTATIONAL DIABETES MELLITUS O24.410 COMPARISON: 09/04/2024 TECHNIQUE: Multiple ultrasonographic scans of the lower abdomen and pelvis were obtained . The fetus is in the breech presentation. The gestational age is reported at 31 weeks 3 days. The heart rate [id number] beats per minute. FINDINGS: TONE: 1 or more episodes of activity extension and flexion of extremity or opening and closing of the hand [Y] 2/2 GROSS BODY MOVEMENTS: 3 or more discrete body or limb movements [Y] 2/2 BREATHING MOVEMENTS: 1 or more episodes of breathing lasting at least 30 seconds [Y] 2/2 JAS: A single deepest vertical pocket of amniotic fluid greater than 2 cm [Y] 2/2 JAS: 16.9cm. This is in normal range. Total score: 8/8 US/US OB BPP w non-stress IMPRESSION: NORMAL BIOPHYSICAL PROFILE. Impression dictated by: Tere Munoz M.D.09/12/2024 9:04 AM Dictation Location: [place] [address] Electronically authenticated by: [id number] Y Date: 09/12/2024 09:04 Dictated By: Tere Munoz M.D. Signed By: 09/12/24905 DD/ 3 TD/TT: Economic Consultant: [facility] Radiology, Radiologist, - 09/12/2024 [place] [address] Ultrasound Report Signed Patient: ANNA LAW MR#: [id number] : 1990 Acct:[id number] Age/Sex: 34 / F ADM Date: 09/11/24 Loc: US Attending Dr: Lee Keyona D.O. Ordering Physician: Lee Rand D.O. Date of Service: 09/11/24 Procedure(s): US OB BPP w non-stress Accession Number(s): [id number] cc: Lee Rand D.O.; Physician,Non-Staff [place] [id number] Patient Name: ANNA LAW MRN: [facility]:[id number] date: 1990 Sex: F Assigned Patient Location: [facility] Current Patient Location: Accession/Order Number: [id number] Exam Date: 09/12/2024 09:01 Report Date: 09/12/2024 09:04 At the request of: LEE RAND DO Procedure: US OB BPP w non-stress BIOPHYSICAL PROFILE: CLINICAL INFORMATION: DIET CONTROLLED GESTATIONAL DIABETES MELLITUS O24.410 COMPARISON: 09/04/2024 TECHNIQUE: Multiple ultrasonographic scans of the lower abdomen and pelvis were obtained . The fetus is in the breech presentation. The gestational age is reported at 31 weeks 3 days. The heart rate [id number] beats per minute. FINDINGS: TONE: 1 or more episodes of activity extension and flexion of extremity or opening and closing of the hand [Y] 2/2 GROSS BODY MOVEMENTS: 3 or more discrete body or limb movements [Y] 2/2 BREATHING MOVEMENTS: 1 or more episodes of breathing lasting at least 30 seconds [Y] 2/2 JAS: A single deepest vertical pocket of amniotic fluid greater than 2 cm [Y] 2/2 JAS: 16.9cm. This is in normal range. Total score: 8/8 US/US OB BPP w non-stress IMPRESSION: NORMAL BIOPHYSICAL PROFILE. Impression dictated by: Tere Munoz M.D.09/12/2024 9:04 AM Dictation Location: [place] [address] Electronically authenticated by: [id number] Y Date: 09/12/2024 09:04 Dictated By: Tere Munoz M.D. Signed By: 09/12/24905 DD/ 3 TD/TT: Economic Consultant: [facility] Radiology Study observation (narrative) [facility] US OB BPP W NON-STRESS Ordered By: Radiologist Radiology on 09-12-2024 [facility] Work Phone: Urinalysis macro (dipstick) panel (U)on 09-12-2024 Bilirubin, UA Negative Negative - 4(70) +++ mg/dL [facility] Blood, UA Negative Negative - 50 Yang/mcL [facility] Clarity, UA Clear [facility] Color, UA Yellow [facility] Glucose, UA Negative Negative - 2000(110) ++++ mg/dL [facility] Interpretation and review of laboratory results Abnormal [facility] Ketones, UA Positive Negative - 160(16) ++++ mg/dL [facility] Comment on above: trace Leukocytes, UA Negative Negative - 500+++ Derik/mcL [facility] Nitrite, UA Negative Negative - Positive [facility] pH, UA 7 5 - 9 [facility] Protein, UA Trace Negative - 2000(20) ++++ mg/dL [facility] Spec Grav, UA 1.02 1 - 1.03 [facility] Urobilinogen, UA 0.2 0.2 - 12 mg/dL [facility] US OB BPP W NON-STRESS on 09-05-2024 [place] [address] Ultrasound Report Signed Patient: ANNA LAW MR#: [id number] : 1990 Acct:[id number] Age/Sex: 34 / F ADM Date: 09/04/24 Loc: US Attending Dr: Lee Rand D.O. Ordering Physician: Lee Rand D.O. Date of Service: 09/04/24 Procedure(s): US OB BPP w non-stress Accession Number(s): [id number] cc: Lee Rand D.O.; Physician,Non-Staff M.DDen The [address] [address] Patient Name: ANNA LAW MRN: [id number] date: 1990 Sex: F Assigned Patient Location: [facility] Current Patient Location: Accession/Order Number: [id number] Exam Date: 09/04/2024 18:52 Report Date: 09/05/2024 [...] Tiff Baumann M.D. Signed By: 09/05/2455 DD/ TD/TT: Economic Consultant: [facility] Radiology, Radiologist, MD - 09/05/2024 [place] [address] Ultrasound Report Signed Patient: ANNA LAW MR#: [id number] : 1990 Acct:[id number] Age/Sex: 34 / F ADM Date: 09/04/24 Loc: US Attending Dr: Lee Rand D.O. Ordering Physician: Lee Rand D.O. Date of Service: 09/04/24 Procedure(s): US OB BPP w non-stress Accession Number(s): [id number] cc: Lee Rand D.O.; Physician,Non-Staff Agu[place] The [address] [address] Patient Name: ANNA LAW MRN: [facility]:[id number] date: 1990 Sex: F Assigned Patient Location: [facility] Current Patient Location: Accession/Order Number: [id number] Exam Date: 09/04/2024 18:52 Report Date: 09/05/2024 [...] Tiff Baumann M.D. Signed By: 09/05/2455 DD/ TD/TT: Economic Consultant: [facility] Radiology Study observation (narrative) [facility] US OB BPP W NON-STRESS Ordered By: Radiologist Radiology on 09-05-2024 [facility] Work Phone: Urinalysis macro (dipstick) panel (U)on 08-29-2024 Bilirubin, UA Negative Negative - 4(70) +++ mg/dL [facility] Blood, UA Positive Negative - 50 Yang/mcL [facility] Comment on above: trace-intact Clarity, UA Clear [facility] Color, UA Yellow [facility] Glucose, UA Negative Negative - 2000(110) ++++ mg/dL [facility] Interpretation and review of laboratory results Abnormal [facility] Ketones, UA Positive Negative - 160(16) ++++ mg/dL [facility] Comment on above: 40 Leukocytes, UA Trace Negative - 500+++ Derik/mcL [facility] Nitrite, UA Negative Negative - Positive [facility] pH, UA 5.5 5 - 9 [facility] Protein, UA Trace Negative - 2000(20) ++++ mg/dL [facility] Spec Grav, UA 1.025 1 - 1.03 [facility] Urobilinogen, UA 1.0 0.2 - 12 mg/dL [facility] GLUCOSE TOLERANCE 3 HOURon 0 07-28-2024 GLUCOSE TOLERANCE 3 HOUR High mg/dL [facility] Comment on above: GLU FAST 87 (<95) Co l: 07/28/24 0638 GLU 1HR 199H (<180) Col: 07/28/24 0739 GLU 2HR 173H (<155) Col: 07/28/24 0839 GLU 3HR 94 (<140) Col: 07/28/24 0939 Interpretation and review of laboratory results Abnormal [facility] GLUCOSE 1 HOURon 07-21-2024 Glucose [Mass/Vol] 154 mg/dL High NINF - 13 0 mg/dL [facility] Interpretation and review of laboratory results Abnormal [facility]stick) panel (U)on 07-12-2024 Bilirubin, UA Negative Negative - 4(70) +++ mg/dL [facility] Blood, UA Negative Negative - 50 Yang/mcL [facility] Clarity, UA Clear [facility] Color, UA Yellow [facility] Glucose, UA Negative Negative - 2000(110) ++++ mg/dL [facility] Interpretation and review of laboratory results Normal [facility] Ketones, UA Negative Negative - 160(16) ++++ mg/dL [facility] Leukocytes, UA Negative Negative - 500+++ Derik/mcL [facility] Nitrite, UA Negative Negative - Positive [facility] pH, UA 7 5 - 9 [facility] Protein, UA Negative Negative - 2000(20) ++++ mg/dL [facility] Spec Grav, UA 1.02 1 - 1.03 [facility] Urobilinogen, UA 1.0 0.2 - 12 mg/dL [facility] AFP, SERUM, OPEN SPINA BIFID Aon 07-04-2024 AFP MOM 1.60 . [facility] AFP VALUE 91.9 ng/mL . [facility] COMMENT: Comment . [facility] Comment on above: Sonia Sullivan , Ph.D., [facility] Director References: Available Upon Request. Multiples Of Median Cutoffs For AFP Elevations Bhandari 2.5 Black 2.8 IDD 2.0 Twins 4.5 Abbreviation Definitions IDD - Insulin Dep Diabetes OSBR - Open Spina Bifida Risk For further inquiries contact [employer] at [phone]. This test was developed and its performance characteristics determined by [facility]. It has not been cleared or approved by the Food and Drug Administration. Performed at: [facility] [address] [place], [place] [id number] Meat Specialist: Francis Boyd [facility], Phone: [phone] GEST. AGE ON COLLECTION DATE 21.0 . weeks [facility] GESTAT. AGE BASED ON LMP . [facility] Comment on above: Recalculations are n ot recommended when gestational dating by LMP and ultrasound are within 10 days. INSULIN DEP DIABETES No . [facility] INTERPRETATION Comment . [facility] Comment on above: Interpretation: Scre [...] Customer Services to discuss available options. The [employer] recommends amniocentesis be offered to women age 35 and older. [age] [facility] MULTIPLE GESTATION No . [facility] OSBR RISK 1 IN 2100 . [facility] RACE . [facility] RESULTS Report . [facility] TEST RESULTS: Negative . [facility] WEIGHT 177 . lbs [facility] N LMP [id number] 2 18 N 1 Y 177 N N N White/ [facility] RECURRENT VAGINITIS (HTRX)on 06-13-2024 ATOPOBIUM VAGINAE 30.301 Abnormal [facility] ATOPOBIUM VAGINAE Detected Abnormal [facility] BVAB 2,3 (BACTERIAL VAGINOSIS ASSOCIATED BACTERIA 2, 3); MOBILUNCUS SPP 0 [facility] BVAB 2,3 (BACTERIAL VAGINOSIS ASSOCIATED BACTERIA 2, 3); MOBILUNCUS SPP Not detected [facility] KAITLYNN ALBICANS, PARAPSILOSIS, TROPICALIS 0 [facility] KAITLYNN ALBICANS, PARAPSILOSIS, TROPICALIS Not detected [facility] KAITLYNN GLABRATA 0 [facility] KAITLYNN GLABRATA Not detected [facility] KAITLYNN KRUSEI 0 [facility] KAITLYNN KRUSEI Not detected [facility] CHLAMYDIA TRACHOMATIS 0 [facility] CHLAMYDIA TRACHOMATIS Not detected [facility] GARDNERELLA VAGINALIS 21.1 Abnormal [facility] GARDNERELLA VAGINALIS Detected Abnormal [facility] Interpretation and review of laboratory results Abnormal [facility] MEGASPHAERA (TYPES 1, 2) 0 [facility] MEGASPHAERA (TYPES 1, 2) Not detected [facility] MYCOPLASMA GENITALIUM 0 [facility] MYCOPLASMA GENITALIUM Not detected [facility] NEISSERIA GONORRHOEAE 0 [facility] NEISSERIA GONORRHOEAE Not detected [facility] TRICHOMONAS VAGINALIS 0 [facility] TRICHOMONAS VAGINALIS Not detected [facility] Urinalysis macro (dipstick) panel (U)on 06-11-2024 Bilirubin, UA Negative Negative - 4(70) +++ mg/dL [facility] Blood, UA Negative Negative - 50 Yang/mcL [facility] Clarity, UA Clear [facility] Color, UA Yellow [facility] Glucose, UA Negative Negative - 1999(110) ++++ mg/dL [facility] Interpretation and review of laboratory results Normal [facility] Ketones, UA Negative Negative - 160(16) ++++ mg/dL [facility] Leukocytes, UA Negative Negative - 500+++ Derik/mcL [facility] Nitrite, UA Negative Negative - Positive [facility] pH, UA 5.5 5 - 9 [facility] Protein, UA Negative Negative - 1999(20) ++++ mg/dL [facility] Spec Grav, UA 1.02 1 - 1.03 [facility] Urobilinogen, UA 1.0 0.2 - 12 mg/dL [facility] Urinalysis macro (dipstick) panel (U)on 05-08-2024 Bilirubin, UA Negative Negative - 4(70) +++ mg/dL [facility] Blood, UA Positive Negative - 50 Yang/mcL [facility] Comment on above: trace-intact Clarity, UA Clear [facility] Color, UA Yellow [facility] Glucose, UA Negative Negative - 1999(110) ++++ mg/dL [facility] Interpretation and review of laboratory results Abnormal [facility] Ketones, UA Negative Negative - 160(16) ++++ mg/dL [facility] Leukocytes, UA Negative Negative - 500+++ Derik/mcL [facility] Nitrite, UA Negative Negative - Positive [facility] pH, UA 6 5 - 9 [facility] Protein, UA Negative Negative - 1999(20) ++++ mg/dL [facility] Spec Grav, UA 1.025 1 - 1.03 [facility] Urobilinogen, UA 0.2 0.2 - 12 mg/dL [facility] ALL CBC WITH AUTO DIFFon BASOPHILS ABSOLUTE AUTO 0.0 [facility] Basophils/100 WBC (Bld) 0.4 % 0.2 - 2.0 % [facility] Eosinophils/100 WBC (Bld) 0.9 % 0.9 - 7.0 % [facility] Erythrocyte distribution width (RBC) [Ratio] 11.9 % 11.0 - 15.0 % [facility] Hematocrit (Bld) [Volume fraction] 37.1 % 36.0 - 48.0 % [facility] Hemoglobin (Bld) [Mass/Vol] 12.6 g/dL 12.0 - 16.0 g/dL [facility] IMMATURE GRANULOCYTES ABS AUTO 0.03 [facility] Immature granulocytes/100 WBC (Bld) 0.4 % 0.0 - 0.5 % [facility] Interpretation and review of laboratory results Abnormal [facility] LYMPHOCYTES ABSOLUTE AUTO 1.7 [facility] Lymphocytes/100 WBC (Bld) 21.2 % 20.5 - 60.0 % [facility] MCH (RBC) [Entitic mass] 31.7 pg 26.7 - 34.0 pg [facility] MCHC (RBC) [Mass/Vol] 34.0 g/dL 29.9 - 35.2 g/dL [facility] MCV (RBC) [Entitic vol] 93.5 fL 81.0 - 99.0 fL [facility] MONOCYTES ABSOLUTE AUTO 0.6 [facility] Monocytes/100 WBC (Bld) 6.8 % 1.7 - 12.0 % [facility] NEUTROPHILS ABSOLUTE AUTO 5.7 [facility] Neutrophils/100 WBC (Bld) 70.3 % 43.0 - 75.0 % [facility] Platelet mean volume (Bld) [Entitic vol] 9.8 fL 9.5 - 13.5 fL [facility] EO # 0.1 [facility] PLT 219 [facility] TB RBC 3.97 Low [facility] WBC 8.1 [facility] HCG ( test) Ql (U)o n 04-05-2024 Interpretation and review of laboratory results Abnormal [facility] Preg Test, Ur Positive [facility] Urinalysis macro (dipstick) panel (U)on 04-05-2024 Bilirubin, UA Negative Negative - 4(70) +++ mg/dL [facility] Blood, UA Positive Negative - 50 Yang/mcL [facility] Comment on above: trace intact Clarity, UA Clear [facility] Color, UA Yellow [facility] Glucose, UA Negative Negative - 1999(110) ++++ mg/dL [facility] Interpretation and review of laboratory results Abnormal [facility] Ketones, UA Negative Negative - 160(16) ++++ mg/dL [facility] Leukocytes, UA Trace Negative - 500+++ Derik/mcL [facility] Nitrite, UA Negative Negative - Positive [facility] pH, UA 6.5 5 - 9 [facility] Protein, UA Negative Negative - 1999(20) ++++ mg/dL [facility] Spec Grav, UA 1.015 1 - 1.03 [facility] Urobilinogen, UA 0.2 0.2 - 12 mg/dL [facility] CBC AUTO DIFFon 06-05-2022 BASO # 0.0 103/ul Normal 0.0-0.1 [facility] Comment on above: Performed By: #### C BC #### [facility] [address] [place] [address] Dr. Sandi Michelle Basophils/100 WBC (Bld) 0.2 % Normal 0.2-2.0 [facility] Comment on above: Performed By: #### C BC #### [facility] [address] [place] [address] Dr. Sandi Michelle EO # 0.0 103/ul Normal 0.0-0.7 [facility] Comment on above: Performed By: #### C BC #### [facility] [address] [place] [address] Dr. Sandi Michelle Eosinophils/100 WBC (Bld) 0.2 % Critically low 0.9-7.0 [facility] Comment on above: Performed By: #### C BC #### [facility] [address] [place] [address] Dr. Sandi Michelle Erythrocyte distribution width (RBC) [Ratio] 14.3 % Normal 11.0-15.0 [facility] Comment on above: Performed By: #### C BC #### [facility] [address] [place] [address] Dr. Sandi Michelle Hematocrit (Bld) [Volume fraction] 27.3 % Critically low 36.0-48.0 [facility] Comment on above: Performed By: #### C BC #### [facility] [address] [place] [address] Dr. Sandi Michelle Hemoglobin (Bld) [Mass/Vol] 9.3 g/dL Critically low 12.0-16.0 [facility] Comment on above: Result Comment: DELI VERY Performed By: #### C BC #### [facility] [address] [place] [address] Dr. Sandi Michelle IG # 0.14 10e3/ul Critically high 0.00-0.03 [facility] Comment on above: Performed By: #### C BC #### [facility] [address] [place] [address] Dr. Sandi Michelle IG % 1.1 % Critically high 0.0-0.5 [facility] Comment on above: Performed By: #### C BC #### [facility] [address] [place] [address] Dr. Sandi Michelle LYMPH # 1.6 103/ul Normal 1.2-3.8 [facility] Comment on above: Performed By: #### C BC #### [facility] [address] [place] [address] Dr. Sandi Michelle Lymphocytes/100 WBC (Bld) 12.1 % Critically low 20.5-60.0 [facility] Comment on above: Performed By: #### C BC #### [facility] [address] [place] [address] Dr. Sandi Michelle MANUAL DIFF REQ NO Normal [facility] Comment on above: Performed By: #### C BC #### [facility] [address] [place] [address] Dr. Sandi Michelle MCH (RBC) [Entitic mass] 31.8 pg Normal 26.7-34.0 [facility] Comment on above: Performed By: #### C BC #### [facility] [address] [place] [address] [address] Sandi Michelle MCHC (RBC) [Mass/Vol] 34.1 g/dL Normal 29.9-35.2 [facility] Comment on above: Performed By: #### C BC #### [facility] [address] [place] [address] [address] Sandi Michelle MCV (RBC) [Entitic vol] 93.5 fL Normal 81.0-99.0 [facility] Comment on above: Performed By: #### C BC #### [facility] [address] [place] [address] [address] Sandi Michelle MONO # 0.9 103/ul Critically high 0.3-0.8 [facility] Comment on above: Performed By: #### C BC #### [facility] [address] [place] [address] [address] Sandi Michelle Monocytes/100 WBC (Bld) 6.8 % Normal 1.7-12.0 [facility] Comment on above: Performed By: #### C BC #### [facility] [address] [place] [address] [address] Sandi Michelle NEUT # 10.3 103/ul Critically high 1.4-6.5 [facility] Comment on above: Performed By: #### C BC #### [facility] [address] [place] [address] [address] Sandi Michelle Neutrophils/100 WBC (Bld) 79.6 % Critically high 43.0-75.0 [facility] Comment on above: Performed By: #### C BC #### [facility] [address] [place] [address] [address] Sandi Michelle Platelet mean volume (Bld) [Entitic vol] 9.8 fL Normal 9.5-13.5 [facility] Comment on above: Performed By: #### C BC #### [facility] [address] [place] [address] [address] Sandi Michelle PLT 138 103/ul Critically low 150-450 [facility] Comment on above: Performed By: #### C BC #### [facility] [address] [place] [address] [address] Sandi Michelle RBC 2.92 106/ul Critically low 4.20-5.40 [facility] Comment on above: Performed By: #### C BC #### [facility] [address] [address] [address] Sandi Michelle WBC 12.9 103/ul Critically high 4.0-11.0 [facility] Comment on above: Performed By: #### C BC #### [facility] [address] [place] [address] Dr. Sandi Michelle CBC AUTO DIFFon 06-04-2022 BASO # 0.0 103/ul Normal 0.0-0.1 [facility] Comment on above: Performed By: #### C BC #### [facility] [address] [place] [address] Dr. Sandi Michelle Basophils/100 WBC (Bld) 0.3 % Normal 0.2-2.0 [facility] Comment on above: Performed By: #### C BC #### [facility] [address] [place] [address] Dr. Sandi Michelle EO # 0.0 103/ul Normal 0.0-0.7 [facility] Comment on above: Performed By: #### C BC #### [facility] [address] [place] [address] Dr. Sandi Michelle Eosinophils/100 WBC (Bld) 0.1 % Critically low 0.9-7.0 [facility] Comment on above: Performed By: #### C BC #### [facility] [address] [place] [address] Dr. Sandi Michelle Erythrocyte distribution width (RBC) [Ratio] 14.4 % Normal 11.0-15.0 [facility] Comment on above: Performed By: #### C BC #### [facility] [address] [place] [address] Dr. Sandi Michelle Hematocrit (Bld) [Volume fraction] 37.2 % Normal 36.0-48.0 [facility] Comment on above: Performed By: #### C BC #### [facility] [address] [address] [address] Sandi Michelle Hemoglobin (Bld) [Mass/Vol] 12.9 g/dL Normal 12.0-16.0 [facility] Comment on above: Performed By: #### C BC #### [facility] [address] [address] [address] Sandi Michelle IG # 0.23 10e3/ul Critically high 0.00-0.03 [facility] Comment on above: Performed By: #### C BC #### [facility] [address] [address] [address] Sandi Michelle IG % 1.6 % Critically high 0.0-0.5 [facility] Comment on above: Performed By: #### C BC #### [facility] [address] [address] [address] Sandi Michelle LYMPH # 2.3 103/ul Normal 1.2-3.8 [facility] Comment on above: Performed By: #### C BC #### [facility] [address] [address] [address] Sandi Michelle Lymphocytes/100 WBC (Bld) 16.0 % Critically low 20.5-60.0 [facility] Comment on above: Performed By: #### C BC #### [facility] [address] [address] [address] Sandi Michelle MANUAL DIFF REQ NO Normal [facility] Comment on above: Performed By: #### C BC #### [facility] [address] [address] [address] Sandi Michelle MCH (RBC) [Entitic mass] 32.3 pg Normal 26.7-34.0 [facility] Comment on above: Performed By: #### C BC #### [facility] [address] [address] [address] Sandi Michelle MCHC (RBC) [Mass/Vol] 34.7 g/dL Normal 29.9-35.2 [facility] Comment on above: Performed By: #### C BC #### [facility] [address] [address] [address] Sandi Michelle MCV (RBC) [Entitic vol] 93.0 fL Normal 81.0-99.0 [facility] Comment on above: Performed By: #### C BC #### [facility] [address] [address] [address] Sandi Michelle MONO # 0.8 103/ul Normal 0.3-0.8 [facility] Comment on above: Performed By: #### C BC #### [facility] [address] [place] [address] Dr. Sandi Michelle Monocytes/100 WBC (Bld) 5.8 % Normal 1.7-12.0 [facility] Comment on above: Performed By: #### C BC #### [facility] [address] [place] [address] Dr. Sandi Michelle NEUT # 10.7 103/ul Critically high 1.4-6.5 [facility] Comment on above: Performed By: #### C BC #### [facility] [address] [place] [address] Dr. Sandi Michelle Neutrophils/100 WBC (Bld) 76.2 % Critically high 43.0-75.0 [facility] Comment on above: Performed By: #### C BC #### [facility] [address] [place] [address] Dr. Sandi Michelle Platelet mean volume (Bld) [Entitic vol] 10.9 fL Normal 9.5-13.5 [facility] Comment on above: Performed By: #### C BC #### [facility] [address] [place] [address] Dr. Sandi Michelle PLT 194 103/ul Normal 150-450 [facility] Comment on above: Performed By: #### C BC #### [facility] [address] [place] [address] Dr. Sandi Michelle RBC 4.00 106/ul Critically low 4.20-5.40 [facility] Comment on above: Performed By: #### C BC #### [facility] [address] [place] [address] Dr. Sandi Michelle WBC 14.0 103/ul Critically high 4.0-11.0 [facility] Comment on above: Performed By: #### C BC #### [facility] [address], [place] [address] Dr. Sandi Michelle Covid-19 PCR ([facility])on 05-25 SARS-CoV-2 (COVID-19) RNA ALETHEA+probe Ql (Unsp spec) Not detected Normal NOT DETECTED [facility] Comment on above: Result Comment: When [...] for this test is supported by the [place] of Health and Human Service's declaration that [...] Performed By: #### C VDTBH ####[facility] [address] [id number]. Sandi Michelle DRUG SCREEN RAPID (URINE)on 06-04-2022 AMP Negative Normal NEGATIVE [facility] Comment on above: Performed By: #### D RUGRPD ####[facility] [address] [place], [place] [address]Tf. Sandi Michelle BAR Negative Normal NEGATIVE [facility] Comment on above: Performed By: #### D RUGRPD ####[facility] [address] [id number]. Sandi Michelle BUP Negative Normal NEGATIVE [facility] Comment on above: Performed By: #### D RUGRPD ####[facility] [address] [address]Dr. Sandi Michelle BZO Negative Normal NEGATIVE [facility] Comment on above: Performed By: #### D RUGRPD ####[facility] [address] [place], [place] [address]Dr. Sandi Michelle NINO Negative Normal NEGATIVE [facility] Comment on above: Performed By: #### D RUGRPD ####[facility] [address] [place], [place] [address]Dr. Sandi Michelle CUT-OFFS SEE BELOW Normal [facility] Comment on above: Result Comment: AMP [...] Performed By: #### D RUGRPD ####[facility] [address] [place], [place] [address]Dr. Sandi Michelle DRUG CUT HEADER DRUG CLASS TEST SYSTEM CUT-OFF CONCENTRATIONS ARE FOLLOWS: Normal [facility] Comment on above: Performed By: #### D RUGRPD ####[facility] [address] [place], [place] [address]Dr. Sandi Michelle mAMP Negative Normal NEGATIVE [facility] Comment on above: Performed By: #### D RUGRPD ####[facility] [address] [place], [place] [address]Dr. Sandi Michelle MTD Negative Normal NEGATIVE [facility] Comment on above: Performed By: #### D RUGRPD ####[facility] [address] [place], [place] [address]Dr. Sandi Michelle OPI Negative Normal NEGATIVE [facility] Comment on above: Performed By: #### D RUGRPD ####[facility] [address] [id number]. Sandi Michelle OXY Negative Normal NEGATIVE [facility] Comment on above: Performed By: #### D RUGRPD ####[facility] [address] [id number]. Sandi Michelle PCP Negative Normal NEGATIVE [facility] Comment on above: Performed By: #### D RUGRPD ####[facility] [address] [id number]. Sandi Michelle PPX Negative Normal NEGATIVE [facility] Comment on above: Performed By: #### D RUGRPD ####[facility] [address] [address]Dr. Sandi Michelle TCA Negative Normal NEGATIVE [facility] Comment on above: Performed By: #### D RUGRPD ####[facility] [address] [address]Dr. Sandi Michelle THC Negative Normal NEGATIVE [facility] Comment on above: Performed By: #### D RUGRPD ####[facility] [address] [address]Dr. Sandi Michelle TYPE AND SCREENon 06-04-2022 TYPE AND SCREEN Negative Normal [facility] Comment on above: Performed By: #### T NS ####[facility] [address] [place], [place] [address]Dr. Sandi Michelle US PREG BIOPHY W NON [...] Date: 2022-05-30 08:30 Normal [facility] GROUP B STREP CULTUREon 11-0 S. agalactiae Ag Ql (Unsp spec) Culture Observations: NEGATIVE FOR GROUP B STREPTOCOCCUS. Normal [facility] Comment on above: Performed By: #### G BSCX ####[facility] [address] [place], [place] [address]AsDen Michelle US PREG BIOPHY W NON STRESSo [...] by: RIGO FISCHER Date: 2022-05-23 09:41 Normal [facility] US PREG BIOPHY W NON STRESSo [...] by: RIGO FISCHER Date: 2022-05-16 16:10 Normal [facility] US PREG GROWTHon 05-11-2022 US PREG GROWTH EXAMINATION: US PREG GROWTH, US PREG CERVICAL LENGTH HISTORY: Excessive growth affecting management of mother COMPARISON: Ultrasound growth 04/27/2022 FINDINGS: Heart Rate: 137.8 bpm (accession [id number]), 167.3 bpm (accession [id number]) Number: 1.0 Position: BREECH Amniotic Fluid Volume: [...] Age by EDC: 34 weeks 1 days OJSE by EDC: Age by US: JOSE by US: [id number] IMPRESSION: 1. Single live intrauterine . 2. Estimated weight is greater than 97th percentile. 3. Synechia band within lower uterine segment. 4. Short, closed cervix 2.1 cm in length. No significant change with Valsalva. Electronically authenticated by: TIFF BAUMANN Date: 2022-05-11 19:19 Normal [facility] US PREG GROWTHon 04-27-2022 US PREG [...] by: TIFF BAUMANN Date: 2022-04-27 20:51 Normal [facility] GLUCOSE - 1HRon 03-15-2022 Glucose [Mass/Vol] 137 mg/dL Critically high 74-106 T [facility] Comment on above: Performed By: #### C BC #### [facility] [address] [address] [address] Sandi Michelle HEMOGRAM AND PLATELon 2021 Hematocrit (Bld) [Volume fraction] 34.9 % Critically low 36.0-48.0 [facility] Comment on above: Performed By: #### C BC #### [facility] [address] [place] [address] Dr. Sandi Michelle Hemoglobin (Bld) [Mass/Vol] 11.5 g/dL Critically low 12.0-16.0 [facility] Comment on above: Performed By: #### C BC #### [facility] [address] [place] [address] Dr. Sandi Michelle MCH (RBC) [Entitic mass] 31.8 pg Normal 26.7-34.0 [facility] Comment on above: Performed By: #### C BC #### [facility] [address] [place] [address] Dr. Sandi Michelle MCHC (RBC) [Mass/Vol] 33.0 g/dL Normal 29.9-35.2 [facility] Comment on above: Performed By: #### C BC #### [facility] [address] [place] [address] Dr. Sandi Michelle MCV (RBC) [Entitic vol] 96.4 fL Normal 81.0-99.0 [facility] Comment on above: Performed By: #### C BC #### [facility] [address] [address] [address] Sandi Michelle PLT 225 103/ul Normal 150-450 [facility] Comment on above: Performed By: #### C BC #### [facility] [address] [place] [address] Dr. Sandi Michelle RBC 3.62 106/ul Critically low 4.20-5.40 [facility] Comment on above: Performed By: #### C BC #### [facility] [address] [address] [address] Sandi Michelle WBC 12.9 103/ul Critically high 4.0-11.0 [facility] Comment on above: Performed By: #### C BC #### [facility] [address] [address] [address] Sandi Michelle CHLAMYDIA/GONOCOCCUS ALETHEA (SW AB/URINE/PAPon 02-04-2022 Chlamydia trachomatis, ALETHEA Negative Normal Negative [facility] Comment on above: Performed By: #### C T/NGNA #### [facility] [address] [address] [address] Sandi Michelle Neisseria gonorrhoeae, ALETHEA Negative Normal Negative [facility] Comment on above: Performed By: #### C T/NGNA #### [facility] [address] [address] [address] Sandi Michelle PAP ACOG PANEL 2: 30 to 65on 02-04-2022 . . Normal [facility] Comment on above: Result Comment: Perf ormed at: WB Performed By: #### 4 [id number] ####[facility] [address] [address]Dr. Sandi Michelle Age Gdln ACOG Testing 30-65 Normal [facility] Comment on above: Performed By: #### 4 [id number] ####[facility] [address] [id number]. Sandi Michelle DIAGNOSIS: Comment Normal [facility] Comment on above: Result Comment: NEGA TIVE FOR INTRAEPITHELIAL LESION OR MALIGNANCY. Performed at: WB Performed By: #### 4 [id number] ####[facility] [address] [id number]. Sandi Michelle HPV Aptima Negative Normal Negative [facility] Comment on above: Result Comment: This nucleic acid amplification test detects fourteen high-risk HPV types (16,18,31,33,35,39,45,51,52,56,58,59,66,68) without differentiation. Performed at: =G Performed By: #### 4 [id number] ####[facility] [address] [place], [place] [address]Dr. Sandi Michelle Methodology: Comment Normal [facility] Comment on above: Result Comment: This liquid based ThinPrep(R) pap test was screened with the use of an image guided system. Performed at: WB Performed By: #### 4 [id number] ####[facility] [address] [place], [place] [address]Dr. Sandi Michelle Note: Comment Normal [facility] Comment on above: Result Comment: The Pap smear is a screening test designed to aid in the detection of premalignant and malignant conditions of the uterine cervix. It is not a diagnostic procedure and should not be used as the sole means of detecting cervical cancer. Both false-positive and false-negative reports do occur. . Performed at: WB Performed By: #### 4 [id number] ####[facility] [address] [place], [place] [address]Dr. Sandi Michelle Performed by: Comment Normal [facility] Comment on above: Result Comment: Vikas Mcclellan, Formula Bottler (ASCP) Performed at: WB Performed By: #### 4 [id number] ####[facility] [address] [place], [place] [address]Dr. Sandi Michelle Specimen adequacy: Comment Normal [facility] Comment on above: Result Comment: Sati sfactory for evaluation. No endocervical component is identified. Performed at: WB Performed By: #### 4 [id number] ####[facility] [address] [place], [place] [address]Dr. Sandi Michelle VAGINITIS/VAGINOSIS DNA PROB Nicholas 02-03-2022 Kaitlynn species Negative Normal Negative [facility] Comment on above: Performed By: #### V AGINT ####[facility] [address] [place], [place] [address]Dr. Sandi Michelle Gardnerella vaginalis Negative Normal Negative [facility] Comment on above: Performed By: #### V AGINT ####[facility] [address] [place], [place] [address]Dr. Sandi Michelle Trichomonas vaginalis Negative Normal Negative [facility] Comment on above: Performed By: #### V AGINT ####[facility] [address] [place], [place] [address]SxDen Sandi Miguel Angel US PREG ANATOMY SINGLEon [...] Date: 2022-02-01 19:32 Normal [facility] AFP MATERNAL FOR SPINA BIFID Aon 01-21-2022 AFP MoM 1.24 Normal [facility] Comment on above: Performed By: #### A FPMAT ####[facility] [address] [place], [place] [address]MjDen Michelle AFP Value 55.2 ng/mL Normal [facility] Comment on above: Performed By: #### A FPMAT ####[facility] [address] [id number]. Sandi Michelle AFP, Serum for Spina Bifida Report Normal [facility] Comment on above: Performed By: #### A FPMAT ####[facility] [address] [address]Dr. Sandi Michelle Comment Comment Normal [facility] Comment on above: Result Comment: Iesha Sullivan, Ph.D., [facility] Director . References: Available Upon Request. . Multiples Of Median Cutoffs For AFP Elevations Bhandari 2.5 Black 2.8 IDD 2.0 Twins 4.5 Abbreviation Definitions IDD - Insulin Dep Diabetes OSBR - Open Spina Bifida Risk . For further inquiries contact [facility] at [phone]. . This test was developed and its performance characteristics determined by [employer]. It has not been cleared or approved by the Food and Drug Administration. Performed By: #### A FPMAT ####[facility] [address] [id number]. Sandi Michelle Gest Age Collection Date 18.1 weeks Normal [facility] Comment on above: Performed By: #### A FPMAT ####[facility] [address] [address]Dr. Sandi Michelle Gestat, Age Based on JOSE Normal [facility] Comment on above: Result Comment: 05/26 Recalculations are not recommended when gestational dating by LMP and ultrasound are within 10 days. Performed By: #### A FPMAT ####[facility] [address] [id number]. Sandi Michelle Insulin Dep Diabetes Comment Normal [facility] Comment on above: Result Comment: Not provided. . Performed By: #### A FPMAT ####[facility] [address] [id number]. Sandi Michelle Interpretation Comment Normal [facility] Comment on above: Result Comment: Inte rpretation: [...] Customer Services to discuss available options. The [place] [employer] recommends amniocentesis be offered to women age 35 and older. Performed By: #### A FPMAT ####[facility] [address] [id number]. Sandi Michelle [age] Normal [facility] Comment on above: Performed By: #### A FPMAT ####[facility] [address] [address]Dr. Sandi Michelle Multiple Gestation No Normal [facility] Comment on above: Performed By: #### A FPMAT ####[facility] [address] [address]Dr. Sandi Michelle OSBR Risk 1 IN 5748 Normal [facility] Comment on above: Performed By: #### A FPMAT ####[facility] [address] [address]Dr. Sandi Michelle PDF . Normal [facility] Comment on above: Performed By: #### A FPMAT ####[facility] [address] [id number]. Sandi Michelle Race Normal [facility] Comment on above: Performed By: #### A FPMAT ####[facility] [address] [id number]. Sandi Michelle Test Results: Negative Normal [facility] Comment on above: Performed By: #### A FPMAT ####[facility] [address] [address]Dr. Sandi Michelle HEP B SURFACE ANTIGEN SCREEN on 11-22-2021 HBsAg Screen Negative Normal Negative [facility] Comment on above: Performed By: #### H BSANS ####[facility] [address] [address]Dr. Sandi Michelle HEPATITIS C VIRUS AB W/ REFL EX QUANTon 11-22-2021 HCV AB 0.1 s/co ratio Normal 0.0-0.9 [facility] Comment on above: Performed By: #### C BC #### [facility] [address] [address] [address] Sandi Michelle Interpretation: Comment Normal [facility] Comment on above: Result Comment: Nega tive Not infected with HCV, unless recent infection is suspected or other evidence exists to indicate HCV infection. Performed By: #### C BC #### [facility] [address] [address] [address] Sandi Michelle HIV 1 AND 2 WITH REFLEXon HIV Screen 4th Generation wRfx Non-Reactive Normal Non Reactive [facility] Comment on above: Result Comment: HIV Negative HIV-1/HIV-2 antibodies and HIV-1 p24 antigen were NOT detected. There is no laboratory evidence of HIV infection. Performed By: #### H IV12 ####[facility] [address] [address]Dr. Sandi Mihcelle RPR QUANTon 11-22-2021 Rapid Plasma Reagin, Quant Non-Reactive Normal NonRea<1:1 [facility] Comment on above: Result Comment: Plea se Note: This test does not meet current guidelines for screening and diagnosis of syphilis. This test is intended for following treatment response in patients being treated for syphilis infection. To screen for syphilis infection, a reflex cascade that includes both RPR and a treponema-specific assay should be utilized, such as Treponema pallidum (Syphilis) Screening Crum Lynne (363660) or Rapid Plasma Reagin (RPR) Test With Reflex to Quantitative RPR and Confirmatory Treponema pallidum Antibodies (823378). Performed By: #### C BC #### [facility] [address] [place] [address] Dr. Sandi Michelle RUBELLA AB IGGon 11-22-2021 Rubella Antibodies, IgG 9.33 index Normal Immune >0.99 [facility] Comment on above: Result Comment: Non- immune <0.90 Equivocal 0.90 - 0.99 Immune >0.99 Performed By: #### C BC #### [facility] [address] [address] [address] Sandi Michelle CBC AUTO DIFFon 11-21-2021 BASO # 0.0 103/ul Normal 0.0-0.1 [facility] Comment on above: Performed By: #### C BC #### [facility] [address] [address] [address] Sandi Michelle Basophils/100 WBC (Bld) 0.4 % Normal 0.2-2.0 [facility] Comment on above: Performed By: #### C BC #### [facility] [address] [place] [address] Dr. Sandi Michelle EO # 0.1 103/ul Normal 0.0-0.7 [facility] Comment on above: Performed By: #### C BC #### [facility] [address] [place] [address] Dr. Sandi Michelle Eosinophils/100 WBC (Bld) 0.6 % Critically low 0.9-7.0 [facility] Comment on above: Performed By: #### C BC #### [facility] [address] [place] [address] Dr. Sandi Michelle Erythrocyte distribution width (RBC) [Ratio] 11.9 % Normal 11.0-15.0 [facility] Comment on above: Performed By: #### C BC #### [facility] [address] [place] [address] Dr. Sandi Michelle Hematocrit (Bld) [Volume fraction] 37.1 % Normal 36.0-48.0 [facility] Comment on above: Performed By: #### C BC #### [facility] [address] [place] [address] Dr. Sandi Michelle Hemoglobin (Bld) [Mass/Vol] 12.2 g/dL Normal 12.0-16.0 [facility] Comment on above: Performed By: #### C BC #### [facility] [address] [place] [address] Dr. Sandi Michelle IG # 0.03 10e3/ul Normal 0.00-0.03 [facility] Comment on above: Performed By: #### C BC #### [facility] [address] [place] [address] Dr. Sandi Michelle IG % 0.4 % Normal 0.0-0.5 [facility] Comment on above: Performed By: #### C BC #### [facility] [address] [place] [address] Dr. Sandi Michelle LYMPH # 1.8 103/ul Normal 1.2-3.8 [facility] [facility] Comment on above: Performed By: #### C BC #### [facility] [address] [place] [address] Dr. Sandi Michelle Lymphocytes/100 WBC (Bld) 23.4 % Normal 20.5-60.0 [facility] Comment on above: Performed By: #### C BC #### [facility] [address] [place] [address] Dr. Sandi Michelle MANUAL DIFF REQ NO Normal [facility] Comment on above: Performed By: #### C BC #### [facility] [address] [place] [address] Dr. Sandi Michelle MCH (RBC) [Entitic mass] 31.4 pg Normal 26.7-34.0 [facility] Comment on above: Performed By: #### C BC #### [facility] [address] [place] [address] Dr. Sandi Michelle MCHC (RBC) [Mass/Vol] 32.9 g/dL Normal 29.9-35.2 [facility] Comment on above: Performed By: #### C BC #### [facility] [address] [place] [address] Dr. Sandi Michelle MCV (RBC) [Entitic vol] 95.6 fL Normal 81.0-99.0 [facility] Comment on above: Performed By: #### C BC #### [facility] [address] [place] [address] Dr. Sandi Michelle MONO # 0.5 103/ul Normal 0.3-0.8 [facility] Comment on above: Performed By: #### C BC #### [facility] [address] [place] [address] Dr. Sandi Michelle Monocytes/100 WBC (Bld) 6.6 % Normal 1.7-12.0 [facility] Comment on above: Performed By: #### C BC #### [facility] [address] [place] [address] Dr. Sandi Michelle NEUT # 5.4 103/ul Normal 1.4-6.5 [facility] Comment on above: Performed By: #### C BC #### [facility] [address] [place] [address] Dr. Sandi Michelle Neutrophils/100 WBC (Bld) 68.6 % Normal 43.0-75.0 [facility] Comment on above: Performed By: #### C BC #### [facility] [address] [place] [address] Dr. Sandi Michelle Platelet mean volume (Bld) [Entitic vol] 10.1 fL Normal 9.5-13.5 [facility] Comment on above: Performed By: #### C BC #### [facility] [address] [place] [address] Dr. Sandi Michelle PLT 237 103/ul Normal 150-450 [facility] Comment on above: Performed By: #### C BC #### [facility] [address] [place] [address] Dr. Sandi Michelle RBC 3.88 106/ul Critically low 4.20-5.40 [facility] Comment on above: Performed By: #### C BC #### [facility] [address] [place] [address] Dr. Sandi Michelle WBC 7.9 103/ul Normal 4.0-11.0 [facility] Comment on above: Performed By: #### C BC #### [facility] [address] [place] [address] Dr. Sandi Michelle CULTURE URINEon 11-21-2021 CULTURE URINE Culture Observations : LIGHT GROWTH OF MIXED GENITAL MENDEZ. NO POTENTIAL PATHOGENS SEEN. Normal [facility] Comment on above: Performed By: #### U RCX #### [facility] [address] [address] [address] Sandi Michelle GLYCOHEMOGLOBIN A1Con 2021 ADA RECOMMENDATION SEE BELOW Normal [facility] Comment on above: Result Comment: ADA RECOMMENDED LIMIT 4.0 - 6.0 ADA THERAPEUTIC TARGET < 7.0 ACTION SUGGESTED > 7.0 Performed By: #### A 1C ####[facility] [address] [address]Dr. Sandi Michelle Glucose [Mass/Vol] 103 mg/dL Normal [facility] Comment on above: Performed By: #### A 1C ####[facility] [address] [address]Dr. Sandi Michelle HbA1c (Bld) [Mass fraction] 5.2 % Normal 4.5-6.2 [facility] Comment on above: Performed By: #### A 1C ####[facility] [address] [address]Dr. Sandi Michelle TYPE AND SCREENon 11-21-2021 TYPE AND SCREEN Negative Normal [facility] Comment on above: Performed By: #### T NS #### [facility] [address] [address] [address] Sandi Michelle US PREG TVon 11-03-2021 [...] Date: 2021-11-03 07:19 Normal [facility] PREG QUANT HCGon 10-14-2021 HCG QUANT 469 mIU/mL Normal [facility] Comment on above: Performed By: #### P REGQNT #### [facility] [address] [place], [place] [address] Dr. Sandi Michelle HCG RANGE SEE BELOW Normal [facility] Comment on above: Result Comment: 5-50 0-1 WEEK 40-300 1-2 WEEKS 100-1,000 2-3 WEEKS 500-6,000 3-4 WEEKS 5,000-200,000 1-2 MONTHS 10,000-100,000 2-3 MONTHS 3,000-50,000 2ND TRIMESTER 1,000-50,000 3RD TRIMESTER Performed By: #### P REGQNT #### [facility] [address] [place], [place] [address] Dr. Sandi Michelle PREG QUANT HCGon 10-12-2021 HCG QUANT 184 mIU/mL Normal [facility] Comment on above: Performed By: #### C BC #### [facility] [address] [place], [place] [address] Dr. Sandi Michelle HCG RANGE SEE BELOW Normal [facility] Comment on above: Result Comment: 5-50 0-1 WEEK 40-300 1-2 WEEKS 100-1,000 2-3 WEEKS 500-6,000 3-4 WEEKS 5,000-200,000 1-2 MONTHS 10,000-100,000 2-3 MONTHS 3,000-50,000 2ND TRIMESTER 1,000-50,000 3RD TRIMESTER Performed By: #### C BC #### [facility] [address] [place], [place] [address] Dr. Sandi Michelle PROTEIN C FUNC ACTIVITYon Prt C Activity (Chromogenic) 130 % Normal [facility] Comment on above: Result Comment: Refe rence Range: 17 years and older: 73 - 180 Effective August 10, 2021 Prt C Activity, (Chromogenic) will be made non-orderable. This will not affect any profile that includes Prt C Activity (Chromogenic). [facility] offers [id number] Protein C Functional. For more information please contact your local [facility] Rv Servicer. Performed By: #### P RCACT ####[facility] [address] [id number]. Sandi Michelle FACTOR V LEIDEN MUTATION CIARAN LYSISon 07-27-2021 Factor V Leiden Comment Normal [facility] Comment on above: Result Comment: Resu lt: c.1601G>A (p.[id number]) - Not Detected . This result is not associated with an increased risk for venous thromboembolism. See Additional Clinical Information and Comments. Additional Clinical Information: Venous thromboembolism is a multifactorial disease influenced by genetic, environmental, and circumstantial risk factors. The c.1601G>A (p. Tbq894Cev) variant in the F5 gene, commonly referred [...] c.*97G>A variant and Factor V Leiden (PMID: 58828223). Additional risk factors include but are not [...] health care providers to discuss results at [phone] ([phone]). . Test Details: Variant Analyzed: c.1601G>A (p. Jtr173Cqb), referred to as Factor V Leiden . [...] developed and its performance characteristics determined by [employer]. It has not been cleared or approved by the Food and Drug Administration. . References: Masoud S, Hawa GUTIÉRREZ, Randy R, Moses WW, Luis A JH; ACMG Professional Practice and Guidelines Committee. Addendum: [employer] consensus statement on factor V Leiden mutation testing. [place] [employer]. 2020Sep 26. doi: 10.1038/i16172-309-18501-p. PMID: 54052322. . Miriam GAMING. Factor V Leiden Thrombophilia. 1998December 05 [Updated 2017Jul 28]. In: Jv MP, Delia HH, Ian RA, et al., editors. Jovita(R) [Internet]. [place] ([place]): [facility]; 8476-1745. Available from: https://www.ncbi.nlm.nih.gov/books/YTP2153/ . Jonh S, Hawa GUTIÉRREZ, Francisco Javier X, Leobardo B, Ash EB, Deysi P, Mari CS; A[employer]G Laboratory Icicle Machine Operator Committee. Venous thromboembolism laboratory testing (factor V Leiden and factor II c.*97G>A), 2018 update: a technical standard of the [employer] and [employer] (ACMG). [employer] 2018 Jun;20(12):2208-2278. doi: 10.1038/[id number]-h. Epub 2017Apr 28. PMID: 08846655. . Martha Guillen, PhD, FACMG Lindsay Jaquez, PhD, FACMG Pete Brown, PhD, FACMG Geronimo Mcdaniel, PhD, FACMG Norm Hays, PhD, FACMG Maureen Mancilla, PhD, FACMG Performed By: #### F [facility] ####[id number] [place], [place] [address]Xk. Sanid Miguel Angel ANTITHROMBIN ACTIVITYon - Antithrombin Activity 102 % Normal 75-135 [facility] Comment on above: Result Comment: Dire ct Xa inhibitor anticoagulants such as rivaroxaban, apixaban and edoxaban will lead to spuriously elevated antithrombin activity levels possibly masking a deficiency. Performed By: #### C BC #### [facility] [address] [address] [address] Sandi Michelle B-2 GLYCOPROTEIN AB IGGon Beta-2 Glycoprotein I Ab, IgG <9 Normal 0-20 [facility] Comment on above: Result Comment: The reference interval reflects a 3SD or 99th percentile interval, which is thought to represent a potentially clinically significant result in accordance with the International Consensus Statement on the classification criteria for definitive antiphospholipid syndrome (APS). J Thromb Haem 2006;4:295-306. Performed By: #### B 2GPG ####[facility] [address] [address]Dr. Sandi Michelle B2-GLYCOPROTEIN 1 AB IGMon 0 07-25-2021 Beta-2 Glycoprotein I Ab, IgM <9 Normal 0-32 [facility] Comment on above: Result Comment: The reference interval reflects a 3SD or 99th percentile interval, which is thought to represent a potentially clinically significant result in accordance with the International Consensus Statement on the classification criteria for definitive antiphospholipid syndrome (APS). J Thromb Haem 2006;4:295-306. Performed By: #### B GLYIGM ####[facility] [address] [address]Dr. Sandi Michelle LUPUS ANTICOAGULANT W/REFLEX on 07-24-2021 aPTT Coag (Bld) [Time] 30.9 s Normal 0.0-51.9 [facility] Comment on above: Performed By: #### L UPUSRF ####[facility] [address] [address]Dr. Sandi Michelle dRVVT 33.0 sec Normal 0.0-47.0 [facility] Comment on above: Performed By: #### L UPUSRF ####[facility] [address] [address]Dr. Sandi Michelle Interpretation Comment: Normal [facility] Comment on above: Result Comment: No l upus anticoagulant was detected. Performed By: #### L UPUSRF ####[facility] [address] [address]Dr. Sandi Michelle PROTEIN S ANTIGENon 07-24-20 21 Protein S, Free 104 % Normal 61-136 [facility] Comment on above: Performed By: #### P RTSAG ####[facility] [address] [address]Dr. Sandi Michelle Protein S, Total 90 % Normal 60-150 [facility] Comment on above: Result Comment: This test was developed and its performance characteristics determined by [facility]. It has not been cleared or approved by the Food and Drug Administration. Performed By: #### P RTSAG ####[facility] [address] [address]Dr. Sandi Michelle PROTEIN S, FUNCTIONALon 06-26 Protein S-Functional 107 % Normal 63-140 [facility] Comment on above: Result Comment: Prot ein S activity may be falsely increased (masking an abnormal, low result) in patients receiving direct Xa inhibitor (e.g., rivaroxaban, apixaban, edoxaban) or a direct thrombin inhibitor (e.g., dabigatran) anticoagulant treatment due to assay interference by these drugs. Performed By: #### C BC #### [facility] [address] [place] [address] Dr. Sandi Michelle ANTICARDIOLIPIN AB (JEANIE) IGG on 07-23-2021 Anticardiolipin Ab,IgG,Qn <9 Normal 0-14 [facility] Comment on above: Result Comment: Nega tive: <15 Indeterminate: 15 - 20 Low-Med Positive: >20 - 80 High Positive: >80 Performed By: #### C ARDLIP #### [facility] [address] [place] [address] Dr. Sandi Michelle ANTICARDIOLIPIN AB (JEANIE) IGM on 07-23-2021 Anticardiolipin Ab,IgM,Qn 12 MPL U/mL Normal 0-12 [facility] Comment on above: Result Comment: Nega tive: <13 Indeterminate: 13 - 20 Low-Med Positive: >20 - 80 High Positive: >80 Performed By: #### C [facility] ####[facility] [address] [place], [place] [address]NgDen Michelle Vital Signs Date Time Vital Sign Value Performing Clinician Facility 09-12-2024 14:53-0500 Body mass index (BMI) [Ratio] 30.02 kg/m2 Lee Keyona DO Work Phone: [facility] 09-12-2024 14:53-0500 Body weight 84.37 kg Lee Keyona DO Work Phone: [facility] 09-12-2024 14:53-0500 Diastolic blood pressure 70 mm[Hg] Lee Keyona DO Work Phone: [facility] 09-12-2024 14:53-0500 Systolic blood pressure 120 mm[Hg] Lee Keyona DO Work Phone: [facility] 08-29-2024 15:30-0500 Body mass index (BMI) [Ratio] 29.92 kg/m2 Lee Keyona DO Work Phone: [facility] 08-29-2024 15:30-0500 Body weight 84.1 kg Lee Keyona DO Work Phone: [facility] 08-29-2024 15:30-0500 Diastolic blood pressure 70 mm[Hg] Lee Keyona DO Work Phone: [facility] 08-29-2024 15:30-0500 Systolic blood pressure 120 mm[Hg] Lee Keyona DO Work Phone: [facility] 08-09-2024 09:39-0500 Body mass index (BMI) [Ratio] 30.18 kg/m2 Lee Keyona DO Work Phone: [facility] 08-09-2024 09:39-0500 Body weight 84.82 kg Lee Keyona DO Work Phone: [facility] 08-09-2024 09:39-0500 Diastolic blood pressure 64 mm[Hg] Lee Keyona DO Work Phone: [facility] 08-09-2024 09:39-0500 Systolic blood pressure 114 mm[Hg] Lee Keyona DO Work Phone: [facility] 07-12-2024 09:59-0500 Body mass index (BMI) [Ratio] 29.39 kg/m2 Lee Keyona DO Work Phone: [facility] 07-12-2024 09:59-0500 Body weight 82.61 kg Lee Keyona DO Work Phone: [facility] 07-12-2024 09:59-0500 Diastolic blood pressure 68 mm[Hg] Lee Keyona DO Work Phone: [facility] 07-12-2024 09:59-0500 Systolic blood pressure 108 mm[Hg] Lee Keyona DO Work Phone: [facility] 06-11-2024 16:44-0500 Body mass index (BMI) [Ratio] 28.59 kg/m2 Lee Keyona DO Work Phone: [facility] 06-11-2024 16:44-0500 Body weight 80.34 kg Lee Keyona DO Work Phone: [facility] 06-11-2024 16:44-0500 Diastolic blood pressure 70 mm[Hg] Lee Keyona DO Work Phone: [facility] 06-11-2024 16:44-0500 Systolic blood pressure 108 mm[Hg] Lee Keyona DO Work Phone: [facility] 05-08-2024 15:11-0400 Body mass index (BMI) [Ratio] 27.76 kg/m2 Lee Keyona DO Work Phone: [facility] 05-08-2024 15:11-0400 Body weight 78.02 kg Lee Keyona DO Work Phone: [facility] 05-08-2024 15:11-0400 Diastolic blood pressure 70 mm[Hg] Lee Keyona DO Work Phone: [facility] 05-08-2024 15:[id number] Systolic blood pressure 112 mm[Hg] Lee Keyona DO Work Phone: [facility] 04-05-2024 14:24-0400 Body mass index (BMI) [Ratio] 27.76 kg/m2 [facility] 04-05-2024 14:040 Body weight 78.02 kg [facility] 04-05-2024 14:24040 Diastolic blood pressure 68 mm[Hg] [facility] 04-05-2024 14:040 Systolic blood pressure 118 mm[Hg] [facility] Nurse [facility] 01-21-2022 03:060400 Body weight 72.[address] LEE RAND [facility] Comment on above: Performed By: #### A FPMAT ####[facility] [address] [address]Dr. Sandi Michelle Encounters Encounter Date Encounter Type Care Provider Facility Start: 09-12-2024 End: 09-12-2024 flow sheet Lee Keyona DO Work Phone: [facility] Comment on above: 31 weeks gestation o f ; Third trimester Start: 09-12-2024 End: 09-12-2024 ambulatory LEE KEYONA Not Available Start: 09-12-2024 End: 09-12-2024 Clinisync Result Encounter Lee Keyona DO Work Phone: [facility] External Department Unsolicited Start: 09-12-2024 End: 09-12-2024 Clinisync Result Encounter Lee Keyona DO Work [...] Bamboo flowsheet Lee Keyona DO Work Phone: [facility] Start: 08-09-2024 End: 08-09-2024 flow [...] Bamboo flowsheet Lee Keyona DO Work Phone: [facility] Start: 07-12-2024 End: 07-12-2024 Bamboo flowsheet Lee Keyona DO Work Phone: [facility] Start: 07-12-2024 End: 07-12-2024 flow sheet Lee Keoyna DO Work Phone: [facility] Comment [...] 8w5d Start: 01-02-2024 End: 01-02-2024 ambulatory LEE KEYNOA Not Available Start: 12-29-2023 End: 12-29-2023 ambulatory [...] RAND Facility:[facility] Start: 11-05-[address] LEE ARND Facility :[facility] Start: 11-02-2021 End: 11-03-[address] LEE RAND Facility:[facility] Start: 10-12-2021 End: 10-22-[address] LEE RAND Facility:[facility] Start: 07-22-2021 End: 07-23-[address] LEE RAND Facility:[facility] Procedures Date Procedure Procedure Detail Performing Clinician Start: 09-12-2024 Urnls dip stick/tabl et rgnt non-auto w/o micrscp Lee Keyona DO Work Phone: Start: 09-12-2024 US OB BPP W NON-STRESS Lee Keyona DO Work Phone: Start: 09-05-2024 US OB BPP W NON-STRESS [...] Routine [facility] [address] [place] [phone] Lee Rand, DO [address] [place] [address] [facility] Start: 08-29-2024 End: 08-29-2024 Patient encounter procedure [facility] Comment on above: Arrived Start: 08-29-2024 End: 08-29-2025 US biophysical profile w non stress test US biophysical profile w non stress test Imaging Routine Diet controlled gestational diabetes mellitus (GDM) in third trimester Expected: 08/29/2024 (Approximate), Expires: 08/29/2025 [facility] Work Phone: Comment on above: Expected: 08/29/2024 (Approximate), Expires: 08/29/2025 Start: 08-09-2024 End: 08-09-2024 Patient encounter procedure 08/09/2024 9:10 AM EST Routine [facility] [address] [facility] [place] [phone] Lee Rand, DO [address] [place] [address] [facility] Start: 07-31-2024 End: 07-31-2024 Patient encounter procedure 07/31/2024 1:00 PM EST Office Visit [facility] [address] [place] [phone] Lee Rand, DO [address] [place], [place] [id number] [facility] Start: 07-12-2024 End: 07-12-2025 CBC panel - Blood by Automated count CBC Lab Routine Diabetes mellitus screening Expected: 07/12/2024 (Approximate), Expires: 07/12/2025 [facility] Work Phone: Comment on above: Expected: 07/12/2024 (Approximate), Expires: 07/12/2025 Start: 07-12-2024 End: 07-12-2025 Measurement of glucose 1 hour after glucose challenge for glucose tolerance test Glucose tolerance, 1 hour Lab Routine Diabetes mellitus screening Expected: 07/12/2024 (Approximate), Expires: 07/12/2025 [facility] Comment on above: Expected: 07/12/2024 (Approximate), Expires: 07/12/2025 Start: 07-12-2024 End: 07-12-2024 Patient encounter procedure [facility] Comment on above: Arrived Start: 06-11-2024 End: 06-11-2024 Patient encounter procedure 06/11/2024 3:50 PM EST Routine [facility] [address] [place] [phone] Lee Rand DO [address] [facility] [address] [place] [address] [facility] Start: 06-11-2024 End: 12-09-2024 Alpha fetoprotein, maternal Alpha fetoprotein, maternal Lab Routine Second trimester Expected: 06/11/2024 (Approximate), Expires: 12/09/2024 [facility] Comment on above: Expected: 06/11/2024 [...] Missed menses Expected: 04/05/2024 (Approximate), Expires: 04/05/2025 [facility] Comment on above: Expected: 04/05/2024 (Approximate), [...] gestational age Expected: 04/05/2024 (Approximate), Expires: 04/05/2025 [facility] Comment on above: Expected: 04/05/2024 (Approximate), Expires: 04/05/2025 Start: 04-05-2024 End: 04-05-2025 US Pelvis transvaginal US OB transvaginal Imaging Routine Missed menses Expected: 04/05/2024 (Approximate), Expires: 04/05/2025 [facility] Comment on above: Expected: 04/05/2024 (Approximate), Expires: 04/05/2025 Bacteria identified in Urine by Culture Urine culture Microbiology Routine Missed menses Ordered: 04/05/2024 [facility] Comment on above: Ordered: 04/05/2024 CBC W Auto Different ial panel - Blood CBC and differential Lab Routine Missed menses Ordered: 04/05/2024 [facility] Comment on above: Ordered: 04/05/2024 CHLAMYDIA TRACHOMATI S (GENITO/STI) CHLAMYDIA TRACHOMATIS (GENITO/STI) Lab Routine STD exposure Ordered: 06/11/2024 [facility] Comment on above: Ordered: 06/11/2024 Hemoglobin A1c/Hemoglobin.total in Blood Hemoglobin A1c Lab Routine Missed menses Ordered: 04/05/2024 [facility] Comment on above: Ordered: 04/05/2024 Hepatitis B virus surface Ag [Presence] in Serum or Plasma by Immunoassay Hepatitis B surface antigen Lab Routine Missed menses Ordered: 04/05/2024 [facility] Comment on above: Ordered: 04/05/2024 Hepatitis C virus Ab [Presence] in Serum or Plasma by Immunoassay Hepatitis C antibody Lab Routine Missed menses Ordered: 04/05/2024 [facility] Comment on above: Ordered: 04/05/2024 HIV-1/HIV-2 antigen/antibody combination immunoassay HIV-1 and HIV-2 antibodies Lab Routine Missed menses Ordered: 04/05/2024 [facility] Comment on above: Ordered: 04/05/2024 Neisseria gonorrhoea e DNA [Presence] in Unspecified specimen by ALETHEA with probe detection Neisseria gonorrhea DNA probe, direct Lab Routine STD exposure Ordered: 06/11/2024 [facility] Comment on above: Ordered: 06/11/2024 Reagin Ab [Presence] in Serum by RPR RPR Lab Routine Missed menses Ordered: 04/05/2024 [facility] Comment on above: Ordered: 04/05/2024 Rubella antibody, IgG Rubella an tibody, IgG Lab Routine Missed menses Ordered: 04/05/2024 [facility] Comment on above: Ordered: 04/05/2024 SURESWAB(R) ADVANCED VAGINITIS PLUS, TMA SURESWAB(R) ADVANCED VAGINITIS PLUS, TMA Pathology and Cytology Routine Vaginal discharge Ordered: 06/11/2024 [facility] Work Phone: Comment on above: Ordered: 06/11/2024 Payers Date Payer Category Payer Private Health Insurance [employer] [id number] 2024 Unknown [id number] 2020 Managed Care O (unspecified) [id number] 1991 Unknown [id number] 2.16.840.1.470284.3.579.2. 59 1991 Unknown [id number] 2.16.840.1.769898.3.579.2. 593 1991 Unknown [id number] 2.16.840.1.943610.3.579.2. 593 1991 Unknown [id number] 2.16.840.1.226133.3.579.2. 593 1991 Unknown [id number] 2.16.840.1.560318.3.579.2. 593 1991 Unknown [id number] 2.16.840.1.257589.3.579.2. 593 1991 Unknown [id number] 2.16.840.1.502556.3.579.2. 593 1991 Unknown [id number] 2.16.840.1.308377.3.579.2. 593 1991 Unknown [id number] 2.16.840.1.158075.3.579.2. 593 1991 Unknown [id number] 2.16.840.1.922341.3.579.2. 593 1991 Unknown [id number] 2.16.840.1.980923.3.579.2. 593 1991 Unknown [id number] 2.16.840.1.762469.3.579.2. 593 1991 Unknown [id number] 2.16.840.1.632477.3.579.2. 593 1991 Unknown [id number] 2.16.840.1.703166.3.579.2. 593 1991 Unknown [id number] 2.16.840.1.529987.3.579.2. 593 1991 Unknown [id number] 2.16.840.1.728719.3.579.2. 593 1991 Unknown [id number] 2.16.840.1.061118.3.579.2. 593 1991 Unknown [id number] 2.16.840.1.784946.3.579.2. 593 1991 Unknown [id number] 2.16.840.1.232641.3.579.2. 593 1991 Unknown [id number] 2.16.840.1.202770.3.579.2. 593 1991 Unknown [id number] 2.16.840.1.434719.3.579.2. 593 1991 Unknown [id number] 2.16.840.1.951414.3.579.2. 1259 1991 Unknown [id number] 2.16.840.1.044696.3.579.2. 9 1991 Unknown [id number] 2.16.840.1.626199.3.579.2. 9 1991 Unknown [id number] 2.16.840.1.039662.3.579.2. 9 1991 Unknown [id number] 2.16.840.1.264195.3.579.2. 9 1991 Unknown [id number] 2.16.840.1.183301.3.579.2. 1259 1991 Unknown [id number] 2.16.840.1.480946.3.579.2. 9 1991 Unknown [id number] 2.16.840.1.457248.3.579.2. 9 1991 Unknown [id number] 2.16.840.1.786663.3.579.2. 1259 1959 Private Health Insurance [id number] Social History Date Type Detail Facility Start: 02-08-2023 Tobacco smoking stat [facility] Never smoked tobacco [facility] Start: 02-08-2023 Tobacco use and exposure Smokeless t obacco non-user [facility] Start: 04-05-2024 End: 09-12-2024 Alcoholic beverage intake Lifetime non-drinker (finding) [facility] Start: 07-19-2023 End: 01-02-2024 History of Social function [facility] Start: 07-19-2023 End: 01-02-2024 Tobacco use panel [facility] Start: 02-18-2024 [facility] Start: 1990 Sex assigned at Female [facility] Start: 02-06-2023 Gender identity Identifies as female gender (finding) [facility] Start: 02-06-2023 Sexual orientation Heterosexual (tatiana carlos) [facility] Medical Equipment Procedure Code Equipment Code Equipment Origin al Text Equipment Identifier Dates 1 strip by In Vi tro route Daily Use in the morning prior to breakfast, 1 hour after each meal for a total of 4times daily. [id number] Start: 08-09-2024 End: 09-12-2024 1 each by In Vit ro route Daily Use to check FSBS four times daily [id number] Start: 08-09-2024 End: 09-12-2024 Goals Date Patient Goal Desired Activity /State Personal health goal Clinical Notes 06-04-2022 to 09-12-2024 Tere Hu, [facility] - 09/12/2024 2:30 PM David Hu, [facility] - 08/29/2024 3:20 PM ESTSusachirag Spitletiff, [facility] - 08/09/2024 9:10 AM ESTSusan Spitler, [facility] - 07/12/2024 9:50 AM EST Note Date & Type Note Facility 09-12-2024 History of Presen t illness Narrative Reason for Appointment: Patient ID: Anna Law is a 34 y.o. female who presents for No chief complaint on file. Patient presents today for Return OB appointment. [...] nursing note reviewed. Exam conducted with a seal extrusion operator present. Vitals: Estimated body mass index is 30.02 kg/m as calculated from the following: Height as of 01/02/24: 5' 6 . Weight as of this encounter: 186 lb. BP: 120/70 Patient's last menstrual period was 02/04/2024. ASSESSMENT & PLAN ICD-10-CM 1. 31 weeks gestation of Z3A.31 POCT urinalysis dipstick manually resulted 2. Third trimester Z34.93 POCT urinalysis dipstick manually resulted Return OB: Patient presents today for a routine obstetrics appointment. Patient is currently 31w4d . Patient states she is doing well but has complaints of being tired due to current . Patient has verbalizes frequent movement. labor precautions was discussed/given and patient was instructed to perform kick counts three times a day. Orders Placed This Encounter Procedures POCT urinalysis dipstick manually resulted Follow Up: Patient is to return to office in 2 week for routine OB appointment. Documented by Tere Hu LPN on behalf of: Lee Rand DO documented in this encounter [facility] 08-29-2024 History of Presen t illness Narrative [...] Grandmother Isis Cannon Hypertension Paternal Grandmother Isis Davis SURGICAL HISTORY [...] nursing note reviewed. Exam conducted with a seal extrusion operator present. Vitals: Estimated body mass index is [...] for routine OB appointment. Documented by Tere uH LPN on behalf of: Lee Rand DO documented in this encounter [facility] 08-09-2024 History of Presen t [...] Paternal Grandmother December Davis Hypertension Paternal Grandmother Isis Davis SURGICAL [...] nursing note reviewed. Exam conducted with a seal extrusion operator present. Vitals: Estimated body mass index is [...] Lee Rand DO documented in this encounter [facility] 07-12-2024 History of Presen t [...] nursing note reviewed. Exam conducted with a seal extrusion operator present. Vitals: Estimated body mass index is [...] with patient and she is scheduled with [facility] for confirmation of complete placenta previa. Patient to return to clinic in 4 weeks for routine OB. Documented by Miranda Parsons LPN on behalf of: Lee Rand DO documented in this encounter [facility] 06-11-2024 History of Presen t [...] nursing note reviewed. Exam conducted with a seal extrusion operator present. Vitals: Estimated body mass index is [...] Lee Rand DO documented in this encounter [facility] 05-08-2024 History of Presen t [...] Grandfather Boshellie Albright Cancer Paternal Grandmother [facility]is [facility] Paternal Grandmother Isis [facility] Hypertension Paternal Grandmother Isis [facility] SURGICAL HISTORY Past Surgical History: Procedure Laterality [...] nursing note reviewed. Exam conducted with a seal extrusion operator present. Vitals: Estimated body mass index is [...] meat, and stay away from [facility]. Patient has been consulted regarding any further do's and don'ts of . Patient voiced understanding and all questions and concerns were answered. Orders Placed This Encounter Procedures POCT urinalysis dipstick manually resulted Follow Up: Patient is to return in 4 weeks for routine OB appointment. Documented by Tere Hu LPN on behalf of: Lee Rand DO documented in this encounter [facility] 04-05-2024 History of Presen t [...] meat, and stay away from [facility]. Patient has also been advised to not [...] by: Janis Hylton documented in this encounter [facility] 06-04-2022 Note OPERATIVE NOTE OPERATION DATE: 06/04/2022 PROCEDURE: Primary low transverse section. PREOPERATIVE DIAGNOSIS: 1. Intrauterine at 37 5/7 weeks. 2. Breech presentation. POSTOPERATIVE DIAGNOSIS: 1. Intrauterine at 37 5/7 weeks. 2. Breech presentation. 3. 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 SURGEON: Lee Rand RAILWAY SIGNAL ELECTRICIAN: SCARLET Albert URINE OUTPUT: Yellow and clear. [...] Room in stable condition. [facility] Evaluation note Diagnosis 13 weeks gestation [...] third trimester [facility] Diagnosis 31 weeks gestation of Third trimester state, incidental documented in this encounter [facility] Summary Purpose Family History No Family History Records FoundNo Family History Records Found Advance Directives No Advanced Directives Records FoundNo Advanced Directives Records Found Additional Source Comments INFORMATION SOURCE (unrecogn ized section and content) DATE CREATED AUTHOR 06/14/2022 [facility] DATE CREATED AUTHOR AUTHOR'S ORGANIZ ATION 09/14/2024 [facility] EPIC Care Teams (unrecognized sec tion and content) [employer] Relationship Specialty Start Date End Date Fito Cueto MD [address] [place] [address] PCP - General Family Medicine 02/09/23 [employer] Relationship Specialty Start Date End Date Fito Cueto MD [address] [place] [address] PCP - General Family Medicine 02/09/23 [employer] Relationship Specialty Start Date End Date Fito Cueto MD [address] [place] [address] PCP - General Family Medicine 02/09/23 [employer] Relationship Specialty Start Date End Date Fito Cueto MD [address] [place] [address] PCP - General Family Medicine 02/09/23 [employer] Relationship Specialty Start Date End Date Fito Cueto MD [address] [place] [id number] PCP - General Family Medicine 02/09/23 [employer] Relationship Specialty Start Date End Date Fito Cueto MD [address] [place] [address] PCP - General Family Medicine 02/09/23 [employer] Relationship Specialty Start Date End Date Fito Cueto MD [address] [place] [address] PCP - General Family Medicine 02/09/23 [employer] Relationship Specialty Start Date End Date Fito Cueto MD [address] [place] [address] PCP - General Family Medicine 02/09/23 [employer] Relationship Specialty Start Date End Date Fito Cueto MD [address] [place] [address] PCP - General Family Medicine 02/09/23 [employer] Relationship Specialty Start Date End Date Fito Cueto MD [address] [place] [address] PCP - General Family Medicine 02/09/23 [employer] Relationship Specialty Start Date End Date Fito Cueto MD [address] [place] [address] PCP - General Family Medicine 02/09/23 [employer] Relationship Specialty Start Date End Date Fito Cueto MD [address] [place] [address] PCP - General Family Medicine 02/09/23 Reason [...] BE BASED ON THE PRIMARY CLINICAL RECORDS. [facility]. provides no warranty or guarantee of the accuracy or completeness of information in this document.
--- NOTE | 2024-09-18 18:56 | US_ITS ---
[address] [address] Patient Name: RUBÉN MACDONALD MRN: [facility]:[id number] date: 1990 Sex: F Assigned Patient Location: US Current Patient Location: Accession/Order Number: [id number] Exam Date: 09/18/2024 22:52 Report Date: 09/18/2024 22:56 At the request of: MELINDA FREDERICK DO Procedure: US OB BPP w non-stress Biophysical profile. Reason for exam: Diet-controlled gestational diabetes. COMPARISON: BPP 09/12/2024. Technique: Transabdominal imaging of the gravid uterus was obtained. FINDINGS: Cctv Technician reports the BPP is 8 out of 8. JAS is normal at 14.3 cm. heart rate 135 bpm. US/US OB BPP w non-stress IMPRESSION: BPP 8 out of 8. Impression dictated by: Pete Engle Jr., D.O.09/18/2024 10:56 PM [facility]ation [facility] Electronically authenticated by: [id number] Y Date: 09/18/2024 22:56
== END 2024-09-18 20:35 | disposition home or self-care (01) ==
LOC: US 18:49 → FBC 19:27
PROVIDERS: Visit Provider Obstetrics & Gynecology
DX: O24.410 Gestational diabetes mellitus in pregnancy, diet controlled (principal); Z3A.00 Weeks of gestation of pregnancy not specified
CPT/HCPCS: 76818

== ENCOUNTER 2024-09-21 00:13 | Outpatient (OUT) | payer OTHER, SELFPAY ==
--- OUTSIDE RECORDS SUMMARY | 2024-09-21 00:17 | XMS_ITS | CCD ---
Author Organization [facility] Care Team Providers Care [employer] Director Name Role Phone KEYONA, DR LAWRENCE Admitting [...] KEYONA, DR LAWRENCE Consulting Unavailable KEYONA, DR LAWRECNE Admitting Unavailable KEYONA, DR LAWRENCE Attending Unavailable [...] Admitting Unavailable KEYONA, DR LAWRENCE Attending Unavailable GOIVANA, DR AVI Velarde Primary Care Unavail able [...] Attending Unavailable TELLY, DR PENNINGTON Consulting Unavailable ONAWAY, DR RIGO Medina Consulting Unavailable KEYONA, DR [...] / HYDROcodone Drug Allergy [facility] Repository Medications Current Medications Medication Drug Class(es) Dates Sig (Normalized) Sig (Original) aspirin 81 mg delayed release oral tablet (7 sources) Platelet Aggregation Inhibitor, Nonsteroidal Anti-inflammatory Drug take 1 tablet by mouth once daily aspirin 81 MG EC tablet Take 81 mg by mouth Daily Active Blood Glucose Monitoring Suppl (D-Care Glucometer) w/Device kit (10 sources) Start: 08-09-2024 End: 08-09-2025 Blood Glucose [...] Active isopropyl alcohol 0.7 ml/ml medicated pad (10 sources) Start: 08-09-2024 Alcohol Swabs (Alcohol Prep [...] weeks; Translations: [31 weeks gestation of ] 02-19-2025 Episodic Unclassified (1 source) CONTACT W/AND (SUSP) [...] Range Facility OB BPP W NON-STRESS on 09-18-2024 [place] [address] Ultrasound Report Signed Patient: ANNA LAW MR#: [id number] : 1990 Acct:[id number] Age/Sex: 34 / F ADM Date: 09/18/24 Loc: US Attending Dr: Lee Rand D.O. Ordering Physician: Lee Rand D.O. Date of Service: 09/18/24 Procedure(s): US OB BPP w non-stress Accession Number(s): [id number] cc: Lee Rand D.O.; Physician,Non-Staff MJuan Alberto The [address] [address] Patient Name: ANNA LAW MRN: [facility]:[id number] date: 1990 Sex: F Assigned Patient Location: US Current Patient Location: Accession/Order Number: [id number] Exam Date: 09/18/2024 22:52 Report Date: 09/18/2024 22:56 At the request of: LEE RAND DO Procedure: US OB BPP w non-stress Biophysical profile. Reason for exam: Diet-controlled gestational diabetes. COMPARISON: BPP 09/12/2024. Technique: Transabdominal imaging of the gravid uterus was obtained. FINDINGS: Electrologist reports the BPP is 8 out of 8. JAS is normal at 14.3 cm. heart rate 135 bpm. US/US OB BPP w non-stress IMPRESSION: BPP 8 out of 8. Impression dictated by: Pete Engle Jr., D.O.09/18/2024 10:56 PM Dictation Location: [place] [address] Electronically authenticated by: [id number] Y Date: 09/18/2024 22:56 Dictated By: Pete Engle M.D. Signed By: 09/18/242257 DD/ 55 TD/TT: Freight Car Builder: [facility] Radiology, Radiologist, MD - 09/18/2024 [place] [address] Ultrasound Report Signed Patient: ANNA LAW MR#: [id number] : 1990 Acct:[id number] Age/Sex: 34 / F ADM Date: 09/18/24 Loc: US Attending Dr: Lee Rand D.O. Ordering Physician: Lee Rand D.O. Date of Service: 09/18/24 Procedure(s): US OB BPP w non-stress Accession Number(s): [id number] cc: Lee Rand D.O.; Physician,Non-Staff Aguilar The [place] [id number] Patient Name: ANNA LAW MRN: [facility]:[id number] date: 1990 Sex: F Assigned Patient Location: US Current Patient Location: Accession/Order Number: [id number] Exam Date: 09/18/2024 22:52 Report Date: 09/18/2024 22:56 At the request of: LEE RAND DO Procedure: US OB BPP w non-stress Biophysical profile. Reason for exam: Diet-controlled gestational diabetes. COMPARISON: BPP 09/12/2024. Technique: Transabdominal imaging of the gravid uterus was obtained. FINDINGS: Electrologist reports the BPP is 8 out of 8. JAS is normal at 14.3 cm. heart rate 135 bpm. US/US OB BPP w non-stress IMPRESSION: BPP 8 out of 8. Impression dictated by: Pete Engle Jr., D.O.09/18/2024 10:56 PM Dictation Location[facility] Electronically authenticated by: [id number] Y Date: 09/18/2024 22:56 Dictated By: Pete Engle M.D. Signed By: 09/18/242257 DD/ 55 TD/TT: Freight Car Builder: [facility] [employer] Radiology Study observation (narrative) [facility] US OB BPP W NON-STRESS Ordered By: Radiologist Radiology on 09-18-2024 [facility] [employer] Work Phone: US OB BPP W NON-STRESS on 09-12-2024 [place] [address] Ultrasound Report Signed Patient: ANNA LAW MR#: [id number] : 1990 Acct:[id number] Age/Sex: 34 / F ADM Date: 09/11/24 Loc: US Attending Dr: Lee Rand D.O. Ordering Physician: Lee Rand D.O. Date of Service: 09/11/24 Procedure(s): US OB BPP w non-stress Accession Number(s): [id number] cc: Lee Rand D.O.; Physician,Non-Staff MJuan Alberto The [place] [id number] Patient Name: ANNA LAW MRN: [facility]:[id number] date: 1990 Sex: F Assigned Patient Location: [facility] Current Patient Location: Accession/Order Number: [id number] Exam Date: 09/12/2024 09:01 Report Date: 09/12/2024 [...] 31 weeks 3 days. The heart rate [id number] beats per minute. FINDINGS: TONE: 1 or [...] Tere Munoz M.D.09/12/2024 9:04 AM Dictation Location: [place] [address] Electronically authenticated by: [id number] Y Date: 09/12/2024 09:04 Dictated By: Tere Munoz M.D. Signed By: 09/12/24905 DD/ 3 TD/TT: Freight Car Builder: [facility] Radiology, Radiologist, - 09/12/[address] [address] Ultrasound Report Signed Patient: ANNA LAW MR#: [id number] : 1990 Acct:[id number] Age/Sex: 34 / F ADM Date: 09/11/24 Loc: US Attending Dr: Lee Rand D.O. Ordering Physician: Lee Rand D.O. Date of Service: 09/11/24 Procedure(s): US OB BPP w non-stress Accession Number(s): [id number] cc: Lee Rand D.O.; Physician,Non-Staff [place] [address] Patient Name: ANNA LAW MRN: [facility]:[id number] date: 1990 Sex: F Assigned Patient Location: [facility] Current Patient Location: Accession/Order Number: [id number] Exam Date: 09/12/2024 09:01 Report Date: 09/12/2024 [...] 31 weeks 3 days. The heart rate [id number] beats per minute. FINDINGS: TONE: 1 or [...] Tere Munoz M.D.09/12/2024 9:04 AM Dictation Location: [facility] Electronically authenticated by: [id number] Y Date: 09/12/2024 09:04 Dictated By: Tere Munoz M.D. Signed By: 09/12/24905 DD/ 3 TD/TT: Freight Car Builder: [facility] Radiology Study observation (narrative) [facility] US OB BPP W NON-STRESS Ordered By: Radiologist Radiology on 09-12-2024 [facility] Work Phone: Urinalysis macro (dipstick) panel (U)on 09-12-2024 Bilirubin, UA Negative Negative - 4(70) +++ mg/dL [facility] Blood, UA Negative Negative - 50 Yang/mcL [facility] Clarity, UA Clear [facility] Color, UA Yellow [facility] Glucose, UA Negative Negative - 2000(110) ++++ mg/dL [facility] Interpretation and review of laboratory results Abnormal [facility] Ketones, UA Positive Negative - 160(16) ++++ mg/dL [facility] Comment on above: trace Leukocytes, UA Negative Negative - 500+++ Derik/mcL [facility] Nitrite, UA Negative Negative - Positive [facility] pH, UA 7 5 - 9 [facility] Protein, UA Trace Negative - 2000(20) ++++ mg/dL [facility] Spec Grav, UA 1.02 1 - 1.03 [facility] Urobilinogen, UA 0.2 0.2 - 12 mg/dL [facility] US OB BPP W NON-STRESS on 09-05-2024 [place] [address] Ultrasound Report Signed Patient: ANNA LAW MR#: [id number] : 1990 Acct:[id number] Age/Sex: 34 / F ADM Date: 09/04/24 Loc: US Attending Dr: Lee Rand D.O. Ordering Physician: Lee Rand D.O. Date of Service: 09/04/24 Procedure(s): US OB BPP w non-stress Accession Number(s): [id number] cc: Lee Rand D.O.; Physician,Non-Staff M.DDen The [address] [address] Patient Name: ANNA ALW MRN: [id number] date: 1990 Sex: F Assigned Patient Location: [facility] Current Patient Location: Accession/Order Number: [id number] Exam Date: 09/04/2024 18:52 Report Date: 09/05/2024 [...] Signed By: 09/05/24 0555 DD/ 0553 TD/TT: Freight Car Builder: [facility] Radiology, Radiologist, MD - 09/05/2024 [place] [address] Ultrasound Report Signed Patient: ANNA LAW MR#: [id number] : 1990 Acct:[id number] Age/Sex: 34 / F ADM Date: 09/04/24 Loc: US Attending Dr: Lee Rand D.O. Ordering Physician: Lee Rand D.O. Date of Service: 09/04/24 Procedure(s): US OB BPP w non-stress Accession Number(s): [id number] cc: Lee Rand D.O.; Physician,Non-Staff MJuan Alberto The [address] [address] Patient Name: ANNA LAW MRN: [facility]:[id number] date: 1990 Sex: F Assigned Patient Location: [facility] Current Patient Location: Accession/Order Number: [id number] Exam Date: 09/04/2024 18:52 Report Date: 09/05/2024 [...] Signed By: 09/05/24 0555 DD/ 0553 TD/TT: Freight Car Builder: [facility] Radiology Study observation (narrative) [facility] US OB BPP W NON-STRESS Ordered By: Radiologist Radiology on 09-05-2024 [facility] Work Phone: Urinalysis macro (dipstick) panel (U)on 08-29-2024 Bilirubin, UA Negative Negative - 4(70) +++ mg/dL [facility] Blood, UA Positive Negative - 50 Yang/mcL [facility] Comment on above: trace-intact Clarity, UA Clear [facility] Color, UA Yellow [facility] Glucose, UA Negative Negative - 2000(110) ++++ mg/dL [facility] Interpretation and review of laboratory results Abnormal [facility] Ketones, UA Positive Negative - 160(16) ++++ mg/dL [facility] Comment on above: 40 Leukocytes, UA Trace Negative - 500+++ Derik/mcL [facility] Nitrite, UA Negative Negative - Positive [facility] pH, UA 5.5 5 - 9 [facility] Protein, UA Trace Negative - 2000(20) ++++ mg/dL [facility] Spec Grav, UA 1.025 1 - 1.03 [facility] Urobilinogen, UA 1.0 0.2 - 12 mg/dL [facility] GLUCOSE TOLERANCE 3 HOURon 0 07-28-2024 GLUCOSE TOLERANCE 3 HOUR High mg/dL [facility] Comment on above: GLU FAST 87 (<95) Co l: 07/28/24 0638 GLU 1HR 199H (<180) Col: 07/28/24 0739 GLU 2HR 173H (<155) Col: 07/28/24 0839 GLU 3HR 94 (<140) Col: 07/28/24 0939 Interpretation and review of laboratory results Abnormal [facility]SE 1 HOURon 07-21-2024 Glucose [Mass/Vol] 154 mg/dL High NINF - 13 0 mg/dL [facility] Interpretation and review of laboratory results Abnormal [facility] Urinalysis macro (dipstick) panel (U)on 07-12-2024 Bilirubin, UA Negative Negative - 4(70) +++ mg/dL [facility] Blood, UA Negative Negative - 50 Yang/mcL [facility] Clarity, UA Clear [facility] Color, UA Yellow [facility] Glucose, UA Negative Negative - 2000(110) ++++ mg/dL [facility] Interpretation and review of laboratory results Normal [facility] Ketones, UA Negative Negative - 160(16) ++++ mg/dL [facility] Leukocytes, UA Negative Negative - 500+++ Derik/mcL [facility] Nitrite, UA Negative Negative - Positive [facility] pH, UA 7 5 - 9 [facility] Protein, UA Negative Negative - 2000(20) ++++ mg/dL [facility] Spec Grav, UA 1.02 1 - 1.03 [facility] Urobilinogen, UA 1.0 0.2 - 12 mg/dL [facility] AFP, SERUM, OPEN SPINA BIFID Aon 07-04-2024 AFP MOM 1.60 . [facility] AFP VALUE 91.9 ng/mL . [facility] COMMENT: Comment . [facility] Comment on above: Sonia Sullivan , Ph.D., [facility] Director References: Available Upon Request. Multiples Of Median Cutoffs For AFP Elevations Bhandari 2.5 Black 2.8 IDD 2.0 Twins 4.5 Abbreviation Definitions IDD - Insulin Dep Diabetes OSBR - Open Spina Bifida Risk For further inquiries contact [employer] at [phone]. This test was developed and its performance characteristics determined by [employer]. It has not been cleared or approved by the Food and Drug Administration. Performed at: - [facility] [address] [facility] [facility] [facility], [place], [place] [id number] Diesel Mechanic: Francis Boyd [facility], Phone: [phone] GEST. AGE ON COLLECTION DATE 21.0 . weeks [facility] GESTAT. AGE BASED ON LMP . [facility] Comment on above: Recalculations are n ot recommended when gestational dating by LMP and ultrasound are within 10 days. INSULIN DEP DIABETES No . [facility] INTERPRETATION Comment . [facility] Comment on above: Interpretation: Scre en [...] Customer Services to discuss available options. The [employer] recommends amniocentesis be offered to women age 35 and older. [age] [facility] MULTIPLE GESTATION No . [facility] OSBR RISK 1 IN 2100 . [facility] RACE . [facility] RESULTS Report . [facility] TEST RESULTS: Negative . [facility] WEIGHT 177 . lbs [facility] N LMP [id number] 2 18 N 1 Y 177 [address] N White/ [facility] RECURRENT VAGINITIS (HTRX)on 06-13-2024 ATOPOBIUM VAGINAE 30.301 Abnormal [facility] ATOPOBIUM VAGINAE Detected Abnormal [facility] BVAB 2,3 (BACTERIAL VAGINOSIS ASSOCIATED BACTERIA 2, 3); MOBILUNCUS SPP 0 [facility] BVAB 2,3 (BACTERIAL VAGINOSIS ASSOCIATED BACTERIA 2, 3); MOBILUNCUS SPP Not detected [facility] KAITLYNN ALBICANS, PARAPSILOSIS, TROPICALIS 0 [facility] KAITLYNN ALBICANS, PARAPSILOSIS, TROPICALIS Not detected [facility] KAITLYNN GLABRATA 0 [facility] KAITLYNN GLABRATA Not detected [facility] KAITLYNN KRUSEI 0 [facility] KAITLYNN KRUSEI Not detected [facility] CHLAMYDIA TRACHOMATIS 0 [facility] CHLAMYDIA TRACHOMATIS Not detected [facility] GARDNERELLA VAGINALIS 21.1 Abnormal [facility] GARDNERELLA VAGINALIS Detected Abnormal [facility] Interpretation and review of laboratory results Abnormal [facility] MEGASPHAERA (TYPES 1, 2) 0 [facility] MEGASPHAERA (TYPES 1, 2) Not detected [facility] MYCOPLASMA GENITALIUM 0 [facility] MYCOPLASMA GENITALIUM Not detected [facility] NEISSERIA GONORRHOEAE 0 [facility] NEISSERIA GONORRHOEAE Not detected [facility] TRICHOMONAS VAGINALIS 0 [facility] TRICHOMONAS VAGINALIS Not detected [facility] Urinalysis macro (dipstick) panel (U)on 06-11-2024 Bilirubin, UA Negative Negative - 4(70) +++ mg/dL [facility] Blood, UA Negative Negative - 50 Yang/mcL [facility] Clarity, UA Clear [facility] Color, UA Yellow [facility] Glucose, UA Negative Negative - 1999(110) ++++ mg/dL [facility] Interpretation and review of laboratory results Normal [facility] Ketones, UA Negative Negative - 160(16) ++++ mg/dL [facility] Leukocytes, UA Negative Negative - 500+++ Derik/mcL [facility] Nitrite, UA Negative Negative - Positive [facility] pH, UA 5.5 5 - 9 [facility] Protein, UA Negative Negative - 1999(20) ++++ mg/dL [facility] Spec Grav, UA 1.02 1 - 1.03 [facility] Urobilinogen, UA 1.0 0.2 - 12 mg/dL [facility] Urinalysis macro (dipstick) panel (U)on 05-08-2024 Bilirubin, UA Negative Negative - 4(70) +++ mg/dL [facility] Blood, UA Positive Negative - 50 Yang/mcL [facility] Comment on above: trace-intact Clarity, UA Clear [facility] Color, UA Yellow [facility] Glucose, UA Negative Negative - 1999(110) ++++ mg/dL [facility] Interpretation and review of laboratory results Abnormal [facility] Ketones, UA Negative Negative - 160(16) ++++ mg/dL [facility] Leukocytes, UA Negative Negative - 500+++ Derik/mcL [facility] Nitrite, UA Negative Negative - Positive [facility] pH, UA 6 5 - 9 [facility] Protein, UA Negative Negative - 1999(20) ++++ mg/dL [facility] Spec Grav, UA 1.025 1 - 1.03 [facility] Urobilinogen, UA 0.2 0.2 - 12 mg/dL [facility] ALL CBC WITH AUTO DIFFon BASOPHILS ABSOLUTE AUTO 0.0 [facility] Basophils/100 WBC (Bld) 0.4 % 0.2 - 2.0 % [facility] Eosinophils/100 WBC (Bld) 0.9 % 0.9 - 7.0 % [facility] Erythrocyte distribution width (RBC) [Ratio] 11.9 % 11.0 - 15.0 % [facility] Hematocrit (Bld) [Volume fraction] 37.1 % 36.0 - 48.0 % [facility] Hemoglobin (Bld) [Mass/Vol] 12.6 g/dL 12.0 - 16.0 g/dL [facility] IMMATURE GRANULOCYTES ABS AUTO 0.03 [facility] Immature granulocytes/100 WBC (Bld) 0.4 % 0.0 - 0.5 % [facility] Interpretation and review of laboratory results Abnormal [facility] LYMPHOCYTES ABSOLUTE AUTO 1.7 [facility] Lymphocytes/100 WBC (Bld) 21.2 % 20.5 - 60.0 % [facility] MCH (RBC) [Entitic mass] 31.7 pg 26.7 - 34.0 pg [facility] MCHC (RBC) [Mass/Vol] 34.0 g/dL 29.9 - 35.2 g/dL [facility] MCV (RBC) [Entitic vol] 93.5 fL 81.0 - 99.0 fL [facility] MONOCYTES ABSOLUTE AUTO 0.6 [facility] Monocytes/100 WBC (Bld) 6.8 % 1.7 - 12.0 % [facility] NEUTROPHILS ABSOLUTE AUTO 5.7 [facility] Neutrophils/100 WBC (Bld) 70.3 % 43.0 - 75.0 % [facility] Platelet mean volume (Bld) [Entitic vol] 9.8 fL 9.5 - 13.5 fL [facility] TBH EO # 0.1 [facility] TBH PLT 219 [facility] TB RBC 3.97 Low [facility] TB WBC 8.1 [facility] HCG ( test) Ql (U)o n 04-05-2024 Interpretation and review of laboratory results Abnormal [facility] Preg Test, Ur Positive [facility] Urinalysis macro (dipstick) panel (U)on 04-05-2024 Bilirubin, UA Negative Negative - 4(70) +++ mg/dL [facility] Blood, UA Positive Negative - 50 Yang/mcL [facility] Comment on above: trace intact Clarity, UA Clear [facility] Color, UA Yellow [facility] Glucose, UA Negative Negative - 2000(110) ++++ mg/dL [facility] Interpretation and review of laboratory results Abnormal [facility] Ketones, UA Negative Negative - 160(16) ++++ mg/dL [facility] Leukocytes, UA Trace Negative - 500+++ Derik/mcL [facility] Nitrite, UA Negative Negative - Positive [facility] pH, UA 6.5 5 - 9 [facility] Protein, UA Negative Negative - 2000(20) ++++ mg/dL [facility] Spec Grav, UA 1.015 1 - 1.03 [facility] Urobilinogen, UA 0.2 0.2 - 12 mg/dL [facility] CBC AUTO DIFFon 06-05-2022 BASO # 0.0 103/ul Normal 0.0-0.1 [facility] Comment on above: Performed By: #### C BC #### [facility] [address] [place] [address] [address] Sandi Michelle Basophils/100 WBC (Bld) 0.2 % Normal 0.2-2.0 [facility] Comment on above: Performed By: #### C BC #### [facility] [address] [place] [address] [address] Sandi Michelle EO # 0.0 103/ul Normal 0.0-0.7 [facility] Comment on above: Performed By: #### C BC #### [facility] [address] [place] [address] [address] Sandi Michelle Eosinophils/100 WBC (Bld) 0.2 % Critically low 0.9-7.0 [facility] Comment on above: Performed By: #### C BC #### [facility] [address] [place] [address] [address] Sandi Michelle Erythrocyte distribution width (RBC) [Ratio] 14.3 % Normal 11.0-15.0 [facility] Comment on above: Performed By: #### C BC #### [facility] [address] [place] [address] Dr. Sandi Michelle Hematocrit (Bld) [Volume fraction] 27.3 % Critically low 36.0-48.0 [facility] Comment on above: Performed By: #### C BC #### [facility] [address] [place] [address] Dr. Sandi Michelle Hemoglobin (Bld) [Mass/Vol] 9.3 g/dL Critically low 12.0-16.0 [facility] Comment on above: Result Comment: DELI VERY Performed By: #### C BC #### [facility] [address] [place] [address] Dr. Sandi Michelle IG # 0.14 10e3/ul Critically high 0.00-0.03 [facility] Comment on above: Performed By: #### C BC #### [facility] [address] [place] [address] Dr. Sandi Michelle IG % 1.1 % Critically high 0.0-0.5 [facility] Comment on above: Performed By: #### C BC #### [facility] [place] [facility] [address] [place] [address] Dr. Sandi Michelle LYMPH # 1.6 103/ul Normal 1.2-3.8 [facility] Comment on above: Performed By: #### C BC #### [facility] [place] [facility] [address] [place] [address] Dr. Sandi Michelle Lymphocytes/100 WBC (Bld) 12.1 % Critically low 20.5-60.0 [facility] Comment on above: Performed By: #### C BC #### [facility] [place] [facility] [address] [place] [address] Dr. Sandi Michelle MANUAL DIFF REQ NO Normal [facility] Comment on above: Performed By: #### C BC #### [facility] [place] [facility] [address] [place] [address] Dr. Sandi Michelle MCH (RBC) [Entitic mass] 31.8 pg Normal 26.7-34.0 [facility] Comment on above: Performed By: #### C BC #### [facility] [place] [facility] [address] [address] [address] Sandi Michelle MCHC (RBC) [Mass/Vol] 34.1 g/dL Normal 29.9-35.2 [facility] Comment on above: Performed By: #### C BC #### [facility] [place] [facility] [address] [address] [address] Sandi Michelle MCV (RBC) [Entitic vol] 93.5 fL Normal 81.0-99.0 [facility] Comment on above: Performed By: #### C BC #### [facility] [place] [facility] [address] [address] [address] Sandi Michelle MONO # 0.9 103/ul Critically high 0.3-0.8 [facility] Comment on above: Performed By: #### C BC #### [facility] [place] [facility] [address] [address] [address] Sandi Michelle Monocytes/100 WBC (Bld) 6.8 % Normal 1.7-12.0 [facility] Comment on above: Performed By: #### C BC #### [facility] [place] [facility] [address] [address] [address] Sandi Michelle NEUT # 10.3 103/ul Critically high 1.4-6.5 [facility] Comment on above: Performed By: #### C BC #### [facility] [place] [facility] [address] [address] [address] Sandi Michelle Neutrophils/100 WBC (Bld) 79.6 % Critically high 43.0-75.0 [facility] Comment on above: Performed By: #### C BC #### [facility] [place] [facility] [address] [address] [address] Sandi Michelle Platelet mean volume (Bld) [Entitic vol] 9.8 fL Normal 9.5-13.5 [facility] Comment on above: Performed By: #### C BC #### [facility] [place] [facility] [address] [address] [address] Sandi Michelle PLT 138 103/ul Critically low 150-450 [facility] Comment on above: Performed By: #### C BC #### [facility] [place] [facility] [address] [address] [address] Sandi Michelle RBC 2.92 106/ul Critically low 4.20-5.40 [facility] Comment on above: Performed By: #### C BC #### [facility] [place] [facility] [address] [address] [address] Sandi Michelle WBC 12.9 103/ul Critically high 4.0-11.0 [facility] Comment on above: Performed By: #### C BC #### [facility] [address] [place] [address] Dr. Sandi Michelle CBC AUTO DIFFon 06-04-2022 BASO # 0.0 103/ul Normal 0.0-0.1 [facility] Comment on above: Performed By: #### C BC #### [facility] [address] [place] [address] Dr. Sandi Michelle Basophils/100 WBC (Bld) 0.3 % Normal 0.2-2.0 [facility] Comment on above: Performed By: #### C BC #### [facility] [address] [place] [address] Dr. Sandi Michelle EO # 0.0 103/ul Normal 0.0-0.7 [facility] Comment on above: Performed By: #### C BC #### [facility] [address] [place] [address] Dr. Sandi Michelle Eosinophils/100 WBC (Bld) 0.1 % Critically low 0.9-7.0 [facility] Comment on above: Performed By: #### C BC #### [facility] [address] [place] [address] Dr. Sandi Michelle Erythrocyte distribution width (RBC) [Ratio] 14.4 % Normal 11.0-15.0 [facility] Comment on above: Performed By: #### C BC #### [facility] [address] [place] [address] Dr. Sandi Michelle Hematocrit (Bld) [Volume fraction] 37.2 % Normal 36.0-48.0 [facility] Comment on above: Performed By: #### C BC #### [facility] [address] [address] [address] Sandi Michelle Hemoglobin (Bld) [Mass/Vol] 12.9 g/dL Normal 12.0-16.0 [facility] Comment on above: Performed By: #### C BC #### [facility] [address] [place] [address] Dr. Sandi Michelle IG # 0.23 10e3/ul Critically high 0.00-0.03 [facility] Comment on above: Performed By: #### C BC #### [facility] [address] [place] [address] Dr. Sandi Michelle IG % 1.6 % Critically high 0.0-0.5 [facility] Comment on above: Performed By: #### C BC #### [facility] [address] [place] [address] Dr. Sandi Michelle LYMPH # 2.3 103/ul Normal 1.2-3.8 [facility] Comment on above: Performed By: #### C BC #### [facility] [address] [place] [address] Dr. Sandi Michelle Lymphocytes/100 WBC (Bld) 16.0 % Critically low 20.5-60.0 [facility] Comment on above: Performed By: #### C BC #### [facility] [address] [place] [address] Dr. Sandi Michelle MANUAL DIFF REQ NO Normal [facility] Comment on above: Performed By: #### C BC #### [facility] [address] [place] [address] Dr. Sandi Michelle MCH (RBC) [Entitic mass] 32.3 pg Normal 26.7-34.0 [facility] Comment on above: Performed By: #### C BC #### [facility] [address] [place] [address] Dr. Sandi Michelle MCHC (RBC) [Mass/Vol] 34.7 g/dL Normal 29.9-35.2 [facility] Comment on above: Performed By: #### C BC #### [facility] [place] [facility] [address] [address] [address] Sandi Michelle MCV (RBC) [Entitic vol] 93.0 fL Normal 81.0-99.0 [facility] Comment on above: Performed By: #### C BC #### [facility] [address] [address] [address] Sandi Michelle MONO # 0.8 103/ul Normal 0.3-0.8 [facility] Comment on above: Performed By: #### C BC #### [facility] [address] [address] [address] Sandi Michelle Monocytes/100 WBC (Bld) 5.8 % Normal 1.7-12.0 [facility] Comment on above: Performed By: #### C BC #### [facility] [place] [facility] [address] [address] [address] Sandi Michelle NEUT # 10.7 103/ul Critically high 1.4-6.5 [facility] Comment on above: Performed By: #### C BC #### [facility] [place] [facility] [address] [address] [address] Sandi Michelle Neutrophils/100 WBC (Bld) 76.2 % Critically high 43.0-75.0 [facility] Comment on above: Performed By: #### C BC #### [facility] [address] [place] [address] Dr. Sandi Michelle Platelet mean volume (Bld) [Entitic vol] 10.9 fL Normal 9.5-13.5 [facility] Comment on above: Performed By: #### C BC #### [facility] [place] [facility] [address] [address] [address] Sandi Michelle PLT 194 103/ul Normal 150-450 [facility] Comment on above: Performed By: #### C BC #### [facility] [address] [place] [address] Dr. Sandi Michelle RBC 4.00 106/ul Critically low 4.20-5.40 [facility] Comment on above: Performed By: #### C BC #### [facility] [place] [facility] [address] [address] [address] aSndi Michelle WBC 14.0 103/ul Critically high 4.0-11.0 [facility] Comment on above: Performed By: #### C BC #### [facility] [place] [facility] [address] [address] [address] Sandi Michelle [facility]on 05-25 SARS-CoV-2 (COVID-19) RNA ALETHEA+probe Ql (Unsp spec) Not detected Normal NOT DETECTED [facility] Comment on above: Result Comment: When diagnostic [...] for this test is supported by the Health Lead of Health and Human Service's declaration that [...] Performed By: #### C VDTBH ####[facility] [address] [address]. Sandi Michelle DRUG SCREEN RAPID (URINE)on 06-04-2022 AMP Negative Normal NEGATIVE The [facility] Comment on above: Performed By: #### D RUGRPD ####[facility] [address] [place], [place] [address]Bt. Sandi Michelle BAR Negative Normal NEGATIVE The [facility] Comment on above: Performed By: #### D RUGRPD ####[facility] [address] [place], [place] [address]KzDen Michelle BUP Negative Normal NEGATIVE The [facility] Comment on above: Performed By: #### D RUGRPD ####[facility] [address] [place], [place] [address]Dr. Sandi Michelle BZO Negative Normal NEGATIVE The [facility] Comment on above: Performed By: #### D RUGRPD ####[facility] [address] [place], [place] [address]Dr. Sandi Michelle NINO Negative Normal NEGATIVE The [facility] Comment on above: Performed By: #### D RUGRPD ####[facility] [address] [place], [place] [address]Dr. Sandi Michelle CUT-OFFS SEE BELOW Normal [facility] Comment on above: Result Comment: [...] Performed By: #### D RUGRPD ####[facility] [address] [place], [place] [address]Dr. Sandi Michelle DRUG CUT HEADER DRUG CLASS TEST SYSTEM CUT-OFF CONCENTRATIONS ARE FOLLOWS: Normal [facility] Comment on above: Performed By: #### D RUGRPD ####[facility] [address] [place], [place] [address]Dr. Sandi Michelle mAMP Negative Normal NEGATIVE The [facility] Comment on above: Performed By: #### D RUGRPD ####[facility] [address] [place], [place] [address]Dr. Sandi Michelle MTD Negative Normal NEGATIVE The [facility] Comment on above: Performed By: #### D RUGRPD ####[facility] [address] [place], [place] [address]Dr. Sandi Michelle OPI Negative Normal NEGATIVE The [facility] Comment on above: Performed By: #### D RUGRPD ####[facility] [address] [id number]. Sandi Michelle OXY Negative Normal NEGATIVE The [facility] Comment on above: Performed By: #### D RUGRPD ####[facility] [address] [id number]. Sandi Michelle PCP Negative Normal NEGATIVE [facility] Comment on above: Performed By: #### D RUGRPD ####[facility] [address] [address]Dr. Sandi Michelle PPX Negative Normal NEGATIVE [facility] Comment on above: Performed By: #### D RUGRPD ####[facility] [address] [address]Dr. Sandi Michelle TCA Negative Normal NEGATIVE The [facility] Comment on above: Performed By: #### D RUGRPD ####[facility] [address] [address]Dr. Sandi Michelle THC Negative Normal NEGATIVE The [facility] Comment on above: Performed By: #### D RUGRPD ####[facility] [address] [address]Dr. Sandi Michelle TYPE AND SCREENon 06-04-2022 TYPE AND SCREEN Negative Normal [facility] Comment on above: Performed By: #### T NS ####[facility] [place] [address] [place], [place] [address]Dr. Sandi Michelle US PREG BIOPHY W NON [...] authenticated by: RIGO FISCHER Date: 2022-05-30 08:30 [facility] GROUP B STREP CULTUREon 11-0 S. agalactiae Ag Ql (Unsp spec) Culture Observations: NEGATIVE FOR GROUP B STREPTOCOCCUS. Normal [facility] Comment on above: Performed By: #### G BSCX ####[facility] [address] [place], [place] [address]TzDen Michelle US PREG BIOPHY W NON STRESSo [...] RIGO FISCHER Date: 2022-05-23 09:41 Normal [facility] US PREG BIOPHY W NON [...] by: RIGO FISCHER Date: 2022-05-16 16:10 Normal [facility] US PREG GROWTHon 05-11-2022 US PREG GROWTH EXAMINATION: US PREG GROWTH, US PREG CERVICAL LENGTH HISTORY: Excessive growth affecting management of mother COMPARISON: Ultrasound growth 04/27/2022 FINDINGS: Heart Rate: 137.8 bpm (accession [id number]), 167.3 bpm (accession [id number]) Number: 1.0 Position: BREECH Amniotic Fluid Volume: [...] by: TIFF BAUMANN Date: 2022-05-11 19:19 Normal [facility] US PREG GROWTHon 04-27-2022 US [...] by: TIFF BAUMANN Date: 2022-04-27 20:51 Normal The [facility] GLUCOSE - 1HRon 03-15-2022 Glucose [Mass/Vol] 137 mg/dL Critically high 74-[address] [facility] Comment on above: Performed By: #### C BC #### [facility] [address] [place] [address] Dr. Sandi Michelle HEMOGRAM AND PLATELon 2021 Hematocrit (Bld) [Volume fraction] 34.9 % Critically low 36.0-48.0 [facility] Comment on above: Performed By: #### C BC #### [facility] [address] [place] [address] Dr. Sandi Michelle Hemoglobin (Bld) [Mass/Vol] 11.5 g/dL Critically low 12.0-16.0 [facility] Comment on above: Performed By: #### C BC #### [facility] [address] [place] [address] Dr. Sandi Michelle MCH (RBC) [Entitic mass] 31.8 pg Normal 26.7-34.0 [facility] Comment on above: Performed By: #### C BC #### [facility] [address] [place] [address] Dr. Sandi Michelle MCHC (RBC) [Mass/Vol] 33.0 g/dL Normal 29.9-35.2 [facility] Comment on above: Performed By: #### C BC #### [facility] [address] [place] [address] Dr. Sandi Michelle MCV (RBC) [Entitic vol] 96.4 fL Normal 81.0-99.0 [facility] Comment on above: Performed By: #### C BC #### [facility] [address] [place] [address] Dr. Sandi Michelle PLT 225 103/ul Normal 150-450 [facility] Comment on above: Performed By: #### C BC #### [facility] [address] [place] [address] Dr. Sandi Michelle RBC 3.62 106/ul Critically low 4.20-5.40 [facility] Comment on above: Performed By: #### C BC #### [facility] [address] [address] [address] Sandi Michelle WBC 12.9 103/ul Critically high 4.0-11.0 [facility] Comment on above: Performed By: #### C BC #### [facility] [address] [address] [address] Sandi Michelle CHLAMYDIA/GONOCOCCUS ALETHEA (SW AB/URINE/PAPon 02-04-2022 Chlamydia trachomatis, ALETHEA Negative Normal Negative [facility] Comment on above: Performed By: #### C T/NGNA #### [facility] [place] [facility] [address] [address] [address] Sandi Michelle Neisseria gonorrhoeae, ALETHEA Negative Normal Negative [facility] Comment on above: Performed By: #### C T/NGNA #### [facility] [address] [address] [address] Sandi Michelle PAP ACOG PANEL 2: 30 to 65on 02-04-2022 . . Normal [facility] Comment on above: Result Comment: Perf ormed at: WB Performed By: #### [id number] ####[facility] [address] [address]Dr. Sandi Michelle Age Gdln ACOG Testing 30-65 Normal [facility] Comment on above: Performed By: #### 4 [id number] ####[facility] [address] [address]Dr. Sandi Michelle DIAGNOSIS: Comment Normal [facility] Comment on above: Result Comment: NEGA TIVE FOR INTRAEPITHELIAL LESION OR MALIGNANCY. Performed at: WB Performed By: #### 4 [id number] ####[facility] [address] [address]Dr. Sandi Michelle HPV Aptima Negative Normal Negative [facility] Comment on above: Result Comment: This nucleic acid amplification test detects fourteen high-risk HPV types (16,18,31,33,35,39,45,51,52,56,58,59,66,68) without differentiation. Performed at: =G Performed By: #### [id number] ####[facility] [address] [place], [place] [address]DrDen Michelle Methodology: Comment Normal [facility] Comment on above: Result Comment: This liquid based ThinPrep(R) pap test was screened with the use of an image guided system. Performed at: WB Performed By: #### 4 [id number] ####[facility] [address] [place], [place] [address]DrDen Michelle Note: Comment Normal [facility] Comment on above: Result Comment: The Pap smear is a screening test designed to aid in the detection of premalignant and malignant conditions of the uterine cervix. It is not a diagnostic procedure and should not be used as the sole means of detecting cervical cancer. Both false-positive and false-negative reports do occur. . Performed at: WB Performed By: #### [id number] ####[facility] [address] [place], [place] [address]DrDen Michelle Performed by: Comment Normal [facility] Comment on above: Result Comment: Vikas Mcclellan, Museum Informatics Specialist (ASCP) Performed at: WB Performed By: #### 4 [id number] ####[facility] [address] [place], [place] [address]DrDen Michelle Specimen adequacy: Comment Normal [facility] Comment on above: Result Comment: Sati sfactory for evaluation. No endocervical component is identified. Performed at: WB Performed By: #### 4 [id number] ####[facility] [address] [place], [place] [address]DrDen Michelle VAGINITIS/VAGINOSIS DNA PROB Nicholas 02-03-2022 Kaitlynn species Negative Normal Negative [facility] Comment on above: Performed By: #### V AGINT ####[facility] [address] [place], [place] [address]DrDen Michelle Gardnerella vaginalis Negative Normal Negative [facility] Comment on above: Performed By: #### V AGINT ####[facility] [address] [place], [place] [address]DrDen Michelle Trichomonas vaginalis Negative Normal Negative [facility] Comment on above: Performed By: #### V AGINT ####[facility] [address] [place], [place] [address]SzDen Sandi Michelle US PREG ANATOMY SINGLEon US [...] Date: 2022-02-01 19:32 Normal [facility] AFP MATERNAL FOR SPINA BIFID Aon 01-21-2022 AFP MoM 1.24 Normal [facility] Comment on above: Performed By: #### A FPMAT ####[facility] [place] [address] [place], [place] [address]Fz. Sandi Michelle AFP Value 55.2 ng/mL Normal [facility] Comment on above: Performed By: #### A FPMAT ####[facility] [place] [address] [id number]. Sandi Michelle AFP, Serum for Spina Bifida Report Normal [facility] Comment on above: Performed By: #### A FPMAT ####[facility] [place] [address] [id number]. Sanjuanitasonia Michelle Comment Comment Normal [facility] Comment on above: Result Comment: Iesha Sullivan, Ph.D., [facility] Director . References: Available Upon Request. . Multiples Of Median Cutoffs For AFP Elevations Bhandari 2.5 Black 2.8 IDD 2.0 Twins 4.5 Abbreviation Definitions IDD - Insulin Dep Diabetes OSBR - Open Spina Bifida Risk . For further inquiries contact [facility] at [phone]. . This test was developed and its performance characteristics determined by [employer] [employer]. It has not been cleared or approved by the Food and Drug Administration. Performed By: #### A FPMAT ####[facility] [place] [address] [address]Dr. Sandi Michelle Gest Age Collection Date 18.1 weeks [facility] Comment on above: Performed By: #### A FPMAT ####[facility] [address] [id number]. Sandi Michelle Gestat, Age Based on JOSE Normal [facility] Comment on above: Result Comment: 05/26 Recalculations are not recommended when gestational dating by LMP and ultrasound are within 10 days. Performed By: #### A FPMAT ####[facility] [address] [id number]. Sandi Michelle Insulin Dep Diabetes Comment Normal [facility] Comment on above: Result Comment: Not provided. . Performed By: #### A FPMAT ####[facility] [place] [id number] [id number]. Sandi Michelle Interpretation Comment Normal [facility] Comment on above: Result Comment: Inte rpretation: [...] Customer Services to discuss available options. The [employer] recommends amniocentesis be offered to women age 35 and older. Performed By: #### A FPMAT ####[facility] [place] [address] [id number]. Sandi Michelle [age] Normal [facility] Comment on above: Performed By: #### A FPMAT ####[facility] [place] [address] [address]Dr. Sandi Michelle Multiple Gestation No Normal [facility] Comment on above: Performed By: #### A FPMAT ####[facility] [place] [id number] [address]Dr. Sandi Michelle OSBR Risk 1 [place] 5748 Normal [facility] Comment on above: Performed By: #### A FPMAT ####[facility] [place] [address] [id number]. Sandi Michelle PDF . Normal [facility] Comment on above: Performed By: #### A FPMAT ####[facility] [place] [id number] [id number]. Sandi Michelle Race Normal [facility] Comment on above: Performed By: #### A FPMAT ####[facility] [place] [id number] [id number]. Sandi Michelle Test Results: Negative Normal [facility] Comment on above: Performed By: #### A FPMAT ####[facility] [place] [address] [address]Dr. Sandi Michelle HEP B SURFACE ANTIGEN SCREEN on 11-22-2021 HBsAg Screen Negative Normal Negative [facility] Comment on above: Performed By: #### H BSANS ####[facility] [place] [address] [place], [place] [address]VwDr. Sandi Michelle HEPATITIS C VIRUS AB W/ REFL EX QUANTon 11-22-2021 HCV AB 0.1 s/co ratio Normal 0.0-0.9 [facility] Comment on above: Performed By: #### C BC #### [facility] [place] Laboratory [id number] Sandi Michelle Interpretation: Comment Normal [facility] Comment on above: Result Comment: Nega tive Not infected with HCV, unless recent infection is suspected or other evidence exists to indicate HCV infection. Performed By: #### C BC #### [facility] [place] Laboratory [address] [address] [address] Sandi Michelle HIV 1 AND 2 WITH REFLEXon HIV Screen 4th Generation wRfx Non-Reactive Normal Non Reactive [facility] [place] Comment on above: Result Comment: HIV Negative HIV-1/HIV-2 antibodies and HIV-1 p24 antigen were NOT detected. There is no laboratory evidence of HIV infection. Performed By: #### H IV12 ####[facility] [place] [address] [place], [place] [address]SyDr. Sandi Michelle RPR QUANTon 11-22-2021 Rapid Plasma Reagin, Quant Non-Reactive Normal NonRea<1:1 [facility] Comment on above: Result Comment: Plea se Note: This test does not meet current guidelines for screening and diagnosis of syphilis. This test is intended for following treatment response in patients being treated for syphilis infection. To screen for syphilis infection, a reflex cascade that includes both RPR and a treponema-specific assay should be utilized, such as Treponema pallidum (Syphilis) Screening [place] (060085) or Rapid Plasma Reagin (RPR) Test With Reflex to Quantitative RPR and Confirmatory Treponema pallidum Antibodies (236188). Performed By: #### C BC #### [facility] [place] [facility] [address] [address] [address] Sandi Michelle RUBELLA AB IGGon 11-22-2021 Rubella Antibodies, IgG 9.33 index Normal Immune >0.99 [facility] Comment on above: Result Comment: Non- immune <0.90 Equivocal 0.90 - 0.99 Immune >0.99 Performed By: #### C BC #### [facility] [place] Laboratory [address] [place] [address] Dr. Sandi Michelle CBC AUTO DIFFon 11-21-2021 BASO # 0.0 103/ul Normal 0.0-0.1 [facility] Comment on above: Performed By: #### C BC #### [facility] [place] Laboratory [address] [place] [address] Dr. Sandi Michelle Basophils/100 WBC (Bld) 0.4 % Normal 0.2-2.0 [facility] Comment on above: Performed By: #### C BC #### [facility] [place] [facility] [address] [place] [address] Dr. Sandi Michelle EO # 0.1 103/ul Normal 0.0-0.7 [facility] Comment on above: Performed By: #### C BC #### [facility] [place] [facility] [address] [place] [address] Dr. Sandi Michelle Eosinophils/100 WBC (Bld) 0.6 % Critically low 0.9-7.0 [facility] Comment on above: Performed By: #### C BC #### [facility] [place] [facility] [address] [place] [address] Dr. Sandi Michelle Erythrocyte distribution width (RBC) [Ratio] 11.9 % Normal 11.0-15.0 [facility] Comment on above: Performed By: #### C BC #### [facility] [place] [facility] [address] [place] [address] Dr. Sandi Michelle Hematocrit (Bld) [Volume fraction] 37.1 % Normal 36.0-48.0 [facility] Comment on above: Performed By: #### C BC #### [facility] [place] [facility] [address] [place] [address] Dr. Sandi Michelle Hemoglobin (Bld) [Mass/Vol] 12.2 g/dL Normal 12.0-16.0 [facility] Comment on above: Performed By: #### C BC #### [facility] [place] [facility] [address] [place] [address] Dr. Sandi Michelle IG # 0.03 10e3/ul Normal 0.00-0.03 [facility] Comment on above: Performed By: #### C BC #### [facility] [place] [facility] [address] [place] [address] Dr. Sandi Michelle IG % 0.4 % Normal 0.0-0.5 [facility] Comment on above: Performed By: #### C BC #### [facility] [place] [facility] [address] [place] [address] Dr. Sandi Michelle LYMPH # 1.8 103/ul Normal 1.2-3.8 [facility] Comment on above: Performed By: #### C BC #### [facility] [place] [facility] [address] [place] [address] Dr. Sandi Michelle Lymphocytes/100 WBC (Bld) 23.4 % Normal 20.5-60.0 [facility] Comment on above: Performed By: #### C BC #### [facility] [place] [facility] [address] [place] [address] Dr. Sandi Michelle MANUAL DIFF REQ NO Normal [facility] Comment on above: Performed By: #### C BC #### [facility] [place] [facility] [address] [place] [address] Dr. Sandi Michelle MCH (RBC) [Entitic mass] 31.4 pg Normal 26.7-34.0 [facility] Comment on above: Performed By: #### C BC #### [facility] [place] [facility] [address] [place] [address] Dr. Sandi Michelle MCHC (RBC) [Mass/Vol] 32.9 g/dL Normal 29.9-35.2 [facility] Comment on above: Performed By: #### C BC #### [facility] [place] [facility] [address] [place] [address] Dr. Sandi Michelle MCV (RBC) [Entitic vol] 95.6 fL Normal 81.0-99.0 [facility] Comment on above: Performed By: #### C BC #### [facility] [place] [facility] [address] [place] [address] Dr. Sandi Michelle MONO # 0.5 103/ul Normal 0.3-0.8 [facility] [place] Comment on above: Performed By: #### C BC #### [facility] [place] [facility] [address] [address] [address] Sandi Michelle Monocytes/100 WBC (Bld) 6.6 % Normal 1.7-12.0 [facility] Comment on above: Performed By: #### C BC #### [facility] [place] [facility] [address] [address] [address] Sandi Michelle NEUT # 5.4 103/ul Normal 1.4-6.5 [facility] Comment on above: Performed By: #### C BC #### [facility] [place] [facility] [address] [place] [address] Dr. Sandi Michelle Neutrophils/100 WBC (Bld) 68.6 % Normal 43.0-75.0 [facility] Comment on above: Performed By: #### C BC #### [facility] [address] [place] [address] Dr. Sandi Michelle Platelet mean volume (Bld) [Entitic vol] 10.1 fL Normal 9.5-13.5 [facility] Comment on above: Performed By: #### C BC #### [facility] [place] [facility] [address] [place] [address] Dr. Sandi Michelle PLT 237 103/ul Normal 150-450 [facility] Comment on above: Performed By: #### C BC #### [facility] [place] [facility] [address] [place] [address] Dr. Sandi Michelle RBC 3.88 106/ul Critically low 4.20-5.40 [facility] Comment on above: Performed By: #### C BC #### [facility] [place] [facility] [address] [place] [address] Dr. Sandi Michelle WBC 7.9 103/ul Normal 4.0-11.0 [facility] Comment on above: Performed By: #### C BC #### [facility] [place] [facility] [address] [place] [address] Dr. Sandi Michelle CULTURE URINEon 11-21-2021 CULTURE URINE Culture Observations : LIGHT GROWTH OF MIXED GENITAL MENDEZ. NO POTENTIAL PATHOGENS SEEN. Normal [facility] Comment on above: Performed By: #### U RCX #### [facility] [place] [facility] [address] [address] [address] Sandi Michelle GLYCOHEMOGLOBIN A1Con 2021 ADA RECOMMENDATION SEE BELOW Normal [facility] Comment on above: Result Comment: ADA RECOMMENDED LIMIT 4.0 - 6.0 ADA THERAPEUTIC TARGET < 7.0 ACTION SUGGESTED > 7.0 Performed By: #### A 1C ####[facility] [place] [address] [address]Dr. Sandi Michelle Glucose [Mass/Vol] 103 mg/dL Normal [facility] Comment on above: Performed By: #### A 1C ####[facility] [place] [address] [address]Dr. Sandi Michelle HbA1c (Bld) [Mass fraction] 5.2 % Normal 4.5-6.2 [facility] Comment on above: Performed By: #### A 1C ####[facility] [place] [address] [address]Dr. Sandi Michelle TYPE AND SCREENon 11-21-2021 TYPE AND SCREEN Negative Normal [facility] Comment on above: Performed By: #### T NS #### [facility] [place] [facility] [address] [address] [address] Sandi Michelle US PREG TVon 11-03-2021 [...] TIFF BAUMANN Date: 2021-11-03 07:19 Normal [facility] PREG QUANT HCGon 03-23-2022 HCG QUANT 469 mIU/mL Normal [facility] Comment on above: Performed By: #### P REGQNT #### [facility] [place] [facility] [address] [address] [address] Sandi Michelle HCG RANGE SEE BELOW Normal [facility] Comment on above: Result Comment: 5-50 0-1 WEEK 40-300 1-2 WEEKS 100-1,000 2-3 WEEKS 500-6,000 3-4 WEEKS 5,000-200,000 1-2 MONTHS 10,000-100,000 2-3 MONTHS 3,000-50,000 2ND TRIMESTER 1,000-50,000 3RD TRIMESTER Performed By: #### P REGQNT #### [facility] [place] [facility] [address] [address] [address] Sandi Michelle PREG QUANT HCGon 10-12-2021 HCG QUANT 184 mIU/mL Normal [facility] Comment on above: Performed By: #### C BC #### [facility] [place] [facility] [address] [address] [address] Sandi Michelle HCG RANGE SEE BELOW Normal [facility] [place] Comment on above: Result Comment: 5-50 0-1 WEEK 40-300 1-2 WEEKS 100-1,000 2-3 WEEKS 500-6,000 3-4 WEEKS 5,000-200,000 1-2 MONTHS 10,000-100,000 2-3 MONTHS 3,000-50,000 2ND TRIMESTER 1,000-50,000 3RD TRIMESTER Performed By: #### C BC #### [facility] [place] [facility] [address] [address] [address] Sandi Michelle PROTEIN C FUNC ACTIVITYon Prt C Activity (Chromogenic) 130 % Normal [facility] Comment on above: Result Comment: Refe rence Range: 17 years and older: 73 - 180 Effective August 10, 2021 Prt C Activity, (Chromogenic) will be made non-orderable. This will not affect any profile that includes Prt C Activity (Chromogenic). [facility] offers [id number] Protein C Functional. For more information please contact your local [facility] Check Weigher. Performed By: #### P RCACT ####[facility] [place] [address] [address]DrDen Michelle FACTOR V LEIDEN MUTATION CIARAN LYSISon 07-27-2021 Factor V Leiden Comment Normal [facility] Comment on above: Result Comment: Carmen lt: c.1601G>A ([id number]) - Not Detected . This result is not associated with an increased risk for venous thromboembolism. See Additional Clinical Information and Comments. Additional Clinical Information: Venous thromboembolism is a multifactorial disease influenced by genetic, environmental, and circumstantial risk factors. The c.1601G>A (p. [id number]) variant in the F5 gene, commonly referred [...] c.*97G>A variant and Factor V Leiden (PMID: 54831076). Additional risk factors include but are not [...] health care providers to discuss results at [phone]). . Test Details: Variant Analyzed: c.1601G>A (p. [id number]), referred to as Factor V Leiden . [...] developed and its performance characteristics determined by [facility]. It has not been cleared or approved by the Food and Drug Administration. . References: Masoud S, Hawa GUTIÉRREZ, Randy R, Moses WW, Luis A JH; [employer] Professional Practice and Guidelines Committee. Addendum: [employer] consensus statement on factor V Leiden mutation testing. [place] [employer]. 2020Sep 26. doi: 10.1038/o01227-213-15774-k. PMID: 26665668. . Miriam GAMING. Factor V Leiden Thrombophilia. 1998December 05 [Updated 2017Jul 28]. In: Jv MP, eDlia HH, Ian RA, et al., editors. Jovita(R) [Internet]. [place] ([place]): [facility]; 0596-7244. Available from: https://www.ncbi.nlm.nih.gov/books/XNZ8663/ . Jonh S, Hawa GUTIÉRREZ, Francisco Javier X, Leobardo B, Ash EB, Deysi P, Mari CS; [employer] Laboratory Analysis Tester Committee. Venous thromboembolism laboratory testing (factor V Leiden and factor II c.*97G>A), 2018 update: a technical standard of the [employer] ([employer]). [place] [employer]. 2018 Jun;20(12):7662-7948. doi: 10.1038/[id number]-b. Epub 2017Apr 28. PMID: 11385917. . Martha Guillen, PhD, FACMG Lindsay Jaquez, PhD, FACMG Pete Brown, PhD, FACMG Geronimo Mcdaniel, PhD, FACMG Norm Hays, PhD, FACMG Maureen Mancilla, PhD, FACMG Performed By: #### F [facility] ####[address] [place] [address]Dr. Sandi Michelle ANTITHROMBIN ACTIVITYon - Antithrombin Activity 102 % Normal 75-135 [facility] Comment on above: Result Comment: Dire ct Xa inhibitor anticoagulants such as rivaroxaban, apixaban and edoxaban will lead to spuriously elevated antithrombin activity levels possibly masking a deficiency. Performed By: #### C BC #### [facility] [address] [address] [address]Den Michelle B-2 GLYCOPROTEIN AB IGGon Beta-2 Glycoprotein I Ab, IgG <9 Normal 0-20 [facility] Comment on above: Result Comment: The reference interval reflects a 3SD or 99th percentile interval, which is thought to represent a potentially clinically significant result in accordance with the International Consensus Statement on the classification criteria for definitive antiphospholipid syndrome (APS). J Thromb Haem 2006;4:295-306. Performed By: #### B 2GPG ####[facility] [address] [place] [address] [address]Dr. Sandi Michelle B2-GLYCOPROTEIN 1 AB IGMon 0 07-25-2021 Beta-2 Glycoprotein I Ab, IgM <9 Normal 0-32 [facility] Comment on above: Result Comment: The reference interval reflects a 3SD or 99th percentile interval, which is thought to represent a potentially clinically significant result in accordance with the International Consensus Statement on the classification criteria for definitive antiphospholipid syndrome (APS). J Thromb Haem 2006;4:295-306. Performed By: #### B GLYIGM ####[facility] [place] [address] [place] [address] [address]Dr. Sandi Michelle LUPUS ANTICOAGULANT W/REFLEX on 07-24-2021 aPTT Coag (Bld) [Time] 30.9 s Normal 0.0-51.9 [facility] [place] Comment on above: Performed By: #### L UPUSRF ####[facility] [place] [address] [place] [address]Dr. Sandi Michelle dRVVT 33.0 sec Normal 0.0-47.0 [facility] Comment on above: Performed By: #### L UPUSRF ####[facility] [place] [address] [address]Dr. Sandi Michelle Interpretation Comment: Normal [facility] Comment on above: Result Comment: No l upus anticoagulant was detected. Performed By: #### L UPUSRF ####[facility] [place] [address] [id number]. Sandi Michelle PROTEIN S ANTIGENon 07-24-20 21 Protein S, Free 104 % Normal 61-136 [facility] Comment on above: Performed By: #### P RTSAG ####[facility] [place] [address] [id number]. Sandi Michelle Protein S, Total 90 % Normal 60-150 [facility] Comment on above: Result Comment: This test was developed and its performance characteristics determined by [facility]. It has not been cleared or approved by the Food and Drug Administration. Performed By: #### P RTSAG ####[facility] [place] [address] [address]Dr. Sanjuanitasonia Miguel Angel PROTEIN S, FUNCTIONALon - Protein S-Functional 107 % Normal 63-140 [facility] Comment on above: Result Comment: Prot ein S activity may be falsely increased (masking an abnormal, low result) in patients receiving direct Xa inhibitor (e.g., rivaroxaban, apixaban, edoxaban) or a direct thrombin inhibitor (e.g., dabigatran) anticoagulant treatment due to assay interference by these drugs. Performed By: #### C BC #### [facility] [place] [facility] [address] [address] [address] Sandi Michelle ANTICARDIOLIPIN AB (JEANIE) IGG on 07-23-2021 Anticardiolipin Ab,IgG,Qn <9 Normal 0-14 [facility] Comment on above: Result Comment: Nega tive: <15 Indeterminate: 15 - 20 Low-Med Positive: >20 - 80 High Positive: >80 Performed By: #### C ARDLIP #### [facility] [place] [facility] [address] [address] [address] Sandi Michelle ANTICARDIOLIPIN AB (JEANIE) IGM on 07-23-2021 Anticardiolipin Ab,IgM,Qn 12 MPL U/mL Normal 0-12 [facility] Comment on above: Result Comment: Nega tive: <13 Indeterminate: 13 - 20 Low-Med Positive: >20 - 80 High Positive: >80 Performed By: #### C INDI ####[facility] [place] [address] [place], [place] [address]OiDen Michelle Vital Signs Date Time Vital Sign Value Performing Clinician Facility 09-12-2024 14:53-0500 Body mass index (BMI) [Ratio] 30.02 kg/m2 Lee Keyona DO Work Phone: [facility] 09-12-2024 14:53-0500 Body weight 84.37 kg Lee Keyona DO Work Phone: [facility] 09-12-2024 14:53-0500 Diastolic blood pressure 70 mm[Hg] Lee Keyona DO Work Phone: [facility] 09-12-2024 14:53-0500 Systolic blood pressure 120 mm[Hg] Lee Keyona DO Work Phone: [facility] 08-29-2024 15:30-0500 Body mass index (BMI) [Ratio] 29.92 kg/m2 Lee Keyona DO Work Phone: [facility] 08-29-2024 15:30-0500 Body weight 84.1 kg Lee Keyona DO Work Phone: [facility] 08-29-2024 15:30-0500 Diastolic blood pressure 70 mm[Hg] Lee Keyona DO Work Phone: [facility] 08-29-2024 15:30-0500 Systolic blood pressure 120 mm[Hg] Lee Keyona DO Work Phone: [facility] 08-09-2024 09:39-0500 Body mass index (BMI) [Ratio] 30.18 kg/m2 Lee Keyona DO Work Phone: [facility] 08-09-2024 09:39-0500 Body weight 84.82 kg Lee Keyona DO Work Phone: [facility] 08-09-2024 09:39-0500 Diastolic blood pressure 64 mm[Hg] Lee Keyona DO Work Phone: [facility] 08-09-2024 09:39-0500 Systolic blood pressure 114 mm[Hg] Lee Keyona DO Work Phone: [facility] 07-12-2024 09:59-0500 Body mass index (BMI) [Ratio] 29.39 kg/m2 Lee Keyona DO Work Phone: [facility] 07-12-2024 09:59-0500 Body weight 82.61 kg Lee Keyona DO Work Phone: [facility] 07-12-2024 09:59-0500 Diastolic blood pressure 68 mm[Hg] Lee Keyona DO Work Phone: [facility] 07-12-2024 09:59-0500 Systolic blood pressure 108 mm[Hg] Lee Keyona DO Work Phone: [facility] 06-11-2024 16:44-0500 Body mass index (BMI) [Ratio] 28.59 kg/m2 Lee Keyona DO Work Phone: [facility] 06-11-2024 16:44-0500 Body weight 80.34 kg Lee Keyona DO Work Phone: [facility] 06-11-2024 16:44-0500 Diastolic blood pressure 70 mm[Hg] Lee Keyona DO Work Phone: [facility] 06-11-2024 16:44-0500 Systolic blood pressure 108 mm[Hg] Lee Keyona DO Work Phone: [facility] 05-08-2024 15:11-0400 Body mass index (BMI) [Ratio] 27.76 kg/m2 Lee Keyona DO Work Phone: [facility] 05-08-2024 15:11-0400 Body weight 78.02 kg Lee Keyona DO Work Phone: [facility] 05-08-2024 15:11-0400 Diastolic blood pressure 70 mm[Hg] Lee Keyona DO Work Phone: [facility] 05-08-2024 15:11-0400 Systolic blood pressure 112 mm[Hg] Lee Keyona DO Work Phone: [facility] 04-05-2024 14:24-0400 Body mass index (BMI) [Ratio] 27.76 kg/m2 [facility] 04-05-2024 [id number]:[id number] Body weight 78.02 kg Nom Nurse [facility] 04-05-2024 14:24-0400 Diastolic blood pressure 68 mm[Hg] [facility] Nurse [facility] 04-05-2024 14:24040 Systolic blood pressure 118 mm[Hg] [facility] Nurse [facility] 01-21-2022 03:06-040 Body weight 72.[address] LEE RAND [facility] [place] Comment on above: Performed By: #### A FPMAT ####[facility] [place] [id number] [place], [place] [address]PqDen Michelle Encounters Encounter Date Encounter Type Care Provider Facility Start: 09-18-2024 End: 09-18-2024 Clinisync Result Encounter Lee Keyona DO Work Phone: [facility] External Department Unsolicited Start: 09-18-2024 End: 09-18-2024 Clinisync Result Encounter Lee Keyona DO Work Phone: [facility] External Department Unsolicited Start: 09-12-2024 End: 09-12-2024 flow sheet Lee Keyona DO Work Phone: [facility] Comment on above: 31 weeks gestation o f ; Third trimester Start: 09-12-2024 End: 09-12-2024 ambulatory LEE KEYONA Not Available Start: 09-12-2024 End: 09-12-2024 Clinisync Result Encounter Lee Keyona DO Work Phone: [facility] External Department Unsolicited Start: 09-12-2024 End: 09-12-2024 [...] Result Encounter Lee Keyona DO Work Phone: [facility] External Department Unsolicited Start: 07-12-2024 End: 07-12-2024 Bamboo flowsheet Lee Keyona DO Work Phone: [facility] Start: 07-12-2024 End: 07-12-2024 Bamboo flowsheet Lee Keyona DO Work Phone: [facility] Start: 07-12-2024 End: 07-12-2024 flow sheet Lee Keyona DO Work Phone: [facility] Comment on above: Second trimester pre gnancy; with normal glucose tolerance test (GTT); 22 weeks gestation of ; Diabetes mellitus screening Start: 07-12-2024 End: 07-12-2024 ambulatory LEE KEYONA Not Available Start: 06-30-2024 End: 07-04-2024 Clinisync Result Encounter Lee Keyona DO Work Phone: [facility] External Department Unsolicited Start: 06-30-2024 End: 07-04-2024 Clinisync Result Encounter Lee Keyona DO Work Phone: [facility] External Department Unsolicited Start: 06-11-2024 End: 06-12-2024 ambulatory LEE KEYONA Not Available Start: 06-11-2024 End: 06-12-2024 flow sheet Lee Keyona DO Work Phone: [facility] Comment on above: Second trimester pre gnancy; 18 weeks gestation of ; Vaginal discharge; STD exposure; Screening, , for anatomic survey Start: 06-11-2024 End: 06-11-2024 Bamboo flowsheet Lee Keyona DO Work Phone: [facility] Start: 06-11-2024 End: 06-13-2024 Bamboo flowsheet Lee Keyona DO Work Phone: [facility] Start: 06-11-2024 End: 06-13-2024 External [...] Date Procedure Procedure Detail Performing Clinician Start: 09-18-2024 US OB BPP W NON-STRESS Lee Rand DO Work Phone: Start: 09-12-2024 Urnls dip stick/tabl et rgnt non-auto w/o micrscp Lee Harriso DO Work Phone: Start: 09-12-2024 US OB [...] Treatment Date Care Activity Detail Author Start: 09-26-2024 End: 09-26-2024 Patient encounter procedure 09/26/2024 11:10 AM EST Routine [facility] [address] [place] [id number] Lee Rand, DO [address] [place] [address] [facility] Start: 09-12-2024 End: 09-12-2024 Patient encounter procedure 09/12/2024 2:30 PM EST Routine [facility] [address] [place] [id number] Lee Rand, DO [address] [place] [address] [facility] Start: 08-29-2024 End: 08-29-2024 [...] Routine [facility] [address] [place] [id number] Lee Rand, DO [address] [place] [address] [facility] Start: 07-31-2024 End: 07-31-2024 Patient encounter procedure 07/31/2024 1:00 PM EST Office Visit [facility] [address] [place] [id number] Lee Rand, DO [address] [facility] [address] [place], [place] [id number] [facility] Start: 07-12-2024 End: 07-12-2025 [...] mellitus screening Expected: 07/12/2024 (Approximate), Expires: 07/12/2025 [facility] Comment on above: Expected: 07/12/2024 (Approximate), Expires: 07/12/2025 Start: 07-12-2024 End: 07-12-2024 Patient encounter procedure [facility] Comment on above: Arrived Start: 06-11-2024 End: 06-11-2024 Patient encounter procedure 06/11/2024 3:50 PM EST Routine [facility] [address] [facility] [place] [id number] Lee Rand, DO [address] [facility] [address] [place], [place] [id number] [facility] Start: 06-11-2024 End: 12-09-2024 Alpha fetoprotein, maternal Alpha fetoprotein, maternal Lab Routine Second trimester Expected: 06/11/2024 (Approximate), Expires: 12/09/2024 [facility] Comment on above: Expected: 06/11/2024 (Approximate), [...] Missed menses Expected: 04/05/2024 (Approximate), Expires: 04/05/2025 [facility] Work Phone: Comment on above: Expected: 04/05/2024 (Approximate), Expires: 04/05/2025 Start: 04-05-2024 End: 04-05-2025 Drugs of abuse panel - Urine by Screen method Rapid drug screen, urine Lab Routine Encounter for supervision of normal first in first trimester , unspecified gestational age Expected: 04/05/2024 (Approximate), Expires: 04/05/2025 [facility] Comment on above: Expected: 04/05/2024 (Approximate), Expires: 04/05/2025 Start: 04-05-2024 End: 04-05-2025 US Pelvis transvaginal US OB transvaginal Imaging Routine Missed menses Expected: 04/05/2024 (Approximate), Expires: 04/05/2025 [facility] Comment on above: Expected: 04/05/2024 (Approximate), Expires: 04/05/2025 Bacteria identified in Urine by Culture Urine culture Microbiology Routine Missed menses Ordered: 04/05/2024 [facility] Comment on above: Ordered: 04/05/2024 CBC W Auto Different ial panel - Blood CBC and differential Lab Routine Missed menses Ordered: 04/05/2024 [facility] Comment on above: Ordered: 04/05/2024 CHLAMYDIA TRACHOMATI S (GENITO/STI) CHLAMYDIA TRACHOMATIS (GENITO/STI) Lab Routine STD exposure Ordered: 06/11/2024 [facility] Comment on above: Ordered: 06/11/2024 Hemoglobin A1c/Hemoglobin.total in Blood Hemoglobin A1c Lab Routine Missed menses Ordered: 04/05/2024 [facility] Comment on above: Ordered: 04/05/2024 Hepatitis B virus surface Ag [Presence] in Serum or Plasma by Immunoassay Hepatitis B surface antigen Lab Routine Missed menses Ordered: 04/05/2024 [facility] Comment on above: Ordered: 04/05/2024 Hepatitis C virus Ab [Presence] in Serum or Plasma by Immunoassay Hepatitis C antibody Lab Routine Missed menses Ordered: 04/05/2024 [facility] Comment on above: Ordered: 04/05/2024 HIV-1/HIV-2 antigen/antibody combination immunoassay HIV-1 and HIV-2 antibodies Lab Routine Missed menses Ordered: 04/05/2024 [facility] Comment on above: Ordered: 04/05/2024 Neisseria gonorrhoea e DNA [Presence] in Unspecified specimen by ALETHEA with probe detection Neisseria gonorrhea DNA probe, direct Lab Routine STD exposure Ordered: 06/11/2024 [facility] Comment on above: Ordered: 06/11/2024 Reagin Ab [Presence] in Serum by RPR RPR Lab Routine Missed menses Ordered: 04/05/2024 [facility] Comment on above: Ordered: 04/05/2024 Rubella antibody, IgG Rubella an tibody, IgG Lab Routine Missed menses Ordered: 04/05/2024 [facility] Comment on above: Ordered: 04/05/2024 SURESWAB(R) ADVANCED VAGINITIS PLUS, TMA SURESWAB(R) ADVANCED VAGINITIS PLUS, TMA Pathology and Cytology Routine Vaginal discharge Ordered: 06/11/2024 [facility] Work Phone: Comment on above: Ordered: 06/11/2024 Payers Date Payer Category Payer Private Health Insurance [employer] [id number] 2024 Unknown [id number] 2020 Managed Care HMO (unspecified) [id number] 1991 Unknown [id number] 2.16.840.1.837459.3.579.2. 593 1991 Unknown [id number] 2.16.840.1.136527.3.579.2. 593 1991 Unknown [id number] 2.16.840.1.426445.3.579.2. 593 1991 Unknown [id number] 2.16.840.1.465968.3.579.2. 593 1991 Unknown [id number] 2.16.840.1.472533.3.579.2. 593 1991 Unknown [id number] 2.16.840.1.303502.3.579.2. 593 1991 Unknown [id number] 2.16.840.1.152802.3.579.2. 593 1991 Unknown [id number] 2.16.840.1.919651.3.579.2. 593 1991 Unknown [id number] 2.16.840.1.602718.3.579.2. 593 1991 Unknown [id number] 2.16.840.1.737340.3.579.2. 593 1991 Unknown [id number] 2.16.840.1.708333.3.579.2. 593 1991 Unknown [id number] 2.16.840.1.179362.3.579.2. 593 1991 Unknown [id number] 2.16.840.1.802953.3.579.2. 593 1991 Unknown [id number] 2.16.840.1.243784.3.579.2. 593 1991 Unknown [id number] 2.16.840.1.812619.3.579.2. 593 1991 Unknown [id number] 2.16.840.1.669910.3.579.2. 593 1991 Unknown [id number] 2.16.840.1.802671.3.579.2. 593 1991 Unknown [id number] 2.16.840.1.144622.3.579.2. 593 1991 Unknown [id number] 2.16840.1.781560.3.579.2. 593 1991 Unknown [id number] 2.16.840.1.985012.3.579.2. 593 1991 Unknown [id number] 2.16.840.1.274925.3.579.2. 593 1991 Unknown [id number] 2.16.840.1.291927.3.579.2. 1259 1991 Unknown [id number] 2.16840.1.153603.3.579.2. 1259 1991 Unknown [id number] 2.16.840.1.394831.3.579.2. 1259 1991 Unknown [id number] 2.16.840.1.501187.3.579.2. 1259 1991 Unknown [id number] 2.16.840.1.364117.3.579.2. 1259 1991 Unknown [id number] 2.16.840.1.407595.3.579.2. 1259 1991 Unknown [id number] 2.16.840.1.096644.3.579.2. 1259 1991 Unknown [id number] 2.16.840.1.043759.3.579.2. 1259 1991 Unknown [id number] 2.16.840.1.166124.3.579.2. 1259 1959 Private Health Insurance [id number] Social History Date Type Detail Facility Start: 02-08-2023 Tobacco smoking stat [facility] Never smoked tobacco [facility] Start: 02-08-2023 [...] Start: 02-06-2023 Sexual orientation Heterosexual (fin ding) [facility] Medical Equipment Procedure Code Equipment Code Equipment Origin al Text Equipment Identifier Dates 1 strip by In Vi tro route Daily Use in the morning prior to breakfast, 1 hour after each meal for a total of 4times daily. [id number] Start: 08-09-2024 End: 09-12-2024 1 each by In Vit ro route Daily Use to check FSBS four times daily [id number] Start: 08-09-2024 End: 09-12-2024 Goals Date Patient Goal Desired Activity /State Personal health goal Clinical Notes 06-04-2022 to 09-12-2024 Tere Hu LPN - 09/12/2024 2:30 PM David Hu LPN - 08/29/2024 3:20 PM Corbin Parsons, HARIKA - 08/09/2024 9:10 AM Corbin Parsons LPN - 07/12/2024 9:50 AM EST [...] 81 mg, Daily Blood Glucose Monitoring Suppl ([employer] Glucometer) w/Device kit 1 kit, Does not [...] nursing note reviewed. 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 Vitals: Estimated body mass index is [...] Lee Rand DO documented in this encounter [facility] 08-29-2024 History of Presen t illness [...] 81 mg, Daily Blood Glucose Monitoring Suppl ([email or web address] Glucometer) w/Device kit 1 kit, Does not [...] Grandfather Bo Albright Cancer Paternal Grandmother December [facility] Arthritis Paternal Grandmother December [facility] Hypertension Paternal Grandmother December [facility] SURGICAL HISTORY Past Surgical History: [...] nursing note reviewed. 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 Vitals: Estimated body mass index is [...] Lee Rand DO documented in this encounter [facility] 08-09-2024 History of Presen t illness [...] nursing note reviewed. 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 Vitals: Estimated body mass index is [...] Lee Rand DO documented in this encounter [facility] 07-12-2024 History of Presen t illness [...] Maternal Grandfather Bo Albright Cancer Paternal Grandmother Decemberrishabh Arthritis Paternal Grandmother Decembersushant Hypertension Paternal Grandmother Decembersushant SURGICAL HISTORY Past [...] nursing note reviewed. 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 Vitals: Estimated body mass index is [...] with patient and she is scheduled with [facility] for confirmation of complete placenta previa. Patient to return to clinic in 4 weeks for routine OB. Documented by Miranda Parsons LPN on behalf of: Lee Rand DO documented in this encounter [facility] 06-11-2024 History of Presen t illness [...] nursing note reviewed. 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 Vitals: Estimated body mass index is [...] Lee Rand DO documented in this encounter [facility] 05-08-2024 History of Presen t illness [...] Grandfather Bo Heidtman Cancer Paternal Grandmother December Davis Arthritis Paternal Grandmother December Davis Hypertension [...] nursing note reviewed. 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 Vitals: Estimated body mass index is [...] or undercooked meat, and stay away from [facility]. Patient has been consulted regarding any further do's and don'ts of . Patient voiced understanding and all questions and concerns were answered. Orders Placed This Encounter Procedures POCT urinalysis dipstick manually resulted Follow Up: Patient is to return in 4 weeks for routine OB appointment. Documented by Tere Hu LPN on behalf of: Lee Rand DO documented in this encounter [facility] 04-05-2024 History of Presen t illness [...] Paternal Grandmother December Davis Arthritis Paternal Grandmother Isis Davis Hypertension Paternal Grandmother Isis Davis Social History Tobacco Use Smoking status: Never [...] or undercooked meat, and stay away from [facility]. Patient has also been advised to [...] by: Janis Hylton documented in this encounter [facility] 06-04-2022 Note OPERATIVE NOTE OPERATION DATE: 06/04/2022 PROCEDURE: Primary low transverse section. PREOPERATIVE DIAGNOSIS: 1. Intrauterine at 37 5/7 weeks. 2. Breech presentation. POSTOPERATIVE DIAGNOSIS: 1. Intrauterine at 37 5/7 weeks. 2. Breech presentation. 3. 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 SURGEON: Lee Rand SOLE ASSESSOR: SCARLET Albert URINE OUTPUT: Yellow and clear. [...] Room in stable condition. [facility] [place] Evaluation note Diagnosis 13 weeks gestation of Second trimester state, incidental documented in this encounter [facility]* Diagnosis Second trimester state, incidental 18 weeks gestation of Vaginal discharge Leukorrhea, not specified as infective STD exposure Screening, , for anatomic survey Encounter for anatomic survey documented in this encounter [facility]* Diagnosis Missed menses Encounter for supervision of normal first in first trimester , unspecified gestational age care, antepartum documented [facility] Diagnosis Second trimester state, incidental with normal glucose tolerance test (GTT) 22 weeks gestation of Diabetes mellitus screening Screening for diabetes mellitus documented in this encounter [facility]* Diagnosis Second trimester state, [...] and content) DATE CREATED AUTHOR 06/14/2022 [facility] DATE CREATED AUTHOR AUTHOR'S ORGANIZ ATION 09/14/2024 [facility] dical Specialists [employer] Care Teams (unrecognized sec tion and content) 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 Start Date End Date Fito Cueto MD [address] [place] [address] PCP - General Family Medicine 02/09/23 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 Start Date End Date Fito Cueto MD [address] [place] [address] PCP - General Family Medicine 02/09/23 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 Start Date End Date Fito Cueto MD [address] [place] [address] PCP - General Family Medicine 02/09/23 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 Start Date End Date Fito Cueto MD [address] [place] [address] PCP - General Family Medicine 02/09/23 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 Start Date End Date Fito Cueto MD [address] [place] [address] PCP - General Family Medicine 02/09/23 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 Start Date End Date Fito Cueto MD [address] [place] [address] PCP - General Family Medicine 02/09/23 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 Start Date End Date Fito Cueto MD [address] [place] [address] PCP - General Family Medicine 02/09/23 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 Start Date End Date Fito Cueto MD [address] [place] [address] PCP - General Family Medicine 02/09/23 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 Start Date End Date Fito Cueto MD [address] [place] [id number] PCP - General Family Medicine 02/09/23 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 Start Date End Date Fito Cueto MD [address] [place] [address] PCP - General Family Medicine 02/09/23 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 Start Date End Date Fito Cueto MD [address] [place] [id number] PCP - General Family Medicine 02/09/23 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 Start Date End Date Fito Cueto MD [address] [place] [id number] PCP - General Family Medicine 02/09/23 Reason [...] BE BASED ON THE PRIMARY CLINICAL RECORDS. [facility] provides no warranty or guarantee of the accuracy or completeness of information in this document.
[2024-09-21 18:04] VITALS: BP 118/68; PULSE 93
== END 2024-09-21 18:30 | disposition home or self-care (01) ==
LOC: FBCO 00:13 → FBC 17:41
PROVIDERS: Visit Provider Obstetrics & Gynecology
DX: O24.419 Gestational diabetes mellitus in pregnancy, unspecified control (principal)
CPT/HCPCS: 59025

== ENCOUNTER 2024-09-25 00:49 | Outpatient (OUT) | payer OTHER, SELFPAY ==
--- OUTSIDE RECORDS SUMMARY | 2024-09-25 00:53 | XMS_ITS | CCD ---
Author Organization [facility] Care Team Providers Care Facilities Coordinator Name Role Phone KEYONA, DR LAWRENCE Admitting [...] Attending Unavailable TELLY, DR PENNINGTON Consulting Unavailable ENDEAVOR, DR RIGO Medina Consulting Unavailable KEYONA, DR LAWRENCE Consulting Unavailable Bandar Cueto MDishna Primary Care Provider [phone] KEYONA, LEE Attending Unavailable KEYONA, LEE Attending Unavailable KEYONA, LEE Attending Unavailable KEYONA, LEE Attending Unavailable KEYONA, LEE Attending Unavailable KEYONA, LEE Attending Unavailable KEYONA, LEE Attending Unavailable KEYONA, LEE Attending Unavailable Allergies Allergy Classification Reported Allergen(s) Allergy Type Date of Onset Reaction(s) Facility (2 sources) Acetaminophen / HYDROcodone Drug Allergy [facility] Repository Medications Current Medications Medication Drug [...] Facility OB BPP W NON-STRESS on 09-18-2024 [place] [address] Ultrasound Report Signed Patient: ANNA LAW MR#: [id number] : 1990 Acct:[id number] Age/Sex: 34 / F ADM Date: 09/18/24 Loc: US Attending Dr: Lee Rand D.O. Ordering Physician: Lee Rand D.O. Date of Service: 09/18/24 Procedure(s): US OB BPP w non-stress Accession Number(s): [id number] cc: Lee Rand D.O.; Physician,Non-Staff MJuan Alberto The [address] [address] Patient Name: ANNA LAW MRN: [facility]:[id number] date: 1990 Sex: F Assigned Patient Location: US Current Patient Location: Accession/Order Number: [id number] Exam Date: 09/18/2024 22:52 Report Date: 09/18/2024 22:56 At the request of: LEE RAND DO Procedure: US OB BPP w non-stress Biophysical profile. Reason for exam: Diet-controlled gestational diabetes. COMPARISON: BPP 09/12/2024. Technique: Transabdominal imaging of the gravid uterus was obtained. FINDINGS: Crown Presser reports the BPP is 8 out of 8. JAS is normal at 14.3 cm. heart rate 135 bpm. US/US OB BPP w non-stress IMPRESSION: BPP 8 out of 8. Impression dictated by: Pete Engle Jr., D.O.09/18/2024 10:56 PM Dictation Location: [place] [address] Electronically authenticated by: [id number] Y Date: 09/18/2024 22:56 Dictated By: Pete Engle M.D. Signed By: 09/18/242257 DD/ 55 TD/TT: Flight Test Data Acquisition Technician: [facility] Radiology, Radiologist, MD - 09/18/2024 [place] [address] Ultrasound Report Signed Patient: ANNA LAW MR#: [id number] : 1990 Acct:[id number] Age/Sex: 34 / F ADM Date: 09/18/24 Loc: US Attending Dr: Lee Rand D.O. Ordering Physician: Lee Rand D.O. Date of Service: 09/18/24 Procedure(s): US OB BPP w non-stress Accession Number(s): [id number] cc: Lee Rand D.O.; Physician,Non-Staff Aguilar The [place] [id number] Patient Name: ANNA LAW MRN: [facility]:[id number] date: 1990 Sex: F Assigned Patient Location: US Current Patient Location: Accession/Order Number: [id number] Exam Date: 09/18/2024 22:52 Report Date: 09/18/2024 22:56 At the request of: LEE RAND DO Procedure: US OB BPP w non-stress Biophysical profile. Reason for exam: Diet-controlled gestational diabetes. COMPARISON: BPP 09/12/2024. Technique: Transabdominal imaging of the gravid uterus was obtained. FINDINGS: Crown Presser reports the BPP is 8 out of 8. JAS is normal at 14.3 cm. heart rate 135 bpm. US/US OB BPP w non-stress IMPRESSION: BPP 8 out of 8. Impression dictated by: Pete Engle Jr., D.O.09/18/2024 10:56 PM [facility]ation [facility] Electronically authenticated by: [id number] Y Date: 09/18/2024 22:56 Dictated By: Pete Engle M.D. Signed By: 09/18/242257 DD/ 55 TD/TT: Flight Test Data Acquisition Technician: [facility] Radiology Study observation (narrative) [facility] US OB BPP W NON-STRESS Ordered By: Radiologist Radiology on 09-18-2024 [facility] Work Phone: US OB BPP W NON-STRESS on 09-12-2024 [place] [address] Ultrasound Report Signed Patient: ANNA LAW MR#: [id number] : 1990 Acct:[id number] Age/Sex: 34 / F ADM Date: 09/11/24 Loc: US Attending Dr: Lee Rand D.O. Ordering Physician: Lee Rand D.O. Date of Service: 09/11/24 Procedure(s): US OB BPP w non-stress Accession Number(s): [id number] cc: Lee Rand D.O.; Physician,Non-Staff MJuan Alberto The [place] [id number] Patient Name: ANNA LAW MRN: [facility]:[id number] date: 1990 Sex: F Assigned Patient Location: [facility] Current Patient Location: Accession/Order Number: [id number] Exam Date: 09/12/2024 09:01 Report Date: 09/12/2024 [...] 31 weeks 3 days. The heart rate [id number] beats per minute. FINDINGS: TONE: 1 or [...] Tere Munoz M.D.09/12/2024 9:04 AM Dictation Location: [place] [address] Electronically authenticated by: [id number] Y Date: 09/12/2024 09:04 Dictated By: Tere Munoz M.D. Signed By: 09/12/24905 DD/ 3 TD/TT: Flight Test Data Acquisition Technician: [facility] Radiology, Radiologist, - 09/12/[address] [address] Ultrasound Report Signed Patient: ANNA LAW MR#: [id number] : 1990 Acct:[id number] Age/Sex: 34 / F ADM Date: 09/11/24 Loc: US Attending Dr: Lee Rand D.O. Ordering Physician: Lee Rand D.O. Date of Service: 09/11/24 Procedure(s): US OB BPP w non-stress Accession Number(s): [id number] cc: Lee Rand D.O.; Physician,Non-Staff [place] [address] Patient Name: ANNA LAW MRN: [facility]:[id number] date: 1990 Sex: F Assigned Patient Location: [facility] Current Patient Location: Accession/Order Number: [id number] Exam Date: 09/12/2024 09:01 Report Date: 09/12/2024 [...] 31 weeks 3 days. The heart rate beats per minute. FINDINGS: TONE: 1 or [...] Tere Munoz M.D.09/12/2024 9:04 AM Dictation [facility] Electron[facility] authenticated by: [id number] Y Date: 09/12/2024 09:04 Dictated By: Tere Munoz M.D. Signed By: 09/12/24905 DD/ 3 TD/TT: Flight Test Data Acquisition Technician: [facility] Radiology Study observation (narrative) [facility] US OB BPP W NON-STRESS Ordered By: Radiologist Radiology on 09-12-2024 [facility] Work Phone: Urinalysis macro (dipstick) panel (U)on 09-12-2024 Bilirubin, UA Negative Negative - 4(70) +++ mg/dL [facility] Blood, UA Negative Negative - 50 Yang/mcL [facility] Clarity, UA Clear [facility] Color, UA Yellow [facility] Glucose, UA Negative Negative - 2000(110) ++++ mg/dL [facility] Interpretation and review of laboratory results Abnormal [facility] Ketones, UA Positive Negative - 160(16) ++++ mg/dL [facility] Comment on above: trace Leukocytes, UA Negative Negative - 500+++ Derik/mcL [facility] Nitrite, UA Negative Negative - Positive [facility] pH, UA 7 5 - 9 [facility] Protein, UA Trace Negative - 2000(20) ++++ mg/dL [facility] Spec Grav, UA 1.02 1 - 1.03 [facility] Urobilinogen, UA 0.2 0.2 - 12 mg/dL [facility] US OB BPP W NON-STRESS on 09-05-2024 [place] [address] Ultrasound Report Signed Patient: ANNA LAW MR#: [id number] : 1990 Acct:[id number] Age/Sex: 34 / F ADM Date: 09/04/24 Loc: US Attending Dr: Lee Rand D.O. Ordering Physician: Lee Rand D.O. Date of Service: 09/04/24 Procedure(s): US OB BPP w non-stress Accession Number(s): [id number] cc: Lee Rand D.O.; Physician,Non-Staff M.DDen The [address] [address] Patient Name: ANNA LAW MRN: [id number]:[id number] date: 1990 Sex: F Assigned Patient Location: [facility] Current Patient Location: Accession/Order Number: [id number] Exam Date: 09/04/2024 18:52 Report Date: 09/05/2024 [...] Signed By: 09/05/24 0555 DD/ 0553 TD/TT: Flight Test Data Acquisition Technician: [facility] Radiology, Radiologist, MD - 09/05/2024 [place] [address] Ultrasound Report Signed Patient: ANNA LAW MR#: [id number] : 1990 Acct:[id number] Age/Sex: 34 / F ADM Date: 09/04/24 Loc: US Attending Dr: Lee Rand D.O. Ordering Physician: Lee Rand D.O. Date of Service: 09/04/24 Procedure(s): US OB BPP w non-stress Accession Number(s): [id number] cc: Lee Rand D.O.; Physician,Non-Staff MJuan Alberto The [address] [address] Patient Name: ANNA LAW MRN: [facility]:[id number] date: 1990 Sex: F Assigned Patient Location: [facility] Current Patient Location: Accession/Order Number: [id number] Exam Date: 09/04/2024 18:52 Report Date: 09/05/2024 [...] Signed By: 09/05/24 0555 DD/ 0553 TD/TT: Flight Test Data Acquisition Technician: [facility] Radiology Study observation (narrative) [facility] US OB BPP W NON-STRESS Ordered By: Radiologist Radiology on 09-05-2024 [facility] Work Phone: Urinalysis macro (dipstick) panel (U)on 08-29-2024 Bilirubin, UA Negative Negative - 4(70) +++ mg/dL [facility] Blood, UA Positive Negative - 50 Yang/mcL [facility] Comment on above: trace-intact Clarity, UA Clear [facility] Color, UA Yellow [facility] Glucose, UA Negative Negative - 2000(110) ++++ mg/dL [facility] Interpretation and review of laboratory results Abnormal [facility] Ketones, UA Positive Negative - 160(16) ++++ mg/dL [facility] Comment on above: 40 Leukocytes, UA Trace Negative - 500+++ Derik/mcL [facility] Nitrite, UA Negative Negative - Positive [facility] pH, UA 5.5 5 - 9 [facility] Protein, UA Trace Negative - 2000(20) ++++ mg/dL [facility] Spec Grav, UA 1.025 1 - 1.03 [facility] Urobilinogen, UA 1.0 0.2 - 12 mg/dL [facility] GLUCOSE TOLERANCE 3 HOURon 0 07-28-2024 GLUCOSE TOLERANCE 3 HOUR High mg/dL [facility] Comment on above: GLU FAST 87 (<95) Co l: 07/28/24 0638 GLU 1HR 199H (<180) Col: 07/28/24 0739 GLU 2HR 173H (<155) Col: 07/28/24 0839 GLU 3HR 94 (<140) Col: 07/28/24 0939 Interpretation and review of laboratory results Abnormal [facility] 1 [facility]on 07-21-2024 Glucose [Mass/Vol] 154 mg/dL High NINF - 13 0 mg/dL [facility] Interpretation and review of laboratory results Abnormal [facility] Urinalysis macro (dipstick) panel (U)on 07-12-2024 Bilirubin, UA Negative Negative - 4(70) +++ mg/dL [facility] Blood, UA Negative Negative - 50 Yang/mcL [facility] Clarity, UA Clear [facility] Color, UA Yellow [facility] Glucose, UA Negative Negative - 2000(110) ++++ mg/dL [facility] Interpretation and review of laboratory results Normal [facility] Ketones, UA Negative Negative - 160(16) ++++ mg/dL [facility] Leukocytes, UA Negative Negative - 500+++ Derik/mcL [facility] Nitrite, UA Negative Negative - Positive [facility] pH, UA 7 5 - 9 [facility] Protein, UA Negative Negative - 2000(20) ++++ mg/dL [facility] Spec Grav, UA 1.02 1 - 1.03 [facility] Urobilinogen, UA 1.0 0.2 - 12 mg/dL [facility] AFP, SERUM, OPEN SPINA BIFID Aon 07-04-2024 AFP MOM 1.60 . [facility] AFP VALUE 91.9 ng/mL . [facility] COMMENT: Comment . [facility] Comment on above: Sonia Sullivan , Ph.D., [facility] Director References: Available Upon Request. Multiples Of Median Cutoffs For AFP Elevations Bhandari 2.5 Black 2.8 IDD 2.0 Twins 4.5 Abbreviation Definitions IDD - Insulin Dep Diabetes OSBR - Open Spina Bifida Risk For further inquiries contact [employer] at [phone]. This test was developed and its performance characteristics determined by [employer]. It has not been cleared or approved by the Food and Drug Administration. Performed at: - [facility] [address], [place], [place] [id number] [employer] Operator: Francis Boyd [facility], Phone: [phone] GEST. AGE ON COLLECTION DATE 21.0 . weeks [facility] GESTAT. AGE BASED ON LMP . [facility] Comment on above: Recalculations are n ot recommended when gestational dating by LMP and ultrasound are within 10 days. INSULIN DEP DIABETES No . [facility] INTERPRETATION Comment . [facility] Comment on above: Interpretation: Scre en Negative [...] Customer Services to discuss available options. The [employer] recommends amniocentesis be offered to women age 35 and older. [age] [facility] MULTIPLE GESTATION No . [facility] OSBR RISK 1 IN 2100 . [facility] RACE . [facility] RESULTS Report . [facility] TEST RESULTS: Negative . [facility] WEIGHT 177 . lbs [facility] N LMP [id number] 2 18 N 1 Y 177 N N N White/ [facility] RECURRENT VAGINITIS (HTRX)on 06-13-2024 ATOPOBIUM VAGINAE 30.301 Abnormal [facility] ATOPOBIUM VAGINAE Detected Abnormal [facility] BVAB 2,3 (BACTERIAL VAGINOSIS ASSOCIATED BACTERIA 2, 3); MOBILUNCUS SPP 0 [facility] BVAB 2,3 (BACTERIAL VAGINOSIS ASSOCIATED BACTERIA 2, 3); MOBILUNCUS SPP Not detected [facility] KAITLYNN ALBICANS, PARAPSILOSIS, TROPICALIS 0 [facility] KAITLYNN ALBICANS, PARAPSILOSIS, TROPICALIS Not detected [facility] KAITLYNN GLABRATA 0 [facility] KAITLYNN GLABRATA Not detected [facility] KAITLYNN KRUSEI 0 [facility] KAITLYNN KRUSEI Not detected [facility] CHLAMYDIA TRACHOMATIS 0 [facility] CHLAMYDIA TRACHOMATIS Not detected [facility] GARDNERELLA VAGINALIS 21.1 Abnormal [facility] GARDNERELLA VAGINALIS Detected Abnormal [facility] Interpretation and review of laboratory results Abnormal [facility] MEGASPHAERA (TYPES 1, 2) 0 [facility] MEGASPHAERA (TYPES 1, 2) Not detected [facility] MYCOPLASMA GENITALIUM 0 [facility] MYCOPLASMA GENITALIUM Not detected [facility] NEISSERIA GONORRHOEAE 0 [facility] NEISSERIA GONORRHOEAE Not detected [facility] TRICHOMONAS VAGINALIS 0 [facility] TRICHOMONAS VAGINALIS Not detected [facility] Urinalysis macro (dipstick) panel (U)on 06-11-2024 Bilirubin, UA Negative Negative - 4(70) +++ mg/dL [facility] Blood, UA Negative Negative - 50 Yang/mcL [facility] Clarity, UA Clear [facility] Color, UA Yellow [facility] Glucose, UA Negative Negative - 1999(110) ++++ mg/dL [facility] Interpretation and review of laboratory results Normal [facility] Ketones, UA Negative Negative - 160(16) ++++ mg/dL [facility] Leukocytes, UA Negative Negative - 500+++ Derik/mcL [facility] Nitrite, UA Negative Negative - Positive [facility] pH, UA 5.5 5 - 9 [facility] Protein, UA Negative Negative - 1999(20) ++++ mg/dL [facility] Spec Grav, UA 1.02 1 - 1.03 [facility] Urobilinogen, UA 1.0 0.2 - 12 mg/dL [facility] Urinalysis macro (dipstick) panel (U)on 05-08-2024 Bilirubin, UA Negative Negative - 4(70) +++ mg/dL [facility] Blood, UA Positive Negative - 50 Yang/mcL [facility] Comment on above: trace-intact Clarity, UA Clear [facility] Color, UA Yellow [facility] Glucose, UA Negative Negative - 1999(110) ++++ mg/dL [facility] Interpretation and review of laboratory results Abnormal [facility] Ketones, UA Negative Negative - 160(16) ++++ mg/dL [facility] Leukocytes, UA Negative Negative - 500+++ Derik/mcL [facility] Nitrite, UA Negative Negative - Positive [facility] pH, UA 6 5 - 9 [facility] Protein, UA Negative Negative - 1999(20) ++++ mg/dL [facility] Spec Grav, UA 1.025 1 - 1.03 [facility] Urobilinogen, UA 0.2 0.2 - 12 mg/dL [facility] ALL CBC WITH AUTO DIFFon BASOPHILS ABSOLUTE AUTO 0.0 [facility] Basophils/100 WBC (Bld) 0.4 % 0.2 - 2.0 % [facility] Eosinophils/100 WBC (Bld) 0.9 % 0.9 - 7.0 % [facility] Erythrocyte distribution width (RBC) [Ratio] 11.9 % 11.0 - 15.0 % [facility] Hematocrit (Bld) [Volume fraction] 37.1 % 36.0 - 48.0 % [facility] Hemoglobin (Bld) [Mass/Vol] 12.6 g/dL 12.0 - 16.0 g/dL [facility] IMMATURE GRANULOCYTES ABS AUTO 0.03 [facility] Immature granulocytes/100 WBC (Bld) 0.4 % 0.0 - 0.5 % [facility] Interpretation and review of laboratory results Abnormal [facility] LYMPHOCYTES ABSOLUTE AUTO 1.7 [facility] Lymphocytes/100 WBC (Bld) 21.2 % 20.5 - 60.0 % [facility] MCH (RBC) [Entitic mass] 31.7 pg 26.7 - 34.0 pg [facility] MCHC (RBC) [Mass/Vol] 34.0 g/dL 29.9 - 35.2 g/dL [facility] MCV (RBC) [Entitic vol] 93.5 fL 81.0 - 99.0 fL [facility] MONOCYTES ABSOLUTE AUTO 0.6 [facility] Monocytes/100 WBC (Bld) 6.8 % 1.7 - 12.0 % [facility] NEUTROPHILS ABSOLUTE AUTO 5.7 [facility] Neutrophils/100 WBC (Bld) 70.3 % 43.0 - 75.0 % [facility] Platelet mean volume (Bld) [Entitic vol] 9.8 fL 9.5 - 13.5 fL [facility] TBH EO # 0.1 [facility]H PLT 219 [facility] TB RBC 3.97 Low [facility] TB WBC 8.1 [facility] HCG ( test) Ql (U)o n 04-05-2024 Interpretation and review of laboratory results Abnormal [facility] Preg Test, Ur Positive [facility] Urinalysis macro (dipstick) panel (U)on 04-05-2024 Bilirubin, UA Negative Negative - 4(70) +++ mg/dL [facility] Blood, UA Positive Negative - 50 Yang/mcL [facility] Comment on above: trace intact Clarity, UA Clear [facility] Color, UA Yellow [facility] Glucose, UA Negative Negative - 2000(110) ++++ mg/dL [facility] Interpretation and review of laboratory results Abnormal [facility] Ketones, UA Negative Negative - 160(16) ++++ mg/dL [facility] Leukocytes, UA Trace Negative - 500+++ Derik/mcL [facility] Nitrite, UA Negative Negative - Positive [facility] pH, UA 6.5 5 - 9 [facility] Protein, UA Negative Negative - 2000(20) ++++ mg/dL [facility] Spec Grav, UA 1.015 1 - 1.03 [facility] Urobilinogen, UA 0.2 0.2 - 12 mg/dL [facility] CBC AUTO DIFFon 06-05-2022 BASO # 0.0 103/ul Normal 0.0-0.1 [facility] Comment on above: Performed By: #### C BC #### [facility] [address] [place] [address] [address] Sandi Michelle Basophils/100 WBC (Bld) 0.2 % Normal 0.2-2.0 [facility] Comment on above: Performed By: #### C BC #### [facility] [address] [place] [address] [address] Sandi Michelle EO # 0.0 103/ul Normal 0.0-0.7 [facility] Comment on above: Performed By: #### C BC #### [facility] [address] [place] [address] [address] Sandi Michelle Eosinophils/100 WBC (Bld) 0.2 % Critically low 0.9-7.0 [facility] Comment on above: Performed By: #### C BC #### [facility] [address] [place] [address] [address] Sandi Michelle Erythrocyte distribution width (RBC) [Ratio] 14.3 % Normal 11.0-15.0 [facility] Comment on above: Performed By: #### C BC #### [facility] [address] [place] [address] Dr. Sandi Michelle Hematocrit (Bld) [Volume fraction] 27.3 % Critically low 36.0-48.0 [facility] Comment on above: Performed By: #### C BC #### [facility] [address] [place] [address] Dr. Sandi Michelle Hemoglobin (Bld) [Mass/Vol] 9.3 g/dL Critically low 12.0-16.0 [facility] Comment on above: Result Comment: DELI VERY Performed By: #### C BC #### [facility] [address] [place] [address] Dr. Sandi Michelle IG # 0.14 10e3/ul Critically high 0.00-0.03 [facility] Comment on above: Performed By: #### C BC #### [facility] [address] [place] [address] Dr. Snadi Michelle IG % 1.1 % Critically high 0.0-0.5 [facility] Comment on above: Performed By: #### C BC #### [facility] [address] [place] [address] Dr. Sandi Michelle LYMPH # 1.6 103/ul Normal 1.2-3.8 [facility] Comment on above: Performed By: #### C BC #### [facility] [address] [place] [address] Dr. Sandi Michelle Lymphocytes/100 WBC (Bld) 12.1 % Critically low 20.5-60.0 [facility] Comment on above: Performed By: #### C BC #### [facility] [address] [place] [address] Dr. Sandi Michelle MANUAL DIFF REQ NO Normal [facility] Comment on above: Performed By: #### C BC #### [facility] [address] [place] [address] Dr. Sandi Michelle MCH (RBC) [Entitic mass] 31.8 pg Normal 26.7-34.0 [facility] Comment on above: Performed By: #### C BC #### [facility] [address] [place] [address] [address] Sandi Michelle MCHC (RBC) [Mass/Vol] 34.1 g/dL Normal 29.9-35.2 [facility] Comment on above: Performed By: #### C BC #### [facility] [address] [place] [address] [address] Sandi Michelle MCV (RBC) [Entitic vol] 93.5 fL Normal 81.0-99.0 [facility] Comment on above: Performed By: #### C BC #### [facility] [address] [place] [address] [address] Sandi Michelle MONO # 0.9 103/ul Critically high 0.3-0.8 [facility] Comment on above: Performed By: #### C BC #### [facility] [address] [place] [address] [address] Sandi Michelle Monocytes/100 WBC (Bld) 6.8 % Normal 1.7-12.0 [facility] Comment on above: Performed By: #### C BC #### [facility] [address] [place] [address] [address] Sandi Michelle NEUT # 10.3 103/ul Critically high 1.4-6.5 [facility] Comment on above: Performed By: #### C BC #### [facility] [address] [place] [address] [address] Sandi Michelle Neutrophils/100 WBC (Bld) 79.6 % Critically high 43.0-75.0 [facility] Comment on above: Performed By: #### C BC #### [facility] [address] [place] [address] [address] Sandi Michelle Platelet mean volume (Bld) [Entitic vol] 9.8 fL Normal 9.5-13.5 [facility] Comment on above: Performed By: #### C BC #### [facility] [address] [place] [address] [address] Sandi Michelle PLT 138 103/ul Critically low 150-450 [facility] Comment on above: Performed By: #### C BC #### [facility] [address] [place] [address] [address] Sandi Michelle RBC 2.92 106/ul Critically low 4.20-5.40 [facility] Comment on above: Performed By: #### C BC #### [facility] [address] [place] [address] [address] Sandi Michelle WBC 12.9 103/ul Critically high 4.0-11.0 [facility] Comment on above: Performed By: #### C BC #### [facility] [address] [place] [address] Dr. Sandi Michelle CBC AUTO DIFFon 06-04-2022 BASO # 0.0 103/ul Normal 0.0-0.1 [facility] Comment on above: Performed By: #### C BC #### [facility] [address] [place] [address] Dr. Sandi Michelle Basophils/100 WBC (Bld) 0.3 % Normal 0.2-2.0 [facility] Comment on above: Performed By: #### C BC #### [facility] [address] [place] [address] Dr. Sandi Michelle EO # 0.0 103/ul Normal 0.0-0.7 [facility] Comment on above: Performed By: #### C BC #### [facility] [address] [place] [address] Dr. Sandi Michelle Eosinophils/100 WBC (Bld) 0.1 % Critically low 0.9-7.0 [facility] Comment on above: Performed By: #### C BC #### [facility] [address] [place] [address] Dr. Sandi Michelle Erythrocyte distribution width (RBC) [Ratio] 14.4 % Normal 11.0-15.0 [facility] Comment on above: Performed By: #### C BC #### [facility] [address] [place] [address] Dr. Sandi Michelle Hematocrit (Bld) [Volume fraction] 37.2 % Normal 36.0-48.0 [facility] Comment on above: Performed By: #### C BC #### [facility] [address] [address] [address] Sandi Michelle Hemoglobin (Bld) [Mass/Vol] 12.9 g/dL Normal 12.0-16.0 [facility] Comment on above: Performed By: #### C BC #### [facility] [address] [place] [address] Dr. Sandi Michelle IG # 0.23 10e3/ul Critically high 0.00-0.03 [facility] Comment on above: Performed By: #### C BC #### [facility] [address] [place] [address] Dr. Sandi Michelle IG % 1.6 % Critically high 0.0-0.5 [facility] Comment on above: Performed By: #### C BC #### [facility] [address] [place] [address] Dr. Sandi Michelle LYMPH # 2.3 103/ul Normal 1.2-3.8 [facility] Comment on above: Performed By: #### C BC #### [facility] [address] [place] [address] Dr. Sandi Michelle Lymphocytes/100 WBC (Bld) 16.0 % Critically low 20.5-60.0 [facility] Comment on above: Performed By: #### C BC #### [facility] [address] [place] [address] Dr. Sandi Mihcelle MANUAL DIFF REQ NO Normal [facility] Comment on above: Performed By: #### C BC #### [facility] [address] [place] [address] Dr. Sandi Michelle MCH (RBC) [Entitic mass] 32.3 pg Normal 26.7-34.0 [facility] Comment on above: Performed By: #### C BC #### [facility] [address] [place] [address] Dr. Sandi Michelle MCHC (RBC) [Mass/Vol] 34.7 g/dL Normal 29.9-35.2 [facility] Comment on above: Performed By: #### C BC #### [facility] [address] [address] [address] Sandi Michelle MCV (RBC) [Entitic vol] 93.0 fL Normal 81.0-99.0 [facility] Comment on above: Performed By: #### C BC #### [facility] [address] [address] [address] Sandi Michelle MONO # 0.8 103/ul Normal 0.3-0.8 [facility] Comment on above: Performed By: #### C BC #### [facility] [address] [address] [address] Sandi Michelle Monocytes/100 WBC (Bld) 5.8 % Normal 1.7-12.0 [facility] Comment on above: Performed By: #### C BC #### [facility] [address] [address] [address] Sandi Michelle NEUT # 10.7 103/ul Critically high 1.4-6.5 [facility] Comment on above: Performed By: #### C BC #### [facility] [address] [address] [address] Sandi Michelle Neutrophils/100 WBC (Bld) 76.2 % Critically high 43.0-75.0 [facility] Comment on above: Performed By: #### C BC #### [facility] [address] [place] [address] Dr. Sandi Michelle Platelet mean volume (Bld) [Entitic vol] 10.9 fL Normal 9.5-13.5 [facility] Comment on above: Performed By: #### C BC #### [facility] [address] [address] [address] Sandi Michelle PLT 194 103/ul Normal 150-450 [facility] Comment on above: Performed By: #### C BC #### [facility] [address] [place] [address] Dr. Sandi Michelle RBC 4.00 106/ul Critically low 4.20-5.40 [facility] Comment on above: Performed By: #### C BC #### [facility] [address] [address] [address] Sandi Michelle WBC 14.0 103/ul Critically high 4.0-11.0 [facility] Comment on above: Performed By: #### C BC #### [facility] [address] [address] [address] Sandi Michelle [facility] SARS-CoV-2 (COVID-19) RNA ALETHEA+probe Ql (Unsp spec) Not detected Normal NOT DETECTED [facility] Comment on above: Result Comment: When [...] for this test is supported by the [employer]el[employer] Eng[employer]ver of Health and Human Service's declaration that [...] be used). Performed By: #### C VDTBH ####[facility] [address] [address]Dr. Sandi Michelle DRUG SCREEN RAPID (URINE)on 06-04-2022 AMP Negative Normal NEGATIVE [facility] Comment on above: Performed By: #### D RUGRPD ####[facility] [address] [place], [place] [address]Da. Sandi Michelle BAR Negative Normal NEGATIVE [facility] Comment on above: Performed By: #### D RUGRPD ####[facility] [address] [place], [place] [address]LzDen Michelle BUP Negative Normal NEGATIVE [facility] Comment on above: Performed By: #### D RUGRPD ####[facility] [address] [place], [place] [id number]. Sandi Michelle BZO Negative Normal NEGATIVE [facility] Comment on above: Performed By: #### D RUGRPD ####[facility] [address] [place], [place] [address]Dr. Sandi Michelle NINO Negative Normal NEGATIVE [facility] Comment on above: Performed By: #### D RUGRPD ####[facility] [address] [place], [place] [address]Dr. Sandi Michelle CUT-OFFS SEE BELOW Normal [facility] Comment on above: Result Comment: AMP (Amphetamine): 500ng/mL, BAR (Barbituates): 200 ng/mL, BZO (Benzodiazepines): 150 ng/mL, BUP (Buprenorphine): 10 ng/mL, NINO (Cocaine): 150 ng/mL, mAMP (Methamphetamine): 500 ng/mL, MTD (Methadone): 200 ng/mL, OPI (Opiates): 100 ng/mL, OXY (Oxycodone): 100 ng/mL, PCP (Phencyclidine): 25 ng/mL, PPX (Propoxyphene): 300 ng/mL, THC (Cannabinoids): 50 ng/mL, TCA (Trycyclic Antidepressants): 300 ng/mL Performed By: #### D RUGRPD ####[facility] [address] [place], [place] [address]Dr. Sandi Michelle DRUG CUT HEADER DRUG CLASS TEST SYSTEM CUT-OFF CONCENTRATIONS ARE FOLLOWS: Normal [facility] Comment on above: Performed By: #### D RUGRPD ####[facility] [address] [place], [place] [address]Dr. Sandi Michelle mAMP Negative Normal NEGATIVE [facility] Comment on above: Performed By: #### D RUGRPD ####[facility] [address] [place], [place] [address]Dr. Sandi Michelle MTD Negative Normal NEGATIVE [facility] Comment on above: Performed By: #### D RUGRPD ####[facility] [address] [place], [place] [address]Dr. Sandi Michelle OPI Negative Normal NEGATIVE [facility] Comment on above: Performed By: #### D RUGRPD ####[facility] [address] [id number]. Sandi Michelle OXY Negative Normal NEGATIVE [facility] Comment on above: Performed By: #### D RUGRPD ####[facility] [address] [id number]. Sandi Michelle PCP Negative Normal NEGATIVE [facility] Comment on above: Performed By: #### D RUGRPD ####[facility] [address] [address]Dr. Sandi Michelle PPX Negative Normal NEGATIVE [facility] Comment on above: Performed By: #### D RUGRPD ####[facility] [address] [address]Dr. Sandi Michelle TCA Negative Normal NEGATIVE [facility] Comment on above: Performed By: #### D RUGRPD ####[facility] [address] [address]Dr. Sandi Michelle THC Negative Normal NEGATIVE [facility] Comment on above: Performed By: #### D RUGRPD ####[facility] [address] [address]Dr. Sandi Michelle TYPE AND SCREENon 06-04-2022 TYPE AND SCREEN Negative Normal [facility] Comment on above: Performed By: #### T NS ####[facility] [address] [place], [place] [address]Dr. Sandi Michelle US PREG BIOPHY W NON [...] authenticated by: RIGO FISCHER Date: 2022-05-30 08:30 [facility] GROUP B STREP CULTUREon 11-0 S. agalactiae Ag Ql (Unsp spec) Culture Observations: NEGATIVE FOR GROUP B STREPTOCOCCUS. Normal [facility] Comment on above: Performed By: #### G BSCX ####[facility] [address] [place], [place] [address]FvDen Michelle US PREG BIOPHY W NON STRESSo [...] by: RIGO FISCHER Date: 2022-05-23 09:41 Normal [facility] US PREG BIOPHY W NON STRESSo [...] by: RIGO FISCHER Date: 2022-05-16 16:10 Normal [facility] US PREG GROWTHon 05-11-2022 US PREG GROWTH EXAMINATION: US PREG GROWTH, US PREG CERVICAL LENGTH HISTORY: Excessive growth affecting management of mother COMPARISON: Ultrasound growth 04/27/2022 FINDINGS: Heart Rate: 137.8 bpm (accession [id number]), 167.3 bpm (accession [id number]) Number: 1.0 Position: BREECH Amniotic Fluid Volume: [...] by: TIFF BAUMANN Date: 2022-05-11 19:19 Normal [facility] US PREG GROWTHon 04-27-2022 US PREG [...] TIFF BAUMANN Date: 2022-04-27 20:51 Normal [facility] GLUCOSE - 1HRon 03-15-2022 Glucose [Mass/Vol] 137 mg/dL Critically high 74-106 [facility] Comment on above: Performed By: #### C BC #### [facility] [address] [place] [address] Dr. Sandi Michelle HEMOGRAM AND PLATELon 2021 Hematocrit (Bld) [Volume fraction] 34.9 % Critically low 36.0-48.0 [facility] Comment on above: Performed By: #### C BC #### [facility] [address] [place] [address] Dr. Sandi Michelle Hemoglobin (Bld) [Mass/Vol] 11.5 g/dL Critically low 12.0-16.0 [facility] Comment on above: Performed By: #### C BC #### [facility] [address] [place] [address] Dr. Sandi Michelle MCH (RBC) [Entitic mass] 31.8 pg Normal 26.7-34.0 [facility] Comment on above: Performed By: #### C BC #### [facility] [address] [place] [address] Dr. Sandi Michelle MCHC (RBC) [Mass/Vol] 33.0 g/dL Normal 29.9-35.2 [facility] Comment on above: Performed By: #### C BC #### [facility] [address] [place] [address] Dr. Sandi Michelle MCV (RBC) [Entitic vol] 96.4 fL Normal 81.0-99.0 [facility] Comment on above: Performed By: #### C BC #### [facility] [address] [place] [address] Dr. Sandi Michelle PLT 225 103/ul Normal 150-450 [facility] Comment on above: Performed By: #### C BC #### [facility] [address] [place] [address] Dr. Sandi Michelle RBC 3.62 106/ul Critically low 4.20-5.40 [facility] Comment on above: Performed By: #### C BC #### [facility] [address] [address] [address] Sandi Michelle WBC 12.9 103/ul Critically high 4.0-11.0 [facility] Comment on above: Performed By: #### C BC #### [facility] [address] [address] [address] Sandi Michelle CHLAMYDIA/GONOCOCCUS ALETHEA (SW AB/URINE/PAPon 02-04-2022 Chlamydia trachomatis, ALETHEA Negative Normal Negative [facility] Comment on above: Performed By: #### C T/NGNA #### [facility] [address] [address] [address] Sandi Michelle Neisseria gonorrhoeae, ALETHEA Negative Normal Negative [facility] Comment on above: Performed By: #### C T/NGNA #### [facility] [address] [address] [address] Sandi Michelle PAP ACOG PANEL 2: 30 to 65on 02-04-2022 . . Normal [facility] Comment on above: Result Comment: Perf ormed at: WB Performed By: #### 4 [id number] ####[facility] [address] [address]Dr. Sandi Michelle Age Gdln ACOG Testing 30-65 Normal [facility] Comment on above: Performed By: #### 4 [id number] ####[facility] [address] [address]Dr. Sandi Michelle DIAGNOSIS: Comment Normal [facility] Comment on above: Result Comment: NEGA TIVE FOR INTRAEPITHELIAL LESION OR MALIGNANCY. Performed at: WB Performed By: #### 4 [id number] ####[facility] [address] [address]Dr. Sandi Michelle HPV Aptima Negative Normal Negative [facility] Comment on above: Result Comment: This nucleic acid amplification test detects fourteen high-risk HPV types (16,18,31,33,35,39,45,51,52,56,58,59,66,68) without differentiation. Performed at: =G Performed By: #### 4 [id number] ####[facility] [address] [place], [place] [address]DrDen Michelle Methodology: Comment Normal [facility] Comment on above: Result Comment: This liquid based ThinPrep(R) pap test was screened with the use of an image guided system. Performed at: WB Performed By: #### 4 [id number] ####[facility] [address] [place], [place] [address]DrDen Michelle Note: Comment Normal [facility] Comment on above: Result Comment: The Pap smear is a screening test designed to aid in the detection of premalignant and malignant conditions of the uterine cervix. It is not a diagnostic procedure and should not be used as the sole means of detecting cervical cancer. Both false-positive and false-negative reports do occur. . Performed at: WB Performed By: #### 4 [id number] ####[facility] [address] [place], [place] [address]DrDen Michelle Performed by: Comment Normal [facility] Comment on above: Result Comment: Vikas Mcclellan, Senior Game Designer (ASCP) Performed at: WB Performed By: #### 4 [id number] ####[facility] [address] [place], [place] [address]DrDen Michelle Specimen adequacy: Comment Normal [facility] [place] Comment on above: Result Comment: Sati sfactory for evaluation. No endocervical component is identified. Performed at: WB Performed By: #### 4 [id number] ####[facility] [address] [place], [place] [address]DrDen Michelle VAGINITIS/VAGINOSIS DNA PROB Nicholas 02-03-2022 Kaitlynn species Negative Normal Negative [facility] Comment on above: Performed By: #### V AGINT ####[facility] [address] [place], [place] [address]DrDen Michelle Gardnerella vaginalis Negative Normal Negative [facility] Comment on above: Performed By: #### V AGINT ####[facility] [address] [place], [place] [address]DrDen Michelle Trichomonas vaginalis Negative Normal Negative [facility] Comment on above: Performed By: #### V AGINT ####[facility] [address] [place], [place] [address]InDen Sandi Michelle US PREG ANATOMY SINGLEon US [...] RIGO FISCHER Date: 2022-02-01 19:32 Normal [facility] AFP MATERNAL FOR SPINA BIFID Aon 01-21-2022 AFP MoM 1.24 Normal [facility] Comment on above: Performed By: #### A FPMAT ####[facility] [address] [place], [place] [address]Lk. Sandi Michelle AFP Value 55.2 ng/mL Normal [facility] Comment on above: Performed By: #### A FPMAT ####[facility] [address] [id number]. Sandi Michelle AFP, Serum for Spina Bifida Report Normal [facility] Comment on above: Performed By: #### A FPMAT ####[facility] [address] [id number]. Sanjuanitasonia Michelle Comment Comment Normal [facility] Comment on above: Result Comment: Iesha Sullivan, Ph.D., [facility] Director . References: Available Upon Request. . Multiples Of Median Cutoffs For AFP Elevations Bhandari 2.5 Black 2.8 IDD 2.0 Twins 4.5 Abbreviation Definitions IDD - Insulin Dep Diabetes OSBR - Open Spina Bifida Risk . For further inquiries contact [employer] [facility] at [phone]. . This test was developed and its performance characteristics determined by [employer]. It has not been cleared or approved by the Food and Drug Administration. Performed By: #### A FPMAT ####[facility] [address] [address]Dr. Sandi Michelle Gest Age Collection Date 18.1 weeks [facility] Comment on above: Performed By: #### A FPMAT ####[facility] [address] [id number]. Sandi Michelle Gestat, Age Based on JOSE Normal [facility] Comment on above: Result Comment: 05/26 Recalculations are not recommended when gestational dating by LMP and ultrasound are within 10 days. Performed By: #### A FPMAT ####[facility] [address] [id number]. Sandi Michelle Insulin Dep Diabetes Comment Normal [facility] Comment on above: Result Comment: Not provided. . Performed By: #### A FPMAT ####[facility] [address] [id number]. Sandi Michelle Interpretation Comment Normal [facility] Comment on above: Result Comment: [...] Customer Services to discuss available options. The [employer] recommends amniocentesis be offered to women age 35 and older. Performed By: #### A FPMAT ####[facility] [address] [id number]. Sandi Michelle [age] Normal [facility] Comment on above: Performed By: #### A FPMAT ####[facility] [address] [address]Dr. Sandi Michelle Multiple Gestation No Normal [facility] [place] Comment on above: Performed By: #### A FPMAT ####[facility] [address] [address]Dr. Sandi Michelle OSBR Risk 1 [place] 5748 Normal [facility] Comment on above: Performed By: #### A FPMAT ####[facility] [address] [id number]. Sandi Michelle PDF . Normal [facility] Comment on above: Performed By: #### A FPMAT ####[facility] [address] [id number]. Sandi Michelle Race Normal [facility] Comment on above: Performed By: #### A FPMAT ####[facility] [address] [id number]. Sandi Michelle Test Results: Negative Normal [facility] Comment on above: Performed By: #### A FPMAT ####[facility] [address] [address]Dr. Sandi Michelle HEP B SURFACE ANTIGEN SCREEN on 11-22-2021 HBsAg Screen Negative Normal Negative [facility] Comment on above: Performed By: #### H BSANS ####[facility] [address] [place], [place] [address]KpDr. Sandi Michelle HEPATITIS C VIRUS AB W/ REFL EX QUANTon 11-22-2021 HCV AB 0.1 s/co ratio Normal 0.0-0.9 [facility] Comment on above: Performed By: #### C BC #### [facility] [address] [id number] Sandi Michelle Interpretation: Comment Normal [facility] Comment on above: Result Comment: Nega tive Not infected with HCV, unless recent infection is suspected or other evidence exists to indicate HCV infection. Performed By: #### C BC #### [facility] [address] [address] [address] Sandi Michelle HIV 1 AND 2 WITH REFLEXon HIV Screen 4th Generation wRfx Non-Reactive Normal Non Reactive [facility] Comment on above: Result Comment: HIV Negative HIV-1/HIV-2 antibodies and HIV-1 p24 antigen were NOT detected. There is no laboratory evidence of HIV infection. Performed By: #### H IV12 ####[facility] [address] [place], [place] [address]HfDr. Sandi Michelle RPR QUANTon 11-22-2021 Rapid Plasma Reagin, Quant Non-Reactive Normal NonRea<1:1 [facility] Comment on above: Result Comment: Plea se Note: This test does not meet current guidelines for screening and diagnosis of syphilis. This test is intended for following treatment response in patients being treated for syphilis infection. To screen for syphilis infection, a reflex cascade that includes both RPR and a treponema-specific assay should be utilized, such as Treponema pallidum (Syphilis) Screening [place] (148497) or Rapid Plasma Reagin (RPR) Test With Reflex to Quantitative RPR and Confirmatory Treponema pallidum Antibodies (408591). Performed By: #### C BC #### [facility] [address] [address] [address] Sandi Michelle RUBELLA AB IGGon 11-22-2021 Rubella Antibodies, IgG 9.33 index Normal Immune >0.99 [facility] Comment on above: Result Comment: Non- immune <0.90 Equivocal 0.90 - 0.99 Immune >0.99 Performed By: #### C BC #### [facility] [address] [place] [address] Dr. Sandi Michelle CBC AUTO DIFFon 11-21-2021 BASO # 0.0 103/ul Normal 0.0-0.1 [facility] Comment on above: Performed By: #### C BC #### [facility] [address] [place] [address] Dr. Sandi Michelle Basophils/100 WBC (Bld) 0.4 % Normal 0.2-2.0 [facility] Comment on above: Performed By: #### C BC #### [facility] [address] [place] [address] Dr. Sandi Michelle EO # 0.1 103/ul Normal 0.0-0.7 [facility] Comment on above: Performed By: #### C BC #### [facility] [address] [place] [address] Dr. Sandi Michelle Eosinophils/100 WBC (Bld) 0.6 % Critically low 0.9-7.0 [facility] Comment on above: Performed By: #### C BC #### [facility] [address] [place] [address] Dr. Sandi Michelle Erythrocyte distribution width (RBC) [Ratio] 11.9 % Normal 11.0-15.0 [facility] Comment on above: Performed By: #### C BC #### [facility] [address] [place] [address] Dr. Sandi Michelle Hematocrit (Bld) [Volume fraction] 37.1 % Normal 36.0-48.0 [facility] Comment on above: Performed By: #### C BC #### [facility] [address] [place] [address] Dr. Sandi Michelle Hemoglobin (Bld) [Mass/Vol] 12.2 g/dL Normal 12.0-16.0 [facility] Comment on above: Performed By: #### C BC #### [facility] [address] [place] [address] Dr. Sandi Michelle IG # 0.03 10e3/ul Normal 0.00-0.03 [facility] Comment on above: Performed By: #### C BC #### [facility] [address] [place] [address] Dr. Sandi Michelle IG % 0.4 % Normal 0.0-0.5 [facility] Comment on above: Performed By: #### C BC #### [facility] [address] [place] [address] Dr. Sandi Michelle LYMPH # 1.8 103/ul Normal 1.2-3.8 [facility] Comment on above: Performed By: #### C BC #### [facility] [address] [place] [address] Dr. Sandi Michelle Lymphocytes/100 WBC (Bld) 23.4 % Normal 20.5-60.0 [facility] Comment on above: Performed By: #### C BC #### [facility] [address] [place] [address] Dr. Sandi Michelle MANUAL DIFF REQ NO Normal [facility] Comment on above: Performed By: #### C BC #### [facility] [address] [place] [address] Dr. Sandi Michelle MCH (RBC) [Entitic mass] 31.4 pg Normal 26.7-34.0 [facility] Comment on above: Performed By: #### C BC #### [facility] [address] [place] [address] Dr. Sandi Michelle MCHC (RBC) [Mass/Vol] 32.9 g/dL Normal 29.9-35.2 [facility] Comment on above: Performed By: #### C BC #### [facility] [address] [place] [address] Dr. Sandi Michelle MCV (RBC) [Entitic vol] 95.6 fL Normal 81.0-99.0 [facility] Comment on above: Performed By: #### C BC #### [facility] [address] [place] [address] Dr. Sandi Michelle MONO # 0.5 103/ul Normal 0.3-0.8 [facility] Comment on above: Performed By: #### C BC #### [facility] [address] [address] [address] Sandi Michelle Monocytes/100 WBC (Bld) 6.6 % Normal 1.7-12.0 [facility] Comment on above: Performed By: #### C BC #### [facility] [address] [address] [address] Sandi Michelle NEUT # 5.4 103/ul Normal 1.4-6.5 [facility] Comment on above: Performed By: #### C BC #### [facility] [address] [place] [address] Dr. Sandi Michelle Neutrophils/100 WBC (Bld) 68.6 % Normal 43.0-75.0 [facility] Comment on above: Performed By: #### C BC #### [facility] [address] [place] [address] Dr. Sandi Michelle Platelet mean volume (Bld) [Entitic vol] 10.1 fL Normal 9.5-13.5 [facility] Comment on above: Performed By: #### C BC #### [facility] [address] [place] [address] Dr. Sandi Michelle PLT 237 103/ul Normal 150-450 [facility] Comment on above: Performed By: #### C BC #### [facility] [address] [place] [address] Dr. Sandi Michelle RBC 3.88 106/ul Critically low 4.20-5.40 [facility] [facility] Comment on above: Performed By: #### C BC #### [facility] [address] [place] [address] Dr. Sandi Michelle WBC 7.9 103/ul Normal 4.0-11.0 [facility] Comment on above: Performed By: #### C BC #### [facility] [address] [place] [address] Dr. Sandi Michelle CULTURE URINEon 11-21-2021 CULTURE URINE Culture Observations : LIGHT GROWTH OF MIXED GENITAL MENDEZ. NO POTENTIAL PATHOGENS SEEN. Normal [facility] Comment on above: Performed By: #### U RCX #### [facility] [address] [address] [address] Sandi Michelle GLYCOHEMOGLOBIN A1Con 2021 ADA RECOMMENDATION SEE BELOW Normal [facility] Comment on above: Result Comment: ADA RECOMMENDED LIMIT 4.0 - 6.0 ADA THERAPEUTIC TARGET < 7.0 ACTION SUGGESTED > 7.0 Performed By: #### A 1C ####[facility] [address] [address]Dr. Sandi Michelle Glucose [Mass/Vol] 103 mg/dL Normal [facility] Comment on above: Performed By: #### A 1C ####[facility] [address] [address]Dr. Sandi Michelle HbA1c (Bld) [Mass fraction] 5.2 % Normal 4.5-6.2 [facility] Comment on above: Performed By: #### A 1C ####[facility] [address] [address]Dr. Sandi Michelle TYPE AND SCREENon 11-21-2021 TYPE AND SCREEN Negative Normal [facility] Comment on above: Performed By: #### T NS #### [facility] [address] [address] [address] Sandi Michelle US PREG TVon 11-03-2021 [...] TIFF BAUMANN Date: 2021-11-03 07:19 Normal [facility] PREG QUANT HCGon 03-23-2022 HCG QUANT 469 mIU/mL Normal [facility] Comment on above: Performed By: #### P REGQNT #### [facility] [address] [address] [address] Sandi Michelle HCG RANGE SEE BELOW Normal [facility] Comment on above: Result Comment: 5-50 0-1 WEEK 40-300 1-2 WEEKS 100-1,000 2-3 WEEKS 500-6,000 3-4 WEEKS 5,000-200,000 1-2 MONTHS 10,000-100,000 2-3 MONTHS 3,000-50,000 2ND TRIMESTER 1,000-50,000 3RD TRIMESTER Performed By: #### P REGQNT #### [facility] [address] [address] [address] Sandi Michelle PREG QUANT HCGon 10-12-2021 HCG QUANT 184 mIU/mL Normal [facility] Comment on above: Performed By: #### C BC #### [facility] [address] [address] [address] Sandi Michelle HCG RANGE SEE BELOW Normal [facility] Comment on above: Result Comment: 5-50 0-1 WEEK 40-300 1-2 WEEKS 100-1,000 2-3 WEEKS 500-6,000 3-4 WEEKS 5,000-200,000 1-2 MONTHS 10,000-100,000 2-3 MONTHS 3,000-50,000 2ND TRIMESTER 1,000-50,000 3RD TRIMESTER Performed By: #### C BC #### [facility] [address] [address] [address] Sandi Michelle PROTEIN C FUNC ACTIVITYon Prt C Activity (Chromogenic) 130 % Normal [facility] Comment on above: Result Comment: Refe rence Range: 17 years and older: 73 - 180 Effective August 10, 2021 Prt C Activity, (Chromogenic) will be made non-orderable. This will not affect any profile that includes Prt C Activity (Chromogenic). [facility] offers [id number] Protein C Functional. For more information please contact your local [facility]. Performed By: #### P RCACT ####[facility] [address] [address]DrDen Michelle FACTOR V LEIDEN MUTATION CIARAN LYSISon 07-27-2021 Factor V Leiden Comment Normal [facility] Comment on above: Result Comment: Carmen lt: c.1601G>A (p.[id number]) - Not Detected . This result is not associated with an increased risk for venous thromboembolism. See Additional Clinical Information and Comments. Additional Clinical Information: Venous thromboembolism is a multifactorial disease influenced by genetic, environmental, and circumstantial risk factors. The c.1601G>A (p. [id number]) variant in the F5 gene, commonly referred [...] c.*97G>A variant and Factor V Leiden (PMID: 18586880). Additional risk factors include but are not [...] health care providers to discuss results at [phone]). . Test Details: Variant Analyzed: c.1601G>A (p. [id number]), referred to as Factor V Leiden . [...] developed and its performance characteristics determined by [employer] It has not been cleared or approved by the Food and Drug Administration. . References: Masoud S, Hawa GUTIÉRREZ, Randy R, Moses WW, Luis A JH; ACMG Professional Practice and Guidelines Committee. Addendum: [place] consensus statement on factor V Leiden mutation testing. [place] [facility]. 2020Sep 26. doi: 10.1038/z94937-669-23157-z. PMID: 12256395. . Miriam GAMING. Factor V Leiden Thrombophilia. 1998December 05 [Updated 2017Jul 28]. In: Jv MP, Delia HH, Ian RA, et al., editors. Jovita(R) [Internet]. [place] ([place]): [facility]; 6879-8881. Available from: https://www.ncbi.nlm.nih.gov/books/QGJ0757/ . Jonh S, Hawa GUTIÉRREZ, Francisco Javier X, Leobardo B, Ash EB, Deysi P, Mari CS; ACMG Laboratory Vault Person Committee. Venous thromboembolism laboratory testing (factor V Leiden and factor II c.*97G>A), 2018 update: a technical standard of the [place] and [employer] (ACMG). [place] [employer]. 2018 Jun;20(12):3871-3178. doi: 10.1038/s27352-779-3855-n. Epub 2017Apr 28. PMID: 33442315. . Martha Guillen, PhD, FACMG Lindsay Jaquez, PhD, FACMG Pete Brown, PhD, FACMG Geronimo Mcdaniel, PhD, FACMG Norm Hays, PhD, FACMG Maureen Mancilla, PhD, FACMG Performed By: #### F [facility] ####[address] [address]Dr. Sandi Michelle ANTITHROMBIN ACTIVITYon - Antithrombin Activity 102 % Normal 75-135 [facility] Comment on above: Result Comment: Dire ct Xa inhibitor anticoagulants such as rivaroxaban, apixaban and edoxaban will lead to spuriously elevated antithrombin activity levels possibly masking a deficiency. Performed By: #### C BC #### [facility] [address] [address] [address]Den Michelle B-2 GLYCOPROTEIN AB IGGon Beta-2 Glycoprotein I Ab, IgG <9 Normal 0-20 [facility] Comment on above: Result Comment: The reference interval reflects a 3SD or 99th percentile interval, which is thought to represent a potentially clinically significant result in accordance with the International Consensus Statement on the classification criteria for definitive antiphospholipid syndrome (APS). J Thromb Haem 2006;4:295-306. Performed By: #### B 2GPG ####[facility] [address] [address]Dr. Sandi Michelle B2-GLYCOPROTEIN 1 AB IGMon 0 07-25-2021 Beta-2 Glycoprotein I Ab, IgM <9 Normal 0-32 [facility] Comment on above: Result Comment: The reference interval reflects a 3SD or 99th percentile interval, which is thought to represent a potentially clinically significant result in accordance with the International Consensus Statement on the classification criteria for definitive antiphospholipid syndrome (APS). J Thromb Haem 2006;4:295-306. Performed By: #### B GLYIGM ####[facility] [address] [address]Dr. Sandi Michelle LUPUS ANTICOAGULANT W/REFLEX on 07-24-2021 aPTT Coag (Bld) [Time] 30.9 s Normal 0.0-51.9 [facility] Comment on above: Performed By: #### L UPUSRF ####[facility] [address] [address]Dr. Sandi Michelle dRVVT 33.0 sec Normal 0.0-47.0 [facility] Comment on above: Performed By: #### L UPUSRF ####[facility] [address] [address]Dr. Sandi Michelle Interpretation Comment: Normal [facility] Comment on above: Result Comment: No l upus anticoagulant was detected. Performed By: #### L UPUSRF ####[facility] [address] [id number]. Sandi Michelle PROTEIN S ANTIGENon 07-24-20 21 Protein S, Free 104 % Normal 61-136 [facility] Comment on above: Performed By: #### P RTSAG ####[facility] [address] [id number]. Sandi Michelle Protein S, Total 90 % Normal 60-150 [facility] Comment on above: Result Comment: This test was developed and its performance characteristics determined by [employer]. It has not been cleared or approved by the Food and Drug Administration. Performed By: #### P RTSAG ####[facility] [address] [address]Dr. Sanjuanitasonia Miguel Angel PROTEIN S, FUNCTIONALon - Protein S-Functional 107 % Normal 63-140 [facility] Comment on above: Result Comment: Prot ein S activity may be falsely increased (masking an abnormal, low result) in patients receiving direct Xa inhibitor (e.g., rivaroxaban, apixaban, edoxaban) or a direct thrombin inhibitor (e.g., dabigatran) anticoagulant treatment due to assay interference by these drugs. Performed By: #### C BC #### [facility] [address] [address] [address] Sandi Michelle ANTICARDIOLIPIN AB (JEANIE) IGG on 07-23-2021 Anticardiolipin Ab,IgG,Qn <9 Normal 0-14 [facility] Comment on above: Result Comment: Nega tive: <15 Indeterminate: 15 - 20 Low-Med Positive: >20 - 80 High Positive: >80 Performed By: #### C ARDLIP #### [facility] [address] [address] [address] Sandi Michelle ANTICARDIOLIPIN AB (JEANIE) IGM on 07-23-2021 Anticardiolipin Ab,IgM,Qn 12 MPL U/mL Normal 0-12 [facility] Comment on above: Result Comment: Nega tive: <13 Indeterminate: 13 - 20 Low-Med Positive: >20 - 80 High Positive: >80 Performed By: #### C WADI ####[facility] [address] [place], [place] [address]VsDen Michelle Vital Signs Date Time Vital Sign Value Performing Clinician Facility 09-12-2024 14:53-0500 Body mass index (BMI) [Ratio] 30.02 kg/m2 Lee Keyona DO Work Phone: [facility] 09-12-2024 14:53-0500 Body weight 84.37 kg Lee Keyona DO Work Phone: [facility] 09-12-2024 14:53-0500 Diastolic blood pressure 70 mm[Hg] Lee Keyona DO Work Phone: [facility] 09-12-2024 14:53-0500 Systolic blood pressure 120 mm[Hg] Lee Keyona DO Work Phone: [facility] 08-29-2024 15:30-0500 Body mass index (BMI) [Ratio] 29.92 kg/m2 Lee Keyona DO Work Phone: [facility] 08-29-2024 15:30-0500 Body weight 84.1 kg Lee Keyona DO Work Phone: [facility] 08-29-2024 15:30-0500 Diastolic blood pressure 70 mm[Hg] Lee Keyona DO Work Phone: [facility] 08-29-2024 15:30-0500 Systolic blood pressure 120 mm[Hg] Lee Keyona DO Work Phone: [facility] 08-09-2024 09:39-0500 Body mass index (BMI) [Ratio] 30.18 kg/m2 Lee Keyona DO Work Phone: [facility] 08-09-2024 09:39-0500 Body weight 84.82 kg Lee Keyona DO Work Phone: [facility] 08-09-2024 09:39-0500 Diastolic blood pressure 64 mm[Hg] Lee Keyona DO Work Phone: [facility] 08-09-2024 09:39-0500 Systolic blood pressure 114 mm[Hg] Lee Keyona DO Work Phone: [facility] 07-12-2024 09:59-0500 Body mass index (BMI) [Ratio] 29.39 kg/m2 Lee Keyona DO Work Phone: [facility] 07-12-2024 09:59-0500 Body weight 82.61 kg Lee Keyona DO Work Phone: [facility] 07-12-2024 09:59-0500 Diastolic blood pressure 68 mm[Hg] Lee Keyona DO Work Phone: [facility] 07-12-2024 09:59-0500 Systolic blood pressure 108 mm[Hg] Lee Keyona DO Work Phone: [facility] 06-11-2024 16:44-0500 Body mass index (BMI) [Ratio] 28.59 kg/m2 Lee Keyona DO Work Phone: [facility] 06-11-2024 16:44-0500 Body weight 80.34 kg Lee Keyona DO Work Phone: [facility] 06-11-2024 16:44-0500 Diastolic blood pressure 70 mm[Hg] Lee Keyona DO Work Phone: [facility] 06-11-2024 16:44-0500 Systolic blood pressure 108 mm[Hg] Lee Keyona DO Work Phone: [facility] 05-08-2024 15:11-0400 Body mass index (BMI) [Ratio] 27.76 kg/m2 Lee Keyona DO Work Phone: [facility] 05-08-2024 15:11-0400 Body weight 78.02 kg Lee Keyona DO Work Phone: [facility] 05-08-2024 15:11-0400 Diastolic blood pressure 70 mm[Hg] Lee Keyona DO Work Phone: [facility] 05-08-2024 15:11-0400 Systolic blood pressure 112 mm[Hg] Lee Keyona DO Work Phone: [facility] 04-05-2024 14:24-0400 Body mass index (BMI) [Ratio] 27.76 kg/m2 [facility] 04-05-2024 14:24040 Body weight 78.02 kg Nom Nurse [facility] 04-05-2024 14:24-0400 Diastolic blood pressure 68 mm[Hg] [facility] Nurse [facility] 04-05-2024 14:24040 Systolic blood pressure 118 mm[Hg] [facility] Nurse [facility] 01-21-2022 03:06-040 Body weight 72.[address] LEE RAND [facility] Comment on above: Performed By: #### A FPMAT ####[facility] [address] [place], [place] [address]LpDen Michelle Encounters Encounter Date Encounter Type Care Provider Facility Start: 09-18-2024 End: 09-18-2024 Clinisync Result Encounter Lee Keyona DO Work Phone: [facility] External Department Unsolicited Start: 09-18-2024 End: 09-18-2024 Clinisync Result Encounter Lee Keyona DO Work Phone: [facility] External Department Unsolicited Start: 09-12-2024 End: 09-12-2024 flow sheet Lee Keyona DO Work Phone: [facility] Comment on above: 31 weeks gestation o f ; Third trimester Start: 09-12-2024 End: 09-12-2024 ambulatory LEE KEYONA Not Available Start: 09-12-2024 End: 09-12-2024 Clinisync Result Encounter Lee Keyona DO Work Phone: [facility] External Department Unsolicited Start: 09-12-2024 End: 09-12-2024 [...] Encounter Lee Keyona DO Work Phone: [facility] External Department Unsolicited Start: 07-12-2024 End: 07-12-2024 Bamboo flowsheet Lee Keyona DO Work Phone: [facility] Start: 07-12-2024 End: 07-12-2024 Bamboo flowsheet Lee Keyona DO Work Phone: [facility] Start: 07-12-2024 End: 07-12-2024 flow sheet Lee Keyona DO Work Phone: [facility] Comment on above: Second trimester pre gnancy; with normal glucose tolerance test (GTT); 22 weeks gestation of ; Diabetes mellitus screening Start: 07-12-2024 End: 07-12-2024 ambulatory LEE KEYONA Not Available Start: 06-30-2024 End: 07-04-2024 Clinisync Result Encounter Lee Keyona DO Work Phone: [facility] External Department Unsolicited Start: 06-30-2024 End: 07-04-2024 Clinisync Result Encounter Lee Keyona DO Work Phone: [facility] External Department Unsolicited Start: 06-11-2024 End: 06-12-2024 ambulatory LEE KEYONA Not Available Start: 06-11-2024 End: 06-12-2024 flow sheet Lee Keyona DO Work Phone: [facility] Comment on above: Second trimester pre gnancy; 18 weeks gestation of ; Vaginal discharge; STD exposure; Screening, , for anatomic survey Start: 06-11-2024 End: 06-11-2024 Bamboo flowsheet Lee Keyona DO Work Phone: [facility] Start: 06-11-2024 End: 06-13-2024 Bamboo flowsheet Lee Keyona DO Work Phone: [facility] Start: 06-11-2024 End: 06-13-2024 [...] Routine [facility] [address] [place] [id number] Lee Rand, DO [address] [place] [address] [facility] Start: 09-12-2024 End: 09-12-2024 Patient encounter procedure 09/12/2024 2:30 PM EST Routine [facility] [address] [place] [id number] Lee Rand, DO [address] [place] [address] [facility] Start: 08-29-2024 End: 08-29-2024 [...] [facility] [address] [place] [address] Lee Rand, DO [address] [place] [address] [facility] Start: 07-31-2024 End: 07-31-2024 Patient encounter procedure 07/31/2024 1:00 PM EST Office Visit [facility] [address] [place] [address] Lee Rand, DO [address] [facility] [address] [place] [place], [place] [id number] [facility] Start: 07-12-2024 End: 07-12-2025 [...] mellitus screening Expected: 07/12/2024 (Approximate), Expires: 07/12/2025 [facility] Healthcare Comment on above: Expected: 07/12/2024 (Approximate), Expires: 07/12/2025 Start: 07-12-2024 End: 07-12-2024 Patient encounter procedure [facility] Comment on above: Arrived Start: 06-11-2024 End: 06-11-2024 Patient encounter procedure 06/11/2024 3:50 PM EST Routine [facility] [address] [place] [id number] Lee Rand, DO [address] [facility] [address] [facility] [address] [place], [place] [id number] [facility] Start: 06-11-2024 End: 12-09-2024 Alpha fetoprotein, maternal Alpha fetoprotein, maternal Lab Routine Second trimester Expected: 06/11/2024 (Approximate), Expires: 12/09/2024 [facility] Healthcare Comment on above: Expected: 06/11/2024 (Approximate), [...] gestational age Expected: 04/05/2024 (Approximate), Expires: 04/05/2025 [facility] Comment on above: Expected: 04/05/2024 (Approximate), Expires: 04/05/2025 Start: 04-05-2024 End: 04-05-2025 US Pelvis transvaginal US OB transvaginal Imaging Routine Missed menses Expected: 04/05/2024 (Approximate), Expires: 04/05/2025 [facility] Comment on above: Expected: 04/05/2024 (Approximate), Expires: 04/05/2025 Bacteria identified in Urine by Culture Urine culture Microbiology Routine Missed menses Ordered: 04/05/2024 [facility] Comment on above: Ordered: 04/05/2024 CBC W Auto Different ial panel - Blood CBC and differential Lab Routine Missed menses Ordered: 04/05/2024 [facility] Comment on above: Ordered: 04/05/2024 CHLAMYDIA TRACHOMATI S (GENITO/STI) CHLAMYDIA TRACHOMATIS (GENITO/STI) Lab Routine STD exposure Ordered: 06/11/2024 [facility] Comment on above: Ordered: 06/11/2024 Hemoglobin A1c/Hemoglobin.total in Blood Hemoglobin A1c Lab Routine Missed menses Ordered: 04/05/2024 [facility] Comment on above: Ordered: 04/05/2024 Hepatitis B virus surface Ag [Presence] in Serum or Plasma by Immunoassay Hepatitis B surface antigen Lab Routine Missed menses Ordered: 04/05/2024 [facility] Comment on above: Ordered: 04/05/2024 Hepatitis C virus Ab [Presence] in Serum or Plasma by Immunoassay Hepatitis C antibody Lab Routine Missed menses Ordered: 04/05/2024 [facility] Comment on above: Ordered: 04/05/2024 HIV-1/HIV-2 antigen/antibody combination immunoassay HIV-1 and HIV-2 antibodies Lab Routine Missed menses Ordered: 04/05/2024 [facility] Comment on above: Ordered: 04/05/2024 Neisseria gonorrhoea e DNA [Presence] in Unspecified specimen by ALETHEA with probe detection Neisseria gonorrhea DNA probe, direct Lab Routine STD exposure Ordered: 06/11/2024 [facility] Comment on above: Ordered: 06/11/2024 Reagin Ab [Presence] in Serum by RPR RPR Lab Routine Missed menses Ordered: 04/05/2024 [facility] Comment on above: Ordered: 04/05/2024 Rubella antibody, IgG Rubella an tibody, IgG Lab Routine Missed menses Ordered: 04/05/2024 [facility] Comment on above: Ordered: 04/05/2024 SURESWAB(R) ADVANCED VAGINITIS PLUS, TMA SURESWAB(R) ADVANCED VAGINITIS PLUS, TMA Pathology and Cytology Routine Vaginal discharge Ordered: 06/11/2024 [facility] Work Phone: Comment on above: Ordered: 06/11/2024 Payers Date Payer Category Payer Private Health Insurance [employer] [id number] 2024 Unknown [id number] 2020 Managed Care HMO (unspecified) [id number] 1991 Unknown [id number] 2.16.840.1.816762.3.579.2. 593 1991 Unknown [id number] 2.16.840.1.917393.3.579.2. 593 1991 Unknown [id number] 2.16.840.1.853835.3.579.2. 593 1991 Unknown [id number] 2.16.840.1.376572.3.579.2. 593 1991 Unknown [id number] 2.16.840.1.768704.3.579.2. 593 1991 Unknown [id number] 2.16.840.1.700817.3.579.2. 593 1991 Unknown [id number] 2.16.840.1.658965.3.579.2. 593 1991 Unknown [id number] 2.16.840.1.121836.3.579.2. 593 1991 Unknown [id number] 2.16.840.1.652526.3.579.2. 593 1991 Unknown [id number] 2.16.840.1.313151.3.579.2. 593 1991 Unknown [id number] 2.16.840.1.016079.3.579.2. 593 1991 Unknown [id number] 2.16.840.1.534489.3.579.2. 593 1991 Unknown [id number] 2.16.840.1.736693.3.579.2. 593 1991 Unknown [id number] 2.16.840.1.308245.3.579.2. 593 1991 Unknown [id number] 2.16.840.1.122128.3.579.2. 593 1991 Unknown [id number] 2.16.840.1.727080.3.579.2. 593 1991 Unknown [id number] 2.16.840.1.248145.3.579.2. 593 1991 Unknown [id number] 2.16.840.1.904378.3.579.2. 593 1991 Unknown [id number] 2.16840.1.659362.3.579.2. 593 1991 Unknown [id number] 2.16.840.1.100494.3.579.2. 593 1991 Unknown [id number] 2.16.840.1.644409.3.579.2. 593 1991 Unknown [id number] 2.16.840.1.473860.3.579.2. 1259 1991 Unknown [id number] 2.16840.1.115314.3.579.2. 1259 1991 Unknown [id number] 2.16.840.1.882604.3.579.2. 1259 1991 Unknown [id number] 2.16.840.1.158367.3.579.2. 1259 1991 Unknown [id number] 2.16.840.1.588916.3.579.2. 1259 1991 Unknown [id number] 2.16.840.1.609491.3.579.2. 1259 1991 Unknown [id number] 2.16.840.1.842601.3.579.2. 1259 1991 Unknown [id number] 2.16.840.1.432185.3.579.2. 1259 1991 Unknown [id number] 2.16.840.1.315602.3.579.2. 1259 1959 Private Health Insurance [id number] Social History Date Type Detail Facility Start: 02-08-2023 Tobacco smoking stat [facility] Never smoked tobacco [facility] Start: [...] Start: 02-06-2023 Sexual orientation Heterosexual (fin ding) [facility] Medical Equipment Procedure Code Equipment Code Equipment Origin al Text Equipment Identifier Dates 1 strip by In Vi tro route Daily Use in the morning prior to breakfast, 1 hour after each meal for a total of 4times daily. [id number] Start: 08-09-2024 End: 09-12-2024 1 each by In Vit ro route Daily Use to check FSBS four times daily [id number] Start: 08-09-2024 End: 09-12-2024 Goals Date Patient [...] 81 mg, Daily Blood Glucose Monitoring Suppl ([employer] Glucometer) w/Device kit 1 kit, Does not [...] nursing note reviewed. Exam conducted with a turning sander tender present. Vitals: Estimated body mass index is [...] Lee Rand DO documented in this encounter [facility] 08-29-2024 History of Presen t illness Narrative [...] 81 mg, Daily Blood Glucose Monitoring Suppl ([employer] Glucometer) w/Device kit 1 kit, Does not [...] Grandfather Bo Albright Cancer Paternal Grandmother December [facility] Arthritis Paternal Grandmother December [facility] Hypertension Paternal Grandmother December [facility] SURGICAL HISTORY Past Surgical History: [...] nursing note reviewed. Exam conducted with a turning sander tender present. Vitals: Estimated body mass index is [...] Lee Rand DO documented in this encounter [facility] 08-09-2024 History of Presen t illness Narrative [...] nursing note reviewed. Exam conducted with a turning sander tender present. Vitals: Estimated body mass index is [...] Lee Rand DO documented in this encounter [facility] 07-12-2024 History of Presen t illness Narrative [...] nursing note reviewed. Exam conducted with a turning sander tender present. Vitals: Estimated body mass index is [...] with patient and she is scheduled with [facility] for confirmation of complete placenta previa. Patient to return to clinic in 4 weeks for routine OB. Documented by Miranda Parsons LPN on behalf of: Lee Rand DO documented in this encounter [facility] 06-11-2024 History of Presen t illness Narrative [...] nursing note reviewed. Exam conducted with a turning sander tender present. Vitals: Estimated body mass index is [...] Lee Rand DO documented in this encounter [facility] 05-08-2024 History of Presen t illness Narrative [...] nursing note reviewed. Exam conducted with a turning sander tender present. Vitals: Estimated body mass index is [...] or undercooked meat, and stay away from [facility]. Patient has been consulted regarding any further do's and don'ts of . Patient voiced understanding and all questions and concerns were answered. Orders Placed This Encounter Procedures POCT urinalysis dipstick manually resulted Follow Up: Patient is to return in 4 weeks for routine OB appointment. Documented by Tere Hu LPN on behalf of: Lee Rand DO documented in this encounter [facility] 04-05-2024 History of Presen t illness Narrative [...] or undercooked meat, and stay away from [facility]. Patient has also been advised to [...] by: Janis Hylton documented in this encounter [facility] 06-04-2022 Note OPERATIVE NOTE OPERATION DATE: 06/04/2022 PROCEDURE: Primary low transverse section. PREOPERATIVE DIAGNOSIS: 1. Intrauterine at 37 5/7 weeks. 2. Breech presentation. POSTOPERATIVE DIAGNOSIS: 1. Intrauterine at 37 5/7 weeks. 2. Breech presentation. 3. 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 SURGEON: Lee Rand CLASSROOM ASSISTANT: SCARLET Albert URINE OUTPUT: Yellow and [...] the Recovery Room in stable condition. [facility] Evaluation note Diagnosis 13 weeks gestation of Second trimester state, incidental documented in this encounter [facility] HealthcareEvaluation note* Diagnosis Second trimester state, incidental 18 weeks gestation of Vaginal discharge Leukorrhea, not specified as infective STD exposure Screening, , for anatomic survey Encounter for anatomic survey documented in this encounter [facility] HealthcareEvaluation note* Diagnosis Missed menses Encounter for supervision of normal first in first trimester , unspecified gestational age care, antepartum documented in this encounter [facility] HealthcareEvaluation note* Diagnosis Second trimester state, incidental with normal glucose tolerance test (GTT) 22 weeks gestation of Diabetes mellitus screening Screening for diabetes mellitus documented in this encounter [facility] HealthcareEvaluation note* Diagnosis Second trimester state, incidental [...] DATE CREATED AUTHOR AUTHOR'S ORGANIZ ATION 09/14/2024 [facility] EPIC Care Teams (unrecognized sec tion and content) Facilities Coordinator Relationship Specialty Start Date End Date Fito Cueto MD [address] [place] [address] PCP - General Family Medicine 02/09/23 Facilities Coordinator Relationship Specialty Start Date End Date Fito Cueto MD [address] [place] [address] PCP - General Family Medicine 02/09/23 Facilities Coordinator Relationship Specialty Start Date End Date Fito Cueto MD [address] [place] [address] PCP - General Family Medicine 02/09/23 Facilities Coordinator Relationship Specialty Start Date End Date Fito Cueto MD [address] [place] [address] PCP - General Family Medicine 02/09/23 Facilities Coordinator Relationship Specialty Start Date End Date Fito Cueto MD [address] [place] [address] PCP - General Family Medicine 02/09/23 Facilities Coordinator Relationship Specialty Start Date End Date Fito Cueto MD [address] [place] [address] PCP - General Family Medicine 02/09/23 Facilities Coordinator Relationship Specialty Start Date End Date Fito Cueto MD [address] [place] [address] PCP - General Family Medicine 02/09/23 Facilities Coordinator Relationship Specialty Start Date End Date Fito Cueto MD [address] [place] [address] PCP - General Family Medicine 02/09/23 Facilities Coordinator Relationship Specialty Start Date End Date Fito Cueto MD [address] [place] [id number] PCP - General Family Medicine 02/09/23 Facilities Coordinator Relationship Specialty Start Date End Date Fito Cueto MD [address] [place] [address] PCP - General Family Medicine 02/09/23 Facilities Coordinator Relationship Specialty Start Date End Date Fito Cueto MD [address] [place] [id number] PCP - General Family Medicine 02/09/23 Facilities Coordinator Relationship Specialty Start Date End Date Fito Cueto MD [address] [place] [id number] PCP - General Family Medicine 02/09/23 Reason [...] BE BASED ON THE PRIMARY CLINICAL RECORDS. [facility]. provides no warranty or guarantee of the accuracy or completeness of information in this document.
--- NOTE | 2024-09-25 18:50 | US_ITS ---
[address] [address] Patient Name: RUBÉN MACDONALD MRN: [facility]:[id number] date: 1990 Sex: F Assigned Patient Location: [facility] Current Patient Location: Accession/Order Number: [id number] Exam Date: 09/25/2024 22:21 Report Date: 09/25/2024 22:23 At the request of: MELINDA FREDERICK DO Procedure: US OB BPP w non-stress Biophysical profile. Reason for exam: Diet-controlled gestational diabetes. COMPARISON: BPP 09/18/2024 Technique: Transabdominal imaging of the gravid uterus was obtained. FINDINGS: Coal Weigher reports the BPP is 8 out of 8. JAS is normal at 12.8 cm. heart rate 127 bpm. US/US OB BPP w non-stress IMPRESSION: BPP 8 out of 8. Impression dictated by: Pete Engle Jr., D.O.09/25/2024 10:23 PM Dictation Location: [employer] Electronically authenticated by: [id number] Date: 09/25/2024 22:23
[2024-09-25 19:29] VITALS: BP 110/67; PULSE 94
== END 2024-09-25 20:05 | disposition home or self-care (01) ==
LOC: US 00:49 → FBC 18:47
PROVIDERS: Visit Provider Obstetrics & Gynecology
DX: O24.419 Gestational diabetes mellitus in pregnancy, unspecified control (principal); Z3A.33 33 weeks gestation of pregnancy
CPT/HCPCS: 59025; 76818

== ENCOUNTER 2024-09-27 01:56 | Outpatient (OUT) | payer OTHER, SELFPAY ==
--- OUTSIDE RECORDS SUMMARY | 2024-09-27 02:00 | XMS_ITS | CCD ---
Author Organization [facility] Care Team Providers Care Applications Processor Name Role Phone KEYONA, DR LAWRENCE Admitting Unavailable KEYONA, DR LAWRENCE Attending Unavailable GIOVANA, DR AVI Velarde Primary Care Unavail able WEST, DR RIGO Medina Consulting Unavailable KEYONA, DR LAWRENCE Consulting Unavailable KYEONA, DR [...] DR AVI Velarde Primary Care Unavail able KEOYNA, DR LAWRENCE Admitting Unavailable KEYONA, DR LAWRENCE [...] Admitting Unavailable KEYONA, DR LAWRENCE Attending Unavailable IGOVANA, DR AVI Velarde Primary Care Unavail able [...] Attending Unavailable TELLY, DR PENNINGTON Consulting Unavailable BROOKLYN, DR RIGO Med[employer] Unavailable KEYONA, DR LAWRENCE Consulting Unavailable Bandar Cueto MDishna Primary Care Provider [phone] KEYONA, LEE Attending Unavailable KEYONA, LEE Attending Unavailable KEYONA, LEE Attending Unavailable KEYONA, LEE Attending Unavailable KEYONA, LEE Attending Unavailable KEYONA, LEE Attending Unavailable KEYONA, LEE Attending Unavailable KEYONA, LEE Attending Unavailable Allergies Allergy Classification Reported Allergen(s) Allergy Type Date of Onset Reaction(s) Facility (2 sources) Acetaminophen / HYDROcodone Drug Allergy [facility] Repository Medications Current Medications Medication Drug Class(es) Dates Sig (Normalized) Sig (Original) aspirin 81 mg delayed release oral tablet (11 sources) Platelet Aggregation Inhibitor, Nonsteroidal Anti-inflammatory Drug take 1 tablet by mouth once daily aspirin 81 MG EC tablet Take 81 mg by mouth Daily Active Blood Glucose Monitoring Suppl (D-Care Glucometer) w/Device kit (14 sources) Start: 08-09-2024 End: 08-09-2025 Blood Glucose [...] Active isopropyl alcohol 0.7 ml/ml medicated pad (14 sources) Start: 08-09-2024 Alcohol Swabs (Alcohol Prep [...] [31 weeks gestation of ] 09-12-2024 Episodic Residual codes; unclassified (2 sources) Gestation period, 33 weeks; Translations: [33 weeks gestation of ] 09-26-2024 Episodic Unclassified (1 source) CONTACT W/AND (SUSP) [...] Range Facility Urinalysis macro (dipstick) panel (U)on 09-26-2024 Bilirubin, UA Negative Negative - 4(70) +++ mg/dL [facility] Blood, UA Positive Negative - 50 Yang/mcL [facility] Comment on above: Trace - Intact Clarity, UA Clear [facility] Color, UA Yellow [facility] Glucose, UA Negative Negative - 1999(110) ++++ mg/dL [facility] Interpretation and review of laboratory results Abnormal [facility] Ketones, UA Negative Negative - 160(16) ++++ mg/dL [facility] Leukocytes, UA Trace Negative - 500+++ Derik/mcL [facility] Nitrite, UA Negative Negative - Positive [facility] pH, UA 6.5 5 - 9 [facility] Protein, UA Negative Negative - 1999(20) ++++ mg/dL [facility] Spec Grav, UA 1.015 1 - 1.03 [facility] Urobilinogen, UA 0.2 0.2 - 12 mg/dL [facility] US OB BPP W NON-STRESS on 09-25-2024 [place] [address] Ultrasound Report Signed Patient: ANNA LAW MR#: [id number] : 1990 Acct:[id number] Age/Sex: 34 / F ADM Date: 09/25/24 Loc: US Attending Dr: Lee Rand D.O. Ordering Physician: Lee Rand D.O. Date of Service: 09/25/24 Procedure(s): US OB BPP w non-stress Accession Number(s): [id number] cc: Lee Rand D.O.; Physician,Non-Staff [facility] The [place] [address] Patient Name: ANNA LAW MRN: [id number] date: 1990 Sex: F Assigned Patient Location: [facility] Current Patient Location: Accession/Order Number: [id number] Exam Date: 09/25/2024 22:21 Report Date: 09/25/2024 22:23 At the request of: LEE RAND DO Procedure: US OB BPP w non-stress Biophysical profile. Reason for exam: Diet-controlled gestational diabetes. COMPARISON: BPP 09/18/2024 Technique: Transabdominal imaging of the gravid uterus was obtained. FINDINGS: Steam Tank Operator reports the BPP is 8 out of 8. JAS is normal at 12.8 cm. heart rate 127 bpm. US/US OB BPP w non-stress IMPRESSION: BPP 8 out of 8. Impression dictated by: Pete Engle Jr., D.O.09/25/2024 10:23 PM Dictation Location: [place] [address] Electronically authenticated by: [id number] Y Date: 09/25/2024 22:23 Dictated By: Pete Engle M.D. Signed By: 09/25/242224 DD/ 22 TD/TT: President Trust Company: [facility] Radiology, Radiologist, - 09/25/2024 The [place] [id number] Ultrasound Report Signed Patient: ANNA LAW MR#: [id number] : 1990 Acct:[id number] Age/Sex: 34 / F ADM Date: 09/25/24 Loc: US Attending Dr: Lee Rand D.O. Ordering Physician: Lee Rand D.O. Date of Service: 09/25/24 Procedure(s): US OB BPP w non-stress Accession Number(s): [id number] cc: Lee Rand D.O.; Physician,Non-Staff [place] The [address] [address] Patient Name: ANNA LAW MRN: [facility]:[id number] date: 1990 Sex: F Assigned Patient Location: [facility] Current Patient Location: Accession/Order Number: [id number] Exam Date: 09/25/2024 22:21 Report Date: 09/25/2024 22:23 At the request of: LEE RAND DO Procedure: US OB BPP w non-stress Biophysical profile. Reason for exam: Diet-controlled gestational diabetes. COMPARISON: BPP 09/18/2024 Technique: Transabdominal imaging of the gravid uterus was obtained. FINDINGS: Steam Tank Operator reports the BPP is 8 out of 8. JAS is normal at 12.8 cm. heart rate 127 bpm. US/US OB BPP w non-stress IMPRESSION: BPP 8 out of 8. Impression dictated by: Pete Engle Jr., D.O.09/25/2024 10:23 PM Dictation Location: [place] [address] Electronically authenticated by: [id number] Y Date: 09/25/2024 22:23 Dictated By: Pete Engle M.D. Signed By: 09/25/242224 DD/ 22 TD/TT: President Trust Company: [facility] Radiology Study observation (narrative) [facility] US OB BPP W NON-STRESS Ordered By: Radiologist Radiology on 09-25-2024 [facility] Work Phone: US OB BPP W NON-STRESS on 09-18-2024 [place] [address] Ultrasound Report Signed Patient: ANNA LAW MR#: [id number] : 1990 Acct:[id number] Age/Sex: 34 / F ADM Date: 09/18/24 Loc: US Attending Dr: Lee Rand D.O. Ordering Physician: Lee Rand D.O. Date of Service: 09/18/24 Procedure(s): US OB BPP w non-stress Accession Number(s): [id number] cc: Lee Rand D.O.; Physician,Non-Staff M.DDen [place] [id number] Patient Name: ANNA LAW MRN: [id number] date: 1990 Sex: F Assigned Patient Location: US Current Patient Location: Accession/Order Number: [id number] Exam Date: 09/18/2024 22:52 Report Date: 09/18/2024 22:56 At the request of: LEE RAND DO Procedure: US OB BPP w non-stress Biophysical profile. Reason for exam: Diet-controlled gestational diabetes. COMPARISON: BPP 09/12/2024. Technique: Transabdominal imaging of the gravid uterus was obtained. FINDINGS: Steam Tank Operator reports the BPP is 8 out of 8. JAS is normal at 14.3 cm. heart rate 135 bpm. US/US OB BPP w non-stress IMPRESSION: BPP 8 out of 8. Impression dictated by: Herbert Mueller Jr.ODen09/18/2024 10:56 PM Dictation Location: [facility] Electronically authenticated by: [id number] Y Date: 09/18/2024 22:56 Dictated By: Pete Engle M.D. Signed By: 09/18/242257 DD/ 55 TD/TT: President Trust Company: [facility] Radiology, Radiologist, - 09/18/2024 [place] [address] Ultrasound Report Signed Patient: ANNA LAW MR#: [id number] : 1990 Acct:[id number] Age/Sex: 34 / F ADM Date: 09/18/24 Loc: US Attending Dr: Lee Rand D.O. Ordering Physician: Lee Rand D.O. Date of Service: 09/18/24 Procedure(s): US OB BPP w non-stress Accession Number(s): [id number] cc: Lee Rand D.O.; Physician,Non-Staff [facility] The [place] [id number] Patient Name: ANNA LAW MRN: [facility]:[id number] date: 1990 Sex: F Assigned Patient Location: US Current Patient Location: Accession/Order Number: [id number] Exam Date: 09/18/2024 22:52 Report Date: 09/18/2024 22:56 At the request of: LEE RAND DO Procedure: US OB BPP w non-stress Biophysical profile. Reason for exam: Diet-controlled gestational diabetes. COMPARISON: BPP 09/12/2024. Technique: Transabdominal imaging of the gravid uterus was obtained. FINDINGS: Steam Tank Operator reports the BPP is 8 out of 8. JAS is normal at 14.3 cm. heart rate 135 bpm. US/US OB BPP w non-stress IMPRESSION: BPP 8 out of 8. Impression dictated by: Pete Engle Jr., D.O.09/18/2024 10:56 PM Dictation Location: [place] [address] Electronically authenticated by: [id number] Y Date: 09/18/2024 22:56 Dictated By: Pete Engle M.D. Signed By: 09/18/242257 DD/ 55 TD/TT: President Trust Company: [facility] Radiology Study observation (narrative) [facility] US OB BPP W NON-STRESS Ordered By: Radiologist Radiology on 09-18-2024 [facility] Work Phone: US OB BPP W NON-STRESS on 09-12-2024 [place] [address] Ultrasound Report Signed Patient: ANNA LAW MR#: [id number] : 1990 Acct:[id number] Age/Sex: 34 / F ADM Date: 09/11/24 Loc: US Attending Dr: Lee Rand D.O. Ordering Physician: Lee Rand D.O. Date of Service: 09/11/24 Procedure(s): US OB BPP w non-stress Accession Number(s): [id number] cc: Lee Rand D.O.; Physician,Non-Staff [place] [address] Patient Name: ANNA LAW MRN: [facility]:[id number] date: 1990 Sex: F Assigned Patient Location: [facility] Current Patient Location: Accession/Order Number: [id number] Exam Date: 09/12/2024 09:01 Report Date: 09/12/2024 [...] 31 weeks 3 days. The heart rate [id number] beats per minute. FINDINGS: TONE: 1 or [...] amniotic fluid greater than 2 cm [Y] 2/ JAS: 16.9cm. This is in normal range. Total score: 03/01 US/US OB BPP w non-stress IMPRESSION: NORMAL BIOPHYSICAL PROFILE. Impression dictated by: Tere Munoz M.D.09/12/2024 9:04 AM Dictation Location: [place] [address] Electronically authenticated by: [id number] Y Date: 09/12/2024 09:04 Dictated By: Tere Munoz M.D. Signed By: 09/12/24905 DD/ 3 TD/TT: President Trust Company: [facility] Radiology, Radiologist, MD - 09/12/2024 [place] [address] Ultrasound Report Signed Patient: ANNA LAW MR#: [id number] : 1990 Acct:[id number] Age/Sex: 34 / F ADM Date: 09/11/24 Loc: US Attending Dr: Lee Rand D.O. Ordering Physician: Lee Rand D.O. Date of Service: 09/11/24 Procedure(s): US OB BPP w non-stress Accession Number(s): [id number] cc: Lee Rand D.O.; Physician,Non-Staff [facility] The [place] [id number] Patient Name: ANNA LAW MRN: [facility]:[id number] date: 1990 Sex: F Assigned Patient Location: [facility] Current Patient Location: Accession/Order Number: [id number] Exam Date: 09/12/2024 09:01 Report Date: 09/12/2024 [...] 31 weeks 3 days. The heart rate [id number] beats per minute. FINDINGS: TONE: 1 or [...] This is in normal range. Total score: 03/01 US/US OB BPP w non-stress IMPRESSION: NORMAL BIOPHYSICAL PROFILE. Impression dictated by: Tere Munoz M.D.09/12/2024 9:04 AM Dictation Location: [place] [address] Electronically authenticated by: [id number] Y Date: 09/12/2024 09:04 Dictated By: Tere Munoz M.D. Signed By: 09/12/24905 DD/ 3 TD/TT: President Trust Company: [facility] Radiology Study observation (narrative) [facility] US OB BPP W NON-STRESS Ordered By: Radiologist Radiology on 09-12-2024 [facility] Work Phone: Urinalysis macro (dipstick) panel (U)on 09-12-2024 Bilirubin, UA Negative Negative - 4(70) +++ mg/dL [facility] Blood, UA Negative Negative - 50 Yang/mcL [facility] Clarity, UA Clear [facility] Color, UA Yellow [facility] Glucose, UA Negative Negative - 2000(110) ++++ mg/dL [facility] Interpretation and review of laboratory results Abnormal [facility] Ketones, UA Positive Negative - 160(16) ++++ mg/dL [facility] Comment on above: trace Leukocytes, UA Negative Negative - 500+++ Derik/mcL [facility] Nitrite, UA Negative Negative - Positive [facility] pH, UA 7 5 - 9 [facility] Protein, UA Trace Negative - 2000(20) ++++ mg/dL [facility] Spec Grav, UA 1.02 1 - 1.03 [facility] Urobilinogen, UA 0.2 0.2 - 12 mg/dL [facility] US OB BPP W NON-STRESS on 09-05-2024 [place] [address] Ultrasound Report Signed Patient: ANNA LAW MR#: [id number] : 1990 Acct:[id number] Age/Sex: 34 / F ADM Date: 09/04/24 Loc: US Attending Dr: Lee Rand D.O. Ordering Physician: Lee Rand D.O. Date of Service: 09/04/24 Procedure(s): US OB BPP w non-stress Accession Number(s): [id number] cc: Lee Rand D.O.; Physician,Non-Staff [place] [address] Patient Name: ANNA LAW MRN: [facility]:[id number] date: 1990 Sex: F Assigned Patient Location: [facility] Current Patient Location: Accession/Order Number: [id number] Exam Date: 09/04/2024 18:52 Report Date: 09/05/2024 [...] Dictated By: Tiff Baumann M.D. Signed By: 09/05/24554 DD/ 0553 TD/TT: President Trust Company: [facility] Radiology, Radiologist, - 09/05/2024 [place] [address] Ultrasound Report Signed Patient: ANNA LAW MR#: [id number] : 1990 Acct:[id number] Age/Sex: 34 / F ADM Date: 09/04/24 Loc: US Attending Dr: Lee Rand D.O. Ordering Physician: Lee Rand D.O. Date of Service: 09/04/24 Procedure(s): US OB BPP w non-stress Accession Number(s): [id number] cc: Lee Rand D.O.; Physician,Non-Staff [facility] The [place] [phone] Patient Name: ANNA LAW MRN: [facility]:[id number] date: 1990 Sex: F Assigned Patient Location: [facility] Current Patient Location: Accession/Order Number: [id number] Exam Date: 09/04/2024 18:52 Report Date: 09/05/2024 [...] M.D. Signed By: 09/05/2455 DD/ 2 TD/TT: President Trust Company: [facility] Radiology Study observation (narrative) [facility] US OB BPP W NON-STRESS Ordered By: Radiologist Radiology on 09-05-2024 [facility] Work Phone: Urinalysis macro (dipstick) panel (U)on 08-29-2024 Bilirubin, UA Negative Negative - 4(70) +++ mg/dL [facility] Blood, UA Positive Negative - 50 Yang/mcL [facility] Comment on above: trace-intact Clarity, UA Clear [facility] Color, UA Yellow [facility] Glucose, UA Negative Negative - 1999(110) ++++ mg/dL [facility] Interpretation and review of laboratory results Abnormal [facility] Ketones, UA Positive Negative - 160(16) ++++ mg/dL [facility] Comment on above: 40 Leukocytes, UA Trace Negative - 500+++ Derik/mcL [facility] Nitrite, UA Negative Negative - Positive [facility] pH, UA 5.5 5 - 9 [facility] Protein, UA Trace Negative - 1999(20) ++++ mg/dL [facility] Spec Grav, UA 1.025 1 - 1.03 [facility] Urobilinogen, UA 1.0 0.2 - 12 mg/dL [facility] GLUCOSE TOLERANCE 3 HOURon 0 07-28-2024 GLUCOSE TOLERANCE 3 HOUR High mg/dL [facility] Comment on above: GLU FAST 87 (<95) Co l: 07/28/24 0638 GLU 1HR 199H (<180) Col: 07/28/24 0739 GLU 2HR 173H (<155) Col: 07/28/24 0839 GLU 3HR 94 (<140) Col: 07/28/24 0939 Interpretation and review of laboratory results Abnormal [facility] 1 HOURon 07-21-2024 Glucose [Mass/Vol] 154 mg/dL High NINF - 13 0 mg/dL [facility] Interpretation and review of laboratory results Abnormal [facility] Urinalysis macro (dipstick) panel (U)on 07-12-2024 Bilirubin, UA Negative Negative - 4(70) +++ mg/dL [facility] Blood, UA Negative Negative - 50 Yang/mcL [facility] Clarity, UA Clear [facility] Color, UA Yellow [facility] Glucose, UA Negative Negative - 1999(110) ++++ mg/dL [facility] Interpretation and review of laboratory results Normal [facility] Ketones, UA Negative Negative - 160(16) ++++ mg/dL [facility] Leukocytes, UA Negative Negative - 500+++ Derik/mcL [facility] Nitrite, UA Negative Negative - Positive [facility] pH, UA 7 5 - 9 [facility] Protein, UA Negative Negative - 2000(20) ++++ mg/dL [facility] Spec Grav, UA 1.02 1 - 1.03 [facility] Urobilinogen, UA 1.0 0.2 - 12 mg/dL [facility] AFP, SERUM, OPEN SPINA BIFID Aon 07-04-2024 AFP MOM 1.60 . [facility] AFP VALUE 91.9 ng/mL . [facility] COMMENT: Comment . [facility] Comment on above: Sonia Sullivan , Ph.D., [facility] Director References: Available Upon Request. Multiples Of Median Cutoffs For AFP Elevations Bhandari 2.5 Black 2.8 IDD 2.0 Twins 4.5 Abbreviation Definitions IDD - Insulin Dep Diabetes OSBR - Open Spina Bifida Risk For further inquiries contact [facility] at [phone]. This test was developed and its performance characteristics determined by [employer]. It has not been cleared or approved by the Food and Drug Administration. Performed at: [facility] [address] [place], [place] [id number] Slag Mixer: Francis Boyd [facility], Phone: [phone] GEST. AGE ON COLLECTION DATE 21.0 . weeks [facility] GESTAT. AGE BASED ON LMP . [facility] Comment on above: Recalculations are n ot recommended when gestational dating by LMP and ultrasound are within 10 days. INSULIN DEP DIABETES No . [facility] INTERPRETATION Comment . [facility] Comment on above: Interpretation: Scre en Negative [...] Customer Services to discuss available options. The [employer] recommends amniocentesis be offered to women age 35 and older. [age] [facility] MULTIPLE GESTATION No . [facility] OSBR RISK 1 IN 2099 . [facility] RACE . [facility] RESULTS Report . [facility] TEST RESULTS: Negative . [facility] WEIGHT 177 . lbs [facility] N LMP [id number] 2 18 N 1 Y 177 N N N White/ [facility] RECURRENT VAGINITIS (HTRX)on 06-13-2024 ATOPOBIUM VAGINAE 30.301 Abnormal [facility] ATOPOBIUM VAGINAE Detected Abnormal [facility] BVAB 2,3 (BACTERIAL VAGINOSIS ASSOCIATED BACTERIA 2, 3); MOBILUNCUS SPP 0 [facility] BVAB 2,3 (BACTERIAL VAGINOSIS ASSOCIATED BACTERIA 2, 3); MOBILUNCUS SPP Not detected [facility] KAITLYNN ALBICANS, PARAPSILOSIS, TROPICALIS 0 [facility] KAITLYNN ALBICANS, PARAPSILOSIS, TROPICALIS Not detected [facility] KAITLYNN GLABRATA 0 [facility] KAITLYNN GLABRATA Not detected [facility] KAITLYNN KRUSEI 0 [facility] KAITLYNN KRUSEI Not detected [facility] CHLAMYDIA TRACHOMATIS 0 [facility] CHLAMYDIA TRACHOMATIS Not detected [facility] GARDNERELLA VAGINALIS 21.1 Abnormal [facility] GARDNERELLA VAGINALIS Detected Abnormal [facility] Interpretation and review of laboratory results Abnormal [facility] MEGASPHAERA (TYPES 1, 2) 0 [facility] MEGASPHAERA (TYPES 1, 2) Not detected [facility] MYCOPLASMA GENITALIUM 0 [facility] MYCOPLASMA GENITALIUM Not detected [facility] NEISSERIA GONORRHOEAE 0 [facility] NEISSERIA GONORRHOEAE Not detected [facility] TRICHOMONAS VAGINALIS 0 [facility] TRICHOMONAS VAGINALIS Not detected [facility] Urinalysis macro (dipstick) panel (U)on 06-11-2024 Bilirubin, UA Negative Negative - 4(70) +++ mg/dL [facility] Blood, UA Negative Negative - 50 Yang/mcL [facility] Clarity, UA Clear [facility] Color, UA Yellow [facility] Glucose, UA Negative Negative - 2000(110) ++++ mg/dL [facility] Interpretation and review of laboratory results Normal [facility] Ketones, UA Negative Negative - 160(16) ++++ mg/dL [facility] Leukocytes, UA Negative Negative - 500+++ Derik/mcL [facility] Nitrite, UA Negative Negative - Positive [facility] pH, UA 5.5 5 - 9 [facility] Protein, UA Negative Negative - 1999(20) ++++ mg/dL [facility] Spec Grav, UA 1.02 1 - 1.03 [facility] Urobilinogen, UA 1.0 0.2 - 12 mg/dL [facility] Urinalysis macro (dipstick) panel (U)on 05-08-2024 Bilirubin, UA Negative Negative - 4(70) +++ mg/dL [facility] Blood, UA Positive Negative - 50 Yang/mcL [facility] Comment on above: trace-intact Clarity, UA Clear [facility] Color, UA Yellow [facility] Glucose, UA Negative Negative - 1999(110) ++++ mg/dL [facility] Interpretation and review of laboratory results Abnormal [facility] Ketones, UA Negative Negative - 160(16) ++++ mg/dL [facility] Leukocytes, UA Negative Negative - 500+++ Derik/mcL [facility] Nitrite, UA Negative Negative - Positive [facility] pH, UA 6 5 - 9 [facility] Protein, UA Negative Negative - 1999(20) ++++ mg/dL [facility] Spec Grav, UA 1.025 1 - 1.03 [facility] Urobilinogen, UA 0.2 0.2 - 12 mg/dL [facility] ALL CBC WITH AUTO DIFFon BASOPHILS ABSOLUTE AUTO 0.0 [facility] Basophils/100 WBC (Bld) 0.4 % 0.2 - 2.0 % [facility] Eosinophils/100 WBC (Bld) 0.9 % 0.9 - 7.0 % [facility] Erythrocyte distribution width (RBC) [Ratio] 11.9 % 11.0 - 15.0 % [facility] Hematocrit (Bld) [Volume fraction] 37.1 % 36.0 - 48.0 % [facility] Hemoglobin (Bld) [Mass/Vol] 12.6 g/dL 12.0 - 16.0 g/dL [facility] IMMATURE GRANULOCYTES ABS AUTO 0.03 [facility] Immature granulocytes/100 WBC (Bld) 0.4 % 0.0 - 0.5 % [facility] Interpretation and review of laboratory results Abnormal [facility] LYMPHOCYTES ABSOLUTE AUTO 1.7 [facility] Lymphocytes/100 WBC (Bld) 21.2 % 20.5 - 60.0 % [facility] MCH (RBC) [Entitic mass] 31.7 pg 26.7 - 34.0 pg [facility] MCHC (RBC) [Mass/Vol] 34.0 g/dL 29.9 - 35.2 g/dL [facility] MCV (RBC) [Entitic vol] 93.5 fL 81.0 - 99.0 fL [facility] MONOCYTES ABSOLUTE AUTO 0.6 [facility] Monocytes/100 WBC (Bld) 6.8 % 1.7 - 12.0 % [facility] NEUTROPHILS ABSOLUTE AUTO 5.7 [facility] Neutrophils/100 WBC (Bld) 70.3 % 43.0 - 75.0 % [facility] Platelet mean volume (Bld) [Entitic vol] 9.8 fL 9.5 - 13.5 fL [facility] TBH EO # 0.1 [facility] TB PLT [address] [facility] RBC 3.97 Low [facility] WBC 8.1 [facility] HCG ( test) Ql (U)o n 04-05-2024 Interpretation and review of laboratory results Abnormal [facility] Preg Test, Ur Positive [facility] Urinalysis macro (dipstick) panel (U)on 04-05-2024 Bilirubin, UA Negative Negative - 4(70) +++ mg/dL [facility] Blood, UA Positive Negative - 50 Yang/mcL [facility] Comment on above: trace intact Clarity, UA Clear [facility] Color, UA Yellow [facility] Glucose, UA Negative Negative - 1999(110) ++++ mg/dL [facility] Interpretation and review of laboratory results Abnormal [facility] Ketones, UA Negative Negative - 160(16) ++++ mg/dL [facility] Leukocytes, UA Trace Negative - 500+++ Derik/mcL [facility] Nitrite, UA Negative Negative - Positive [facility] pH, UA 6.5 5 - 9 [facility] Protein, UA Negative Negative - 1999(20) ++++ mg/dL [facility] Spec Grav, UA 1.015 1 - 1.03 [facility] Urobilinogen, UA 0.2 0.2 - 12 mg/dL [facility] CBC AUTO DIFFon 06-05-2022 BASO # 0.0 103/ul Normal 0.0-0.1 [facility] Comment on above: Performed By: #### C BC #### [facility] [address] [place] [address] Dr. Sandi Michelle Basophils/100 WBC (Bld) 0.2 % Normal 0.2-2.0 [facility] Comment on above: Performed By: #### C BC #### [facility] [address] [place] [address] Dr. Sandi Michelle EO # 0.0 103/ul Normal 0.0-0.7 [facility] Comment on above: Performed By: #### C BC #### [facility] [address] [place] [address] Dr. Sandi Michelle Eosinophils/100 WBC (Bld) 0.2 % Critically low 0.9-7.0 [facility] Comment on above: Performed By: #### C BC #### [facility] [address] [place] [address] Dr. Sandi Michelle Erythrocyte distribution width (RBC) [Ratio] 14.3 % Normal 11.0-15.0 [facility] Comment on above: Performed By: #### C BC #### [facility] [address] [place] [address] Dr. Sandi Michelle Hematocrit (Bld) [Volume fraction] 27.3 % Critically low 36.0-48.0 [facility] Comment on above: Performed By: #### C BC #### [facility] [address] [place] [address] Dr. Sandi Michelle Hemoglobin (Bld) [Mass/Vol] 9.3 g/dL Critically low 12.0-16.0 [facility] Comment on above: Result Comment: DELI VERY Performed By: #### C BC #### [facility] [address] [place] [address] Dr. Sandi Michelle IG # 0.14 10e3/ul Critically high 0.00-0.03 [facility] Comment on above: Performed By: #### C BC #### [facility] [address] [place] [address] Dr. Sandi Michelle IG % 1.1 % Critically high 0.0-0.5 [facility] Comment on above: Performed By: #### C BC #### [facility] [address] [place] [address] Dr. Sandi Michelle LYMPH # 1.6 103/ul Normal 1.2-3.8 [facility] Comment on above: Performed By: #### C BC #### [facility] [address] [place] [address] Dr. Sandi Michelle Lymphocytes/100 WBC (Bld) 12.1 % Critically low 20.5-60.0 [facility] Comment on above: Performed By: #### C BC #### [facility] [address] [place] [address] Dr. Sandi Michelle MANUAL DIFF REQ NO Normal [facility] Comment on above: Performed By: #### C BC #### [facility] [address] [place] [address] Dr. Sandi Michelle MCH (RBC) [Entitic mass] 31.8 pg Normal 26.7-34.0 [facility] Comment on above: Performed By: #### C BC #### [facility] [address] [place] [address] Dr. Sandi Michelle MCHC (RBC) [Mass/Vol] 34.1 g/dL Normal 29.9-35.2 [facility] Comment on above: Performed By: #### C BC #### [facility] [address] [place] [address] Dr. Sandi Michelle MCV (RBC) [Entitic vol] 93.5 fL Normal 81.0-99.0 [facility] Comment on above: Performed By: #### C BC #### [facility] [address] [place] [address] Dr. Sandi Michelle MONO # 0.9 103/ul Critically high 0.3-0.8 [facility] Comment on above: Performed By: #### C BC #### [facility] [address] [place] [address] Dr. Sandi Michelle Monocytes/100 WBC (Bld) 6.8 % Normal 1.7-12.0 [facility] Comment on above: Performed By: #### C BC #### [facility] [address] [place] [address] Dr. Sandi Michelle NEUT # 10.3 103/ul Critically high 1.4-6.5 [facility] Comment on above: Performed By: #### C BC #### [facility] [address] [place] [address] Dr. Sandi Michelle Neutrophils/100 WBC (Bld) 79.6 % Critically high 43.0-75.0 [facility] Comment on above: Performed By: #### C BC #### [facility] [address] [place] [address] Dr. Sandi Michelle Platelet mean volume (Bld) [Entitic vol] 9.8 fL Normal 9.5-13.5 [facility] Comment on above: Performed By: #### C BC #### [facility] [address] [place] [address] Dr. Sandi Michelle PLT 138 103/ul Critically low 150-450 [facility] Comment on above: Performed By: #### C BC #### [facility] [address] [place] [address] Dr. Sandi Michelle RBC 2.92 106/ul Critically low 4.20-5.40 [facility] Comment on above: Performed By: #### C BC #### [facility] [address] [place] [address] Dr. Sandi Michelle WBC 12.9 103/ul Critically high 4.0-11.0 [facility] Comment on above: Performed By: #### C BC #### [facility] [address] [place] [address] Dr. Sandi Michelle CBC AUTO DIFFon 06-04-2022 BASO # 0.0 103/ul Normal 0.0-0.1 [facility] Comment on above: Performed By: #### C BC #### [facility] [address] [place] [address] Dr. Sandi Michelle Basophils/100 WBC (Bld) 0.3 % Normal 0.2-2.0 [facility] Comment on above: Performed By: #### C BC #### [facility] [address] [place] [address] Dr. Sandi Michelle EO # 0.0 103/ul Normal 0.0-0.7 [facility] Comment on above: Performed By: #### C BC #### [facility] [address] [place] [address] Dr. Sandi Michelle Eosinophils/100 WBC (Bld) 0.1 % Critically low 0.9-7.0 [facility] Comment on above: Performed By: #### C BC #### [facility] [address] [place] [address] Dr. Sandi Michelle Erythrocyte distribution width (RBC) [Ratio] 14.4 % Normal 11.0-15.0 [facility] Comment on above: Performed By: #### C BC #### [facility] [address] [place] [address] Dr. Sandi Michelle Hematocrit (Bld) [Volume fraction] 37.2 % Normal 36.0-48.0 [facility] Comment on above: Performed By: #### C BC #### [facility] [address] [place] [address] Dr. Sandi Michelle Hemoglobin (Bld) [Mass/Vol] 12.9 g/dL Normal 12.0-16.0 [facility] Comment on above: Performed By: #### C BC #### [facility] [address] [place] [address] Dr. Sandi Michelle IG # 0.23 10e3/ul Critically high 0.00-0.03 [facility] Comment on above: Performed By: #### C BC #### [facility] [address] [place] [address] Dr. Sandi Michelle IG % 1.6 % Critically high 0.0-0.5 [facility] Comment on above: Performed By: #### C BC #### [facility] [address] [place] [address] Dr. Sandi Michelle LYMPH # 2.3 103/ul Normal 1.2-3.8 [facility] Comment on above: Performed By: #### C BC #### [facility] [address] [place] [address] Dr. Sandi Michelle Lymphocytes/100 WBC (Bld) 16.0 % Critically low 20.5-60.0 [facility] Comment on above: Performed By: #### C BC #### [facility] [address] [place] [address] Dr. Sandi Michelle MANUAL DIFF REQ NO Normal [facility] Comment on above: Performed By: #### C BC #### [facility] [address] [place] [address] Dr. Sandi Michelle MCH (RBC) [Entitic mass] 32.3 pg Normal 26.7-34.0 [facility] Comment on above: Performed By: #### C BC #### [facility] [address] [place] [address] Dr. Sandi Michelle MCHC (RBC) [Mass/Vol] 34.7 g/dL Normal 29.9-35.2 [facility] Comment on above: Performed By: #### C BC #### [facility] [address] [place] [address] Dr. Sandi Michelle MCV (RBC) [Entitic vol] 93.0 fL Normal 81.0-99.0 [facility] Comment on above: Performed By: #### C BC #### [facility] [address] [place] [address] Dr. Sandi Michelle MONO # 0.8 103/ul Normal 0.3-0.8 [facility] Comment on above: Performed By: #### C BC #### [facility] [address] [place] [address] Dr. Sandi Michelle Monocytes/100 WBC (Bld) 5.8 % Normal 1.7-12.0 [facility] Comment on above: Performed By: #### C BC #### [facility] [address] [place] [address] Dr. Sandi Michelle NEUT # 10.7 103/ul Critically high 1.4-6.5 [facility] Comment on above: Performed By: #### C BC #### [facility] [address] [address] [address] Sandi Michelle Neutrophils/100 WBC (Bld) 76.2 % Critically high 43.0-75.0 [facility] Comment on above: Performed By: #### C BC #### [facility] [address] [address] [address] Sandi Michelle Platelet mean volume (Bld) [Entitic vol] 10.9 fL Normal 9.5-13.5 [facility] Comment on above: Performed By: #### C BC #### [facility] [address] [address] [address] Sandi Michelle PLT 194 103/ul Normal 150-450 [facility] Comment on above: Performed By: #### C BC #### [facility] [address] [address] [address] Sandi Michelle RBC 4.00 106/ul Critically low 4.20-5.40 [facility] Comment on above: Performed By: #### C BC #### [facility] [address] [address] [address] Sandi Michelle WBC 14.0 103/ul Critically high 4.0-11.0 [facility] Comment on above: Performed By: #### C BC #### [facility] [address] [address] [address] Sandi Michelle Covid-19 PCR ([facility])on 05-25 SARS-CoV-2 (COVID-19) RNA ALETHEA+probe Ql (Unsp spec) Not detected Normal NOT DETECTED [facility] Comment on above: Result Comment: When [...] for this test is supported by the Biology Manager of Health and Human Service's declaration [...] be used). Performed By: #### C VDTBH ####[facility] [address] [place], [place] [address]Dr. Sandi Michelle DRUG SCREEN RAPID (URINE)on 06-04-2022 AMP Negative Normal NEGATIVE [facility] Comment on above: Performed By: #### D RUGRPD ####[facility] [address] [place], [place] [address]Dr. Sandi Michelle BAR Negative Normal NEGATIVE [facility] Comment on above: Performed By: #### D RUGRPD ####[facility] [address] [place], [place] [address]Dr. Sandi Michelle BUP Negative Normal NEGATIVE [facility] Comment on above: Performed By: #### D RUGRPD ####[facility] [address] [place], [place] [address]Dr. Sandi Michelle BZO Negative Normal NEGATIVE [facility] Comment on above: Performed By: #### D RUGRPD ####[facility] [address] [place], [place] [address]Dr. Sandi Michelle NINO Negative Normal NEGATIVE [facility] Comment on above: Performed By: #### D RUGRPD ####[facility] [address] [place], [place] [address]Dr. Sandi Michelle CUT-OFFS SEE BELOW Normal [facility] Comment on above: Result Comment: AMP (Amphetamine): 500ng/mL, BAR (Barbituates): 200 ng/mL, BZO (Benzodiazepines): 150 ng/mL, BUP (Buprenorphine): 10 ng/mL, NINO (Cocaine): 150 ng/mL, mAMP (Methamphetamine): 500 ng/mL, MTD (Methadone): 200 ng/mL, OPI (Opiates): 100 ng/mL, OXY (Oxycodone): 100 ng/mL, PCP (Phencyclidine): 25 ng/mL, PPX (Propoxyphene): 300 ng/mL, THC (Cannabinoids): 50 ng/mL, TCA (Trycyclic Antidepressants): 300 ng/mL Performed By: #### D RUGRPD ####[facility] [address] [address]Dr. sonia Michelle DRUG CUT HEADER DRUG CLASS TEST SYSTEM CUT-OFF CONCENTRATIONS ARE FOLLOWS: Normal [facility] Comment on above: Performed By: #### D RUGRPD ####[facility] [address] [place], [place] [address]Dr. Sandi Michelle mAMP Negative Normal NEGATIVE [facility] Comment on above: Performed By: #### D RUGRPD ####[facility] [address] [place], [place] [address]Dr. Sandi Michelle MTD Negative Normal NEGATIVE [facility] Comment on above: Performed By: #### D RUGRPD ####[facility] [address] [place], [place] [address]Dr. Sandi Michelle OPI Negative Normal NEGATIVE [facility] Comment on above: Performed By: #### D RUGRPD ####[facility] [address] [place], [place] [address]Dr. Sandi Michelle OXY Negative Normal NEGATIVE [facility] Comment on above: Performed By: #### D RUGRPD ####[facility] [address] [place], [place] [address]Dr. Sandi Michelle PCP Negative Normal NEGATIVE [facility] Comment on above: Performed By: #### D RUGRPD ####[facility] [address] [place], [place] [address]Dr. Sandi Michelle PPX Negative Normal NEGATIVE [facility] Comment on above: Performed By: #### D RUGRPD ####[facility] [address] [place], [place] [address]Dr. Sandi Michelle TCA Negative Normal NEGATIVE [facility] Comment on above: Performed By: #### D RUGRPD ####[facility] [address] [place], [place] [address]Dr. Sandi Michelle THC Negative Normal NEGATIVE [facility] Comment on above: Performed By: #### D RUGRPD ####[facility] [address] [place], [place] [address]Dr. Sandi Michelle TYPE AND SCREENon 06-04-2022 TYPE AND SCREEN Negative Normal [facility] Comment on above: Performed By: #### T NS ####[facility] [address] [place], [place] [address]Dr. Sandi Michelle US PREG BIOPHY W NON [...] RIGO FISCHER Date: 2022-05-30 08:30 Normal [facility] GROUP B STREP CULTUREon S. agalactiae Ag Ql (Unsp spec) Culture Observations: NEGATIVE FOR GROUP B STREPTOCOCCUS. Normal [facility] Comment on above: Performed By: #### G BSCX ####[facility] [address] [place], [place] [address]Dr. Sandi Michelle US PREG BIOPHY W NON [...] by: RIGO FISCHER Date: 2022-05-23 09:41 Normal [facility] US PREG BIOPHY W NON STRESSo [...] by: RIGO FISCHER Date: 2022-05-16 16:10 Normal [facility] US PREG GROWTHon 05-11-2022 US PREG GROWTH EXAMINATION: US PREG GROWTH, US PREG CERVICAL LENGTH HISTORY: Excessive growth affecting management of mother COMPARISON: Ultrasound growth 04/27/2022 FINDINGS: Heart Rate: 137.8 bpm (accession [id number]), 167.3 bpm (accession [id number]) Number: 1.0 Position: BREECH Amniotic Fluid Volume: [...] by: TIFF BAUMANN Date: 2022-05-11 19:19 Normal [facility] US PREG GROWTHon 04-27-2022 US PREG [...] TIFF BAUMANN Date: 2022-04-27 20:51 Normal [facility] GLUCOSE - 1HRon 03-15-2022 Glucose [Mass/Vol] 137 mg/dL Critically high 74-106 [facility] Comment on above: Performed By: #### C BC #### [facility] [address] [place] [address] Dr. Sandi Michelle HEMOGRAM AND PLATELon 2021 Hematocrit (Bld) [Volume fraction] 34.9 % Critically low 36.0-48.0 [facility] Comment on above: Performed By: #### C BC #### [facility] [address] [place] [address] Dr. Sandi Michelle Hemoglobin (Bld) [Mass/Vol] 11.5 g/dL Critically low 12.0-16.0 [facility] Comment on above: Performed By: #### C BC #### [facility] [address] [place] [address] Dr. Sandi Michelle MCH (RBC) [Entitic mass] 31.8 pg Normal 26.7-34.0 [facility] Comment on above: Performed By: #### C BC #### [facility] [address] [place] [address] Dr. Sandi Michelel MCHC (RBC) [Mass/Vol] 33.0 g/dL Normal 29.9-35.2 [facility] Comment on above: Performed By: #### C BC #### [facility] [address] [place] [address] Dr. Sandi Michelle MCV (RBC) [Entitic vol] 96.4 fL Normal 81.0-99.0 [facility] Comment on above: Performed By: #### C BC #### [facility] [address] [place] [address] Dr. Sandi Michelle PLT 225 103/ul Normal 150-450 [facility] Comment on above: Performed By: #### C BC #### [facility] [address] [place] [address] Dr. Sandi Michelle RBC 3.62 106/ul Critically low 4.20-5.40 [facility] Comment on above: Performed By: #### C BC #### [facility] [address] [place] [address] Dr. Sandi Michelle WBC 12.9 103/ul Critically high 4.0-11.0 [facility] Comment on above: Performed By: #### C BC #### [facility] [address] [place] [address] Dr. Sandi Michelle CHLAMYDIA/GONOCOCCUS ALETHEA (SW AB/URINE/PAPon 02-04-2022 Chlamydia trachomatis, ALETHEA Negative Normal Negative [facility] Comment on above: Performed By: #### C T/NGNA #### [facility] [address] [place] [address] Dr. Sandi Michelle Neisseria gonorrhoeae, ALETHEA Negative Normal Negative [facility] Comment on above: Performed By: #### C T/NGNA #### [facility] [address] [place] [address] Dr. Sandi Michelle PAP ACOG PANEL 2: 30 to 65on 02-04-2022 . . Normal [facility] Comment on above: Result Comment: Perf ormed at: WB Performed By: #### [id number] ####[facility] [address] [id number] Michelle Age Gdln ACOG Testing 30-65 Normal [facility] Comment on above: Performed By: #### 4 [id number] ####[facility] [address] [address]DrDen Michelle DIAGNOSIS: Comment Normal [facility] Comment on above: Result Comment: NEGA TIVE FOR INTRAEPITHELIAL LESION OR MALIGNANCY. Performed at: WB Performed By: #### [id number] ####[facility] [address] [address]DrDen Michelle HPV Aptima Negative Normal Negative [facility] Comment on above: Result Comment: This nucleic acid amplification test detects fourteen high-risk HPV types (16,18,31,33,35,39,45,51,52,56,58,59,66,68) without differentiation. Performed at: =G Performed By: #### [id number] ####[facility] [address] [address]DrDen Michelle Methodology: Comment [facility] Comment on above: Result Comment: This liquid based ThinPrep(R) pap test was screened with the use of an image guided system. Performed at: WB Performed By: #### [id number] ####[facility] [address] [address]DrDen Michelle Note: Comment Normal [facility] Comment on above: Result Comment: The Pap smear is a screening test designed to aid in the detection of premalignant and malignant conditions of the uterine cervix. It is not a diagnostic procedure and should not be used as the sole means of detecting cervical cancer. Both false-positive and false-negative reports do occur. . Performed at: WB Performed By: #### [id number] ####[facility] [address] [address]DrDen Michelle Performed by: Comment Normal [facility] Comment on above: Result Comment: Vikas Mcclellan, Icer Hand (ASCP) Performed at: WB Performed By: #### [id number] ####[facility] [address] [address]Dr. Sandi Michelle Specimen adequacy: Comment Normal [facility] Comment on above: Result Comment: Sati sfactory for evaluation. No endocervical component is identified. Performed at: WB Performed By: #### [id number] ####[facility] [address] [id number]. Sandi Michelle VAGINITIS/VAGINOSIS DNA PROB Nicholas 02-03-2022 Kaitlynn species Negative Normal Negative [facility] Comment on above: Performed By: #### V AGINT ####[facility] [address] [address]Dr. Sandi Michelle Gardnerella vaginalis Negative Normal Negative [facility] Comment on above: Performed By: #### V AGINT ####[facility] [address] [address]Dr. Sandi Michelle Trichomonas vaginalis Negative Normal Negative [facility] Comment on above: Performed By: #### V AGINT ####[facility] [address] [address]Dr. Sandi Michelle US PREG ANATOMY SINGLEon US [...] RIGO FISCHER Date: 2022-02-01 19:32 Normal [facility] AFP MATERNAL FOR SPINA BIFID Aon 01-21-2022 AFP MoM 1.24 Normal [facility] Comment on above: Performed By: #### A FPMAT ####[facility] [address] [address]Dr. Sandi [facility] AFP Value 55.2 ng/mL Normal [facility] Comment on above: Performed By: #### A FPMAT ####[facility] [address] [address]Dr. Sandi Michelle AFP, Serum for Spina Bifida Report Normal [facility] Comment on above: Performed By: #### A FPMAT ####[facility] [address] [address]Dr. Sandi Michelle Comment Comment Normal [facility] Comment on above: Result Comment: Iesha Sullivan, Ph.D., [facility] Director . References: Available Upon Request. . Multiples Of Median Cutoffs For AFP Elevations Bhandari 2.5 Black 2.8 IDD 2.0 Twins 4.5 Abbreviation Definitions IDD - Insulin Dep Diabetes OSBR - Open Spina Bifida Risk . For further inquiries contact [employer] at [id number]. . This test was developed and its performance characteristics determined by [facility]. It has not been cleared or approved by the Food and Drug Administration. Performed By: #### A FPMAT ####[facility] [address] [place] [id number]. Sandi Miguel Angel Gest Age Collection Date 18.1 weeks Normal [facility] Comment on above: Performed By: #### A FPMAT ####[facility] [address] [place] [id number]. Sandi Michelle Gestat, Age Based on JOSE Normal [facility] Comment on above: Result Comment: 05/26 Recalculations are not recommended when gestational dating by LMP and ultrasound are within 10 days. Performed By: #### A FPMAT ####[facility] [address] [place] [address]Dr. Sandi Michlele Insulin Dep Diabetes Comment Normal [facility] Comment on above: Result Comment: Not provided. . Performed By: #### A FPMAT ####[facility] [address] [place] [address]Dr. Sandi Michelle Interpretation Comment Normal [facility] Comment on above: Result Comment: Inte [...] Customer Services to discuss available options. The [employer] recommends amniocentesis be offered to women age 35 and older. Performed By: #### A FPMAT ####[facility] [address] [place] [id number]. Sandi Michelle [age] Normal [facility] Comment on above: Performed By: #### A FPMAT ####[facility] [address] [place] [id number]. Sandi Michelle Multiple Gestation No Normal [facility] Comment on above: Performed By: #### A FPMAT ####[facility] [address] [place] [id number]. Sandi Michelle OSBR Risk 1 IN 5748 Normal [facility] Comment on above: Performed By: #### A FPMAT ####[facility] [address] [place] [id number]. Sandi Michelle PDF . Normal [facility] Comment on above: Performed By: #### A FPMAT ####[facility] [address] [place] [id number]. Sandi Michelle Race Normal [facility] Comment on above: Performed By: #### A FPMAT ####[facility] [address] [place] [address]DrDen Michelle Test Results: Negative Normal [facility] Comment on above: Performed By: #### A FPMAT ####[facility] [address] [place] [address]DrDen Michelle HEP B SURFACE ANTIGEN SCREEN on 11-22-2021 HBsAg Screen Negative Normal Negative [facility] Comment on above: Performed By: #### H BSANS ####[facility] [address] [place] [address]DrDen Michelle HEPATITIS C VIRUS AB W/ REFL EX QUANTon 11-22-2021 HCV AB 0.1 s/co ratio Normal 0.0-0.9 [facility] Comment on above: Performed By: #### C BC #### [facility] [address] [address] [address] Sandi Michelle Interpretation: Comment Normal [facility] Comment on above: Result Comment: Nega tive Not infected with HCV, unless recent infection is suspected or other evidence exists to indicate HCV infection. Performed By: #### C BC #### [facility] [address] [address] [address] Sandi Michelle HIV 1 AND 2 WITH REFLEXon HIV Screen 4th Generation wRfx Non-Reactive Normal Non Reactive [facility] Comment on above: Result Comment: HIV Negative HIV-1/HIV-2 antibodies and HIV-1 p24 antigen were NOT detected. There is no laboratory evidence of HIV infection. Performed By: #### H IV12 ####[facility] [address] [place] [address]Dr. Sandi Michelle RPR QUANTon 11-22-2021 Rapid Plasma Reagin, Quant Non-Reactive Normal NonRea<1:1 [facility] Comment on above: Result Comment: Plea se Note: This test does not meet current guidelines for screening and diagnosis of syphilis. This test is intended for following treatment response in patients being treated for syphilis infection. To screen for syphilis infection, a reflex cascade that includes both RPR and a treponema-specific assay should be utilized, such as Treponema pallidum (Syphilis) Screening [place] (843262) or Rapid Plasma Reagin (RPR) Test With Reflex to Quantitative RPR and Confirmatory Treponema pallidum Antibodies (416425). Performed By: #### C BC #### [facility] [address] [place] [address] Dr. Sandi Michelle RUBELLA AB IGGon 11-22-2021 Rubella Antibodies, IgG 9.33 index Normal Immune >0.99 [facility] Comment on above: Result Comment: Non- immune <0.90 Equivocal 0.90 - 0.99 Immune >0.99 Performed By: #### C BC #### [facility] [address] [place] [address] Dr. Sandi Michelle CBC AUTO DIFFon 11-21-2021 BASO # 0.0 103/ul Normal 0.0-0.1 [facility] Comment on above: Performed By: #### C BC #### [facility] [address] [place] [address] Dr. Sandi Michelle Basophils/100 WBC (Bld) 0.4 % Normal 0.2-2.0 [facility] Comment on above: Performed By: #### C BC #### [facility] [address] [place] [address] Dr. Sandi Michelle EO # 0.1 103/ul Normal 0.0-0.7 [facility] Comment on above: Performed By: #### C BC #### [facility] [address] [place] [address] Dr. Sandi Michelle Eosinophils/100 WBC (Bld) 0.6 % Critically low 0.9-7.0 [facility] Comment on above: Performed By: #### C BC #### [facility] [address] [place] [address] Dr. Sandi Michelle Erythrocyte distribution width (RBC) [Ratio] 11.9 % Normal 11.0-15.0 [facility] Comment on above: Performed By: #### C BC #### [facility] [address] [place] [address] Dr. Sandi Michelle Hematocrit (Bld) [Volume fraction] 37.1 % Normal 36.0-48.0 [facility] Comment on above: Performed By: #### C BC #### [facility] [address] [place] [address] Dr. Sandi Michelle Hemoglobin (Bld) [Mass/Vol] 12.2 g/dL Normal 12.0-16.0 [facility] Comment on above: Performed By: #### C BC #### [facility] [address] [place] [address] Dr. Sandi Michelle IG # 0.03 10e3/ul Normal 0.00-0.03 [facility] Comment on above: Performed By: #### C BC #### [facility] [address] [place] [address] Dr. Sandi Michelle IG % 0.4 % Normal 0.0-0.5 [facility] Comment on above: Performed By: #### C BC #### [facility] [address] [place] [address] Dr. Sandi Michelle LYMPH # 1.8 103/ul Normal 1.2-3.8 [facility] Comment on above: Performed By: #### C BC #### [facility] [address] [place] [address] Dr. Sandi Michelle Lymphocytes/100 WBC (Bld) 23.4 % Normal 20.5-60.0 [facility] Comment on above: Performed By: #### C BC #### [facility] [address] [place] [address] Dr. Sandi Michelle MANUAL DIFF REQ NO Normal [facility] Comment on above: Performed By: #### C BC #### [facility] [address] [place] [address] Dr. Sandi Michelle MCH (RBC) [Entitic mass] 31.4 pg Normal 26.7-34.0 [facility] Comment on above: Performed By: #### C BC #### [facility] [address] [place] [address] Dr. Sandi Michelle MCHC (RBC) [Mass/Vol] 32.9 g/dL Normal 29.9-35.2 [facility] Comment on above: Performed By: #### C BC #### [facility] [address] [place] [address] Dr. Sandi Michelle MCV (RBC) [Entitic vol] 95.6 fL Normal 81.0-99.0 [facility] Comment on above: Performed By: #### C BC #### [facility] [address] [place] [address] Dr. Sandi Michelle MONO # 0.5 103/ul Normal 0.3-0.8 [facility] Comment on above: Performed By: #### C BC #### [facility] [address] [place] [address] Dr. Sandi Michelle Monocytes/100 WBC (Bld) 6.6 % Normal 1.7-12.0 [facility] Comment on above: Performed By: #### C BC #### [facility] [address] [place] [address] Dr. Sandi Michelle NEUT # 5.4 103/ul Normal 1.4-6.5 [facility] Comment on above: Performed By: #### C BC #### [facility] [address] [place] [address] Dr. Sandi Michelle Neutrophils/100 WBC (Bld) 68.6 % Normal 43.0-75.0 [facility] Comment on above: Performed By: #### C BC #### [facility] [address] [place] [address] Dr. Sandi Michelle Platelet mean volume (Bld) [Entitic vol] 10.1 fL Normal 9.5-13.5 [facility] Comment on above: Performed By: #### C BC #### [facility] [address] [address] [address] Sandi Michelle PLT 237 103/ul Normal 150-450 [facility] Comment on above: Performed By: #### C BC #### [facility] [address] [address] [address] Sandi Michelle RBC 3.88 106/ul Critically low 4.20-5.40 [facility] Comment on above: Performed By: #### C BC #### [facility] [address] [address] [address] Sandi Michelle WBC 7.9 103/ul Normal 4.0-11.0 [facility] Comment on above: Performed By: #### C BC #### [facility] [address] [place] [address] Dr. Sandi Michelle CULTURE URINEon 11-21-2021 CULTURE URINE Culture Observations : LIGHT GROWTH OF MIXED GENITAL MENDEZ. NO POTENTIAL PATHOGENS SEEN. Normal [facility] Comment on above: Performed By: #### U RCX #### [facility] [address] [place] [address] Dr. Sandi Michelle GLYCOHEMOGLOBIN A1Con 2021 ADA RECOMMENDATION SEE BELOW Normal [facility] Comment on above: Result Comment: ADA RECOMMENDED LIMIT 4.0 - 6.0 ADA THERAPEUTIC TARGET < 7.0 ACTION SUGGESTED > 7.0 Performed By: #### A 1C ####[facility] [address] [place] [address]Dr. Sandi Michelle Glucose [Mass/Vol] 103 mg/dL Normal [facility] Comment on above: Performed By: #### A 1C ####[facility] [address] [place] [id number]. Sandi Michelle HbA1c (Bld) [Mass fraction] 5.2 % Normal 4.5-6.2 [facility] Comment on above: Performed By: #### A 1C ####[facility] [address] [place], [place] [address]Dr. Sandi Michelle TYPE AND SCREENon 11-21-2021 TYPE AND SCREEN Negative Normal [facility] Comment on above: Performed By: #### T NS #### [facility] [address] [place] [address] Dr. Sandi Michelle US PREG TVon 11-03-2021 [...] TIFF BAUMANN Date: 2021-11-03 07:19 Normal [facility] PREG QUANT HCGon 10-14-2021 HCG QUANT 469 mIU/mL Normal [facility] Comment on above: Performed By: #### P REGQNT #### [facility] [address] [place] [address] Dr. Sandi Michelle HCG RANGE SEE BELOW Normal [facility] Comment on above: Result Comment: 5-50 0-1 WEEK 40-300 1-2 WEEKS 100-1,000 2-3 WEEKS 500-6,000 3-4 WEEKS 5,000-200,000 1-2 MONTHS 10,000-100,000 2-3 MONTHS 3,000-50,000 2ND TRIMESTER 1,000-50,000 3RD TRIMESTER Performed By: #### P REGQNT #### [facility] [address] [address] [address] Sandi Michelle PREG QUANT HCGon 10-12-2021 HCG QUANT 184 mIU/mL Normal [facility] Comment on above: Performed By: #### C BC #### [facility] [address] [place] [address] Dr. Sandi Michelle HCG RANGE SEE BELOW Normal [facility] Comment on above: Result Comment: 5-50 0-1 WEEK 40-300 1-2 WEEKS 100-1,000 2-3 WEEKS 500-6,000 3-4 WEEKS 5,000-200,000 1-2 MONTHS 10,000-100,000 2-3 MONTHS 3,000-50,000 2ND TRIMESTER 1,000-50,000 3RD TRIMESTER Performed By: #### C BC #### [facility] [address] [address] [address] Sandi Michelle PROTEIN C FUNC ACTIVITYon Prt C Activity (Chromogenic) 130 % Normal [facility] Comment on above: Result Comment: Refe rence Range: 17 years and older: 73 - 180 Effective August 10, 2021 Prt C Activity, (Chromogenic) will be made non-orderable. This will not affect any profile that includes Prt C Activity (Chromogenic). [facility] offers 563201 Protein C Functional. For more information please contact your local [facility]. Performed By: #### P RCACT ####[facility] [address] [place] [id number]. Sandi Michelle FACTOR V LEIDEN MUTATION CIARAN LYSISon 07-27-2021 Factor V Leiden Comment Normal [facility] Comment on above: Result Comment: Resu lt: c.1601G>A (p.[id number]) - Not Detected . This result is not associated with an increased risk for venous thromboembolism. See Additional Clinical Information and Comments. Additional Clinical Information: Venous thromboembolism is a multifactorial disease influenced by genetic, environmental, and circumstantial risk factors. The c.1601G>A (p. Aik018Vxd) variant in the F5 gene, commonly referred [...] c.*97G>A variant and Factor V Leiden (PMID: 40902133). Additional risk factors include but are not [...] health care providers to discuss results at [phone] ([id number]). . Test Details: Variant Analyzed: c.1601G>A (p. [id number]), referred to as Factor V Leiden . [...] developed and its performance characteristics determined by [facility]. It has not been cleared or approved by the Food and Drug Administration. . References: Masoud S, Hawa AK, Randy R, Moses WW, Luis A JH; [employer] Professional Practice and Guidelines Committee. Addendum: [place] [employer] consensus statement on factor V Leiden mutation testing. [place] [facility]. 2020Sep 26. doi: 10.1038/l26179-183-37452-m. PMID: 99429912. . Miriam GAMING. Factor V Leiden Thrombophilia. 1998December 05 [Updated 2017Jul 28]. In: Jv MP, Delia HH, Ian RA, et al., editors. Jovita(R) [Internet]. [place] ([place]): [facility], [place]; 0226-1936. Available from: https://www.ncbi.nlm.nih.gov/books/SGV9274/ . Jonh S, Hawa AK, Francisco Javier X, Leobardo B, Ash EB, Deysi P, Mari CS; [facility] [employer] Trainer Committee. Venous thromboembolism laboratory testing (factor V Leiden and factor II c.*97G>A), 2018 update: a technical standard of the [employer] (ACMG). [place] [facility]. 2018 Jun;20(12):9381-9863. doi: 10.1038/y10194-115-5996-h. Epub 2017Apr 28. PMID: 19374005. . Martha Guillen, PhD, [facility] Lindsay Jaquez, PhD, FAC Pete Brown, PhD, FAC Geronimo Mcdaniel, PhD, FAC W Khushbu Hays, PhD, [facility] Maureen Mancilla, PhD, [facility] Performed By: #### F VPCR ####[facility] [address] [place] [address]Dr. Sandi Michelle ANTITHROMBIN ACTIVITYon Antithrombin Activity 102 % Normal 75-135 [facility] Comment on above: Result Comment: Dire ct Xa inhibitor anticoagulants such as rivaroxaban, apixaban and edoxaban will lead to spuriously elevated antithrombin activity levels possibly masking a deficiency. Performed By: #### C BC #### [facility] [address] [address] [address] Sandi Michelle B-2 GLYCOPROTEIN AB IGGon Beta-2 Glycoprotein I Ab, IgG <9 Normal 0-20 [facility] Comment on above: Result Comment: The reference interval reflects a 3SD or 99th percentile interval, which is thought to represent a potentially clinically significant result in accordance with the International Consensus Statement on the classification criteria for definitive antiphospholipid syndrome (APS). J Thromb Haem 2006;4:295-306. Performed By: #### B 2GPG ####[facility] [address] [place] [address]Dr. Sandi Michelle B2-GLYCOPROTEIN 1 AB IGMon 0 07-25-2021 Beta-2 Glycoprotein I Ab, IgM <9 Normal 0-32 [facility] Comment on above: Result Comment: The reference interval reflects a 3SD or 99th percentile interval, which is thought to represent a potentially clinically significant result in accordance with the International Consensus Statement on the classification criteria for definitive antiphospholipid syndrome (APS). J Thromb Haem 2006;4:295-306. Performed By: #### B GLYIGM ####[facility] [address] [place], [place] [address]Dr. Sandi Michelle LUPUS ANTICOAGULANT W/REFLEX on 07-24-2021 aPTT Coag (Bld) [Time] 30.9 s Normal 0.0-51.9 [facility] Comment on above: Performed By: #### L UPUSRF ####[facility] [address] [place], [place] [address]Dr. Sandi Michelle dRVVT 33.0 sec Normal 0.0-47.0 [facility] Comment on above: Performed By: #### L UPUSRF ####[facility] [address] [place], [place] [address]Dr. Sandi Michelle Interpretation Comment: Normal [facility] Comment on above: Result Comment: No l upus anticoagulant was detected. Performed By: #### L UPUSRF ####[facility] [address] [place], [place] [address]Dr. Sandi Michelle PROTEIN S ANTIGENon 07-24-20 21 Protein S, Free 104 % Normal 61-136 [facility] Comment on above: Performed By: #### P RTSAG ####[facility] [address] [place], [place] [address]Dr. Sandi Michelle Protein S, Total 90 % Normal 60-150 [facility] Comment on above: Result Comment: This test was developed and its performance characteristics determined by [facility]. It has not been cleared or approved by the Food and Drug Administration. Performed By: #### P RTSAG ####[facility] [address] [place], [place] [address]Dr. Sandi Michelle PROTEIN S, FUNCTIONALon 06-26 Protein S-Functional 107 % Normal 63-140 [facility] Comment on above: Result Comment: Prot ein S activity may be falsely increased (masking an abnormal, low result) in patients receiving direct Xa inhibitor (e.g., rivaroxaban, apixaban, edoxaban) or a direct thrombin inhibitor (e.g., dabigatran) anticoagulant treatment due to assay interference by these drugs. Performed By: #### C BC #### [facility] [address] [address] [address] Sandi Michelle ANTICARDIOLIPIN AB (JEANIE) IGG on 07-23-2021 Anticardiolipin Ab,IgG,Qn <9 Normal 0-14 [facility] Comment on above: Result Comment: Nega tive: <15 Indeterminate: 15 - 20 Low-Med Positive: >20 - 80 High Positive: >80 Performed By: #### C ARDLIP #### [facility] [address] [address] [address] Sandi Michelle ANTICARDIOLIPIN AB (JEANIE) IGM on 07-23-2021 Anticardiolipin Ab,IgM,Qn 12 MPL U/mL Normal 0-12 [facility] Comment on above: Result Comment: Nega tive: <13 Indeterminate: 13 - 20 Low-Med Positive: >20 - 80 High Positive: >80 Performed By: #### C ARDIGM ####[facility] [address] [place], [place] [address]NzDr. Sandi Michelle Vital Signs Date Time Vital Sign Value Performing Clinician Facility 09-26-2024 11:02-0500 Body mass index (BMI) [Ratio] 30.63 kg/m2 [employer] Work Phone: [facility] 09-26-2024 11:02-0500 Body weight 86.09 kg [employer] Work Phone: [facility] 09-26-2024 11:02-0500 Diastolic blood pressure 76 mm[Hg] [employer] Work Phone: [facility] 09-26-2024 11:02-0500 Systolic blood pressure 116 mm[Hg] Lee Keyona DO Work Phone: [facility] 09-12-2024 14:53-0500 Body mass index (BMI) [Ratio] 30.02 kg/m2 Lee Keyona DO Work Phone: [facility] 09-12-2024 14:53-0500 Body weight 84.37 kg Lee Keyona DO Work Phone: [facility] 09-12-2024 14:53-0500 Diastolic blood pressure 70 mm[Hg] Lee Keyona DO Work Phone: [facility] 09-12-2024 14:53-0500 Systolic blood pressure 120 mm[Hg] Lee Keyona DO Work Phone: [facility] 08-29-2024 15:30-0500 Body mass index (BMI) [Ratio] 29.92 kg/m2 Lee Keyona DO Work Phone: [facility] 08-29-2024 15:30-0500 Body weight 84.1 kg Lee Keyona DO Work Phone: [facility] 08-29-2024 15:30-0500 Diastolic blood pressure 70 mm[Hg] Lee Keyona DO Work Phone: [facility] 08-29-2024 15:30-0500 Systolic blood pressure 120 mm[Hg] Lee Keyona DO Work Phone: [facility] 08-09-2024 09:39-0500 Body mass index (BMI) [Ratio] 30.18 kg/m2 Lee Keyona DO Work Phone: [facility] 08-09-2024 09:39-0500 Body weight 84.82 kg Lee Keyona DO Work Phone: [facility] 08-09-2024 09:39-0500 Diastolic blood pressure 64 mm[Hg] Lee Keyona DO Work Phone: [facility] 08-09-2024 09:39-0500 Systolic blood pressure 114 mm[Hg] Lee Keyona DO Work Phone: [facility] 07-12-2024 09:59-0500 Body mass index (BMI) [Ratio] 29.39 kg/m2 Lee Keyona DO Work Phone: [facility] 07-12-2024 09:59-0500 Body weight 82.61 kg Lee Keyona DO Work Phone: [facility] 07-12-2024 09:59-0500 Diastolic blood pressure 68 mm[Hg] Lee Keyona DO Work Phone: [facility] 07-12-2024 09:59-0500 Systolic blood pressure 108 mm[Hg] Lee Keyona DO Work Phone: [facility] 06-11-2024 16:44-0500 Body mass index (BMI) [Ratio] 28.59 kg/m2 Lee Keyona DO Work Phone: [facility] 06-11-2024 16:44-0500 Body weight 80.34 kg Lee Keyona DO Work Phone: [facility] 06-11-2024 16:44-0500 Diastolic blood pressure 70 mm[Hg] Lee Keyona DO Work Phone: [facility] 06-11-2024 16:44-0500 Systolic blood pressure 108 mm[Hg] Lee Keyona DO Work Phone: [facility] 05-08-2024 15:11-0400 Body mass index (BMI) [Ratio] 27.76 kg/m2 Lee Keyona DO Work Phone: [facility] 05-08-2024 15:11-0400 Body weight 78.02 kg Lee Keyona DO Work Phone: [facility] 05-08-2024 15:11-0400 Diastolic blood pressure 70 mm[Hg] Lee Keyona DO Work Phone: [facility] 05-08-2024 15:11-0400 Systolic blood pressure 112 mm[Hg] Lee Keyona DO Work Phone: [facility] 04-05-2024 14:24-0400 Body mass index (BMI) [Ratio] 27.76 kg/m2 [facility] 04-05-2024 14:040 Body weight 78.02 kg [facility] Nurse [facility] 04-05-2024 14:240400 Diastolic blood pressure 68 mm[Hg] [facility] 04-05-2024 14:040 Systolic blood pressure 118 mm[Hg] [facility] 01-21-2022 03:06040 Body weight 72.[address] LEE RAND [facility] Comment on above: Performed By: #### A FPMAT ####[facility] [address] [place], [place] [address]YeDr. Sandi Michelle Encounters Encounter Date Encounter Type Care Provider Facility Start: 09-26-2024 End: 09-26-2024 Bamboo flowsheet Lee Keyona DO Work Phone: [facility] [facility] Start: 09-26-2024 End: 09-26-2024 Bamboo flowsheet Lee Keyona DO Work Phone: [facility] Start: 09-26-2024 End: 09-26-2024 flow sheet Lee Keyona DO Work Phone: [facility] Comment on above: Third trimester preg jaye; 33 weeks gestation of Start: 09-25-2024 End: 09-25-2024 Clinisync Result Encounter Lee Keyona DO Work Phone: [facility] External Department Unsolicited Start: 09-25-2024 End: 09-25-2024 Clinisync Result Encounter Lee Keyona DO Work Phone: [facility] Unsolicited Start: 09-18-2024 End: 09-18-2024 Clinisync Result Encounter Lee Keyona DO Work Phone: [facility] Unsolicited Start: 09-18-2024 End: 09-18-2024 Clinisync Result Encounter Lee Keyona DO Work Phone: [facility] Unsolicited Start: 09-12-2024 End: 09-12-2024 flow sheet Lee Keyona DO Work Phone: [facility] Comment on above: 31 weeks [...] Bamboo flowsheet Lee Keyona DO Work Phone: [facility] Start: 07-12-2024 End: 07-12-2024 [...] 8w5d Start: 01-02-2024 End: 01-02-2024 ambulatory LEE RAND Not Available Start: 12-29-2023 End: 12-29-2023 ambulatory LEE RAND Not Available Start: 06-10-2022 End: 06-10-2022 [...] Date Procedure Procedure Detail Performing Clinician Start: 09-26-2024 Urnls dip stick/tabl et rgnt non-auto w/o micrscp Lee Keyona DO Work Phone: Start: 09-25-2024 US OB BPP W NON-STRESS Lee Keyona DO Work Phone: Start: 09-18-2024 US OB BPP W NON-STRESS Lee Keyona DO Work Phone: Start: 09-12-2024 Urnls dip [...] Treatment Date Care Activity Detail Author Start: 10-11-2024 End: 10-11-2024 Patient encounter procedure 10/11/2024 8:30 AM EDT Routine [facility] [address] [place] [id number] Lee Rand DO [address] [place] [address] [facility] Start: 09-26-2024 End: 09-26-2024 Patient encounter procedure [facility] Comment on above: Arrived Start: 09-12-2024 End: 09-12-2024 Patient encounter procedure 09/12/2024 2:30 PM EST Rout[facility] [address] [place] [id number] Lee Rand DO [address] [place] [address] [facility] Start: 08-29-2024 End: 08-29-2024 [...] AM EST Routine [facility] [address] [place] [phone] Lee Rand, DO [address] [place], [place] [id number] [facility] Start: 07-31-2024 End: 07-31-2024 Patient encounter procedure 07/31/2024 1:00 PM EST Office Visit [facility] [address] [facility] [place] [phone] Lee Rand, DO [address] [place], [place] [id number] [facility] Start: 07-12-2024 End: 07-12-2025 CBC panel - Blood by Automated count CBC Lab Routine Diabetes mellitus screening Expected: 07/12/2024 (Approximate), Expires: 07/12/2025 [facility] Work Phone: Comment on above: Expected: 07/12/2024 (Approximate), Expires: 07/12/2025 Start: 07-12-2024 End: 07-12-2025 Measurement of glucose 1 hour after glucose challenge for glucose tolerance test Glucose tolerance, 1 hour Lab Routine Diabetes mellitus screening Expected: 07/12/2024 (Approximate), Expires: 07/12/2025 [facility] Comment on above: Expected: 07/12/2024 (Approximate), Expires: 07/12/2025 Start: 07-12-2024 End: 07-12-2024 Patient encounter procedure [facility] Comment on above: Arrived Start: 06-11-2024 End: 06-11-2024 Patient encounter procedure 06/11/2024 3:50 PM EST Routine [facility] [address] [place] [phone] Lee Rand, [address] [place] [address] [facility] Start: 06-11-2024 End: 12-09-2024 [...] gestational age Expected: 04/05/2024 (Approximate), Expires: 04/05/2025 [facility] Comment on above: Expected: 04/05/2024 (Approximate), Expires: 04/05/2025 Start: 04-05-2024 End: 04-05-2025 US Pelvis transvaginal US OB transvaginal Imaging Routine Missed menses Expected: 04/05/2024 (Approximate), Expires: 04/05/2025 [facility] Comment on above: Expected: 04/05/2024 (Approximate), Expires: 04/05/2025 Bacteria identified in Urine by Culture Urine culture Microbiology Routine Missed menses Ordered: 04/05/2024 [facility] Comment on above: Ordered: 04/05/2024 CBC W Auto Different ial panel - Blood CBC and differential Lab Routine Missed menses Ordered: 04/05/2024 [facility] Comment on above: Ordered: 04/05/2024 CHLAMYDIA TRACHOMATI S (GENITO/STI) CHLAMYDIA TRACHOMATIS (GENITO/STI) Lab Routine STD exposure Ordered: 06/11/2024 [facility] Comment on above: Ordered: 06/11/2024 Hemoglobin A1c/Hemoglobin.total in Blood Hemoglobin A1c Lab Routine Missed menses Ordered: 04/05/2024 [facility] Comment on above: Ordered: 04/05/2024 Hepatitis B virus surface Ag [Presence] in Serum or Plasma by Immunoassay Hepatitis B surface antigen Lab Routine Missed menses Ordered: 04/05/2024 [facility] Comment on above: Ordered: 04/05/2024 Hepatitis C virus Ab [Presence] in Serum or Plasma by Immunoassay Hepatitis C antibody Lab Routine Missed menses Ordered: 04/05/2024 [facility] Comment on above: Ordered: 04/05/2024 HIV-1/HIV-2 antigen/antibody combination immunoassay HIV-1 and HIV-2 antibodies Lab Routine Missed menses Ordered: 04/05/2024 [facility] Comment on above: Ordered: 04/05/2024 Neisseria gonorrhoea e DNA [Presence] in Unspecified specimen by ALETHEA with probe detection Neisseria gonorrhea DNA probe, direct Lab Routine STD exposure Ordered: 06/11/2024 [facility] Comment on above: Ordered: 06/11/2024 Reagin Ab [Presence] in Serum by RPR RPR Lab Routine Missed menses Ordered: 04/05/2024 [facility] Comment on above: Ordered: 04/05/2024 Rubella antibody, IgG Rubella an tibody, IgG Lab Routine Missed menses Ordered: 04/05/2024 [facility] Comment on above: Ordered: 04/05/2024 SURESWAB(R) ADVANCED VAGINITIS PLUS, TMA SURESWAB(R) ADVANCED VAGINITIS PLUS, TMA Pathology and Cytology Routine Vaginal discharge Ordered: 06/11/2024 [facility] Work Phone: Comment on above: Ordered: 06/11/2024 Payers Date Payer Category Payer Private Health Insurance [employer] [id number] 2024 Unknown [id number] 2020 [facility] (unspecified) [id number] 1991 Unknown [id number] 2.16.840.1.751915.3.579.2. 593 1991 Unknown [id number] 2.16.840.1.685440.3.579.2. 593 1991 Unknown [id number] 2.16.840.1.258054.3.579.2. 593 1991 Unknown [id number] 2.16.840.1.113826.3.579.2. 593 1991 Unknown [id number] 2.16.840.1.724496.3.579.2. 593 1991 Unknown [id number] 2.16.840.1.143758.3.579.2. 593 1991 Unknown [id number] 2.16.840.1.400716.3.579.2. 593 1991 Unknown [id number] 2.16.840.1.054761.3.579.2. 593 1991 Unknown [id number] 2.16.840.1.546577.3.579.2. 593 1991 Unknown [id number] 2.16.840.1.511715.3.579.2. 593 1991 Unknown [id number] 2.16.840.1.072559.3.579.2. 593 1991 Unknown [id number] 2.16.840.1.552239.3.579.2. 593 1991 Unknown [id number] 2.16.840.1.121976.3.579.2. 593 1991 Unknown [id number] 2.16.840.1.897772.3.579.2. 593 1991 Unknown [id number] 2.16.840.1.593715.3.579.2. 593 1991 Unknown [id number] 2.16.840.1.489171.3.579.2. 593 1991 Unknown [id number] 2.16.840.1.371989.3.579.2. 593 1991 Unknown [id number] 2.16.840.1.846938.3.579.2. 593 1991 Unknown [id number] 2.16.840.1.389295.3.579.2. 593 1991 Unknown [id number] 2.16.840.1.064451.3.579.2. 593 1991 Unknown [id number] 2.16.840.1.319680.3.579.2. 593 1991 Unknown [id number] 2.16.840.1.527355.3.579.2. 9 1991 Unknown [id number] 2.16.840.1.915339.3.579.2. 9 1991 Unknown [id number] 2.16.840.1.055919.3.579.2. 9 1991 Unknown [id number] 2.16.840.1.234361.3.579.2. 9 1991 Unknown [id number] 2.16.840.1.501343.3.579.2. 9 1991 Unknown [id number] 2.16.840.1.001533.3.579.2. 9 1991 Unknown [id number] 2.16.840.1.266549.3.579.2. 9 1991 Unknown [id number] 2.16.840.1.602947.3.579.2. 9 1991 Unknown [id number] 2.16.840.1.240877.3.579.2. 1259 1959 Private Health Insurance [id number] Social History Date Type Detail Facility Start: 02-08-2023 Tobacco smoking stat [facility] Never smoked tobacco [facility] Start: 02-08-2023 Tobacco use and exposure Smokeless t obacco non-user [facility] Start: 04-05-2024 End: 09-12-2024 Alcoholic beverage intake Lifetime non-drinker (finding) [facility] Start: 07-19-2023 End: 01-02-2024 History of Social function [facility] Start: 07-19-2023 End: 01-02-2024 Tobacco use panel [facility] Start: 02-18-2024 [facility] Start: 1990 Sex assigned at Female [facility] Start: 02-06-2023 Gender identity Identifies as female gender (finding) [facility] Start: 02-06-2023 Sexual orientation Heterosexual (tatiana gonzalez) [facility] Medical Equipment Procedure Code Equipment Code Equipment Origin al Text Equipment Identifier Dates 1 strip by In Vi tro route Daily Use in the morning prior to breakfast, 1 hour after each meal for a total of 4times daily. [id number] Start: 08-09-2024 End: 09-12-2024 1 each by In Vit ro route Daily Use to check FSBS four times daily [id number] Start: 08-09-2024 End: 09-12-2024 Goals Date Patient Goal Desired Activity /State Personal health goal Clinical Notes 06-04-2022 to 09-26-2024 Tere Hu, [facility] - 09/26/2024 11:10 AM David Hu, [facility] - 09/12/2024 2:30 PM David Hu, [facility] - 08/29/2024 3:20 PM Corbin Parsons, [facility] - 08/09/2024 9:10 AM EST Note Date & Type Note Facility 09-26-2024 History of Presen t illness Narrative Reason [...] Cancer Paternal Grandmother Decemberrishabh Arthritis Paternal Grandmother Decemberrishabh Hypertension Paternal Grandmother December SURGICAL HISTORY Past [...] nursing note reviewed. Exam conducted with a registered mail clerk present. Vitals: Estimated body mass index is 30.63 kg/m as calculated from the following: Height as of 01/02/24: 5' 6 . Weight as of this encounter: 189 lb 12.8 oz. BP: 116/76 Patient's last menstrual period was 02/04/2024. ASSESSMENT & PLAN ICD-10-CM 1. Third trimester Z34.93 POCT urinalysis dipstick manually resulted 2. 33 weeks gestation of Z3A.33 Return OB: Patient presents today for a routine obstetrics appointment. Patient is currently 33w4d . Patient states she is doing well but has complaints of being tired due to current . Patient has verbalizes frequent movement. labor precautions was discussed/given and patient was instructed to perform kick counts three times a day. At [facility] pt found out VSD noted- pt to return to [facility] on 10/03 for echo. Orders Placed This Encounter Procedures POCT urinalysis dipstick manually resulted Follow Up: Patient is to return to office in 2 week for routine OB appointment. Documented by Tere Hu LPN on behalf of: Lee Rand DO documented in this encounter [facility] 09-12-2024 History of Presen t illness Narrative [...] nursing note reviewed. Exam conducted with a registered mail clerk present. Vitals: Estimated body mass index is [...] Lee Rand DO documented in this encounter [facility] 08-29-2024 History of Presen t illness Narrative [...] 81 mg, Daily Blood Glucose Monitoring Suppl (D-Viximo Glucometer) w/Device kit 1 kit, Does not [...] Grandmother Isis Davis Hypertension Paternal Grandmother Isis Weickert SURGICAL HISTORY Past Surgical History: Procedure Laterality [...] nursing note reviewed. Exam conducted with a registered mail clerk present. Vitals: Estimated body mass index is [...] kick counts three times a day. Reviewed M visit with pt in detail. Pt to [...] Lee Rand DO documented in this encounter [facility] 08-09-2024 History of Presen t illness Narrative [...] Known Problems Brother Diabetes Maternal Grandfather Bo Hemesfinan Cancer Paternal Grandmother Decembersushant Arthritis Paternal Grandmother Decembersushant Hypertension Paternal Grandmother December SURGICAL HISTORY Past [...] nursing note reviewed. Exam conducted with a registered mail clerk present. Vitals: Estimated body mass index is [...] Lee Rand DO documented in this encounter [facility] 07-12-2024 History of Presen t illness Narrative [...] nursing note reviewed. Exam conducted with a registered mail clerk present. Vitals: Estimated body mass index is [...] with patient and she is scheduled with [facility] for confirmation of complete placenta previa. Patient to return to clinic in 4 weeks for routine OB. Documented by Miranda Parsons LPN on behalf of: Lee Rand DO documented in this encounter [facility] 06-11-2024 History of Presen t illness Narrative [...] Grandfather Bo Albright Cancer Paternal Grandmother Isis Steverishabh Arthritis Paternal Grandmother Isis Michelakatelyn Hypertension Paternal Grandmother Isis Michelakatelyn SURGICAL HISTORY Past Surgical History: Procedure Laterality [...] nursing note reviewed. Exam conducted with a registered mail clerk present. Vitals: Estimated body mass index is [...] Lee Rand DO documented in this encounter [facility] 05-08-2024 History of Presen t illness Narrative [...] nursing note reviewed. Exam conducted with a registered mail clerk present. Vitals: Estimated body mass index is [...] or undercooked meat, and stay away from [facility]. Patient has been consulted regarding any further do's and don'ts of . Patient voiced understanding and all questions and concerns were answered. Orders Placed This Encounter Procedures POCT urinalysis dipstick manually resulted Follow Up: Patient is to return in 4 weeks for routine OB appointment. Documented by Tere Hu LPN on behalf of: Lee Rand DO documented in this encounter [facility] 04-05-2024 History of Presen t illness Narrative [...] Known Problems Brother Diabetes Maternal Grandfather Bo Helisandrotman Cancer Paternal Grandmother Decembersushant Arthritis Paternal Grandmother Decembersushant Hypertension Paternal Grandmother Decembersushant Social History Tobacco Use Smoking status: Never [...] or undercooked meat, and stay away from [facility]. Patient has also been advised to [...] by: Janis Hylton documented in this encounter [facility] 06-04-2022 Note OPERATIVE NOTE OPERATION DATE: 06/04/2022 PROCEDURE: Primary low transverse section. PREOPERATIVE DIAGNOSIS: 1. Intrauterine at 37 5/7 weeks. 2. Breech presentation. POSTOPERATIVE DIAGNOSIS: 1. Intrauterine at 37 5/7 weeks. 2. Breech presentation. 3. 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 SURGEON: Lee Rand MAGAZINE HAND: SCARLET Albert URINE OUTPUT: Yellow and clear. [...] the Recovery Room in stable condition. [facility] Evaluation note Diagnosis 13 weeks gestation [...] [facility] Diagnosis Third trimester state, incidental 33 weeks gestation of documented in this encounter [facility] Summary Purpose Family History No Family History Records FoundNo Family History Records Found Advance Directives No Advanced Directives Records FoundNo Advanced Directives Records Found Additional Source Comments INFORMATION SOURCE (unrecogn ized section and content) DATE CREATED AUTHOR 06/14/2022 [facility] DATE CREATED AUTHOR AUTHOR'S ORGANIZ ATION 09/14/2024 [facility] Care Teams (unrecognized sec tion and content) Applications Processor Relationship Specialty Start Date End Date Fito Cueto MD [address] [place] [address] PCP - General Family Medicine 02/09/23 Applications Processor Relationship Specialty Start Date End Date Fito Cueto MD [address] [place] [address] PCP - General Family Medicine 02/09/23 Applications Processor Relationship Specialty Start Date End Date Fito Cueto MD [address] [place] [address] PCP - General Family Medicine 02/09/23 Applications Processor Relationship Specialty Start Date End Date Fito Cueto MD [address] [place] [address] PCP - General Family Medicine 02/09/23 Applications Processor Relationship Specialty Start Date End Date Fito Cueto MD [address] [place] [address] PCP - General Family Medicine 02/09/23 Applications Processor Relationship Specialty Start Date End Date Fito Cueto MD [address] [place] [address] PCP - General Family Medicine 02/09/23 Applications Processor Relationship Specialty Start Date End Date Fito Cueto MD [address] [place] [address] PCP - General Family Medicine 02/09/23 Applications Processor Relationship Specialty Start Date End Date Fito Cueto MD [address] [place] [address] PCP - General Family Medicine 02/09/23 Applications Processor Relationship Specialty Start Date End Date Fito Cueto MD [address] [place] [address] PCP - General Family Medicine 02/09/23 Applications Processor Relationship Specialty Start Date End Date Fito Cueto MD [address] [place] [address] PCP - General Family Medicine 02/09/23 Applications Processor Relationship Specialty Start Date End Date Fito Cueto MD [address] [place] [address] PCP - General Family Medicine 02/09/23 Applications Processor Relationship Specialty Start Date End Date Fito Cueto MD [address] [place] [address] PCP - General Family Medicine 02/09/23 Reason [...] BE BASED ON THE PRIMARY CLINICAL RECORDS. [employer] provides no warranty or guarantee of the accuracy or completeness of information in this document.
[2024-09-27 17:58] VITALS: BP 114/60; PULSE 102
--- NOTE | 2024-09-27 18:31 | PC.NURSE ---
Addendum entered by Shruthi Messer 09/27/24 18:36: Pt denies vaginal bleeding or leaking of fluid. Original Note: 1800-Pt complaining of cxt's intermittently; pt states cxt's go away at times and she also states she started feeling cxt's for the 1st time this morning. RN educates pt regarding cxt occurence and conssitency; [facility] antepartum d/c instructions given w/ [facility] number to call with questions or concerns.
== END 2024-09-27 18:27 | disposition home or self-care (01) ==
LOC: FBCO 01:57 → FBC 17:54
PROVIDERS: Visit Provider Obstetrics & Gynecology
DX: O24.419 Gestational diabetes mellitus in pregnancy, unspecified control (principal); Z3A.33 33 weeks gestation of pregnancy
CPT/HCPCS: 59025

== ENCOUNTER 2024-10-02 18:45 | Outpatient (OUT) | payer OTHER, SELFPAY ==
--- OUTSIDE RECORDS SUMMARY | 2024-10-02 18:48 | XMS_ITS | CCD ---
Author Organization [facility] Care Team Providers Care Woolen Suiting Shrinker Name Role Phone KEYONA, DR LAWRENCE Admitting [...] Consulting Unavailable KEYONA, DR LAWRENCE Admitting Unavailable KEYOAN, DR LAWRENCE Attending Unavailable GIOVANA, DR AVI [...] Attending Unavailable TELLY, DR PENNINGTON Consulting Unavailable CAMP PENDLETON, DR RIGO Medina Consulting Unavailable KEYONA, DR [...] sources) Acetaminophen / HYDROcodone Drug Allergy [facility] Repository Medications Current Medications Medication Drug Class(es) [...] [facility] Comment on above: Trace - Intact Clarity, UA Clear [facility] [...] 0.2 0.2 - 12 mg/dL [facility] US OB BPP W NON-STRESS on 09-25-2024 [place] [address] Ultrasound Report Signed Patient: ANNA LAW MR#: [id number] : 1990 Acct:[id number] Age/Sex: 34 / F ADM Date: 09/25/24 Loc: US Attending Dr: Lee Rand D.O. Ordering Physician: Lee Rand D.O. Date of Service: 09/25/24 Procedure(s): US OB BPP w non-stress Accession Number(s): [id number] cc: Lee Rand D.O.; Physician,Non-Staff [place] [address] Patient Name: ANNA LAW MRN: [facility]:[id number] date: 1990 Sex: F Assigned Patient Location: [facility] Current Patient Location: Accession/Order Number: [id number] Exam Date: 09/25/2024 22:21 Report Date: 09/25/2024 22:23 At the request of: LEE RAND DO Procedure: US OB BPP w non-stress Biophysical profile. Reason for exam: Diet-controlled gestational diabetes. COMPARISON: BPP 09/18/2024 Technique: Transabdominal imaging of the gravid uterus was obtained. FINDINGS: Appeals Reviewer Veteran reports the BPP is 8 out of 8. JAS is normal at 12.8 cm. heart rate 127 bpm. US/US OB BPP w non-stress IMPRESSION: BPP 8 out of 8. Impression dictated by: Pete Engle Jr., D.O.09/25/2024 10:23 PM Dictation Location: [place] [address] Electronically authenticated by: [id number] Y Date: 09/25/2024 22:23 Dictated By: Pete Engle M.D. Signed By: 09/25/242224 DD/ 22 TD/TT: Ethics Instructor: [facility] Radiology, Radiologist, MD - 09/25/2024 [place] [address] Ultrasound Report Signed Patient: ANNA LAW MR#: [id number] : 1990 Acct:[id number] Age/Sex: 34 / F ADM Date: 09/25/24 Loc: US Attending Dr: Lee Rand D.O. Ordering Physician: Lee Rand D.O. Date of Service: 09/25/24 Procedure(s): US OB BPP w non-stress Accession Number(s): [id number] cc: Lee Rand D.O.; Physician,Non-Staff [place] [address] Patient Name: ANNA LAW MRN: [facility]:[id number] date: 1990 Sex: F Assigned Patient Location: [facility] Current Patient Location: Accession/Order Number: [id number] Exam Date: 09/25/2024 22:21 Report Date: 09/25/2024 22:23 At the request of: LEE RAND DO Procedure: US OB BPP w non-stress Biophysical profile. Reason for exam: Diet-controlled gestational diabetes. COMPARISON: BPP 09/18/2024 Technique: Transabdominal imaging of the gravid uterus was obtained. FINDINGS: Appeals Reviewer Veteran reports the BPP is 8 out of 8. JAS is normal at 12.8 cm. heart rate 127 bpm. US/US OB BPP w non-stress IMPRESSION: BPP 8 out of 8. Impression dictated by: Pete Egnle Jr., D.O.09/25/2024 10:23 PM Dictation Location: [place] [address] Electronically authenticated by: [id number] Y Date: 09/25/2024 22:23 Dictated By: Pete Engle M.D. Signed By: 09/25/242224 DD/ 22 TD/TT: Ethics Instructor: [facility] Radiology Study observation (narrative) [facility] US OB BPP W NON-STRESS Ordered By: Radiologist Radiology on 09-25-2024 [facility] Work Phone: US OB BPP W NON-STRESS on 09-18-2024 [place] [address] Ultrasound Report Signed Patient: ANNA LAW MR#: [id number] : 1990 Acct:[id number] Age/Sex: 34 / F ADM Date: 09/18/24 Loc: US Attending Dr: Lee Rand D.O. Ordering Physician: Lee Rand D.O. Date of Service: 09/18/24 Procedure(s): US OB BPP w non-stress Accession Number(s): [id number] cc: Lee Rand D.O.; Physician,Non-Staff [place] [address] Patient Name: ANNA LAW MRN: [id number] date: 1990 Sex: F Assigned Patient Location: US Current Patient Location: Accession/Order Number: [id number] Exam Date: 09/18/2024 22:52 Report Date: 09/18/2024 22:56 At the request of: LEE RAND DO Procedure: US OB BPP w non-stress Biophysical profile. Reason for exam: Diet-controlled gestational diabetes. COMPARISON: BPP 09/12/2024. Technique: Transabdominal imaging of the gravid uterus was obtained. FINDINGS: Appeals Reviewer Veteran reports the BPP is 8 out of 8. JAS is normal at 14.3 cm. heart rate 135 bpm. US/US OB BPP w non-stress IMPRESSION: BPP 8 out of 8. Impression dictated by: Pete Engle Jr., D.O.09/18/2024 10:56 PM Dictation Location: [place] [address] Electronically authenticated by: [id number] Y Date: 09/18/2024 22:56 Dictated By: Pete Engle M.D. Signed By: 09/18/242257 DD/ 55 TD/TT: Ethics Instructor: [facility] Radiology, Radiologist, MD - 09/18/2024 [place] [address] Ultrasound Report Signed Patient: ANNA LAW MR#: [id number] : 1990 Acct:[id number] Age/Sex: 34 / F ADM Date: 09/18/24 Loc: US Attending Dr: Lee Rand D.O. Ordering Physician: Lee Rand D.O. Date of Service: 09/18/24 Procedure(s): US OB BPP w non-stress Accession Number(s): [id number] cc: Lee Rand D.O.; Physician,Non-Staff [place] [id number] Patient Name: ANNA LAW MRN: [facility]:[id number] date: 1990 Sex: F Assigned Patient Location: US Current Patient Location: Accession/Order Number: [id number] Exam Date: 09/18/2024 22:52 Report Date: 09/18/2024 22:56 At the request of: LEE RAND DO Procedure: US OB BPP w non-stress Biophysical profile. Reason for exam: Diet-controlled gestational diabetes. COMPARISON: BPP 09/12/2024. Technique: Transabdominal imaging of the gravid uterus was obtained. FINDINGS: Appeals Reviewer Veteran reports the BPP is 8 out of 8. JAS is normal at 14.3 cm. heart rate 135 bpm. US/US OB BPP w non-stress IMPRESSION: BPP 8 out of 8. Impression dictated by: Pete Engle Jr., D.O.09/18/2024 10:56 PM Dictation Location: [facility] Electronically authenticated by: [id number] Y Date: 09/18/2024 22:56 Dictated By: Pete Engle M.D. Signed By: 09/18/242257 DD/ 55 TD/TT: Ethics Instructor: [facility] Radiology Study observation (narrative) [facility] US OB BPP W NON-STRESS Ordered By: Radiologist Radiology on 09-18-2024 [facility] Work Phone: US OB BPP W NON-STRESS on 09-12-2024 [place] [address] Ultrasound Report Signed Patient: ANNA LAW MR#: [id number] : 1990 Acct:[id number] Age/Sex: 34 / F ADM Date: 09/11/24 Loc: US Attending Dr: Lee Rand D.O. Ordering Physician: Lee Rand D.O. Date of Service: 09/11/24 Procedure(s): US OB BPP w non-stress Accession Number(s): [id number] cc: Lee Rand D.O.; Physician,Non-Staff [place] [address] Patient Name: ANNA LAW MRN: [facility]:[id number] date: 1990 Sex: F Assigned Patient Location: [facility] Current Patient Location: Accession/Order Number: [id number] Exam Date: 09/12/2024 09:01 Report Date: 09/12/2024 [...] 31 weeks 3 days. The heart rate [id number] beats per minute. FINDINGS: TONE: 1 or [...] Tere Munoz M.D.09/12/2024 9:04 AM Dictation [facility] Electronically authenticated by: [id number] Y Date: 09/12/2024 09:04 Dictated By: Tere Munoz M.D. Signed By: 09/12/24905 DD/ 3 TD/TT: Ethics Instructor: [facility] Radiology, Radiologist, MD - 09/12/2024 [place] [address] Ultrasound Report Signed Patient: ANNA LAW MR#: [id number] : 1990 Acct:[id number] Age/Sex: 34 / F ADM Date: 09/11/24 Loc: US Attending Dr: Lee Rand D.O. Ordering Physician: Lee Rand D.O. Date of Service: 09/11/24 Procedure(s): US OB BPP w non-stress Accession Number(s): [id number] cc: Lee Rand D.O.; Physician,Non-Staff [place] [address] [address] Patient Name: ANNA LAW MRN: [facility]:[id number] date: 1990 Sex: F Assigned Patient Location: [facility] Current Patient Location: Accession/Order Number: [id number] Exam Date: 09/12/2024 09:01 Report Date: 09/12/2024 [...] 31 weeks 3 days. The heart rate vlllessx138 beats per minute. FINDINGS: TONE: 1 or [...] This is in normal range. Total score: 8/ US/US OB BPP w non-stress IMPRESSION: NORMAL BIOPHYSICAL PROFILE. Impression dictated by: Tere Munoz M.D.09/12/2024 9:04 AM Dictation Location: [facility] Electronically authenticated by: [id number] Y Date: 09/12/2024 09:04 Dictated By: Tere Munoz M.D. Signed By: 09/12/24905 DD/ 3 TD/TT: Ethics Instructor: [facility] Radiology Study [...] 0.2 0.2 - 12 mg/dL [facility] US OB BPP W NON-STRESS on 09-05-2024 [place] [address] Ultrasound Report Signed Patient: ANNA LAW MR#: [id number] : 1990 Acct:[id number] Age/Sex: 34 / F ADM Date: 09/04/24 Loc: US Attending Dr: Lee Rand D.O. Ordering Physician: Lee Rand D.O. Date of Service: 09/04/24 Procedure(s): US OB BPP w non-stress Accession Number(s): [id number] cc: Lee Rand D.O.; Physician,Non-Staff [place] [address] Patient Name: ANNA LAW MRN: [facility]:[id number] date: 1990 Sex: F Assigned Patient Location: [facility] Current Patient Location: Accession/Order Number: [id number] Exam Date: 09/04/2024 18:52 Report Date: 09/05/2024 [...] Tiff Baumann M.D. Signed By: 09/05/24554 DD/ 2 TD/TT: Ethics Instructor: [facility] Radiology, Radiologist, - 09/05/2024 [place] [address] Ultrasound Report Signed Patient: ANNA LAW MR#: [id number] : 1990 Acct:[id number] Age/Sex: 34 / F ADM Date: 09/04/24 Loc: US Attending Dr: Lee Rand D.O. Ordering Physician: Lee Rand D.O. Date of Service: 09/04/24 Procedure(s): US OB BPP w non-stress Accession Number(s): [id number] cc: Lee Rand D.O.; Physician,Non-Staff [place] [address] [address] Patient Name: ANNA LAW MRN: [facility]:[id number] date: 1990 Sex: F Assigned Patient Location: [facility] Current Patient Location: Accession/Order Number: [id number] Exam Date: 09/04/2024 18:52 Report Date: 09/05/2024 [...] M.D. Signed By: 09/05/2455 DD/ 2 TD/TT: Ethics Instructor: [facility] Radiology Study [...] [facility] Protein, UA Trace Negative - 1999(20) ++++ mg/dL [facility] Spec Grav, UA 1.025 1 - 1.03 [facility] Urobilinogen, UA 1.0 0.2 - 12 mg/dL [facility] GLUCOSE TOLERANCE 3 HOURon 0 07-28-2024 GLUCOSE TOLERANCE 3 HOUR High mg/dL [facility] Comment on above: GLU FAST 87 (<95) Co l: 07/28/24 0638 GLU 1HR 199H (<180) Col: 07/28/24 0739 GLU 2HR 173H (<155) Col: 07/28/24 0839 GLU 3HR 94 (<140) Col: 07/28/24 0939 Interpretation and review of laboratory results Abnormal [facility] 1 HOURon 07-21-2024 Glucose [Mass/Vol] 154 mg/dL High NINF - 13 0 mg/dL [facility] Interpretation and review of laboratory results Abnormal [facility] Urinalysis macro (dipstick) panel (U)on 07-12-2024 Bilirubin, [...] 1.0 0.2 - 12 mg/dL [facility] AFP, SERUM, OPEN SPINA BIFID Aon 07-04-2024 AFP MOM 1.60 . [facility] AFP VALUE 91.9 ng/mL . [facility] COMMENT: Comment . [facility] Comment on above: Sonia Sullivan , Ph.D., [facility] Director References: Available Upon Request. Multiples Of Median Cutoffs For AFP Elevations Bhandari 2.5 Black 2.8 IDD 2.0 Twins 4.5 Abbreviation Definitions IDD - Insulin Dep Diabetes OSBR - Open Spina Bifida Risk For further inquiries contact [employer] at [phone]. This test was developed and its performance characteristics determined by [facility]. It has not been cleared or approved by the Food and Drug Administration. Performed at: [facility] [address] [place], [place] [address] Stem Teacher: [facility], Phone: [phone] GEST. AGE ON COLLECTION DATE 21.0 . [...] Customer Services to discuss available options. The [employer] recommends amniocentesis [...] [facility] N LMP [id number] 2 18 N 1 Y 177 N [...] Hospital TRICHOMONAS VAGINALIS Not detected [facility] Urinalysis macro (dipstick) panel (U)on 06-11-2024 [...] 1.0 0.2 - 12 mg/dL [facility] Urinalysis macro (dipstick) panel (U)on 05-08-2024 [...] 0.2 0.2 - 12 mg/dL [facility] ALL CBC WITH AUTO DIFFon BASOPHILS [...] # 0.1 [facility] TB PLT 219 [facility] RBC 3.97 Low [facility] WBC 8.1 [facility] HCG ( test) Ql (U)o n 04-05-2024 Interpretation and review of laboratory results Abnormal [facility] Preg Test, Ur Positive [facility] Urinalysis macro (dipstick) panel (U)on 04-05-2024 [...] 0.2 0.2 - 12 mg/dL [facility] CBC AUTO DIFFon 06-05-2022 BASO # 0.0 103/ul Normal 0.0-0.1 [facility] Comment on above: Performed By: #### C BC #### [facility] [address] [place] [address] Dr. Sandi Michelle Basophils/100 WBC (Bld) 0.2 % Normal 0.2-2.0 [facility] Comment on above: Performed By: #### C BC #### [facility] [address] [place] [address] [address] Sandi Michelle EO # 0.0 103/ul Normal 0.0-0.7 [facility] Comment on above: Performed By: #### C BC #### [facility] [address] [place] [address] Dr. Sandi Michelle Eosinophils/100 WBC (Bld) 0.2 % Critically low 0.9-7.0 [facility] Comment on above: Performed By: #### C BC #### [facility] [address] [place] [address] Dr. Sandi Michelle Erythrocyte distribution width (RBC) [Ratio] 14.3 % Normal 11.0-15.0 [facility] Comment on above: Performed By: #### C BC #### [facility] [address] [place] [address] Dr. Sandi Michelle Hematocrit (Bld) [Volume fraction] 27.3 % Critically low 36.0-48.0 [facility] Comment on above: Performed By: #### C BC #### [facility] [address] [place] [address] Dr. Sandi Michelle Hemoglobin (Bld) [Mass/Vol] 9.3 g/dL Critically low 12.0-16.0 [facility] Comment on above: Result Comment: DELI VERY Performed By: #### C BC #### [facility] [address] [place] [address] Dr. Sandi Michelle IG # 0.14 10e3/ul Critically high 0.00-0.03 [facility] Comment on above: Performed By: #### C BC #### [facility] [address] [place] [address] Dr. Sandi Michelle IG % 1.1 % Critically high 0.0-0.5 [facility] [place] Comment on above: Performed By: #### C BC #### [facility] [address] [place] [address] Dr. Sandi Michelle LYMPH # 1.6 103/ul Normal 1.2-3.8 [facility] Comment on above: Performed By: #### C BC #### [facility] [address] [place] [address] Dr. Sandi Michelle Lymphocytes/100 WBC (Bld) 12.1 % Critically low 20.5-60.0 [facility] Comment on above: Performed By: #### C BC #### [facility] [address] [place] [address] Dr. Sandi Michelle MANUAL DIFF REQ NO Normal [facility] [place] Comment on above: Performed By: #### C BC #### [facility] [address] [place] [address] Dr. Sandi Micehlle MCH (RBC) [Entitic mass] 31.8 pg Normal 26.7-34.0 [facility] Comment on above: Performed By: #### C BC #### [facility] [address] [place] [address] Dr. Sandi Michelle MCHC (RBC) [Mass/Vol] 34.1 g/dL Normal 29.9-35.2 [facility] Comment on above: Performed By: #### C BC #### [facility] [address] [place] [address] Dr. Sandi Michelle MCV (RBC) [Entitic vol] 93.5 fL Normal 81.0-99.0 [facility] Comment on above: Performed By: #### C BC #### [facility] [address] [place] [address] Dr. Sandi Michelle MONO # 0.9 103/ul Critically high 0.3-0.8 [facility] [place] Comment on above: Performed By: #### C BC #### [facility] [address] [place] [address] Dr. Sandi Michelle Monocytes/100 WBC (Bld) 6.8 % Normal 1.7-12.0 [facility] Comment on above: Performed By: #### C BC #### [facility] [address] [place] [address] Dr. Sandi Michelle NEUT # 10.3 103/ul Critically high 1.4-6.5 [facility] Comment on above: Performed By: #### C BC #### [facility] [address] [place] [address] Dr. Sandi Michelle Neutrophils/100 WBC (Bld) 79.6 % Critically high 43.0-75.0 [facility] Comment on above: Performed By: #### C BC #### [facility] [address] [place] [address] Dr. Sandi Michelle Platelet mean volume (Bld) [Entitic vol] 9.8 fL Normal 9.5-13.5 [facility] Comment on above: Performed By: #### C BC #### [facility] [address] [place] [address] Dr. Sandi Michelle PLT 138 103/ul Critically low 150-450 [facility] Comment on above: Performed By: #### C BC #### [facility] [address] [place] [address] Dr. Sandi Michelle RBC 2.92 106/ul Critically low 4.20-5.40 [facility] [place] Comment on above: Performed By: #### C BC #### [facility] [address] [place] [address] Dr. Sandi Michelle WBC 12.9 103/ul Critically high 4.0-11.0 [facility] Comment on above: Performed By: #### C BC #### [facility] [address] [place] [address] Dr. Sandi Michelle CBC AUTO DIFFon 06-04-2022 BASO # 0.0 103/ul Normal 0.0-0.1 [facility] Comment on above: Performed By: #### C BC #### [facility] [address] [place] [address] Dr. Sandi Michelle Basophils/100 WBC (Bld) 0.3 % Normal 0.2-2.0 [facility] Comment on above: Performed By: #### C BC #### [facility] [address] [place] [address] Dr. Sandi Michelle EO # 0.0 103/ul Normal 0.0-0.7 [facility] Comment on above: Performed By: #### C BC #### [facility] [address] [place] [address] Dr. Sandi Michelle Eosinophils/100 WBC (Bld) 0.1 % Critically low 0.9-7.0 [facility] Comment on above: Performed By: #### C BC #### [facility] [address] [place] [address] Dr. Sandi Michelle Erythrocyte distribution width (RBC) [Ratio] 14.4 % Normal 11.0-15.0 [facility] Comment on above: Performed By: #### C BC #### [facility] [address] [place] [address] Dr. Sandi Michelle Hematocrit (Bld) [Volume fraction] 37.2 % Normal 36.0-48.0 [facility] Comment on above: Performed By: #### C BC #### [facility] [address] [place] [address] Dr. Sandi Michelle Hemoglobin (Bld) [Mass/Vol] 12.9 g/dL Normal 12.0-16.0 [facility] Comment on above: Performed By: #### C BC #### [facility] [address] [place] [address] Dr. Sandi Michelle IG # 0.23 10e3/ul Critically high 0.00-0.03 [facility] Comment on above: Performed By: #### C BC #### [facility] [address] [place] [address] Dr. Sandi Michelle IG % 1.6 % Critically high 0.0-0.5 [facility] [place] Comment on above: Performed By: #### C BC #### [facility] [address] [place] [address] Dr. Sandi Michelle LYMPH # 2.3 103/ul Normal 1.2-3.8 [facility] Comment on above: Performed By: #### C BC #### [facility] [address] [place] [address] Dr. Sandi Michelle Lymphocytes/100 WBC (Bld) 16.0 % Critically low 20.5-60.0 [facility] Comment on above: Performed By: #### C BC #### [facility] [address] [place] [address] Dr. Sandi Michelle MANUAL DIFF REQ NO Normal [facility] Comment on above: Performed By: #### C BC #### [facility] [address] [place] [address] Dr. Sandi Michelle MCH (RBC) [Entitic mass] 32.3 pg Normal 26.7-34.0 [facility] Comment on above: Performed By: #### C BC #### [facility] [address] [place] [address] Dr. Sandi Michelle MCHC (RBC) [Mass/Vol] 34.7 g/dL Normal 29.9-35.2 [facility] Comment on above: Performed By: #### C BC #### [facility] [address] [place] [address] Dr. Sandi Michelle MCV (RBC) [Entitic vol] 93.0 fL Normal 81.0-99.0 [facility] Comment on above: Performed By: #### C BC #### [facility] [address] [place] [address] Dr. Sandi Michelle MONO # 0.8 103/ul Normal 0.3-0.8 [facility] Comment on above: Performed By: #### C BC #### [facility] [address] [place] [address] Dr. Sandi Michelle Monocytes/100 WBC (Bld) 5.8 % Normal 1.7-12.0 [facility] Comment on above: Performed By: #### C BC #### [facility] [address] [place] [address] Dr. Sandi Michelle NEUT # 10.7 103/ul Critically high 1.4-6.5 [facility] Comment on above: Performed By: #### C BC #### [facility] [address] [place] [address] [address] Sandi Michelle Neutrophils/100 WBC (Bld) 76.2 % Critically high 43.0-75.0 [facility] Comment on above: Performed By: #### C BC #### [facility] [address] [place] [address] [address] Sandi Michelle Platelet mean volume (Bld) [Entitic vol] 10.9 fL Normal 9.5-13.5 [facility] Comment on above: Performed By: #### C BC #### [facility] [address] [place] [address] Dr. Sandi Michelle PLT 194 103/ul Normal 150-450 [facility] Comment on above: Performed By: #### C BC #### [facility] [address] [place] [address] Dr. Sandi Michelle RBC 4.00 106/ul Critically low 4.20-5.40 [facility] [facility] Comment on above: Performed By: #### C BC #### [facility] [address] [place] [address] Dr. Sandi Michelle WBC 14.0 103/ul Critically high 4.0-11.0 [facility] Comment on above: Performed By: #### C BC #### [facility] [address] [place] [address] Dr. Sandi Michelle Covid-19 PCR ([facility])on 05-25 SARS-CoV-2 (COVID-19) RNA ALETHEA+probe Ql (Unsp spec) Not detected Normal NOT DETECTED [facility] Comment on above: Result Comment: [...] for this test is supported by the [place] of Health and Human Service's declaration that [...] be used). Performed By: #### C VDTBH ####[facility] Zit[address] [place], [place] [address]Dr. Sandi Michelle DRUG SCREEN RAPID (URINE)on 06-04-2022 AMP Negative Normal NEGATIVE The [facility] Comment on above: Performed By: #### D RUGRPD ####[facility] C[address] [place], [place] [address]Dr. Sandi Michelle BAR Negative Normal NEGATIVE The [facility] Comment on above: Performed By: #### D RUGRPD ####[facility] C[address] [place], [place] [address]Dr. Sanjuanitasonia [facility] BUP Negative Normal NEGATIVE The [facility] Comment on above: Performed By: #### D RUGRPD ####[facility] V[address] [place], [place] [address]Dr. Sandi Michelle BZO Negative Normal NEGATIVE The [facility] Comment on above: Performed By: #### D RUGRPD ####[facility] J[address] [place], [place] [address]Dr. Sandi [facility] NINO Negative Normal NEGATIVE The [facility] Comment on above: Performed By: #### D RUGRPD ####[facility] [address] [place], [place] [address]Dr. [facility] CUT-OFFS SEE BELOW Normal The [facility] Comment on above: Result Comment: [...] 300 ng/mL Performed By: #### D RUGRPD ####[facility] E[address] [place], [place] [address]Dr. Sandi Michelle DRUG CUT HEADER DRUG CLASS TEST SYSTEM CUT-OFF CONCENTRATIONS ARE FOLLOWS: Normal The [facility] Comment on above: Performed By: #### D RUGRPD ####[facility] [address] [place], [place] [address]Dr. Sandi Michelle mAMP Negative Normal NEGATIVE The [facility] Comment on above: Performed By: #### D RUGRPD ####[facility] [address] [place], [place] [address]Dr. Sandi Michelle MTD Negative Normal NEGATIVE The [facility] Comment on above: Performed By: #### D RUGRPD ####[facility] [address] [place], [place] [address]Dr. Sandi Michelle OPI Negative Normal NEGATIVE The [facility] Comment on above: Performed By: #### D RUGRPD ####[facility] [address] [place], [place] [address]Dr. Sandi Michelle OXY Negative Normal NEGATIVE The [facility] Comment on above: Performed By: #### D RUGRPD ####[facility] [address] [place], [place] [address]Dr. Sandi Michelle PCP Negative Normal NEGATIVE The [facility] Comment on above: Performed By: #### D RUGRPD ####[facility] [address] [place], [place] [address]Dr. Sandi Michelle PPX Negative Normal NEGATIVE The [facility] Comment on above: Performed By: #### D RUGRPD ####[facility] C[address] [place], [place] [address]Dr. Sandi Michelle TCA Negative Normal NEGATIVE The [facility] Comment on above: Performed By: #### D RUGRPD ####[facility] [address] [place] [id number]. Sandi Michelle THC Negative Normal NEGATIVE The [facility] Comment on above: Performed By: #### D RUGRPD ####[facility] [address] [place], [place] [address]Dr. Sandi Michelle TYPE AND SCREENon 06-04-2022 TYPE AND SCREEN Negative Normal [facility] [place] Comment on above: Performed By: #### T NS ####[facility] Qf[address]zc[address] [place], [place] [address]Dr. Sandi Michelle US PREG BIOPHY W NON [...] RIGO FISCHER Date: 2022-05-30 08:30 Normal The [facility] GROUP B STREP CULTUREon S. agalactiae Ag Ql (Unsp spec) Culture Observations: NEGATIVE FOR GROUP B STREPTOCOCCUS. Normal [facility] Comment on above: Performed By: #### G BSCX ####[facility] [address] [place], [place] [address]Dr. Sandi Michelle US PREG BIOPHY W NON [...] by: RIGO FISCHER Date: 2022-05-23 09:41 Normal [facility] US PREG BIOPHY W NON STRESSo [...] by: RIGO FISCHER Date: 2022-05-16 16:10 Normal [facility] US PREG GROWTHon 05-11-2022 US PREG GROWTH EXAMINATION: US PREG GROWTH, US PREG CERVICAL LENGTH HISTORY: Excessive growth affecting management of mother COMPARISON: Ultrasound growth 04/27/2022 FINDINGS: Heart Rate: 137.8 bpm (accession [id number]), 167.3 bpm (accession [id number]) Number: 1.0 Position: BREECH Amniotic Fluid Volume: [...] TIFF BAUMANN Date: 2022-05-11 19:19 Normal [facility] US PREG GROWTHon 04-27-2022 US [...] TIFF BAUMANN Date: 2022-04-27 20:51 Normal [facility] GLUCOSE - 1HRon 03-15-2022 Glucose [Mass/Vol] 137 mg/dL Critically high 74-106 T [facility] Comment on above: Performed By: #### C BC #### [facility] [address] [place] [address] Dr. Sandi Michelle HEMOGRAM AND PLATELon 2021 Hematocrit (Bld) [Volume fraction] 34.9 % Critically low 36.0-48.0 [facility] Comment on above: Performed By: #### C BC #### [facility] [address] [place] [address] Dr. Sandi Michelle Hemoglobin (Bld) [Mass/Vol] 11.5 g/dL Critically low 12.0-16.0 [facility] Comment on above: Performed By: #### C BC #### [facility] [address] [place] [address] Dr. Sandi Michelle MCH (RBC) [Entitic mass] 31.8 pg Normal 26.7-34.0 [facility] Comment on above: Performed By: #### C BC #### [facility] [address] [place] [address] Dr. Sandi Michelle MCHC (RBC) [Mass/Vol] 33.0 g/dL Normal 29.9-35.2 [facility] Comment on above: Performed By: #### C BC #### [facility] [address] [place] [address] Dr. Sandi Michelle MCV (RBC) [Entitic vol] 96.4 fL Normal 81.0-99.0 [facility] Comment on above: Performed By: #### C BC #### [facility] [address] [place] [address] Dr. Sandi Michelle PLT 225 103/ul Normal 150-450 [facility] Comment on above: Performed By: #### C BC #### [facility] [address] [place] [address] Dr. Sandi Michelle RBC 3.62 106/ul Critically low 4.20-5.40 [facility] [place] Comment on above: Performed By: #### C BC #### [facility] [address] [place] [address] Dr. Sandi Michelle WBC 12.9 103/ul Critically high 4.0-11.0 [facility] Comment on above: Performed By: #### C BC #### [facility] [address] [place] [address] Dr. Sandi Michelle CHLAMYDIA/GONOCOCCUS ALETHEA ( AB/URINE/PAPon 02-04-2022 Chlamydia trachomatis, ALETHEA Negative Normal Negative The [facility] Comment on above: Performed By: #### C T/NGNA #### [facility] [address] [place] [address] Dr. Sandi Michelle Neisseria gonorrhoeae, ALETHEA Negative Normal Negative [facility] Comment on above: Performed By: #### C T/NGNA #### [facility] [address] [place] [address] Dr. Sandi Michelle PAP ACOG PANEL 2: 30 to 65on 02-04-2022 . . Normal [facility] Comment on above: Result Comment: Perf ormed at: WB Performed By: #### [id number] ####[facility] [address] [place] [address]DrDen Michelle Age Gdln ACOG Testing 30-65 Normal [facility] Comment on above: Performed By: #### 4 [id number] ####[facility] [address] [place] [address]DrDen Michelle DIAGNOSIS: Comment Normal [facility] Comment on above: Result Comment: NEGA TIVE FOR INTRAEPITHELIAL LESION OR MALIGNANCY. Performed at: WB Performed By: #### 4 [id number] ####[facility] [address] [place] [address]DrDen Michelle HPV Aptima Negative Normal Negative [facility] Comment on above: Result Comment: This nucleic acid amplification test detects fourteen high-risk HPV types (16,18,31,33,35,39,45,51,52,56,58,59,66,68) without differentiation. Performed at: =G Performed By: #### 4 [id number] ####[facility] [address] [place], [place] [address]DrDen Michelle Methodology: Comment Normal [facility] Comment on above: Result Comment: This liquid based ThinPrep(R) pap test was screened with the use of an image guided system. Performed at: WB Performed By: #### 4 [id number] ####[facility] [address] [place] [address]DrDen Michelle Note: Comment Normal [facility] Comment on above: Result Comment: The Pap smear is a screening test designed to aid in the detection of premalignant and malignant conditions of the uterine cervix. It is not a diagnostic procedure and should not be used as the sole means of detecting cervical cancer. Both false-positive and false-negative reports do occur. . Performed at: WB Performed By: #### 4 [id number] ####[facility] [address] [place] [address]DrDen Michelle Performed by: Comment Normal The [facility] Comment on above: Result Comment: Vikas Mcclellan, Supervisor Pipelines (ASCP) Performed at: WB Performed By: #### 4 [id number] ####[facility] [address] [place] [address]Dr. Sandi Michelle Specimen adequacy: Comment Normal The [facility] Comment on above: Result Comment: Sati sfactory for evaluation. No endocervical component is identified. Performed at: WB Performed By: #### 4 [id number] ####[facility] [address] [place] [id number]. Sandi Michelle VAGINITIS/VAGINOSIS DNA PROB Nicholas 02-03-2022 Kaitlynn species Negative Normal Negative [facility] [place] Comment on above: Performed By: #### V AGINT ####[facility] [address] [place] [address]Dr. Sandi Michelle Gardnerella vaginalis Negative Normal Negative [facility] Comment on above: Performed By: #### V AGINT ####[facility] [address] [place] [address]Dr. Sandi Michelle Trichomonas vaginalis Negative Normal Negative [facility] Comment on above: Performed By: #### V AGINT ####[facility] [address] [place] [address]Dr. Sandi Michelle US PREG ANATOMY SINGLEon US [...] RIGO FISCHER Date: 2022-02-01 19:32 Normal [facility] AFP MATERNAL FOR SPINA BIFID Aon 01-21-2022 AFP MoM 1.24 Normal [facility] Comment on above: Performed By: #### A FPMAT ####[facility] [address] [place] [address]Dr. Sandi [facility] AFP Value 55.2 ng/mL Normal [facility] Comment on above: Performed By: #### A FPMAT ####[facility] [address] [place] [id number]. Sandi Michelle AFP, Serum for Spina Bifida Report Normal [facility] Comment on above: Performed By: #### A FPMAT ####[facility] [address] [place] [address]Dr. Sandi Michelle Comment Comment Normal [facility] Comment on above: Result Comment: Iesha Sullivan, Ph.D., [facility] Director . References: Available Upon Request. . Multiples Of Median Cutoffs For AFP Elevations Bhandari 2.5 Black 2.8 IDD 2.0 Twins 4.5 Abbreviation Definitions IDD - Insulin Dep Diabetes OSBR - Open Spina Bifida Risk . For further inquiries contact [employer] at [phone]. . This test was developed and its performance characteristics determined by [facility]. It has not been cleared or approved by the Food and Drug Administration. Performed By: #### A FPMAT ####[facility] [address] [place] [id number]. Sanid Michelle Gest Age Collection Date 18.1 weeks Normal [facility] Comment on above: Performed By: #### A FPMAT ####[facility] [address] [place] [id number]. Sandi Michelle Gestat, Age Based on JOSE [facility] Comment on above: Result Comment: 05/26 Recalculations are not recommended when gestational dating by LMP and ultrasound are within 10 days. Performed By: #### A FPMAT ####[facility] [address] [place] [id number]. Sanjuanitasonia Michelle Insulin Dep Diabetes Comment Normal [facility] Comment on above: Result Comment: Not provided. . Performed By: #### A FPMAT ####[facility] [address] [place] [id number]. Sanjuanitasonia Michelle Interpretation Comment Normal [facility] Comment on above: Result Comment: [...] Customer Services to discuss available options. The [place] [employer] recommends amniocentesis be offered to women age 35 and older. Performed By: #### A FPMAT ####[facility] [address] [place] [id number]. Sanjuanitasonia Michelle [age] Normal [facility] Comment on above: Performed By: #### A FPMAT ####[facility] [address] [place], [place] [address]Au. Sandi Michelle Multiple Gestation No Normal [facility] [place] [facility] Comment on above: Performed By: #### A FPMAT ####[facility] [address] [place] [id number]. Sandi Michelle OSBR Risk 1 IN 5748 Normal [facility] Comment on above: Performed By: #### A FPMAT ####[facility] [address] [place] [id number]. Sandi Michelle PDF . Normal [facility] Comment on above: Performed By: #### A FPMAT ####[facility] [address] [place] [address]Dr. Sandi Michelle Race Normal [facility] Comment on above: Performed By: #### A FPMAT ####[facility] [address] [place] [address]DrDen Michelle Test Results: Negative Normal [facility] Comment on above: Performed By: #### A FPMAT ####[facility] [address] [place] [address]DrDen Michelle HEP B SURFACE ANTIGEN SCREEN on 11-22-2021 HBsAg Screen Negative Normal Negative [facility] Comment on above: Performed By: #### H BSANS ####[facility] [address] [place] [address]DrDen Michelle HEPATITIS C VIRUS AB W/ REFL EX QUANTon 11-22-2021 HCV AB 0.1 s/co ratio Normal 0.0-0.9 [facility] Comment on above: Performed By: #### C BC #### [facility] [address] [address] [address] Sandi Michelle Interpretation: Comment Normal [facility] Comment on above: Result Comment: Nega tive Not infected with HCV, unless recent infection is suspected or other evidence exists to indicate HCV infection. Performed By: #### C BC #### [facility] [address] [place] [address] Dr. Sandi Michelle HIV 1 AND 2 WITH REFLEXon HIV Screen 4th Generation wRfx Non-Reactive Normal Non Reactive [facility] Comment on above: Result Comment: HIV Negative HIV-1/HIV-2 antibodies and HIV-1 p24 antigen were NOT detected. There is no laboratory evidence of HIV infection. Performed By: #### H IV12 ####[facility] [address] [place] [address]Dr. Sandi Michelle RPR QUANTon 11-22-2021 Rapid Plasma Reagin, Quant Non-Reactive Normal NonRea<1:1 [facility] Comment on above: Result Comment: Plea se Note: This test does not meet current guidelines for screening and diagnosis of syphilis. This test is intended for following treatment response in patients being treated for syphilis infection. To screen for syphilis infection, a reflex cascade that includes both RPR and a treponema-specific assay should be utilized, such as Treponema pallidum (Syphilis) Screening [place] (812939) or Rapid Plasma Reagin (RPR) Test With Reflex to Quantitative RPR and Confirmatory Treponema pallidum Antibodies (876513). Performed By: #### C BC #### [facility] [address] [place] [address] Dr. Sandi Michelle RUBELLA AB IGGon 11-22-2021 Rubella Antibodies, IgG 9.33 index Normal Immune >0.99 [facility] Comment on above: Result Comment: Non- immune <0.90 Equivocal 0.90 - 0.99 Immune >0.99 Performed By: #### C BC #### [facility] [address] [place] [address] Dr. Sandi Michelle CBC AUTO DIFFon 11-21-2021 BASO # 0.0 103/ul Normal 0.0-0.1 [facility] Comment on above: Performed By: #### C BC #### [facility] [address] [place] [address] Dr. Sandi Michelle Basophils/100 WBC (Bld) 0.4 % Normal 0.2-2.0 [facility] Comment on above: Performed By: #### C BC #### [facility] [address] [place] [address] Dr. Sandi Michelle EO # 0.1 103/ul Normal 0.0-0.7 [facility] Comment on above: Performed By: #### C BC #### [facility] [address] [place] [address] Dr. Sandi Michelle Eosinophils/100 WBC (Bld) 0.6 % Critically low 0.9-7.0 [facility] Comment on above: Performed By: #### C BC #### [facility] [address] [place] [address] Dr. Sandi Michelle Erythrocyte distribution width (RBC) [Ratio] 11.9 % Normal 11.0-15.0 [facility] Comment on above: Performed By: #### C BC #### [facility] [address] [place] [address] Dr. Sandi Michelle Hematocrit (Bld) [Volume fraction] 37.1 % Normal 36.0-48.0 [facility] Comment on above: Performed By: #### C BC #### [facility] [address] [place] [address] Dr. Sandi Michelle Hemoglobin (Bld) [Mass/Vol] 12.2 g/dL Normal 12.0-16.0 [facility] Comment on above: Performed By: #### C BC #### [facility] [address] [place] [address] Dr. Sandi Michelle IG # 0.03 10e3/ul Normal 0.00-0.03 [facility] Comment on above: Performed By: #### C BC #### [facility] [address] [place] [address] Dr. Sandi Michelle IG % 0.4 % Normal 0.0-0.5 [facility] Comment on above: Performed By: #### C BC #### [facility] [address] [place] [address] Dr. Sandi Michelle LYMPH # 1.8 103/ul Normal 1.2-3.8 [facility] Comment on above: Performed By: #### C BC #### [facility] [address] [place] [address] Dr. Sandi Michelle Lymphocytes/100 WBC (Bld) 23.4 % Normal 20.5-60.0 [facility] Comment on above: Performed By: #### C BC #### [facility] [address] [place] [address] Dr. Sandi Michelle MANUAL DIFF REQ NO Normal [facility] [place] Comment on above: Performed By: #### C BC #### [facility] [address] [place] [address] Dr. Sandi Michelle MCH (RBC) [Entitic mass] 31.4 pg Normal 26.7-34.0 [facility] Comment on above: Performed By: #### C BC #### [facility] [address] [place] [address] Dr. Sandi Michelle MCHC (RBC) [Mass/Vol] 32.9 g/dL Normal 29.9-35.2 [facility] Comment on above: Performed By: #### C BC #### [facility] [address] [place] [address] Dr. Sandi Michelle MCV (RBC) [Entitic vol] 95.6 fL Normal 81.0-99.0 [facility] Comment on above: Performed By: #### C BC #### [facility] [address] [place] [address] Dr. Sandi Michelle MONO # 0.5 103/ul Normal 0.3-0.8 [facility] Comment on above: Performed By: #### C BC #### [facility] [address] [place] [address] Dr. Sandi Michelle Monocytes/100 WBC (Bld) 6.6 % Normal 1.7-12.0 [facility] Comment on above: Performed By: #### C BC #### [facility] [address] [place] [address] Dr. Sandi Michelle NEUT # 5.4 103/ul Normal 1.4-6.5 [facility] Comment on above: Performed By: #### C BC #### [facility] [address] [place] [address] Dr. Sandi Michelle Neutrophils/100 WBC (Bld) 68.6 % Normal 43.0-75.0 [facility] Comment on above: Performed By: #### C BC #### [facility] [address] [place] [address] Dr. Sandi Michelle Platelet mean volume (Bld) [Entitic vol] 10.1 fL Normal 9.5-13.5 [facility] Comment on above: Performed By: #### C BC #### [facility] [address] [address] [address] Sandi Michelle PLT 237 103/ul Normal 150-450 [facility] Comment on above: Performed By: #### C BC #### [facility] [address] [address] [address] Sandi Michelle RBC 3.88 106/ul Critically low 4.20-5.40 [facility] [place] Comment on above: Performed By: #### C BC #### [facility] [address] [address] [address] Sandi Michelle WBC 7.9 103/ul Normal 4.0-11.0 [facility] Comment on above: Performed By: #### C BC #### [facility] [address] [address] [address] Sandi Michelle CULTURE URINEon 11-21-2021 CULTURE URINE Culture Observations : LIGHT GROWTH OF MIXED GENITAL MENDEZ. NO POTENTIAL PATHOGENS SEEN. Normal [facility] Comment on above: Performed By: #### U RCX #### [facility] [address] [address] [address] Sandi Michelle GLYCOHEMOGLOBIN A1Con 2021 ADA RECOMMENDATION SEE BELOW Normal [facility] [place] [facility] Comment on above: Result Comment: ADA RECOMMENDED LIMIT 4.0 - 6.0 ADA THERAPEUTIC TARGET < 7.0 ACTION SUGGESTED > 7.0 Performed By: #### A 1C ####[facility] [address] [address] Sandi Michelle Glucose [Mass/Vol] 103 mg/dL Normal [facility] Comment on above: Performed By: #### A 1C ####[facility] [address] [id number]. Sandi Michelle HbA1c (Bld) [Mass fraction] 5.2 % Normal 4.5-6.2 [facility] Comment on above: Performed By: #### A 1C ####[facility] [address] [place], [place] [address]MiDr. Sandi Michelle TYPE AND SCREENon 11-21-2021 TYPE AND SCREEN Negative Normal [facility] Comment on above: Performed By: #### T NS #### [facility] [address] [address] [address] Sandi Michelle US PREG TVon 11-03-2021 [...] TIFF BAUMANN Date: 2021-11-03 07:19 Normal [facility] PREG QUANT HCGon 10-14-2021 HCG QUANT 469 mIU/mL Normal [facility] Comment on above: Performed By: #### P REGQNT #### [facility] [address] [place] [address] Dr. Sandi Michelle HCG RANGE SEE BELOW Normal [facility] Comment on above: Result Comment: 5-50 0-1 WEEK 40-300 1-2 WEEKS 100-1,000 2-3 WEEKS 500-6,000 3-4 WEEKS 5,000-200,000 1-2 MONTHS 10,000-100,000 2-3 MONTHS 3,000-50,000 2ND TRIMESTER 1,000-50,000 3RD TRIMESTER Performed By: #### P REGQNT #### [facility] [id number] Sandi Michelle PREG QUANT HCGon 10-12-2021 HCG QUANT 184 mIU/mL Normal [facility] Comment on above: Performed By: #### C BC #### [facility] [address] [place], [place] [address] Dr. Sandi Michelle HCG RANGE SEE BELOW Normal [facility] Comment on above: Result Comment: 5-50 0-1 WEEK 40-300 1-2 WEEKS 100-1,000 2-3 WEEKS 500-6,000 3-4 WEEKS 5,000-200,000 1-2 MONTHS 10,000-100,000 2-3 MONTHS 3,000-50,000 2ND TRIMESTER 1,000-50,000 3RD TRIMESTER Performed By: #### C BC #### [facility] [address] [place], [place] [address] Dr. Sandi Michelle PROTEIN C FUNC ACTIVITYon Prt C Activity (Chromogenic) 130 % Normal [facility] Comment on above: Result Comment: Refe rence Range: 17 years and older: 73 - 180 Effective August 10, 2021 Prt C Activity, (Chromogenic) will be made non-orderable. This will not affect any profile that includes Prt C Activity (Chromogenic). [employer] offers 349349 Protein C Functional. For more information please contact your local [facility] Inside Sales Engineer. Performed By: #### P RCACT ####[facility] [address] [place], [place] [address]GsDr. Sandi Michelle FACTOR V LEIDEN MUTATION CIARAN LYSISon 07-27-2021 Factor V Leiden Comment Normal The [facility] [place] Comment on above: Result Comment: Resu lt: c.1601G>A (p.[id number]) - Not Detected . This result is not associated with an increased risk for venous thromboembolism. See Additional Clinical Information and Comments. Additional Clinical Information: Venous thromboembolism is a multifactorial disease influenced by genetic, environmental, and circumstantial risk factors. The c.1601G>A (p. Ins596Jdh) variant in the F5 gene, commonly referred [...] c.*97G>A variant and Factor V Leiden (PMID: 81069319). Additional risk factors include but are not [...] health care providers to discuss results at [phone]). . Test Details: Variant Analyzed: c.1601G>A (p. Wnp077Ctx), referred to as Factor V Leiden . [...] developed and its performance characteristics determined by [facility]. It has not been cleared or approved by the Food and Drug Administration. . References: Masoud S, Hawa AK, Randy R, Moses WW, Luis A JH; ACMG Professional Practice and Guidelines Committee. Addendum: [place] [employer] consensus statement on factor V Leiden mutation testing. [place] [facility]. 2020Sep 26. doi: 10.1038/d64440-568-62550-m. PMID: 95034745. . Miriam GAMING. Factor V Leiden Thrombophilia. 1998December 05 [Updated 2017Jul 28]. In: Jv MP, Delia HH, Pagon RA, et al., editors. Jovita(Wale) [Internet]. [place]): [facility], [place]; 4731-6363. Available from: https://www.ncbi.nlm.nih.gov/books/UZX2047/ . Jonh S, Hawa AK, Francisco Javier X, Leobardo B, Ash EB, Deysi P, Mari CS; [facility] Laboratory Process Improvement Manager Committee. Venous thromboembolism laboratory testing (factor V Leiden and factor II c.*97G>A), 2018 update: a technical standard of the [place] [employer] and Genomics (ACMG). [place] [facility]. 2018 Jun;20(12):1379-1792. doi: 10.1038/n96374-425-8749-a. Epub 2017Apr 28. PMID: 92936897. . Martha Guillen, PhD, FAC Lindsay Jaquez, PhD, FACMG Pete Brown, PhD, FAC Geronimo Mcdaniel, PhD, FAC W Khushbu Hays, PhD, FAC Maureen Mancilla, PhD, [facility] Performed By: #### F VPCR ####[facility] [address] [address]Dr. Sandi Michelle ANTITHROMBIN ACTIVITYon Antithrombin Activity 102 % Normal 75-135 [facility] Comment on above: Result Comment: Dire ct Xa inhibitor anticoagulants such as rivaroxaban, apixaban and edoxaban will lead to spuriously elevated antithrombin activity levels possibly masking a deficiency. Performed By: #### C BC #### [facility] [address] [address] [address] Sandi Michelle B-2 GLYCOPROTEIN AB IGGon Beta-2 Glycoprotein I Ab, IgG <9 Normal 0-20 [facility] Comment on above: Result Comment: The reference interval reflects a 3SD or 99th percentile interval, which is thought to represent a potentially clinically significant result in accordance with the International Consensus Statement on the classification criteria for definitive antiphospholipid syndrome (APS). J Thromb Haem 2006;4:295-306. Performed By: #### B 2GPG ####[facility] [address] [address]Dr. Sandi Michelle B2-GLYCOPROTEIN 1 AB IGMon 0 07-25-2021 Beta-2 Glycoprotein I Ab, IgM <9 Normal 0-32 [facility] Comment on above: Result Comment: The reference interval reflects a 3SD or 99th percentile interval, which is thought to represent a potentially clinically significant result in accordance with the International Consensus Statement on the classification criteria for definitive antiphospholipid syndrome (APS). J Thromb Haem 2006;4:295-306. Performed By: #### B GLYIGM ####[facility] [address] [place], [place] [address]Dr. Sandi Michelle LUPUS ANTICOAGULANT W/REFLEX on 07-24-2021 aPTT Coag (Bld) [Time] 30.9 s Normal 0.0-51.9 [facility] Comment on above: Performed By: #### L UPUSRF ####[facility] [address] [place], [place] [address]Dr. Sandi Michelle dRVVT 33.0 sec Normal 0.0-47.0 [facility] Comment on above: Performed By: #### L UPUSRF ####[facility] [address] [place], [place] [address]Dr. Sandi Michelle Interpretation Comment: Normal [facility] Comment on above: Result Comment: No l upus anticoagulant was detected. Performed By: #### L UPUSRF ####[facility] [address] [place], [place] [address]Dr. Sandi Michelle PROTEIN S ANTIGENon 07-24-20 21 Protein S, Free 104 % Normal 61-136 [facility] Comment on above: Performed By: #### P RTSAG ####[facility] [address] [address]Dr. Sandi Michelle Protein S, Total 90 % Normal 60-150 [facility] Comment on above: Result Comment: This test was developed and its performance characteristics determined by [facility]. It has not been cleared or approved by the Food and Drug Administration. Performed By: #### P RTSAG ####[facility] [address] [place], [place] [address]Dr. Sandi Michelle PROTEIN S, FUNCTIONALon 12-3 Protein S-Functional 107 % Normal 63-140 [facility] Comment on above: Result Comment: Prot ein S activity may be falsely increased (masking an abnormal, low result) in patients receiving direct Xa inhibitor (e.g., rivaroxaban, apixaban, edoxaban) or a direct thrombin inhibitor (e.g., dabigatran) anticoagulant treatment due to assay interference by these drugs. Performed By: #### C BC #### [facility] [address] [address] [address] Sandi Michelle ANTICARDIOLIPIN AB (JEANIE) IGG on 07-23-2021 Anticardiolipin Ab,IgG,Qn <9 Normal 0-14 [facility] Comment on above: Result Comment: Nega tive: <15 Indeterminate: 15 - 20 Low-Med Positive: >20 - 80 High Positive: >80 Performed By: #### C ARDLIP #### [facility] [address] [address] [address] Sandi Michelle ANTICARDIOLIPIN AB (JEANIE) IGM on 07-23-2021 Anticardiolipin Ab,IgM,Qn 12 MPL U/mL Normal 0-12 [facility] Comment on above: Result Comment: Nega tive: <13 Indeterminate: 13 - 20 Low-Med Positive: >20 - 80 High Positive: >80 Performed By: #### C ARDIGM ####[facility] [address] [address]Dr. Sandi Michelle Vital Signs Date Time Vital Sign Value Performing Clinician Facility 09-26-2024 11:02-0500 Body mass index (BMI) [Ratio] 30.63 kg/m2 [employer] DO Work Phone: [facility] 09-26-2024 11:02-0500 Body weight 86.09 kg [facility] Work Phone: [facility] 09-26-2024 11:02-0500 Diastolic blood pressure 76 mm[Hg] [employer] Work Phone: [facility] 09-26-2024 11:02-0500 Systolic blood pressure 116 mm[Hg] Lee Keyona DO Work Phone: [facility] 09-12-2024 14:53-0500 Body mass index (BMI) [Ratio] [...] Hospital 04-05-2024 14:24040 Body weight 78.02 kg [facility] Nurse [facility] 04-05-2024 14:240400 Diastolic blood pressure 68 mm[Hg] [facility] 04-05-2024 14:040 Systolic blood pressure 118 mm[Hg] [facility] 01-21-2022 03:06040 Body weight 72.[address] LEE RAND [facility] Comment on above: Performed By: #### A FPMAT ####[facility] [address] [place], [place] [address]cDr. Sandi Michelle Encounters Encounter Date Encounter Type Care Provider Facility Start: 09-26-2024 End: 09-26-2024 Bamboo flowsheet Lee Keyona DO Work Phone: [facility] Start: 09-26-2024 End: 09-26-2024 Bamboo flowsheet Lee Keyona DO Work Phone: [facility] Start: 09-26-2024 End: 09-26-2024 flow sheet Lee Keyona DO Work Phone: [facility] Comment on above: Third trimester preg jaye; 33 weeks gestation of Start: 09-26-2024 End: 09-26-2024 ambulatory LEE KEYONA Not Available Start: 09-25-2024 End: 09-25-2024 Clinisync Result Encounter Lee Keyona DO Work Phone: [facility] Unsolicited Start: 09-25-2024 End: 09-25-2024 [...] sheet Lee Keyona DO Work Phone: [facility] Comment on above: Second trimester pre [...] Encounter Lee Keyona DO Work Phone: [facility] External Department Unsolicited Start: 07-12-2024 End: 07-12-2024 Bamboo flowsheet Lee Keyona DO Work Phone: [facility] Start: 07-12-2024 End: 07-12-2024 Bamboo flowsheet Lee Keyona DO Work Phone: [facility] Start: 07-12-2024 End: 07-12-2024 flow sheet Lee Keyona DO Work Phone: [facility] OB Comment on above: Second trimester [...] Start: 03-15-2022 End: 03-16-[address] LEE RNAD Facility:[facility] Start: 02-02-2022 End: 02-02-[address] [...] Lee Keyona DO Work Phone: Start: 09-18-2024 OB BPP W NON-STRESS Lee Keyona DO Work Phone: Start: 09-12-2024 Urnls dip stick/tabl et rgnt non-auto w/o micrscp Lee Keyona DO Work Phone: Start: 09-12-2024 US OB BPP W NON-STRESS Lee Keyona DO Work Phone: Start: 09-05-2024 OB BPP W NON-STRESS Lee Keyona DO [...] Routine [facility] [address] [place] [address] Lee Rand, DO [address] [place] [address] [facility] Start: 09-26-2024 End: 09-26-2024 Patient encounter procedure [facility] Comment on above: Arrived Start: 09-12-2024 End: 09-12-2024 Patient encounter procedure 09/12/2024 2:30 PM EST Routine [facility] [address] [place] [address] Lee Rand, DO [address] [place], [place] [id number] [facility] Start: 08-29-2024 End: 08-29-2024 Patient encounter procedure [facility] Comment on above: Arrived Start: 08-29-2024 End: 08-29-2025 US biophysical profile w non stress test US biophysical profile w non stress test Imaging Routine Diet controlled gestational diabetes mellitus (GDM) in third trimester Expected: 08/29/2024 (Approximate), Expires: 08/29/2025 [facility] Work Phone: Comment on above: Expected: 08/29/2024 (Approximate), Expires: 08/29/2025 Start: 08-09-2024 End: 08-09-2024 Patient encounter procedure 08/09/2024 9:10 AM EST Routine [facility] [address] [place] [address] Lee Rand, DO [address] [place] [address] [facility] Start: 07-31-2024 End: 07-31-2024 Patient encounter procedure 07/31/2024 1:00 PM EST Office Visit [facility] [address] [place] [address] Lee Rand, DO [address] [place] [address] [facility] Start: 07-12-2024 End: 07-12-2025 CBC panel - Blood by Automated count CBC Lab Routine Diabetes mellitus screening Expected: 07/12/2024 (Approximate), Expires: 07/12/2025 [facility] Work Phone: Comment on above: Expected: 07/12/2024 (Approximate), Expires: 07/12/2025 Start: 07-12-2024 End: 07-12-2025 Measurement of glucose 1 hour after glucose challenge for glucose tolerance test Glucose tolerance, 1 hour Lab Routine Diabetes mellitus screening Expected: 07/12/2024 (Approximate), Expires: 07/12/2025 [facility] Comment on above: Expected: 07/12/2024 (Approximate), Expires: 07/12/2025 Start: 07-12-2024 End: 07-12-2024 Patient encounter procedure [facility] Comment on above: Arrived Start: 06-11-2024 End: 06-11-2024 Patient encounter procedure 06/11/2024 3:50 PM EST Routine [facility] [address] [facility] [place] [address] Lee Rand, [address] [place] [address] [facility] Start: 06-11-2024 End: 12-09-2024 Alpha fetoprotein, maternal Alpha fetoprotein, maternal Lab Routine Second trimester Expected: 06/11/2024 (Approximate), Expires: 12/09/2024 [facility] Comment on above: Expected: 06/11/2024 (Approximate), Expires: 12/09/2024 Start: 06-11-2024 End: 06-11-2025 US for US OB ANATOMY SINGLE W US OB CERVICAL LENGTH Imaging Routine Screening, , for anatomic survey Expected: 06/11/2024 (Approximate), Expires: 06/11/2025 [facility] Comment on above: Expected: 06/11/2024 (Approximate), Expires: 06/11/2025 Start: 05-08-2024 End: 05-08-2024 Patient encounter procedure [facility] Comment on above: Arrived Start: 04-05-2024 End: 04-05-2025 ABO/Rh ABO/Rh Lab Routine Missed menses Expected: 04/05/2024 (Approximate), Expires: 04/05/2025 [facility] Comment on above: Expected: 04/05/2024 (Approximate), [...] gestational age Expected: 04/05/2024 (Approximate), Expires: 04/05/2025 [facility] Comment on above: Expected: 04/05/2024 (Approximate), Expires: 04/05/2025 Start: 04-05-2024 End: 04-05-2025 US Pelvis transvaginal US OB transvaginal Imaging Routine Missed menses Expected: 04/05/2024 (Approximate), Expires: 04/05/2025 [facility] Comment on above: Expected: 04/05/2024 (Approximate), Expires: 04/05/2025 Bacteria identified in Urine by Culture Urine culture Microbiology Routine Missed menses Ordered: 04/05/2024 [facility] Comment on above: Ordered: 04/05/2024 CBC W Auto Different ial panel - Blood CBC and differential Lab Routine Missed menses Ordered: 04/05/2024 [facility] Comment on above: Ordered: 04/05/2024 CHLAMYDIA [...] Ordered: 06/11/2024 Payers Date Payer Category Payer [facility] Health Insurance [employer] [id number] 2024 Unknown [id number] 2020 Managed Care HMO (unspecified) [id number] 1991 Unknown [id number] 2.16.840.1.341777.3.579.2. 593 1991 Unknown [id number] 2.16.840.1.876491.3.579.2. 593 1991 Unknown [id number] 2.16.840.1.287548.3.579.2. 593 1991 Unknown [id number] 2.16.840.1.993624.3.579.2. 593 1991 Unknown [id number] 2.16.840.1.231860.3.579.2. 593 1991 Unknown [id number] 2.16.840.1.100553.3.579.2. 593 1991 Unknown [id number] 2.16.840.1.156542.3.579.2. 593 1991 Unknown [id number] 2.16.840.1.605970.3.579.2. 593 1991 Unknown [id number] 2.16.840.1.544751.3.579.2. 593 1991 Unknown [id number] 2.16.840.1.838921.3.579.2. 593 1991 Unknown [id number] 2.16.840.1.685023.3.579.2. 593 1991 Unknown [id number] 2.16.840.1.773547.3.579.2. 593 1991 Unknown [id number] 2.16.840.1.593889.3.579.2. 593 1991 Unknown [id number] 2.16.840.1.148738.3.579.2. 593 1991 Unknown [id number] 2.16.840.1.634596.3.579.2. 593 1991 Unknown [id number] 2.16.840.1.757427.3.579.2. 593 1991 Unknown [id number] 2.16.840.1.457887.3.579.2. 593 1991 Unknown [id number] 2.16.840.1.462455.3.579.2. 593 1991 Unknown [id number] 2.16.840.1.169944.3.579.2. 593 1991 Unknown [id number] 2.16.840.1.937586.3.579.2. 593 1991 Unknown [id number] 2.16.840.1.947553.3.579.2. 593 1991 Unknown [id number] 2.16.840.1.733794.3.579.2. 1259 1991 Unknown [id number] 2.16.840.1.126243.3.579.2. 1259 1991 Unknown [id number] 2.16.840.1.730711.3.579.2. 1259 1991 Unknown [id number] 2.16.840.1.571117.3.579.2. 9 1991 Unknown [id number] 2.16.840.1.225961.3.579.2. 1259 1991 Unknown [id number] 2.16.840.1.902867.3.579.2. 9 1991 Unknown [id number] 2.16.840.1.265239.3.579.2. 1259 1991 Unknown [id number] 2.16.840.1.227402.3.579.2. 9 1991 Unknown [id number] 2.16.840.1.781971.3.579.2. 1259 1991 Unknown [id number] 2.16.840.1.247634.3.579.2. 1259 1959 Private Health Insurance [id number] Social History Date Type Detail Facility Start: 02-08-2023 Tobacco smoking stat [facility] Never smoked tobacco [facility] Start: 02-08-2023 Tobacco use and exposure Smokeless t obacco non-user [facility] Start: 04-05-2024 End: 09-12-2024 Alcoholic beverage intake Lifetime non-drinker (finding) [facility] Start: 07-19-2023 End: 01-02-2024 History of Social function [facility] Start: 07-19-2023 End: 01-02-2024 Tobacco use panel [facility] Start: 02-18-2024 [facility] Kory jules Start: 1990 Sex assigned at Female [facility] Start: 02-06-2023 Gender identity Identifies as female gender (finding) [facility] Start: 02-06-2023 Sexual orientation Heterosexual (fin ding) [facility] Medical Equipment Procedure Code Equipment Code Equipment Origin al Text Equipment Identifier Dates 1 strip by In Vi tro route Daily Use in the morning prior to breakfast, 1 hour after each meal for a total of 4times daily. [id number] Start: 08-09-2024 End: 09-12-2024 1 each by In Vit ro route Daily Use to check FSBS four times daily [id number] Start: 08-09-2024 End: 09-12-2024 Goals Date Patient Goal Desired Activity /State Personal health goal Clinical Notes 06-04-2022 to 09-26-2024 Tere Hu, [facility] - 09/26/2024 11:10 AM David Hu, [facility] - 09/12/2024 2:30 PM David Hu, [facility] - 08/29/2024 3:20 PM Corbin Parsons, [facility] - 08/09/2024 9:10 AM EST Note Date [...] nursing note reviewed. Exam conducted with a reflexologist present. Vitals: Estimated body mass index is [...] kick counts three times a day. At [facility] pt found out VSD noted- pt to return to [facility] on 10/03 for echo. Orders Placed This Encounter Procedures POCT urinalysis dipstick manually resulted Follow Up: Patient is to return to office in 2 week for routine OB appointment. Documented by Tere Hu LPN on behalf of: Lee Rand DO documented in this encounter [facility] 09-12-2024 History of Presen t illness Narrative [...] nursing note reviewed. Exam conducted with a reflexologist present. Vitals: Estimated body mass index is [...] nursing note reviewed. Exam conducted with a reflexologist present. Vitals: Estimated body mass index is [...] nursing note reviewed. Exam conducted with a reflexologist present. Vitals: Estimated body mass index is [...] nursing note reviewed. Exam conducted with a reflexologist present. Vitals: Estimated body mass index is [...] with patient and she is scheduled with [facility] for confirmation of complete placenta previa. Patient [...] nursing note reviewed. Exam conducted with a reflexologist present. Vitals: Estimated body mass index is [...] nursing note reviewed. Exam conducted with a reflexologist present. Vitals: Estimated body mass index is [...] undercooked meat, and stay away from [facility]. Patient has been consulted regarding any [...] undercooked meat, and stay away from [facility]. Patient has also been advised to [...] significant left uterine horn. SURGEON: Lee Rand CANOPY INSPECTOR: SCARLET Albert URINE OUTPUT: Yellow and clear. [...] the Recovery Room in stable condition. [facility] Evaluation note Diagnosis 13 weeks gestation of [...] and content) DATE CREATED AUTHOR 06/14/2022 [facility] pital DATE CREATED AUTHOR AUTHOR'S ORGANIZ ATION 09/28/2024 [facility] dical Specialists EPIC Care Teams (unrecognized sec tion and content) [employer] Relationship Specialty Start Date End Date Fito Cueto MD [address] [place] [address] PCP - General Family Medicine 02/09/23 [employer] Relationship Specialty Start Date End Date Fito Cueto MD [facility] [place] [address] PCP - General Family Medicine 02/09/23 [employer] Relationship Specialty Start Date End Date Fito Cueto MD [address] [place] [address] PCP - General Family Medicine 02/09/23 [employer] Relationship Specialty Start Date End Date Fito Cueto MD [address] [place] [address] PCP - General Family Medicine 02/09/23 [employer] Relationship Specialty Start Date End Date Fito Cueto MD [address] [place] [address] PCP - General Family Medicine 02/09/23 [employer] Relationship Specialty Start Date End Date Fito Cueto MD [address] [facility], [place] [address] PCP - General Family Medicine 02/09/23 [employer] Relationship Specialty Start Date End Date Fito Cueto MD [address] [place] [address] PCP - General Family Medicine 02/09/23 [employer] Relationship Specialty Start Date End Date Fito Cueto MD [address] [place] [address] PCP - General Family Medicine 02/09/23 [employer] Relationship Specialty Start Date End Date Fito Cueto MD [address] [place] [address] PCP - General Family Medicine 02/09/23 [employer] Relationship Specialty Start Date End Date Fito Cueto MD [address] [place] [address] PCP - General Family Medicine 02/09/23 [employer] Relationship Specialty Start Date End Date Fito Cueto MD [address] [place] [address] PCP - General [facility] Medicine 02/09/23 [employer] Relationship Specialty Start Date End Date Fito Cueto MD [address] [place] [address] PCP - General Family Medicine 02/09/23 Reason [...] BE BASED ON THE PRIMARY CLINICAL RECORDS. [facility] [employer] [facility]. provides no warranty or guarantee of the accuracy or completeness of information in this document.
--- NOTE | 2024-10-02 18:51 | US_ITS ---
[facility] [place] [id number] Patient Name: RUBÉN MACDONALD MRN: [id number]:[id number] date: 1990 Sex: F Assigned Patient Location: [facility] Current Patient Location: Accession/Order Number: [id number] Exam Date: 10/03/2024 07:30 Report Date: 10/03/2024 07:31 At the request of: MELINDA FREDERICK DO Procedure: US OB BPP w non-stress BIOPHYSICAL PROFILE: CLINICAL INFORMATION: DIET CONTROLLED GDM O24.410 COMPARISON: 09/25/2024 There is a single live intrauterine gestation in transverse presentation, head to the maternal left. The reported gestational age is 34 weeks 3 days. The heart rate [id number] beats per minute. FINDINGS: TONE: 1 or more episodes of activity extension and flexion of extremity or opening and closing of the hand [Y] 2/2 GROSS BODY MOVEMENTS: 3 or more discrete body or limb movements [Y] 2/2 BREATHING MOVEMENTS: 1 or more episodes of breathing lasting at least 30 seconds [Y] 2/2 JAS: A single deepest vertical pocket of amniotic fluid greater than 2 cm [Y] 2/2 JAS: 14.0 cm . This is in normal range. Total score: 8/8 US/US OB BPP w non-stress IMPRESSION: NORMAL BIOPHYSICAL PROFILE Impression dictated by: Tere Munoz M.D.10/03/2024 7:31 AM Dictation Location: [place] [address] Electronically authenticated by: [id number] Y Date: 10/03/2024 07:31
[2024-10-02 19:28] VITALS: BP 117/77; PULSE 96; TEMP 36.5
== END 2024-10-02 19:53 | disposition home or self-care (01) ==
LOC: US 18:45 → FBC 18:48
PROVIDERS: Visit Provider Obstetrics & Gynecology
DX: O24.410 Gestational diabetes mellitus in pregnancy, diet controlled (principal); Z3A.34 34 weeks gestation of pregnancy
CPT/HCPCS: 76818

== ENCOUNTER 2024-10-03 07:35 | Inpatient (IN) | payer OTHER, SELFPAY ==
[2024-10-03] VITALS (83 sets, daily range): BP systolic 74–138; BP diastolic 46–105; PULSE 85–123; TEMP 35.8–37.3; O2SAT 94–100
--- OUTSIDE RECORDS SUMMARY | 2024-10-03 07:42 | XMS_ITS | CCD ---
Author Organization [facility] Care Team Providers Care Greenskeeper Name Role Phone KEYONA, DR LAWRENCE Admitting [...] Attending Unavailable TELLY, DR PENNINGTON Consulting Unavailable BAINBRIDGE, DR RIGO Medina Consulting Unavailable KEYONA, DR LAWRENCE Consulting Unavailable Nory DAVIS, Fito Primary Care Provider [phone] KEYONA, LEE Attending Unavailable KEYONA, LEE Attending Unavailable KEYONA, LEE Attending Unavailable KEYONA, LEE Attending Unavailable KEYONA, LEE Attending Unavailable KEYONA, LEE Attending Unavailable KEYONA, LEE Attending Unavailable KEYONA, LEE Attending Unavailable KEYONA, LEE Attending Unavailable Allergies Allergy Classification Reported Allergen(s) Allergy Type Date of Onset Reaction(s) Facility (2 sources) Acetaminophen / HYDROcodone Drug Allergy [facility] Repository Medications Current Medications Medication Drug [...] Negative Negative - 4(70) +++ mg/dL [facility] Blood, UA Positive Negative - 50 Yang/mcL [facility] Comment on above: Trace - Intact Clarity, UA Clear [facility] Color, UA Yellow [facility] Glucose, UA Negative Negative - 1999(110) ++++ mg/dL [facility] Interpretation and review of laboratory results Abnormal [facility] Ketones, UA Negative Negative - 160(16) ++++ mg/dL [facility] Leukocytes, UA Trace Negative - 500+++ Derik/mcL [facility] Nitrite, UA Negative Negative - Positive [facility] pH, UA 6.5 5 - 9 [facility] Protein, UA Negative Negative - 1999(20) ++++ mg/dL [facility] Spec Grav, UA 1.015 1 - 1.03 [facility] Urobilinogen, UA 0.2 0.2 - 12 mg/dL [facility] US OB BPP W NON-STRESS on 09-25-2024 [place] [address] Ultrasound Report Signed Patient: ANNA LAW MR#: [id number] : 1990 Acct:[id number] Age/Sex: 34 / F ADM Date: 09/25/24 Loc: US Attending Dr: Lee Rand D.O. Ordering Physician: Lee Rand D.O. Date of Service: 09/25/24 Procedure(s): US OB BPP w non-stress Accession Number(s): [id number] cc: Lee Rand D.O.; Physician,Non-Staff [place] [address] Patient Name: ANNA LAW MRN: [id number] date: 1990 Sex: F Assigned Patient Location: [facility] Current Patient Location: Accession/Order Number: [id number] Exam Date: 09/25/2024 22:21 Report Date: 09/25/2024 22:23 At the request of: LEE RAND DO Procedure: US OB BPP w non-stress Biophysical profile. Reason for exam: Diet-controlled gestational diabetes. COMPARISON: BPP 09/18/2024 Technique: Transabdominal imaging of the gravid uterus was obtained. FINDINGS: Fisheries Technician reports the BPP is 8 out of 8. JAS is normal at 12.8 cm. heart rate 127 bpm. US/US OB BPP w non-stress IMPRESSION: BPP 8 out of 8. Impression dictated by: Pete Engle Jr., D.O.09/25/2024 10:23 PM Dictation Location: [place] [address] Electronically authenticated by: [id number] Y Date: 09/25/2024 22:23 Dictated By: Pete Engle M.D. Signed By: 09/25/242224 DD/ 22 TD/TT: Technical Agronomist: [facility] Radiology, Radiologist, MD - 09/25/2024 [place] [address] Ultrasound Report Signed Patient: ANNA LAW MR#: [id number] : 1990 Acct:[id number] Age/Sex: 34 / F ADM Date: 09/25/24 Loc: US Attending Dr: Lee Rand D.O. Ordering Physician: Lee Rand D.O. Date of Service: 09/25/24 Procedure(s): US OB BPP w non-stress Accession Number(s): [id number] cc: Lee Rand D.O.; Physician,Non-Staff [place] [address] Patient Name: ANNA LAW MRN: [facility]:[id number] date: 1990 Sex: F Assigned Patient Location: [facility] Current Patient Location: Accession/Order Number: [id number] Exam Date: 09/25/2024 22:21 Report Date: 09/25/2024 22:23 At the request of: LEE RAND DO Procedure: US OB BPP w non-stress Biophysical profile. Reason for exam: Diet-controlled gestational diabetes. COMPARISON: BPP 09/18/2024 Technique: Transabdominal imaging of the gravid uterus was obtained. FINDINGS: Fisheries Technician reports the BPP is 8 out of 8. JAS is normal at 12.8 cm. heart rate 127 bpm. US/US OB BPP w non-stress IMPRESSION: BPP 8 out of 8. Impression dictated by: Pete Engle Jr., D.O.09/25/2024 10:23 PM Dictation Location: [place] [address] Electronically authenticated by: [id number] Y Date: 09/25/2024 22:23 Dictated By: Pete Engle M.D. Signed By: 09/25/242224 DD/ 22 TD/TT: Technical Agronomist: [facility] Radiology Study observation (narrative) [facility] US OB BPP W NON-STRESS Ordered By: Radiologist Radiology on 09-25-2024 [facility] Work Phone: US OB BPP W NON-STRESS on 09-18-2024 [place] [address] Ultrasound Report Signed Patient: ANNA LAW MR#: [id number] : 1990 Acct:[id number] Age/Sex: 34 / F ADM Date: 09/18/24 Loc: US Attending Dr: Lee Rand D.O. Ordering Physician: Lee Rand D.O. Date of Service: 09/18/24 Procedure(s): US OB BPP w non-stress Accession Number(s): [id number] cc: Lee Rand D.O.; Physician,Non-Staff [place] [address] Patient Name: ANNA LAW MRN: [id number] date: 1990 Sex: F Assigned Patient Location: US Current Patient Location: Accession/Order Number: [id number] Exam Date: 09/18/2024 22:52 Report Date: 09/18/2024 22:56 At the request of: LEE RAND DO Procedure: US OB BPP w non-stress Biophysical profile. Reason for exam: Diet-controlled gestational diabetes. COMPARISON: BPP 09/12/2024. Technique: Transabdominal imaging of the gravid uterus was obtained. FINDINGS: Fisheries Technician reports the BPP is 8 out of 8. JAS is normal at 14.3 cm. heart rate 135 bpm. US/US OB BPP w non-stress IMPRESSION: BPP 8 out of 8. Impression dictated by: Pete Engle Jr., D.O.09/18/2024 10:56 PM Dictation Location: [place] [address] Electronically authenticated by: [id number] Y Date: 09/18/2024 22:56 Dictated By: Pete Engle M.D. Signed By: 09/18/242257 DD/ 55 TD/TT: Technical Agronomist: [facility] Radiology, Radiologist, MD - 09/18/2024 [place] [address] Ultrasound Report Signed Patient: ANNA LAW MR#: [id number] : 1990 Acct:[id number] Age/Sex: 34 / F ADM Date: 09/18/24 Loc: US Attending Dr: Lee Rand D.O. Ordering Physician: Lee Rand D.O. Date of Service: 09/18/24 Procedure(s): US OB BPP w non-stress Accession Number(s): [id number] cc: Lee Rand D.O.; Physician,Non-Staff [place] [id number] Patient Name: ANNA LAW MRN: [facility]:[id number] date: 1990 Sex: F Assigned Patient Location: US Current Patient Location: Accession/Order Number: [id number] Exam Date: 09/18/2024 22:52 Report Date: 09/18/2024 22:56 At the request of: LEE RAND DO Procedure: US OB BPP w non-stress Biophysical profile. Reason for exam: Diet-controlled gestational diabetes. COMPARISON: BPP 09/12/2024. Technique: Transabdominal imaging of the gravid uterus was obtained. FINDINGS: Fisheries Technician reports the BPP is 8 out of 8. JAS is normal at 14.3 cm. heart rate 135 bpm. US/US OB BPP w non-stress IMPRESSION: BPP 8 out of 8. Impression dictated by: Pete Engle Jr., D.O.09/18/2024 10:56 PM Dictation Location: [facility] Electronically authenticated by: [id number] Y Date: 09/18/2024 22:56 Dictated By: Pete Engle M.D. Signed By: 09/18/242257 DD/ 55 TD/TT: Technical Agronomist: [facility] Radiology Study observation (narrative) [facility] US OB BPP W NON-STRESS Ordered By: Radiologist Radiology on 09-18-2024 [facility] Work Phone: US OB BPP W NON-STRESS on 09-12-2024 [place] [address] Ultrasound Report Signed Patient: ANNA LAW MR#: [id number] : 1990 Acct:[id number] Age/Sex: 34 / F ADM Date: 09/11/24 Loc: US Attending Dr: Lee Rand D.O. Ordering Physician: Lee Rand D.O. Date of Service: 09/11/24 Procedure(s): US OB BPP w non-stress Accession Number(s): [id number] cc: Lee Rand D.O.; Physician,Non-Staff [place] [address] Patient Name: ANNA LAW MRN: [facility]:[id number] date: 1990 Sex: F Assigned Patient Location: [facility] Current Patient Location: Accession/Order Number: [id number] Exam Date: 09/12/2024 09:01 Report Date: 09/12/2024 [...] 31 weeks 3 days. The heart rate [id number] beats per minute. FINDINGS: TONE: 1 or [...] Tere Munoz M.D.09/12/2024 9:04 AM Dictation Location[facility] [employer] [facility] Electronically authenticated by: [id number] Y Date: 09/12/2024 09:04 Dictated By: Tere Munoz M.D. Signed By: 09/12/24905 DD/ 3 TD/TT: Technical Agronomist: [facility] Radiology, Radiologist, MD - 09/12/2024 [place] [address] Ultrasound Report Signed Patient: ANNA LAW MR#: [id number] : 1990 Acct:[id number] Age/Sex: 34 / F ADM Date: 09/11/24 Loc: US Attending Dr: Lee Rand D.O. Ordering Physician: Lee Rand D.O. Date of Service: 09/11/24 Procedure(s): US OB BPP w non-stress Accession Number(s): [id number] cc: Lee Rand D.O.; Physician,Non-Staff [place] [address] [address] Patient Name: ANNA LAW MRN: [facility]:[id number] date: 1990 Sex: F Assigned Patient Location: [facility] Current Patient Location: Accession/Order Number: [id number] Exam Date: 09/12/2024 09:01 Report Date: 09/12/2024 [...] 31 weeks 3 days. The heart rate [id number] beats per minute. FINDINGS: TONE: 1 or [...] Tere Munoz M.D.09/12/2024 9:04 AM Dictation Location: [employer] Electronically authenticated by: [id number] Y Date: 09/12/2024 09:04 Dictated By: Tere Munoz M.D. Signed By: 09/12/24905 DD/ 3 TD/TT: Technical Agronomist: [facility] Radiology Study observation (narrative) [facility] US OB BPP W NON-STRESS Ordered By: Radiologist Radiology on 09-12-2024 [facility] Work Phone: Urinalysis macro (dipstick) panel (U)on 09-12-2024 Bilirubin, UA Negative Negative - 4(70) +++ mg/dL [facility] Blood, UA Negative Negative - 50 Yang/mcL [facility] Clarity, UA Clear [facility] Color, UA Yellow [facility] Glucose, UA Negative Negative - 2000(110) ++++ mg/dL [facility] Interpretation and review of laboratory results Abnormal [facility] Ketones, UA Positive Negative - 160(16) ++++ mg/dL [facility] Comment on above: trace Leukocytes, UA Negative Negative - 500+++ Derik/mcL [facility] Nitrite, UA Negative Negative - Positive [facility] pH, UA 7 5 - 9 [facility] Protein, UA Trace Negative - 2000(20) ++++ mg/dL [facility] Spec Grav, UA 1.02 1 - 1.03 [facility] Urobilinogen, UA 0.2 0.2 - 12 mg/dL [facility] US OB BPP W NON-STRESS on 09-05-2024 [place] [address] Ultrasound Report Signed Patient: ANNA LAW MR#: [id number] : 1990 Acct:[id number] Age/Sex: 34 / F ADM Date: 09/04/24 Loc: US Attending Dr: Lee Rand D.O. Ordering Physician: Lee Rand D.O. Date of Service: 09/04/24 Procedure(s): US OB BPP w non-stress Accession Number(s): [id number] cc: Lee Rand D.O.; Physician,Non-Staff [place] [address] Patient Name: ANNA LAW MRN: [facility]:[id number] date: 1990 Sex: F Assigned Patient Location: [facility] Current Patient Location: Accession/Order Number: [id number] Exam Date: 09/04/2024 18:52 Report Date: 09/05/2024 [...] M.D. Signed By: 09/05/24554 DD/ 2 TD/TT: Technical Agronomist: [facility] Radiology, Radiologist, - 09/05/2024 [place] [address] Ultrasound Report Signed Patient: ANNA LAW MR#: [id number] : 1990 Acct:[id number] Age/Sex: 34 / F ADM Date: 09/04/24 Loc: US Attending Dr: Lee Rand D.O. Ordering Physician: Lee Rand D.O. Date of Service: 09/04/24 Procedure(s): US OB BPP w non-stress Accession Number(s): [id number] cc: Lee Rand D.O.; Physician,Non-Staff [place] [address] [address] Patient Name: ANNA LAW MRN: [facility]:[id number] date: 1990 Sex: F Assigned Patient Location: [facility] Current Patient Location: Accession/Order Number: [id number] Exam Date: 09/04/2024 18:52 Report Date: 09/05/2024 [...] M.D. Signed By: 09/05/2455 DD/ 2 TD/TT: Technical Agronomist: [facility] Radiology Study observation (narrative) [facility] US OB BPP W NON-STRESS Ordered By: Radiologist Radiology on 09-05-2024 [facility] Work Phone: Urinalysis macro (dipstick) panel (U)on 08-29-2024 Bilirubin, UA Negative Negative - 4(70) +++ mg/dL [facility] Blood, UA Positive Negative - 50 Yang/mcL [facility] Comment on above: trace-intact Clarity, UA Clear [facility] Color, UA Yellow [facility] Glucose, UA Negative Negative - 1999(110) ++++ mg/dL [facility] Interpretation and review of laboratory results Abnormal [facility] Ketones, UA Positive Negative - 160(16) ++++ mg/dL [facility] Comment on above: 40 Leukocytes, UA Trace Negative - 500+++ Derik/mcL [facility] Nitrite, UA Negative Negative - Positive [facility] pH, UA 5.5 5 - 9 [facility] Protein, UA Trace Negative - 1999(20) ++++ mg/dL [facility] Spec Grav, UA 1.025 1 - 1.03 [facility] Urobilinogen, UA 1.0 0.2 - 12 mg/dL [facility] GLUCOSE TOLERANCE 3 HOURon 0 07-28-2024 GLUCOSE TOLERANCE 3 HOUR High mg/dL [facility] Comment on above: GLU FAST 87 (<95) Co l: 07/28/24 0638 GLU 1HR 199H (<180) Col: 07/28/24 0739 GLU 2HR 173H (<155) Col: 07/28/24 0839 GLU 3HR 94 (<140) Col: 07/28/24 0939 Interpretation and review of laboratory results Abnormal [facility] [place] GLUCOSE 1 HOURon 07-21-2024 Glucose [Mass/Vol] 154 mg/dL High NINF - 13 0 mg/dL [facility] Interpretation and review of laboratory results Abnormal [facility] Urinalysis macro (dipstick) panel (U)on 07-12-2024 Bilirubin, UA Negative Negative - 4(70) +++ mg/dL [facility] Blood, UA Negative Negative - 50 Yang/mcL [facility] Clarity, UA Clear [facility] Color, UA Yellow [facility] Glucose, UA Negative Negative - 1999(110) ++++ mg/dL [facility] Interpretation and review of laboratory results Normal [facility] Ketones, UA Negative Negative - 160(16) ++++ mg/dL [facility] Leukocytes, UA Negative Negative - 500+++ Derik/mcL [facility] Nitrite, UA Negative Negative - Positive [facility] pH, UA 7 5 - 9 [facility] Protein, UA Negative Negative - 1999(20) ++++ mg/dL [facility] Spec Grav, UA 1.02 1 - 1.03 [facility] Urobilinogen, UA 1.0 0.2 - 12 mg/dL [facility] AFP, SERUM, OPEN SPINA BIFID Aon 07-04-2024 AFP MOM 1.60 . [facility] AFP VALUE 91.9 ng/mL . [facility] COMMENT: Comment . [facility] Comment on above: Sonia Sullivan , Ph.D., [facility] Director References: Available Upon Request. Multiples Of Median Cutoffs For AFP Elevations Bhandari 2.5 Black 2.8 IDD 2.0 Twins 4.5 Abbreviation Definitions IDD - Insulin Dep Diabetes OSBR - Open Spina Bifida Risk For further inquiries contact [employer] [facility] at [phone]. This test was developed and its performance characteristics determined by [facility]. It has not been cleared or approved by the Food and Drug Administration. Performed at: [facility] [address] [place], [place] [id number] Grain Handler: Francis Boyd [facility], Phone: [phone] GEST. AGE ON COLLECTION DATE 21.0 . weeks [facility] GESTAT. AGE BASED ON LMP . [facility] Comment on above: Recalculations are n ot recommended when gestational dating by LMP and ultrasound are within 10 days. INSULIN DEP DIABETES No . [facility] INTERPRETATION Comment . [facility] Comment on above: Interpretation: Scre en Negative [...] Customer Services to discuss available options. The [employer] recommends amniocentesis be offered to women age 35 and older. [age] [facility] MULTIPLE GESTATION No . [facility] OSBR RISK 1 IN 2100 . [facility] RACE . [facility] RESULTS Report . [facility] TEST RESULTS: Negative . [facility] WEIGHT 177 . lbs [facility] N LMP [id number] 2 18 N 1 Y 177 N N N White/ [facility] RECURRENT VAGINITIS (HTRX)on 06-13-2024 ATOPOBIUM VAGINAE 30.301 Abnormal [facility] ATOPOBIUM VAGINAE Detected Abnormal [facility] BVAB 2,3 (BACTERIAL VAGINOSIS ASSOCIATED BACTERIA 2, 3); MOBILUNCUS SPP 0 [facility] BVAB 2,3 (BACTERIAL VAGINOSIS ASSOCIATED BACTERIA 2, 3); MOBILUNCUS SPP Not detected [facility] KAITLYNN ALBICANS, PARAPSILOSIS, TROPICALIS 0 [facility] KAITLYNN ALBICANS, PARAPSILOSIS, TROPICALIS Not detected [facility] KAITLYNN GLABRATA 0 [facility] KAITLYNN GLABRATA Not detected [facility] KAITLYNN KRUSEI 0 [facility] KAITLYNN KRUSEI Not detected [facility] CHLAMYDIA TRACHOMATIS 0 [facility] CHLAMYDIA TRACHOMATIS Not detected [facility] GARDNERELLA VAGINALIS 21.1 Abnormal [facility] GARDNERELLA VAGINALIS Detected Abnormal [facility] Interpretation and review of laboratory results Abnormal [facility] MEGASPHAERA (TYPES 1, 2) 0 [facility] MEGASPHAERA (TYPES 1, 2) Not detected [facility] MYCOPLASMA GENITALIUM 0 [facility] MYCOPLASMA GENITALIUM Not detected [facility] NEISSERIA GONORRHOEAE 0 [facility] NEISSERIA GONORRHOEAE Not detected [facility] TRICHOMONAS VAGINALIS 0 [facility] TRICHOMONAS VAGINALIS Not detected [facility] Urinalysis macro (dipstick) panel (U)on 06-11-2024 Bilirubin, UA Negative Negative - 4(70) +++ mg/dL [facility] Blood, UA Negative Negative - 50 Yang/mcL [facility] Clarity, UA Clear [facility] Color, UA Yellow [facility] Glucose, UA Negative Negative - 2000(110) ++++ mg/dL [facility] Interpretation and review of laboratory results Normal [facility] Ketones, UA Negative Negative - 160(16) ++++ mg/dL [facility] Leukocytes, UA Negative Negative - 500+++ Derik/mcL [facility] Nitrite, UA Negative Negative - Positive [facility] pH, UA 5.5 5 - 9 [facility] Protein, UA Negative Negative - 1999(20) ++++ mg/dL [facility] Spec Grav, UA 1.02 1 - 1.03 [facility] Urobilinogen, UA 1.0 0.2 - 12 mg/dL [facility] Urinalysis macro (dipstick) panel (U)on 05-08-2024 Bilirubin, UA Negative Negative - 4(70) +++ mg/dL [facility] Blood, UA Positive Negative - 50 Yang/mcL [facility] Comment on above: trace-intact Clarity, UA Clear [facility] Color, UA Yellow [facility] Glucose, UA Negative Negative - 1999(110) ++++ mg/dL [facility] Interpretation and review of laboratory results Abnormal [facility] Ketones, UA Negative Negative - 160(16) ++++ mg/dL [facility] Leukocytes, UA Negative Negative - 500+++ Derik/mcL [facility] Nitrite, UA Negative Negative - Positive [facility] pH, UA 6 5 - 9 [facility] Protein, UA Negative Negative - 1999(20) ++++ mg/dL [facility] Spec Grav, UA 1.025 1 - 1.03 [facility] Urobilinogen, UA 0.2 0.2 - 12 mg/dL [facility] ALL CBC WITH AUTO DIFFon BASOPHILS ABSOLUTE AUTO 0.0 [facility] Basophils/100 WBC (Bld) 0.4 % 0.2 - 2.0 % [facility] Eosinophils/100 WBC (Bld) 0.9 % 0.9 - 7.0 % [facility] Erythrocyte distribution width (RBC) [Ratio] 11.9 % 11.0 - 15.0 % [facility] Hematocrit (Bld) [Volume fraction] 37.1 % 36.0 - 48.0 % [facility] Hemoglobin (Bld) [Mass/Vol] 12.6 g/dL 12.0 - 16.0 g/dL [facility] IMMATURE GRANULOCYTES ABS AUTO 0.03 [facility] Immature granulocytes/100 WBC (Bld) 0.4 % 0.0 - 0.5 % [facility] Interpretation and review of laboratory results Abnormal [facility] LYMPHOCYTES ABSOLUTE AUTO 1.7 [facility] Lymphocytes/100 WBC (Bld) 21.2 % 20.5 - 60.0 % [facility] MCH (RBC) [Entitic mass] 31.7 pg 26.7 - 34.0 pg [facility] MCHC (RBC) [Mass/Vol] 34.0 g/dL 29.9 - 35.2 g/dL [facility] MCV (RBC) [Entitic vol] 93.5 fL 81.0 - 99.0 fL [facility] MONOCYTES ABSOLUTE AUTO 0.6 [facility] Monocytes/100 WBC (Bld) 6.8 % 1.7 - 12.0 % [facility] NEUTROPHILS ABSOLUTE AUTO 5.7 [facility] Neutrophils/100 WBC (Bld) 70.3 % 43.0 - 75.0 % [facility] Platelet mean volume (Bld) [Entitic vol] 9.8 fL 9.5 - 13.5 fL [facility] TBH EO # 0.1 [facility] TB PLT 219 [facility] RBC 3.97 Low [facility] WBC 8.1 [facility] HCG ( test) Ql (U)o n 04-05-2024 Interpretation and review of laboratory results Abnormal [facility] Preg Test, Ur Positive [facility] Urinalysis macro (dipstick) panel (U)on 04-05-2024 Bilirubin, UA Negative Negative - 4(70) +++ mg/dL [facility] Blood, UA Positive Negative - 50 Yang/mcL [facility] Comment on above: trace intact Clarity, UA Clear [facility] Color, UA Yellow [facility] Glucose, UA Negative Negative - 1999(110) ++++ mg/dL [facility] Interpretation and review of laboratory results Abnormal [facility] Ketones, UA Negative Negative - 160(16) ++++ mg/dL [facility] Leukocytes, UA Trace Negative - 500+++ Derik/mcL [facility] Nitrite, UA Negative Negative - Positive [facility] pH, UA 6.5 5 - 9 [facility] Protein, UA Negative Negative - 1999(20) ++++ mg/dL [facility] Spec Grav, UA 1.015 1 - 1.03 [facility] Urobilinogen, UA 0.2 0.2 - 12 mg/dL [facility] CBC AUTO DIFFon 06-05-2022 BASO # 0.0 103/ul Normal 0.0-0.1 [facility] Comment on above: Performed By: #### C BC #### [facility] [address] [place] [address] Dr. Sandi Michelle Basophils/100 WBC (Bld) 0.2 % Normal 0.2-2.0 [facility] Comment on above: Performed By: #### C BC #### [facility] [address] [place] [address] [address] Sandi Michelle EO # 0.0 103/ul Normal 0.0-0.7 [facility] Comment on above: Performed By: #### C BC #### [facility] [address] [place] [address] Dr. Sandi Michelle Eosinophils/100 WBC (Bld) 0.2 % Critically low 0.9-7.0 [facility] Comment on above: Performed By: #### C BC #### [facility] [address] [place] [address] Dr. Sandi Michelle Erythrocyte distribution width (RBC) [Ratio] 14.3 % Normal 11.0-15.0 [facility] Comment on above: Performed By: #### C BC #### [facility] [address] [place] [address] Dr. Sandi Michelle Hematocrit (Bld) [Volume fraction] 27.3 % Critically low 36.0-48.0 [facility] Comment on above: Performed By: #### C BC #### [facility] [address] [place] [address] Dr. Sandi Michelle Hemoglobin (Bld) [Mass/Vol] 9.3 g/dL Critically low 12.0-16.0 [facility] Comment on above: Result Comment: DELI VERY Performed By: #### C BC #### [facility] [address] [place] [address] Dr. Sandi Michelle IG # 0.14 10e3/ul Critically high 0.00-0.03 [facility] Comment on above: Performed By: #### C BC #### [facility] [address] [place] [address] Dr. Sandi Michelle IG % 1.1 % Critically high 0.0-0.5 [facility] Comment on above: Performed By: #### C BC #### [facility] [address] [place] [address] Dr. Sandi Michelle LYMPH # 1.6 103/ul Normal 1.2-3.8 [facility] Comment on above: Performed By: #### C BC #### [facility] [address] [place] [address] Dr. Sandi Michelle Lymphocytes/100 WBC (Bld) 12.1 % Critically low 20.5-60.0 [facility] Comment on above: Performed By: #### C BC #### [facility] [address] [place] [address] Dr. Sandi Michelle MANUAL DIFF REQ NO Normal [facility] Comment on above: Performed By: #### C BC #### [facility] [address] [place] [address] Dr. Sandi Michelle MCH (RBC) [Entitic mass] 31.8 pg Normal 26.7-34.0 [facility] Comment on above: Performed By: #### C BC #### [facility] [address] [place] [address] Dr. Sandi Michelle MCHC (RBC) [Mass/Vol] 34.1 g/dL Normal 29.9-35.2 [facility] Comment on above: Performed By: #### C BC #### [facility] [address] [place] [address] Dr. Sandi Michelle MCV (RBC) [Entitic vol] 93.5 fL Normal 81.0-99.0 [facility] Comment on above: Performed By: #### C BC #### [facility] [address] [place] [address] Dr. Sandi Michelle MONO # 0.9 103/ul Critically high 0.3-0.8 [facility] Comment on above: Performed By: #### C BC #### [facility] [address] [place] [address] Dr. Sandi Michelle Monocytes/100 WBC (Bld) 6.8 % Normal 1.7-12.0 [facility] Comment on above: Performed By: #### C BC #### [facility] [address] [place] [address] Dr. Sandi Michelle NEUT # 10.3 103/ul Critically high 1.4-6.5 [facility] Comment on above: Performed By: #### C BC #### [facility] [address] [place] [address] Dr. Sandi Michelle Neutrophils/100 WBC (Bld) 79.6 % Critically high 43.0-75.0 [facility] Comment on above: Performed By: #### C BC #### [facility] [address] [place] [address] Dr. Sandi Michelle Platelet mean volume (Bld) [Entitic vol] 9.8 fL Normal 9.5-13.5 [facility] Comment on above: Performed By: #### C BC #### [facility] [address] [place] [address] Dr. Sandi Michelle PLT 138 103/ul Critically low 150-450 The [facility] Comment on above: Performed By: #### C BC #### [facility] [address] [place] [address] Dr. Sandi Michelle RBC 2.92 106/ul Critically low 4.20-5.40 [facility] Comment on above: Performed By: #### C BC #### [facility] [address] [place] [address] Dr. Sandi Michelle WBC 12.9 103/ul Critically high 4.0-11.0 [facility] Comment on above: Performed By: #### C BC #### [facility] [address] [place] [address] Dr. Sandi Michelle CBC AUTO DIFFon 06-04-2022 BASO # 0.0 103/ul Normal 0.0-0.1 [facility] Comment on above: Performed By: #### C BC #### [facility] [address] [place] [address] Dr. Sandi Michelle Basophils/100 WBC (Bld) 0.3 % Normal 0.2-2.0 [facility] Comment on above: Performed By: #### C BC #### [facility] [address] [place] [address] Dr. Sandi Michelle EO # 0.0 103/ul Normal 0.0-0.7 [facility] Comment on above: Performed By: #### C BC #### [facility] [address] [place] [address] Dr. Sandi Michelle Eosinophils/100 WBC (Bld) 0.1 % Critically low 0.9-7.0 [facility] Comment on above: Performed By: #### C BC #### [facility] [address] [place] [address] Dr. Sandi Michelle Erythrocyte distribution width (RBC) [Ratio] 14.4 % Normal 11.0-15.0 [facility] Comment on above: Performed By: #### C BC #### [facility] [address] [place] [address] Dr. Sandi Michelle Hematocrit (Bld) [Volume fraction] 37.2 % Normal 36.0-48.0 [facility] Comment on above: Performed By: #### C BC #### [facility] [address] [place] [address] Dr. Sandi Michelle Hemoglobin (Bld) [Mass/Vol] 12.9 g/dL Normal 12.0-16.0 [facility] Comment on above: Performed By: #### C BC #### [facility] [address] [place] [address] Dr. Sandi Michelle IG # 0.23 10e3/ul Critically high 0.00-0.03 [facility] Comment on above: Performed By: #### C BC #### [facility] [address] [place] [address] Dr. Sandi Michelle IG % 1.6 % Critically high 0.0-0.5 [facility] Comment on above: Performed By: #### C BC #### [facility] [address] [place] [address] Dr. Sandi Michelle LYMPH # 2.3 103/ul Normal 1.2-3.8 [facility] Comment on above: Performed By: #### C BC #### [facility] [address] [place] [address] Dr. Sandi Michelle Lymphocytes/100 WBC (Bld) 16.0 % Critically low 20.5-60.0 [facility] Comment on above: Performed By: #### C BC #### [facility] [address] [place] [address] Dr. Sandi Michelle MANUAL DIFF REQ NO Normal [facility] Comment on above: Performed By: #### C BC #### [facility] [address] [place] [address] Dr. Sandi Michelle MCH (RBC) [Entitic mass] 32.3 pg Normal 26.7-34.0 [facility] Comment on above: Performed By: #### C BC #### [facility] [address] [place] [address] Dr. Sandi Michelle MCHC (RBC) [Mass/Vol] 34.7 g/dL Normal 29.9-35.2 [facility] Comment on above: Performed By: #### C BC #### [facility] [address] [place] [address] Dr. Sandi Michelle MCV (RBC) [Entitic vol] 93.0 fL Normal 81.0-99.0 [facility] Comment on above: Performed By: #### C BC #### [facility] [address] [place] [address] Dr. Sandi Michelle MONO # 0.8 103/ul Normal 0.3-0.8 [facility] Comment on above: Performed By: #### C BC #### [facility] [address] [place] [address] Dr. Sandi Michelle Monocytes/100 WBC (Bld) 5.8 % Normal 1.7-12.0 [facility] Comment on above: Performed By: #### C BC #### [facility] [address] [place] [address] Dr. Sandi Michelle NEUT # 10.7 103/ul Critically high 1.4-6.5 [facility] Comment on above: Performed By: #### C BC #### [facility] [address] [address] [address] Sandi Michelle Neutrophils/100 WBC (Bld) 76.2 % Critically high 43.0-75.0 [facility] Comment on above: Performed By: #### C BC #### [facility] [address] [address] [address] Sandi Michelle Platelet mean volume (Bld) [Entitic vol] 10.9 fL Normal 9.5-13.5 [facility] Comment on above: Performed By: #### C BC #### [facility] [address] [place] [address] Dr. Sandi Michelle PLT 194 103/ul Normal 150-450 [facility] Comment on above: Performed By: #### C BC #### [facility] [address] [place] [address] Dr. Sandi Michelle RBC 4.00 106/ul Critically low 4.20-5.40 [facility] Comment on above: Performed By: #### C BC #### [facility] [address] [place] [address] Dr. Sandi Michelle WBC 14.0 103/ul Critically high 4.0-11.0 [facility] Comment on above: Performed By: #### C BC #### [facility] [address] [place] [address] Dr. Sandi Mcihelle Covid-19 PCR ([facility])on 05-25 SARS-CoV-2 (COVID-19) RNA ALETHEA+probe Ql (Unsp spec) Not detected Normal NOT DETECTED [facility] Comment on above: Result Comment: When [...] for this test is supported by the [place] of Health and Human Service's declaration that [...] be used). Performed By: #### C VDTBH ####[facility] [address] [place], [place] [address]Dr. Sandi Michelle DRUG SCREEN RAPID (URINE)on 06-04-2022 AMP Negative Normal NEGATIVE [facility] Comment on above: Performed By: #### D RUGRPD ####[facility] [address] [place], [place] [address]Dr. Sandi Michelle BAR Negative Normal NEGATIVE [facility] Comment on above: Performed By: #### D RUGRPD ####[facility] [address] [place], [place] [address]Dr. Sanjuanitasonia [facility] BUP Negative Normal NEGATIVE [facility] Comment on above: Performed By: #### D RUGRPD ####[facility] [address] [place], [place] [address]Dr. Sandi Michelle BZO Negative Normal NEGATIVE [facility] Comment on above: Performed By: #### D RUGRPD ####[facility] [address] [place], [place] [address]Dr. Sandi [facility] NINO Negative Normal NEGATIVE [facility] Comment on above: Performed By: #### D RUGRPD ####[facility] [address] [place], [place] [address]Dr. [facility] CUT-OFFS SEE BELOW Normal [facility] Comment on above: Result Comment: AMP (Amphetamine): 500ng/mL, BAR (Barbituates): 200 ng/mL, BZO (Benzodiazepines): 150 ng/mL, BUP (Buprenorphine): 10 ng/mL, NINO (Cocaine): 150 ng/mL, mAMP (Methamphetamine): 500 ng/mL, MTD (Methadone): 200 ng/mL, OPI (Opiates): 100 ng/mL, OXY (Oxycodone): 100 ng/mL, PCP (Phencyclidine): 25 ng/mL, PPX (Propoxyphene): 300 ng/mL, THC (Cannabinoids): 50 ng/mL, TCA (Trycyclic Antidepressants): 300 ng/mL Performed By: #### D RUGRPD ####[facility] [address] [place], [place] [address]Dr. Sandi Michelle DRUG CUT HEADER DRUG CLASS TEST SYSTEM CUT-OFF CONCENTRATIONS ARE FOLLOWS: Normal [facility] Comment on above: Performed By: #### D RUGRPD ####[facility] [address] [place], [place] [address]Dr. Sandi Michelle mAMP Negative Normal NEGATIVE [facility] Comment on above: Performed By: #### D RUGRPD ####[facility] [address] [place], [place] [address]Dr. Sandi Michelle MTD Negative Normal NEGATIVE [facility] Comment on above: Performed By: #### D RUGRPD ####[facility] [address] [place], [place] [address]Dr. Sandi Michelle OPI Negative Normal NEGATIVE [facility] Comment on above: Performed By: #### D RUGRPD ####[facility] [address] [place], [place] [address]Dr. Sandi Michelle OXY Negative Normal NEGATIVE [facility] Comment on above: Performed By: #### D RUGRPD ####[facility] [address] [place], [place] [address]Dr. Sandi Michelle PCP Negative Normal NEGATIVE [facility] Comment on above: Performed By: #### D RUGRPD ####[facility] [address] [place], [place] [address]Dr. Sandi Michelle PPX Negative Normal NEGATIVE [facility] Comment on above: Performed By: #### D RUGRPD ####[facility] [address] [place], [place] [address]Dr. Sandi Michelle TCA Negative Normal NEGATIVE [facility] Comment on above: Performed By: #### D RUGRPD ####[facility] [address] [id number]. Sandi Michelle THC Negative Normal NEGATIVE [facility] Comment on above: Performed By: #### D RUGRPD ####[facility] [address] [place], [place] [address]Dr. Sandi Michelle TYPE AND SCREENon 06-04-2022 TYPE AND SCREEN Negative Normal [facility] Comment on above: Performed By: #### T NS ####[facility] [address] [place], [place] [address]Dr. Sandi Michelle US PREG BIOPHY W NON [...] RIGO FISCHER Date: 2022-05-30 08:30 Normal [facility] GROUP B STREP CULTUREon S. agalactiae Ag Ql (Unsp spec) Culture Observations: NEGATIVE FOR GROUP B STREPTOCOCCUS. Normal [facility] Comment on above: Performed By: #### G BSCX ####[facility] [address] [place], [place] [address]Dr. Sandi Michelle US PREG BIOPHY W NON [...] RIGO FISCHER Date: 2022-05-23 09:41 Normal [facility] US PREG BIOPHY W NON [...] RIGO FISCHER Date: 2022-05-16 16:10 Normal [facility] US PREG GROWTHon 05-11-2022 US PREG GROWTH EXAMINATION: US PREG GROWTH, US PREG CERVICAL LENGTH HISTORY: Excessive growth affecting management of mother COMPARISON: Ultrasound growth 04/27/2022 FINDINGS: Heart Rate: 137.8 bpm (accession [id number]), 167.3 bpm (accession [id number]) Number: 1.0 Position: BREECH Amniotic Fluid Volume: [...] TIFF BAUMANN Date: 2022-05-11 19:19 Normal [facility] US PREG GROWTHon 04-27-2022 US PREG [...] TIFF BAUMANN Date: 2022-04-27 20:51 Normal [facility] GLUCOSE - 1HRon 03-15-2022 Glucose [Mass/Vol] 137 mg/dL Critically high 74-106 T [facility] Comment on above: Performed By: #### C BC #### [facility] [address] [place] [address] Dr. Sandi Michelle HEMOGRAM AND PLATELon 2021 Hematocrit (Bld) [Volume fraction] 34.9 % Critically low 36.0-48.0 [facility] Comment on above: Performed By: #### C BC #### [facility] [address] [place] [address] Dr. Sandi Michelle Hemoglobin (Bld) [Mass/Vol] 11.5 g/dL Critically low 12.0-16.0 [facility] Comment on above: Performed By: #### C BC #### [facility] [address] [place] [address] Dr. Sandi Michelle MCH (RBC) [Entitic mass] 31.8 pg Normal 26.7-34.0 [facility] Comment on above: Performed By: #### C BC #### [facility] [address] [place] [address] Dr. Sandi Michelle MCHC (RBC) [Mass/Vol] 33.0 g/dL Normal 29.9-35.2 [facility] Comment on above: Performed By: #### C BC #### [facility] [address] [place] [address] Dr. Sandi Michelle MCV (RBC) [Entitic vol] 96.4 fL Normal 81.0-99.0 [facility] Comment on above: Performed By: #### C BC #### [facility] [address] [place] [address] Dr. Sandi Michelle PLT 225 103/ul Normal 150-450 [facility] Comment on above: Performed By: #### C BC #### [facility] [address] [place] [address] Dr. Sandi Michelle RBC 3.62 106/ul Critically low 4.20-5.40 [facility] Comment on above: Performed By: #### C BC #### [facility] [address] [place] [address] Dr. Sandi Michelle WBC 12.9 103/ul Critically high 4.0-11.0 [facility] Comment on above: Performed By: #### C BC #### [facility] [address] [place] [address] Dr. Sandi Michelle CHLAMYDIA/GONOCOCCUS ALETHEA ( AB/URINE/PAPon 02-04-2022 Chlamydia trachomatis, ALETHEA Negative Normal Negative [facility] Comment on above: Performed By: #### C T/NGNA #### [facility] [address] [place] [address] Dr. Sandi Michelle Neisseria gonorrhoeae, ALETHEA Negative Normal Negative [facility] Comment on above: Performed By: #### C T/NGNA #### [facility] [address] [place] [address] Dr. Sandi Michelle PAP ACOG PANEL 2: 30 to 65on 02-04-2022 . . Normal [facility] Comment on above: Result Comment: Perf ormed at: WB Performed By: #### [id number] ####[facility] [address] [address]DrDen Michelle Age Gdln ACOG Testing 30-65 Normal [facility] Comment on above: Performed By: #### 4 [id number] ####[facility] [address] [address]DrDen Michelle DIAGNOSIS: Comment Normal [facility] Comment on above: Result Comment: NEGA TIVE FOR INTRAEPITHELIAL LESION OR MALIGNANCY. Performed at: WB Performed By: #### 4 [id number] ####[facility] [address] [address]DrDen Michelle HPV Aptima Negative Normal Negative [facility] Comment on above: Result Comment: This nucleic acid amplification test detects fourteen high-risk HPV types (16,18,31,33,35,39,45,51,52,56,58,59,66,68) without differentiation. Performed at: =G Performed By: #### 4 [id number] ####[facility] [address] [place], [place] [address]DrDen Michelle Methodology: Comment Normal [facility] Comment on above: Result Comment: This liquid based ThinPrep(R) pap test was screened with the use of an image guided system. Performed at: WB Performed By: #### 4 [id number] ####[facility] [address] [address]DrDen Michelle Note: Comment Normal [facility] Comment on above: Result [...] Performed at: WB Performed By: #### 4 [id number] ####[facility] [address] [address]DrDne Michelle Performed by: Comment Normal [facility] Comment on above: Result Comment: Vikas Mcclellan, Medical Director Occupational Health (ASCP) Performed at: WB Performed By: #### 4 [id number] ####[facility] [address] [address]Dr. Sandi Michelle Specimen adequacy: Comment Normal [facility] Comment on above: Result Comment: Sati sfactory for evaluation. No endocervical component is identified. Performed at: WB Performed By: #### 4 [id number] ####[facility] [address] [id number]. Sandi Michelle VAGINITIS/VAGINOSIS DNA PROB Nicholas 02-03-2022 Kaitlynn species Negative Normal Negative [facility] Comment on above: Performed By: #### V AGINT ####[facility] [address] [address]Dr. Sandi Michelle Gardnerella vaginalis Negative Normal Negative [facility] Comment on above: Performed By: #### V AGINT ####[facility] [address] [address]Dr. Sandi Michelle Trichomonas vaginalis Negative Normal Negative [facility] Comment on above: Performed By: #### V AGINT ####[facility] [address] [address]Dr. Sanid Michelle US PREG ANATOMY SINGLEon US PREG [...] RIGO FISCHER Date: 2022-02-01 19:32 Normal [facility] AFP MATERNAL FOR SPINA BIFID Aon 01-21-2022 AFP MoM 1.24 Normal [facility] Comment on above: Performed By: #### A FPMAT ####[facility] [address] [address]Dr. Sandi [facility] AFP Value 55.2 ng/mL Normal [facility] Comment on above: Performed By: #### A FPMAT ####[facility] [address] [id number]. Sandi Michelle AFP, Serum for Spina Bifida Report Normal [facility] Comment on above: Performed By: #### A FPMAT ####[facility] [address] [address]Dr. Sandi Michelle Comment Comment Normal [facility] Comment on above: Result Comment: Iesha Sullivan, Ph.D., [facility] Director . References: Available Upon Request. . Multiples Of Median Cutoffs For AFP Elevations Bhandari 2.5 Black 2.8 IDD 2.0 Twins 4.5 Abbreviation Definitions IDD - Insulin Dep Diabetes OSBR - Open Spina Bifida Risk . For further inquiries contact [employer] at [phone]. . This test was developed and its performance characteristics determined by [facility]. It has not been cleared or approved by the Food and Drug Administration. Performed By: #### A FPMAT ####[facility] [address] [id number]. Sandi Michelle Gest Age Collection Date 18.1 weeks Normal [facility] Comment on above: Performed By: #### A FPMAT ####[facility] [address] [id number]. Sandi Michelle Gestat, Age Based on JOSE [facility] Comment on above: Result Comment: 05/26 Recalculations are not recommended when gestational dating by LMP and ultrasound are within 10 days. Performed By: #### A FPMAT ####[facility] [address] [id number]. Sanjuanitasonia Michelle Insulin Dep Diabetes Comment Normal [facility] Comment on above: Result Comment: Not provided. . Performed By: #### A FPMAT ####[facility] [address] [id number]. Sanjuanitasonia Michelle Interpretation Comment Normal [facility] Comment on above: Result [...] Customer Services to discuss available options. The [employer] recommends amniocentesis be offered to women age 35 and older. Performed By: #### A FPMAT ####[facility] [address] [phone]. Sanjuanitasonia Michlele Maternal Age at JOSE 32.[address] [facility] Comment on above: Performed By: #### A FPMAT ####[facility] [address] [place], [place] [address]Bb. Sandi Michelle Multiple Gestation No Normal [facility] Comment on above: Performed By: #### A FPMAT ####[facility] [address] [id number]. Sandi Michelle OSBR Risk 1 [place] 5748 Normal [facility] Comment on above: Performed By: #### A FPMAT ####[facility] [address] [phone]. Sandi Michelle PDF . Normal [facility] Comment on above: Performed By: #### A FPMAT ####[facility] [address] [address]Dr. Sandi Michelle Race Normal [facility] Comment on above: Performed By: #### A FPMAT ####[facility] [address] [address]DrDen Michelle Test Results: Negative Normal [facility] Comment on above: Performed By: #### A FPMAT ####[facility] [id number] [address]DrDen Michelle HEP B SURFACE ANTIGEN SCREEN on 11-22-2021 HBsAg Screen Negative Normal Negative [facility] Comment on above: Performed By: #### H BSANS ####[facility] [address] [address]DrDen Michelle HEPATITIS C VIRUS AB W/ REFL EX QUANTon 11-22-2021 HCV AB 0.1 s/co ratio Normal 0.0-0.9 [facility] Comment on above: Performed By: #### C BC #### [facility] [address] [address] [address] Sandi Michelle Interpretation: Comment Normal [facility] Comment on above: Result Comment: Nega tive Not infected with HCV, unless recent infection is suspected or other evidence exists to indicate HCV infection. Performed By: #### C BC #### [facility] [address] [place] [address] Dr. Sandi Michelle HIV 1 AND 2 WITH REFLEXon HIV Screen 4th Generation wRfx Non-Reactive Normal Non Reactive [facility] Comment on above: Result Comment: HIV Negative HIV-1/HIV-2 antibodies and HIV-1 p24 antigen were NOT detected. There is no laboratory evidence of HIV infection. Performed By: #### H IV12 ####[facility] [id number] [address]Dr. Sandi Michelle RPR QUANTon 11-22-2021 Rapid Plasma Reagin, Quant Non-Reactive Normal NonRea<1:1 [facility] Comment on above: Result [...] utilized, such as Treponema pallidum (Syphilis) Screening Hettinger (120513) or Rapid Plasma Reagin (RPR) Test With Reflex to Quantitative RPR and Confirmatory Treponema pallidum Antibodies (448127). Performed By: #### C BC #### [facility] [address] [place] [address] Dr. Sandi Michelle RUBELLA AB IGGon 11-22-2021 Rubella Antibodies, IgG 9.33 index Normal Immune >0.99 [facility] Comment on above: Result Comment: Non- immune <0.90 Equivocal 0.90 - 0.99 Immune >0.99 Performed By: #### C BC #### [facility] [address] [place] [address] Dr. Sandi Michelle CBC AUTO DIFFon 11-21-2021 BASO # 0.0 103/ul Normal 0.0-0.1 [facility] Comment on above: Performed By: #### C BC #### [facility] [address] [place] [address] Dr. Sandi Michelle Basophils/100 WBC (Bld) 0.4 % Normal 0.2-2.0 [facility] Comment on above: Performed By: #### C BC #### [facility] [address] [place] [address] Dr. Sandi Michelle EO # 0.1 103/ul Normal 0.0-0.7 [facility] Comment on above: Performed By: #### C BC #### [facility] [address] [place] [address] Dr. Sandi Michelle Eosinophils/100 WBC (Bld) 0.6 % Critically low 0.9-7.0 [facility] Comment on above: Performed By: #### C BC #### [facility] [address] [place] [address] Dr. Sandi Michelle Erythrocyte distribution width (RBC) [Ratio] 11.9 % Normal 11.0-15.0 [facility] Comment on above: Performed By: #### C BC #### [facility] [address] [place] [address] Dr. Sandi Michelle Hematocrit (Bld) [Volume fraction] 37.1 % Normal 36.0-48.0 [facility] Comment on above: Performed By: #### C BC #### [facility] [address] [place] [address] Dr. Sandi Michelle Hemoglobin (Bld) [Mass/Vol] 12.2 g/dL Normal 12.0-16.0 [facility] Comment on above: Performed By: #### C BC #### [facility] [address] [place] [address] Dr. Sandi Michelle IG # 0.03 10e3/ul Normal 0.00-0.03 [facility] Comment on above: Performed By: #### C BC #### [facility] [address] [place] [address] Dr. Sandi Michelle IG % 0.4 % Normal 0.0-0.5 [facility] Comment on above: Performed By: #### C BC #### [facility] [address] [place] [address] Dr. Sandi Michelle LYMPH # 1.8 103/ul Normal 1.2-3.8 [facility] Comment on above: Performed By: #### C BC #### [facility] [address] [place] [address] Dr. Sandi Michelle Lymphocytes/100 WBC (Bld) 23.4 % Normal 20.5-60.0 [facility] Comment on above: Performed By: #### C BC #### [facility] [address] [place] [address] Dr. Sandi Michelle MANUAL DIFF REQ NO Normal [facility] Comment on above: Performed By: #### C BC #### [facility] [address] [place] [address] Dr. Sandi Michelle MCH (RBC) [Entitic mass] 31.4 pg Normal 26.7-34.0 [facility] Comment on above: Performed By: #### C BC #### [facility] [address] [place] [address] Dr. Sandi Michelle MCHC (RBC) [Mass/Vol] 32.9 g/dL Normal 29.9-35.2 [facility] Comment on above: Performed By: #### C BC #### [facility] [address] [place] [address] Dr. Sandi Michelle MCV (RBC) [Entitic vol] 95.6 fL Normal 81.0-99.0 [facility] Comment on above: Performed By: #### C BC #### [facility] [address] [place] [address] Dr. Sandi Michelle MONO # 0.5 103/ul Normal 0.3-0.8 [facility] Comment on above: Performed By: #### C BC #### [facility] [address] [place] [address] Dr. Sandi Michelle Monocytes/100 WBC (Bld) 6.6 % Normal 1.7-12.0 [facility] Comment on above: Performed By: #### C BC #### [facility] [address] [place] [address] Dr. Sandi Michelle NEUT # 5.4 103/ul Normal 1.4-6.5 [facility] Comment on above: Performed By: #### C BC #### [facility] [address] [place] [address] Dr. Sandi Michelle Neutrophils/100 WBC (Bld) 68.6 % Normal 43.0-75.0 [facility] Comment on above: Performed By: #### C BC #### [facility] [address] [place] [address] Dr. Sandi Michelle Platelet mean volume (Bld) [Entitic vol] 10.1 fL Normal 9.5-13.5 [facility] Comment on above: Performed By: #### C BC #### [facility] [address] [address] [address] Sandi Michelle PLT 237 103/ul Normal 150-450 [facility] Comment on above: Performed By: #### C BC #### [facility] [address] [address] [address] Sandi Michelle RBC 3.88 106/ul Critically low 4.20-5.40 [facility] Comment on above: Performed By: #### C BC #### [facility] [address] [address] [address] Sandi Michelle WBC 7.9 103/ul Normal 4.0-11.0 [facility] Comment on above: Performed By: #### C BC #### [facility] [address] [address] [address] Sandi Michelle CULTURE URINEon 11-21-2021 CULTURE URINE Culture Observations : LIGHT GROWTH OF MIXED GENITAL MENDEZ. NO POTENTIAL PATHOGENS SEEN. Normal [facility] Comment on above: Performed By: #### U RCX #### [facility] [address] [address] [address] Sandi Michelle GLYCOHEMOGLOBIN A1Con 2021 ADA RECOMMENDATION SEE BELOW Normal [facility] Comment on above: Result Comment: ADA RECOMMENDED LIMIT 4.0 - 6.0 ADA THERAPEUTIC TARGET < 7.0 ACTION SUGGESTED > 7.0 Performed By: #### A 1C ####[facility] [address] [address]Dr. Sandi Michelle Glucose [Mass/Vol] 103 mg/dL Normal [facility] Comment on above: Performed By: #### A 1C ####[facility] [address] [id number]. Sandi Michelle HbA1c (Bld) [Mass fraction] 5.2 % Normal 4.5-6.2 [facility] Comment on above: Performed By: #### A 1C ####[facility] [address] [place], [place] [address]BzDr. Sandi Michelle TYPE AND SCREENon 11-21-2021 TYPE AND SCREEN Negative Normal [facility] Comment on above: Performed By: #### T NS #### [facility] [address] [address] [address] Sandi Michelle US PREG TVon 11-03-2021 [...] TIFF BAUMANN Date: 2021-11-03 07:19 Normal [facility] PREG QUANT HCGon 10-14-2021 HCG QUANT 469 mIU/mL Normal [facility] Comment on above: Performed By: #### P REGQNT #### [facility] [address] [place] [address] Dr. Sandi Michelle HCG RANGE SEE BELOW Normal [facility] Comment on above: Result Comment: 5-50 0-1 WEEK 40-300 1-2 WEEKS 100-1,000 2-3 WEEKS 500-6,000 3-4 WEEKS 5,000-200,000 1-2 MONTHS 10,000-100,000 2-3 MONTHS 3,000-50,000 2ND TRIMESTER 1,000-50,000 3RD TRIMESTER Performed By: #### P REGQNT #### [facility] [address] [id number] Sandi Michelle PREG QUANT HCGon 10-12-2021 HCG QUANT 184 mIU/mL Normal [facility] Comment on above: Performed By: #### C BC #### [facility] [address] [place], [place] [address] Dr. Sandi Michelle HCG RANGE SEE BELOW Normal [facility] Comment on above: Result Comment: 5-50 0-1 WEEK 40-300 1-2 WEEKS 100-1,000 2-3 WEEKS 500-6,000 3-4 WEEKS 5,000-200,000 1-2 MONTHS 10,000-100,000 2-3 MONTHS 3,000-50,000 2ND TRIMESTER 1,000-50,000 3RD TRIMESTER Performed By: #### C BC #### [facility] [address] [place], [place] [address] Dr. Sandi Michelle PROTEIN C FUNC ACTIVITYon Prt C Activity (Chromogenic) 130 % Normal [facility] Comment on above: Result Comment: Refe rence Range: 17 years and older: 73 - 180 Effective August 10, 2021 Prt C Activity, (Chromogenic) will be made non-orderable. This will not affect any profile that includes Prt C Activity (Chromogenic). [facility] offers 277272 Protein C Functional. For more information please contact your local [facility]. Performed By: #### P RCACT ####[facility] [address] [place], [place] [address]VtDr. Sandi Michelle FACTOR V LEIDEN MUTATION CIARAN LYSISon 07-27-2021 Factor V Leiden Comment Normal [facility] Comment on above: Result Comment: Resu lt: c.1601G>A (p.Cvc849Cls) - Not Detected . This result is not associated with an increased risk for venous thromboembolism. See Additional Clinical Information and Comments. Additional Clinical Information: Venous thromboembolism is a multifactorial disease influenced by genetic, environmental, and circumstantial risk factors. The c.1601G>A (p. Hby638Vjm) variant in the F5 gene, commonly referred [...] c.*97G>A variant and Factor V Leiden (PMID: 41494818). Additional risk factors include but are not [...] health care providers to discuss results at [phone] ([phone]). . Test Details: Variant Analyzed: c.1601G>A (p. Euk800Ojy), referred to as Factor V Leiden . [...] developed and its performance characteristics determined by [facility]. It has not been cleared or approved by the Food and Drug Administration. . References: Masoud S, Hawa AK, Randy R, Moses WW, Luis A JH; ACMG Professional Practice and Guidelines Committee. Addendum: [employer] consensus statement on factor V Leiden mutation testing. [place] [facility]. 2020Sep 26. doi: 10.1038/y64173-168-01395-a. PMID: 75555994. . Miriam GAMING. Factor V Leiden Thrombophilia. 1998December 05 [Updated 2017Jul 28]. In: Jv MP, Delia HH, Pagon RA, et al., editors. Jovita(Wale) [Internet]. Rogers (MD): [facility], [place]; [phone]. Available from: https://www.ncbi.nlm.nih.gov/books/AMT3119/ . Jonh S, Hawa AK, Francisco Javier X, Leobardo B, Ash EB, Deysi P, Mari CS; [facility] Laboratory Batch Freezer Committee. Venous thromboembolism laboratory testing (factor V Leiden and factor II c.*97G>A), 2018 update: a technical standard of the [employer] (ACMG). [place] [facility]. 2018 Jun;20(12):7003-3311. doi: 10.1038/g99434-481-8629-t. Epub 2017Apr 28. PMID: 01892551. . Martha Guillen, PhD, FAC Lindsay Jaquez, PhD, FACMG Pete Brown, PhD, FAC Geronimo Mcdaniel, PhD, FAC W Khushbu Hays, PhD, FAC Maureen Mancilla, PhD, [facility] Performed By: #### F VPCR ####[facility] [address] [address]Dr. Sandi Michelle ANTITHROMBIN ACTIVITYon Antithrombin Activity 102 % Normal 75-135 [facility] Comment on above: Result Comment: Dire ct Xa inhibitor anticoagulants such as rivaroxaban, apixaban and edoxaban will lead to spuriously elevated antithrombin activity levels possibly masking a deficiency. Performed By: #### C BC #### [facility] [address] [address] [address] Sandi Michelle B-2 GLYCOPROTEIN AB IGGon Beta-2 Glycoprotein I Ab, IgG <9 Normal 0-20 [facility] Comment on above: Result Comment: The reference interval reflects a 3SD or 99th percentile interval, which is thought to represent a potentially clinically significant result in accordance with the International Consensus Statement on the classification criteria for definitive antiphospholipid syndrome (APS). J Thromb Haem 2006;4:295-306. Performed By: #### B 2GPG ####[facility] [address] [address]Dr. Sandi Michelle B2-GLYCOPROTEIN 1 AB IGMon 0 07-25-2021 Beta-2 Glycoprotein I Ab, IgM <9 Normal 0-32 [facility] Comment on above: Result Comment: The reference interval reflects a 3SD or 99th percentile interval, which is thought to represent a potentially clinically significant result in accordance with the International Consensus Statement on the classification criteria for definitive antiphospholipid syndrome (APS). J Thromb Haem 2006;4:295-306. Performed By: #### B GLYIGM ####[facility] [address] [place], [place] [address]Dr. Sandi Michelle LUPUS ANTICOAGULANT W/REFLEX on 07-24-2021 aPTT Coag (Bld) [Time] 30.9 s Normal 0.0-51.9 [facility] Comment on above: Performed By: #### L UPUSRF ####[facility] [address] [place], [place] [address]Dr. Sandi Michelle dRVVT 33.0 sec Normal 0.0-47.0 [facility] Comment on above: Performed By: #### L UPUSRF ####[facility] [address] [place], [place] [address]Dr. Sandi Michelle Interpretation Comment: Normal The [facility] Comment on above: Result Comment: No l upus anticoagulant was detected. Performed By: #### L UPUSRF ####[facility] [address] [place], [place] [address]Dr. Sandi Michlele PROTEIN S ANTIGENon 07-24-20 21 Protein S, Free 104 % Normal 61-136 [facility] Comment on above: Performed By: #### P RTSAG ####[facility] [address] [address]Dr. Sandi Michelle Protein S, Total 90 % Normal 60-150 [facility] Comment on above: Result Comment: This test was developed and its performance characteristics determined by [facility]. It has not been cleared or approved by the Food and Drug Administration. Performed By: #### P RTSAG ####[facility] [address] [place], [place] [address]Dr. Sandi Michelle PROTEIN S, FUNCTIONALon 12-3 Protein S-Functional 107 % Normal 63-140 [facility] Comment on above: Result Comment: Prot ein S activity may be falsely increased (masking an abnormal, low result) in patients receiving direct Xa inhibitor (e.g., rivaroxaban, apixaban, edoxaban) or a direct thrombin inhibitor (e.g., dabigatran) anticoagulant treatment due to assay interference by these drugs. Performed By: #### C BC #### [facility] [address] [address] [address] Sandi Michelle ANTICARDIOLIPIN AB (JEANIE) IGG on 07-23-2021 Anticardiolipin Ab,IgG,Qn <9 Normal 0-14 [facility] Comment on above: Result Comment: Nega tive: <15 Indeterminate: 15 - 20 Low-Med Positive: >20 - 80 High Positive: >80 Performed By: #### C ARDLIP #### [facility] [address] [address] [address] Sandi Michelle ANTICARDIOLIPIN AB (JEANIE) IGM on 07-23-2021 Anticardiolipin Ab,IgM,Qn 12 MPL U/mL Normal 0-12 [facility] Comment on above: Result Comment: Nega tive: <13 Indeterminate: 13 - 20 Low-Med Positive: >20 - 80 High Positive: >80 Performed By: #### C ARDIGM ####[facility] [address] [address]Dr. Sandi Michelle Vital Signs Date Time Vital Sign Value Performing Clinician Facility 09-26-2024 11:02-0500 Body mass index (BMI) [Ratio] 30.63 kg/m2 Vocation DO Work Phone: [facility] 09-26-2024 11:02-0500 Body weight 86.09 kg [email or web address] Work Phone: [facility] 09-26-2024 11:02-0500 Diastolic blood pressure 76 mm[Hg] [email or web address] Work Phone: [facility] 09-26-2024 11:02-0500 Systolic blood pressure 116 mm[Hg] Lee Keyona DO Work Phone: [facility] 09-12-2024 14:53-0500 Body mass index (BMI) [Ratio] 30.02 kg/m2 Lee Keyona DO Work Phone: [facility] 09-12-2024 14:53-0500 Body weight 84.37 kg Lee Keyona DO Work Phone: [facility] 09-12-2024 14:53-0500 Diastolic blood pressure 70 mm[Hg] Lee Keyona DO Work Phone: [facility] 09-12-2024 14:53-0500 Systolic blood pressure 120 mm[Hg] Lee Keyona DO Work Phone: [facility] 08-29-2024 15:30-0500 Body mass index (BMI) [Ratio] 29.92 kg/m2 Lee Keyona DO Work Phone: [facility] 08-29-2024 15:30-0500 Body weight 84.1 kg Lee Keyona DO Work Phone: [facility] 08-29-2024 15:30-0500 Diastolic blood pressure 70 mm[Hg] Lee Keyona DO Work Phone: [facility] 08-29-2024 15:30-0500 Systolic blood pressure 120 mm[Hg] Lee Keyona DO Work Phone: [facility] 08-09-2024 09:39-0500 Body mass index (BMI) [Ratio] 30.18 kg/m2 Lee Keyona DO Work Phone: [facility] 08-09-2024 09:39-0500 Body weight 84.82 kg Lee Keyona DO Work Phone: [facility] 08-09-2024 09:39-0500 Diastolic blood pressure 64 mm[Hg] Lee Keyona DO Work Phone: [facility] 08-09-2024 09:39-0500 Systolic blood pressure 114 mm[Hg] Lee Keyona DO Work Phone: [facility] 07-12-2024 09:59-0500 Body mass index (BMI) [Ratio] 29.39 kg/m2 Lee Keyona DO Work Phone: [facility] 07-12-2024 09:59-0500 Body weight 82.61 kg Lee Keyona DO Work Phone: [facility] 07-12-2024 09:59-0500 Diastolic blood pressure 68 mm[Hg] Lee Keyona DO Work Phone: [facility] 07-12-2024 09:59-0500 Systolic blood pressure 108 mm[Hg] Lee Keyona DO Work Phone: [facility] 06-11-2024 16:44-0500 Body mass index (BMI) [Ratio] 28.59 kg/m2 Lee Keyona DO Work Phone: [facility] 06-11-2024 16:44-0500 Body weight 80.34 kg Lee Keyona DO Work Phone: [facility] 06-11-2024 16:44-0500 Diastolic blood pressure 70 mm[Hg] Lee Keyona DO Work Phone: [facility] 06-11-2024 16:44-0500 Systolic blood pressure 108 mm[Hg] Lee Keyona DO Work Phone: [facility] 05-08-2024 15:11-0400 Body mass index (BMI) [Ratio] 27.76 kg/m2 Lee Keyona DO Work Phone: [facility] 05-08-2024 15:11-0400 Body weight 78.02 kg Lee Keyona DO Work Phone: [facility] 05-08-2024 15:11-0400 Diastolic blood pressure 70 mm[Hg] Lee Keyona DO Work Phone: [facility] 05-08-2024 15:11-0400 Systolic blood pressure 112 mm[Hg] Lee Keyona DO Work Phone: [facility] 04-05-2024 14:24-0400 Body mass index (BMI) [Ratio] 27.76 kg/m2 [facility] 04-05-2024 14:24040 Body weight 78.02 kg Noms Nurse [facility] 04-05-2024 14:240400 Diastolic blood pressure 68 mm[Hg] [facility] 04-05-2024 14:040 Systolic blood pressure 118 mm[Hg] [facility] 01-21-2022 03:06040 Body weight 72.[address] LEE RAND [facility] Comment on above: Performed By: #### A FPMAT ####[facility] [address] [place], [place] [address]BdDr. Sandi Michelle Encounters Encounter Date Encounter Type Care Provider Facility Start: 09-26-2024 End: 09-26-2024 Bamboo flowsheet Lee Keyona DO Work Phone: [facility] Start: 09-26-2024 End: 09-26-2024 [...] flow sheet Lee Keyona DO Work Phone: [facility] Comment on above: Second trimester [...] Result Encounter Lee Keyona DO Work Phone: [facility] External Department Unsolicited Start: 07-12-2024 End: 07-12-2024 Bamboo flowsheet Lee Keyona DO Work Phone: [facility] Start: 07-12-2024 End: 07-12-2024 Bamboo flowsheet Lee Keyona DO Work Phone: [facility] Start: 07-12-2024 End: 07-12-2024 flow sheet Lee Keyona DO Work Phone: [facility] Comment on above: Second trimester [...] Routine [facility] [address] [place] [address] Lee Rand, DO [address] [place] [address] [facility] Start: 09-26-2024 End: 09-26-2024 Patient encounter procedure [facility] Comment on above: Arrived Start: 09-12-2024 End: 09-12-2024 Patient encounter procedure 09/12/2024 2:30 PM EST Routine [facility] [address] [place] [address] Lee Rand, DO [address] [place], [place] [id number] [facility] Start: 08-29-2024 End: 08-29-2024 Patient encounter procedure [facility] Comment on above: Arrived Start: 08-29-2024 End: 08-29-2025 US biophysical profile w non stress test US biophysical profile w non stress test Imaging Routine Diet controlled gestational diabetes mellitus (GDM) in third trimester Expected: 08/29/2024 (Approximate), Expires: 08/29/2025 [facility] Work Phone: Comment on above: Expected: 08/29/2024 (Approximate), Expires: 08/29/2025 Start: 08-09-2024 End: 08-09-2024 Patient encounter procedure 08/09/2024 9:10 AM EST Routine [facility] [address] [facility] [place] [place] [address] Lee Rand, DO [address] [place] [address] [facility] Start: 07-31-2024 End: 07-31-2024 Patient encounter procedure 07/31/2024 1:00 PM EST Office Visit [facility] [address] [facility] [place] [place] [address] Lee Rand, DO [address] [place] [address] [facility] Start: 07-12-2024 End: 07-12-2025 CBC panel - Blood by Automated count CBC Lab Routine Diabetes mellitus screening Expected: 07/12/2024 (Approximate), Expires: 07/12/2025 [facility] Work Phone: Comment on above: Expected: 07/12/2024 (Approximate), Expires: 07/12/2025 Start: 07-12-2024 End: 07-12-2025 Measurement of glucose 1 hour after glucose challenge for glucose tolerance test Glucose tolerance, 1 hour Lab Routine Diabetes mellitus screening Expected: 07/12/2024 (Approximate), Expires: 07/12/2025 [facility] Comment on above: Expected: 07/12/2024 (Approximate), Expires: 07/12/2025 Start: 07-12-2024 End: 07-12-2024 Patient encounter procedure [facility] Comment on above: Arrived Start: 06-11-2024 End: 06-11-2024 Patient encounter procedure 06/11/2024 3:50 PM EST Routine [facility] [address] [facility] [place] [id number] Lee Rand, [address] [place] [address] [facility] Start: 06-11-2024 End: 12-09-2024 Alpha fetoprotein, maternal Alpha fetoprotein, maternal Lab Routine Second trimester Expected: 06/11/2024 (Approximate), Expires: 12/09/2024 [facility] Comment on above: Expected: 06/11/2024 (Approximate), Expires: 12/09/2024 Start: 06-11-2024 End: 06-11-2025 US for US OB ANATOMY SINGLE W US OB CERVICAL LENGTH Imaging Routine Screening, , for anatomic survey Expected: 06/11/2024 (Approximate), Expires: 06/11/2025 [facility] Comment on above: Expected: [...] age Expected: 04/05/2024 (Approximate), Expires: 04/05/2025 [facility] Comment on above: Expected: 04/05/2024 (Approximate), Expires: 04/05/2025 Start: 04-05-2024 End: 04-05-2025 US Pelvis transvaginal US OB transvaginal Imaging Routine Missed menses Expected: 04/05/2024 (Approximate), Expires: 04/05/2025 [facility] Comment on above: Expected: 04/05/2024 (Approximate), Expires: 04/05/2025 Bacteria identified in Urine by Culture Urine culture Microbiology Routine Missed menses Ordered: 04/05/2024 [facility] Comment on above: Ordered: 04/05/2024 CBC W Auto Different ial panel - Blood CBC and differential Lab Routine Missed menses Ordered: 04/05/2024 [facility] Comment on above: Ordered: 04/05/2024 CHLAMYDIA TRACHOMATI S (GENITO/STI) CHLAMYDIA TRACHOMATIS (GENITO/STI) Lab Routine STD exposure Ordered: 06/11/2024 [facility] Comment on above: Ordered: 06/11/2024 Hemoglobin A1c/Hemoglobin.total in Blood Hemoglobin A1c Lab Routine Missed menses Ordered: 04/05/2024 [facility] Comment on above: Ordered: 04/05/2024 Hepatitis B virus surface Ag [Presence] in Serum or Plasma by Immunoassay Hepatitis B surface antigen Lab Routine Missed menses Ordered: 04/05/2024 [facility] Comment on above: Ordered: 04/05/2024 Hepatitis C virus Ab [Presence] in Serum or Plasma by Immunoassay Hepatitis C antibody Lab Routine Missed menses Ordered: 04/05/2024 [facility] Comment on above: Ordered: 04/05/2024 HIV-1/HIV-2 antigen/antibody combination immunoassay HIV-1 and HIV-2 antibodies Lab Routine Missed menses Ordered: 04/05/2024 [facility] Comment on above: Ordered: 04/05/2024 Neisseria gonorrhoea e DNA [Presence] in Unspecified specimen by ALETHEA with probe detection Neisseria gonorrhea DNA probe, direct Lab Routine STD exposure Ordered: 06/11/2024 [facility] Comment on above: Ordered: 06/11/2024 Reagin Ab [Presence] in Serum by RPR RPR Lab Routine Missed menses Ordered: 04/05/2024 [facility] Comment on above: Ordered: 04/05/2024 Rubella antibody, IgG Rubella an tibody, IgG Lab Routine Missed menses Ordered: 04/05/2024 [facility] Comment on above: Ordered: 04/05/2024 SURESWAB(R) ADVANCED VAGINITIS PLUS, TMA SURESWAB(R) ADVANCED VAGINITIS PLUS, TMA Pathology and Cytology Routine Vaginal discharge Ordered: 06/11/2024 [facility] Work Phone: Comment on above: Ordered: 06/11/2024 Payers Date Payer Category Payer [facility] Health Insurance [employer] [id number] 2024 Unknown [id number] 2020 Managed Care HMO (unspecified) [id number] 1991 Unknown [id number] 2.16.840.1.243291.3.579.2. 593 1991 Unknown [id number] 2.16.840.1.306505.3.579.2. 593 1991 Unknown [id number] 2.16.840.1.338396.3.579.2. 593 1991 Unknown [id number] 2.16.840.1.175349.3.579.2. 593 1991 Unknown [id number] 2.16.840.1.508191.3.579.2. 593 1991 Unknown [id number] 2.16.840.1.945948.3.579.2. 593 1991 Unknown [id number] 2.16.840.1.292568.3.579.2. 593 1991 Unknown [id number] 2.16.840.1.608807.3.579.2. 593 1991 Unknown [id number] 2.16.840.1.213824.3.579.2. 593 1991 Unknown [id number] 2.16.840.1.342511.3.579.2. 593 1991 Unknown [id number] 2.16.840.1.728467.3.579.2. 593 1991 Unknown [id number] 2.16.840.1.866908.3.579.2. 593 1991 Unknown [id number] 2.16.840.1.912730.3.579.2. 593 1991 Unknown [id number] 2.16.840.1.322768.3.579.2. 593 1991 Unknown [id number] 2.16.840.1.756691.3.579.2. 593 1991 Unknown [id number] 2.16.840.1.951269.3.579.2. 593 1991 Unknown [id number] 2.16.840.1.211997.3.579.2. 593 1991 Unknown [id number] 2.16.840.1.629599.3.579.2. 593 1991 Unknown [id number] 2.16.840.1.276267.3.579.2. 593 1991 Unknown [id number] 2.16.840.1.039073.3.579.2. 593 1991 Unknown [id number] 2.16.840.1.804274.3.579.2. 593 1991 Unknown [id number] 2.16.840.1.651274.3.579.2. 1259 1991 Unknown [id number] 2.16.840.1.662349.3.579.2. 1259 1991 Unknown [id number] 2.16.840.1.253642.3.579.2. 1259 1991 Unknown [id number] 2.16.840.1.917611.3.579.2. 9 1991 Unknown [id number] 2.16.840.1.023823.3.579.2. 1259 1991 Unknown [id number] 2.16.840.1.554208.3.579.2. 9 1991 Unknown [id number] 2.16.840.1.687285.3.579.2. 1259 1991 Unknown [id number] 2.16.840.1.543602.3.579.2. 9 1991 Unknown [id number] 2.16.840.1.102282.3.579.2. 1259 1991 Unknown [id number] 2.16.840.1.665693.3.579.2. 1259 1959 Private Health Insurance [id number] Social History Date Type Detail Facility Start: 02-08-2023 Tobacco smoking stat [facility] Never smoked tobacco [facility] Start: 02-08-2023 Tobacco use and exposure Smokeless t obacco non-user [facility] Start: 04-05-2024 End: 09-12-2024 Alcoholic beverage intake Lifetime non-drinker (finding) [facility] Start: 07-19-2023 End: 01-02-2024 History of Social function [facility] Start: 07-19-2023 End: 01-02-2024 Tobacco use panel [facility] Start: 02-18-2024 [facility] Kory jules Start: 1990 Sex assigned at Female [facility] Start: 02-06-2023 Gender identity Identifies as female gender (finding) [facility] Start: 02-06-2023 Sexual orientation Heterosexual (fin ding) [facility] Medical Equipment Procedure Code Equipment Code Equipment Origin al Text Equipment Identifier Dates 1 strip by In Vi tro route Daily Use in the morning prior to breakfast, 1 hour after each meal for a total of 4times daily. [id number] Start: 08-09-2024 End: 09-12-2024 1 each by In Vit ro route Daily Use to check FSBS four times daily [id number] Start: 08-09-2024 End: 09-12-2024 Goals Date Patient Goal Desired Activity /State Personal health goal Clinical Notes 06-04-2022 to 09-26-2024 Tere Hu, [facility] - 09/26/2024 11:10 AM David Hu, [facility] - 09/12/2024 2:30 PM David Hu, [facility] - 08/29/2024 3:20 PM Corbin Parsons, [facility] - 08/09/2024 9:10 AM EST Note Date [...] nursing note reviewed. Exam conducted with a crane helper present. Vitals: Estimated body mass index is [...] kick counts three times a day. At [facility] pt found out VSD noted- pt to return to [facility] on 10/03 for echo. Orders Placed This Encounter Procedures POCT urinalysis dipstick manually resulted Follow Up: Patient is to return to office in 2 week for routine OB appointment. Documented by Tere Hu LPN on behalf of: Lee Rand DO documented in this encounter [facility] 09-12-2024 History of Presen t illness Narrative [...] nursing note reviewed. Exam conducted with a crane helper present. Vitals: Estimated body mass index is [...] Rand DO documented in this encounter [facility] 08-29-2024 History of Presen t illness Narrative [...] nursing note reviewed. Exam conducted with a crane helper present. Vitals: Estimated body mass index is [...] Rand DO documented in this encounter [facility] 08-09-2024 History of Presen t illness Narrative [...] nursing note reviewed. Exam conducted with a crane helper present. Vitals: Estimated body mass index is [...] Rand DO documented in this encounter [facility] 07-12-2024 History of Presen t illness Narrative [...] nursing note reviewed. Exam conducted with a crane helper present. Vitals: Estimated body mass index is [...] with patient and she is scheduled with [facility] for confirmation of complete placenta previa. Patient to return to clinic in 4 weeks for routine OB. Documented by Miranda Parsons LPN on behalf of: Lee Rand DO documented in this encounter [facility] 06-11-2024 History of Presen t illness Narrative [...] nursing note reviewed. Exam conducted with a crane helper present. Vitals: Estimated body mass index is [...] Rand DO documented in this encounter [facility] 05-08-2024 History of Presen t illness Narrative [...] nursing note reviewed. Exam conducted with a crane helper present. Vitals: Estimated body mass index is [...] or undercooked meat, and stay away [facility]. Patient has been consulted regarding any further do's and don'ts of . Patient voiced understanding and all questions and concerns were answered. Orders Placed This Encounter Procedures POCT urinalysis dipstick manually resulted Follow Up: Patient is to return in 4 weeks for routine OB appointment. Documented by Tere Hu LPN on behalf of: Lee Rand DO documented in this encounter [facility] 04-05-2024 History of Presen t illness Narrative [...] or undercooked meat, and stay away from [facility]. Patient has also been advised to [...] Janis Hylton documented in this encounter [facility] 06-04-2022 Note OPERATIVE NOTE OPERATION DATE: 06/04/2022 PROCEDURE: Primary low transverse section. PREOPERATIVE DIAGNOSIS: 1. Intrauterine at 37 5/7 weeks. 2. Breech presentation. POSTOPERATIVE DIAGNOSIS: 1. Intrauterine at 37 5/7 weeks. 2. Breech presentation. 3. 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 SURGEON: Lee Rand LINE DECORATOR: SCARLET Albert URINE OUTPUT: Yellow and clear. [...] the Recovery Room in stable condition. [facility] Evaluation note Diagnosis 13 weeks gestation [...] and content) DATE CREATED AUTHOR 06/14/2022 [facility] DATE CREATED AUTHOR AUTHOR'S ORGANIZ ATION 09/28/2024 [facility] EPIC Care Teams (unrecognized sec tion and content) Greenskeeper Relationship Specialty Start Date End Date Fito Cueto MD [address] [place] [id number] PCP - General Family Medicine 02/09/23 Greenskeeper Relationship Specialty Start Date End Date Fito Cueto MD [facility] [place] [address] PCP - General Family Medicine 02/09/23 Greenskeeper Relationship Specialty Start Date End Date Fito Cueto MD [address] [facility] [place] [address] PCP - General Family Medicine 02/09/23 Greenskeeper Relationship Specialty Start Date End Date Fito Cueto MD [address] [facility] [place] [address] PCP - General Family Medicine 02/09/23 Greenskeeper Relationship Specialty Start Date End Date Fito Cueto MD [address] [facility] [place] [address] PCP - General Family Medicine 02/09/23 Greenskeeper Relationship Specialty Start Date End Date Fito Cueto MD [address] [facility] [place] [address] PCP - General Family Medicine 02/09/23 Greenskeeper Relationship Specialty Start Date End Date Fito Cueto MD [address] [facility] [place] [address] PCP - General Family Medicine 02/09/23 Greenskeeper Relationship Specialty Start Date End Date Fito Cueto MD [address] [facility] [place] [address] PCP - General Family Medicine 02/09/23 Greenskeeper Relationship Specialty Start Date End Date Fito Cueto MD [address] [facility] [place] [address] PCP - General Family Medicine 02/09/23 Greenskeeper Relationship Specialty Start Date End Date Fito Cueto MD [address] [place] [address] PCP - General Family Medicine 02/09/23 Greenskeeper Relationship Specialty Start Date End Date Fito Cueto MD [address] [place] [address] PCP - General [facility] Medicine 02/09/23 Greenskeeper Relationship Specialty Start Date End Date Fito Cueto MD [address] [place] [address] PCP - General Family Medicine 02/09/23 Reason [...] BE BASED ON THE PRIMARY CLINICAL RECORDS. [facility]. provides no warranty or guarantee of the accuracy or completeness of information in this document.
[2024-10-03 07:57] LABS: Bilirubin Urine NEGATIVE (NEGATIVE); Blood Urine LARGE (NEGATIVE); Clarity Urine CLEAR (CLEAR); Color Urine LT. YELLOW (YELLOW); Glucose Urine UA NEGATIVE (NEGATIVE); Ketones Urine NEGATIVE (NEGATIVE); Leukocyte Esterase Urine TRACE (NEGATIVE); Nitrite Urine NEGATIVE (NEGATIVE); Protein Urine NEGATIVE (NEG/TRACE); Urobilinogen Urine 0.2 EU/dL (0.2-1.0)
[2024-10-03 08:06] LABS: Urine Microscopic Indicated YES
[2024-10-03 08:08] LABS: Bacteria Urine TRACE #/HPF (NONE SEEN); Cast Seen? NONE SEEN #/LPF (NONE SEEN); Crystals Seen? None Seen #/HPF (None Seen); Mucus Urine NONE SEEN (NONE SEEN); Squamous Epithelial Cell Urine MODERATE #/LPF (NONE/RARE)
[2024-10-03 08:09] LABS: Urine Culture Indicated NO
[2024-10-03] MEDS: 0.9 % SODIUM CHLORIDE 1,000 ML 1000 ML IV (08:17)
[2024-10-03 08:27] LABS: Basophils Percent Auto 0.3 % (0.2-2.0); Eosinophils Absolute Auto 0.1 10^3/uL (0.0-0.7); Eosinophils Percent Auto 0.8 % (0.9-7.0); Hematocrit 36.5 % (36.0-48.0); Hemoglobin 12.1 g/dL (12.0-16.0); Immature Granulocytes Abs Auto 0.13 10^3/uL (0.00-0.03); Immature Granulocytes Pct Auto 1.3 % (0.0-0.5); Lymphocytes Absolute Auto 2.1 10^3/uL (1.2-3.8); Lymphocytes Percent Auto 21.5 % (20.5-60.0); Mean Corpuscular HGB Conc 33.2 g/dL (29.9-35.2); Mean Corpuscular Hemoglobin 30.9 pg (26.7-34.0); Mean Corpuscular Volume 93.4 fL (81.0-99.0); Mean Platelet Volume 10.2 fL (9.5-13.5); Monocytes Absolute Auto 0.6 10^3/uL (0.3-0.8); Monocytes Percent Auto 6.5 % (1.7-12.0); Neutrophils Absolute Auto 6.9 10^3/uL (1.4-6.5); Neutrophils Percent Auto 69.6 % (43.0-75.0); Platelet Count 186 10^3/uL (150-450); Red Blood Count 3.91 10^6/uL (4.20-5.40); Red Cell Distribution Width 13.8 % (11.0-15.0); White Blood Count 9.9 10^3/uL (4.0-11.0)
[2024-10-03] MEDS: CITRIC ACID/SODIUM CITRATE 30 ML SOLUTION ORACIT SHOHL'S SOLN PO (08:30)
[2024-10-03] MEDS: FAMOTIDINE/PF 20 MG/2 ML VIAL IV (08:30)
[2024-10-03] MEDS: TERBUTALINE SULFATE 1 MG/ML VIAL 0.25 MG SUBQ (08:30)
[2024-10-03] MEDS: METOCLOPRAMIDE HCL 10 MG/2 ML VIAL IVP (08:30)
[2024-10-03] MEDS: CEFAZOLIN SODIUM/DEXTROSE,ISO 2 GM/50 ML PIGGYBACK IV ×2 (08:30→16:02)
--- NOTE | 2024-10-03 08:37 | P.OBHP_ITS ---
OB - H&P: HPI History of Present Illness Chief complaint: bleeding. conntractionsm Date of last menstrual period: 34 weeks Comments: regular painful contraction, at present no active bleeding, did pass blood clots at home History of Present Dating criteria: LMP confirmed by 1st trimester US care: good care Ultrasounds: normal 1st trimester US and normal mid trimester US complications: placenta previa and gestational diabetes Labs Blood type: 0 (-) negative Rubella: immune RPR/VDLR: nonreactive GBS status: unknown HBsAG: negative Review of Systems ROS Status of ROS: 10 or more systems reviewed and unremarkable except as noted in history and below Gastrointestinal: Reports: abdominal pain (painful contractions at 34 weeks) Genitourinary: Reports: other (bleeding with labor contractions with complete previa) PFSH [facility] Medical History (Updated 10/03/24 @ 08:50 by Ana De León MD) History of transesophageal echocardiography ([place]) ?Z92.89 - Personal history of other medical treatment (ICD-10) Migraine ?G43.909 - Migraine, unspecified, not intractable, without status migrainosus (ICD-10) Infertility DVT (deep venous thrombosis) ?I82.409 - Acute embolism and thrombosis of unspecified deep veins of unspecified lower extremity (ICD-10) Surgical History H/O dilation and curettage ?Z98.890 - Other specified postprocedural states (ICD-10) H/O section ?Z98.891 - History of uterine scar from previous surgery (ICD-10) History of laparoscopy ?Z98.890 - Other specified postprocedural states (ICD-10) Meds Home Medications and Allergies Home Medications ?Medication ?Instructions ?Recorded ?Confirmed ?Type folic acid 1 mg tablet 1 mg PO DAILY 10/03/24 History vits no.130-ferrous fum 1 tab PO DAILY 10/03/24 10/03/24 History 27 mg iron-folic acid 800 mcg tablet ( Vitamin) Allergies Allergy/AdvReac Type Severity Reaction Status Date / Time acetaminophen (From Vicodin) AdvReac gi upset Verified 01/11/24 09:20 hydrocodone (From Vicodin) AdvReac gi upset Verified 01/11/24 09:20 Exam Narrative Exam Narrative: breathing through contractions, was bleeding at home, passed clots, no active bleeding at present, definitely wants bilateral salpingectomy as discussed. even if this baby does not do well still desires permanent sterilization Constitutional Vital Signs, click to edit/add: Last Vital Signs Temp 96.4 F L 10/03/24 07:55 Pulse 85 10/03/24 07:54 BP 138/93 H 10/03/24 07:54 Common normals: oriented x3 and alert General appearance: cooperative and in distress (with painful contractions) HENMT Common normals: normocephalic and head/scalp atraumatic Eye Common normals: PERRL Pupil: accommodation reflex normal Neck & C-Spine Common normals: full ROM and supple Respiratory Common normals: normal respiratory effort Auscultation: clear to auscultation bilaterally Cardio Common normals: regular rate and regular rhythm GI Inspection: other (gravid, 34 weeks, nontender between painful contractions) Palpation: soft Common normals: no CVA tenderness Back & Pelvis Common normals: no thoracic nor lumbar tenderness Extremity Common normals: normal to inspection, full ROM and no calf tenderness Neuro Common normals: CN's II-XII intact bilaterally, moves all extremities, no focal motor deficits and no sensory deficits noted Psych Common normals: mental status grossly normal, thought process normal, cooperative, affect normal, speech normal and activity/motor behavior normal Results Labs Labs: Short CBC 10/03/24 Range/Units 08:15 WBC 9.9 (4.0-11.0) 10^3/uL Hgb 12.1 (12.0-16.0) g/dL Hct 36.5 (36.0-48.0) % Plt Count 186 (150-450) 10^3/uL Urine 10/03/24 Range/Units 07:50 Urine Color Lt. yellow (YELLOW) Urine Clarity Clear (CLEAR) Urine pH 6.0 (5.0-9.0) Ur Specific [place] 1.010 (1.005-1.025) Urine Protein Negative (NEG/TRACE) mg/dL Urine Glucose (UA) Negative (NEGATIVE) mg/dL OB - A/P Assessment and Plan (1) Complete placenta previa nos or without hemorrhage, third trimester: Assessment and Plan: 34 plus weeks, complete previa, is bleeding but not hemorrhage (2) Bleeding: Assessment and Plan: passed clots from vagina at home, no active bleeding now (3) Request for sterilization: (4) contractions: Assessment and Plan: regular painful contractions, has to breath through contractions, presumed labor, baby heart tracing category I Plan Category B section, Dr. Santos informed, surgery called, explained reason for cs to parents who stated understanding and agreement, had consulted with Dr. Rand for bilateral salpingectomy, consent signed, even if this baby being delivered emergently dies, absolutely want no more babies and still wants permanent sterilization, consents sign for bilateral salpingectomy, cat B CS, and blood products. all questions answered with stated understanding.
[2024-10-03 08:50] LABS: Amphetamine Screen Urine NEGATIVE (NEGATIVE); Barbiturates Screen Urine NEGATIVE (NEGATIVE); Benzodiazepines Screen Urine NEGATIVE (NEGATIVE); Buprenorphine Screen Urine NEGATIVE (NEGATIVE); Cannabinoid Screen Urine NEGATIVE (NEGATIVE); Cocaine Screen Urine NEGATIVE (NEGATIVE); Methadone Screen Urine NEGATIVE (NEGATIVE); Methamphetamines Screen Urine NEGATIVE (NEGATIVE); Opiate Screen Urine NEGATIVE (NEGATIVE); Oxycodone Screen Urine NEGATIVE (NEGATIVE); Phencyclidine Screen Urine NEGATIVE (NEGATIVE); Tricyclic Antidepressant Urine NEGATIVE (NEGATIVE)
[2024-10-03] MEDS: LACTATED RINGER'S SOLUTION 1,000 ML 50 ML IV ×2 (09:22→09:56)
--- OUTSIDE RECORDS SUMMARY | 2024-10-03 09:55 | XMS_ITS | CCD ---
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 Phone KEYONA, DR LAWRENCE Admitting [...] Attending Unavailable TELLY, DR PENNINGTON Consulting Unavailable [place], DR RIGO Med[place] Consulting Unavailable KEYONA, DR [...] sources) Acetaminophen / HYDROcodone Drug Allergy [facility] Repository Medications Current Medications Medication Drug [...] UA Negative Negative - 4(70) +++ mg/dL [facility] Blood, UA Positive Negative - 50 Yang/mcL [facility] Comment on above: Trace - Intact Clarity, UA Clear [facility] Color, UA Yellow [facility] Glucose, UA Negative Negative - 1999(110) ++++ mg/dL [facility] Interpretation and review of laboratory results Abnormal [facility] Ketones, UA Negative Negative - 160(16) ++++ mg/dL [facility] Leukocytes, UA Trace Negative - 500+++ Derik/mcL [facility] Nitrite, UA Negative Negative - Positive [facility] pH, UA 6.5 5 - 9 [facility] Protein, UA Negative Negative - 1999(20) ++++ mg/dL [facility] Spec Grav, UA 1.015 1 - 1.03 [facility] Urobilinogen, UA 0.2 0.2 - 12 mg/dL [facility] US OB BPP W NON-STRESS on 09-25-2024 [place] [address] Ultrasound Report Signed Patient: ANNA LAW MR#: [id number] : 1990 Acct:[id number] Age/Sex: 34 / F ADM Date: 09/25/24 Loc: US Attending Dr: Lee Rand D.O. Ordering Physician: Lee Rand D.O. Date of Service: 09/25/24 Procedure(s): US OB BPP w non-stress Accession Number(s): [id number] cc: Lee Rand D.O.; Physician,Non-Staff [place] [address] Patient Name: ANNA LAW MRN: [id number]:[id number] date: 1990 Sex: F Assigned Patient Location: [facility] Current Patient Location: Accession/Order Number: [id number] Exam Date: 09/25/2024 22:21 Report Date: 09/25/2024 22:23 At the request of: LEE RAND DO Procedure: US OB BPP w non-stress Biophysical profile. Reason for exam: Diet-controlled gestational diabetes. COMPARISON: BPP 09/18/2024 Technique: Transabdominal imaging of the gravid uterus was obtained. 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 JAS is normal at 12.8 cm. heart rate 127 bpm. US/US OB BPP w non-stress IMPRESSION: BPP 8 out of 8. Impression dictated by: Pete Engle Jr., D.O.09/25/2024 10:23 PM Dictation Location: [place] [address] Electronically authenticated by: [id number] Y Date: 09/25/2024 22:23 Dictated By: Pete Engle M.D. Signed By: 09/25/242224 DD/ 22 TD/TT: Superintendent Tests: [facility] Radiology, Radiologist, MD - 09/25/2024 [place] [address] Ultrasound Report Signed Patient: ANNA LAW MR#: [id number] : 1990 Acct:[id number] Age/Sex: 34 / F ADM Date: 09/25/24 Loc: US Attending Dr: Lee Rand D.O. Ordering Physician: Lee Rand D.O. Date of Service: 09/25/24 Procedure(s): US OB BPP w non-stress Accession Number(s): [id number] cc: Lee Rand D.O.; Physician,Non-Staff [place] [address] Patient Name: ANNA LAW MRN: [facility]:[id number] date: 1990 Sex: F Assigned Patient Location: [facility] Current Patient Location: Accession/Order Number: [id number] Exam Date: 09/25/2024 22:21 Report Date: 09/25/2024 22:23 At the request of: LEE RAND DO Procedure: US OB BPP w non-stress Biophysical profile. Reason for exam: Diet-controlled gestational diabetes. COMPARISON: BPP 09/18/2024 Technique: Transabdominal imaging of the gravid uterus was obtained. 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 JAS is normal at 12.8 cm. heart rate 127 bpm. US/US OB BPP w non-stress IMPRESSION: BPP 8 out of 8. Impression dictated by: Pete Engle Jr., D.O.09/25/2024 10:23 PM Dictation Location: [place] [address] Electronically authenticated by: [id number] Y Date: 09/25/2024 22:23 Dictated By: Pete Engle M.D. Signed By: 09/25/242224 DD/ 22 TD/TT: Superintendent Tests: [facility] Radiology Study observation (narrative) [facility] US OB BPP W NON-STRESS Ordered By: Radiologist Radiology on 09-25-2024 [facility] Work Phone: US OB BPP W NON-STRESS on 09-18-2024 [place] [address] Ultrasound Report Signed Patient: ANNA LAW MR#: [id number] : 1990 Acct:[id number] Age/Sex: 34 / F ADM Date: 09/18/24 Loc: US Attending Dr: Lee Rand D.O. Ordering Physician: Lee Rand D.O. Date of Service: 09/18/24 Procedure(s): US OB BPP w non-stress Accession Number(s): [id number] cc: Lee Rand D.O.; Physician,Non-Staff [place] [address] Patient Name: ANNA LAW MRN: [id number] date: 1990 Sex: F Assigned Patient Location: US Current Patient Location: Accession/Order Number: [id number] Exam Date: 09/18/2024 22:52 Report Date: 09/18/2024 22:56 At the request of: LEE RAND DO Procedure: US OB BPP w non-stress Biophysical profile. Reason for exam: Diet-controlled gestational diabetes. COMPARISON: BPP 09/12/2024. Technique: Transabdominal imaging of the gravid uterus was obtained. 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 JAS is normal at 14.3 cm. heart rate 135 bpm. US/US OB BPP w non-stress IMPRESSION: BPP 8 out of 8. Impression dictated by: Pete Engle Jr., D.O.09/18/2024 10:56 PM Dictation Location: [place] [address] Electronically authenticated by: [id number] Y Date: 09/18/2024 22:56 Dictated By: Pete Engle M.D. Signed By: 09/18/242257 DD/ 55 TD/TT: Superintendent Tests: [facility] Radiology, Radiologist, MD - 09/18/2024 [place] [address] Ultrasound Report Signed Patient: ANNA LAW MR#: [id number] : 1990 Acct:[id number] Age/Sex: 34 / F ADM Date: 09/18/24 Loc: US Attending Dr: Lee Rand D.O. Ordering Physician: Lee Rand D.O. Date of Service: 09/18/24 Procedure(s): US OB BPP w non-stress Accession Number(s): [id number] cc: Lee Rand D.O.; Physician,Non-Staff [place] [id number] Patient Name: ANNA LAW MRN: [facility]:[id number] date: 1990 Sex: F Assigned Patient Location: US Current Patient Location: Accession/Order Number: [id number] Exam Date: 09/18/2024 22:52 Report Date: 09/18/2024 22:56 At the request of: LEE RAND DO Procedure: US OB BPP w non-stress Biophysical profile. Reason for exam: Diet-controlled gestational diabetes. COMPARISON: BPP 09/12/2024. Technique: Transabdominal imaging of the gravid uterus was obtained. 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 JAS is normal at 14.3 cm. heart rate 135 bpm. US/US OB BPP w non-stress IMPRESSION: BPP 8 out of 8. Impression dictated by: Pete Engle Jr., D.O.09/18/2024 10:56 PM Dictation Location: [facility] Electronically authenticated by: [id number] Y Date: 09/18/2024 22:56 Dictated By: Pete Engle M.D. Signed By: 09/18/242257 DD/ 55 TD/TT: Superintendent Tests: [facility] Radiology Study observation (narrative) [facility] US OB BPP W NON-STRESS Ordered By: Radiologist Radiology on 09-18-2024 [facility] Work Phone: US OB BPP W NON-STRESS on 09-12-2024 [place] [address] Ultrasound Report Signed Patient: ANNA LAW MR#: [id number] : 1990 Acct:[id number] Age/Sex: 34 / F ADM Date: 09/11/24 Loc: US Attending Dr: Lee Rand D.O. Ordering Physician: Lee Rand D.O. Date of Service: 09/11/24 Procedure(s): US OB BPP w non-stress Accession Number(s): [id number] cc: Lee Rand D.O.; Physician,Non-Staff [place] [address] Patient Name: ANNA LAW MRN: [facility]:[id number] date: 1990 Sex: F Assigned Patient Location: [facility] Current Patient Location: Accession/Order Number: [id number] Exam Date: 09/12/2024 09:01 Report Date: 09/12/2024 [...] 31 weeks 3 days. The heart rate afyedrss111 beats per minute. FINDINGS: TONE: 1 or [...] Tere Munoz M.D.09/12/2024 9:04 AM Dictation Location: [facility] | [employer] Electronically authenticated by: [id number] Y Date: 09/12/2024 09:04 Dictated By: Tere Munoz M.D. Signed By: 09/12/24905 DD/ 3 TD/TT: Superintendent Tests: [facility] Radiology, Radiologist, MD - 09/12/2024 [place] [address] Ultrasound Report Signed Patient: ANNA LAW MR#: [id number] : 1990 Acct:[id number] Age/Sex: 34 / F ADM Date: 09/11/24 Loc: US Attending Dr: Lee Rand D.O. Ordering Physician: Lee Rand D.O. Date of Service: 09/11/24 Procedure(s): US OB BPP w non-stress Accession Number(s): [id number] cc: Lee Rand D.O.; Physician,Non-Staff [place] [address] [address] Patient Name: ANNA LAW MRN: [facility]:[id number] date: 1990 Sex: F Assigned Patient Location: [facility] Current Patient Location: Accession/Order Number: [id number] Exam Date: 09/12/2024 09:01 Report Date: 09/12/2024 [...] Tere Munoz M.D.09/12/2024 9:04 AM Dictation Location: [employer] Electronically authenticated by: [id number] Y Date: 09/12/2024 09:04 Dictated By: Tere Munoz M.D. Signed By: 09/12/24905 DD/ 3 TD/TT: Superintendent Tests: [facility] Radiology Study observation (narrative) [facility] US OB BPP W NON-STRESS Ordered By: Radiologist Radiology on 09-12-2024 [facility] Work Phone: Urinalysis macro (dipstick) panel (U)on 09-12-2024 Bilirubin, UA Negative Negative - 4(70) +++ mg/dL [facility] Blood, UA Negative Negative - 50 Yang/mcL [facility] Clarity, UA Clear [facility] Color, UA Yellow [facility] Glucose, UA Negative Negative - 2000(110) ++++ mg/dL [facility] Interpretation and review of laboratory results Abnormal [facility] Ketones, UA Positive Negative - 160(16) ++++ mg/dL [facility] Comment on above: trace Leukocytes, UA Negative Negative - 500+++ Derik/mcL [facility] Nitrite, UA Negative Negative - Positive [facility] pH, UA 7 5 - 9 [facility] Protein, UA Trace Negative - 2000(20) ++++ mg/dL [facility] Spec Grav, UA 1.02 1 - 1.03 [facility] Urobilinogen, UA 0.2 0.2 - 12 mg/dL [facility] US OB BPP W NON-STRESS on 09-05-2024 [place] [address] Ultrasound Report Signed Patient: ANNA LAW MR#: [id number] : 1990 Acct:[id number] Age/Sex: 34 / F ADM Date: 09/04/24 Loc: US Attending Dr: Lee Rand D.O. Ordering Physician: Lee Rand D.O. Date of Service: 09/04/24 Procedure(s): US OB BPP w non-stress Accession Number(s): [id number] cc: Lee Rand D.O.; Physician,Non-Staff [place] [address] Patient Name: ANNA LAW MRN: [id number] date: 1990 Sex: F Assigned Patient Location: [facility] Current Patient Location: Accession/Order Number: [id number] Exam Date: 09/04/2024 18:52 Report Date: 09/05/2024 [...] M.D. Signed By: 09/05/24554 DD/ 2 TD/TT: Superintendent Tests: [facility] Radiology, Radiologist, - 09/05/2024 [place] [address] Ultrasound Report Signed Patient: ANNA LAW MR#: [id number] : 1990 Acct:[id number] Age/Sex: 34 / F ADM Date: 09/04/24 Loc: US Attending Dr: Lee Rand D.O. Ordering Physician: Lee Rand D.O. Date of Service: 09/04/24 Procedure(s): US OB BPP w non-stress Accession Number(s): [id number] cc: Lee Rand D.O.; Physician,Non-Staff [place] [address] [address] Patient Name: ANNA LAW MRN: [facility]:[id number] date: 1990 Sex: F Assigned Patient Location: [facility] Current Patient Location: Accession/Order Number: [id number] Exam Date: 09/04/2024 18:52 Report Date: 09/05/2024 [...] M.D. Signed By: 09/05/2455 DD/ 2 TD/TT: Superintendent Tests: [facility] Radiology Study observation (narrative) [facility] US OB BPP W NON-STRESS Ordered By: Radiologist Radiology on 09-05-2024 [facility] Work Phone: Urinalysis macro (dipstick) panel (U)on 08-29-2024 Bilirubin, UA Negative Negative - 4(70) +++ mg/dL [facility] Blood, UA Positive Negative - 50 Yang/mcL [facility] Comment on above: trace-intact Clarity, UA Clear [facility] Color, UA Yellow [facility] Glucose, UA Negative Negative - 1999(110) ++++ mg/dL [facility] Interpretation and review of laboratory results Abnormal [facility] Ketones, UA Positive Negative - 160(16) ++++ mg/dL [facility] Comment on above: 40 Leukocytes, UA Trace Negative - 500+++ Derik/mcL [facility] Nitrite, UA Negative Negative - Positive [facility] pH, UA 5.5 5 - 9 [facility] Protein, UA Trace Negative - 1999(20) ++++ mg/dL [facility] Spec Grav, UA 1.025 1 - 1.03 [facility] Urobilinogen, UA 1.0 0.2 - 12 mg/dL [facility] GLUCOSE TOLERANCE 3 HOURon 0 07-28-2024 GLUCOSE TOLERANCE 3 HOUR High mg/dL [facility] Comment on above: GLU FAST 87 (<95) Co l: 07/28/24 0638 GLU 1HR 199H (<180) Col: 07/28/24 0739 GLU 2HR 173H (<155) Col: 07/28/24 0839 GLU 3HR 94 (<140) Col: 07/28/24 0939 Interpretation and review of laboratory results Abnormal [facility] [place] GLU[facility]SE 1 HOURon 07-21-2024 Glucose [Mass/Vol] 154 mg/dL High NINF - 13 0 mg/dL [facility] Interpretation and review of laboratory results Abnormal [facility] Urinalysis macro (dipstick) panel (U)on 07-12-2024 Bilirubin, UA Negative Negative - 4(70) +++ mg/dL [facility] Blood, UA Negative Negative - 50 Yang/mcL [facility] Clarity, UA Clear [facility] Color, UA Yellow [facility] Glucose, UA Negative Negative - 1999(110) ++++ mg/dL [facility] Interpretation and review of laboratory results Normal [facility] Ketones, UA Negative Negative - 160(16) ++++ mg/dL [facility] Leukocytes, UA Negative Negative - 500+++ Derik/mcL [facility] Nitrite, UA Negative Negative - Positive [facility] pH, UA 7 5 - 9 [facility] Protein, UA Negative Negative - 1999(20) ++++ mg/dL [facility] Spec Grav, UA 1.02 1 - 1.03 [facility] Urobilinogen, UA 1.0 0.2 - 12 mg/dL [facility] AFP, SERUM, OPEN SPINA BIFID Aon 07-04-2024 AFP MOM 1.60 . [facility] AFP VALUE 91.9 ng/mL . [facility] COMMENT: Comment . [facility] Comment on above: Sonia Sullivan , Ph.D., [facility] Director References: Available Upon Request. Multiples Of Median Cutoffs For AFP Elevations Bhandari 2.5 Black 2.8 IDD 2.0 Twins 4.5 Abbreviation Definitions IDD - Insulin Dep Diabetes OSBR - Open Spina Bifida Risk For further inquiries contact [employer] [facility] at [phone]. This test was developed and its performance characteristics determined by [employer]. It has not been cleared or approved by the Food and Drug Administration. Performed at: [facility] [address] [place], [place] [id number] Re Etcher: [facility], Phone: [phone] GEST. AGE ON COLLECTION DATE 21.0 . weeks [facility] GESTAT. AGE BASED ON LMP . [facility] Comment on above: Recalculations are n ot recommended when gestational dating by LMP and ultrasound are within 10 days. INSULIN DEP DIABETES No . [facility] INTERPRETATION Comment . [facility] Comment on above: Interpretation: Scre en [...] Customer Services to discuss available options. The [employer] recommends amniocentesis be offered to women age 35 and older. [age] [facility] MULTIPLE GESTATION No . [facility] OSBR RISK 1 IN 2100 . [facility] RACE . [facility] RESULTS Report . [facility] TEST RESULTS: Negative . [facility] WEIGHT 177 . lbs [facility] N LMP [id number] 2 18 N 1 Y 177 N N N White/ [facility] RECURRENT VAGINITIS (HTRX)on 06-13-2024 ATOPOBIUM VAGINAE 30.301 Abnormal [facility] ATOPOBIUM VAGINAE Detected Abnormal [facility] BVAB 2,3 (BACTERIAL VAGINOSIS ASSOCIATED BACTERIA 2, 3); MOBILUNCUS SPP 0 [facility] BVAB 2,3 (BACTERIAL VAGINOSIS ASSOCIATED BACTERIA 2, 3); MOBILUNCUS SPP Not detected [facility] KAITLYNN ALBICANS, PARAPSILOSIS, TROPICALIS 0 [facility] KAITLYNN ALBICANS, PARAPSILOSIS, TROPICALIS Not detected [facility] KAITLYNN GLABRATA 0 [facility] KAITLYNN GLABRATA Not detected [facility] KAITLYNN KRUSEI 0 [facility] KAITLYNN KRUSEI Not detected [facility] CHLAMYDIA TRACHOMATIS 0 [facility] CHLAMYDIA TRACHOMATIS Not detected [facility] GARDNERELLA VAGINALIS 21.1 Abnormal [facility] GARDNERELLA VAGINALIS Detected Abnormal [facility] Interpretation and review of laboratory results Abnormal [facility] MEGASPHAERA (TYPES 1, 2) 0 [facility] MEGASPHAERA (TYPES 1, 2) Not detected [facility] MYCOPLASMA GENITALIUM 0 [facility] MYCOPLASMA GENITALIUM Not detected [facility] NEISSERIA GONORRHOEAE 0 [facility] NEISSERIA GONORRHOEAE Not detected [facility] TRICHOMONAS VAGINALIS 0 [facility] TRICHOMONAS VAGINALIS Not detected [facility] Urinalysis macro (dipstick) panel (U)on 06-11-2024 Bilirubin, UA Negative Negative - 4(70) +++ mg/dL [facility] Blood, UA Negative Negative - 50 Yang/mcL [facility] Clarity, UA Clear [facility] Color, UA Yellow [facility] Glucose, UA Negative Negative - 2000(110) ++++ mg/dL [facility] Interpretation and review of laboratory results Normal [facility] Ketones, UA Negative Negative - 160(16) ++++ mg/dL [facility] Leukocytes, UA Negative Negative - 500+++ Derik/mcL [facility] Nitrite, UA Negative Negative - Positive [facility] pH, UA 5.5 5 - 9 [facility] Protein, UA Negative Negative - 1999(20) ++++ mg/dL [facility] Spec Grav, UA 1.02 1 - 1.03 [facility] Urobilinogen, UA 1.0 0.2 - 12 mg/dL [facility] Urinalysis macro (dipstick) panel (U)on 05-08-2024 Bilirubin, UA Negative Negative - 4(70) +++ mg/dL [facility] Blood, UA Positive Negative - 50 Yang/mcL [facility] Comment on above: trace-intact Clarity, UA Clear [facility] Color, UA Yellow [facility] Glucose, UA Negative Negative - 1999(110) ++++ mg/dL [facility] Interpretation and review of laboratory results Abnormal [facility] Ketones, UA Negative Negative - 160(16) ++++ mg/dL [facility] Leukocytes, UA Negative Negative - 500+++ Derik/mcL [facility] Nitrite, UA Negative Negative - Positive [facility] pH, UA 6 5 - 9 [facility] Protein, UA Negative Negative - 1999(20) ++++ mg/dL [facility] Spec Grav, UA 1.025 1 - 1.03 [facility] Urobilinogen, UA 0.2 0.2 - 12 mg/dL [facility] ALL CBC WITH AUTO DIFFon BASOPHILS ABSOLUTE AUTO 0.0 [facility] Basophils/100 WBC (Bld) 0.4 % 0.2 - 2.0 % [facility] Eosinophils/100 WBC (Bld) 0.9 % 0.9 - 7.0 % [facility] Erythrocyte distribution width (RBC) [Ratio] 11.9 % 11.0 - 15.0 % [facility] Hematocrit (Bld) [Volume fraction] 37.1 % 36.0 - 48.0 % [facility] Hemoglobin (Bld) [Mass/Vol] 12.6 g/dL 12.0 - 16.0 g/dL [facility] IMMATURE GRANULOCYTES ABS AUTO 0.03 [facility] Immature granulocytes/100 WBC (Bld) 0.4 % 0.0 - 0.5 % [facility] Interpretation and review of laboratory results Abnormal [facility] LYMPHOCYTES ABSOLUTE AUTO 1.7 [facility] Lymphocytes/100 WBC (Bld) 21.2 % 20.5 - 60.0 % [facility] MCH (RBC) [Entitic mass] 31.7 pg 26.7 - 34.0 pg [facility] MCHC (RBC) [Mass/Vol] 34.0 g/dL 29.9 - 35.2 g/dL [facility] MCV (RBC) [Entitic vol] 93.5 fL 81.0 - 99.0 fL [facility] MONOCYTES ABSOLUTE AUTO 0.6 [facility] Monocytes/100 WBC (Bld) 6.8 % 1.7 - 12.0 % [facility] NEUTROPHILS ABSOLUTE AUTO 5.7 [facility] Neutrophils/100 WBC (Bld) 70.3 % 43.0 - 75.0 % [facility] Platelet mean volume (Bld) [Entitic vol] 9.8 fL 9.5 - 13.5 fL [facility] TBH EO # 0.1 [facility] TB PLT 219 [facility] RBC 3.97 Low [facility] WBC 8.1 [facility] HCG ( test) Ql (U)o n 04-05-2024 Interpretation and review of laboratory results Abnormal [facility] Preg Test, Ur Positive [facility] Urinalysis macro (dipstick) panel (U)on 04-05-2024 Bilirubin, UA Negative Negative - 4(70) +++ mg/dL [facility] Blood, UA Positive Negative - 50 Yang/mcL [facility] Comment on above: trace intact Clarity, UA Clear [facility] Color, UA Yellow [facility] Glucose, UA Negative Negative - 1999(110) ++++ mg/dL [facility] Interpretation and review of laboratory results Abnormal [facility] Ketones, UA Negative Negative - 160(16) ++++ mg/dL [facility] Leukocytes, UA Trace Negative - 500+++ Derik/mcL [facility] Nitrite, UA Negative Negative - Positive [facility] pH, UA 6.5 5 - 9 [facility] Protein, UA Negative Negative - 1999(20) ++++ mg/dL [facility] Spec Grav, UA 1.015 1 - 1.03 [facility] Urobilinogen, UA 0.2 0.2 - 12 mg/dL [facility] CBC AUTO DIFFon 06-05-2022 BASO # 0.0 103/ul Normal 0.0-0.1 [facility] Comment on above: Performed By: #### C BC #### [facility] [address] [place] [address] Dr. Sandi Michelle Basophils/100 WBC (Bld) 0.2 % Normal 0.2-2.0 [facility] Comment on above: Performed By: #### C BC #### [facility] [address] [address] [address] Sandi Michelle EO # 0.0 103/ul Normal 0.0-0.7 [facility] Comment on above: Performed By: #### C BC #### [facility] [address] [place] [address] Dr. Sandi Michelle Eosinophils/100 WBC (Bld) 0.2 % Critically low 0.9-7.0 [facility] Comment on above: Performed By: #### C BC #### [facility] [address] [place] [address] Dr. Sandi Michelle Erythrocyte distribution width (RBC) [Ratio] 14.3 % Normal 11.0-15.0 [facility] Comment on above: Performed By: #### C BC #### [facility] [address] [place] [address] Dr. Sandi Michelle Hematocrit (Bld) [Volume fraction] 27.3 % Critically low 36.0-48.0 [facility] Comment on above: Performed By: #### C BC #### [facility] [address] [place] [address] Dr. Sandi Michelle Hemoglobin (Bld) [Mass/Vol] 9.3 g/dL Critically low 12.0-16.0 [facility] Comment on above: Result Comment: DELI VERY Performed By: #### C BC #### [facility] [address] [place] [address] Dr. Sandi Michelle IG # 0.14 10e3/ul Critically high 0.00-0.03 [facility] Comment on above: Performed By: #### C BC #### [facility] [address] [place] [address] Dr. Sandi Michelle IG % 1.1 % Critically high 0.0-0.5 [facility] Comment on above: Performed By: #### C BC #### [facility] [address] [place] [address] Dr. Sandi Michelle LYMPH # 1.6 103/ul Normal 1.2-3.8 [facility] Comment on above: Performed By: #### C BC #### [facility] [address] [place] [address] Dr. Sandi Michelle Lymphocytes/100 WBC (Bld) 12.1 % Critically low 20.5-60.0 [facility] Comment on above: Performed By: #### C BC #### [facility] [address] [place] [address] Dr. Sandi Michelle MANUAL DIFF REQ NO Normal [facility] Comment on above: Performed By: #### C BC #### [facility] [address] [place] [address] Dr. Sandi Michelle MCH (RBC) [Entitic mass] 31.8 pg Normal 26.7-34.0 [facility] Comment on above: Performed By: #### C BC #### [facility] [address] [place] [address] Dr. Sandi Michelle MCHC (RBC) [Mass/Vol] 34.1 g/dL Normal 29.9-35.2 [facility] Comment on above: Performed By: #### C BC #### [facility] [address] [place] [address] Dr. Sandi Michelle MCV (RBC) [Entitic vol] 93.5 fL Normal 81.0-99.0 [facility] Comment on above: Performed By: #### C BC #### [facility] [address] [place] [address] Dr. Sandi Michelle MONO # 0.9 103/ul Critically high 0.3-0.8 [facility] Comment on above: Performed By: #### C BC #### [facility] [address] [place] [address] Dr. Sandi Michelle Monocytes/100 WBC (Bld) 6.8 % Normal 1.7-12.0 [facility] Comment on above: Performed By: #### C BC #### [facility] [address] [place] [address] Dr. Sandi Michelle NEUT # 10.3 103/ul Critically high 1.4-6.5 [facility] [place] [facility] Comment on above: Performed By: #### C BC #### [facility] [address] [place] [address] Dr. Sandi Michelle Neutrophils/100 WBC (Bld) 79.6 % Critically high 43.0-75.0 [facility] Comment on above: Performed By: #### C BC #### [facility] [address] [place] [address] Dr. Sandi Michelle Platelet mean volume (Bld) [Entitic vol] 9.8 fL Normal 9.5-13.5 [facility] Comment on above: Performed By: #### C BC #### [facility] [address] [place] [address] Dr. Sandi Michelle PLT 138 103/ul Critically low 150-[address] [facility] Comment on above: Performed By: #### C BC #### [facility] [address] [place] [address] Dr. Sandi Michelle RBC 2.92 106/ul Critically low 4.20-5.40 [facility] Comment on above: Performed By: #### C BC #### [facility] [address] [place] [address] Dr. Sandi Michelle WBC 12.9 103/ul Critically high 4.0-11.0 The [facility] Comment on above: Performed By: #### C BC #### [facility] [address] [place] [address] Dr. Sandi Michelle CBC AUTO DIFFon 06-04-2022 BASO # 0.0 103/ul Normal 0.0-0.1 [facility] Comment on above: Performed By: #### C BC #### [facility] [address] [place] [address] Dr. Sandi Michelle Basophils/100 WBC (Bld) 0.3 % Normal 0.2-2.0 [facility] Comment on above: Performed By: #### C BC #### [facility] [address] [place] [address] Dr. Sandi Michelle EO # 0.0 103/ul Normal 0.0-0.7 [facility] Comment on above: Performed By: #### C BC #### [facility] [address] [place] [address] Dr. Sandi Michelle Eosinophils/100 WBC (Bld) 0.1 % Critically low 0.9-7.0 [facility] Comment on above: Performed By: #### C BC #### [facility] [address] [place] [address] Dr. Sandi Michelle Erythrocyte distribution width (RBC) [Ratio] 14.4 % Normal 11.0-15.0 [facility] Comment on above: Performed By: #### C BC #### [facility] [address] [place] [address] Dr. Sandi Michelle Hematocrit (Bld) [Volume fraction] 37.2 % Normal 36.0-48.0 [facility] Comment on above: Performed By: #### C BC #### [facility] [address] [place] [address] Dr. Sandi Michelle Hemoglobin (Bld) [Mass/Vol] 12.9 g/dL Normal 12.0-16.0 [facility] Comment on above: Performed By: #### C BC #### [facility] [address] [place] [address] Dr. Sandi Michelle IG # 0.23 10e3/ul Critically high 0.00-0.03 [facility] Comment on above: Performed By: #### C BC #### [facility] [address] [place] [address] Dr. Sandi Michelle IG % 1.6 % Critically high 0.0-0.5 [facility] Comment on above: Performed By: #### C BC #### [facility] [address] [place] [address] Dr. Sandi Michelle LYMPH # 2.3 103/ul Normal 1.2-3.8 [facility] Comment on above: Performed By: #### C BC #### [facility] [address] [place] [address] Dr. Sandi Michelle Lymphocytes/100 WBC (Bld) 16.0 % Critically low 20.5-60.0 [facility] Comment on above: Performed By: #### C BC #### [facility] [address] [place] [address] Dr. Sandi Michelle MANUAL DIFF REQ NO Normal [facility] Comment on above: Performed By: #### C BC #### [facility] [address] [place] [address] Dr. Sandi Michelle MCH (RBC) [Entitic mass] 32.3 pg Normal 26.7-34.0 [facility] Comment on above: Performed By: #### C BC #### [facility] [address] [place] [address] Dr. Sandi Michelle MCHC (RBC) [Mass/Vol] 34.7 g/dL Normal 29.9-35.2 [facility] Comment on above: Performed By: #### C BC #### [facility] [address] [place] [address] Dr. Sandi Michelle MCV (RBC) [Entitic vol] 93.0 fL Normal 81.0-99.0 [facility] Comment on above: Performed By: #### C BC #### [facility] [address] [place] [address] Dr. Sandi Michelle MONO # 0.8 103/ul Normal 0.3-0.8 [facility] Comment on above: Performed By: #### C BC #### [facility] [address] [place] [address] Dr. Sandi Michelle Monocytes/100 WBC (Bld) 5.8 % Normal 1.7-12.0 [facility] Comment on above: Performed By: #### C BC #### [facility] [address] [place] [address] Dr. Sandi Michelle NEUT # 10.7 103/ul Critically high 1.4-6.5 [facility] Comment on above: Performed By: #### C BC #### [facility] [address] [address] [address] Sandi Michelle Neutrophils/100 WBC (Bld) 76.2 % Critically high 43.0-75.0 [facility] Comment on above: Performed By: #### C BC #### [facility] [address] [address] [address] Sandi Michelle Platelet mean volume (Bld) [Entitic vol] 10.9 fL Normal 9.5-13.5 [facility] Comment on above: Performed By: #### C BC #### [facility] [address] [place] [address] Dr. Sandi Michelle PLT 194 103/ul Normal 150-450 [facility] Comment on above: Performed By: #### C BC #### [facility] [address] [place] [address] Dr. Sandi Michelle RBC 4.00 106/ul Critically low 4.20-5.40 [facility] Comment on above: Performed By: #### C BC #### [facility] [address] [place] [address] Dr. Sandi Michelle WBC 14.0 103/ul Critically high 4.0-11.0 [facility] Comment on above: Performed By: #### C BC #### [facility] [address] [place] [address] Dr. Sandi Michelle Covid-19 PCR ([facility])on 05-25 SARS-CoV-2 (COVID-19) RNA ALETHEA+probe Ql (Unsp spec) Not detected Normal NOT DETECTED [facility] Comment on above: Result Comment: When [...] for this test is supported by the [place] of [employer] and Human Service's declaration that [...] be used). Performed By: #### C VDTBH ####[facility] [address] [place], [place] [address]Dr. Sandi Michelle DRUG SCREEN RAPID (URINE)on 06-04-2022 AMP Negative Normal NEGATIVE [facility] Comment on above: Performed By: #### D RUGRPD ####[facility] [address] [place], [place] [address]Dr. Sandi Michelle BAR Negative Normal NEGATIVE [facility] Comment on above: Performed By: #### D RUGRPD ####[facility] [address] [place], [place] [address]Dr. Sanjuanitasonia [facility] BUP Negative Normal NEGATIVE [facility] Comment on above: Performed By: #### D RUGRPD ####[facility] [address] [place], [place] [address]Dr. Sandi Michelle BZO Negative Normal NEGATIVE [facility] Comment on above: Performed By: #### D RUGRPD ####[facility] [address] [place], [place] [address]Dr. Sandi [facility] NINO Negative Normal NEGATIVE [facility] Comment on above: Performed By: #### D RUGRPD ####[facility] [address] [place], [place] [address]. [facility] CUT-OFFS SEE BELOW Normal [facility] Comment on above: Result [...] 300 ng/mL Performed By: #### D RUGRPD ####[facility] [address] [place], [place] [address]Dr. Sandi Michelle DRUG CUT HEADER DRUG CLASS TEST SYSTEM CUT-OFF CONCENTRATIONS ARE FOLLOWS: Normal [facility] Comment on above: Performed By: #### D RUGRPD ####[facility] [address] [place], [place] [address]Dr. Sandi Michelle mAMP Negative Normal NEGATIVE [facility] Comment on above: Performed By: #### D RUGRPD ####[facility] [address] [place], [place] [address]Dr. Sandi Michelle MTD Negative Normal NEGATIVE [facility] Comment on above: Performed By: #### D RUGRPD ####[facility] [address] [place], [place] [address]Dr. Sandi Michelle OPI Negative Normal NEGATIVE [facility] Comment on above: Performed By: #### D RUGRPD ####[facility] [address] [place], [place] [address]Dr. Sandi Michelle OXY Negative Normal NEGATIVE [facility] Comment on above: Performed By: #### D RUGRPD ####[facility] [address] [place], [place] [address]Dr. Sandi Michelle PCP Negative Normal NEGATIVE [facility] Comment on above: Performed By: #### D RUGRPD ####[facility] [address] [place], [place] [address]Dr. Sandi Michelle PPX Negative Normal NEGATIVE [facility] Comment on above: Performed By: #### D RUGRPD ####[facility] [address] [place], [place] [address]Dr. Sandi Michelle TCA Negative Normal NEGATIVE [facility] Comment on above: Performed By: #### D RUGRPD ####[facility] [address] [id number]. Sandi Michelle THC Negative Normal NEGATIVE [facility] Comment on above: Performed By: #### D RUGRPD ####[facility] [address] [place], [place] [address]Dr. Sandi Michelle TYPE AND SCREENon 06-04-2022 TYPE AND SCREEN Negative Normal [facility] Comment on above: Performed By: #### T NS ####[facility] [address] [place], [place] [address]Dr. Sandi Michelle US PREG BIOPHY W NON [...] RIGO FISCHER Date: 2022-05-30 08:30 Normal [facility] GROUP B STREP CULTUREon S. agalactiae Ag Ql (Unsp spec) Culture Observations: NEGATIVE FOR GROUP B STREPTOCOCCUS. Normal [facility] Comment on above: Performed By: #### G BSCX ####[facility] [address] [place], [place] [address]Dr. Sandi Michelle US PREG BIOPHY W NON [...] by: RIGO FISCHER Date: 2022-05-23 09:41 Normal [facility] US PREG BIOPHY W NON STRESSo n [...] by: RIGO FISCHER Date: 2022-05-16 16:10 Normal [facility] US PREG GROWTHon 05-11-2022 US PREG GROWTH EXAMINATION: US PREG GROWTH, US PREG CERVICAL LENGTH HISTORY: Excessive growth affecting management of mother COMPARISON: Ultrasound growth 04/27/2022 FINDINGS: Heart Rate: 137.8 bpm (accession [id number]), 167.3 bpm (accession [id number]) Number: 1.0 Position: BREECH Amniotic Fluid Volume: [...] TIFF BAUMANN Date: 2022-05-11 19:19 Normal [facility] US PREG GROWTHon 04-27-2022 [...] TIFF BAUMANN Date: 2022-04-27 20:51 Normal [facility] GLUCOSE - 1HRon 03-15-2022 Glucose [Mass/Vol] 137 mg/dL Critically high 74-106 [facility] Comment on above: Performed By: #### C BC #### [facility] [address] [place] [address] Dr. Sandi Michelle HEMOGRAM AND PLATELon 2021 Hematocrit (Bld) [Volume fraction] 34.9 % Critically low 36.0-48.0 [facility] Comment on above: Performed By: #### C BC #### [facility] [address] [place] [address] Dr. Sandi Michelle Hemoglobin (Bld) [Mass/Vol] 11.5 g/dL Critically low 12.0-16.0 [facility] Comment on above: Performed By: #### C BC #### [facility] [address] [place] [address] Dr. Sadni Michelle MCH (RBC) [Entitic mass] 31.8 pg Normal 26.7-34.0 [facility] Comment on above: Performed By: #### C BC #### [facility] [address] [place] [address] Dr. Sandi Michelle MCHC (RBC) [Mass/Vol] 33.0 g/dL Normal 29.9-35.2 [facility] Comment on above: Performed By: #### C BC #### [facility] [address] [place] [address] Dr. Sandi Michelle MCV (RBC) [Entitic vol] 96.4 fL Normal 81.0-99.0 [facility] Comment on above: Performed By: #### C BC #### [facility] [address] [place] [address] Dr. Sandi Michelle PLT 225 103/ul Normal 150-450 [facility] Comment on above: Performed By: #### C BC #### [facility] [address] [place] [address] Dr. Sandi Michelle RBC 3.62 106/ul Critically low 4.20-5.40 [facility] Comment on above: Performed By: #### C BC #### [facility] [address] [place] [address] Dr. Sandi Michelle WBC 12.9 103/ul Critically high 4.0-11.0 The [facility] Comment on above: Performed By: #### C BC #### [facility] [address] [place] [address] Dr. Sandi Michelle CHLAMYDIA/GONOCOCCUS ALETHEA ( AB/URINE/PAPon 02-04-2022 Chlamydia trachomatis, ALETHEA Negative Normal Negative [facility] Comment on above: Performed By: #### C T/NGNA #### [facility] [address] [place] [address] Dr. Sandi Michelle Neisseria gonorrhoeae, ALETHEA Negative Normal Negative [facility] Comment on above: Performed By: #### C T/NGNA #### [facility] [address] [place] [address] Dr. Sandi Michelle PAP ACOG PANEL 2: 30 to 65on 02-04-2022 . . Normal [facility] Comment on above: Result Comment: Perf ormed at: WB Performed By: #### 4 [id number] ####[facility] [address] [address]DrDen Michelle Age Gdln ACOG Testing 30-65 Normal [facility] Comment on above: Performed By: #### 4 [id number] ####[facility] [address] [address]DrDen Michelle DIAGNOSIS: Comment Normal [facility] Comment on above: Result Comment: NEGA TIVE FOR INTRAEPITHELIAL LESION OR MALIGNANCY. Performed at: WB Performed By: #### 4 [id number] ####[facility] [address] [address]DrDen Michelle HPV Aptima Negative Normal Negative [facility] Comment on above: Result Comment: This nucleic acid amplification test detects fourteen high-risk HPV types (16,18,31,33,35,39,45,51,52,56,58,59,66,68) without differentiation. Performed at: =G Performed By: #### 4 [id number] ####[facility] [address] [place], [place] [address]DrDen Michelle Methodology: Comment Normal [facility] Comment on above: Result Comment: This liquid based ThinPrep(R) pap test was screened with the use of an image guided system. Performed at: WB Performed By: #### 4 [id number] ####[facility] [address] [address]DrDen Michelle Note: Comment Normal [facility] Comment on above: Result Comment: The Pap smear is a screening test designed to aid in the detection of premalignant and malignant conditions of the uterine cervix. It is not a diagnostic procedure and should not be used as the sole means of detecting cervical cancer. Both false-positive and false-negative reports do occur. . Performed at: WB Performed By: #### 4 [id number] ####[facility] [address] [address]DrDen Michelle Performed by: Comment Normal [facility] Comment on above: Result Comment: Vikas Mcclellan, Building Guard Deputy Sheriff (ASCP) Performed at: WB Performed By: #### 4 [id number] ####[facility] [address] [address]Dr. Sandi Michelle Specimen adequacy: Comment Normal [facility] Comment on above: Result Comment: Sati sfactory for evaluation. No endocervical component is identified. Performed at: WB Performed By: #### 4 [id number] ####[facility] [address] [phone]. Sandi Michelle VAGINITIS/VAGINOSIS DNA PROB Nicholas 02-03-2022 Kaitlynn species Negative Normal Negative [facility] Comment on above: Performed By: #### V AGINT ####[facility] [address] [address]Dr. Sandi Michelle Gardnerella vaginalis Negative Normal Negative [facility] Comment on above: Performed By: #### V AGINT ####[facility] [address] [address]Dr. Sandi Michelle Trichomonas vaginalis Negative Normal Negative [facility] Comment on above: Performed By: #### V AGINT ####[facility] [address] [address]Dr. Sandi Michelle US PREG ANATOMY SINGLEon US [...] RIGO FISCHER Date: 2022-02-01 19:32 Normal [facility] AFP MATERNAL FOR SPINA BIFID Aon 01-21-2022 AFP MoM 1.24 Normal [facility] Comment on above: Performed By: #### A FPMAT ####[facility] [address] [address]Dr. Sandi [facility] AFP Value 55.2 ng/mL Normal [facility] Comment on above: Performed By: #### A FPMAT ####[facility] [address] [phone]. Sandi Michelle AFP, Serum for Spina Bifida Report Normal [facility] Comment on above: Performed By: #### A FPMAT ####[facility] [address] [address]Dr. Sandi Michelle Comment Comment Normal [facility] Comment on above: Result Comment: Iesha Sullivan, Ph.D., [facility] Director . References: Available Upon Request. . Multiples Of Median Cutoffs For AFP Elevations Bhandari 2.5 Black 2.8 IDD 2.0 Twins 4.5 Abbreviation Definitions IDD - Insulin Dep Diabetes OSBR - Open Spina Bifida Risk . For further inquiries contact [employer] at [phone]. . This test was developed and its performance characteristics determined by [employer]. It has not been cleared or approved by the Food and Drug Administration. Performed By: #### A FPMAT ####[facility] [address] [phone]. Sandi Michelle Gest Age Collection Date 18.1 weeks Normal [facility] Comment on above: Performed By: #### A FPMAT ####[facility] [address] [phone]. Sandi Michelle Gestat, Age Based on JOSE [facility] Comment on above: Result Comment: 05/26 Recalculations are not recommended when gestational dating by LMP and ultrasound are within 10 days. Performed By: #### A FPMAT ####[facility] [address] [phone]. Sanjuanitasonia Michelle Insulin Dep Diabetes Comment Normal [facility] Comment on above: Result Comment: Not provided. . Performed By: #### A FPMAT ####[facility] [address] [phone]. Sanjuanitasonia Michelle Interpretation Comment Normal [facility] Comment on above: Result Comment: Inte rpretation: [...] Customer Services to discuss available options. The [employer] recommends amniocentesis be offered to women age 35 and older. Performed By: #### A FPMAT ####[facility] [address] [phone]. Sanjuanitasonia Michelle [age] Normal [facility] Comment on above: Performed By: #### A FPMAT ####[facility] [address] [place], [place] [address]Oo. Sandi Michelle Multiple Gestation No Normal [facility] Comment on above: Performed By: #### A FPMAT ####[facility] [address] [phone]. Sandi Michelle OSBR Risk 1 [place] 5748 Normal [facility] Comment on above: Performed By: #### A FPMAT ####[facility] [address] [place] [id number]. Sandi Michelle PDF . Normal [facility] Comment on above: Performed By: #### A FPMAT ####[facility] [address] [place] [address]Dr. Sandi Michelle Race Normal [facility] Comment on above: Performed By: #### A FPMAT ####[facility] [address] [place] [address]DrDen Michelle Test Results: Negative Normal [facility] Comment on above: Performed By: #### A FPMAT ####[facility] [address] [place] [address]DrDen Michelle HEP B SURFACE ANTIGEN SCREEN on 11-22-2021 HBsAg Screen Negative Normal Negative [facility] Comment on above: Performed By: #### H BSANS ####[facility] [address] [place] [address]DrDen Michelle HEPATITIS C VIRUS AB W/ REFL EX QUANTon 11-22-2021 HCV AB 0.1 s/co ratio Normal 0.0-0.9 [facility] Comment on above: Performed By: #### C BC #### [facility] [address] [address] [address] Sandi Michelle Interpretation: Comment Normal [facility] Comment on above: Result Comment: Nega tive Not infected with HCV, unless recent infection is suspected or other evidence exists to indicate HCV infection. Performed By: #### C BC #### [facility] [address] [place] [address] Dr. Sandi Michelle HIV 1 AND 2 WITH REFLEXon HIV Screen 4th Generation wRfx Non-Reactive Normal Non Reactive [facility] Comment on above: Result Comment: HIV Negative HIV-1/HIV-2 antibodies and HIV-1 p24 antigen were NOT detected. There is no laboratory evidence of HIV infection. Performed By: #### H IV12 ####[facility] [address] [place] [address]Dr. Sandi Michelle RPR QUANTon 11-22-2021 Rapid Plasma Reagin, Quant Non-Reactive Normal NonRea<1:1 [facility] Comment on above: Result Comment: Plea se Note: This test does not meet current guidelines for screening and diagnosis of syphilis. This test is intended for following treatment response in patients being treated for syphilis infection. To screen for syphilis infection, a reflex cascade that includes both RPR and a treponema-specific assay should be utilized, such as Treponema pallidum (Syphilis) Screening Braxton (977562) or Rapid Plasma Reagin (RPR) Test With Reflex to Quantitative RPR and Confirmatory Treponema pallidum Antibodies (716771). Performed By: #### C BC #### [facility] [address] [place] [address] Dr. Sandi Michelle RUBELLA AB IGGon 11-22-2021 Rubella Antibodies, IgG 9.33 index Normal Immune >0.99 [facility] Comment on above: Result Comment: Non- immune <0.90 Equivocal 0.90 - 0.99 Immune >0.99 Performed By: #### C BC #### [facility] [address] [place] [address] Dr. Sandi Michelle CBC AUTO DIFFon 11-21-2021 BASO # 0.0 103/ul Normal 0.0-0.1 [facility] Comment on above: Performed By: #### C BC #### [facility] [address] [place] [address] Dr. Sandi Michelle Basophils/100 WBC (Bld) 0.4 % Normal 0.2-2.0 [facility] Comment on above: Performed By: #### C BC #### [facility] [address] [place] [address] Dr. Sandi Michelle EO # 0.1 103/ul Normal 0.0-0.7 [facility] Comment on above: Performed By: #### C BC #### [facility] [address] [place] [address] Dr. Sandi Michelle Eosinophils/100 WBC (Bld) 0.6 % Critically low 0.9-7.0 [facility] Comment on above: Performed By: #### C BC #### [facility] [address] [place] [address] Dr. Sandi Michelle Erythrocyte distribution width (RBC) [Ratio] 11.9 % Normal 11.0-15.0 [facility] Comment on above: Performed By: #### C BC #### [facility] [address] [place] [address] Dr. Sandi Michelle Hematocrit (Bld) [Volume fraction] 37.1 % Normal 36.0-48.0 [facility] Comment on above: Performed By: #### C BC #### [facility] [address] [place] [address] Dr. Sandi Michelle Hemoglobin (Bld) [Mass/Vol] 12.2 g/dL Normal 12.0-16.0 [facility] Comment on above: Performed By: #### C BC #### [facility] [address] [place] [address] Dr. Sandi Michelle IG # 0.03 10e3/ul Normal 0.00-0.03 [facility] Comment on above: Performed By: #### C BC #### [facility] [address] [place] [address] Dr. Sandi Michelle IG % 0.4 % Normal 0.0-0.5 [facility] Comment on above: Performed By: #### C BC #### [facility] [address] [place] [address] Dr. Sandi Michelle LYMPH # 1.8 103/ul Normal 1.2-3.8 [facility] Comment on above: Performed By: #### C BC #### [facility] [address] [place] [address] Dr. Sandi Michelle Lymphocytes/100 WBC (Bld) 23.4 % Normal 20.5-60.0 [facility] Comment on above: Performed By: #### C BC #### [facility] [address] [place] [address] Dr. Sandi Michelle MANUAL DIFF REQ NO Normal [facility] Comment on above: Performed By: #### C BC #### [facility] [address] [place] [address] Dr. Sandi Michelle MCH (RBC) [Entitic mass] 31.4 pg Normal 26.7-34.0 [facility] Comment on above: Performed By: #### C BC #### [facility] [address] [place] [address] Dr. Sandi Michelle MCHC (RBC) [Mass/Vol] 32.9 g/dL Normal 29.9-35.2 [facility] Comment on above: Performed By: #### C BC #### [facility] [address] [place] [address] Dr. Sandi Michelle MCV (RBC) [Entitic vol] 95.6 fL Normal 81.0-99.0 [facility] Comment on above: Performed By: #### C BC #### [facility] [address] [place] [address] Dr. Sandi Michelle MONO # 0.5 103/ul Normal 0.3-0.8 [facility] Comment on above: Performed By: #### C BC #### [facility] [address] [place] [address] Dr. Sandi Michelle Monocytes/100 WBC (Bld) 6.6 % Normal 1.7-12.0 [facility] Comment on above: Performed By: #### C BC #### [facility] [address] [place] [address] Dr. Sandi Michelle NEUT # 5.4 103/ul Normal 1.4-6.5 [facility] Comment on above: Performed By: #### C BC #### [facility] [address] [place] [address] Dr. Sandi Michelle Neutrophils/100 WBC (Bld) 68.6 % Normal 43.0-75.0 [facility] Comment on above: Performed By: #### C BC #### [facility] [address] [place] [address] Dr. Sandi Michelle Platelet mean volume (Bld) [Entitic vol] 10.1 fL Normal 9.5-13.5 [facility] Comment on above: Performed By: #### C BC #### [facility] [address] [address] [address] Sandi Michelle PLT 237 103/ul Normal 150-450 [facility] Comment on above: Performed By: #### C BC #### [facility] [address] [address] [address] Sandi Michelle RBC 3.88 106/ul Critically low 4.20-5.40 [facility] Comment on above: Performed By: #### C BC #### [facility] [address] [address] [address] Sandi Michelle WBC 7.9 103/ul Normal 4.0-11.0 [facility] Comment on above: Performed By: #### C BC #### [facility] [address] [address] [address] Sandi Michelle CULTURE URINEon 11-21-2021 CULTURE URINE Culture Observations : LIGHT GROWTH OF MIXED GENITAL MENDEZ. NO POTENTIAL PATHOGENS SEEN. Normal [facility] Comment on above: Performed By: #### U RCX #### [facility] [address] [address] [address] Sandi Michelle GLYCOHEMOGLOBIN A1Con 2021 ADA RECOMMENDATION SEE BELOW Normal [facility] Comment on above: Result Comment: ADA RECOMMENDED LIMIT 4.0 - 6.0 ADA THERAPEUTIC TARGET < 7.0 ACTION SUGGESTED > 7.0 Performed By: #### A 1C ####[facility] [address] [place] [address]Dr. Sandi Michelle Glucose [Mass/Vol] 103 mg/dL Normal [facility] Comment on above: Performed By: #### A 1C ####[facility] [address] [place] [id number]. Sandi Michelle HbA1c (Bld) [Mass fraction] 5.2 % Normal 4.5-6.2 [facility] Comment on above: Performed By: #### A 1C ####[facility] [address] [place], [place] [address]CjDr. Sandi Michelle TYPE AND SCREENon 11-21-2021 TYPE AND SCREEN Negative Normal [facility] Comment on above: Performed By: #### T NS #### [facility] [address] [address] [address] Sandi Michelle US PREG TVon 11-03-2021 [...] TIFF BAUMANN Date: 2021-11-03 07:19 Normal [facility] PREG QUANT HCGon 10-14-2021 HCG QUANT 469 mIU/mL Normal [facility] Comment on above: Performed By: #### P REGQNT #### [facility] [address] [place] [address] Dr. Sandi Michelle HCG RANGE SEE BELOW Normal [facility] Comment on above: Result Comment: 5-50 0-1 WEEK 40-300 1-2 WEEKS 100-1,000 2-3 WEEKS 500-6,000 3-4 WEEKS 5,000-200,000 1-2 MONTHS 10,000-100,000 2-3 MONTHS 3,000-50,000 2ND TRIMESTER 1,000-50,000 3RD TRIMESTER Performed By: #### P REGQNT #### [facility] [id number] Sandi Michelle PREG QUANT HCGon 10-12-2021 HCG QUANT 184 mIU/mL Normal [facility] Comment on above: Performed By: #### C BC #### [facility] [address] [place], [place] [address] Dr. Sandi Michelle HCG RANGE SEE BELOW Normal [facility] Comment on above: Result Comment: 5-50 0-1 WEEK 40-300 1-2 WEEKS 100-1,000 2-3 WEEKS 500-6,000 3-4 WEEKS 5,000-200,000 1-2 MONTHS 10,000-100,000 2-3 MONTHS 3,000-50,000 2ND TRIMESTER 1,000-50,000 3RD TRIMESTER Performed By: #### C BC #### [facility] [address] [place], [place] [address] Dr. Sandi Michelle PROTEIN C FUNC ACTIVITYon Prt C Activity (Chromogenic) 130 % Normal [facility] Comment on above: Result Comment: Refe rence Range: 17 years and older: 73 - 180 Effective August 10, 2021 Prt C Activity, (Chromogenic) will be made non-orderable. This will not affect any profile that includes Prt C Activity (Chromogenic). [employer] offers 160629 Protein C Functional. For more information please contact your local [facility] Ppap Coordinator. Performed By: #### P RCACT ####[facility] [address] [place], [place] [address]SqDr. Sandi Michelle FACTOR V LEIDEN MUTATION CIARAN LYSISon 07-27-2021 Factor V Leiden Comment Normal [facility] Comment on above: Result Comment: Resu lt: c.1601G>A (p.Axa100Qfh) - Not Detected . This result is not associated with an increased risk for venous thromboembolism. See Additional Clinical Information and Comments. Additional Clinical Information: Venous thromboembolism is a multifactorial disease influenced by genetic, environmental, and circumstantial risk factors. The c.1601G>A (p. Tcd623Kps) variant in the F5 gene, commonly referred [...] c.*97G>A variant and Factor V Leiden (PMID: 46345005). Additional risk factors include but are not [...] health care providers to discuss results at [phone] (3630). . Test Details: Variant Analyzed: c.1601G>A (p. Opi470Lyf), referred to as Factor V Leiden . [...] developed and its performance characteristics determined by [employer]. It has not been cleared or approved by the Food and Drug Administration. . References: Masoud S, Hawa AK, Randy R, Moses WW, Luis A JH; ACMG Professional Practice and Guidelines Committee. Addendum: [place] [employer] consensus statement on factor V Leiden mutation testing. [place] [employer]. 2020Sep 26. doi: 10.1038/v98677-281-31638-f. PMID: 75680060. . Miriam GAMING. Factor V Leiden Thrombophilia. 1998December 05 [Updated 2017Jul 28]. In: Jv MP, Delia HH, Pagon RA, et al., editors. Jovita(Wale) [Internet]. [place]): [facility], [place]; 2381-6547. Available from: https://www.ncbi.nlm.nih.gov/books/VWU7315/ . Jonh S, Hawa AK, Francisco Javier X, Leobardo B, Ash EB, Deysi P, Mari CS; [facility] Laboratory Binding C[employer] Committee. Venous thromboembolism laboratory testing (factor V Leiden and factor II c.*97G>A), 2018 update: a technical standard of the [place] [employer] and [employer] (ACMG). [place] [employer]. 2018 Jun;20(12):4769-0602. doi: 10.1038/[id number]-g. Epub 2017Apr 28. PMID: 85613174. . Martha Guillen, PhD, FAC Lindsay Jaquez, PhD, FACMG Pete Brown, PhD, FAC Geronimo Mcdaniel, PhD, FAC W Khushbu Hays, PhD, FAC Maureen Mancilla, PhD, [facility] Performed By: #### F VPCR ####[facility] [address] [place] [address]Dr. Sandi Michelle ANTITHROMBIN ACTIVITYon Antithrombin Activity 102 % Normal 75-135 [facility] Comment on above: Result Comment: Dire ct Xa inhibitor anticoagulants such as rivaroxaban, apixaban and edoxaban will lead to spuriously elevated antithrombin activity levels possibly masking a deficiency. Performed By: #### C BC #### [facility] [address] [address] [address] Sandi Michelle B-2 GLYCOPROTEIN AB IGGon Beta-2 Glycoprotein I Ab, IgG <9 Normal 0-20 [facility] Comment on above: Result Comment: The reference interval reflects a 3SD or 99th percentile interval, which is thought to represent a potentially clinically significant result in accordance with the International Consensus Statement on the classification criteria for definitive antiphospholipid syndrome (APS). J Thromb Haem 2006;4:295-306. Performed By: #### B 2GPG ####[facility] [address] [place] [address]Dr. Sandi Michelle B2-GLYCOPROTEIN 1 AB IGMon 0 07-25-2021 Beta-2 Glycoprotein I Ab, IgM <9 Normal 0-32 [facility] Comment on above: Result Comment: The reference interval reflects a 3SD or 99th percentile interval, which is thought to represent a potentially clinically significant result in accordance with the International Consensus Statement on the classification criteria for definitive antiphospholipid syndrome (APS). J Thromb Haem 2006;4:295-306. Performed By: #### B GLYIGM ####[facility] [address] [place], [place] [address]Dr. Sandi Michelle LUPUS ANTICOAGULANT W/REFLEX on 07-24-2021 aPTT Coag (Bld) [Time] 30.9 s Normal 0.0-51.9 [facility] Comment on above: Performed By: #### L UPUSRF ####[facility] [address] [place], [place] [address]Dr. Sandi Michelle dRVVT 33.0 sec Normal 0.0-47.0 [facility] Comment on above: Performed By: #### L UPUSRF ####[facility] [address] [place], [place] [address]Dr. Sandi Michelle Interpretation Comment: Normal [facility] Comment on above: Result Comment: No l upus anticoagulant was detected. Performed By: #### L UPUSRF ####[facility] [address] [place], [place] [address]Dr. Sandi Michelle PROTEIN S ANTIGENon 07-24-20 21 Protein S, Free 104 % Normal 61-136 [facility] Comment on above: Performed By: #### P RTSAG ####[facility] [address] [place] [address]Dr. Sandi Michelle Protein S, Total 90 % Normal 60-150 [facility] [place] [facility] Comment on above: Result Comment: This test was developed and its performance characteristics determined by [employer]. It has not been cleared or approved by the Food and Drug Administration. Performed By: #### P RTSAG ####[facility] [address] [place], [place] [address]Dr. Sandi Michelle PROTEIN S, FUNCTIONALon 12-3 Protein S-Functional 107 % Normal 63-140 [facility] Comment on above: Result Comment: Prot ein S activity may be falsely increased (masking an abnormal, low result) in patients receiving direct Xa inhibitor (e.g., rivaroxaban, apixaban, edoxaban) or a direct thrombin inhibitor (e.g., dabigatran) anticoagulant treatment due to assay interference by these drugs. Performed By: #### C BC #### [facility] [address] [address] [address] Sandi Michelle ANTICARDIOLIPIN AB (JEANIE) IGG on 07-23-2021 Anticardiolipin Ab,IgG,Qn <9 Normal 0-14 [facility] Comment on above: Result Comment: Nega tive: <15 Indeterminate: 15 - 20 Low-Med Positive: >20 - 80 High Positive: >80 Performed By: #### C ARDLIP #### [facility] [address] [address] [address] Sandi Michelle ANTICARDIOLIPIN AB (JEANIE) IGM on 07-23-2021 Anticardiolipin Ab,IgM,Qn 12 MPL U/mL Normal 0-12 [facility] Comment on above: Result Comment: Nega tive: <13 Indeterminate: 13 - 20 Low-Med Positive: >20 - 80 High Positive: >80 Performed By: #### C ARDIGM ####[facility] [address] [place] [address]Dr. Sandi Michelle Vital Signs Date Time Vital Sign Value Performing Clinician Facility 09-26-2024 11:02-0500 Body mass index (BMI) [Ratio] 30.63 kg/m2 [employer] DO Work Phone: [facility] 09-26-2024 11:02-0500 Body weight 86.09 kg [employer] Work Phone: [facility] 09-26-2024 11:02-0500 Diastolic blood pressure 76 mm[Hg] [employer] Work Phone: [facility] 09-26-2024 11:02-0500 Systolic blood pressure 116 mm[Hg] Lee Keyona DO Work Phone: [facility] 09-12-2024 14:53-0500 Body mass index (BMI) [Ratio] 30.02 kg/m2 Lee Keyona DO Work Phone: [facility] 09-12-2024 14:53-0500 Body weight 84.37 kg Lee Keyona DO Work Phone: [facility] 09-12-2024 14:53-0500 Diastolic blood pressure 70 mm[Hg] Lee Keyona DO Work Phone: [facility] 09-12-2024 14:53-0500 Systolic blood pressure 120 mm[Hg] Lee Keyona DO Work Phone: [facility] 08-29-2024 15:30-0500 Body mass index (BMI) [Ratio] 29.92 kg/m2 Lee Keyona DO Work Phone: [facility] 08-29-2024 15:30-0500 Body weight 84.1 kg Lee Keyona DO Work Phone: [facility] 08-29-2024 15:30-0500 Diastolic blood pressure 70 mm[Hg] Lee Keyona DO Work Phone: [facility] 08-29-2024 15:30-0500 Systolic blood pressure 120 mm[Hg] Lee Keyona DO Work Phone: [facility] 08-09-2024 09:39-0500 Body mass index (BMI) [Ratio] 30.18 kg/m2 Lee Keyona DO Work Phone: [facility] 08-09-2024 09:39-0500 Body weight 84.82 kg Lee Keyona DO Work Phone: [facility] 08-09-2024 09:39-0500 Diastolic blood pressure 64 mm[Hg] Lee Keyona DO Work Phone: [facility] 08-09-2024 09:39-0500 Systolic blood pressure 114 mm[Hg] Lee Keyona DO Work Phone: [facility] 07-12-2024 09:59-0500 Body mass index (BMI) [Ratio] 29.39 kg/m2 Lee Keyona DO Work Phone: [facility] 07-12-2024 09:59-0500 Body weight 82.61 kg Lee Keyona DO Work Phone: [facility] 07-12-2024 09:59-0500 Diastolic blood pressure 68 mm[Hg] Lee Keyona DO Work Phone: [facility] 07-12-2024 09:59-0500 Systolic blood pressure 108 mm[Hg] Lee Keyona DO Work Phone: [facility] 06-11-2024 16:44-0500 Body mass index (BMI) [Ratio] 28.59 kg/m2 Lee Keyona DO Work Phone: [facility] 06-11-2024 16:44-0500 Body weight 80.34 kg Lee Keyona DO Work Phone: [facility] 06-11-2024 16:44-0500 Diastolic blood pressure 70 mm[Hg] Lee Keyona DO Work Phone: [facility] 06-11-2024 16:44-0500 Systolic blood pressure 108 mm[Hg] Lee Keyona DO Work Phone: [facility] 05-08-2024 15:11-0400 Body mass index (BMI) [Ratio] 27.76 kg/m2 Lee Keyona DO Work Phone: [facility] 05-08-2024 15:11-0400 Body weight 78.02 kg Lee Keyona DO Work Phone: [facility] 05-08-2024 15:11-0400 Diastolic blood pressure 70 mm[Hg] Lee Keyona DO Work Phone: [facility] 05-08-2024 15:11-0400 Systolic blood pressure 112 mm[Hg] Lee Keyona DO Work Phone: [facility] 04-05-2024 14:24-0400 Body mass index (BMI) [Ratio] 27.76 kg/m2 [facility] 04-05-2024 14:24040 Body weight 78.02 kg [facility] 04-05-2024 14:240400 Diastolic blood pressure 68 mm[Hg] [facility] 04-05-2024 14:040 Systolic blood pressure 118 mm[Hg] [facility] 01-21-2022 03:06040 Body weight 72.[address] LEE RAND [facility] Comment on above: Performed By: #### A FPMAT ####[facility] [address] [place], [place] [address]KjDr. Sandi Michelle Encounters Encounter Date Encounter Type Care Provider Facility Start: 09-26-2024 End: 09-26-2024 Bamboo flowsheet Lee Keyona DO Work Phone: [facility] Start: 09-26-2024 End: 09-26-2024 Bamboo [...] flow sheet Lee Keyona DO Work Phone: [facility] Comment on above: Second trimester pre [...] Result Encounter Lee Keyona DO Work Phone: [facility] External Department Unsolicited Start: 07-12-2024 End: 07-12-2024 Bamboo flowsheet Lee Keyona DO Work Phone: [facility] Start: 07-12-2024 End: 07-12-2024 Bamboo flowsheet Lee Keyona DO Work Phone: [facility] Start: 07-12-2024 End: 07-12-2024 flow sheet Lee Keyona DO Work Phone: [facility] Comment on above: Second [...] Routine [facility] [address] [place] [address] Lee Rand, DO [address] [place] [address] [facility] Start: 09-26-2024 End: 09-26-2024 Patient encounter procedure [facility] Comment on above: Arrived Start: 09-12-2024 End: 09-12-2024 Patient encounter procedure 09/12/2024 2:30 PM EST Routine [facility] [address] [place] [address] Lee Rand, DO [address] [place], [place] [id number] [facility] Start: 08-29-2024 End: 08-29-2024 Patient encounter procedure [facility] Comment on above: Arrived Start: 08-29-2024 End: 08-29-2025 US biophysical profile w non stress test US biophysical profile w non stress test Imaging Routine Diet controlled gestational diabetes mellitus (GDM) in third trimester Expected: 08/29/2024 (Approximate), Expires: 08/29/2025 [facility] Work Phone: Comment on above: Expected: 08/29/2024 (Approximate), Expires: 08/29/2025 Start: 08-09-2024 End: 08-09-2024 Patient encounter procedure 08/09/2024 9:10 AM EST Routine [facility] [address] [facility] [place] [id number] Lee Rand, DO [address] [place] [address] [facility] Start: 07-31-2024 End: 07-31-2024 Patient encounter procedure 07/31/2024 1:00 PM EST Office Visit [facility] [address] [facility] [place] [address] Lee Rand, DO [address] [place] [address] [facility] Start: 07-12-2024 End: 07-12-2025 CBC panel - Blood by Automated count CBC Lab Routine Diabetes mellitus screening Expected: 07/12/2024 (Approximate), Expires: 07/12/2025 [facility] Work Phone: Comment on above: Expected: 07/12/2024 (Approximate), Expires: 07/12/2025 Start: 07-12-2024 End: 07-12-2025 Measurement of glucose 1 hour after glucose challenge for glucose tolerance test Glucose tolerance, 1 hour Lab Routine Diabetes mellitus screening Expected: 07/12/2024 (Approximate), Expires: 07/12/2025 [facility] Comment on above: Expected: 07/12/2024 (Approximate), Expires: 07/12/2025 Start: 07-12-2024 End: 07-12-2024 Patient encounter procedure [facility] Comment on above: Arrived Start: 06-11-2024 End: 06-11-2024 Patient encounter procedure 06/11/2024 3:50 PM EST Routine [facility] [address] [facility] [place] [place] [id number] Lee Rand, [address] [place] [address] [facility] Start: 06-11-2024 End: 12-09-2024 Alpha fetoprotein, maternal Alpha fetoprotein, maternal Lab Routine Second trimester Expected: 06/11/2024 (Approximate), Expires: 12/09/2024 [facility] Comment on above: Expected: 06/11/2024 (Approximate), Expires: 12/09/2024 Start: 06-11-2024 End: 06-11-2025 US for US OB ANATOMY SINGLE W US OB CERVICAL LENGTH Imaging Routine Screening, , for anatomic survey Expected: 06/11/2024 (Approximate), Expires: 06/11/2025 [facility] Comment on above: Expected: 06/11/2024 (Approximate), [...] gestational age Expected: 04/05/2024 (Approximate), Expires: 04/05/2025 [facility] Comment on above: Expected: 04/05/2024 (Approximate), Expires: 04/05/2025 Start: 04-05-2024 End: 04-05-2025 US Pelvis transvaginal US OB transvaginal Imaging Routine Missed menses Expected: 04/05/2024 (Approximate), Expires: 04/05/2025 [facility] Comment on above: Expected: 04/05/2024 (Approximate), Expires: 04/05/2025 Bacteria identified in Urine by Culture Urine culture Microbiology Routine Missed menses Ordered: 04/05/2024 [facility] Comment on above: Ordered: 04/05/2024 CBC W Auto Different ial panel - Blood CBC and differential Lab Routine Missed menses Ordered: 04/05/2024 [facility] Comment on above: Ordered: 04/05/2024 CHLAMYDIA TRACHOMATI S (GENITO/STI) CHLAMYDIA TRACHOMATIS (GENITO/STI) Lab Routine STD exposure Ordered: 06/11/2024 [facility] Comment on above: Ordered: 06/11/2024 Hemoglobin A1c/Hemoglobin.total in Blood Hemoglobin A1c Lab Routine Missed menses Ordered: 04/05/2024 [facility] Comment on above: Ordered: 04/05/2024 Hepatitis B virus surface Ag [Presence] in Serum or Plasma by Immunoassay Hepatitis B surface antigen Lab Routine Missed menses Ordered: 04/05/2024 [facility] Comment on above: Ordered: 04/05/2024 Hepatitis C virus Ab [Presence] in Serum or Plasma by Immunoassay Hepatitis C antibody Lab Routine Missed menses Ordered: 04/05/2024 [facility] Comment on above: Ordered: 04/05/2024 HIV-1/HIV-2 antigen/antibody combination immunoassay HIV-1 and HIV-2 antibodies Lab Routine Missed menses Ordered: 04/05/2024 [facility] Comment on above: Ordered: 04/05/2024 Neisseria gonorrhoea e DNA [Presence] in Unspecified specimen by ALETHEA with probe detection Neisseria gonorrhea DNA probe, direct Lab Routine STD exposure Ordered: 06/11/2024 [facility] Comment on above: Ordered: 06/11/2024 Reagin Ab [Presence] in Serum by RPR RPR Lab Routine Missed menses Ordered: 04/05/2024 [facility] Comment on above: Ordered: 04/05/2024 Rubella antibody, IgG Rubella an tibody, IgG Lab Routine Missed menses Ordered: 04/05/2024 [facility] Comment on above: Ordered: 04/05/2024 SURESWAB(R) ADVANCED VAGINITIS PLUS, TMA SURESWAB(R) ADVANCED VAGINITIS PLUS, TMA Pathology and Cytology Routine Vaginal discharge Ordered: 06/11/2024 [facility] Work Phone: Comment on above: Ordered: 06/11/2024 Payers Date Payer Category Payer [facility] [employer] [id number] 2024 Unknown [id number] 2020 Managed Care HMO (unspecified) [id number] 1991 Unknown [id number] 2.16.840.1.434719.3.579.2. 593 1991 Unknown [id number] 2.16.840.1.775298.3.579.2. 593 1991 Unknown [id number] 2.16.840.1.626742.3.579.2. 593 1991 Unknown [id number] 2.16.840.1.519156.3.579.2. 593 1991 Unknown [id number] 2.16.840.1.576420.3.579.2. 593 1991 Unknown [id number] 2.16.840.1.007535.3.579.2. 593 1991 Unknown [id number] 2.16.840.1.982621.3.579.2. 593 1991 Unknown [id number] 2.16.840.1.789922.3.579.2. 593 1991 Unknown [id number] 2.16.840.1.667666.3.579.2. 593 1991 Unknown [id number] 2.16.840.1.085953.3.579.2. 593 1991 Unknown [id number] 2.16.840.1.882895.3.579.2. 593 1991 Unknown [id number] 2.16.840.1.835424.3.579.2. 593 1991 Unknown [id number] 2.16.840.1.034169.3.579.2. 593 1991 Unknown [id number] 2.16.840.1.217201.3.579.2. 593 1991 Unknown [id number] 2.16.840.1.656539.3.579.2. 593 1991 Unknown [id number] 2.16.840.1.847901.3.579.2. 593 1991 Unknown [id number] 2.16.840.1.825633.3.579.2. 593 1991 Unknown [id number] 2.16.840.1.886215.3.579.2. 593 1991 Unknown [id number] 2.16.840.1.236837.3.579.2. 593 1991 Unknown [id number] 2.16.840.1.491290.3.579.2. 593 1991 Unknown [id number] 2.16.840.1.580919.3.579.2. 593 1991 Unknown [id number] 2.16.840.1.017933.3.579.2. 1259 1991 Unknown [id number] 2.16.840.1.760267.3.579.2. 1259 1991 Unknown [id number] 2.16.840.1.801458.3.579.2. 1259 1991 Unknown [id number] 2.16.840.1.852216.3.579.2. 9 1991 Unknown [id number] 2.16.840.1.588894.3.579.2. 1259 1991 Unknown [id number] 2.16.840.1.920707.3.579.2. 9 1991 Unknown [id number] 2.16.840.1.989678.3.579.2. 1259 1991 Unknown [id number] 2.16.840.1.325958.3.579.2. 9 1991 Unknown [id number] 2.16.840.1.514332.3.579.2. 1259 1991 Unknown [id number] 2.16.840.1.958737.3.579.2. 1259 1959 Private Health Insurance [id number] Social History Date Type Detail Facility Start: 02-08-2023 Tobacco smoking stat [facility] Never smoked tobacco [facility] Start: 02-08-2023 Tobacco use and exposure Smokeless t obacco non-user [facility] Start: 04-05-2024 End: 09-12-2024 Alcoholic beverage intake Lifetime non-drinker (finding) [facility] Start: 07-19-2023 End: 01-02-2024 History of Social function [facility] Start: 07-19-2023 End: 01-02-2024 Tobacco use panel [facility] Start: 02-18-2024 [facility] Kory jules Start: 1990 Sex assigned at Female [facility] Start: 02-06-2023 Gender identity Identifies as female gender (finding) [facility] Start: 02-06-2023 Sexual orientation Heterosexual (fin ding) [facility] Medical Equipment Procedure Code Equipment Code Equipment Origin al Text Equipment Identifier Dates 1 strip by In Vi tro route Daily Use in the morning prior to breakfast, 1 hour after each meal for a total of 4times daily. [id number] Start: 08-09-2024 End: 09-12-2024 1 each by In Vit ro route Daily Use to check FSBS four times daily [id number] Start: 08-09-2024 End: 09-12-2024 Goals Date Patient Goal Desired Activity /State Personal health goal Clinical Notes 06-04-2022 to 09-26-2024 Tere Hu, [facility] - 09/26/2024 11:10 AM David Hu, [facility] - 09/12/2024 2:30 PM David Hu, [facility] - 08/29/2024 3:20 PM Corbin Parsons, [facility] - 08/09/2024 9:10 AM EST Note [...] nursing note reviewed. Exam conducted with a foreign correspondent present. Vitals: Estimated body mass index is [...] kick counts three times a day. At [facility] pt found out VSD noted- pt to return to [facility] on 10/03 for echo. Orders Placed This Encounter Procedures POCT urinalysis dipstick manually resulted Follow Up: Patient is to return to office in 2 week for routine OB appointment. Documented by Tere Hu LPN on behalf of: Lee Rand DO documented in this encounter [facility] 09-12-2024 History of Presen t illness Narrative [...] nursing note reviewed. Exam conducted with a foreign correspondent present. Vitals: Estimated body mass index is [...] Lee Rand DO documented in this encounter [facility] 08-29-2024 History of Presen t illness Narrative [...] nursing note reviewed. Exam conducted with a foreign correspondent present. Vitals: Estimated body mass index is [...] Lee Rand DO documented in this encounter [facility] 08-09-2024 History of Presen t illness [...] Bo Jose Ramon Cancer Paternal Grandmother December aDvis Arthritis Paternal Grandmother December Davis Hypertension Paternal [...] nursing note reviewed. Exam conducted with a foreign correspondent present. Vitals: Estimated body mass index is [...] Lee Rand DO documented in this encounter [facility] 07-12-2024 History of Presen t illness [...] nursing note reviewed. Exam conducted with a foreign correspondent present. Vitals: Estimated body mass index is [...] with patient and she is scheduled with [facility] for confirmation of complete placenta previa. Patient to return to clinic in 4 weeks for routine OB. Documented by Miranda Parsons LPN on behalf of: Lee Rand DO documented in this encounter [facility] 06-11-2024 History of Presen t illness [...] nursing note reviewed. Exam conducted with a foreign correspondent present. Vitals: Estimated body mass index is [...] Lee Rand DO documented in this encounter [facility] 05-08-2024 History of Presen t illness [...] nursing note reviewed. Exam conducted with a foreign correspondent present. Vitals: Estimated body mass index is [...] or undercooked meat, and [facility]. Patient has been consulted regarding any further do's and don'ts of . Patient voiced understanding and all questions and concerns were answered. Orders Placed This Encounter Procedures POCT urinalysis dipstick manually resulted Follow Up: Patient is to return in 4 weeks for routine OB appointment. Documented by Tere Hu LPN on behalf of: Lee Rand DO documented in this encounter [facility] 04-05-2024 History of Presen t illness [...] or undercooked meat, and stay away from [facility]. Patient has also been advised to not [...] by: Janis Hylton documented in this encounter [facility] 06-04-2022 Note OPERATIVE NOTE OPERATION DATE: 06/04/2022 PROCEDURE: Primary low transverse section. PREOPERATIVE DIAGNOSIS: 1. Intrauterine at 37 5/7 weeks. 2. Breech presentation. POSTOPERATIVE DIAGNOSIS: 1. Intrauterine at 37 5/7 weeks. 2. Breech presentation. 3. 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 SURGEON: Lee Rand DRAFTER TOOL DESIGN: SCARLET Albert URINE OUTPUT: Yellow and clear. [...] the Recovery Room in stable condition. 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 Start Date End Date Fito Cueto MD Critical access hospital [facility] [place] [address] PCP - General Family Medicine 02/09/23 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 Start Date End Date Fito Cueto MD [address] [facility] [place] [address] PCP - General Family Medicine 02/09/23 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 Start Date End Date Fito Cueto MD [address] [facility] [place] [address] PCP - General Family Medicine 02/09/23 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 Start Date End Date Fito Cueto MD [address] [facility] [place] [address] PCP - General Family Medicine 02/09/23 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 Start Date End Date Fito Cueto MD [address] [facility] [place] [address] PCP - General Family Medicine 02/09/23 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 Start Date End Date Fito Cueto MD [address] [facility] [place] [address] PCP - General Family Medicine 02/09/23 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 Start Date End Date Fito Cueto MD [address] [facility] [place] [address] PCP - General Family Medicine 02/09/23 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 [facility] [employer] [facility]. provides no warranty or guarantee of the accuracy or completeness of information in this document."
--- NOTE | 2024-10-03 10:30 | PM.OBPRCCS ---
Procedure Pre-op/Post-op diagnoses: Pre-Op/Post-Op Diagnoses Operation Date: 10/03/24 08:30 <No data on this case meets the specified criteria> Procedure: Procedures Operation Date: 10/03/24 08:30 Actual Procedure Side Surgeon p with bilateral salpingectomy Not Applicable Ana De León MD Estimated blood loss (mL): 800 Disposition: floor Anesthesia type: Spinal Narrative: PATIENT PRESENTED TO MATERNITY AT 34 PLUS WEEKS, WITH PLACENTA PREVIA, BLEEDING AND IN LABOR. BABY CAT I. URGENT CS CALLED. DESIRES PERMANENT STERILIZATION DISCUSSED WITH DR. FREDERICK. EVEN IF THIS BABY DIES, DESIRES PERMANENT STERILIZATION. CONSENTS SIGNED. SPINAL ADMINISTERED IN OR. PLACED IN SUPINE POSITION WITH LEFT FLANK ROLL TO DEFLECT THE URTERUS OFF OF THE GREAT VESSELS. WILDER AND SCD'S ON. PREPPED AND DRAPPED. TIME OUT PERFORMED AND CONFIRMED. ANESTHESIA LEVEL ESTABLISHED. LTCS INCISION THROUGH THE PRIOR INCISION SCAR. INCISION CARRIED DOWN TO FASCIA. FASCIA NICKED IN THE MIDLINE AND INCISION EXTENDED LATERALLY TO THE FULL EXTENT OF THE SKIN INCISION. SUPERIOR AND INFERIOR BORDERS OF FASCIA DISCETED FROM MUSCLE WITH BOVIE ON CUTTING CURRENT. PERITONEUM IDENTIFIED, TENTED AND ENTER BLUNTLY. OPEING MANUALLY EXTENDED. LOWER UTERINE SEGMENT INCISED. PLACENTA ANTERIOR, INCRETA AND PARTIAL PERCRETA. DIFFICULTY FINDING BREECH. HAD TO T INCISION ON UTERUS. BREECH DELIVERED TO LEVEL OF HEAD. HEAD FLEXED TO BE DELIVERED. BABY BOY HANDED TO DR. HEADLEY FOR ASSESSMENT AND CARE. NOT BREATHING ON DELIVERY. BILATERAL SALPINGECTOMY PERFORMED WITH LIGATURE WITHOUT COMPLICATION. OVARIES NORMAL. PLACENTA REMOVED IN PIECES. AT FUNDUS PERCRETA OBSERVED AND REMOVAL OF PLACENTA REMOVED MYOMETRIUM WELL. PLACENTA SENT TO PATHOLOGY. UTERUS CLOSED WITH RAYMOND LAYER OF O VICRYL. INDIVIDUAL BLEEDING SITES BOVIED. THREE SINGLE STITCHES REQUIRED FOR HEMOSTASIS OF BLEEDERS. FUNDUS IMBRICATED TO PREVENT BLEEDING FROM PERCRETA SITE. EBL 800. LAP SPONGE, NEEDLES AND INSTRUMENTS CORRECT TIMES TWO. POSTERIOR AND ANTERIOR CUL DE SAC IRRIGATED. NO BLEEDING OBSERVED. FASCIA CLOSED WITH O VICRYL IN SINGLE LAYER. URINE CLEAR. SUBCU TISSUE CLOSED WITH RUNNING STITCH OF 3-O VICRYL, SKIN CLOSED WITH SUBCU 4-0 MONOCRYL. DRESSING APPLIED. PATIENT RETURNED TO LABOR ROOM 252. BABY DOING FINE. [facility] CALLED FOR TRANSPORT DUE TO PREMATURITY. NO OVERT ISSUE AFTER INITIAL NRP INTERVENTION.
[2024-10-03] MEDS: OXYTOCIN/0.9 % SODIUM CHLORIDE 20 UNITS/1,000 ML PLAST..BAG 125 UNIT IV (10:44)
[2024-10-03] MEDS: 0.9 % SODIUM CHLORIDE 250 ML 10 ML IV (10:45)
--- NOTE | 2024-10-03 11:26 | PC.NURSE ---
Beto Zuniga at bedside verifying PRBC with this RN, unit #1 infusion started. patient tolerating well
--- NOTE | 2024-10-03 11:43 | PC.NURSE ---
Blood transfusion rate increased to 500ml/hr per INTERNATIONAL MARKETING SPECIALIST at this time
--- NOTE | 2024-10-03 12:29 | PC.NURSE ---
1229 Second unit PRBC started. Patient tolerating well. patient alert, active, lips pinking, tolerating PO water at this time. RN remains at bedside, and mother at bedside as well. updated on condition per Dr. Santos
[2024-10-03] MEDS: METHYLERGONOVINE MALEATE 0.2 MG/ML AMPULE IM (12:31)
[2024-10-03] MEDS: KETOROLAC TROMETHAMINE 30 MG/ML VIAL IVP (13:02)
--- NOTE | 2024-10-03 13:24 | PC.NURSE ---
1324 3rd unit PRBC verified and infusing without complication in right hand 18G PIV. Physician remains in department. Assessment unchanged.
--- NOTE | 2024-10-03 13:24 | PM.OBPN ---
OB - PN: Subj Subjective Interval history: PATIENT FEELING COMFORTABLE UNLESS RECEIVING FUNDAL CHECK. INTERACTING WITH FAMILY. Patient comments: pain well controlled [place] status: other (BABY BEING TRANSFERRED TO NICU) Exam Constitutional Vital Signs, click to edit/add: Last Vital Signs Temp 98.0 F 10/03/24 12:39 Pulse 102 H 10/03/24 13:19 Resp 12 10/03/24 13:19 BP 88/60 L 10/03/24 13:20 Pulse Ox 100 10/03/24 13:19 O2 Del Method Room Air 10/03/24 13:19 GI Common normals: Normal to inspection, nondistended, normoactive bowel sounds present (ABDOMENT SOFT BY MY EXAM, DRESSING DRY AND INTACT, NORMAL RUBRA ON VAGINAL ) Inspection: normal to inspection Common normals: no CVA tenderness Bladder/kidney exam: catheter in place Catheter type (Female): urethral (GOOD URINE OUTPUT, CLEAR YELLOW) Uterus palpation: other (UTERUS FIRM IT WAS IN OR GIVEN THERE WAS PERCRETA, S/P METHERGINE 0.2) Results Labs Labs: Short CBC 10/03/24 Range/Units 08:15 WBC 9.9 (4.0-11.0) 10^3/uL Hgb 12.1 (12.0-16.0) g/dL Hct 36.5 (36.0-48.0) % Plt Count 186 (150-450) 10^3/uL Urine 10/03/24 Range/Units 07:50 Urine Color Lt. yellow (YELLOW) Urine Clarity Clear (CLEAR) Urine pH 6.0 (5.0-9.0) Ur Specific [place] 1.010 (1.005-1.025) Urine Protein Negative (NEG/TRACE) mg/dL Urine Glucose (UA) Negative (NEGATIVE) mg/dL Urinary Catheter Management Urinary Catheter Management Urethral: Cath placed during this visit: yes Urethral indwelling: Yes Reason for continuing: surgical procedure Insertion date: 10/03/24 Insertion time: 08:30 OB - PN: A/P Assessment and Plan (1) Request for sterilization: (2) Postop check: Assessment and Plan: S/P URGENT CS, DUE TO PERCRETA AND COMPLETE PREVIA WITH ANTERIOR PLACENTA, EBL 800. PATIENT FEELS BETTER NOW THAN WHEN FIRST RETURNED FROM OR. ABLE TO SEE WELL AND CONVERSE WITH FAMILY. BP REMAINS 86 /60 BY MY ASSESSMENT WITH BLOOD PRESSURE CUFF AND STETHOSCOPE. PULSE 90'S. ON EXAM ABDOMEN SOFT AND NOT DISTENDED. HAS RECEIVED TWO UNITS OF PRBC'S. NORMAL RUBRA. DRESSING DRY AND INTACT. Plan WILL GIVE TWO MORE UNITS OF PRBC'S. NO NEED FOR PLATELETS AT THIS TIME. WILL RECHECK HMG TWO HOURS AFTER 4TH UNIT OF PRBC'S. Time Spent with Patient Time: Total time spent is greater than 50% in coordination of care (as documented) at patient's floor/unit and/or counseling patient: Total time spent with greater than 50% in coordination of care (as documented) at patient's floor/unit and/or counseling patient: greater than 35 minutes
[2024-10-03] MEDS: ACETAMINOPHEN 500 MG TABLET 1000 MG PO (14:09)
--- NOTE | 2024-10-03 14:10 | PC.NURSE ---
1400 Escalation of chain of command regarding patient status. Rosa Callejas, [employer]INE[employer]ARD SUPERVISOR present in department and discusses patient's plan of care with physician, plan revised. Patient to transfer to higher level of care post transfusion.
--- NOTE | 2024-10-03 14:15 | PC.NURSE ---
1415 4th unit PRBC started and infusing wide open without complication.
[2024-10-03] MEDS: 0.9 % SODIUM CHLORIDE 1,000 ML 125 ML IV (15:33)
[2024-10-03] MEDS: LACTATED RINGER'S SOLUTION 1,000 ML 999 ML IV (15:35)
--- NOTE | 2024-10-03 15:48 | P.DS_ITS ---
Transfer Discharge Sum: Prov Provider Date of admission: 10/03/24 07:35 Primary care physician: Non-Staff Physician, Admitting clinician: Ana De León Consults: 10/03/24 Consult to Dumpling Machine Operator Routine Reason for consult:: Advanced Directives Other reason:: health care proxy, living POA Attending physician on discharge: Ana De León Anticipated date of transfer: 10/03/24 DS: Diagnosis Discharge Diagnosis (1) Intrapartum hemorrhage: Assessment and plan: S/P URGENT CS FOR LABOR CONTRACTION AT 34.3 WITH VAGINAL BLEEDING AND COMPLETE PREVIA. PRIOR LTCS . RECEIVED 4 UNITS PRBC. PRESENTLY BLOOD PRESSURE, PULS, RESP RATE STABLE. HOWEVER, URINE LAST 90 MINUTES 22CM. PER REQUEST OF SUPERVISORS AND TANK TENDER WHO WAS PRESENT ON MATERNITY, THE PATIENT WILL BE TRANSFERRED TO A FACILITY WITH A HIGHER LEVEL OF CARE CAPABILITIES SHOULD THEY ARISE. THIS HOSPITAL HAS LIMITED STAFF AND HAS EXPLOITED ITS BLOOD REPLACEMENT RESOURCES THUS SHOULD SHE REQUIRE PLATELETS OR CRYO ET AL SHE WOULD NEED A LEVEL 3 FACILITY. PRESENTLY WE ARE DRAWING A CBC AND DIFF, PT PTT, CMP. SHE HAS AN ARTERIAL LINE. THE NEED TO TRANSFER THIS PATIENT HAS BEEN FULLY DISCUSSED WITH THE PATIENT, HER AND MOTHER. THEY ARE IN AGREEMENT Plan TRANSFER TO [facility] HAS BEEN ARRANGED Transfer Discharge Sum: Med Medications Active and Home Medications: Home Medications folic acid 1 mg tablet 1 mg PO DAILY 10/03/24 [History Confirmed 10/03/24] vits no.130-ferrous fum 27 mg iron-folic acid 800 mcg tablet ( Vitamin) 1 tab PO DAILY 10/03/24 [History Confirmed 10/03/24] Active Medications Acetaminophen (Acetaminophen 500 Mg Tablet) 1,000 mg PO Q8H [place] Stop: 10/05/24 11:01 Last Admin: 10/03/24 14:09 Dose: 1,000 mg Al Hydroxide/Mg Hydroxide (Magnesium Hydroxide 2,400 Mg/10 Ml Oral.Susp) 2,400 mg PO Q6H PRN PRN Reason: Dyspepsia Carboprost Tromethamine (Carboprost Tromethamine 250 Mcg/Ml 1 Ml Vial) 250 mcg IM Q15M PRN PRN Reason: Bleeding Stop: 10/05/24 08:22 Diphenhydramine HCl (Diphenhydramine Hcl 50 Mg/Ml Vial) 25 mg IV Q6H PRN PRN Reason: Itching Stop: 10/04/24 10:22 Diphtheria/Pertussis/Tetanus Vacc (Adacel Diph,Pertuss(Acell),Tet Vac/Pf 0.5 Ml Adult Syringe) 0.5 ml IM .ONCE ONE Stop: 10/05/24 09:01 Docusate Sodium (Docusate Sodium 100 Mg Capsule) 100 mg PO BID [facility] Enoxaparin Sodium (Enoxaparin Sodium 40 Mg/0.4 Ml Syringe) 40 mg SUBQ Q24H [facility] Tranexamic Acid 1,000 mg/ (Sodium Chloride) 110 mls @ 440 mls/hr IV ONCE PRN PRN Reason: Uterine Bleeding Stop: 10/05/24 08:22 Sodium Chloride (Sodium Chloride 0.9% 250 Ml) 250 mls @ 10 mls/hr IV .Q24H PRN PRN Reason: LINE CLEARANCE Last Infusion: 10/03/24 15:20 Dose: Infused Lactated Ringer's (Lactated Ringers) 1,000 mls @ 125 mls/hr IV .Q8H PRN PRN Reason: IF NOT TOLERATING PO FLUIDS OR Ibuprofen (Ibuprofen 400 Mg Tablet) 800 mg PO Q8H PRN PRN Reason: Pain Ketorolac Tromethamine (Ketorolac Tromethamine 30 Mg/Ml Vial) 30 mg IVP Q6H [facility] Last Admin: 10/03/24 13:02 Dose: 30 mg Methylergonovine Maleate (Methylergonovine Maleate 0.2 Mg Tablet) 0.2 mg PO Q4H PRN PRN Reason: Uterine Contractility/Contract Stop: 10/05/24 08:22 Misoprostol (Misoprostol 100 Mcg Tablet) 600 mcg PO ONCE PRN PRN Reason: Uterine Bleeding Stop: 10/05/24 08:22 Misoprostol (Misoprostol 100 Mcg Tablet) 800 mcg SL ONCE PRN PRN Reason: Uterine Bleeding Stop: 10/05/24 08:22 Misoprostol (Misoprostol 100 Mcg Tablet) 1,000 mcg MT ONCE PRN PRN Reason: Uterine Bleeding Stop: 10/05/24 08:22 Nalbuphine HCl (Nalbuphine Hcl 10 Mg/Ml Ampule) 10 mg IV Q3H PRN PRN Reason: Itching Stop: 10/04/24 10:22 Ondansetron HCl (Ondansetron Pf 4 Mg/2 Ml Vial) 4 mg IV Q6H PRN PRN Reason: Nausea And Vomiting Oxytocin (Oxytocin 10 Unit/Ml Vial) 10 unit IM ONCE PRN PRN Reason: Bleeding Stop: 10/05/24 08:22 Senna (Sennosides 8.6 Mg Tablet) 17.2 mg PO QHS PRN PRN Reason: Constipation Simethicone (Simethicone 80 Mg Tab.Chew) 80 mg PO QID PRN PRN Reason: Abdominal Distention Transfer Discharge Sum: Hosp Status at Discharge Cognitive capacity at transfer: MSE NORMAL Overall status at transfer: other (POST OP DAY S/P SPINAL ANESTHETIC, AMBULATE WITH ASSIST) Time Spent with Patient Time attestation: Total time spent providing and/or coordinating transfer services: Total time spent: greater than 30 minutes Exam Constitutional: Vital Signs, click to edit/add: Last Vital Signs Temp 98.9 F 10/03/24 14:20 Pulse 117 H 10/03/24 15:35 Resp 18 10/03/24 15:35 BP 103/75 10/03/24 15:35 Pulse Ox 100 10/03/24 15:35 O2 Del Method Room Air 10/03/24 13:19 Documenting provider has reviewed patient's vital signs: yes Common normals: average body habitus, oriented x3 and alert General appearance: cooperative Other: JUST LOST HER SON. GRIEVING HENMT: Common normals: normocephalic and head/scalp atraumatic Eye: Common normals: PERRL Pupil: accommodation reflex normal Neck & C-Spine: Common normals: full ROM and supple Respiratory: Common normals: normal respiratory effort Auscultation: clear to auscultation bilaterally Cardio: Common normals: regular rate and regular rhythm GI: Common normals: soft to palpation and non-tender Inspection: other (NOT DISTENDED, DRESSING DRY AND INTACT, NORMAL VAGINAL BLEEDING) : Common normals: no CVA tenderness Uterus palpation: other (FIRM FUNDUS, BELOW UMBILICUS 1 CM, ) Back & Pelvis: Common normals: no thoracic nor lumbar tenderness and thoraco- lumbar ROM normal (NECK AND BACK SORE FROM LYING ON OR TABLE) Extremity: Common normals: full ROM and no calf tenderness Neuro: Common normals: oriented x3, CN's II-XII intact bilaterally, moves all extremities, no focal motor deficits and no sensory deficits noted Motor exam: strength 5/5 throughout Psych: Common normals: mental status grossly normal, thought process normal, cooperative, affect normal, speech normal and activity/motor behavior normal Attitude: calm and other (GRIEVING) Activity/motor behavior: appropriate eye contact Transfer Discharge Sum: Data Data Completed and Pending Completed studies during hospitalization: CBC AND DIFF, CMP, PT, PTT, INR, UA Additional Comments Additional comments: TRANSFER ACCEPTED BY DR. MARROQUIN Discharge Plan Discharge Disposition: [facility] Condition: Good Assessment: VSS, AFEBRILE, CLINICAL EXAM NONFOCAL, ALERT AND ORIENTED THOUGH GRIEVING, REASON FOR TRANSFER IS THAT PATIENT REQUIRES HIGHER LEVEL OF CARE THAN [facility] CAN PROVIDE SHOULD SHE REQUIRE REOPERATION Activity Restrictions/Additional Instructions: ON BEDREST TODAY Discharge Location: [facility]
[2024-10-03] MEDS: 0.9 % SODIUM CHLORIDE 500 ML 100 ML IV (16:00)
--- NOTE | 2024-10-03 16:01 | PC.NURSE ---
ART line placed per Jose BLOCK PAVER in left radial
--- NOTE | 2024-10-03 16:17 | PM.ANBPRC ---
Anesthesia Bedside Procedure Procedural Section Pre-procedural diagnosis: Intrapartum Hemmorhage Verification/time out: correct patient, correct site and correct procedure Name of person performing procedure: Jm Escalante ASA class: III Mallampati classification: II. soft palate, fauces, uvula visible Preparation: supervisor coating applied and pulse oximeter Complications: none Conclusion: patient tolerated procedure Additional Procedures Name of procedure: Arterial Line Written consent: patient Verification/time out: correct patient, correct site, correct procedure and time out performed Estimated blood loss (if any): less than 5 mls Conclusion: patient tolerated procedure (Right arterial line attempted with flash but unable to thread arrow catheter. Left arm then prepped and draped. 20g arrow catheter inserted in left radial artery under ultrasound guidance. Catheter secured and labs drawn and sent to lab. )
[2024-10-03 16:28] LABS: ABG PCO2 27.6 mmHg (35.0-45.0); PO2 ABG 86.1 mmHg (80.0-100.0); pH ABG 7.359 (7.350-7.450)
[2024-10-03 16:29] LABS: Allen Test POSITIVE (POSITIVE); Base Excess ABG -9.9 mmol/L (-2.0-2.0); Basophils Percent Auto 0.1 % (0.2-2.0); HCO3 ABG 15.5 mmol/L (22.0-26.0); Hematocrit 34.4 % (36.0-48.0); Hemoglobin 11.8 g/dL (12.0-16.0); Immature Granulocytes Abs Auto 0.14 10^3/uL (0.00-0.03); Immature Granulocytes Pct Auto 0.9 % (0.0-0.5); Lymphocytes Absolute Auto 1.5 10^3/uL (1.2-3.8); Lymphocytes Percent Auto 9.2 % (20.5-60.0); Mean Corpuscular HGB Conc 34.3 g/dL (29.9-35.2); Mean Corpuscular Hemoglobin 30.9 pg (26.7-34.0); Mean Corpuscular Volume 90.1 fL (81.0-99.0); Mean Platelet Volume 10.2 fL (9.5-13.5); Monocytes Percent Auto 6.6 % (1.7-12.0); Neutrophils Absolute Auto 13.2 10^3/uL (1.4-6.5); Neutrophils Percent Auto 83.2 % (43.0-75.0); O2 Mode RA; Oxygen Saturation ABG 97.7 %; Platelet Count 152 10^3/uL (150-450); Red Blood Count 3.82 10^6/uL (4.20-5.40); White Blood Count 15.8 10^3/uL (4.0-11.0)
[2024-10-03 16:45] LABS: INR 1.02; Partial Thromboplastin Time 27.2 sec (22.3-36.2); Prothrombin Time 10.8 sec (9.0-11.6)
[2024-10-03 16:47] LABS: Alanine Aminotransferase 16 U/L (14-59); Albumin Globulin Ratio 0.7; Albumin Level 1.7 g/dL (3.4-5.0); Alkaline Phosphatase 117 U/L (46-116); Anion Gap 15.3; Aspartate Amino Transferase 24 U/L (15-37); BUN Creatinine Ratio 10.9; Bilirubin Total 1.1 mg/dL (0.2-1.0); Calcium 7.1 mg/dL (8.5-10.1); Chloride 107 mmol/L (98-107); Estimated GFR (African America >60 (>=60 mL/min/1.73m^2); Estimated GFR (Non-African Ame >60 (>=60 mL/min/1.73m^2); Globulin 2.5 g/dL; Glucose 98 mg/dL (74-106); Sodium 134 mmol/L (136-145); Total Protein 4.2 g/dL (6.4-8.2)
[2024-10-03 16:48] LABS: Potassium 6.3 mmol/L (3.5-5.1)
--- NOTE | 2024-10-03 18:43 | PC.NURSE ---
5592 Transport at bedside, report given to flight team. Patient leaves with transport team
--- NOTE | 2024-10-03 18:44 | PC.NURSE ---
Addendum entered by Kierra Pinedo 10/03/24 20:39: Lab values, VS, patient history, medications reviewed. Recent critical lab values reported to oncoming provider as patient en route to [facility]. Original Note: [id number] Report given to Carlton Mistry RN Juan
--- NOTE | 2024-10-03 20:34 | PC.NURSE ---
1317 Dr. De León at bedside to assess patient, manual BP taken per physician. No further orders at this time. Lochia minimal with fundus firm and at umbilicus. Jean catheter draining clear pale yellow urine. and mother remain at bedside. Infant remains with NICU team in SCN.
--- NOTE | 2024-10-04 09:16 | SWNOTE1 ---
SW consulted for Advanced Directives, but pt was transferred to higher level of care.
== END 2024-10-03 18:00 | disposition short-term general hospital (02) | DRG 783 ==
PROVIDERS: Admitting Provider Obstetrics & Gynecology; Visit Provider Obstetrics & Gynecology
PROC: 10D00Z1 Extraction of Products of Conception, Low, Open Approach (ICD-10-PCS; CPT 59514; principal; 2024-10-03 08:30)
DX: O44.13 Complete placenta previa with hemorrhage, third trimester (principal); O60.14X0 Preterm labor third trimester with preterm delivery third trimester, not applicable or unspecified; O24.420 Gestational diabetes mellitus in childbirth, diet controlled; O32.1XX0 Maternal care for breech presentation, not applicable or unspecified; O34.211 Maternal care for low transverse scar from previous cesarean delivery; Z3A.34 34 weeks gestation of pregnancy; Z37.0 Single live birth; Z86.718 Personal history of other venous thrombosis and embolism; Z88.5 Allergy status to narcotic agent; Z88.8 Allergy status to other drugs, medicaments and biological substances; Z30.2 Encounter for sterilization
CPT/HCPCS: 36415; 36430; 36600; 51702; 59025; 80053; 80307; 81001; 82805; 85025; 85610; 85730; 86850; 86900; 86901; 86923; 88307; J0690; J1885; J2210; J2274; J2371; J2405; J2590; J2765; J3105; J3490; P9016

== ENCOUNTER 2025-02-11 19:33 | Outpatient (REF) | payer OTHER, SELFPAY ==
--- OUTSIDE RECORDS SUMMARY | 2025-02-11 15:40 | XMS_ITS | Encounter Summary ---
Author Organization [facility] Address [address] [place] [address] Care Team Providers Care Feedlot Manager Name Role Phone Fito Cueto MD Primary Care Provider +1- [phone] Reason for Visit * Reason Comments Well Women Visit Encounter Details Date Type Department Care Team (Late st Contact Info) Description 02/11/2025 3:40 PM EDT Office Visit [facility] OB [address] [place] [phone] Lee Rand, DO [address] [place] [address] Well woman exam with routine gynecological exam Social History Tobacco Use Types Packs/Day Years Used Date Smoking Tobacco: Never Smokeless Tobacco: Never Alcohol Use Standard Drinks/Week Comments Never 0 (1 standard drink = 0.6 oz pur e alcohol) Comments No Sex and Gender Information Value Date Recorded Sex Assigned at Female 02/06/2023 4:15 AM EDT Legal Sex Female 11:47 PM EDT Gender Identity Female 02/06/2023 4:15 AM EDT Sexual Orientation Straight 02/06/2023 4: 15 AM EDT documented as of this encounter Last Filed Vital Signs Vital Sign Reading Time Taken Comments Blood Pressure 120/72 02/11/2025 3:43 PM EDT Pulse - - Temperature - - Respiratory Rate - - Oxygen Saturation - - Inhaled Oxygen Concentration - - Weight 72.5 kg (159 lb 12.8 oz) 02/11/2025 3:43 PM EDT Height - - Body Mass Index 25.79 01/02/2024 1:45 PM EDT documented in this encounter Plan of Treatment Upcoming Encounters Date Type Department Care Team (Late st Contact Info) Description 02/17/2026 8:30 AM EDT Procedure Visit [facility] OB [address] [place] [phone] Lee Rand, [address] [place] [address] Scheduled Orders Name Type Priority Associated Diagnoses Orde r Schedule Pap Smear Pathology and Cytology Routine Well woman exam with routine gynecological exam Ordered: 02/11/2025 HPV DNA probe, amplified Microbiology Routine Well woman exam with routine gynecological exam Ordered: 02/11/2025 documented as of this encounter Goals Goal Patient Goal Type Associated Problems Recent Progress Patient-Stated? Author Reminders Care Plan OB Reminders No Open Scheduling, Background documented as of this encounter Visit Diagnoses Diagnosis Well woman exam with routine gynecological exam Routine gynecological examination documented in this encounter Additional Health Concerns Active Problems Noted Date Diagnosed Date OB Reminders 04/23/2024 documented as of this encounter Care Teams Feedlot Manager Relationship Specialty Start Date End Date Fito Cueto MD [address] [place] [address] PCP - General Family Medicine 02/09/23 documented as of this encounter
--- OUTSIDE RECORDS SUMMARY | 2025-02-11 19:37 | XMS_ITS | Encounter Summary ---
Author Organization [facility] tem Address [id number] [address] [place] [address] Care Team Providers Care Cleaning Machine Operator Name Role Phone Fito Cueto MD Primary Care Provider + Encounter Details Date Type Department Care Team (Late st Contact Info) Description 10/03/2024 Orders Only Maternal- Medicine at [facility] [address] [place] [phone] Sharon Terrell MD [address] [facility] [address] [place] [address] Social History Tobacco Use Types Packs/Day Years Used Date Smoking Tobacco: Never Assessed [facility] Utilities Answer Date Recorded In the past 12 months has [employer], gas, oil, or water [employer] threatened to shut off services in your home? No 10/04/2024 AUDIT-C Answer Date Recorded Q1: How often do you have a drink containing alc ohol? Monthly or less 10/04/2024 Q2: How many drinks containi ng alcohol do you have on a typical day when you are drinking? 1 or 2 10/04/2024 Q3: How often do you have si x or more drinks on one occasion? Never 10/04/2024 PHQ-2 Answer Date Recorded Total Score 5 10/04/2024 PRAPARE - Transportation Answer Date Re corded In the past 12 months, has l ack of transportation kept you from medical appointments or from getting medications? No 09/22 In the past 12 months, has l ack of transportation kept you from meetings, work, or from getting things needed for daily living? No 10/04/2024 Housing Instability Answer Date Recorde d Are you worried or concerned that in the next two months you may not have stable housing that you own, rent or stay in as a part of a household? No 10/04/2024 Childcare Answer Date Recorded Childcare Unknown 01/03/2019 Employment Answer Date Recorded Employment Unknown 01/03/2019 Hunger Screening Answer Date Recorded Within the past 12 months we worried whether our food would run out before we got money to buy more. Never True 10/04/2024 Within the past 12 months th e food we bought just didn't last and we didn't have money to get more. Never True 10/04/2024 Purpose - Life Answer Date Recorded Purpose and direction in life Unknown Comments Yes Sex and Gender Information Value Date Recorded Sex Assigned at Not on file Legal Sex Female 3:55 PM EDT Gender Identity Not on file Sexual Orientation Not on file documented as of this encounter Functional Status * Question Answer Date of Assessment Author Functional Status Independent 10/04/2024 2:24 PM EDT Carmen Beach RN * Audit-C Score Answer Date of Assessment Author 1 10/04/2024 11:15 AM NARESHT Wale Arroyo RN * Question Answer Date of Assessment Author Q1: How often do you have a drink containing alcohol? Monthly or less 10/04/2024 11:15 AM NARESHT Steve Arroyo RN Q2: How many drinks containing alcohol do you have on a typical day when you are drinking? 1 or 2 10/04/2024 11:15 AM NARESHT Lisa Arroyo R N Q3: How often do you have six or more drinks on one occasion? Never 10/04/2024 11:15 AM NARESHT Lisa Arroyo R N documented as of this encounter Mental Status * Question Answer Entry Date Author Overall Cognitive Status WFL 10/05/2024 9:38 AM EDT Torsten Fuchs PT documented in this encounter Plan of Treatment Not on file documented as of this encounter Visit Diagnoses Not on filedocumented in this encounter Additional Health Concerns Infection Onset Date Last Indicated Resolved Time Respiratory Rule-Out 12/22/2024 12/22/2024 025 10:02 AM EDT documented as of this encounter Care Teams Cleaning Machine Operator Relationship Specialty Start Date End Date Fito Cueto MD [address] [place] [address] PCP - General Family Medicine 10/04/24 documented as of this encounter
--- OUTSIDE RECORDS SUMMARY | 2025-02-11 19:37 | XMS_ITS | Encounter Summary ---
Author Organization [facility] Address [address] [facility] [place] [address] Care Team Providers Care Pineapple Plantation Manager Name Role Phone Fito Cueto MD Primary Care Provider +1- [phone] Encounter Details Date Type Department Care Team (Late st Contact Info) Description 10/03/2024 Abstract [facility] OB [address] [place] [address] Lee Rand DO [address] [place], [facility] Social History Tobacco Use Types Packs/Day Years Used Date Smoking Tobacco: Never Smokeless Tobacco: Never Alcohol Use Standard Drinks/Week Comments Never 0 (1 standard drink = 0.6 oz pur e alcohol) Comments Yes Sex and Gender Information Value Date Recorded Sex Assigned at Female 02/06/2023 4:15 AM EDT Legal Sex Female 11:47 PM EDT Gender Identity Female 02/06/2023 4:15 AM EDT Sexual Orientation Straight 02/06/2023 4: 15 AM EDT documented as of this encounter Plan of Treatment Upcoming Encounters Date Type Department Care Team (Late st Contact Info) Description 02/17/2026 8:30 AM EDT Procedure Visit [facility] [address] [place] [address] Lee Rand DO [address] [place], [facility] documented as of this encounter Goals Goal Patient Goal Type Associated Problems Recent Progress Patient-Stated? Author Reminders Care Plan OB Reminders No Open Scheduling, Background documented as of this encounter Visit Diagnoses Not on filedocumented in this encounter Additional Health Concerns Active Problems Noted Date Diagnosed Date OB Reminders 04/23/2024 documented as of this encounter Care Teams Pineapple Plantation Manager Relationship Specialty Start Date End Date Fito Cueto MD [address] [place] [id number] PCP - General Family Medicine 02/09/23 documented as of this encounter
--- OUTSIDE RECORDS SUMMARY | 2025-02-11 19:37 | XMS_ITS | Encounter Summary ---
Author Organization [facility] Address [address] [place] [address] Care Team Providers Care Chief Nurse Anesthetist Name Role Phone Fito Cueto MD Primary Care Provider +1- [phone] Encounter Details Date Type Department Care Team (Late Contact Info) Description 06/24/2024 Clinisync Result Encounter [facility] External Department Unsolicited Melinda Rand, DO [address] [place], [facility] Social History Tobacco Use Types Packs/Day [...] EDT Procedure Visit [facility] OB [address] [place] [phone] Melinda Rand DO [address] [place] [address] documented as of this encounter Goals Goal Patient Goal Type Associated Problems Recent Progress Patient-Stated? Author Reminders Care Plan OB Reminders No Open Scheduling, Background documented as of this encounter Procedures Procedure Name Priority Date/Time Associated Diagnosis Comments US OB CERVICAL LENGTH 06/24/2024 6:16 AM EST documented in this encounter Results * US OB CERVICAL LENGTH (06/24/2024 6:16 AM EST) Anatomical Region Laterality Modality Other 06/24/2024 6:16 AM EST Narrative 06/24/2024 6:18 [place] [address] Ultrasound Report Signed Patient: ANNA LAW MR#: [id number] : 1990 Acct:[id number] Age/Sex: 34 / F ADM Date: 06/23/24 Loc: US Attending Dr: Melinda Rand D.O. Ordering Physician: Melinda Rand D.O. Date of Service: 06/23/24 Procedure(s): US OB cervical length Accession Number(s): [id number] cc: Melinda Rand D.O.; Physician,Non-Staff [address] [place] [address] Patient Name: ANNA LAW MRN: [id number] date: 1990 Sex: F Assigned Patient Location: Current Patient Location: Accession/Order Number: [id number] Exam Date: 06/23/2024 14:00 Report Date: 06/24/2024 06:16 At the request of: MELINDA RAND Procedure: US OB cervical length EXAMINATION: US OB anatomy, US OB cervical length HISTORY: anatomic survey COMPARISON: No relevant comparison available. TECHNIQUE: Transabdominal sonographic examination was performed for obstetrical and evaluation. FINDINGS: Number: 1 Heart Rate: 145.16 bpm H.B. /min Amniotic Fluid Volume: Subjectively normal Placental Location: Anterior-posterior with complete previa. Cervix Length: 4.43 cm ; closed. ANATOMY: Normal Structures -cerebellum, choroid plexus, cisterna magna, lateral cerebral ventricles, orbits, midline falx, hard palate, four-chamber heart, RVOT, LVOT, stomach, kidneys, bladder, umbilical cord insertion into abdomen, three-vessel cord, cervical spine, thoracic spine, lumbar spine, sacral spine, right upper extremity, left upper extremity, right lower extremity, left lower extremity. SUBOPTIMALLY SEEN: None ABNORMALITIES: None BIOMETRY: BPD: 4.91 cm; 20 weeks 6 days; 82 % HC: 17.81 cm; 20 weeks 2 days; 55 % AC: 15.83 cm; 21 weeks 0 days; 75.40 % FL: 3.17 cm; 19 weeks 6 days; 36.70 % EFW:354.63 g; 71.40 % FL/AC: 20.01 FL/BPD: 64.57 HC/AC: 1.13 GESTATIONAL AGE: Age by EDC: 20 weeks 0 days Age by current US: 20 weeks 4 days JOSE by current US: 2024-11-06 JOSE by EDC: 2024-11-10 US/US OB cervical length IMPRESSION: 1. Single live intrauterine with growth detailed above. 2. Complete previa with placenta is seen anterior and posterior to the cervical os. Electronically authenticated by: ERIC BAUMANN Date: 06/24/2024 06:16 Dictated By: Eric Baumann M.D. Signed By: 06/24/24617 DD/ 5 TD/TT: [employer] Administrator: Procedure Note Radiology, Radiologist, MD - 06/24/2024 [place] [address] Ultrasound Report Signed Patient: ANNA LAW [facility]#: [id number] : 1990Acct:[id number] Age/Sex: 34 / FADM Date: 06/23/24 Loc: US Attending Dr: Melinda Rand D.O. Ordering Physician: Melinda Rand D.O. Date of Service: 06/23/24 Procedure(s): US OB cervical length Accession Number(s): [id number] cc: Melinda Rand D.O.; Physician,Non-Staff [place] [address] [place] [id number] Patient Name: ANNA LAW MRN: [facility]:[id number] date: 1990 Sex: F Assigned Patient Location: Current Patient Location: Accession/Order Number: [id number] Exam Date: 06/23/2024 14:00 Report Date: 06/24/2024 06:16 At the request of: MELINDA RAND Procedure: US OB cervical length EXAMINATION: US OB anatomy, US OB cervical length HISTORY: anatomic survey COMPARISON: No relevant comparison available. TECHNIQUE: Transabdominal sonographic examination was performed for obstetrical and evaluation. FINDINGS: Number: 1 Heart Rate: 145.16 bpm H.B. /min Amniotic Fluid Volume: Subjectively normal Placental Location: Anterior-posterior with complete previa. Cervix Length: 4.43 cm ; closed. ANATOMY: Normal Structures -cerebellum, choroid plexus, cisterna magna, lateral cerebral ventricles, orbits, midline falx, hard palate, four-chamberheart, RVOT, LVOT, stomach, kidneys, bladder, umbilical cord insertion intoabdomen, three-vessel cord, cervical spine, thoracic spine, lumbar spine, sacralspine, right upper extremity, left upper extremity, right lower extremity, leftlower extremity. SUBOPTIMALLY SEEN: None ABNORMALITIES: None BIOMETRY: BPD: 4.91 cm; 20 weeks 6 days; 82 % HC: 17.81 cm; 20 weeks 2 days; 55 % AC: 15.83 cm; 21 weeks 0 days; 75.40 % FL: 3.17 cm; 19 weeks 6 days; 36.70 % EFW:354.63 g; 71.40 % FL/AC: 20.01 FL/BPD: 64.57 HC/AC: 1.13 GESTATIONAL AGE: Age by EDC: 20 weeks 0 days Age by current US: 20 weeks 4 days JOSE by current US: 2024-11-06 JOSE by EDC: 2024-11-10 US/US OB cervical length IMPRESSION: 1. Single live intrauterine with growth detailed above. 2. Complete previa with placenta is seen anterior and posterior to the cervical os. Electronically authenticated by: ERIC BAUMANN Date: 06/24/2024 06:16 Dictated By: Eric Baumann M.D. Signed By:06/24/24617 DD/ 0616 TD/TT: [employer] Administrator: us Melinda Keyona DO [facility] Final Result documented in this encounter Visit Diagnoses Not on filedocumented in this encounter Additional Health Concerns Active Problems Noted Date Diagnosed Date OB Reminders 04/23/2024 documented as of this encounter Care Teams Chief Nurse Anesthetist Relationship Specialty Start Date End Date Fito Cueto MD [address] [place] [address] PCP - General Family Medicine 02/09/23 documented as of this encounter
--- OUTSIDE RECORDS SUMMARY | 2025-02-11 19:37 | XMS_ITS | Encounter Summary ---
Author Organization [facility] Address [address] [facility] [place] [address] Care Team Providers Care City Engineer Name Role Phone Fito Cueto MD Primary Care Provider +1- [phone] Encounter Details Date Type Department Care Team (Late st Contact Info) Description 10/04/2024 Abstract [facility] OB [address] [place] [address] Lee Rand DO [address], [facility]11 Social History Tobacco Use Types Packs/Day [...] 02/17/2026 8:30 AM EDT Procedure Visit [facility] OB [address] [place] [address] Lee Rand DO [address], [facility]11 documented as of this encounter Goals Goal Patient Goal Type Associated Problems Recent Progress Patient-Stated? Author Reminders Care Plan OB Reminders No Open Scheduling, Background documented as of this encounter Visit Diagnoses Not on filedocumented in this encounter Additional Health Concerns Active Problems Noted Date Diagnosed Date OB Reminders 04/23/2024 documented as of this encounter Care Teams City Engineer Relationship Specialty Start Date End Date Fito Cueto MD [address] [phone] PCP - General Family Medicine 02/09/23 documented as of this encounter
--- OUTSIDE RECORDS SUMMARY | 2025-02-11 19:37 | XMS_ITS | Encounter Summary ---
Author Organization [facility] Address [address] [facility] [place] [address] Care Team Providers Care Special Machine Operator Name Role Phone Fito Cueto MD Primary Care Provider +1- [phone] Encounter Details Date Type Department Care Team (Late Contact Info) Description 08/31/2024 Abstract [facility] [address] [place] [address] Lee Rand DO [address], [facility]11 Social History Tobacco Use Types Packs/Day [...] 02/17/2026 8:30 AM EDT Procedure Visit [facility] [address] [place] [address] Lee Rand DO [address], [facility]11 documented as of this encounter Goals Goal Patient Goal Type Associated Problems Recent Progress Patient-Stated? Author Reminders Care Plan OB Reminders No Open Scheduling, Background documented as of this encounter Visit Diagnoses Not on filedocumented in this encounter Additional Health Concerns Active Problems Noted Date Diagnosed Date OB Reminders 04/23/2024 documented as of this encounter Care Teams Special Machine Operator Relationship Specialty Start Date End Date Fito Cueto MD [address] [phone] PCP - General Family Medicine 02/09/23 documented as of this encounter
--- OUTSIDE RECORDS SUMMARY | 2025-02-11 19:37 | XMS_ITS | Encounter Summary ---
Author Organization [facility] Address [address] [place] [address] Care Team Providers Care Roving Winder Name Role Phone Fito Cueto MD Primary Care Provider +1- [phone] Encounter Details Date Type Department Care Team (Late st Contact Info) Description 01/11/2024 Clinisync Result Encounter [facility] External Department Unsolicited Melinda Rand, DO [address] [place] [address] Social History Tobacco Use Types Packs/Day Years [...] Visit [facility] OB [address] [place] [id number] Melinda Rand DO [address] [place] [address] documented as of this encounter Procedures Procedure Name Priority Date/Time Associated Diagnosis Comments FL HYSTEROSALPINGOGRAPHY 024 9:55 AM EDT documented in this encounter Results * FL HYSTEROSALPINGOGRAPHY (01/11/2024 9:55 AM EDT) Anatomical Region Laterality Modality Other 01/11/2024 9:55 AM EDT Narrative 01/11/2024 9:[place] [address] Fluoroscopy Report Signed Patient: ANNA LAW MR#: [id number] : 1990 Acct:[id number] Age/Sex: 33 / F ADM Date: 01/11/24 Loc: LAB Attending Dr: Melinda Rand D.O. Ordering Physician: Melinda Rand D.O. Date of Service: 01/11/24 Procedure(s): FL hysterosalpingography Accession Number(s): [id number] cc: Melinda Rand D.O. [place] [address] Patient Name: ANNA LAW MRN: [id number] date: 1990 Sex: F Assigned Patient Location: LAB Current Patient Location: LAB Accession/Order Number: [id number] Exam Date: 01/11/2024 08:15 Report Date: 01/11/2024 09:55 At the request of: MELINDA RAND Procedure: FL hysterosalpingography EXAMINATION: FL hysterosalpingography, FL Hysterosal cath placement HISTORY: Fallopian Tube Disorder, Polycystic Ovarian Syndrome COMPARISON: No relevant comparison available. TECHNIQUE: Informed consent was obtained. A sterile vaginal speculum was introduced and, following cleansing of the cervix, a balloon-tipped catheter was inserted into the endometrial cavity. The procedure was then completed in the usual manner with water-soluble contrast. Standard level fluoroscopic mode of operation utilized. FINDINGS: FALLOPIAN TUBES: Patent fallopian tubes bilaterally with no significant delay in spillage of contrast into the peritoneal cavity. Dilated distal end of right fallopian tube. Dilated proximal portion and distal end of left fallopian tube. ENDOMETRIAL CAVITY: No scarring, filling defects, or dilatation. OTHER: Negative. FL/FL hysterosalpingography IMPRESSION: 1. Patent fallopian tubes bilaterally with dilated segments of uncertain clinical significance as detailed above. Electronically authenticated by: ERIC BAUMANN Date: 01/11/2024 09:55 Dictated By: Eric Baumann M.D. Signed By: 01/11/2458 DD/ 4 TD/TT: Shell Trim Operator: Procedure Note Radiology, Radiologist, MD - 01/11/2024 [place] [address] Fluoroscopy Report Signed Patient: ANNA LAW AMR#: [id number] : 1990Acct:[id number] Age/Sex: 33 / FADM Date: 01/11/24 Loc: LAB Attending Dr: Melinda Rand D.O. Ordering Physician: Melinda Rand D.O. Date of Service: 01/11/24 Procedure(s): FL hysterosalpingography Accession Number(s): [id number] cc: Melinda Rand D.O. [place] [address] Patient Name: ANNA LAW MRN: [id number] date: 1990 Sex: F Assigned Patient Location: LAB Current Patient Location: LAB Accession/Order Number: [id number] Exam Date: 01/11/2024 08:15 Report Date: 01/11/2024 09:55 At the request of: MELINDA RAND Procedure: FL hysterosalpingography EXAMINATION: FL hysterosalpingography, FL Hysterosal cath placement HISTORY: Fallopian Tube Disorder, Polycystic Ovarian Syndrome COMPARISON: No relevant comparison available. TECHNIQUE: Informed consent was obtained. A sterile vaginal speculum was introduced and, following cleansing of the cervix, a balloon-tippedcatheter was inserted into the endometrial cavity. The procedure was then completedin the usual manner with water-soluble contrast. Standard level fluoroscopicmode of operation utilized. FINDINGS: FALLOPIAN TUBES: Patent fallopian tubes bilaterally with no significantdelay in spillage of contrast into the peritoneal cavity. Dilated distal end of right fallopian tube. Dilated proximal portion and distal end of left fallopian tube. ENDOMETRIAL CAVITY: No scarring, filling defects, or dilatation. OTHER: Negative. FL/FL hysterosalpingography IMPRESSION: 1. Patent fallopian tubes bilaterally with dilated segments of uncertain clinical significance as detailed above. Electronically authenticated by: ERIC BAUMANN Date: 01/11/2024 09:55 Dictated By: Eric Baumann M.D. Signed By:01/11/24957 DD/ 4 TD/TT: Shell Trim Operator: [facility] [place] DO [facility] Final Result documented in this encounter Visit Diagnoses Not on filedocumented in this encounter Care Teams Roving Winder Relationship Specialty Start Date End Date Fito Cueto MD [address] [place] [address] PCP - General Family Medicine 02/09/23 documented as of this encounter
--- OUTSIDE RECORDS SUMMARY | 2025-02-11 19:37 | XMS_ITS | Encounter Summary ---
Author Organization [facility] Address [address] [facility] [place] [address] Care Team Providers Care Automobile Service Advisor Name Role Phone Fito Cueto MD Primary Care Provider +1- [phone] Encounter Details Date Type Department Care Team (Late st Contact Info) Description 10/03/[address] [facility] OB [address] [place] [address] Lee Rand DO [address], [facility]11 Social History Tobacco Use Types Packs/Day Years [...] 02/17/2026 8:30 AM EDT Procedure Visit [facility] OB [address] [place] [address] Lee Rand DO [address], [facility]11 documented as of this encounter Goals Goal Patient Goal Type Associated Problems Recent Progress Patient-Stated? Author Reminders Care Plan OB Reminders No Open Scheduling, Background documented as of this encounter Visit Diagnoses Not on filedocumented in this encounter Additional Health Concerns Active Problems Noted Date Diagnosed Date OB Reminders 04/23/2024 documented as of this encounter Care Teams Automobile Service Advisor Relationship Specialty Start Date End Date Fito Cueto MD [address] [phone] PCP - General Family Medicine 02/09/23 documented as of this encounter
--- OUTSIDE RECORDS SUMMARY | 2025-02-11 19:37 | XMS_ITS | Encounter Summary ---
Author Organization [facility] Address [address] [facility] [place] [address] Care Team Providers Care Sterilization Technician Name Role Phone Fito Cueto MD Primary Care Provider +1- [phone] Encounter Details Date Type Department Care Team (Late Contact Info) Description 08/20/2024 Abstract [facility] OB [address] [place] [address] Lee Rand DO [address], [facility]11 Social History Tobacco Use Types Packs/Day [...] 02/17/2026 8:30 AM EDT Procedure Visit [facility] [address] [place] [address] Lee Rand DO [address], [facility] documented as of this encounter Goals Goal Patient Goal Type Associated Problems Recent Progress Patient-Stated? Author Reminders Care Plan OB Reminders No Open Scheduling, Background documented as of this encounter Visit Diagnoses Not on filedocumented in this encounter Additional Health Concerns Active Problems Noted Date Diagnosed Date OB Reminders 04/23/2024 documented as of this encounter Care Teams Sterilization Technician Relationship Specialty Start Date End Date Fito Cueto MD [address] [phone] PCP - General Family Medicine 02/09/23 documented as of this encounter
--- OUTSIDE RECORDS SUMMARY | 2025-02-11 19:37 | XMS_ITS | Data Portability ---
Author Organization [place] - AVI WEEKS MD, PHD, [facility] Address [address] [place] [address] Assessment No assessment recorded. Plan of Treatment Reminders Order Date Submit Date Provider Last Modified By Organization Details Last Modified Time Details Appointments None record ed. Lab urinal ysis[facility] dipsti ck 2019 [facility], [address] [place], [address], 0 18:04:15 urinal ysis, dipsti ck 2019 020 TRUE Main Office, [address] [place], [address], 1 05:04:45 Referral None record ed. Procedures None record ed. Surgeries None record ed. Imaging None record ed. Medication Orders None record ed. Patient TargetsNo targets recorded. Patient Instructions Encounter Date Encounter Id Patient Instructions Last Modified By Organization Details Last Modified Time 04/07/2020 [id number] family history of breast cancer education [email or web address] Not available 04/08/2020 18:04:14 discussed the significance of family history of breast cancer and need for self breast exams and early mammograms. We also discussed the possibility of genetic counseling. Patient did want to hold on the flu shot and labs until after the wedding. [email or web address] Not available 04/08/2020 18:02:16 04/24/2020 [id number] Did a MILLER APPRENTICE swab in the office and sent to [facility] for RT PCR which did come back negative for Covid 19. Results were emailed to patient for their trip. [email or web address] Not available 05/03/2020 12:36:13 Reason for Referral None Reported. Problems Name Problem SNOMED Code Status Onset Date Resolution Date Notes Provider Name and Address Organization Details Recorded Time Psoriasis 3985066 Active 020 LETICIA Stokes MD, PHD 04/07/2020 09:22:41 Problem Notes None recorded. Medical Equipment None Reported. Allergies Allergen ID Allergen Name Allergen Category Reaction Reaction Severity Criticality Documentation Date Start Date Code Code System Note Provider Name and Address Organization Details Recorded Time 1166 acetamino phen / hydrocodo ne medicatio n vomiting Not available Not available 04/07/2020 95641 2 RxNorm LETICIA Stokes MD, PHD 0 09:27:08 Medications Name Sig Start Date Stop Date Status Note LastModified by Organization Details LastModified Time fluocinonide 0.05 % topical ointment active Not Available Not Available Not Available nitrofurantoin monohydrate/macr ocrystals 100 mg capsule active Not Available Not Available Not Available Vitamin active Not Available Not Available Not Available Otezla 30 mg tablet active Not Available Not Available Not Available Otezla active Not Available Not Availa ble Not Available Vitals Date Recorded Body height Heart rate Respiratory rate Body temperature Body mass index (BMI) Body weight Oxygen saturation Oxygen saturation in Arterial blood by Pulse oximetry Systolic And Diastolic Provider Name and Address Organization Details Last Updated DateTime 0 167.64 cm 85 /min 19 /min 98.6 [degF] 25.8 kg/m2 98877.7 8 g 96 % 96 % 118/78 mm[Hg] Marylou AKHTAR MD, PHD 0 08:43:27 Date Recorded Body height Heart rate Respiratory rate Body temperature Body mass index (BMI) Body weight Oxygen saturation Oxygen saturation in Arterial blood by Pulse oximetry Systolic And Diastolic Provider Name and Address Organization Details Last Updated DateTime 0 167.64 cm 96 /min 20 /min 98.7 [degF] 25.8 kg/m2 84006.7 8 g 97 % 97 % 100/60 mm[Hg] Marylou AKHTAR MD, PHD 0 09:45:19 Social History None recorded. Functional Status Question Answer Note LastModified by Organizat ion Details LastModified Time Do you or have you ever used smokeless tobacco? [facility] not available 04/07/2020 Do you or have you ever used e-cigarettes or vape? Never used electronic cigarettes clint Information not available 04/07/2020 Mental Status None recorded. Family History Relationship Description Onset Age of this Age Resolved Age Notes LastModified by Organization Details LastModified Time Maternal Grandfather Diabetes mellitus clint Not available 2019 09:24:01 Paternal Grandmother Family history of breast cancer clint Not available 2019 09:24:49 Maternal Aunt Family history of malignant neoplasm of bone clint Not available 2019 09:25:20 Maternal Aunt Metastatic malignant neoplasm to lymph node clint Not available 04/07 09:26:15 Maternal Aunt Family history of breast cancer clint Not available 2019 16:13:33 Medical History Condition Response Coronary Artery Disease N Other N Gout N Blood Diseases N Kidney Stones N Hyperthyroidism N Blood Transfusion N Breast Cancer N Hospital Admission Other Than N Lung Disease N COPD N Hypothyroidism N Depression N Defects or Inherited Disease N Developmental or Behavioral Disorders N Breast Problem N Difficulty Swallowing N Anesthesia Complications N Anxiety Disorder N Meniere's disease N Muscle, Joint, or Bone Problems N Obesity N Vision or Eye Problems N Arthritis N Head Injury/Concussion N Infertility N Polyps N Mental Disorder N Congenital Anomalies N Cancer N Varicosities N Stroke N Endometriosis N Bladder or Kidney Problems N High Cholesterol N Liver Disease N Headaches N Fibromyalgia N Kidney Disease N Allergies/Hayfever N Heart Problems N Ear or Hearing Problems N Hospitalizations N Thyroid Problems N GI Problems N ADD/ADHD N Eating Disorder N Skin Problems N Anemia N MRSA exposure N Constipation N Mental Illness N Diabetes N Ovarian Cancer N Bedwetting N Seizures/Epilepsy N Tuberculosis N AIDS/HIV N Congestive Heart Failure (CHF) N Eczema N Abuse/Domestic Violence N Diverticulitis N Asthma N Reflux/GERD N Hepatitis N Heart Disease N Pulmonary Embolism N Chronic Ear Infections N Pre-Eclampsia N Hypertension N Chicken Pox N Autism Spectrum Disorder (ASD) N Osteoporosis N Thrombophilias N Gynecological History Statement/Question Response Date of LMP 04/02/2020 Sexually Active? Y STIs/STDs N Menses Monthly Y Sexual Problems? N Duration of Flow (days) 3 Current Control Method None Desired Control Method None Obstetrics History GPAL:G 0 P 0 0 0 0 Immunizations Vaccine Type Date Status Note Provider Nam e and Address Organization Details Recorded Time Influenza, split virus, quadrivalent, preservative 0 completed Avi Akhtar MD [address] [place], [address], [facility] - AVI AKHTAR MD, PHD 05/03/2020 12:34:43 Past Encounters Encounter ID Performer Location Encounter Start Date Encounter Closed Date Diagnosis/Indication Diagnosis SNOMED-CT Code Diagnosis ICD10 Code Diagnosis Note [id number] Avi Betts rn, MD Main Office [address] [place] [address] [place] [address] 04/07/2020 08:40:07 04/07/2020 09:20:27 Adult health examination 839168347 Z00.00 Family his tory of breast cancer 904057214 Z80.3 [id number] Avi Betts rn, MD Main Office [address] [place], [place] [address] [address] 04/24/2020 09:42:09 04/24/2020 10:02:38 Exposure to coronavirus infection 211556192 Z20.828 Nasal congestion 5106032 0 R09.81 Administra tion of influenza vaccine 08454724 Z23 Health Concerns Section Related Observation LastModified by Organization Detai ls LastModified Time None Recorded Concern Status LastModified by Organization Details LastModified Time None Recorded Advance Directives Directive None Recorded Payers Insurance Date Sequence Insurance Name Policy Number Policy Canlaes Covered Member ID [place] Member ID Guarantor Name 08/26/2020 2 [employer] (POS) [id number] Anna Cannon [id number] 08/26/2020 1 [employer] (POS) [id number] Mike Law [id number] 04/07/2020 1 *SELF PAY* Notes Date Note Type Note Provider Name and Address Organization Details Recorded Time 04/07/2020 text/html Generic HPI TemplateReported bypatient.Notes:Leesa bui is here today to become an established patient. Patient has no concerns today. Patient presentes to the office as a new patient for her annual wellness exam as well as to discuss getting a covid 19 test 72 hours prior to boarding a plane to leave the country for vacation in April. She is doing well overall and has not seen a physician in several years. She will be getting on Tuesday and will be leaving for [place] in [place]. She does have a history of psoriasis but sees a MILLER APPRENTICE at the dermatology clinic in [place]. PMH Psoriasis , E. coli sepsis 2011 at [facility]. Imm UTD, Flu shot annually All NKDA but intolerance to vicodin (vomiting) Injuries none Social getting this weekend. Good support group. 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 No experience. Coffee 1 cup a day and 1-2 pops a week. Denies exposures or illicit drugs. Pap [address] Rand. Before covid very active camping and hiking. ALways wears a seatbelt. Eye exam Jun 2019 Dental twice a year in [facility] Mat aunt 47 with breast cancer MGF diabetes and 70's brain cancer PGM breast cancer Avi Akhtar MD [address] [place], [address], [place] - AVI AKHTAR MD, PHD 04/08/2020 18:04:19 04/24/2020 text/html COVID-19 Symptom s November 2019Reported bypatient.Notes:Leesa bui is here today for a covid test and to receive her flu vaccine. Patient presents to the office with her spouse for her annual influenza vaccination as well as for a covid 19 test. Patient does have some nasal congestion and has to have a negative covid 19 test to get on the plane for her [place] destination. She has not had any fevers or cough or runny nose and feels overall well but tired which she feels has been from working, covid 19 restrictions and planning her wedding. Avi Akhtar MD [address] [place], [address], [facility] - AVI AKHTAR MD, PHD 05/03/2020 12:37:59 OBGyn Episode No OBEpisode recorded.
--- OUTSIDE RECORDS SUMMARY | 2025-02-11 19:37 | XMS_ITS | Clinical Summary ---
Author Organization [facility] tem Address [id number] [address] [place] [address] Care Team Providers Care Information Resources Director Name Role Phone Fito Cueto MD Primary Care Provider + Allergies No known active allergies Medications acetaminophen (TYLENOL EXTRA STRENGTH) 500 mg tablet Take 2 tablets (1,000 mg total) by mouth every 8 (eight) hours as needed for pain. 30 tablet 10/05/2024 Active ibuprofen (MOTRIN) 800 mg tablet Take 1 tablet (800 mg total) by mouth every 8 (eight) hours as needed for pain. 30 tablet 10/05/2024 Active docusate sodium (COLACE) 100 mg capsule Take 1 capsule (100 mg total) by mouth in the morning and 1 capsule (100 mg total) before bedtime. 60 capsule 10/05/2024 Active Active Problems Problem Noted Date Diagnosed Date hemorrhage 10/03/2024 Encounters Date Type Department Care Team Description 12/22/2024 8:22 AM EDT - 12/22/2024 10:17 AM EDT Emergency [facility] - Emergency [address] [place] [address] Miranda Lerner MD Pneumonia of left lower lobe due to infectious organism (Primary Dx) Discharge Disposition: Home 12/22/2024 Travel from Last 3 Months Immunizations No known immunizations Social History Tobacco Use Types Packs/Day Years Used Date Smoking Tobacco: Never Smokeless Tobacco: Never Tobacco Cessation:Counseling Given: Not Answered Alcohol Use Standard Drinks/Week Comments Not Currently 0 (1 standard drink = 0.6 oz pur e alcohol) [facility] Utilities Answer Date Recorded In the past 12 months has th e electric, gas, oil, or water company threatened to shut off services in your [...] got money to buy more. Never True 12/22/2024 Within the past 12 months th e food we bought just didn't last and we didn't have money to get more. Never True 12/22/2024 Purpose - Life Answer Date Recorded Purpose and direction in life Unknown Comments No Sex and Gender Information Value Date Recorded Sex Assigned at Not on file Legal Sex Female 3:55 PM EDT Gender Identity Not on file Sexual Orientation Not on file Last Filed Vital Signs Vital Sign Reading Time Taken Comments Blood Pressure 101/53 12/22/2024 10:10 AM EDT Pulse 115 12/22/2024 10:10 AM EDT Temperature 37.9 C (100.3 F) 12/22/2024 8:27 AM EDT Respiratory Rate 17 12/22/2024 10:10 AM EDT Oxygen Saturation 99% 12/22/2024 10:10 AM EDT Inhaled Oxygen Concentration - - Weight 74.8 kg (165 lb) 12/22/2024 8:27 AM EDT Height 167.6 cm (5' 6 ) 12/22/2024 8:27 AM EDT Body Mass Index 26.63 12/22/2024 8:27 AM EDT Plan of Treatment Health Maintenance Due Date Last Done Comments Adult BMI Follow Up Plan 2009 DTaP,Tdap and Td Vaccines (1 - Tdap) 2010 Pap Smear 2012 Influenza Vaccine 03/25/2025 05/03/2020, 04/06/2016 Depression Screening 10/04/2025 10/04/2024 Adult BMI Screening 12/22/2025 12/22/2024 Tobacco Screening 12/22/2025 12/22/2024 Medical Devices Not on file Procedures Procedure Name Priority Date/Time Associated Diagnosis Comments XR CHEST 2 VWS STAT 12/22/2024 8:55 AM EDT SARS/FLU A+B/RSV BY NAAT/MOLECULAR (M4RT COLLECTION TUBE) STAT 12/22/2024 8:44 AM EDT from Last 3 Months Results * X-ray chest 2 views (12/22/2024 8:55 AM EDT) Anatomical Region Laterality Modality Body, Chest N/A Computed Radiogr aphy 12/22/2024 8:56 AM EDT Narrative 12/22/2024 8:57 AM EDT PA and lateral chest: HISTORY: Cough. 2 views of the chest are obtained. Cardiac and mediastinal contours are within normal limits. Left lower lobe consolidation noted most suggestive of pneumonia. Right lung clear. No pneumothorax or effusion. IMPRESSION: Left lower lobe consolidation, likely pneumonia. Finalized by Dung Travis MD on 12/22/2024 8:57 AM Procedure Note Dung Travis MD - 12/22/2024 PA and lateral chest: HISTORY: Cough. 2 views of the chest are obtained. Cardiac and mediastinal contours arewithin normal limits. Left lower lobe consolidation noted most suggestiveof pneumonia. Right lung clear. No pneumothorax or effusion. IMPRESSION: Left lower lobe consolidation, likely pneumonia. Finalized by Dung Travis MD on 12/22/2024 8:57 AM Miranda Lerner MD IMG DIAGNOSTIC IMAGING ORDERA BLES Final Result * SARS/FLU A+B/RSV by NAAT/Molecular (M4RT Collection Tube) (12/22/2024 8:44 AM EDT) FLU A PCR Negative Negative 12/22/2024 10:02 AM EDT [facility] FLU B PCR Negative Negative 12/22/2024 10:02 AM EDT [facility] RSV BY PCR Negative Negative 12/22/2024 10:02 AM EDT [facility] SARS COV 2 BY PCR Not Detected Not Detected 12/22/2024 10:02 AM EDT [facility] Swab Nasopharyngeal structure / Unknown 12/22/2024 8:44 AM EDT 12/22/2024 8:50 AM EDT Narrative [facility] - 12/22/2024 10:02 AM EDT The Xpert Xpress SARS-CoV-2/Flu/RSV Plus test is a rapid, multiplexed real-time RT-PCR test intended for the simultaneous qualitative detection and differentiation of SARS-CoV-2, influenza A, influenza B and respiratory syncytial virus (RSV) viral RNA from individuals suspected of respiratory viral infection consistent with COVID-19 by Their healthcare provider. This test has not been validated in asymptomatic patients. The Xpert Xpress SARS-CoV-2 test is intended for use by qualified and trained operators who are performing tests using either SpineThera DX or Syncapse systems and is limited to laboratories that meet the CLIA requirements to perform high and moderate complexity tests. The Xpert Xpress SARS-CoV-2/Flu/RSV Plus is only for use under the Food and Drug Administration's Emergency Use Authorization. Results are for the simultaneous detection and differentiation of SARS-CoV-2, influenza A, influenza B and RSV nucleic acids in clinical specimens. SARS-CoV-2, influenza A, influenza B and RSV RNA identified by this test are generally detectable in upper respiratory samples during the acute phase of infection. Positive results are Indicative of the presence of the identified virus, but do not rule out bacterial infection or co-infection with other pathogens not detected by this test. Clinical correlation with patient history and other diagnostic information is necessary to determine patient infection status. The agent detected may not be the definite cause of disease. Negative results do not preclude SARS-CoV-2, influenza A, influenza B and RSV infection and should not be used as the sole basis for treatment or other patient management decisions. Negative results must be combined with clinical observations, patient history and epidemiological information. An Invalid result may occur with specimen-associated inhibition unable to be resolved with specimen repeat. Fact Sheet for Healthcare Providers: https://www.fda.gov/media/692818/download Fact Sheet for Patients: https://www.fda.gov/media/714763/download Miranda Lerner MD MICROBIOLOGY - GENERAL [place] [address], from Last 3 Months Insurance [employer] Member Subscriber Plan / Payer (Ef fective 2024-Present) Name:Ani Anna Darryl Relation to Subscriber:Spouse Name:Mike Law II Date of :1992 (Home) Address: [address] [place] [address] Payer ID:Not on file Type:Not on file Address: [address] [place] [id number] [facility] [employer] [place] [id number] Advance Directives * Full Code (Latest Code Status on File) Date Activated Date Inactivated Comments 10/03/2024 5:41 PM 10/05/2024 5:30 PM Care Teams Information Resources Director Relationship Specialty Start Date End Date Ftio Cueto MD [address] [place] [address] PCP - General Family Medicine 10/04/24
--- OUTSIDE RECORDS SUMMARY | 2025-02-11 19:37 | XMS_ITS | Clinical Summary ---
Author Organization [facility] Address [address], [address] [place] [address] Care Team Providers Care Commonwealth Attorney Name Role Phone Fito Cueto MD Primary Care Provider + Allergies Active Allergy Reactions Criticality Noted Date Comments Hydrocodone Other (See Comments) Medium 08/20/2024 Hydrocodone-Acetaminoph en Nausea And Vomiting,Other (See Comments) Low 03/27/2014 Other Reaction(s): other Medications Oflktxot-Lcd-Qn- FA ( 1 + IRON PO) Take by mouth Active FOLIC ACID PO Take 1 tablet by mouth Active aspirin 81 MG EC tablet Take 1 tablet by mouth daily Active Alcohol Swabs (B-D SINGLE USE SWABS REGULAR) PADS 08/30/2024 Active ONETOUCH ULTRA TEST strip 09/02/2024 Active Lancets (ONETOUCH DELICA PLUS [id number]) MISC 09/02/2024 Active nitrofurantoin, macrocrystal-mon ohydrate, (MACROBID) 100 MG capsule 08/20/2024 Active Active Problems Problem Noted Date Diagnosed Date Excessive growth affec ting management of in third trimester 09/19/2024 32 weeks gestation of 08/20/2024 Placenta previa in third trimester 08/20/2024 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 08/20/2024 Placenta succenturiata in third trimester 2024 Fourth 08/20/2024 Hx of section 08/20/2024 Recurrent UTI 03/03/2015 Microhematuria 03/03/2015 Left flank pain 03/03/2015 Microscopic hematuria 02/18/2015 Other chronic cystitis 02/18/2015 Resolved Problems Problem Noted Date Diagnosed Date Resolved Date Acute kidney failure 02/18/2015 025 Septicemia 02/18/2015 08/20/2024 Immunizations Immunization Administration Dates Next Due Influenza Virus Vaccine 05/03/2020,04/06/2016 Social History Tobacco Use Types Packs/Day Years Used Date Smoking Tobacco: Never Smokeless Tobacco: Never Tobacco Cessation:Counseling Given: No Alcohol Use Standard Drinks/Week Comments Not Currently 0 (1 standard drink = 0.6 oz pur e alcohol) occasional - social Overall Financial Resource Strain (CARDIA) Answe r Date Recorded How hard is it for you to pa y for the very basics like food, housing, medical care, and heating? Not hard at all 06/21/2022 PHQ-2 Answer Date Recorded PHQ-9 Total Score 0 11/09/2023 Hunger Vital Sign Answer Date Recorded Within the past 12 months, y ou worried that your food would run out before you got the money to buy more. Never true 06/21/20 22 Within the past 12 months, t he food you bought just didn't last and you didn't have money to get more. Never true 06/21/2022 Comments No Sex and Gender Information Value Date Recorded Sex Assigned at Female 08/17/2024 10:12 AM EST Legal Sex Female 7:34 PM EST Gender Identity Female 08/17/2024 10:12 AM EST Sexual Orientation Straight 08/17/2024 10 :12 AM EST Occupation Industry Job Start Date Job End Date Student Not on file Not on file Not on file Last Filed Vital Signs Vital Sign Reading Time Taken Comments Blood Pressure 114/72 09/19/2024 2:52 PM EST Pulse 98 09/19/2024 2:52 PM EST Temperature 36.5 C (97.7 F) 09/19/2024 2:52 PM EST Respiratory Rate 16 09/19/2024 2:52 PM EST Oxygen Saturation 97% 11/09/2023 11:45 AM EDT Inhaled Oxygen Concentration - - Weight 85.3 kg (188 lb) 09/19/2024 2:52 PM EST Height 167.6 cm (5' 6 ) 09/19/2024 2:52 PM EST Body Mass Index 30.34 09/19/2024 2:52 PM EST Plan of Treatment Health Maintenance Due Date Last Done Comments Varicella vaccine (1 of 2 - 13+ 2-dose series) 2004 HIV screen 2006 Hepatitis C screen 2009 DTaP/Tdap/Td vaccine (1 - Tdap) 2010 Hepatitis B vaccine (1 of 3 - 19+ 3-dose series) 2010 Pap smear 2012 Cervical cancer screen 2021 HPV (without or with Pap) 2021 COVID-19 Vaccine (1 - 2023-2 5 season) 2024 Depression Screen 11/08/2024 11/09/2023 Flu vaccine (#1) 02/22/2025 05/03/2020, 04/06/2016 HPV vaccine Aged Out No longer eligi ble based on patient's age to complete this topic Hepatitis A vaccine Aged Out No longe r eligible based on patient's age to complete this topic Hib vaccine Aged Out No longer eligi ble based on patient's age to complete this topic Meningococcal (ACWY) vaccine Aged Out No longer eligible based on patient's age to complete this topic Meningococcal B vaccine Aged Out No l onger eligible based on patient's age to complete this topic Pneumococcal 0-49 years Vaccine Aged Out No longer eligible b ased on patient's age to complete this topic Polio vaccine Aged Out No longer elig ible based on patient's age to complete this topic Insurance [employer] Care Teams Commonwealth Attorney Relationship Specialty Start Date End Date Fito Cueto MD [address] [place] [id number] PCP - General Family Medicine 05/20/22
--- OUTSIDE RECORDS SUMMARY | 2025-02-11 19:37 | XMS_ITS | Encounter Summary ---
Author Organization [facility] Address [address] [facility] [place] [address] Care Team Providers Care Second Worker Name Role Phone Fito Cueto MD Primary Care Provider +1- [phone] Encounter Details Date Type Department Care Team (Late Contact Info) Description 02/11/2025 Bamboo flowsheet [facility] [address] [place] [address] Lee Rand DO [facility] [address], [facility]11 Social History Tobacco Use Types Packs/Day Years [...] 02/17/2026 8:30 AM EDT Procedure Visit [facility] [address] [place] [address] Lee Rand DO [facility] [address], [facility]11 documented as of this encounter Goals Goal Patient Goal Type Associated Problems Recent Progress Patient-Stated? Author Reminders Care Plan OB Reminders No Open Scheduling, Background documented as of this encounter Visit Diagnoses Not on filedocumented in this encounter Additional Health Concerns Active Problems Noted Date Diagnosed Date OB Reminders 04/23/2024 documented as of this encounter Care Teams Second Worker Relationship Specialty Start Date End Date Fito Cueto MD [address] [place] [address] PCP - General Family Medicine 02/09/23 documented as of this encounter
--- OUTSIDE RECORDS SUMMARY | 2025-02-11 19:37 | XMS_ITS | Encounter Summary ---
Author Organization [facility] Address [address] [place] [address] Care Team Providers Care Sheet Pile Hammer Operator Name Role Phone Fito Cueto MD Primary Care Provider +1- [phone] Encounter Details Date Type Department Care Team (Late Contact Info) Description 06/24/2024 Clinisync Result Encounter [facility] External Department Unsolicited Melinda Rand, DO [address], [facility]11 Social History Tobacco Use Types Packs/Day [...] Visit [facility] [address] [place] [id number] Melinda Rand DO [address] [place] [address] documented as of this encounter Goals Goal Patient Goal Type Associated Problems Recent Progress Patient-Stated? Author Reminders Care Plan OB Reminders No Open Scheduling, Background documented as of this encounter Procedures Procedure Name Priority Date/Time Associated Diagnosis Comments US OB ANATOMY 06/24/2024 6:16 AM EST documented in this encounter Results * US OB ANATOMY (06/24/2024 6:16 AM EST) Anatomical Region Laterality Modality Other 06/24/2024 6:16 AM EST Narrative 06/24/2024 6:18 [place] [address] Ultrasound Report Signed Patient: ANNA LAW MR#: [id number] : 1990 Acct:[id number] Age/Sex: 34 / F ADM Date: 06/23/24 Loc: US Attending Dr: Melinda Rand D.O. Ordering Physician: Melinda Rand D.O. Date of Service: 06/23/24 Procedure(s): US OB anatomy Accession Number(s): [id number] cc: Melinda Rand D.O.; Physician,Non-Staff M.[place]en [place] [address] Patient Name: ANNA LAW MRN: [id number] date: 1990 Sex: F Assigned Patient Location: US Current Patient Location: Accession/Order Number: [id number] Exam Date: 06/23/2024 14:00 Report Date: 06/24/2024 06:16 At the request of: MELINDA RAND Procedure: US OB anatomy EXAMINATION: US OB anatomy, US OB cervical [...] 2024-11-06 JOSE by EDC: 2024-11-10 US/US OB anatomy IMPRESSION: 1. Single live intrauterine with growth detailed above. 2. Complete previa with placenta is seen anterior and posterior to the cervical os. Electronically authenticated by: ERIC BAUMANN Date: 06/24/2024 06:16 Dictated By: Eric Baumann M.D. Signed By: 06/24/24617 DD/ 5 TD/TT: Mold Stamper And Repairer: Procedure Note Radiology, Radiologist, MD - 06/24/2024 [place] [address] Ultrasound Report Signed Patient: ANNA LAW [facility]#: [id number] : 1990Acct:[id number] Age/Sex: 34 / FADM Date: 06/23/24 Loc: US Attending Dr: Melinda Rand D.O. Ordering Physician: Melinda Rand D.O. Date of Service: 06/23/24 Procedure(s): US OB anatomy Accession Number(s): [id number] cc: Melinda Rand D.O.; Physician,Non-Staff [place] [id number] Patient Name: ANNA LAW MRN: [facility]:[id number] date: 1990 Sex: F Assigned Patient Location: Current Patient Location: Accession/Order Number: [id number] Exam Date: 06/23/2024 14:00 Report Date: 06/24/2024 06:16 At the request of: MELINDA RAND Procedure: US OB anatomy EXAMINATION: US OB anatomy, US OB cervical [...] 2024-11-06 JOSE by EDC: 2024-11-10 US/US OB anatomy IMPRESSION: 1. Single live intrauterine with growth detailed above. 2. Complete previa with placenta is seen anterior and posterior to the cervical os. Electronically authenticated by: ERIC BAUMANN Date: 06/24/2024 06:16 Dictated By: Eric Baumann M.D. Signed By:06/24/24617 DD/ 5 TD/TT: Mold Stamper And Repairer: us Melinda Keyona DO [facility] Final Result documented in this encounter Visit Diagnoses Not on filedocumented in this encounter Additional Health Concerns Active Problems Noted Date Diagnosed Date OB Reminders 04/23/2024 documented as of this encounter Care Teams Sheet Pile Hammer Operator Relationship Specialty Start Date End Date Fito Cueto MD [address] [place] [phone] PCP - General Family Medicine 02/09/23 documented as of this encounter
--- OUTSIDE RECORDS SUMMARY | 2025-02-11 19:37 | XMS_ITS | Encounter Summary ---
Author Organization [facility] Address [address] [facility] [place] [address] Care Team Providers Care Compounding Assistant Name Role Phone Fito Cueto MD Primary Care Provider +1- [phone] Encounter Details Date Type Department Care Team (Late Contact Info) Description 04/05/2024 Abstract [facility] [address] [place] [address] Lee Rand DO [facility] [address], [id number] Social History Tobacco Use Types Packs/Day Years [...] Encounters Date Type Department Care Team (Late Contact Info) Description 02/17/2026 8:30 AM EDT Procedure Visit [facility] [address] [place] [address] Lee Rand DO [facility] [address], [id number] documented as of this encounter Visit Diagnoses Not on filedocumented in this encounter Care Teams Compounding Assistant Relationship Specialty Start Date End Date Fito Cueto MD [address] [place] [address] PCP - General Family Medicine 02/09/23 documented as of this encounter
--- OUTSIDE RECORDS SUMMARY | 2025-02-11 19:37 | XMS_ITS | Encounter Summary ---
Author Organization [facility] Address [address] [facility] [place] [address] Care Team Providers Care Road Mender Name Role Phone Fito Cueto MD Primary Care Provider +1- [phone] Encounter Details Date Type Department Care Team (Late Contact Info) Description 08/15/2024 Abstract [facility] [address] [place] [address] Lee Rand DO [address], [facility]11 Social History Tobacco Use Types [...] 02/17/2026 8:30 AM EDT Procedure Visit [facility] [address] [place] [address] Lee Rand DO [address], [facility]11 documented as of this encounter Goals Goal Patient Goal Type Associated Problems Recent Progress Patient-Stated? Author Reminders Care Plan OB Reminders No Open Scheduling, Background documented as of this encounter Visit Diagnoses Not on filedocumented in this encounter Additional Health Concerns Active Problems Noted Date Diagnosed Date OB Reminders 04/23/2024 documented as of this encounter Care Teams Road Mender Relationship Specialty Start Date End Date Fito Cueto MD [address] [place] [phone] PCP - General Family Medicine 02/09/23 documented as of this encounter
--- OUTSIDE RECORDS SUMMARY | 2025-02-11 19:37 | XMS_ITS | Encounter Summary ---
Author Organization [facility] Address [address] [place] [address] Care Team Providers Care Log Getter Name Role Phone Fito Cueto MD Primary Care Provider +1- [phone] Encounter Details Date Type Department Care Team (Late Contact Info) Description 09/20/2024 Abstract [facility] OB [address] [place] [address] Lee Rand DO [address], [facility]11 Social History Tobacco Use Types Packs/Day Years [...] [place] [address] [place] [address] Lee Rand DO [address], [facility]11 documented as of this encounter Goals Goal Patient Goal Type Associated Problems Recent Progress Patient-Stated? Author Reminders Care Plan OB Reminders No Open Scheduling, Background documented as of this encounter Visit Diagnoses Not on filedocumented in this encounter Additional Health Concerns Active Problems Noted Date Diagnosed Date OB Reminders 04/23/2024 documented as of this encounter Care Teams Log Getter Relationship Specialty Start Date End Date Fito Cueto MD [address] [place] [phone] PCP - General Family Medicine 02/09/23 documented as of this encounter
--- OUTSIDE RECORDS SUMMARY | 2025-02-11 19:37 | XMS_ITS | Clinical Summary ---
Author Organization [facility] Address [address] [place] [address] Care Team Providers Care Ibm Websphere Commerce Consultant Name Role Phone Fito Cueto MD Primary Care Provider +1- [phone] Allergies Active Allergy Reactions Criticality Noted Date Comments Hydrocodone Medium 08/20/2024 Other Reaction(s): Other (See Comments) Hydrocodone-Acetaminoph en GI intolerance,Unknown, Nausea And Vomiting Low 03/27/2014 Other Reaction(s): other Other Reaction(s): Other (See Comments) Medications pseudoephedrine ER (Sudafed-12 Hour) 120 MG 12 hr tablet Take 120 mg by mouth every 12 (twelve) hours Do not crush, chew, or split. Active azithromycin (Zithromax Z-Jose) 250 MG tabletIndication s:Upper respiratory tract infection, unspecified type As directed 6 tablet 5 02/12/20 25 Discontinu ed(Other) Active Problems Problem Noted Date Diagnosed Date Postoperative follow-up 10/08/2024 Cough 10/08/2024 Upper respiratory tract infection 10/08/2024 Encounters Date Type Department Care Team Description 02/11/2025 3:40 PM EDT Office Visit [facility] [address] [place] [address] Lee Rand DO Well woman exam with routine gynecological exam 02/11/2025 Bamboo flowsheet [facility] [address] [place] [address] Lee Rand DO 11/14/2024 1:30 PM EDT Office Visit [facility] [address] [place] [id number] Lee Rand DO Postoperative follow-up 11/14/2024 Bamboo flowsheet [facility] [address] [place] [address] Lee Rand DO 11/13/2024 Travel from Last 3 Months Family History Medical History Relation Name Comments No Known Problems Brother Diabetes Maternal Grandfather Bo Heidtman Arthritis Paternal Grandmother December Cancer Paternal Grandmother December Hypertension Paternal Grandmother December Relation Name Status Comments Brother Alive Father Alive Maternal Grandfather Bo Heidtman Maternal Grandmother Alive Mother Alive Paternal Grandfather Paternal Grandmother December Social History Tobacco Use Types Packs/Day Years Used Date Smoking Tobacco: Never Smokeless Tobacco: Never Tobacco Cessation:Counseling Given: Not Answered Alcohol Use Standard Drinks/Week Comments Never 0 (1 standard drink = 0.6 oz pur e alcohol) Comments No Sex and Gender Information Value Date Recorded Sex Assigned at Female 02/06/2023 4:15 AM EDT Legal Sex Female 11:47 PM EDT Gender Identity Female 02/06/2023 4:15 AM EDT Sexual Orientation Straight 02/06/2023 4: 15 AM EDT Last Filed Vital Signs Vital Sign Reading Time Taken Comments Blood Pressure 120/72 02/11/2025 3:43 PM EDT Pulse - - Temperature - - Respiratory Rate - - Oxygen Saturation - - Inhaled Oxygen Concentration - - Weight 72.5 kg (159 lb 12.8 oz) 02/11/2025 3:43 PM EDT Height 167.6 cm (5' 6 ) 01/02/2024 1:45 PM EDT Body Mass Index 25.79 01/02/2024 1:45 PM EDT Plan of Treatment Upcoming Encounters Date Type Department Care Team (Late st Contact Info) Description 02/17/2026 8:30 AM EDT Procedure Visit [facility] [address] [place] [phone] Lee Rand, DO [address] [place] [address] [place] [address] Goals Goal Patient Goal Type Associated Problems Recent Progress Patient-Stated? Author Reminders Care Plan OB Reminders No Open Scheduling, Background Additional Health Concerns Active Problems Noted Date Diagnosed Date OB Reminders 04/23/2024 Insurance [employer] Care Teams Ibm Websphere Commerce Consultant Relationship Specialty Start Date End Date Fito Cueto MD [address] [place] [address] PCP - General Family Medicine 02/09/23
--- OUTSIDE RECORDS SUMMARY | 2025-02-11 19:37 | XMS_ITS | Encounter Summary ---
Author Organization [facility] Address [address] [facility] [place] [address] Care Team Providers Care Warehouse Supervisor Name Role Phone Fito Cueto MD Primary Care Provider +1- [phone] Encounter Details Date Type Department Care Team (Late st Contact Info) Description 10/05/2024 Abstract [facility] [address] [place] [address] Lee Rand DO [address] [place] [place], [facility]11 Social History Tobacco Use Types Packs/Day [...] 02/17/2026 8:30 AM EDT Procedure Visit [facility] [address] [place] [address] Lee Rand DO [address] [place], [facility]11 documented as of this encounter Goals Goal Patient Goal Type Associated Problems Recent Progress Patient-Stated? Author Reminders Care Plan OB Reminders No Open Scheduling, Background documented as of this encounter Visit Diagnoses Not on filedocumented in this encounter Additional Health Concerns Active Problems Noted Date Diagnosed Date OB Reminders 04/23/2024 documented as of this encounter Care Teams Warehouse Supervisor Relationship Specialty Start Date End Date Fito Cueto MD [address] [place] [id number] PCP - General Family Medicine 02/09/23 documented as of this encounter
--- OUTSIDE RECORDS SUMMARY | 2025-02-11 19:37 | XMS_ITS | Encounter Summary ---
Author Organization [facility] Address [address] [place] [address] Care Team Providers Care Lock And Dam Equipment Repairer Name Role Phone Fito Cueto MD Primary Care Provider +1- [phone] Encounter Details Date Type Department Care Team (Late st Contact Info) Description 01/11/2024 Clinisync Result Encounter [facility] External Department Unsolicited Melinda Rand, DO [address] [place] [address] Social History Tobacco Use Types Packs/Day Years [...] Visit [facility] [address] [place] [id number] Melinda Rand DO [address] [place] [address] documented as of this encounter Procedures Procedure Name Priority Date/Time Associated Diagnosis Comments FL HYSTEROSALPINGOGRAM 9:55 AM EDT documented in this encounter Results * FL HYSTEROSALPINGOGRAM (01/11/2024 9:55 AM EDT) Anatomical Region Laterality Modality Other 01/11/2024 9:55 AM EDT Narrative 01/11/2024 9:58 [place] [address] Fluoroscopy Report Signed Patient: ANNA LAW MR#: [id number] : 1990 Acct:[id number] Age/Sex: 33 / F ADM Date: 01/11/24 Loc: LAB Attending Dr: Melinda Rand D.O. Ordering Physician: Melinda Rand D.O. Date of Service: 01/11/24 Procedure(s): FL Hysterosal cath placement Accession Number(s): [id number] cc: Melinda Rand D.O. [place] [address] Patient Name: ANNA LAW MRN: [id number] date: 1990 Sex: F Assigned Patient Location: LAB Current Patient Location: LAB Accession/Order Number: [id number] Exam Date: 01/11/2024 08:15 Report Date: 01/11/2024 09:55 At the request of: MELINDA RAND Procedure: FL Hysterosal cath placement EXAMINATION: FL hysterosalpingography, FL Hysterosal cath placement [...] filling defects, or dilatation. OTHER: Negative. FL/FL Hysterosal cath placement IMPRESSION: 1. Patent fallopian tubes bilaterally with dilated segments of uncertain clinical significance as detailed above. Electronically authenticated by: ERIC BAUMANN Date: 01/11/2024 09:55 Dictated By: Eric Baumann M.D. Signed By: 01/11/2458 DD/ 4 TD/TT: Outside B2B Sales: Procedure Note Radiology, Radiologist, MD - 01/11/2024 [place] [address] Fluoroscopy Report Signed Patient: ANNA LAW AMR#: [id number] : 1990Acct:[id number] Age/Sex: 33 / FADM Date: 01/11/24 Loc: LAB Attending Dr: Melinda Rand D.O. Ordering Physician: Melinda Rand D.O. Date of Service: 01/11/24 Procedure(s): FL Hysterosal cath placement Accession Number(s): [id number] cc: Melinda Rand D.O. [place] [address] Patient Name: ANNA LAW MRN: [id number] date: 1990 Sex: F Assigned Patient Location: LAB Current Patient Location: LAB Accession/Order Number: [id number] Exam Date: 01/11/2024 08:15 Report Date: 01/11/2024 09:55 At the request of: MELINDA RAND Procedure: FL Hysterosal cath placement EXAMINATION: FL hysterosalpingography, FL Hysterosal cath placement [...] filling defects, or dilatation. OTHER: Negative. FL/FL Hysterosal cath placement IMPRESSION: 1. Patent fallopian tubes bilaterally with dilated segments of uncertain clinical significance as detailed above. Electronically authenticated by: ERIC BAUMANN Date: 01/11/2024 09:55 Dictated By: Eric Baumann M.D. Signed By:01/11/24957 DD/ 4 TD/TT: Outside B2B Sales: Melinda Keyona DO [facility] Final Result documented in this encounter Visit Diagnoses Not on filedocumented in this encounter Care Teams Lock And Dam Equipment Repairer Relationship Specialty Start Date End Date Fito Cueto MD [address] [place] [address] PCP - General Family Medicine 02/09/23 documented as of this encounter
--- OUTSIDE RECORDS SUMMARY | 2025-02-11 19:37 | XMS_ITS | Encounter Summary ---
Author Organization [facility] Address [address] [facility] [place] [address] Care Team Providers Care Cytotechnologist/Histotechnologist Name Role Phone Fito Cueto MD Primary Care Provider +1- [phone] Encounter Details Date Type Department Care Team (Late Contact Info) Description 09/13/2024 Abstract [facility] [address] [place] [address] Lee Rand DO [address] [place], [facility]11 Social History Tobacco Use Types Packs/Day Years [...] 02/17/2026 8:30 AM EDT Procedure Visit [facility] [address] [place] [address] Lee Rand DO [address] [place], [facility]11 documented as of this encounter Goals Goal Patient Goal Type Associated Problems Recent Progress Patient-Stated? Author Reminders Care Plan OB Reminders No Open Scheduling, Background documented as of this encounter Visit Diagnoses Not on filedocumented in this encounter Additional Health Concerns Active Problems Noted Date Diagnosed Date OB Reminders 04/23/2024 documented as of this encounter Care Teams Cytotechnologist/Histotechnologist Relationship Specialty Start Date End Date Fito Cueto MD [address] [place] [phone] PCP - General Family Medicine 02/09/23 documented as of this encounter
--- OUTSIDE RECORDS SUMMARY | 2025-02-11 19:37 | XMS_ITS | Encounter Summary ---
Author Organization [facility] Address [address] [place] [address] Care Team Providers Care Sonography Technologist Name Role Phone Fito Cueto MD Primary Care Provider +1- [phone] Encounter Details Date Type Department Care Team (Late Contact Info) Description 04/05/2024 Clinisync Result Encounter [facility] External Department Unsolicited Melinda Rand, DO [address] [place] [address] Social History Tobacco Use Types Packs/Day Years [...] 02/17/2026 8:30 AM EDT Procedure Visit [facility] [address] [place] [phone] Melinda Rand DO [address] [place] [address] documented as of this encounter Procedures Procedure Name Priority Date/Time Associated Diagnosis Comments US OB TRANSVAGINAL 04/05/2024 2: 19 PM EDT documented in this encounter Results * US OB TRANSVAGINAL (04/05/2024 2:19 PM EDT) Anatomical Region Laterality Modality Other 04/05/2024 2:19 PM EDT Narrative 04/05/2024 2:21 PM EDT [address] [address] Ultrasound Report Signed Patient: ANNA LAW MR#: [id number] : 1990 Acct:[id number] Age/Sex: 34 / F ADM Date: 04/05/24 Loc: [facility] Attending Dr: Melinda Rand D.O. Ordering Physician: Melinda Rand D.O. Date of Service: 04/05/24 Procedure(s): US OB transvaginal Accession Number(s): [id number] cc: Melinda Rand D.O.; Physician,Non-Staff M.D. The [address] [address] Patient Name: ANNA LAW MRN: [id number] date: 1990 Sex: F Assigned Patient Location: [facility] Current Patient Location: [facility] Accession/Order Number: [id number] Exam Date: 04/05/2024 13:38 Report Date: 04/05/2024 14:19 At the request of: MELINDA RAND Procedure: US OB transvaginal EXAMINATION: US OB transvaginal HISTORY: MISSED MENSES COMPARISON: No relevant comparison available. FINDINGS: Transvaginal images Aragon intrauterine gestation Gestational sac: 3.06 cm, 8 weeks 0 days CRL: 1.6 cm, 8 weeks 4 days Yolk sac: 5.1 mm Heart rate: 184 beats minute Cervix: Closed, 3.7 cm The uterus is normal, anteverted, anteflexed The ovaries are normal Clinical age: 8 weeks 5 days Clinical JOSE: 11/10/2024 Ultrasound age: 8 weeks 4 days Ultrasound JOSE: 11/11/2024 US/US OB transvaginal IMPRESSION: Viable aragon intrauterine gestation measuring 8 weeks 4 days Electronically authenticated by: RIGO FISCHER Date: 04/05/2024 14:19 Dictated By: Rigo Fischer M.D. Signed By: 04/05/24 1421 DD/ 1419 TD/TT: Academic Advisor: Procedure Note Radiology, Radiologist, - 04/05/2024 [place] [address] Ultrasound Report Signed Patient: ANNA LAW AMR#: [id number] : 1990Acct:[id number] Age/Sex: 34 / FADM Date: 04/05/24 Loc: [facility] Attending Dr: Melinda Rand D.O. Ordering Physician: Melinda Rand D.O. Date of Service: 04/05/24 Procedure(s): US OB transvaginal Accession Number(s): [id number] cc: Melinda Rand D.O.; Physician,Non-Staff Prachi.Herbert The [place] [id number] Patient Name: ANNA LAW MRN: [id number] date: 1990 Sex: F Assigned Patient Location: [facility] Current Patient Location: [facility] Accession/Order Number: [id number] Exam Date: 04/05/2024 13:38 Report Date: 04/05/2024 14:19 At the request of: MELINDA RAND Procedure: US OB transvaginal EXAMINATION: US OB transvaginal HISTORY: MISSED MENSES COMPARISON: No relevant comparison available. FINDINGS: Transvaginal images Aragon intrauterine gestation Gestational sac: 3.06 cm, 8 weeks 0 days CRL: 1.6 cm, 8 weeks 4 days Yolk sac: 5.1 mm Heart rate: 184 beats minute Cervix: Closed, 3.7 cm The uterus is normal, anteverted, anteflexed The ovaries are normal Clinical age: 8 weeks 5 days Clinical JOSE: 11/10/2024 Ultrasound age: 8 weeks 4 days Ultrasound JOSE: 11/11/2024 US/US OB transvaginal IMPRESSION: Viable aragon intrauterine gestation measuring 8 weeks 4 days Electronically authenticated by: RIGO FISCHER Date: 04/05/2024 14:19 Dictated By: Rigo Fischer M.D. Signed By:04/05/24 1421 DD/ 1419 TD/TT: Academic Advisor: us Melinda Rand DO [facility] Final Result documented in this encounter Visit Diagnoses Not on filedocumented in this encounter Care Teams Sonography Technologist Relationship Specialty Start Date End Date Fito Cueto MD [address] [place] [address] PCP - General Family Medicine 02/09/23 documented as of this encounter
--- OUTSIDE RECORDS SUMMARY | 2025-02-11 19:37 | XMS_ITS | Encounter Summary ---
Author Organization [facility] Address [address] [facility] [place] [address] Care Team Providers Care Sports Administrator Name Role Phone Fito Cueto MD Primary Care Provider +1- [phone] Encounter Details Date Type Department Care Team (Late Contact Info) Description 04/05/2024 Abstract [facility] [address] [place] [address] Lee Rand DO [facility] [address] [place], [facility]11 Social History Tobacco Use Types Packs/Day [...] 02/17/2026 8:30 AM EDT Procedure Visit [facility] [address] [place] [address] Lee Rand DO [facility] [address] [place], [facility]11 documented as of this encounter Visit Diagnoses Not on filedocumented in this encounter Care Teams Sports Administrator Relationship Specialty Start Date End Date Fito Cueto MD [address] [place] [address] PCP - General Family Medicine 02/09/23 documented as of this encounter
--- OUTSIDE RECORDS SUMMARY | 2025-02-11 19:37 | XMS_ITS | Encounter Summary ---
Author Organization [facility] Address [address] [facility] [place] [address] Care Team Providers Care Data Integration Architect Name Role Phone Fito Cueto MD Primary Care Provider +1- [phone] Encounter Details Date Type Department Care Team (Late Contact Info) Description 04/16/2024 Abstract [facility] [address] [place] [address] Lee Rand DO [facility] [address] [place], [facility] Social History Tobacco Use Types Packs/Day Years [...] 02/17/2026 8:30 AM EDT Procedure Visit [facility] [address] [place] [address] Lee Rand DO [facility] [address] [place], [facility] documented as of this encounter Visit Diagnoses Not on filedocumented in this encounter Care Teams Data Integration Architect Relationship Specialty Start Date End Date Fito Cueto MD [address] [place] [address] PCP - General Family Medicine 02/09/23 documented as of this encounter
--- OUTSIDE RECORDS SUMMARY | 2025-02-11 19:37 | XMS_ITS | Encounter Summary ---
Author Organization [facility] Address [address] [facility] [place] [address] Care Team Providers Care Locomotive Observer Name Role Phone Fito Cueto MD Primary Care Provider +1- [phone] Encounter Details Date Type Department Care Team (Late Contact Info) Description 08/22/2024 Abstract [facility] [address] [place] [address] Lee Rand DO [address] [place], [facility]11 Social History Tobacco Use Types [...] 02/17/2026 8:30 AM EDT Procedure Visit [facility] [address] [place] [address] Lee Rand DO [address] [place], [facility]11 documented as of this encounter Goals Goal Patient Goal Type Associated Problems Recent Progress Patient-Stated? Author Reminders Care Plan OB Reminders No Open Scheduling, Background documented as of this encounter Visit Diagnoses Not on filedocumented in this encounter Additional Health Concerns Active Problems Noted Date Diagnosed Date OB Reminders 04/23/2024 documented as of this encounter Care Teams Locomotive Observer Relationship Specialty Start Date End Date Fito Cueto MD [address] [place] [id number] PCP - General Family Medicine 02/09/23 documented as of this encounter
--- OUTSIDE RECORDS SUMMARY | 2025-02-11 19:40 | XMS_ITS | CCD ---
Author Organization [facility] Care Team Providers Care Fabric Designer Name Role Phone KEYONA, DR LAWRENCE Admitting Unavailable KEYONA, DR LAWRENCE Attending Unavailable GIOVANA, DR AVI Velarde Primary Care Unavail able WEST, DR RIGO Medina Consulting Unavailable KEYONA, DR LAWRENCE Consulting Unavailable KEYONA, DR LAWRENCE Admitting Unavailable KEYONA, DR ALWRENCE Attending Unavailable GIOVANA, DR AVI Velarde Primary [...] Unavail able TELLY, DR PENNINGTON Admitting Unavailable KARSHARMILA, DR PENNINGTON Attending Unavailable KANDISASIK, DR PENNINGTON Consulting Unavailable BOSLER, DR RIGO Medina Consulting Unavailable KEYONA, DR LAWRENCE Consulting Unavailable Fito Cueto MD Primary Care Provider Unavailable Primary Care Provider UnavailFito Sinha MD Primary Care Provider MERLIN NORWOOD Attending Unavailable MERLIN NORWOOD Admitting Unavailable RIGO MARROQUIN Admitting Unavailable SRIKANTH ESCOBAR Referring Unavailable JOHN JORDAN Consulting Unavailable JV LONGO Attending Unavailable KEYONA, LEE Attending Unavailable KEYONA, LEE Attending Unavailable KEYONA, LEE Attending Unavailable KEYONA, LEE Attending Unavailable KEYONA, LEE Attending Unavailable KEYONA, LEE Attending Unavailable KEYONA, LEE Attending Unavailable KEYONA, LEE Attending Unavailable KEYONA, LEE Attending Unavailable KEYONA, LEE Attending Unavailable KEYONA, LEE Attending Unavailable Fito Cueto MD Primary Care Provider Allergies Allergy Classification Reported Allergen(s) Allergy Type Date of Onset Reaction(s) Facility (2 sources) Acetaminophen / HYDROcodone Drug Allergy [facility] Medications Current Medications Medication Drug Class(es) Dates Sig (Normalized) Sig (Original) aspirin 81 mg delayed release oral tablet (11 sources) Platelet Aggregation Inhibitor, Nonsteroidal Anti-inflammatory Drug take 1 tablet by mouth once daily aspirin 81 MG EC tablet Take 81 mg by mouth Daily Active azithromycin 250 mg oral tablet (4 sources) Macrolide Antimicrobial Start: 10-08-2024 azithromycin (Zithromax Z-Jose) 250 MG tablet Indications: Upper respiratory tract infection, unspecified type As directed 6 tablet 10/08/2024 Active Blood Glucose Monitoring Suppl (D-Care Glucometer) [...] EACH DAY 30 tablet 3 10/13/2023 Active 12 hr pseudoephedrine hydrochloride 120 mg extended release oral tablet (4 sources) alpha-Adrenergic Agonist pseudoe phedrine ER (Sudafed-12 Hour) 120 MG 12 hr tablet Take 120 mg by mouth every 12 (twelve) hours Do not crush, chew, or split. Active Completed/Discontinued Medications Medication Drug Class(es) Dates [...] NA/UNS] Onset: 05-03-2022 Episodic Other complications of ; puerperium affecting management of mother (4 sources) hemorrhage; Translations: [Other immediate hemorrhage] Onset: 10-03-2024 10-03-2024 Episodic Other complications of ; puerperium affecting management of mother (1 source) Other immediate hemorrhage; Translations: [Other immediate hemorrhage] Onset: 10-03-2024 Episodic Other complications of (5 sources) Maternal [...] noninflammatory disorders of vagina] 06-11-2024 Episodic Other nervous system disorders (1 source) Other acute postprocedural pain; Translations: [Other acute postprocedural pain] Onset: 10-03-2024 Episodic Other and delivery including normal (20 [...] Translations: [HEMORRHAGE EARLY UNS] Onset: 11-02-2021 Episodic Mood disorders (2 sources) Mood disorders Onset: 10-04-2024 10-04-2024 Other aftercare (6 sources) Surgical follow-up; Translations: [Encounter for follow-up examination after completed treatment for conditions other than malignant neoplasm] Onset: 10-08-2024 10-08-2024 Episodic Other female genital disorders (1 source) Other specified noninflammatory disorders of vagina; Translations: [OTH SPEC NONINFLAMMATORY D/O VAGINA] Onset: 02-03-2022 Episodic Other lower respiratory disease (4 sources) Cough; Translations: [Cough] Onset: 10-08-2024 10-08-2024 Episodic Other upper respiratory infections (4 sources) Upper respiratory infection; Translations: [Acute upper respiratory infection, unspecified] Onset: 10-08-2024 10-08-2024 Episodic Residual codes; unclassified (1 source) 20 [...] Test Name Value Interpretation Reference Range Facility BASIC METABOLIC PANLon 10-05 Anion gap [Moles/Vol] 6 mmol/L Normal 5-15 [facility] Comment on above: Performed By: #### C BCA, 12495-5, CMP, 70176-4, 2777-1, 93175- 7, PINR, 87405-3 #### [facility] ([id number]) [address], [address] [place] [address] Calcium [Mass/Vol] 7.3 mg/dL Low 8.5-10.5 [facility] Comment on above: Performed By: #### C BCA, 59588-0, CMP, 25813-2, 2777-1, 65424- 7, PINR, 77055-4 #### [facility] ([id number]) [address], [address] [place] [address] Chloride [Moles/Vol] 108 mmol/L Normal 98-109 [facility] Comment on above: Performed By: #### C BCA, 23802-6, CMP, 83319-0, 2777-1, 75564- 7, PINR, 88886-7 #### [facility] ([id number]) [address], [address] [place] [address] CO2 [Moles/Vol] 23 mmol/L Normal 22-32 [facility] Comment on above: Performed By: #### C BCA, 34796-5, CMP, 90750-7, 2777-1, 00586- 7, PINR, 75304-8 #### [facility] ([id number]) [address], [address] [place] [address] Creatinine [Mass/Vol] 0.55 mg/dL Normal 0.40-1.00 [facility] Comment on above: Result Comment: METH OD TRACEABLE TO IDMS STANDARD Performed By: #### C BCA, 94183-4, CMP, 96965-1, 2777-1, 22316-9, PINR, 64807-9 #### [facility] ([id number]) [address], [address] [place] [address] eGFR (CKD-EPI) NON-RACE DEPENDENT >90 Normal >59 [facility] Comment on above: Result Comment: Reported eGFR is based on the CKD-EPI 2020 equation that does not use a race coefficient. Performed By: #### C BCA, 73485-1, CMP, 74162-8, 2777-1, 28409-6, PINR, 87298-0 #### [facility] ([id number]) [address], [address] [place] [address] Glucose [Mass/Vol] 77 mg/dL Normal 65-99 [facility] Comment on above: Performed By: #### C BCA, 30630-3, CMP, 30244-7, 2777-1, 31913- 7, PINR, 91933-7 #### [facility] ([id number]) [address], [address] [place] [address] Potassium [Moles/Vol] 3.9 mmol/L Normal 3.5-5.0 [facility] Comment on above: Performed By: #### C BCA, 88471-8, CMP, 04978-1, 2777-1, 68929- 7, PINR, 99068-6 #### [facility] ([id number]) [address], [address] [place] [address] Sodium [Moles/Vol] 137 mmol/L Normal 134-146 [facility] Comment on above: Performed By: #### C BCA, 11694-1, CMP, 95335-9, 2777-1, 07983- 7, PINR, 42068-0 #### [facility] ([id number]) [address], [address] [place] [address] Urea nitrogen [Mass/Vol] 12 mg/dL Normal 5-23 [facility] Comment on above: Performed By: #### C BCA, 22896-6, CMP, 59476-6, 2777-1, 46593- 7, PINR, 47523-3 #### [facility] ([id number]) [address], [address] [place] [address] CBC AND AUTO DIFFon 10-06-19 25 ABSOLUTE BASOPHIL 0.0 X10E9/L Normal 0.0-0.2 [facility] Comment on above: Performed By: #### C BCA, 12972-9, CMP, 16897-0, 2777-1, 04265- 7, PINR, 93452-4 #### [facility] ([id number]) [address], [address] [place] [address] ABSOLUTE NEUTROPHIL 5.3 X10E9/L Normal 1.5-6.6 [facility] Comment on above: Performed By: #### C BCA, 09393-6, CMP, 68476-4, 2777-1, 80594- 7, PINR, 25954-4 #### [facility] ([id number]) [address], [address] [place] [address] Basophils/100 WBC (Bld) 0.6 % Normal [facility] Comment on above: Performed By: #### C BCA, 69875-7, CMP, 02811-4, 2777-1, 65802- 7, PINR, 07073-5 #### [facility] ([id number]) [address], [facility] [address] [place] [address] Eosinophils (Bld) [#/Vol] 0.0 10*3/uL Normal 0.0-0.4 [facility] Comment on above: Performed By: #### C BCA, 98027-7, CMP, 89202-5, 2777-1, 40669- 7, PINR, 59343-4 #### [facility] ([id number]) [address], [address] [place] [address] Eosinophils/100 WBC (Bld) 0.4 % Normal [facility] Comment on above: Performed By: #### C BCA, 11896-1, CMP, 58769-2, 2777-1, 35010- 7, PINR, 28060-8 #### [facility] ([id number]) [address], [address] [place] [address] Erythrocyte distribution width (RBC) [Ratio] 16.0 % High 11.5-15.0 [facility] Comment on above: Performed By: #### C BCA, 91432-0, CMP, 16772-0, 2777-1, 33470- 7, PINR, 94629-1 #### [facility] ([id number]) [address], [address] [place] [address] Hematocrit (Bld) [Volume fraction] 21.0 % Low 35-47 [facility] Comment on above: Performed By: #### C BCA, 07345-3, CMP, 82127-8, 2777-1, 93655- 7, PINR, 68454-2 #### [facility] ([id number]) [address], [address] [place] [address] Hemoglobin (Bld) [Mass/Vol] 7.4 g/dL Low 11.7-15.5 [facility] Comment on above: Performed By: #### C BCA, 97330-8, CMP, 53786-3, 2777-1, 53678- 7, PINR, 15984-0 #### [facility] ([id number]) [address], [address] [place] [address] Lymphocytes (Bld) [#/Vol] 2.1 10*3/uL Normal 1.0-3.5 [facility] Comment on above: Performed By: #### C BCA, 84064-5, CMP, 14139-3, 2777-1, 78756- 7, PINR, 32400-4 #### [facility] ([id number]) [address], [address] [place] [address] Lymphocytes/100 WBC (Bld) 25.9 % Normal [facility] Comment on above: Performed By: #### C BCA, 02313-5, CMP, 64291-6, 2777-1, 56778- 7, PINR, 36036-3 #### [facility] ([id number]) [address], [address] [place] [address] MCH (RBC) [Entitic mass] 31.1 pg Normal 27-34 [facility] Comment on above: Performed By: #### C BCA, 21692-5, CMP, 58864-7, 2777-1, 57309- 7, PINR, 16208-2 #### [facility] ([id number]) [address], [address] [address] MCHC (RBC) [Mass/Vol] 35.3 g/dL Normal 32-36 [facility] Comment on above: Performed By: #### C BCA, 34895-0, CMP, 66469-0, 2777-1, 86349- 7, PINR, 65277-2 #### [facility] ([id number]) [address] [address] MCV (RBC) [Entitic vol] 88 fL Normal 80-100 [facility] Comment on above: Performed By: #### C BCA, 60244-4, CMP, 64768-7, 2777-1, 56337- 7, PINR, 67951-4 #### [facility] ([id number]) [address] [address] Monocytes (Bld) [#/Vol] 0.6 10*3/uL Normal 0-0.9 [facility] Comment on above: Performed By: #### C BCA, 37893-4, CMP, 64865-0, 2777-1, 16831- 7, PINR, 39667-1 #### [facility] ([id number]) [address] [address] Monocytes/100 WBC (Bld) 7.2 % Normal [facility] Comment on above: Performed By: #### C BCA, 71918-1, CMP, 29107-8, 2777-1, 39459- 7, PINR, 22128-0 #### [facility] ([id number]) [address] [address] Neutrophils/100 WBC (Bld) 65.9 % Normal [facility] Comment on above: Performed By: #### C BCA, 12049-6, CMP, 47163-8, 2777-1, 23710- 7, PINR, 93192-6 #### [facility] ([id number]) [address] [place] [address] Platelet mean volume (Bld) [Entitic vol] 7.8 fL Normal 7-12 [facility] Comment on above: Performed By: #### C BCA, 96131-7, CMP, 97622-2, 2777-1, 06276- 7, PINR, 10428-3 #### [facility] ([id number]) [address], [address] [place] [address] Platelets (Bld) [#/Vol] 152 10*3/uL Normal 150-450 [facility] Comment on above: Performed By: #### C BCA, 15701-8, CMP, 37310-3, 2777-1, 64126- 7, PINR, 69947-6 #### [facility] ([id number]) [address], [facility] [address] [place] [address] RBC COUNT 2.38 X10E12/L Low 3.80-5.20 [facility] Comment on above: Performed By: #### C BCA, 40568-8, CMP, 17690-6, 2777-1, 99337- 7, PINR, 34811-4 #### [facility] ([id number]) [address], [address] [place] [address] WBC (Bld) [#/Vol] 8.0 10*3/uL Normal 4.0-11.0 [facility] Comment on above: Performed By: #### C BCA, 57046-1, CMP, 66500-9, 2777-1, 98369- 7, PINR, 38327-1 #### [facility] ([id number]) [address], [address] [place] [address] HGBon 10-05-2024 Hematocrit (Bld) [Volume fraction] 23.4 % Low 35-47 [facility] Comment on above: Performed By: #### C BCA, 85033-4, CMP, 10023-5, 2777-1, 22385- 7, PINR, 49383-4 #### [facility] ([id number]) [address], [address] [place] [address] Hemoglobin (Bld) [Mass/Vol] 8.1 g/dL Low 11.7-15.5 [facility] Comment on above: Performed By: #### C BCA, 02206-8, CMP, 39696-0, 2777-1, 85298- 7, PINR, 42712-1 #### [facility] ([id number]) [address], [address] [place] [address] Hematocrit (Bld) [Volume fraction] 18.8 % Low 35-47 [facility] Comment on above: Performed By: #### C BCA, 06679-1, CMP, 07276-0, 2777-1, 33484- 7, PINR, 82151-6 #### [facility] ([id number]) [address], [address] [place] [address] Hemoglobin (Bld) [Mass/Vol] 6.5 g/dL Critically low 11.7-15.5 [facility] Comment on above: Performed By: #### C BCA, 27277-3, CMP, 20566-7, 2777-1, 65070- 7, PINR, 35790-1 #### [facility] ([id number]) [address], [address] [place] [address] MAGNESIUMon 10-05-2024 Magnesium [Mass/Vol] 1.6 mg/dL Low 1.8-2.6 [facility] Comment on above: Performed By: #### C BCA, 85482-1, CMP, 41063-5, 2777-1, 30701- 7, PINR, 41220-6 #### [facility] ([id number]) [address], [address] [place] [address] PHOSPHORUSon 10-05-2024 Phosphate [Mass/Vol] 3.8 mg/dL Normal 2.4-4.9 [facility] Comment on above: Performed By: #### C BCA, 08622-5, CMP, 90377-3, 2777-1, 36102- 7, PINR, 66617-0 #### [facility] ([id number]) [address], [address] [place] [address] BASIC METABOLIC PANLon 10-04 Anion gap [Moles/Vol] 5 mmol/L Normal 5-15 [facility] Comment on above: Performed By: #### C BCA, 04552-3, CMP, 99069-8, 2777-1, 73013- 7, PINR, 15175-1 #### [facility] ([id number]) [address], [address] [place] [address] Calcium [Mass/Vol] 7.5 mg/dL Low 8.5-10.5 [facility] Comment on above: Performed By: #### C BCA, 45719-9, CMP, 71873-6, 2777-1, 25485- 7, PINR, 51997-7 #### [facility] ([id number]) [address], [address] [place] [address] Chloride [Moles/Vol] 108 mmol/L Normal 98-109 [facility] Comment on above: Performed By: #### C BCA, 56175-2, CMP, 01315-6, 2777-1, 55592- 7, PINR, 15246-3 #### [facility] ([id number]) [address], [address] [place] [address] CO2 [Moles/Vol] 19 mmol/L Low 22-32 [facility] Comment on above: Performed By: #### C BCA, 30339-7, CMP, 42833-1, 2777-1, 80870- 7, PINR, 27435-7 #### [facility] ([id number]) [address], [address] [place] [address] Creatinine [Mass/Vol] 0.59 mg/dL Normal 0.40-1.00 [facility] Comment on above: Result Comment: METH OD TRACEABLE TO IDMS STANDARD Performed By: #### C BCA, 83239-6, CMP, 49784-2, 2777-1, 63205-0, PINR, 87701-7 #### [facility] ([id number]) [address], [address] [place] [address] eGFR (CKD-EPI) NON-RACE DEPENDENT >90 Normal >59 [facility] Comment on above: Result Comment: Reported eGFR is based on the CKD-EPI 2020 equation that does not use a race coefficient. Performed By: #### C BCA, 79127-2, CMP, 61460-3, 2777-1, 93881-8, PINR, 02934-0 #### [facility] ([id number]) [address], [address] [place] [address] Glucose [Mass/Vol] 108 mg/dL High 65-99 [facility] Comment on above: Performed By: #### C BCA, 93964-2, CMP, 51785-8, 2777-1, 89211- 7, PINR, 44982-9 #### [facility] ([id number]) [address], [address] [place] [address] Potassium [Moles/Vol] 4.9 mmol/L Normal 3.5-5.0 [facility] Comment on above: Performed By: #### C BCA, 76261-8, CMP, 20708-8, 2777-1, 84011- 7, PINR, 00594-0 #### [facility] ([id number]) [address], [address] [place] [address] Sodium [Moles/Vol] 132 mmol/L Low 134-146 [facility] Comment on above: Performed By: #### C BCA, 58930-3, CMP, 36418-1, 2777-1, 94752- 7, PINR, 94746-8 #### [facility] ([id number]) [address], [address] [place] [address] Urea nitrogen [Mass/Vol] 8 mg/dL Normal 5-23 [facility] Comment on above: Performed By: #### C BCA, 96791-0, CMP, 02824-6, 2777-1, 54944- 7, PINR, 57517-6 #### [facility] ([id number]) [address], [address] [place] [address] CBC AND AUTO DIFFon 10-05-19 25 ABSOLUTE BASOPHIL 0.1 X10E9/L Normal 0.0-0.2 [facility] Comment on above: Performed By: #### C BCA, 32611-1, CMP, 74573-5, 2777-1, 54263- 7, PINR, 17961-4 #### [facility] ([id number]) [address], [address] [place] [address] ABSOLUTE NEUTROPHIL 8.2 X10E9/L High 1.5-6.6 [facility] Comment on above: Performed By: #### C BCA, 47339-0, CMP, 80800-4, 2777-1, 77623- 7, PINR, 63279-9 #### [facility] ([id number]) [address] [address] [place] [address] Basophils/100 WBC (Bld) 0.6 % Normal [facility] Comment on above: Performed By: #### C BCA, 85932-2, CMP, 02756-0, 2777-1, 46523- 7, PINR, 84580-3 #### [facility] ([id number]) [address], [address] [place] [address] Eosinophils (Bld) [#/Vol] 0.0 10*3/uL Normal 0.0-0.4 [facility] Comment on above: Performed By: #### C BCA, 64307-5, CMP, 13222-4, 2777-1, 52483- 7, PINR, 34631-4 #### [facility] ([id number]) [address] [address] [place] [address] Eosinophils/100 WBC (Bld) 0.0 % Normal [facility] Comment on above: Performed By: #### C BCA, 70103-8, CMP, 25251-8, 2777-1, 16981- 7, PINR, 24375-4 #### [facility] ([id number]) [address], [facility] [address] [place] [address] Erythrocyte distribution width (RBC) [Ratio] 14.8 % Normal 11.5-15.0 [facility] Comment on above: Performed By: #### C BCA, 76398-0, CMP, 82067-4, 2777-1, 29916- 7, PINR, 31807-9 #### [facility] ([id number]) [address], [facility] [address] [place] [address] Hematocrit (Bld) [Volume fraction] 21.6 % Low 35-47 [facility] Comment on above: Performed By: #### C BCA, 95535-6, CMP, 83206-7, 2777-1, 08939- 7, PINR, 01623-8 #### [facility] ([id number]) [address] [address] [place] [address] Hemoglobin (Bld) [Mass/Vol] 7.4 g/dL Low 11.7-15.5 [facility] Comment on above: Performed By: #### C BCA, 87914-6, CMP, 98140-9, 2777-1, 71512- 7, PINR, 37298-5 #### [facility] ([id number]) [address] [address] [place] [address] Lymphocytes (Bld) [#/Vol] 1.6 10*3/uL Normal 1.0-3.5 [facility] Comment on above: Performed By: #### C BCA, 79757-8, CMP, 23843-7, 2777-1, 88111- 7, PINR, 31813-4 #### [facility] ([id number]) [address], [address] [place] [address] Lymphocytes/100 WBC (Bld) 15.7 % Normal [facility] Comment on above: Performed By: #### C BCA, 11077-3, CMP, 92895-0, 2777-1, 08072- 7, PINR, 31685-3 #### [facility] ([id number]) [address], [facility] [address] [place] [address] MCH (RBC) [Entitic mass] 30.7 pg Normal 27-34 [facility] Comment on above: Performed By: #### C BCA, 17736-7, CMP, 30022-6, 2777-1, 57710- 7, PINR, 11576-3 #### [facility] ([id number]) [address], [address] [place] [address] MCHC (RBC) [Mass/Vol] 34.3 g/dL Normal 32-36 [facility] Comment on above: Performed By: #### C BCA, 90748-1, CMP, 96903-7, 2777-1, 84191- 7, PINR, 58143-1 #### [facility] ([id number]) [address], [address] [place] [address] MCV (RBC) [Entitic vol] 90 fL Normal 80-100 [facility] Comment on above: Performed By: #### C BCA, 05897-4, CMP, 20286-9, 2777-1, 10984- 7, PINR, 55449-1 #### [facility] ([id number]) [address], [address] [place] [address] Monocytes (Bld) [#/Vol] 0.4 10*3/uL Normal 0-0.9 [facility] Comment on above: Performed By: #### C BCA, 85786-3, CMP, 80846-3, 2777-1, 67148- 7, PINR, 57958-4 #### [facility] ([id number]) [address], [address] [place] [address] Monocytes/100 WBC (Bld) 4.0 % Normal [facility] Comment on above: Performed By: #### C BCA, 20723-3, CMP, 70914-9, 2777-1, 36900- 7, PINR, 68102-5 #### [facility] ([id number]) [address], [address] [place] [address] Neutrophils/100 WBC (Bld) 79.7 % Normal [facility] Comment on above: Performed By: #### C BCA, 60315-3, CMP, 34391-1, 2777-1, 97552- 7, PINR, 01481-5 #### [facility] ([id number]) [address], [address] [place] [address] Platelet mean volume (Bld) [Entitic vol] 8.0 fL Normal 7-12 [facility] Comment on above: Performed By: #### C BCA, 89313-1, CMP, 34802-3, 2777-1, 56350- 7, PINR, 01807-8 #### [facility] ([id number]) [address], [address] [place] [address] Platelets (Bld) [#/Vol] 143 10*3/uL Low 150-450 [facility] Comment on above: Performed By: #### C BCA, 01047-2, CMP, 88914-9, 2777-1, 05699- 7, PINR, 97436-7 #### [facility] ([id number]) [address], [address] [place] [address] RBC COUNT 2.41 X10E12/L Low 3.80-5.20 [facility] Comment on above: Performed By: #### C BCA, 65986-1, CMP, 34959-0, 2777-1, 95455- 7, PINR, 17472-4 #### [facility] ([id number]) [address], [address] [place] [address] WBC (Bld) [#/Vol] 10.3 10*3/uL Normal 4.0-11.0 [facility] Comment on above: Performed By: #### C BCA, 58991-4, CMP, 40053-5, 2777-1, 73351- 7, PINR, 12080-4 #### [facility] ([id number]) [address], [address] [place] [address] ABSOLUTE BASOPHIL 0.0 X10E9/L Normal 0.0-0.2 [facility] Comment on above: Performed By: #### C BCA, 40988-6, CMP, 52124-2, 2777-1, 28334- 7, PINR, 13819-6 #### [facility] ([id number]) [address], [address] [place] [address] ABSOLUTE NEUTROPHIL 11.8 X10E9/L High 1.5-6.6 [facility] Comment on above: Performed By: #### C BCA, 87736-2, CMP, 46420-8, 2777-1, 31585- 7, PINR, 08854-4 #### [facility] ([id number]) [address], [address] [place] [address] Basophils/100 WBC (Bld) 0.3 % Normal [facility] Comment on above: Performed By: #### C BCA, 79771-6, CMP, 27495-1, 2777-1, 09587- 7, PINR, 77353-1 #### [facility] ([id number]) [address], [address] [place] [address] Eosinophils (Bld) [#/Vol] 0.0 10*3/uL Normal 0.0-0.4 [facility] Comment on above: Performed By: #### C BCA, 97257-8, CMP, 11091-4, 2777-1, 16329- 7, PINR, 00313-2 #### [facility] ([id number]) [address] [address] Eosinophils/100 WBC (Bld) 0.0 % Normal [facility] Comment on above: Performed By: #### C BCA, 29373-8, CMP, 42773-8, 2777-1, 69356- 7, PINR, 04755-3 #### [facility] ([id number]) [address] [address] Erythrocyte distribution width (RBC) [Ratio] 14.3 % Normal 11.5-15.0 [facility] Comment on above: Performed By: #### C BCA, 67770-5, CMP, 52700-0, 2777-1, 07355- 7, PINR, 90876-0 #### [facility] ([id number]) [address] [address] Hematocrit (Bld) [Volume fraction] 23.9 % Low 35-47 [facility] Comment on above: Performed By: #### C BCA, 28575-6, CMP, 75420-0, 2777-1, 34807- 7, PINR, 75793-0 #### [facility] ([id number]) [address] [address] Hemoglobin (Bld) [Mass/Vol] 8.3 g/dL Low 11.7-15.5 [facility] Comment on above: Performed By: #### C BCA, 67189-1, CMP, 96980-2, 2777-1, 02141- 7, PINR, 91203-3 #### [facility] ([id number]) [address], [address] [place] [address] Lymphocytes (Bld) [#/Vol] 1.2 10*3/uL Normal 1.0-3.5 [facility] Comment on above: Performed By: #### C BCA, 47565-1, CMP, 41915-2, 2777-1, 29097- 7, PINR, 61666-3 #### [facility] ([id number]) [address], [address] [place] [address] Lymphocytes/100 WBC (Bld) 8.6 % Normal [facility] Comment on above: Performed By: #### C BCA, 20113-1, CMP, 09146-3, 2777-1, 95378- 7, PINR, 33528-9 #### [facility] ([id number]) [address], [address] [place] [address] MCH (RBC) [Entitic mass] 30.8 pg Normal 27-34 [facility] Comment on above: Performed By: #### C BCA, 83264-4, CMP, 69227-0, 2777-1, 23979- 7, PINR, 50456-2 #### [facility] ([id number]) [address], [address] [place] [address] MCHC (RBC) [Mass/Vol] 34.9 g/dL Normal 32-36 [facility] Comment on above: Performed By: #### C BCA, 63537-7, CMP, 26276-7, 2777-1, 74477- 7, PINR, 70266-0 #### [facility] ([id number]) [address], [address] [place] [address] MCV (RBC) [Entitic vol] 88 fL Normal 80-100 [facility] Comment on above: Performed By: #### C BCA, 06555-6, CMP, 11864-7, 2777-1, 00496- 7, PINR, 03998-8 #### [facility] ([id number]) [address], [address] [place] [address] Monocytes (Bld) [#/Vol] 0.5 10*3/uL Normal 0-0.9 [facility] Comment on above: Performed By: #### C BCA, 38996-2, CMP, 19834-9, 2777-1, 86879- 7, PINR, 10635-8 #### [facility] ([id number]) [address], [address] [place] [address] Monocytes/100 WBC (Bld) 3.7 % Normal [facility] Comment on above: Performed By: #### C BCA, 89410-1, CMP, 25073-0, 2777-1, 12798- 7, PINR, 03156-2 #### [facility] ([id number]) [address], [address] [place] [address] Neutrophils/100 WBC (Bld) 87.4 % Normal [facility] Comment on above: Performed By: #### C BCA, 87948-6, CMP, 27085-7, 2777-1, 37879- 7, PINR, 31091-2 #### [facility] ([id number]) [address], [address] [place] [address] Platelet mean volume (Bld) [Entitic vol] 8.3 fL Normal 7-12 [facility] Comment on above: Performed By: #### C BCA, 70268-5, CMP, 12852-1, 2777-1, 55355- 7, PINR, 42091-0 #### [facility] ([id number]) [address], [address] [place] [address] Platelets (Bld) [#/Vol] 158 10*3/uL Normal 150-450 [facility] Comment on above: Performed By: #### C BCA, 66413-3, CMP, 51236-6, 2777-1, 41795- 7, PINR, 60761-9 #### [facility] ([id number]) [address], [address] [place] [address] RBC COUNT 2.71 X10E12/L Low 3.80-5.20 [facility] Comment on above: Performed By: #### C BCA, 39409-1, CMP, 39359-9, 2777-1, 75362- 7, PINR, 68085-9 #### [facility] ([id number]) [address], [address] [place] [address] WBC (Bld) [#/Vol] 13.5 10*3/uL High 4.0-11.0 [facility] Comment on above: Performed By: #### C BCA, 00658-0, CMP, 92624-5, 2777-1, 36899- 7, PINR, 75061-2 #### [facility] ([id number]) [address], [address] [place] [address] CT ABDOMEN AND PELVIS W CONT on 10-04-2024 CT ABDOMEN AND PELVIS W CONT CT ABDOMEN AND PELVIS W CONT History: Hemorrhage following Technique: Contiguous axial images through the abdomen pelvis were obtained following the administration of intravenous contrast material. Automated exposure control was utilized. Comparison: None Findings: There is an enlarged uterus. Complex debris, fluid, and gas are seen within the uterus presumably related to recent . There is however a focal area of extravasated contrast in the fundus of the uterus consistent with acute bleeding. There is fluid seen scattered throughout the abdomen and pelvis. This fluid however shows relatively high density in Morison's pouch that most like represent blood products. There is no evidence of any hepatic, splenic, adrenal, renal, pancreatic, or gallbladder abnormalities. No abdominal or retroperitoneal masses or adenopathy are seen. Subcutaneous emphysema seen in the lower pelvis is felt be postoperative in nature. Limited images of lung bases are unremarkable. Impression: * Evidence of active bleeding in the fundus of the uterus with a large amount of complex fluid and air seen in the enlarged uterus * Scattered fluid throughout the abdomen pelvis with high density fluid seen layering versus pelvis that may represent blood products This report was called to the floor by Dr. Choudhury and discussed with Claudia (nurse) on 10/04/2024 at 12:[address] scans at this facility use dose modulation, iterative reconstruction, and/or weight based dosing when appropriate to reduce radiation dose to as low as reasonably achievable Finalized by Rigo Choudhury MD on 10/04/2024 12:[address] [facility] Calcium.ionized (Bld) [Mass/ Vol]on 10-04-2024 IONIZED CALCIUM 4.7 mg/dL Normal 4.5-5.3 [facility] Comment on above: Performed By: #### C BCA, 44829-9, CMP, 12279-2, 2777-1, 25282- 7, PINR, 70095-9 #### [facility] ([id number]) [address], [address] [place] [address] Fibrinogen Coagulation.deriv ed (PPP) [Mass/Vol]on 10-04-2024 FIBRINOGEN 311 mg/dL Normal 190-480 [facility] Comment on above: Performed By: #### C BCA, 03086-0, CMP, 52238-3, 2777-1, 82811- 7, PINR, 15501-2 #### [facility] ([id number]) [address], [address] [place] [address] HGBon 10-04-2024 Hematocrit (Bld) [Volume fraction] 23.4 % Low 35-47 [facility] Comment on above: Performed By: #### C BCA, 79332-3, CMP, 42448-0, 2777-1, 98584- 7, PINR, 74834-6 #### [facility] ([id number]) [address], [address] [place] [address] Hemoglobin (Bld) [Mass/Vol] 8.1 g/dL Low 11.7-15.5 [facility] Comment on above: Performed By: #### C BCA, 59014-4, CMP, 53206-0, 2777-1, 49794- 7, PINR, 51681-8 #### [facility] ([id number]) [address], [address] [place] [address] Lactate (P carolina) [Moles/Vol]o n 10-04-2024 LACTATE W/REFLEX 0.8 mmol/L Normal 0.4-2.0 [facility] Comment on above: Result Comment: Result did not trigger repeat Lactate, re-order if needed. Performed By: #### C BCA, 19349-0, CMP, 03204-0, 2777-1, 49403-7, PINR, 65168-4 #### [facility] ([id number]) [address] [place] [address] MAGNESIUMon 10-04-2024 Magnesium [Mass/Vol] 1.8 mg/dL Normal 1.8-2.6 [facility] Comment on above: Performed By: #### C BCA, 27644-1, CMP, 48696-2, 2776-1, 15368- 7, PINR, 67470-0 #### [facility] ([id number]) [address], [address] [place] [address] Magnesium Ionized ISE (Bld) [Moles/Vol]on 10-04-2024 Magnesium [Moles/Vol] 0.54 mmol/L Normal 0.45-0.74 [facility] Comment on above: Result Comment: NEW REFERENCE RANGE Performed By: #### C BCA, 74659-0, CMP, 80676-0, 2777-1, 75883-4, PINR, 06209-7 #### [facility] ([id number]) [address], [address] [place] [address] PHOSPHORUSon 10-04-2024 Phosphate [Mass/Vol] 3.8 mg/dL Normal 2.4-4.9 [facility] Comment on above: Performed By: #### C BCA, 84331-7, CMP, 70145-3, 2777-1, 21547- 7, PINR, 55947-1 #### [facility] ([id number]) [address], [address] [place] [address] PROTIME AND INRon 10-04-2024 INR Coag (PPP) [Relative time] 1.0 {INR} Normal 0.9-1.2 [facility] Comment on above: Performed By: #### C BCA, 30766-1, CMP, 98641-7, 2777-1, 06894- 7, PINR, 12393-2 #### [facility] ([id number]) [address], [address] [place] [address] PT Coag (PPP) [Time] 11.2 s Normal 9.8-13.2 [facility] Comment on above: Performed By: #### C BCA, 95721-9, CMP, 31210-0, 2777-1, 95206- 7, PINR, 86367-8 #### [facility] ([id number]) [address], [address] [place] [address] RAPID CARDIAC W/ NAon 20[address] Normal [facility] Comment on above: Performed By: #### C BCA, 55772-4, CMP, 59509-0, 2777-1, 24990- 7, PINR, 20680-1 #### [facility] ([id number]) [address], [address] [place] [address] BASE,DEFICIT 9.1 MMOL/L High 0.0-2.0 [facility] Comment on above: Performed By: #### C BCA, 87142-4, CMP, 38218-6, 2777-1, 12230- 7, PINR, 26935-3 #### [facility] ([id number]) [address], [address] [place] [address] Body temperature 98.6 [degF] Normal 37.0 [facility] Comment on above: Performed By: #### C BCA, 85514-4, CMP, 36319-7, 2777-1, 89923- 7, PINR, 93369-6 #### [facility] ([id number]) [address], [address] [place] [address] Glucose [Mass/Vol] 94 mg/dL Normal 65-99 [facility] Comment on above: Performed By: #### C BCA, 10417-0, CMP, 77780-3, 2777-1, 73401- 7, PINR, 36867-7 #### [facility] ([id number]) [address], [address] [place] [address] HCO3 (Bld) [Moles/Vol] 17.6 mmol/L Low 22-26 [facility] Comment on above: Performed By: #### C BCA, 08286-0, CMP, 32590-0, 2777-1, 52431- 7, PINR, 46752-5 #### [facility] ([id number]) [address], [address] [place] [address] Hematocrit (Bld) [Volume fraction] 28 % Low 35-47 [facility] Comment on above: Performed By: #### C BCA, 41565-0, CMP, 43395-0, 2777-1, 46272- 7, PINR, 12208-0 #### [facility] ([id number]) [address], [address] [place] [address] Hemoglobin (Bld) [Mass/Vol] 9.1 g/dL Low 11.7-15.5 [facility] Comment on above: Performed By: #### C BCA, 37881-6, CMP, 11732-5, 2777-1, 30852- 7, PINR, 98775-6 #### [facility] ([id number]) [address], [address] [place] [address] INSP. O2 CONC. 100 % Normal [facility] Comment on above: Performed By: #### C BCA, 25165-4, CMP, 99108-5, 2777-1, 11474- 7, PINR, 44881-2 #### [facility] ([id number]) [address], [address] [place] [address] IONIZED CALCIUM 4.4 mg/dL Low 4.5-5.3 [facility] Comment on above: Performed By: #### C BCA, 75807-1, CMP, 84189-2, 2777-1, 98426- 7, PINR, 36150-6 #### [facility] ([id number]) [address], [address] [place] [address] Oxygen (Bld) [Partial pressure] 287 mm[Hg] High 80-100 [facility] Comment on above: Performed By: #### C BCA, 93186-9, CMP, 54911-1, 2777-1, 58521- 7, PINR, 59304-7 #### [facility] ([id number]) [address], [address] [place] [address] Oxygen saturation in Blood 100.3 % Normal >90 [facility] Comment on above: Performed By: #### C BCA, 70494-3, CMP, 56488-1, 2777-1, 88937- 7, PINR, 36707-4 #### [facility] ([id number]) [address], [address] [place] [address] PCO2 37.3 MMHG Normal 35-45 [facility] Comment on above: Performed By: #### C BCA, 90862-0, CMP, 95724-8, 2777-1, 08521- 7, PINR, 67853-9 #### [facility] ([id number]) [address], [address] [place] [address] pH (Bld) 7.282 [pH] Low 7.350-7.450 [facility] Comment on above: Performed By: #### C BCA, 16227-8, CMP, 04652-9, 2777-1, 14482- 7, PINR, 51093-6 #### [facility] ([id number]) [address], [address] [place] [address] Potassium [Moles/Vol] 4.6 mmol/L Normal 3.5-5.0 [facility] Comment on above: Performed By: #### C BCA, 18012-0, CMP, 46385-6, 2777-1, 88509- 7, PINR, 61300-4 #### [facility] ([id number]) [address] [address] [address], [address] [place] [address] SAMPLE SITE CORINE Normal [facility] Comment on above: Performed By: #### C BCA, 12155-7, CMP, 78093-6, 2777-1, 63679- 7, PINR, 01428-4 #### [facility] ([id number]) [address] [facility], [address] [place] [address] SAMPLE TYPE Arterial Normal [facility] Comment on above: Performed By: #### C BCA, 44366-1, CMP, 88920-0, 2777-1, 52585- 7, PINR, 83475-3 #### [facility] ([id number]) [address], [address] [place] [address] Sodium [Moles/Vol] 132 mmol/L Low 134-146 [facility] Comment on above: Performed By: #### C BCA, 33948-0, CMP, 05429-1, 2777-1, 22972- 7, PINR, 24327-0 #### [facility] ([id number]) [address], [address] [place] [address] Surgical Pathologyon 025 Surgical Pathology Normal [facility] Comment on above: Result Comment: [facility] [address] [place], [place] [address] Surgical Pathology Consultation Patient Name:ANNA LAW:1990 (Age: 34)Gender:FTaken:10/04/2024Reported:10/12/2024Physician(s):Jv Longo M.D. ([phone])Copy To: Rec. 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 Negative ovary with corpus luteum. Report Electronically Signed Out gr10/12/2024Gene MD Torsten Interpretation [place] [address], License number: [id number]. Clinical History Intra abdominal bleeding. Gross Description 1. Received in formalin labeled demarco Law, left ovary is a 889 g supracervical hysterectomy specimen with detached unilateral ovary. The uterus is 16.1 cm from fundus to cervical resection margin, 14.8 cm from cornu to cornu, and 7.4 cm from anterior to posterior. The serosa is hunter-pink and smooth with two linear incisions containing white sutures on the anterior aspect, 8.5 cm and 8.0 cm. The cervical resection margin is inked black. The uterus is bivalved to reveal a 11.7 x 5.3 cm triangular, shaggy, red-pink endometrial cavity. Within the endometrial cavity extending up to the fundus is a 8.4 x 3.9 x 2.2 cm area of hemorrhage. Near the fundus is a 3.0 x 2.0 x 1.8 cm area of possible retained placenta. The placental tissue remains superficial and does not extend into the myometrium. The linear incisions appear superficial and the left incision corresponds with the area of hemorrhage within the endometrial cavity. The endometrium is 0.3 cm thick. The myometrium ranges from 0.7 cm to 4.6 cm and is finely trabeculated. The myometrium underlying the placenta is 1.6 cm thick. Additionally within the container is a 10 g detached left ovary, 3.9 x 3.6 x 1.8 cm. The outer surface is hunter-purple and cerebriform. The ovary is serially sectioned to reveal a corpus luteum and multiple smooth lined serous cysts, up to 0.6 cm. One of the cyst contains hemorrhagic material. Additionally within the ovary is a 0.8 cm cystic cavity with a smooth white lining, consistent with corpus albicans. The vessels surrounding the ovary are dilated. No fallopian tube is identified. Gross photographs are taken. [employer] sections are submitted as follows: A: Posterior serosal shave B: Anterior lower uterine segment with cervix margin, perpendicular C: Posterior lower uterine segment with cervix margin, perpendicular D-E: Anterior full-thickness section with placenta, bisected (green ink ellis connection point) F-G: Anterior full-thickness section with placenta, bisected (green ink ellis connection point) H: Anterior endomyometrium I: Anterior hemorrhage underlying left suture J-K: Posterior full-thickness section with placenta, bisected (green ink ellis connection point) L-M: Posterior full-thickness section with placenta, bisected (green ink ellis connection point) N: Posterior endomyometrium O: Ovary P: Dilated vessels surrounding ovary (16,ss,[id number], m8.1) ROSA MARIA/FLORENTINO axv/10/04/2024NXK Specimen(s) Received Uterus, left ovary Fee Codes(s): 1; 73268 CBC AND AUTO DIFFon 10-04-19 25 Band form neutrophils/100 WBC (Bld) 12.5 % Normal [facility] Comment on above: Performed By: #### C BCA, 20240-4, CMP, 75597-3, 2777-1, 34962- 7, PINR, 91675-0 #### [facility] ([id number]) [address], [address] [place] [address] Erythrocyte distribution width (RBC) [Ratio] 14.4 % Normal 11.5-15.0 [facility] Comment on above: Performed By: #### C BCA, 24163-5, CMP, 25770-0, 2777-1, 58112- 7, PINR, 38795-6 #### [facility] ([id number]) [address], [address] [place] [address] Hematocrit (Bld) [Volume fraction] 34.1 % Low 35-47 [facility] Comment on above: Performed By: #### C BCA, 25893-3, CMP, 66834-7, 2777-1, 75921- 7, PINR, 04593-8 #### [facility] ([id number]) [address], [address] [place] [address] Hemoglobin (Bld) [Mass/Vol] 11.8 g/dL Normal 11.7-15.5 [facility] Comment on above: Performed By: #### C BCA, 99072-3, CMP, 91167-5, 2777-1, 65949- 7, PINR, 48926-5 #### [facility] ([id number]) [address], [address] [place] [address] Lymphocytes (Bld) [#/Vol] 0.8 10*3/uL Low 1.0-3.5 [facility] Comment on above: Performed By: #### C BCA, 29816-0, CMP, 57910-1, 2777-1, 26694- 7, PINR, 89766-6 #### [facility] ([id number]) [address], [address] [place] [address] Lymphocytes/100 WBC (Bld) 4.8 % Normal [facility] Comment on above: Performed By: #### C BCA, 56257-2, CMP, 29713-2, 2777-1, 37957- 7, PINR, 42596-6 #### [facility] ([id number]) [address], [address] [place] [address] MCH (RBC) [Entitic mass] 31.0 pg Normal 27-34 [facility] Comment on above: Performed By: #### C BCA, 78358-0, CMP, 05988-1, 2777-1, 45551- 7, PINR, 96624-5 #### [facility] ([id number]) [address], [address] [place] [address] MCHC (RBC) [Mass/Vol] 34.7 g/dL Normal 32-36 [facility] Comment on above: Performed By: #### C BCA, 64658-3, CMP, 94840-3, 2777-1, 15655- 7, PINR, 81949-2 #### [facility] ([id number]) [address], [address] [place] [address] MCV (RBC) [Entitic vol] 89 fL Normal 80-100 [facility] Comment on above: Performed By: #### C BCA, 92946-9, CMP, 50339-0, 2777-1, 78354- 7, PINR, 22213-7 #### [facility] ([id number]) [address], [address] [place] [address] Neutrophils (Bld) [#/Vol] 15.1 10*3/uL High 1.5-6.6 [facility] Comment on above: Performed By: #### C BCA, 27255-9, CMP, 55521-1, 2777-1, 40393- 7, PINR, 78314-2 #### [facility] ([id number]) [address], [address] [place] [address] Platelet mean volume (Bld) [Entitic vol] 8.6 fL Normal 7-12 [facility] Comment on above: Performed By: #### C BCA, 68352-9, CMP, 49405-6, 2777-1, 73979- 7, PINR, 03807-7 #### [facility] ([id number]) [address], [address] [place] [address] Platelets (Bld) [#/Vol] 162 10*3/uL Normal 150-450 [facility] Comment on above: Performed By: #### C BCA, 29097-2, CMP, 16153-1, 2777-1, 95345- 7, PINR, 40454-9 #### [facility] ([id number]) [address], [address] [place] [address] POLYCHROMASIA 1+ Abnormal NONE [facility] Comment on above: Performed By: #### C BCA, 89218-4, CMP, 28112-3, 2777-1, 18225- 7, PINR, 86061-2 #### [facility] ([id number]) [address], [address] [place] [address] RBC COUNT 3.82 X10E12/L Normal 3.80-5.20 [facility] Comment on above: Performed By: #### C BCA, 28874-4, CMP, 19978-6, 2777-1, 60803- 7, PINR, 61075-4 #### [facility] ([id number]) [address], [address] [place] [address] SEG NEUTROPHIL 82.7 % Normal [facility] Comment on above: Performed By: #### C BCA, 91146-8, CMP, 36041-9, 2777-1, 17159- 7, PINR, 26919-6 #### [facility] ([id number]) [address], [address] [place] [address] WBC (Bld) [#/Vol] 15.9 10*3/uL High 4.0-11.0 [facility] Comment on above: Performed By: #### C BCA, 79728-3, CMP, 50909-2, 2777-1, 16473- 7, PINR, 34226-5 #### [facility] ([id number]) [address], [address] [place] [address] COMPREHENSIVE METABOLIC PANE Gil 10-03-2024 Albumin [Mass/Vol] 2.4 g/dL Low 3.2-5.3 [facility] Comment on above: Performed By: #### C BCA, 04323-2, CMP, 02346-5, 2777-1, 12371- 7, PINR, 00339-4 #### [facility] ([id number]) [address], [address] [place] [address] ALP [Catalytic activity/Vol] 94 U/L Normal 39-130 [facility] Comment on above: Performed By: #### C BCA, 07874-3, CMP, 24970-9, 2777-1, 94496- 7, PINR, 74572-2 #### [facility] ([id number]) [address], [address] [place] [address] ALT [Catalytic activity/Vol] 8 U/L Normal 0-31 [facility] Comment on above: Performed By: #### C BCA, 63406-4, CMP, 66907-7, 2777-1, 29230- 7, PINR, 81706-7 #### [facility] ([id number]) [address], [address] [place] [address] Anion gap [Moles/Vol] 6 mmol/L Normal 5-15 [facility] Comment on above: Performed By: #### C BCA, 73637-2, CMP, 18926-6, 2777-1, 00545- 7, PINR, 66681-4 #### [facility] ([id number]) [address], [address] [place] [address] AST [Catalytic activity/Vol] 19 U/L Normal 0-41 [facility] Comment on above: Performed By: #### C BCA, 27241-6, CMP, 54960-8, 2777-1, 59814- 7, PINR, 35770-3 #### [facility] ([id number]) [address] [place] [address] Bilirubin [Mass/Vol] 1.0 mg/dL Normal 0.3-1.2 [facility] Comment on above: Performed By: #### C BCA, 76409-4, CMP, 04846-1, 2777-1, 40452- 7, PINR, 03820-6 #### [facility] ([id number]) [address], [address] [place] [address] Calcium [Mass/Vol] 7.3 mg/dL Low 8.5-10.5 [facility] Comment on above: Performed By: #### C BCA, 74970-0, CMP, 94017-3, 2777-1, 20936- 7, PINR, 58590-1 #### [facility] ([id number]) [address], [address] [place] [address] Chloride [Moles/Vol] 112 mmol/L High 98-109 [facility] Comment on above: Performed By: #### C BCA, 88809-4, CMP, 58346-0, 2777-1, 68458- 7, PINR, 75483-3 #### [facility] ([id number]) [address], [address] [place] [address] CO2 [Moles/Vol] 15 mmol/L Low 22-32 [facility] Comment on above: Performed By: #### C BCA, 65978-3, CMP, 99113-2, 2777-1, 03144- 7, PINR, 12267-0 #### [facility] ([id number]) [address], [address] [place] [address] Creatinine [Mass/Vol] 0.63 mg/dL Normal 0.40-1.00 [facility] Comment on above: Result Comment: METH OD TRACEABLE TO IDMS STANDARD Performed By: #### C BCA, 52735-7, CMP, 27077-4, 2777-1, 51320-1, PINR, 55335-7 #### [facility] ([id number]) [address], [address] [place] [address] eGFR (CKD-EPI) NON-RACE DEPENDENT >90 Normal >59 [facility] Comment on above: Result Comment: Reported eGFR is based on the CKD-EPI 2020 equation that does not use a race coefficient. Performed By: #### C BCA, 67309-3, CMP, 89540-2, 2777-1, 71559-3, PINR, 73164-1 #### [facility] ([id number]) [address], [address] [place] [address] Glucose [Mass/Vol] 100 mg/dL High 65-99 [facility] Comment on above: Performed By: #### C BCA, 25602-0, CMP, 80082-1, 2777-1, 05197- 7, PINR, 58667-8 #### [facility] ([id number]) [address], [address] [place] [address] Potassium [Moles/Vol] 5.8 mmol/L High 3.5-5.0 [facility] Comment on above: Performed By: #### C BCA, 19161-9, CMP, 13655-8, 2777-1, 13698- 7, PINR, 82549-5 #### [facility] ([id number]) [address], [address] [place] [address] Protein [Mass/Vol] 4.4 g/dL Low 6.0-8.0 [facility] Comment on above: Performed By: #### C BCA, 49730-2, CMP, 46333-5, 2777-1, 56089- 7, PINR, 07224-8 #### [facility] ([id number]) [address], [address] [place] [address] Sodium [Moles/Vol] 133 mmol/L Low 134-146 [facility] Comment on above: Performed By: #### C BCA, 61079-8, CMP, 23155-4, 2777-1, 72169- 7, PINR, 63399-1 #### [facility] ([id number]) [address], [address] [place] [address] Urea nitrogen [Mass/Vol] 9 mg/dL Normal 5-23 [facility] Comment on above: Performed By: #### C BCA, 45680-0, CMP, 87057-2, 2777-1, 19209- 7, PINR, 05814-9 #### [facility] ([id number]) [address], [address] [place] [address] Calcium.ionized (Bld) [Mass/ Vol]on 10-03-2024 IONIZED CALCIUM 4.6 mg/dL Normal 4.5-5.3 [facility] Comment on above: Performed By: #### C BCA, 57332-2, CMP, 14273-6, 2777-1, 28962- 7, PINR, 83713-1 #### [facility] ([id number]) [address], [address] [place] [address] Performed By: #### 3 8230-9 #### [facility] ([id number]) [address], [address] [place] [address] Fibrinogen Coagulation.deriv ed (PPP) [Mass/Vol]on 10-03-2024 FIBRINOGEN 275 mg/dL Normal 190-480 [facility] Comment on above: Performed By: #### C BCA, 33642-6, CMP, 51050-5, 2777-1, 33964- 7, PINR, 86112-3 #### [facility] ([id number]) [address], [address] [place] [address] Glucose Glucometer (BldC) [M ass/Vol]on 10-03-2024 Glucose [Mass/Vol] 109 mg/dL High 65-99 [facility] HGBon 10-03-2024 Hematocrit (Bld) [Volume fraction] 24.1 % Low 35-47 [facility] Comment on above: Performed By: #### C BCA, 69360-6, CMP, 94409-4, 2777-1, 12519- 7, PINR, 12797-6 #### [facility] ([id number]) [address], [address] [place] [address] Hemoglobin (Bld) [Mass/Vol] 8.3 g/dL Low 11.7-15.5 [facility] Comment on above: Performed By: #### C BCA, 85914-9, CMP, 58687-5, 2777-1, 89374- 7, PINR, 12674-0 #### [facility] ([id number]) [address], [address] [place] [address] Lactate (P carolina) [Moles/Vol]o n 10-03-2024 LACTATE W/REFLEX 1.0 mmol/L Normal 0.4-2.0 [facility] Comment on above: Result Comment: Result did not trigger repeat Lactate, re-order if needed. Performed By: #### C BCA, 29113-3, CMP, 93741-0, 2777-1, 28476-1, PINR, 11968-8 #### [facility] ([id number]) [address], [address] [place] [address] MAGNESIUMon 10-03-2024 Magnesium [Mass/Vol] 1.3 mg/dL Low 1.8-2.6 [facility] Comment on above: Performed By: #### C BCA, 79674-7, CMP, 96834-0, 2777-1, 57479- 7, PINR, 39569-0 #### [facility] ([id number]) [address], [address] [place] [address] PHOSPHORUSon 10-03-2024 Phosphate [Mass/Vol] 3.4 mg/dL Normal 2.4-4.9 [facility] Comment on above: Performed By: #### C BCA, 18423-9, CMP, 67572-0, 2777-1, 01038- 7, PINR, 02292-3 #### [facility] ([id number]) [address], [address] [place] [address] POTASSIUMon 10-03-2024 Potassium [Moles/Vol] 4.7 mmol/L Normal 3.5-5.0 [facility] Comment on above: Performed By: #### C BCA, 44734-6, CMP, 41671-6, 2777-1, 92643- 7, PINR, 33994-7 #### [facility] ([id number]) [address], [address] [place] [address] PROTIME AND INRon 10-03-2024 INR Coag (PPP) [Relative time] 1.0 {INR} Normal 0.9-1.2 [facility] Comment on above: Performed By: #### C BCA, 11583-2, CMP, 33397-4, 2777-1, 66928- 7, PINR, 13341-6 #### [facility] ([id number]) [address], [address] [place] [address] PT Coag (PPP) [Time] 11.0 s Normal 9.8-13.2 [facility] Comment on above: Performed By: #### C BCA, 43196-3, CMP, 08918-7, 2777-1, 48546- 7, PINR, 11838-4 #### [facility] ([id number]) [address], [address] [place] [address] aPTT Coag (PPP) [Time]on aPTT Coag (Bld) [Time] 24 s Low 26-37 [facility] Comment on above: Performed By: #### C BCA, 83614-7, CMP, 08046-3, 2777-1, 34152- 7, PINR, 98952-6 #### [facility] ([id number]) [address], [address] [place] [address] Urinalysis macro (dipstick) panel (U)on 09-26-2024 Bilirubin, UA Negative Negative - 4(70) +++ mg/dL [facility] Blood, UA Positive Negative - 50 Yang/mcL [facility] Comment on above: Trace - Intact Clarity, UA Clear [facility] Color, UA Yellow [facility] Glucose, UA Negative Negative - 1999(110) ++++ mg/dL [facility] Interpretation and review of laboratory results Abnormal [facility] Ketones, UA Negative Negative - 160(16) ++++ mg/dL [facility] Leukocytes, UA Trace Negative - 500+++ Derik/mcL [facility] Nitrite, UA Negative Negative - Positive [facility] pH, UA 6.5 5 - 9 [facility] Protein, UA Negative Negative - 1999(20) ++++ mg/dL [facility] Spec Grav, UA 1.015 1 - 1.03 [facility] Urobilinogen, UA 0.2 0.2 - 12 mg/dL [facility] US OB BPP W NON-STRESS on 09-25-2024 [place] [address] Ultrasound Report Signed Patient: ANNA LAW MR#: [id number] : 1990 Acct:[id number] Age/Sex: 34 / F ADM Date: 09/25/24 Loc: US Attending Dr: Lee Rand D.O. Ordering Physician: Lee Rand D.O. Date of Service: 09/25/24 Procedure(s): US OB BPP w non-stress Accession Number(s): [id number] cc: Lee Rand D.O.; Physician,Non-Staff M.[facility] The [address] [address] Patient Name: ANNA LAW MRN: [facility]:[id number] date: 1990 Sex: F Assigned Patient Location: [facility] Current Patient Location: Accession/Order Number: [id number] Exam Date: 09/25/2024 22:21 Report Date: 09/25/2024 22:23 At the request of: LEE RAND DO Procedure: US OB BPP w non-stress Biophysical profile. Reason for exam: Diet-controlled gestational diabetes. COMPARISON: BPP 09/18/2024 Technique: Transabdominal imaging of the gravid uterus was obtained. FINDINGS: Physiatrist reports the BPP is 8 out of 8. JAS is normal at 12.8 cm. heart rate 127 bpm. US/US OB BPP w non-stress IMPRESSION: BPP 8 out of 8. Impression dictated by: Pete Engle Jr., D.O.09/25/2024 10:23 PM Dictation Location: [place] [address] Electronically authenticated by: [id number] Y Date: 09/25/2024 22:23 Dictated By: Pete Engle M.D. Signed By: 09/25/242224 DD/ 22 TD/TT: Director Strategic Planning: [facility] Radiology, Radiologist, MD - 09/25/2024 [place] [address] Ultrasound Report Signed Patient: ANNA LAW MR#: [id number] : 1990 Acct:[id number] Age/Sex: 34 / F ADM Date: 09/25/24 Loc: US Attending Dr: Lee Rand D.O. Ordering Physician: Lee Rand D.O. Date of Service: 09/25/24 Procedure(s): US OB BPP w non-stress Accession Number(s): [id number] cc: Lee Rand D.O.; Physician,Non-Staff [facility] [place] [id number] Patient Name: ANNA LAW MRN: [facility]:[id number] date: 1990 Sex: F Assigned Patient Location: [facility] Current Patient Location: Accession/Order Number: [id number] Exam Date: 09/25/2024 22:21 Report Date: 09/25/2024 22:23 At the request of: LEE RAND DO Procedure: US OB BPP w non-stress Biophysical profile. Reason for exam: Diet-controlled gestational diabetes. COMPARISON: BPP 09/18/2024 Technique: Transabdominal imaging of the gravid uterus was obtained. FINDINGS: Physiatrist reports the BPP is 8 out of 8. JAS is normal at 12.8 cm. heart rate 127 bpm. US/US OB BPP w non-stress IMPRESSION: BPP 8 out of 8. Impression dictated by: Pete Engle Jr., D.O.09/25/2024 10:23 PM Dictation Location: [facility] Electronically authenticated by: [id number] Y Date: 09/25/2024 22:23 Dictated By: Pete Engle M.D. Signed By: 09/25/242224 DD/ 22 TD/TT: Director Strategic Planning: [facility] Radiology Study observation (narrative) [facility] US OB BPP W NON-STRESS Ordered By: Radiologist Radiology on 09-25-2024 [facility] Work Phone: US OB BPP W NON-STRESS on 09-18-2024 [place] [address] Ultrasound Report Signed Patient: ANNA LAW MR#: [id number] : 1990 Acct:[id number] Age/Sex: 34 / F ADM Date: 09/18/24 Loc: US Attending Dr: Lee Rand D.O. Ordering Physician: Lee Rand D.O. Date of Service: 09/18/24 Procedure(s): US OB BPP w non-stress Accession Number(s): [id number] cc: Lee Rand D.O.; Physician,Non-Staff MJuan Alberto [place] [id number] Patient Name: ANNA LAW MRN: [id number]:[id number] date: 1990 Sex: F Assigned Patient Location: US Current Patient Location: Accession/Order Number: [id number] Exam Date: 09/18/2024 22:52 Report Date: 09/18/2024 22:56 At the request of: LEE RAND DO Procedure: US OB BPP w non-stress Biophysical profile. Reason for exam: Diet-controlled gestational diabetes. COMPARISON: BPP 09/12/2024. Technique: Transabdominal imaging of the gravid uterus was obtained. FINDINGS: Physiatrist reports the BPP is 8 out of 8. JAS is normal at 14.3 cm. heart rate 135 bpm. US/US OB BPP w non-stress IMPRESSION: BPP 8 out of 8. Impression dictated by: Pete Engle Jr., D.O.09/18/2024 10:56 PM Dictation Location: [place] [address] Electronically authenticated by: [id number] Y Date: 09/18/2024 22:56 Dictated By: Pete Engle M.D. Signed By: 09/18/242257 DD/ 55 TD/TT: Director Strategic Planning: [facility] Radiology, Radiologist, MD - 09/18/2024 [place] [address] Ultrasound Report Signed Patient: ANNA LAW MR#: [id number] : 1990 Acct:[id number] Age/Sex: 34 / F ADM Date: 09/18/24 Loc: US Attending Dr: Lee Rand D.O. Ordering Physician: Lee Rand D.O. Date of Service: 09/18/24 Procedure(s): US OB BPP w non-stress Accession Number(s): [id number] cc: Lee Rand D.O.; Physician,Non-Staff [facility] [place] [id number] Patient Name: ANNA LAW MRN: [facility]:[id number] date: 1990 Sex: F Assigned Patient Location: US Current Patient Location: Accession/Order Number: [id number] Exam Date: 09/18/2024 22:52 Report Date: 09/18/2024 22:56 At the request of: LEE RAND DO Procedure: US OB BPP w non-stress Biophysical profile. Reason for exam: Diet-controlled gestational diabetes. COMPARISON: BPP 09/12/2024. Technique: Transabdominal imaging of the gravid uterus was obtained. FINDINGS: Physiatrist reports the BPP is 8 out of 8. JAS is normal at 14.3 cm. heart rate 135 bpm. US/US OB BPP w non-stress IMPRESSION: BPP 8 out of 8. Impression dictated by: Pete Engle Jr., D.O.09/18/2024 10:56 PM Dictation Location: [place] [address] Electronically authenticated by: [id number] Y Date: 09/18/2024 22:56 Dictated By: Pete Engle M.D. Signed By: 09/18/242257 DD/ 55 TD/TT: Director Strategic Planning: [facility] Radiology Study observation (narrative) [facility] US OB BPP W NON-STRESS Ordered By: Radiologist Radiology on 09-18-2024 [facility] Work Phone: US OB BPP W NON-STRESS on 09-12-2024 [place] [address] Ultrasound Report Signed Patient: ANNA LAW MR#: [id number] : 1990 Acct:[id number] Age/Sex: 34 / F ADM Date: 09/11/24 Loc: US Attending Dr: Lee Rand D.O. Ordering Physician: Lee Rand D.O. Date of Service: 09/11/24 Procedure(s): US OB BPP w non-stress Accession Number(s): [id number] cc: Lee Rand D.O.; Physician,Non-Staff MJuan Alberto The [place] [id number] Patient Name: ANNA LAW MRN: [facility]:[id number] date: 1990 Sex: F Assigned Patient Location: [facility] Current Patient Location: Accession/Order Number: [id number] Exam Date: 09/12/2024 09:01 Report Date: 09/12/2024 [...] 31 weeks 3 days. The heart rate [id number] beats per minute. FINDINGS: TONE: 1 or [...] Tere Munoz M.D.09/12/2024 9:04 AM Dictation Location: [employer] Electronically authenticated by: [id number] Y Date: 09/12/2024 09:04 Dictated By: Tere Munoz M.D. Signed By: 09/12/24905 DD/ 3 TD/TT: Director Strategic Planning: [facility] Radiology, Radiologist, MD - 09/12/2024 [place] [address] Ultrasound Report Signed Patient: ANNA LAW MR#: [id number] : 1990 Acct:[id number] Age/Sex: 34 / F ADM Date: 09/11/24 Loc: US Attending Dr: Lee Rand D.O. Ordering Physician: Lee Rand D.O. Date of Service: 09/11/24 Procedure(s): US OB BPP w non-stress Accession Number(s): [id number] cc: Lee Rand D.O.; Physician,Non-Staff [facility] [place] [id number] Patient Name: ANNA LAW MRN: [facility]:[id number] date: 1990 Sex: F Assigned Patient Location: [facility] Current Patient Location: Accession/Order Number: [id number] Exam Date: 09/12/2024 09:01 Report Date: 09/12/2024 [...] 31 weeks 3 days. The heart rate hethdzbg432 beats per minute. FINDINGS: TONE: 1 or [...] M.D.09/12/2024 9:04 AM Dictation Location: [place] [address] Electronically authenticated by: [id number] Y Date: 09/12/2024 09:04 Dictated By: Tere Munoz M.D. Signed By: 09/12/24905 DD/ 3 TD/TT: Director Strategic Planning: [facility] Radiology Study observation (narrative) [facility] OB BPP W NON-STRESS Ordered By: Radiologist Radiology on 09-12-2024 [facility] Work Phone: Urinalysis macro (dipstick) panel (U)on 09-12-2024 Bilirubin, UA Negative Negative - 4(70) +++ mg/dL [facility] Blood, UA Negative Negative - 50 Yang/mcL [facility] Clarity, UA Clear [facility] Color, UA Yellow [facility] Glucose, UA Negative Negative - 1999(110) ++++ mg/dL [facility] Interpretation and review of laboratory results Abnormal [facility] Ketones, UA Positive Negative - 160(16) ++++ mg/dL [facility] Comment on above: trace Leukocytes, UA Negative Negative - 500+++ Derik/mcL [facility] Nitrite, UA Negative Negative - Positive [facility] pH, UA 7 5 - 9 [facility] Protein, UA Trace Negative - 1999(20) ++++ mg/dL [facility] Spec Grav, UA 1.02 1 - 1.03 [facility] Urobilinogen, UA 0.2 0.2 - 12 mg/dL [facility] US OB BPP W NON-STRESS on 09-05-2024 [place] [address] Ultrasound Report Signed Patient: ANNA LAW MR#: [id number] : 1990 Acct:[id number] Age/Sex: 34 / F ADM Date: 09/04/24 Loc: US Attending Dr: Lee Rand D.O. Ordering Physician: Lee Rand D.O. Date of Service: 09/04/24 Procedure(s): US OB BPP w non-stress Accession Number(s): [id number] cc: Lee Rand D.O.; Physician,Non-Staff MJuan Alberto The [address] [address] Patient Name: ANNA LAW MRN: [id number]:[id number] date: 1990 Sex: F Assigned Patient Location: [facility] Current Patient Location: Accession/Order Number: [id number] Exam Date: 09/04/2024 18:52 Report Date: 09/05/2024 [...] Baumann M.D. Signed By: 09/05/2455 DD/ TD/TT: Director Strategic Planning: [facility] Radiology, Radiologist, MD - 09/05/2024 [place] [address] Ultrasound Report Signed Patient: ANNA LAW MR#: [id number] : 1990 Acct:[id number] Age/Sex: 34 / F ADM Date: 09/04/24 Loc: US Attending Dr: Lee Rand D.O. Ordering Physician: Lee Rand D.O. Date of Service: 09/04/24 Procedure(s): US OB BPP w non-stress Accession Number(s): [id number] cc: Lee Rand D.O.; Physician,Non-Staff [facility] The [place] [address] Patient Name: ANNA LAW MRN: [facility]:[id number] date: 1990 Sex: F Assigned Patient Location: [facility] Current Patient Location: Accession/Order Number: [id number] Exam Date: 09/04/2024 18:52 Report Date: 09/05/2024 [...] M.D. Signed By: 09/05/24554 DD/ 2 TD/TT: Director Strategic Planning: [facility] Radiology Study observation (narrative) [facility] US OB BPP W NON-STRESS Ordered By: Radiologist Radiology on 09-05-2024 [facility] Work Phone: Urinalysis macro (dipstick) panel (U)on 08-29-2024 Bilirubin, UA Negative Negative - 4(70) +++ mg/dL [facility] Blood, UA Positive Negative - 50 Yang/mcL [facility] Comment on above: trace-intact Clarity, UA Clear [facility] Color, UA Yellow [facility] Glucose, UA Negative Negative - 2000(110) ++++ mg/dL [facility] Interpretation and review of laboratory results Abnormal [facility] Ketones, UA Positive Negative - 160(16) ++++ mg/dL [facility] Comment on above: 40 Leukocytes, UA Trace Negative - 500+++ Derik/mcL [facility] Nitrite, UA Negative Negative - Positive [facility] pH, UA 5.5 5 - 9 [facility] Protein, UA Trace Negative - 2000(20) ++++ mg/dL [facility] Spec Grav, UA 1.025 1 - 1.03 [facility] Urobilinogen, UA 1.0 0.2 - 12 mg/dL [facility] GLUCOSE TOLERANCE 3 HOURon 0 07-28-2024 GLUCOSE TOLERANCE 3 HOUR High mg/dL [facility] Comment on above: GLU FAST 87 (<95) Co l: 07/28/24 0638 GLU 1HR 199H (<180) Col: 07/28/24 0739 GLU 2HR 173H (<155) Col: 07/28/24 0839 GLU 3HR 94 (<140) Col: 07/28/24 0939 Interpretation and review of laboratory results Abnormal [facility] GLUCOSE 1 HOURon 07-21-2024 Glucose [Mass/Vol] 154 mg/dL High NINF - 13 0 mg/dL [facility] Interpretation and review of laboratory results Abnormal [facility] Urinalysis macro (dipstick) panel (U)on 07-12-2024 Bilirubin, UA Negative Negative - 4(70) +++ mg/dL [facility] Blood, UA Negative Negative - 50 Yang/mcL [facility] Clarity, UA Clear [facility] Color, UA Yellow [facility] Glucose, UA Negative Negative - 2000(110) ++++ mg/dL [facility] Interpretation and review of laboratory results Normal [facility] Ketones, UA Negative Negative - 160(16) ++++ mg/dL [facility] Leukocytes, UA Negative Negative - 500+++ Derik/mcL [facility] Nitrite, UA Negative Negative - Positive [facility] pH, UA 7 5 - 9 [facility] Protein, UA Negative Negative - 1999(20) ++++ mg/dL [facility] Spec Grav, UA 1.02 1 - 1.03 [facility] Urobilinogen, UA 1.0 0.2 - 12 mg/dL [facility] AFP, SERUM, OPEN SPINA BIFID Aon 07-04-2024 AFP MOM 1.60 . [facility] AFP VALUE 91.9 ng/mL . [facility] COMMENT: Comment . [facility] Comment on above: Sonia Sullivan , Ph.D., [facility] Director References: Available Upon Request. Multiples Of Median Cutoffs For AFP Elevations Bhandari 2.5 Black 2.8 IDD 2.0 Twins 4.5 Abbreviation Definitions IDD - Insulin Dep Diabetes OSBR - Open Spina Bifida Risk For further inquiries contact [employer] at [phone]. This test was developed and its performance characteristics determined by [employer]. It has not been cleared or approved by the Food and Drug Administration. Performed at: [facility] [address] [place], [place] [id number] Business Librarian: Francis Boyd [facility], Phone: [phone] GEST. AGE ON COLLECTION DATE 21.0 . weeks [facility] GESTAT. AGE BASED ON LMP . [facility] Comment on above: Recalculations are n ot recommended when gestational dating by LMP and ultrasound are within 10 days. INSULIN DEP DIABETES No . [facility] INTERPRETATION Comment . [facility] Comment on above: Interpretation: Scre en [...] Customer Services to discuss available options. The [employer] recommends amniocentesis be offered to women age 35 and older. [age] [facility] MULTIPLE GESTATION No . [facility] OSBR RISK 1 IN 2100 . [facility] RACE . [facility] RESULTS Report . [facility] TEST RESULTS: Negative . [facility] WEIGHT 177 . lbs [facility] N LMP [id number] 2 18 N 1 Y 177 N N N White/ [facility] RECURRENT VAGINITIS (HTRX)on 06-13-2024 ATOPOBIUM VAGINAE 30.301 Abnormal [facility] ATOPOBIUM VAGINAE Detected Abnormal [facility] BVAB 2,3 (BACTERIAL VAGINOSIS ASSOCIATED BACTERIA 2, 3); MOBILUNCUS SPP 0 [facility] BVAB 2,3 (BACTERIAL VAGINOSIS ASSOCIATED BACTERIA 2, 3); MOBILUNCUS SPP Not detected [facility] KAITLYNN ALBICANS, PARAPSILOSIS, TROPICALIS 0 [facility] KAITLYNN ALBICANS, PARAPSILOSIS, TROPICALIS Not detected [facility] KAITLYNN GLABRATA 0 [facility] KAITLYNN GLABRATA Not detected [facility] KAITLYNN KRUSEI 0 [facility] KAITLYNN KRUSEI Not detected [facility] CHLAMYDIA TRACHOMATIS 0 [facility] CHLAMYDIA TRACHOMATIS Not detected [facility] GARDNERELLA VAGINALIS 21.1 Abnormal [facility] GARDNERELLA VAGINALIS Detected Abnormal [facility] Interpretation and review of laboratory results Abnormal [facility] MEGASPHAERA (TYPES 1, 2) 0 [facility] MEGASPHAERA (TYPES 1, 2) Not detected [facility] MYCOPLASMA GENITALIUM 0 [facility] MYCOPLASMA GENITALIUM Not detected [facility] NEISSERIA GONORRHOEAE 0 [facility] NEISSERIA GONORRHOEAE Not detected [facility] TRICHOMONAS VAGINALIS 0 [facility] TRICHOMONAS VAGINALIS Not detected [facility] Urinalysis macro (dipstick) panel (U)on 06-11-2024 Bilirubin, UA Negative Negative - 4(70) +++ mg/dL [facility] Blood, UA Negative Negative - 50 Yang/mcL [facility] Clarity, UA Clear [facility] Color, UA Yellow [facility] Glucose, UA Negative Negative - 1999(110) ++++ mg/dL [facility] Interpretation and review of laboratory results Normal [facility] Ketones, UA Negative Negative - 160(16) ++++ mg/dL [facility] Leukocytes, UA Negative Negative - 500+++ Derik/mcL [facility] Nitrite, UA Negative Negative - Positive [facility] pH, UA 5.5 5 - 9 [facility] Protein, UA Negative Negative - 1999(20) ++++ mg/dL [facility] Spec Grav, UA 1.02 1 - 1.03 [facility] Urobilinogen, UA 1.0 0.2 - 12 mg/dL [facility] Urinalysis macro (dipstick) panel (U)on 05-08-2024 Bilirubin, UA Negative Negative - 4(70) +++ mg/dL [facility] Blood, UA Positive Negative - 50 Yang/mcL [facility] Comment on above: trace-intact Clarity, UA Clear [facility] Color, UA Yellow [facility] Glucose, UA Negative Negative - 1999(110) ++++ mg/dL [facility] Interpretation and review of laboratory results Abnormal [facility] Ketones, UA Negative Negative - 160(16) ++++ mg/dL [facility] Leukocytes, UA Negative Negative - 500+++ Derik/mcL [facility] Nitrite, UA Negative Negative - Positive [facility] pH, UA 6 5 - 9 [facility] Protein, UA Negative Negative - 1999(20) ++++ mg/dL [facility] Spec Grav, UA 1.025 1 - 1.03 [facility] Urobilinogen, UA 0.2 0.2 - 12 mg/dL [facility] ALL CBC WITH AUTO DIFFon BASOPHILS ABSOLUTE AUTO 0.0 [facility] Basophils/100 WBC (Bld) 0.4 % 0.2 - 2.0 % [facility] Eosinophils/100 WBC (Bld) 0.9 % 0.9 - 7.0 % [facility] Erythrocyte distribution width (RBC) [Ratio] 11.9 % 11.0 - 15.0 % [facility] Hematocrit (Bld) [Volume fraction] 37.1 % 36.0 - 48.0 % [facility] Hemoglobin (Bld) [Mass/Vol] 12.6 g/dL 12.0 - 16.0 g/dL [facility] IMMATURE GRANULOCYTES ABS AUTO 0.03 [facility] Immature granulocytes/100 WBC (Bld) 0.4 % 0.0 - 0.5 % [facility] Interpretation and review of laboratory results Abnormal [facility] LYMPHOCYTES ABSOLUTE AUTO 1.7 [facility] Lymphocytes/100 WBC (Bld) 21.2 % 20.5 - 60.0 % [facility] MCH (RBC) [Entitic mass] 31.7 pg 26.7 - 34.0 pg [facility] MCHC (RBC) [Mass/Vol] 34.0 g/dL 29.9 - 35.2 g/dL [facility] MCV (RBC) [Entitic vol] 93.5 fL 81.0 - 99.0 fL [facility] MONOCYTES ABSOLUTE AUTO 0.6 [facility] Monocytes/100 WBC (Bld) 6.8 % 1.7 - 12.0 % [facility] NEUTROPHILS ABSOLUTE AUTO 5.7 [facility] Neutrophils/100 WBC (Bld) 70.3 % 43.0 - 75.0 % [facility] Platelet mean volume (Bld) [Entitic vol] 9.8 fL 9.5 - 13.[address] [facility] [facility] EO # 0.1 [facility] PLT 219 [facility] RBC 3.[address] [facility] WBC 8.1 [facility] HCG ( test) Ql (U)o n 04-05-2024 Interpretation and review of laboratory results Abnormal [facility] Preg Test, Ur Positive [facility] Urinalysis macro (dipstick) panel (U)on 04-05-2024 Bilirubin, UA Negative Negative - 4(70) +++ mg/dL [facility] Blood, UA Positive Negative - 50 Yang/mcL [facility] Comment on above: trace intact Clarity, UA Clear [facility] Color, UA Yellow [facility] Glucose, UA Negative Negative - 2000(110) ++++ mg/dL [facility] Interpretation and review of laboratory results Abnormal [facility] Ketones, UA Negative Negative - 160(16) ++++ mg/dL [facility] Leukocytes, UA Trace Negative - 500+++ Derik/mcL [facility] Nitrite, UA Negative Negative - Positive [facility] pH, UA 6.5 5 - 9 [facility] Protein, UA Negative Negative - 2000(20) ++++ mg/dL [facility] Spec Grav, UA 1.015 1 - 1.03 [facility] Urobilinogen, UA 0.2 0.2 - 12 mg/dL [facility] CBC AUTO DIFFon 06-05-2022 BASO # 0.0 103/ul Normal 0.0-0.1 [facility] Comment on above: Performed By: #### C BC #### [facility] [address] [place] [address] Dr. Sandi Michelle Basophils/100 WBC (Bld) 0.2 % Normal 0.2-2.0 [facility] Comment on above: Performed By: #### C BC #### [facility] [address] [place] [address] Dr. Sandi Michelle EO # 0.0 103/ul Normal 0.0-0.7 [facility] Comment on above: Performed By: #### C BC #### [facility] [address] [place] [address] Dr. Sandi Michelle Eosinophils/100 WBC (Bld) 0.2 % Critically low 0.9-7.0 [facility] Comment on above: Performed By: #### C BC #### [facility] [address] [place] [address] Dr. Sandi Michelle Erythrocyte distribution width (RBC) [Ratio] 14.3 % Normal 11.0-15.0 [facility] Comment on above: Performed By: #### C BC #### [facility] [address] [place] [address] Dr. Sandi Michelle Hematocrit (Bld) [Volume fraction] 27.3 % Critically low 36.0-48.0 [facility] Comment on above: Performed By: #### C BC #### [facility] [address] [place] [address] Dr. Sandi Michelle Hemoglobin (Bld) [Mass/Vol] 9.3 g/dL Critically low 12.0-16.0 [facility] Comment on above: Result Comment: DELI VERY Performed By: #### C BC #### [facility] [address] [place] [address] Dr. Sandi Michelle IG # 0.14 10e3/ul Critically high 0.00-0.03 [facility] Comment on above: Performed By: #### C BC #### [facility] [address] [place] [address] Dr. Sandi Michelle IG % 1.1 % Critically high 0.0-0.5 [facility] Comment on above: Performed By: #### C BC #### [facility] [address] [place] [address] Dr. Sandi Michelle LYMPH # 1.6 103/ul Normal 1.2-3.8 [facility] Comment on above: Performed By: #### C BC #### [facility] [address] [place] [address] Dr. Sandi Michelle Lymphocytes/100 WBC (Bld) 12.1 % Critically low 20.5-60.0 [facility] Comment on above: Performed By: #### C BC #### [facility] [address] [place] [address] Dr. Sandi Michelle MANUAL DIFF REQ NO Normal [facility] Comment on above: Performed By: #### C BC #### [facility] [address] [place] [address] Dr. Sandi Michelle MCH (RBC) [Entitic mass] 31.8 pg Normal 26.7-34.0 [facility] Comment on above: Performed By: #### C BC #### [facility] [address] [place] [address] Dr. Sandi Michelle MCHC (RBC) [Mass/Vol] 34.1 g/dL Normal 29.9-35.2 [facility] Comment on above: Performed By: #### C BC #### [facility] [address] [place] [address] Dr. Sandi Michelle MCV (RBC) [Entitic vol] 93.5 fL Normal 81.0-99.0 [facility] Comment on above: Performed By: #### C BC #### [facility] [address] [place] [address] Dr. Sandi Michelle MONO # 0.9 103/ul Critically high 0.3-0.8 [facility] Comment on above: Performed By: #### C BC #### [facility] [address] [place] [address] Dr. Sandi Michelle Monocytes/100 WBC (Bld) 6.8 % Normal 1.7-12.0 [facility] Comment on above: Performed By: #### C BC #### [facility] [address] [place] [address] Dr. Sandi Michelle NEUT # 10.3 103/ul Critically high 1.4-6.5 [facility] Comment on above: Performed By: #### C BC #### [facility] [address] [place] [address] Dr. Sandi Michelle Neutrophils/100 WBC (Bld) 79.6 % Critically high 43.0-75.0 [facility] Comment on above: Performed By: #### C BC #### [facility] [address] [place] [address] Dr. Sandi Michelle Platelet mean volume (Bld) [Entitic vol] 9.8 fL Normal 9.5-13.5 [facility] Comment on above: Performed By: #### C BC #### [facility] [address] [place] [address] Dr. Sandi Michelle PLT 138 103/ul Critically low 150-450 [facility] Comment on above: Performed By: #### C BC #### [facility] [address] [place] [address] Dr. Sandi Michelle RBC 2.92 106/ul Critically low 4.20-5.40 [facility] Comment on above: Performed By: #### C BC #### [facility] [address] [place] [address] Dr. Sandi Michelle WBC 12.9 103/ul Critically high 4.0-11.0 [facility] Comment on above: Performed By: #### C BC #### [facility] [address] [place] [address] Dr. Sandi Michelle CBC AUTO DIFFon 06-04-2022 BASO # 0.0 103/ul Normal 0.0-0.1 [facility] Comment on above: Performed By: #### C BC #### [facility] [address] [place] [address] Dr. Sandi Michelle Basophils/100 WBC (Bld) 0.3 % Normal 0.2-2.0 [facility] Comment on above: Performed By: #### C BC #### [facility] [address] [place] [address] Dr. Sandi Michelle EO # 0.0 103/ul Normal 0.0-0.7 [facility] Comment on above: Performed By: #### C BC #### [facility] [address] [place] [address] Dr. Sandi Michelle Eosinophils/100 WBC (Bld) 0.1 % Critically low 0.9-7.0 [facility] Comment on above: Performed By: #### C BC #### [facility] [address] [place] [address] Dr. Sandi Michelle Erythrocyte distribution width (RBC) [Ratio] 14.4 % Normal 11.0-15.0 [facility] Comment on above: Performed By: #### C BC #### [facility] [address] [place] [address] Dr. Sandi Michelle Hematocrit (Bld) [Volume fraction] 37.2 % Normal 36.0-48.0 [facility] Comment on above: Performed By: #### C BC #### [facility] [address] [place] [address] Dr. Sandi Michelle Hemoglobin (Bld) [Mass/Vol] 12.9 g/dL Normal 12.0-16.0 [facility] Comment on above: Performed By: #### C BC #### [facility] [address] [place] [address] Dr. Sandi Michelle IG # 0.23 10e3/ul Critically high 0.00-0.03 [facility] Comment on above: Performed By: #### C BC #### [facility] [address] [place] [address] Dr. Sandi Michelle IG % 1.6 % Critically high 0.0-0.5 [facility] Comment on above: Performed By: #### C BC #### [facility] [address] [place] [address] Dr. Sandi Michelle LYMPH # 2.3 103/ul Normal 1.2-3.8 [facility] Comment on above: Performed By: #### C BC #### [facility] [address] [place] [address] Dr. Sandi Michelle Lymphocytes/100 WBC (Bld) 16.0 % Critically low 20.5-60.0 [facility] Comment on above: Performed By: #### C BC #### [facility] [address] [place] [address] Dr. Sandi Michelle MANUAL DIFF REQ NO Normal [facility] Comment on above: Performed By: #### C BC #### [facility] [address] [place] [address] Dr. Sandi Michelle MCH (RBC) [Entitic mass] 32.3 pg Normal 26.7-34.0 [facility] Comment on above: Performed By: #### C BC #### [facility] [address] [place] [address] Dr. Sandi Michelle MCHC (RBC) [Mass/Vol] 34.7 g/dL Normal 29.9-35.2 [facility] Comment on above: Performed By: #### C BC #### [facility] [address] [place] [address] Dr. Sandi Michelle MCV (RBC) [Entitic vol] 93.0 fL Normal 81.0-99.0 [facility] Comment on above: Performed By: #### C BC #### [facility] [address] [place] [address] Dr. Sandi Michelle MONO # 0.8 103/ul Normal 0.3-0.8 [facility] Comment on above: Performed By: #### C BC #### [facility] [address] [address] [address] Sandi Michelle Monocytes/100 WBC (Bld) 5.8 % Normal 1.7-12.0 [facility] Comment on above: Performed By: #### C BC #### [facility] [address] [address] [address] Sandi Michelle NEUT # 10.7 103/ul Critically high 1.4-6.5 [facility] Comment on above: Performed By: #### C BC #### [facility] [address] [place] [address] Dr. Sandi Michelle Neutrophils/100 WBC (Bld) 76.2 % Critically high 43.0-75.0 [facility] Comment on above: Performed By: #### C BC #### [facility] [address] [place] [address] Dr. Sandi Michelle Platelet mean volume (Bld) [Entitic vol] 10.9 fL Normal 9.5-13.5 [facility] Comment on above: Performed By: #### C BC #### [facility] [address] [place] [address] Dr. Sandi Michelle PLT 194 103/ul Normal 150-450 [facility] Comment on above: Performed By: #### C BC #### [facility] [address] [place] [address] Dr. Sandi Michelle RBC 4.00 106/ul Critically low 4.20-5.40 [facility] Comment on above: Performed By: #### C BC #### [facility] [address] [place] [address] Dr. Sandi Michelle WBC 14.0 103/ul Critically high 4.0-11.0 [facility] Comment on above: Performed By: #### C BC #### [facility] [address] [place] [address] Dr. Sandi Michelle Covid-19 PCR ([facility])on 05-25 SARS-CoV-2 (COVID-19) RNA ALETHEA+probe Ql (Unsp spec) Not detected Normal NOT DETECTED [facility] Comment on above: Result Comment: When [...] for this test is supported by the [place] Clerk of Health and Human Service's declaration that [...] be used). Performed By: #### C VDTBH ####[facility] [address] [place], [place] [address]Dr. sonia [facility] DRUG SCREEN RAPID (URINE)on 06-04-2022 AMP Negative Normal NEGATIVE [facility] Comment on above: Performed By: #### D RUGRPD ####[facility] [address] [place], [place] [address]Dr. Sandi Michelle BAR Negative Normal NEGATIVE [facility] Comment on above: Performed By: #### D RUGRPD ####[facility] [address] [address]Dr. Sandi Michelle BUP Negative Normal NEGATIVE [facility] Comment on above: Performed By: #### D RUGRPD ####[facility] [address] [address]Dr. sonia Michelle BZO Negative Normal NEGATIVE [facility] Comment on above: Performed By: #### D RUGRPD ####[facility] [address] [address]Dr. Sandi Michelle NINO Negative Normal NEGATIVE [facility] Comment on above: Performed By: #### D RUGRPD ####[facility] [address] [place], [place] [id number]. Sandi Michelle CUT-OFFS SEE BELOW Normal [facility] Comment on above: Result Comment: [...] 300 ng/mL Performed By: #### D RUGRPD ####[facility] [address] [place], [place] [address]Dr. Sandi Michelle DRUG CUT HEADER DRUG CLASS TEST SYSTEM CUT-OFF CONCENTRATIONS ARE FOLLOWS: Normal [facility] Comment on above: Performed By: #### D RUGRPD ####[facility] [address] [place], [place] [address]Dr. Sandi Michelle mAMP Negative Normal NEGATIVE [facility] Comment on above: Performed By: #### D RUGRPD ####[facility] [address] [place], [place] [address]Dr. Sandi Michelle MTD Negative Normal NEGATIVE [facility] Comment on above: Performed By: #### D RUGRPD ####[facility] [address] [place], [place] [address]Dr. Sandi Michelle OPI Negative Normal NEGATIVE [facility] Comment on above: Performed By: #### D RUGRPD ####[facility] [address] [place], [place] [address]Dr. Sandi Michelle OXY Negative Normal NEGATIVE [facility] Comment on above: Performed By: #### D RUGRPD ####[facility] [address] [place], [place] [address]Dr. Sandi Michelle PCP Negative Normal NEGATIVE [facility] Comment on above: Performed By: #### D RUGRPD ####[facility] [address] [address]Dr. Sandi Michelle PPX Negative Normal NEGATIVE [facility] Comment on above: Performed By: #### D RUGRPD ####[facility] [address] [id number]. Sandi Michelle TCA Negative Normal NEGATIVE [facility] Comment on above: Performed By: #### D RUGRPD ####[facility] [address] [address]Dr. Sandi Michelle THC Negative Normal NEGATIVE [facility] Comment on above: Performed By: #### D RUGRPD ####[facility] [address] [address]Dr. Sandi Michelle TYPE AND SCREENon 06-04-2022 TYPE AND SCREEN Negative Normal [facility] Comment on above: Performed By: #### T NS ####[facility] [address] [place], [place] [address]Dr. Sandi Michelle US PREG BIOPHY W NON [...] RIGO FISCHER Date: 2022-05-30 08:30 Normal [facility] GROUP B STREP CULTUREon S. agalactiae Ag Ql (Unsp spec) Culture Observations: NEGATIVE FOR GROUP B STREPTOCOCCUS. Normal [facility] Comment on above: Performed By: #### G BSCX ####[facility] [address] [address]Dr. Sandi Michelle US PREG BIOPHY W NON [...] by: RIGO FISCHER Date: 2022-05-23 09:41 Normal [facility] US PREG BIOPHY W NON STRESSo n [...] by: RIGO FISCHER Date: 2022-05-16 16:10 Normal [facility] US PREG GROWTHon 05-11-2022 US PREG GROWTH EXAMINATION: US PREG GROWTH, US PREG CERVICAL LENGTH HISTORY: Excessive growth affecting management of mother COMPARISON: Ultrasound growth 04/27/2022 FINDINGS: Heart Rate: 137.8 bpm (accession [id number]), 167.3 bpm (accession [id number]) Number: 1.0 Position: BREECH Amniotic Fluid Volume: [...] by: TIFF BAUMANN Date: 2022-05-11 19:19 Normal [facility] US PREG GROWTHon 04-27-2022 US PREG GROWTH [...] by: TIFF BAUMANN Date: 2022-04-27 20:51 Normal [facility] GLUCOSE - 1HRon 03-15-2022 Glucose [Mass/Vol] 137 mg/dL Critically high 74-106 [facility] Comment on above: Performed By: #### C BC #### [facility] [address] [place] [address] Dr. Sandi Michelle HEMOGRAM AND PLATELon 2021 Hematocrit (Bld) [Volume fraction] 34.9 % Critically low 36.0-48.0 [facility] Comment on above: Performed By: #### C BC #### [facility] [address] [place] [address] Dr. Sandi Michelle Hemoglobin (Bld) [Mass/Vol] 11.5 g/dL Critically low 12.0-16.0 [facility] Comment on above: Performed By: #### C BC #### [facility] [address] [place] [address] Dr. Sandi Michelle MCH (RBC) [Entitic mass] 31.8 pg Normal 26.7-34.0 [facility] Comment on above: Performed By: #### C BC #### [facility] [address] [place] [address] Dr. Sandi Michelle MCHC (RBC) [Mass/Vol] 33.0 g/dL Normal 29.9-35.2 [facility] Comment on above: Performed By: #### C BC #### [facility] [address] [place] [address] Dr. Sandi Michelle MCV (RBC) [Entitic vol] 96.4 fL Normal 81.0-99.0 [facility] Comment on above: Performed By: #### C BC #### [facility] [address] [place] [address] Dr. Sandi Michelle PLT 225 103/ul Normal 150-450 [facility] Comment on above: Performed By: #### C BC #### [facility] [address] [place] [address] Dr. Sandi Michelle RBC 3.62 106/ul Critically low 4.20-5.40 [facility] Comment on above: Performed By: #### C BC #### [facility] [address] [place] [address] Dr. Sandi Michelle WBC 12.9 103/ul Critically high 4.0-11.0 [facility] Comment on above: Performed By: #### C BC #### [facility] [address] [place] [address] Dr. Sandi Michelle CHLAMYDIA/GONOCOCCUS ALETHEA (SW AB/URINE/PAPon 02-04-2022 Chlamydia trachomatis, ALETHEA Negative Normal Negative [facility] Comment on above: Performed By: #### C T/NGNA #### [facility] [address] [address] [address] Sandi Michelle Neisseria gonorrhoeae, ALETHEA Negative Normal Negative [facility] Comment on above: Performed By: #### C T/NGNA #### [facility] [address] [address] [address] Sandi Michelle PAP ACOG PANEL 2: 30 to 65on 02-04-2022 . . Normal [facility] Comment on above: Result Comment: Perf ormed at: WB Performed By: #### [id number] ####[facility] [address] [address]Dr. Sandi Michelle Age Gdln ACOG Testing 30-65 Normal [facility] Comment on above: Performed By: #### 4 [id number] ####[facility] [address] [address]Dr. Sandi Michelle DIAGNOSIS: Comment Normal [facility] Comment on above: Result Comment: NEGA TIVE FOR INTRAEPITHELIAL LESION OR MALIGNANCY. Performed at: WB Performed By: #### 4 [id number] ####[facility] [address] [address]DrDen Michelle HPV Aptima Negative Normal Negative [facility] Comment on above: Result Comment: This nucleic acid amplification test detects fourteen high-risk HPV types (16,18,31,33,35,39,45,51,52,56,58,59,66,68) without differentiation. Performed at: =G Performed By: #### 4 [id number] ####[facility] [address] [address]DrDen Michelle Methodology: Comment Normal [facility] Comment on above: Result Comment: This liquid based ThinPrep(R) pap test was screened with the use of an image guided system. Performed at: WB Performed By: #### 4 [id number] ####[facility] [address] [address]Dr. Sandi Michelle Note: Comment Normal [facility] Comment on above: Result Comment: The Pap smear is a screening test designed to aid in the detection of premalignant and malignant conditions of the uterine cervix. It is not a diagnostic procedure and should not be used as the sole means of detecting cervical cancer. Both false-positive and false-negative reports do occur. . Performed at: WB Performed By: #### 4 [id number] ####[facility] [address] [address]Dr. Sandi Michelle Performed by: Comment Normal [facility] Comment on above: Result Comment: Vikas Mcclellan, Detective Bureau Chief (ASCP) Performed at: WB Performed By: #### 4 [id number] ####[facility] [address] [place], [place] [address]Dr. Sandi Michelle Specimen adequacy: Comment Normal [facility] Comment on above: Result Comment: Sati sfactory for evaluation. No endocervical component is identified. Performed at: WB Performed By: #### 4 [id number] ####[facility] [address] [place], [place] [address]Dr. Sandi Michelle VAGINITIS/VAGINOSIS DNA PROB Nicholas 02-03-2022 Kaitlynn species Negative Normal Negative [facility] Comment on above: Performed By: #### V AGINT ####[facility] [address] [place], [place] [address]Dr. Sandi Michelle Gardnerella vaginalis Negative Normal Negative [facility] Comment on above: Performed By: #### V AGINT ####[facility] [address] [place], [place] [address]Dr. Sandi Michelle Trichomonas vaginalis Negative Normal Negative [facility] Comment on above: Performed By: #### V AGINT ####[facility] [address] [place], [place] [address]Dr. Sanjuanitasonia Miguel Angel US PREG ANATOMY SINGLEon [...] RIGO FISCHER Date: 2022-02-01 19:32 Normal [facility] AFP MATERNAL FOR SPINA BIFID Aon 01-21-2022 AFP MoM 1.24 Normal [facility] Comment on above: Performed By: #### A FPMAT ####[facility] [address] [address]Dr. Sandi Michelle AFP Value 55.2 ng/mL Normal [facility] Comment on above: Performed By: #### A FPMAT ####[facility] [address] [address]Dr. Sandi Michelle AFP, Serum for Spina Bifida Report Normal [facility] Comment on above: Performed By: #### A FPMAT ####[facility] [address] [address]Dr. Sandi Michelle Comment Comment Normal [facility] Comment on above: Result Comment: Iesha Sullivan, Ph.D., [facility] Director . References: Available Upon Request. . Multiples Of Median Cutoffs For AFP Elevations Bhandari 2.5 Black 2.8 IDD 2.0 Twins 4.5 Abbreviation Definitions IDD - Insulin Dep Diabetes OSBR - Open Spina Bifida Risk . For further inquiries contact [employer] [facility] at [phone]. . This test was developed and its performance characteristics determined by [facility]. It has not been cleared or approved by the Food and Drug Administration. Performed By: #### A FPMAT ####[facility] [address] [address]Dr. Sandi Miguel Angel Gest Age Collection Date 18.1 weeks Normal [facility] Comment on above: Performed By: #### A FPMAT ####[facility] [address] [address]Dr. Sandi Michelle Gestat, Age Based on JOSE Normal [facility] Comment on above: Result Comment: 05/26 Recalculations are not recommended when gestational dating by LMP and ultrasound are within 10 days. Performed By: #### A FPMAT ####[facility] [address] [address]Dr. Sandi Michelle Insulin Dep Diabetes Comment Normal [facility] Comment on above: Result Comment: Not provided. . Performed By: #### A FPMAT ####[facility] [address] [place], [place] [address]Dr. Sandi Michelle Interpretation Comment Normal [facility] Comment on above: Result Comment: [...] Customer Services to discuss available options. The [employer] recommends amniocentesis be offered to women age 35 and older. Performed By: #### A FPMAT ####[facility] [address] [id number] Michelle [age] Normal [facility] Comment on above: Performed By: #### A FPMAT ####[facility] [address] [address]Dr. Sandi Michelle Multiple Gestation No Normal [facility] Comment on above: Performed By: #### A FPMAT ####[facility] [address] [id number]. Sandi Michelle OSBR Risk 1 [place] 5748 Normal [facility] Comment on above: Performed By: #### A FPMAT ####[facility] [address] [address]DrDen Michelle PDF . Normal [facility] Comment on above: Performed By: #### A FPMAT ####[facility] [address] [address]DrDen Michelle Race Normal [facility] Comment on above: Performed By: #### A FPMAT ####[facility] [address] [address]DrDen Michelle Test Results: Negative Normal [facility] Comment on above: Performed By: #### A FPMAT ####[facility] [address] [place] [address]DrDen Michelle HEP B SURFACE ANTIGEN SCREEN on 11-22-2021 HBsAg Screen Negative Normal Negative [facility] Comment on above: Performed By: #### H BSANS ####[facility] [address] [place] [address]DrDen Michelle HEPATITIS C VIRUS AB W/ REFL EX QUANTon 11-22-2021 HCV AB 0.1 s/co ratio Normal 0.0-0.9 [facility] Comment on above: Performed By: #### C BC #### [facility] [address] [address] [address] Sandi Michelle Interpretation: Comment Normal [facility] Comment on above: Result Comment: Nega tive Not infected with HCV, unless recent infection is suspected or other evidence exists to indicate HCV infection. Performed By: #### C BC #### [facility] [address] [address] [address] Sandi Michelle HIV 1 AND 2 WITH REFLEXon HIV Screen 4th Generation wRfx Non-Reactive Normal Non Reactive [facility] Comment on above: Result Comment: HIV Negative HIV-1/HIV-2 antibodies and HIV-1 p24 antigen were NOT detected. There is no laboratory evidence of HIV infection. Performed By: #### H IV12 ####[facility] [address] [place] [address]Dr. Sandi Michelle RPR QUANTon 11-22-2021 Rapid Plasma Reagin, Quant Non-Reactive Normal NonRea<1:1 [facility] Comment on above: Result Comment: Plea se Note: This test does not meet current guidelines for screening and diagnosis of syphilis. This test is intended for following treatment response in patients being treated for syphilis infection. To screen for syphilis infection, a reflex cascade that includes both RPR and a treponema-specific assay should be utilized, such as Treponema pallidum (Syphilis) Screening [place] (788755) or Rapid Plasma Reagin (RPR) Test With Reflex to Quantitative RPR and Confirmatory Treponema pallidum Antibodies (395784). Performed By: #### C BC #### [facility] [address] [place] [address] Dr. Sandi Michelle RUBELLA AB IGGon 11-22-2021 Rubella Antibodies, IgG 9.33 index Normal Immune >0.99 [facility] Comment on above: Result Comment: Non- immune <0.90 Equivocal 0.90 - 0.99 Immune >0.99 Performed By: #### C BC #### [facility] [address] [place] [address] Dr. Sandi Michelle CBC AUTO DIFFon 11-21-2021 BASO # 0.0 103/ul Normal 0.0-0.1 [facility] Comment on above: Performed By: #### C BC #### [facility] [address] [address] [address] Sandi Michelle Basophils/100 WBC (Bld) 0.4 % Normal 0.2-2.0 [facility] Comment on above: Performed By: #### C BC #### [facility] [address] [address] [address] Sandi Michelle EO # 0.1 103/ul Normal 0.0-0.7 [facility] Comment on above: Performed By: #### C BC #### [facility] [address] [place] [address] Dr. Sandi Michelle Eosinophils/100 WBC (Bld) 0.6 % Critically low 0.9-7.0 [facility] Comment on above: Performed By: #### C BC #### [facility] [address] [place] [address] Dr. Sandi Michelle Erythrocyte distribution width (RBC) [Ratio] 11.9 % Normal 11.0-15.0 [facility] Comment on above: Performed By: #### C BC #### [facility] [address] [place] [address] Dr. Sandi Michelle Hematocrit (Bld) [Volume fraction] 37.1 % Normal 36.0-48.0 [facility] Comment on above: Performed By: #### C BC #### [facility] [address] [place] [address] Dr. Sandi Michelle Hemoglobin (Bld) [Mass/Vol] 12.2 g/dL Normal 12.0-16.0 [facility] Comment on above: Performed By: #### C BC #### [facility] [address] [place] [address] Dr. Sandi Michelle IG # 0.03 10e3/ul Normal 0.00-0.03 [facility] Comment on above: Performed By: #### C BC #### [facility] [address] [place] [address] Dr. Sandi Michelle IG % 0.4 % Normal 0.0-0.5 [facility] Comment on above: Performed By: #### C BC #### [facility] [address] [place] [address] Dr. Sandi Michelle LYMPH # 1.8 103/ul Normal 1.2-3.8 [facility] Comment on above: Performed By: #### C BC #### [facility] [address] [place] [address] Dr. Sandi Michelle Lymphocytes/100 WBC (Bld) 23.4 % Normal 20.5-60.0 [facility] Comment on above: Performed By: #### C BC #### [facility] [address] [place] [address] Dr. Sandi Michelle MANUAL DIFF REQ NO Normal [facility] Comment on above: Performed By: #### C BC #### [facility] [address] [place] [address] Dr. Sandi Michelle MCH (RBC) [Entitic mass] 31.4 pg Normal 26.7-34.0 [facility] Comment on above: Performed By: #### C BC #### [facility] [address] [place] [address] Dr. Sandi Michelle MCHC (RBC) [Mass/Vol] 32.9 g/dL Normal 29.9-35.2 [facility] Comment on above: Performed By: #### C BC #### [facility] [address] [place] [address] Dr. Sandi Michelle MCV (RBC) [Entitic vol] 95.6 fL Normal 81.0-99.0 [facility] Comment on above: Performed By: #### C BC #### [facility] [address] [place] [address] Dr. Sadni Michelle MONO # 0.5 103/ul Normal 0.3-0.8 [facility] Comment on above: Performed By: #### C BC #### [facility] [address] [place] [address] Dr. Sandi Michelle Monocytes/100 WBC (Bld) 6.6 % Normal 1.7-12.0 [facility] Comment on above: Performed By: #### C BC #### [facility] [address] [place] [address] Dr. Sandi Michelle NEUT # 5.4 103/ul Normal 1.4-6.5 [facility] Comment on above: Performed By: #### C BC #### [facility] [address] [place] [address] Dr. Sandi Michelle Neutrophils/100 WBC (Bld) 68.6 % Normal 43.0-75.0 [facility] Comment on above: Performed By: #### C BC #### [facility] [address] [address] [address] Sandi Michelle Platelet mean volume (Bld) [Entitic vol] 10.1 fL Normal 9.5-13.5 [facility] Comment on above: Performed By: #### C BC #### [facility] [address] [place] [address] Dr. Sandi Michelle PLT 237 103/ul Normal 150-450 [facility] Comment on above: Performed By: #### C BC #### [facility] [address] [place] [address] Dr. Sandi Michelle RBC 3.88 106/ul Critically low 4.20-5.40 [facility] Comment on above: Performed By: #### C BC #### [facility] [address] [place] [address] Dr. Sandi Michelle WBC 7.9 103/ul Normal 4.0-11.0 [facility] Comment on above: Performed By: #### C BC #### [facility] [address] [place] [address] Dr. Sandi Michelle CULTURE URINEon 11-21-2021 CULTURE URINE Culture Observations : LIGHT GROWTH OF MIXED GENITAL MENDEZ. NO POTENTIAL PATHOGENS SEEN. Normal [facility] Comment on above: Performed By: #### U RCX #### [facility] [address] [place] [address] Dr. Sandi Michelle GLYCOHEMOGLOBIN A1Con 2021 ADA RECOMMENDATION SEE BELOW Normal [facility] Comment on above: Result Comment: ADA RECOMMENDED LIMIT 4.0 - 6.0 ADA THERAPEUTIC TARGET < 7.0 ACTION SUGGESTED > 7.0 Performed By: #### A 1C ####[facility] [address] [place], [place] [address]Ij. Sandi Michelle Glucose [Mass/Vol] 103 mg/dL Normal [facility] Comment on above: Performed By: #### A 1C ####[facility] [address] [place], [place] [address]Df. Sandi Michelle HbA1c (Bld) [Mass fraction] 5.2 % Normal 4.5-6.2 [facility] Comment on above: Performed By: #### A 1C ####[facility] [address] [place], [place] [address]Wt. Sandi Michelle TYPE AND SCREENon 11-21-2021 TYPE AND SCREEN Negative Normal [facility] Comment on above: Performed By: #### T NS #### [facility] [address] [address] [address] Sandi Michelle US PREG TVon 11-03-2021 [...] by: TIFF BAUMANN Date: 2021-11-03 07:19 Normal [facility] PREG QUANT HCGon 10-14-2021 HCG QUANT 469 mIU/mL Normal [facility] Comment on above: Performed By: #### P REGQNT #### [facility] [address] [address] [address] Sandi Michelle HCG RANGE SEE BELOW Normal [facility] Comment on above: Result Comment: 5-50 0-1 WEEK 40-300 1-2 WEEKS 100-1,000 2-3 WEEKS 500-6,000 3-4 WEEKS 5,000-200,000 1-2 MONTHS 10,000-100,000 2-3 MONTHS 3,000-50,000 2ND TRIMESTER 1,000-50,000 3RD TRIMESTER Performed By: #### P REGQNT #### [facility] [id number] Sandi Michelle PREG QUANT HCGon 10-12-2021 HCG QUANT 184 mIU/mL Normal [facility] Comment on above: Performed By: #### C BC #### [facility] [id number] Sandi Michelle HCG RANGE SEE BELOW Normal [facility] Comment on above: Result Comment: 5-50 0-1 WEEK 40-300 1-2 WEEKS 100-1,000 2-3 WEEKS 500-6,000 3-4 WEEKS 5,000-200,000 1-2 MONTHS 10,000-100,000 2-3 MONTHS 3,000-50,000 2ND TRIMESTER 1,000-50,000 3RD TRIMESTER Performed By: #### C BC #### [facility] [id number] Sandi Michelle PROTEIN C FUNC ACTIVITYon Prt C Activity (Chromogenic) 130 % Normal [facility] Comment on above: Result Comment: Refe rence Range: 17 years and older: 73 - 180 Effective August 10, 2021 Prt C Activity, (Chromogenic) will be made non-orderable. This will not affect any profile that includes Prt C Activity (Chromogenic). [facility] offers [id number] Protein C Functional. For more information please contact your local [facility] Pick Up And Delivery Driver. Performed By: #### P RCACT ####[facility] [address] [place], [place] [address]HuDr. Sandi Michelle FACTOR V LEIDEN MUTATION CIARAN LYSISon 07-27-2021 Factor V Leiden Comment Normal [facility] Comment on above: Result Comment: Resu lt: c.1601G>A (p.[id number]) - Not Detected . This result is not associated with an increased risk for venous thromboembolism. See Additional Clinical Information and Comments. Additional Clinical Information: Venous thromboembolism is a multifactorial disease influenced by genetic, environmental, and circumstantial risk factors. The c.1601G>A (p. [id number]) variant in the F5 gene, commonly referred [...] c.*97G>A variant and Factor V Leiden (PMID: 77855804). Additional risk factors include but are not [...] health care providers to discuss results at [phone] ([phone]). . Test Details: Variant Analyzed: c.1601G>A (p. [id number]), referred to as Factor V Leiden . [...] developed and its performance characteristics determined by [employer]. It has not been cleared or approved by the Food and Drug Administration. . References: Masoud Galloway, Hawa GUTIÉRREZ, Randy R, Moses WW, Luis A JH; ACMG Professional Practice and Guidelines Committee. Addendum: [employer] consensus statement on factor V Leiden mutation testing. [place] [employer]. 2020Sep 26. doi: 10.1038/w96870-725-64851-l. PMID: 28726907. . Miriam GAMING. Factor V Leiden Thrombophilia. 1998December 05 [Updated 2017Jul 28]. In: Jv MP, Delia HH, Ian RA, et al., editors. Jovita(R) [Internet]. [place]): [facility]; [phone]. Available from: https://www.ncbi.nlm.nih.gov/books/SLU6306/ . Jonh S, Hawa GUTIÉRREZ, Francisco Javier X, Leobardo B, Ash EB, Deysi P, Mari CS; [employer] Laboratory Metal Riveter Committee. Venous thromboembolism laboratory testing (factor V Leiden and factor II c.*97G>A), 2018 update: a technical standard of the [employer] and [employer] (ACMG). [place] [employer]. 2018 Jun;20(12):7174-2902. doi: 10.1038/f53459-072-3688-g. Epub 2017Apr 28. PMID: 82659579. . Martha Guillen, PhD, [facility] Lindsay Jaquez, PhD, FAC Pete Brown, PhD, FAC Geronimo Mcdaniel, PhD, FAC Norm Hays, PhD, [facility] Maureen Mancilla, PhD, [facility] Performed By: #### F VPCR ####[facility] [address] [place], [place] [address]NeDr. Sandi Michelle ANTITHROMBIN ACTIVITYon 01-0 Antithrombin Activity 102 % Normal 75-135 [facility] Comment on above: Result Comment: Dire ct Xa inhibitor anticoagulants such as rivaroxaban, apixaban and edoxaban will lead to spuriously elevated antithrombin activity levels possibly masking a deficiency. Performed By: #### C BC #### [facility] [address] [place], [place] [address] Dr. Sandi Michelle B-2 GLYCOPROTEIN AB IGGon Beta-2 Glycoprotein I Ab, IgG <9 Normal 0-20 [facility] Comment on above: Result Comment: The reference interval reflects a 3SD or 99th percentile interval, which is thought to represent a potentially clinically significant result in accordance with the International Consensus Statement on the classification criteria for definitive antiphospholipid syndrome (APS). J Thromb Haem 2006;4:295-306. Performed By: #### B 2GPG ####[facility] [address] [place] [address]Dr. Sandi Michelle B2-GLYCOPROTEIN 1 AB IGMon 0 07-25-2021 Beta-2 Glycoprotein I Ab, IgM <9 Normal 0-32 [facility] Comment on above: Result Comment: The reference interval reflects a 3SD or 99th percentile interval, which is thought to represent a potentially clinically significant result in accordance with the International Consensus Statement on the classification criteria for definitive antiphospholipid syndrome (APS). J Thromb Haem 2006;4:295-306. Performed By: #### B GLYIGM ####[facility] [address] [place] [address]DrDen Michelle LUPUS ANTICOAGULANT W/REFLEX on 07-24-2021 aPTT Coag (Bld) [Time] 30.9 s Normal 0.0-51.9 [facility] Comment on above: Performed By: #### L UPUSRF ####[facility] [address] [place] [address]Dr. Sandi Michelle dRVVT 33.0 sec Normal 0.0-47.0 [facility] Comment on above: Performed By: #### L UPUSRF ####[facility] [address] [place] [address]DrDen Michelle Interpretation Comment: Normal [facility] Comment on above: Result Comment: No l upus anticoagulant was detected. Performed By: #### L UPUSRF ####[facility] [address] [place] [address]Dr. Sandi Michelle PROTEIN S ANTIGENon 07-24-20 21 Protein S, Free 104 % Normal 61-136 [facility] Comment on above: Performed By: #### P RTSAG ####[facility] [address] [place] [address]Dr. Sandi Michelle Protein S, Total 90 % Normal 60-150 [facility] Comment on above: Result Comment: This test was developed and its performance characteristics determined by [employer]. It has not been cleared or approved by the Food and Drug Administration. Performed By: #### P RTSAG ####[facility] [address] [address]Dr. Sandi Michelle PROTEIN S, FUNCTIONALon 12-3 Protein S-Functional 107 % Normal 63-140 [facility] Comment on above: Result Comment: Prot ein S activity may be falsely increased (masking an abnormal, low result) in patients receiving direct Xa inhibitor (e.g., rivaroxaban, apixaban, edoxaban) or a direct thrombin inhibitor (e.g., dabigatran) anticoagulant treatment due to assay interference by these drugs. Performed By: #### C BC #### [facility] [address] [address] [address] Sandi Michelle ANTICARDIOLIPIN AB (JEANIE) IGG on 07-23-2021 Anticardiolipin Ab,IgG,Qn <9 Normal 0-14 [facility] Comment on above: Result Comment: Nega tive: <15 Indeterminate: 15 - 20 Low-Med Positive: >20 - 80 High Positive: >80 Performed By: #### C ARDLIP #### [facility] [address] [address] [address] Sandi Michelle ANTICARDIOLIPIN AB (JEANIE) IGM on 07-23-2021 Anticardiolipin Ab,IgM,Qn 12 MPL U/mL Normal 0-12 [facility] Comment on above: Result Comment: Nega tive: <13 Indeterminate: 13 - 20 Low-Med Positive: >20 - 80 High Positive: >80 Performed By: #### C ARDIGM ####[facility] [address] [place] [address]Dr. Sandi Michelle Vital Signs Date Time Vital Sign Value Performing Clinician Facility 11-14-2024 13:35-0400 Body mass index (BMI) [Ratio] 26.63 kg/m2 [facility] Keyona DO Work Phone: [facility] 11-14-2024 13:35-0400 Body weight 74.84 kg Lee Keyona DO Work Phone: [facility] 11-14-2024 13:35-0400 Diastolic blood pressure 84 mm[Hg] Lee Keyona DO Work Phone: [facility] 11-14-2024 13:35-0400 Systolic blood pressure 118 mm[Hg] Lee Keyona DO Work Phone: [facility] 09-26-2024 11:02-0500 Body mass index (BMI) [Ratio] 30.63 kg/m2 Lee Keyona DO Work Phone: [facility] 09-26-2024 11:02-0500 Body weight 86.09 kg Lee Keyona DO Work Phone: [facility] 09-26-2024 11:02-0500 Diastolic blood pressure 76 mm[Hg] Lee Keyona DO Work Phone: [facility] 09-26-2024 11:02-0500 Systolic blood pressure 116 mm[Hg] Lee Keyona DO Work Phone: [facility] 09-12-2024 14:53-0500 Body mass index (BMI) [Ratio] 30.02 kg/m2 Lee Keyona DO Work Phone: [facility] 09-12-2024 14:53-0500 Body weight 84.37 kg Lee Keyona DO Work Phone: [facility] 09-12-2024 14:53-0500 Diastolic blood pressure 70 mm[Hg] Lee Keyona DO Work Phone: [facility] 09-12-2024 14:53-0500 Systolic blood pressure 120 mm[Hg] Lee Keyona DO Work Phone: [facility] 08-29-2024 15:30-0500 Body mass index (BMI) [Ratio] 29.92 kg/m2 Lee Keyona DO Work Phone: [facility] 08-29-2024 15:30-0500 Body weight 84.1 kg Lee Kyeona DO Work Phone: [facility] 08-29-2024 15:30-0500 Diastolic blood pressure 70 mm[Hg] Lee Keyona DO Work Phone: [facility] 08-29-2024 15:30-0500 Systolic blood pressure 120 mm[Hg] Lee Keyona DO Work Phone: [facility] 08-09-2024 09:39-0500 Body mass index (BMI) [Ratio] 30.18 kg/m2 Lee Keyona DO Work Phone: [facility] 08-09-2024 09:39-0500 Body weight 84.82 kg Lee Keyona DO Work Phone: [facility] 08-09-2024 09:39-0500 Diastolic blood pressure 64 mm[Hg] Lee Keyona DO Work Phone: [facility] 08-09-2024 09:39-0500 Systolic blood pressure 114 mm[Hg] Lee Keyona DO Work Phone: [facility] 07-12-2024 09:59-0500 Body mass index (BMI) [Ratio] 29.39 kg/m2 Lee Keyona DO Work Phone: [facility] 07-12-2024 09:59-0500 Body weight 82.61 kg Lee Keyona DO Work Phone: [facility] 07-12-2024 09:59-0500 Diastolic blood pressure 68 mm[Hg] Lee Keyona DO Work Phone: [facility] 07-12-2024 09:59-0500 Systolic blood pressure 108 mm[Hg] Lee Keyona DO Work Phone: [facility] 06-11-2024 16:44-0500 Body mass index (BMI) [Ratio] 28.59 kg/m2 Lee Keyona DO Work Phone: [facility] 06-11-2024 16:44-0500 Body weight 80.34 kg Lee Keyona DO Work Phone: [facility] 06-11-2024 16:44-0500 Diastolic blood pressure 70 mm[Hg] Lee Keyona DO Work Phone: [facility] 06-11-2024 16:44-0500 Systolic blood pressure 108 mm[Hg] Lee Keyona DO Work Phone: [facility] 05-08-2024 15:11-0400 Body mass index (BMI) [Ratio] 27.76 kg/m2 Lee Keyona DO Work Phone: [facility] 05-08-2024 15:11-0400 Body weight 78.02 kg Lee Keyona DO Work Phone: [facility] 05-08-2024 15:11-0400 Diastolic blood pressure 70 mm[Hg] Lee Keyona DO Work Phone: [facility] 05-08-2024 15:11-0400 Systolic blood pressure 112 mm[Hg] Lee Keyona DO Work Phone: [facility] 04-05-2024 14:24-0400 Body mass index (BMI) [Ratio] 27.76 kg/m2 Nom Nurse [facility] 04-05-2024 14:24-0400 Body weight 78.02 kg Nom Nurse [facility] 04-05-2024 14:24-0400 Diastolic blood pressure 68 mm[Hg] [facility] Nurse [facility] 04-05-2024 14:24-0400 Systolic blood pressure 118 mm[Hg] [facility] Nurse [facility] 01-21-2022 03:06-0400 Body weight 72.[address] LEE RAND [facility] Comment on above: Performed By: #### A FPMAT ####[facility] [address] [place], [place] [address]KfDen Michelle Encounters Encounter Date Encounter Type Care Provider Facility Start: 02-11-2025 End: 02-11-2025 Bamboo flowsheet Lee Keyona DO Work Phone: [facility] Start: 02-11-2025 End: 02-11-2025 Bamboo flowsheet Lee Keyona DO Work Phone: [facility] Start: 11-14-2024 End: 11-14-2024 Bamboo flowsheet Lee Keyona DO Work Phone: [facility] Start: 11-14-2024 End: 11-14-2024 Bamboo flowsheet Lee Keyona DO Work Phone: [facility] Start: 11-14-2024 End: 11-14-2024 Postop follow up visit related to original px Lee Keyona DO Work Phone: [facility] Comment on above: Postoperative follow -up Start: 11-14-2024 End: 11-14-2024 ambulatory LEE KEYONA Not Available Start: 10-08-2024 End: 10-08-2024 ambulatory LEE KEYONA Not Available Start: 10-05-2024 End: 10-05-2024 Telephone encounter Mattie Reyes [facility] Call Kody echevarria Comment on above: consent Results Start: 10-03-2024 End: 10-05-2024 Evaluation and management of inpatient RIGO Andrews [facility] Start: 10-03-2024 End: 10-03-2024 Orders Only Kyrie Brown MD Work Phone: [facility] Start: 09-26-2024 End: 09-26-2024 Bamboo flowsheet Lee Keyona DO Work Phone: [facility] Start: 09-26-2024 End: 09-26-2024 Bamboo [...] Start: 09-18-2024 End: 09-18-2024 Clinisync Result Encounter Ele Keyona DO Work Phone: [facility] External [facility] [...] Bamboo flowsheet Lee Keyona DO Work Phone: [facility] Start: 08-29-2024 End: 08-29-2024 Bamboo flowsheet Lee Keyona DO Work Phone: [facility] Start: 08-09-2024 End: 08-09-2024 flow sheet Lee Keyona DO Work Phone: [facility] Comment on above: Second trimester pre gnancy; 26 weeks gestation of ; Elevated glucose tolerance test Start: 08-09-2024 End: 08-09-2024 ambulatory LEE KEYONA Not Available Start: 07-28-2024 End: 07-28-2024 Clinisync Result Encounter Lee Keyona DO Work Phone: [facility] External Department Unsolicited Start: [...] Bamboo flowsheet Lee Keyona DO Work Phone: [facility] Start: 07-12-2024 End: 07-12-2024 Bamboo flowsheet Lee Keyona DO Work Phone: [facility] Start: 07-12-2024 End: 07-12-2024 flow [...] flow sheet Lee Keyona DO Work Phone: [facility] Comment on [...] Date Procedure Procedure Detail Performing Clinician Start: 10-04-2024 Adult depression screening assessment Mattie Reyes Start: 09-26-2024 Urnls dip stick/tabl et rgnt [...] Treatment Date Care Activity Detail Author Start: 04-15-2032 DTaP,Tdap and Td Vaccines (2 - Td or Tdap) DTaP,Tdap and Td Vaccines (2 - Td or Tdap) [facility] Start: 10-04-2025 Depression Screening Depression Scre ening [facility] Start: 10-04-2025 Tobacco Screening Tobacco Screening [facility] Start: 02-11-2025 End: 02-11-2025 Patient encounter procedure [facility] Comment on above: Arrived Start: 11-14-2024 End: 11-14-2024 Patient encounter procedure 11/14/2024 1:30 PM EDT Office Visit [facility] [address] [place] [address] Lee Rand, DO [address] [place] [address] Arrived [facility] Comment on above: Arrived Start: 10-11-2024 End: 10-11-2024 Patient encounter procedure 10/11/2024 8:30 AM EDT Routine [facility] [address] [place] [id number] Lee Rand, DO [address] [place] [address] [facility] Start: 09-26-2024 End: 09-26-2024 Patient encounter procedure [facility] Comment on above: Arrived Start: 09-12-2024 End: 09-12-2024 Patient encounter procedure 09/12/2024 2:30 PM EST Routine [facility] [address] [place] [id number] Lee Rand, DO [address] [place] [address] [facility] [facility] Start: 08-29-2024 End: 08-29-2024 [...] AM EST Routine [facility] [address] [facility] [place] [phone] Lee Rand, DO [address] [place] [address] [facility] Start: 07-31-2024 End: 07-31-2024 Patient encounter procedure 07/31/2024 1:00 PM EST Office Visit [facility] [address] [facility] [place] [phone] Lee Rand, DO [address] [address] [facility] Start: 07-12-2024 End: 07-12-2025 CBC panel - Blood by Automated count CBC Lab Routine Diabetes mellitus screening Expected: 07/12/2024 (Approximate), Expires: 07/12/2025 [facility] Work Phone: Comment on above: Expected: 07/12/2024 (Approximate), Expires: 07/12/2025 Start: 07-12-2024 End: 07-12-2025 Measurement of glucose 1 hour after glucose challenge for glucose tolerance test Glucose tolerance, 1 hour Lab Routine Diabetes mellitus screening Expected: 07/12/2024 (Approximate), Expires: 07/12/2025 [facility] Comment on above: Expected: 07/12/2024 (Approximate), Expires: 07/12/2025 Start: 07-12-2024 End: 07-12-2024 Patient encounter procedure [facility] Comment on above: Arrived Start: 06-11-2024 End: 06-11-2024 Patient encounter procedure 06/11/2024 3:50 PM EST Routine [facility] [address] [facility] [place] [phone] Lee Rand, [address] [facility] [place] [address] [facility] Start: 06-11-2024 End: 12-09-2024 Alpha fetoprotein, maternal Alpha fetoprotein, maternal Lab Routine Second trimester Expected: 06/11/2024 (Approximate), Expires: 12/09/2024 [facility] Comment on above: Expected: 06/11/2024 (Approximate), Expires: 12/09/2024 Start: 06-11-2024 End: 06-11-2025 US for US OB ANATOMY SINGLE W US OB CERVICAL LENGTH Imaging Routine Screening, , for anatomic survey Expected: 06/11/2024 (Approximate), Expires: 06/11/2025 [facility] Comment on above: Expected: 06/11/2024 (Approximate), Expires: 06/11/2025 Start: 05-08-2024 End: 05-08-2024 Patient encounter procedure [facility] Comment on above: Arrived Start: 04-05-2024 End: 04-05-2025 ABO/Rh ABO/Rh Lab Routine Missed menses Expected: 04/05/2024 (Approximate), Expires: 04/05/2025 [facility] Comment on above: Expected: 04/05/2024 (Approximate), Expires: 04/05/2025 Start: 04-05-2024 End: 04-05-2025 Blood type and Indirect antibody screen panel - Blood Type and screen Lab Routine Missed menses Expected: 04/05/2024 (Approximate), Expires: 04/05/2025 [facility] Work Phone: Comment on above: Expected: 04/05/2024 (Approximate), Expires: 04/05/2025 Start: 04-05-2024 End: 04-05-2025 Drugs of abuse panel - Urine by Screen method Rapid drug screen, urine Lab Routine Encounter for supervision of normal first in first trimester , unspecified gestational age Expected: 04/05/2024 (Approximate), Expires: 04/05/2025 [facility] Comment on above: Expected: 04/05/2024 (Approximate), Expires: 04/05/2025 Start: 04-05-2024 End: 04-05-2025 US Pelvis transvaginal US OB transvaginal Imaging Routine Missed menses Expected: 04/05/2024 (Approximate), Expires: 04/05/2025 [facility] Comment on above: Expected: 04/05/2024 (Approximate), Expires: 04/05/2025 Start: 03-25-2024 Influenza vaccination Influenza Vacc ine [facility] Start: 2012 Screening for malign ant neoplasm of cervix Pap Smear [facility] Start: 2009 Adult BMI Screening Adult BMI Screen ing [facility] Bacteria identified in Urine by Culture Urine culture Microbiology Routine Missed menses Ordered: 04/05/2024 [facility] Comment on above: Ordered: 04/05/2024 CBC W Auto Different ial panel - Blood CBC and differential Lab Routine Missed menses Ordered: 04/05/2024 [facility] Comment on above: Ordered: 04/05/2024 CHLAMYDIA TRACHOMATI S (GENITO/STI) CHLAMYDIA TRACHOMATIS (GENITO/STI) Lab Routine STD exposure Ordered: 06/11/2024 [facility] Comment on above: Ordered: 06/11/2024 Hemoglobin A1c/Hemoglobin.total in Blood Hemoglobin A1c Lab Routine Missed menses Ordered: 04/05/2024 [facility] Comment on above: Ordered: 04/05/2024 Hepatitis B virus surface Ag [Presence] in Serum or Plasma by Immunoassay Hepatitis B surface antigen Lab Routine Missed menses Ordered: 04/05/2024 [facility] Comment on above: Ordered: 04/05/2024 Hepatitis C virus Ab [Presence] in Serum or Plasma by Immunoassay Hepatitis C antibody Lab Routine Missed menses Ordered: 04/05/2024 [facility] Comment on above: Ordered: 04/05/2024 HIV-1/HIV-2 antigen/antibody combination immunoassay HIV-1 and HIV-2 antibodies Lab Routine Missed menses Ordered: 04/05/2024 [facility] Comment on above: Ordered: 04/05/2024 Hysterectomy ABDOMINAL HYSTER ECTOMY PLACENTA ACCRETA SPECTRUM [facility] Neisseria gonorrhoea e DNA [Presence] in Unspecified specimen by ALETHEA with probe detection Neisseria gonorrhea DNA probe, direct Lab Routine STD exposure Ordered: 06/11/2024 [facility] Comment on above: Ordered: 06/11/2024 Reagin Ab [Presence] in Serum by RPR RPR Lab Routine Missed menses Ordered: 04/05/2024 [facility] Comment on above: Ordered: 04/05/2024 Rubella antibody, IgG Rubella an tibody, IgG Lab Routine Missed menses Ordered: 04/05/2024 [facility] Comment on above: Ordered: 04/05/2024 SURESWAB(R) ADVANCED VAGINITIS PLUS, TMA SURESWAB(R) ADVANCED VAGINITIS PLUS, TMA Pathology and Cytology Routine Vaginal discharge Ordered: 06/11/2024 [facility] Work Phone: Comment on above: Ordered: 06/11/2024 Immunizations Immunization Date Immunization Notes Care Provider [facility] 05-07-2020 influenza virus vaccine, unspecified formulation Mattie [facility] Payers Date Payer Category Payer Commercial Managed C are - PPO [employer] Member Subscriber Plan / Payer (Effective 2024-Present) Name: Ani Anna Darryl Relation to Subscriber: Spouse Name: Mike Law II Date of : 1992 (Home) Address: [address] [place] [address] Payer ID: Not on file Type: Not on file Address: [place] [id number] 2024 Private Health Insurance [employer] [id number] 2024 Unknown [id number] 2020 Managed Care HMO (unspecified) [id number] 1991 Unknown [id number] 2.16.840.1.874750.3.579.2. 593 1991 Unknown [id number] 2.16.840.1.901315.3.579.2. 593 1991 Unknown [id number] 2.16.840.1.880644.3.579.2. 593 1991 Unknown [id number] 2.16.840.1.893575.3.579.2. 593 1991 Unknown [id number] 2.16.840.1.235021.3.579.2. 593 1991 Unknown [id number] 2.16.840.1.123307.3.579.2. 593 1991 Unknown [id number] 2.16.840.1.000571.3.579.2. 593 1991 Unknown [id number] 2.16.840.1.668818.3.579.2. 593 1991 Unknown [id number] 2.16.840.1.681513.3.579.2. 593 1991 Unknown [id number] 2.16.840.1.960838.3.579.2. 593 1991 Unknown [id number] 2.16.840.1.655158.3.579.2. 593 1991 Unknown [id number] 2.16.840.1.455541.3.579.2. 593 1991 Unknown [id number] 2.16.840.1.010945.3.579.2. 593 1991 Unknown [id number] 2.16.840.1.613356.3.579.2. 593 1991 Unknown [id number] 2.16.840.1.680247.3.579.2. 593 1991 Unknown [id number] 2.16.840.1.808179.3.579.2. 593 1991 Unknown [id number] 2.16.840.1.095109.3.579.2. 593 1991 Unknown [id number] 2.16.840.1.201417.3.579.2. 593 1991 Unknown [id number] 2.16.840.1.474122.3.579.2. 593 1991 Unknown [id number] 2.16.840.1.250915.3.579.2. 593 1991 Unknown [id number] 2.16.840.1.984074.3.579.2. 593 1991 Unknown [id number] 2.16.840.1.464811.3.579.2. 732 1991 Unknown [id number] 2.16.840.1.860751.3.579.2. 1286 1991 Unknown [id number] 2.16.840.1.447245.3.579.2. 1259 1991 Unknown [id number] 2.16.840.1.252285.3.579.2. 1259 1991 Unknown [id number] 2.16.840.1.622176.3.579.2. 1259 1991 Unknown [id number] 2.16.840.1.136888.3.579.2. 1259 1991 Unknown [id number] 2.16.840.1.570547.3.579.2. 9 1991 Unknown [id number] 2.16.840.1.618767.3.579.2. 9 1991 Unknown [id number] 2.16.840.1.416073.3.579.2. 9 1991 Unknown [id number] 2.16.840.1.216796.3.579.2. 1258 1991 Unknown [id number] 2.16.840.1.222279.3.579.2. 9 1991 Unknown [id number] 2.16.840.1.163140.3.579.2. 9 1991 Unknown [id number] 2.16.840.1.569240.3.579.2. 9 1991 Unknown [id number] 2.16.840.1.240884.3.579.2. 1259 1959 Private Health Insurance [id number] Social History Date Type Detail Facility Start: 02-08-2023 End: 10-04-2024 Tobacco smoking status OKIS Never smoked tobacco [facility] Start: 02-08-2023 End: 10-04-2024 Tobacco use and exposure Smokeless tobacco non-user [facility] Start: 04-05-2024 End: 11-14-2024 Alcoholic beverage intake Lifetime non-drinker (finding) [facility] Start: 07-19-2023 End: 01-02-2024 History of Social function [facility] Start: 07-19-2023 End: 01-02-2024 Tobacco use panel [facility] Start: 02-18-2024 [facility] Start: 1990 Sex assigned at Female [facility] Start: 02-06-2023 Gender identity Identifies as female gender (finding) [facility] Start: 02-06-2023 Sexual orientation Heterosexual (finding) [facility] unknown [facility] Work Phone: Start: 1990 Sex assigned at Not on file [facility] Start: 10-03-2024 Sex Female (finding) [facility] Start: 10-04-2024 Alcoholic beverage intake Ex-drinker (finding) [facility] Has the [employer], or [employer] threatened to shut off services in your home in past 12Mo No [facility] How often to you hav e a drink containing alcohol? Monthly or less [facility] How many standard drinks containing alcohol do you have on a typical day? 1 or 2 [facility] How often do you hav e 6 or more drinks on 1 occasion? Never [facility] Adolescent depressio n screening assessment 5 [facility] Medical Equipment Procedure Code Equipment Code Equipment Origin al Text Equipment Identifier Dates 1 strip by In Vi tro route Daily Use in the morning prior to breakfast, 1 hour after each meal for a total of 4times daily. [id number] Start: 08-09-2024 End: 09-12-2024 1 each by In Vit ro route Daily Use to check FSBS four times daily [id number] Start: 08-09-2024 End: 09-12-2024 Goals Date Patient Goal Desired Activity /State Personal health goal Clinical Notes 06-04-2022 to 11-14-2024 Tere Hu LPN - 11/14/2024 1:30 PM EDTTelephone Encounter - Mattie Reyes - 10/05/2024 1:29 AM EDTTelephone Encounter - Mattie Reyes - 10/05/2024 1:29 AM EDT Note Date & Type Note Facility 11-14-2024 History of Presen t illness Narrative Reason for Appointment: Patient ID: Anna Law is a 34 y.o. female who presents for Post-op Visit Patient presents today for Post Follow Up appointment. MEDICATIONS Current Outpatient Medications Medication Instructions azithromycin (Zithromax Z-Jose) 250 MG tablet As directed pseudoephedrine ER (SUDAFED-12 HOUR) 120 mg, Oral, Every 12 hours, Do not crush, chew, or split. ALLERGIES Allergies Allergen Reactions Hydrocodone-Acetaminophen GI intolerance and Unknown Other Reaction(s): other PROBLEMS Active Ambulatory Problems Diagnosis Date Noted Postoperative follow-up 10/08/2024 Cough 10/08/2024 Upper respiratory tract infection 10/08/2024 Resolved Ambulatory Problems Diagnosis Date Noted No [...] History: Procedure Laterality Date SECTION, LOW TRANSVERSE 10/03/2024 demise DILATION AND CURETTAGE OF UTERUS 07/14/2020 PAP SMEAR 05/05/2020 Normal SALPINGECTOMY Bilateral 10/03/2024 TOTAL ABDOMINAL HYSTERECTOMY 10/04/2024 complications w/delivery REVIEW OF SYSTEMS Review of Systems: Review [...] nursing note reviewed. Exam conducted with a sleep technician present. Vitals: Estimated body mass index is 26.63 kg/m as calculated from the following: Height as of 01/02/24: 5' 6 . Weight as of this encounter: 165 lb. BP: 118/84 Patient's last menstrual period was 02/04/2024. ASSESSMENT & PLAN ICD-10-CM 1. Postoperative follow-up Z09 Post Follow Up: Patient is doing well but has complaints of none- all pathology was reviewed. Patient presents today for 6 week visit. Patient is s/p delivery. Patient states depression is there with the loss but denies suicidal and homicidal ideations. Follow Up: Patient is to return for annual unless needed otherwise. Documented by Tere Hu LPN on behalf of: Lee Rand DO documented in this encounter [facility] 10-05-2024 Miscellaneous Notes Formattin g of this note might be different from the original. Contract: [facility] Gonzalo re needs blood consent signed Numeric page sent Relayed info to Dr Todd ventilation worker back and transferred documented in this encounter [facility] 10-05-2024 Telephone encount er Note Contract: [facility] Gonzalo re needs blood consent signed Numeric page sent [facility] 10-05-2024 Telephone encount er Note Relayed info to Dr Todd ventilation worker back and transferred [facility] 10-05-2024 Miscellaneous Notes Formattin g of this note might be different from the original. Contract: [facility] Gonzalo re critical lab Numeric page sent Relayed info to Dr Todd ventilation worker back and transferred documented in this encounter [facility] 10-05-2024 Telephone encount er Note Contract: [facility] critical lab Numeric page sent [facility] 10-05-2024 Telephone encount er Note Relayed info to Dr Todd ventilation worker back and transferred [facility] 09-26-2024 History of Presen t illness Narrative [...] 81 mg, Daily Blood Glucose Monitoring Suppl ([employer] Glucometer) w/Device kit 1 kit, Does not [...] Grandfather Bo Heidtman Cancer Paternal Grandmother December Arthritis Paternal Grandmother [...] nursing note reviewed. Exam conducted with a sleep technician present. Vitals: Estimated body mass index is [...] kick counts three times a day. At [facility] pt found out VSD noted- pt to return to [facility] on 10/03 for echo. Orders Placed This Encounter Procedures POCT urinalysis dipstick manually resulted Follow Up: Patient is to return to office in 2 week for routine OB appointment. Documented by Tere Hu LPN on behalf of: Lee Rand DO documented in this encounter [facility] 09-12-2024 History of Presen t illness [...] 81 mg, Daily Blood Glucose Monitoring Suppl ([employer] Glucometer) w/Device kit 1 kit, Does not [...] nursing note reviewed. Exam conducted with a sleep technician present. Vitals: Estimated body mass index is [...] Lee Rand DO documented in this encounter [facility] 08-29-2024 History of Presen t illness [...] 81 mg, Daily Blood Glucose Monitoring Suppl ([employer] Glucometer) w/Device kit 1 kit, Does not [...] Grandfather Bo Albright Cancer Paternal Grandmother [facility]is [facility] Arthritis Paternal Grandmother [facility]is [facility] Hypertension Paternal Grandmother Decembersushant SURGICAL HISTORY Past [...] nursing note reviewed. Exam conducted with a sleep technician present. Vitals: Estimated body mass index is [...] Lee Rand DO documented in this encounter [facility] 08-09-2024 History of Presen t illness [...] Grandmother Isis Cannon Arthritis Paternal Grandmother Isis [facility] Hypertension Paternal Grandmother Isis [facility] SURGICAL HISTORY Past Surgical History: Procedure Laterality [...] nursing note reviewed. Exam conducted with a sleep technician present. Vitals: Estimated body mass index is [...] Lee Rand DO documented in this encounter [facility] 07-12-2024 History of Presen t illness [...] Grandfather Bo Jose Ramon Cancer Paternal Grandmother Isis Dvais Arthritis Paternal Grandmother Isis Davis Hypertension Paternal Grandmother December Davis SURGICAL [...] nursing note reviewed. Exam conducted with a sleep technician present. Vitals: Estimated body mass index is [...] with patient and she is scheduled with [facility] for confirmation of complete placenta previa. Patient to return to clinic in 4 weeks for routine OB. Documented by Miranda Parsons LPN on behalf of: Lee Rand DO documented in this encounter [facility] 06-11-2024 History of Presen t illness [...] nursing note reviewed. Exam conducted with a sleep technician present. Vitals: Estimated body mass index is [...] Lee Rand DO documented in this encounter [facility] 05-08-2024 History of Presen t illness [...] Grandfather Bo Heidtman Cancer Paternal Grandmother Isis Cannon Arthritis Paternal [...] nursing note reviewed. Exam conducted with a sleep technician present. Vitals: Estimated body mass index is [...] or undercooked meat, and stay away from [facility]. Patient has been consulted regarding any further do's and don'ts of . Patient voiced understanding and all questions and concerns were answered. Orders Placed This Encounter Procedures POCT urinalysis dipstick manually resulted Follow Up: Patient is to return in 4 weeks for routine OB appointment. Documented by Tere Hu LPN on behalf of: Lee Rand DO documented in this encounter [facility] 04-05-2024 History of Presen t illness [...] Paternal Grandmother December Davis Hypertension Paternal Grandmother Decemberrishabh Social History Tobacco [...] or undercooked meat, and stay away from [facility]. Patient has also been advised to [...] by: Janis Hylton documented in this encounter [facility] 06-04-2022 Note OPERATIVE NOTE OPERATION DATE: 06/04/2022 PROCEDURE: Primary low transverse section. PREOPERATIVE DIAGNOSIS: 1. Intrauterine at 37 5/7 weeks. 2. Breech presentation. POSTOPERATIVE DIAGNOSIS: 1. Intrauterine at 37 5/7 weeks. 2. Breech presentation. 3. 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 SURGEON: Lee Rand MOTORBOAT MECHANIC INBOARD: SCARLET Albert URINE OUTPUT: Yellow and clear. [...] the Recovery Room in stable condition. [facility] Evaluation note Diagnosis 13 weeks gestation of Second trimester state, incidental documented in this encounter [facility]* Diagnosis Second trimester state, incidental 18 weeks gestation of Vaginal discharge Leukorrhea, not specified as infective STD exposure Screening, , for anatomic survey Encounter for anatomic survey documented in this encounter [facility]* Diagnosis Missed menses Encounter for supervision of normal first in first trimester , unspecified gestational age care, antepartum documented in this encounter [facility]* Diagnosis Second trimester state, incidental with normal glucose tolerance test (GTT) 22 weeks gestation of Diabetes mellitus screening Screening for diabetes mellitus documented in this encounter [facility]* Diagnosis Second trimester state, incidental [...] gestation of documented in this encounter [facility]* Diagnosis Postoperative follow-up Follow-up examination, following unspecified surgery documented in this encounter [facility] HealthcareInstructionsNot on filedocumented in this encounterProMedine Health SystemInstructionsNot on filedocumented in this encounterProMercy [facility] Summary Purpose Family History No Family History Records FoundNo Family History Records FoundNo Family History Records FoundNo Family History Records Found Advance Directives Date Activated Date Inactivated Comments 10/03/2024 5:41 PM Additional Source Comments INFORMATION SOURCE (unrecogn ized section and content) DATE CREATED AUTHOR 06/14/2022 [facility] DATE CREATED AUTHOR AUTHOR'S ORGANIZ ATION 10/11/2024 [facility] DATE CREATED AUTHOR AUTHOR'S ORGANIZ ATION 10/14/2024 [facility] DATE CREATED AUTHOR AUTHOR'S ORGANIZ ATION 11/15/2024 [facility] dicia [employer] EPIC Care Teams (unrecognized sec tion and content) Fabric Designer Relationship Specialty Start Date End Date Fito Cueto MD [address] [place] [address] PCP - General Family Medicine 02/09/23 Fabric Designer Relationship Specialty Start Date End Date Fito Cueto MD [address] [place] [address] PCP - General Family Medicine 02/09/23 Fabric Designer Relationship Specialty Start Date End Date Fito Cueto MD [address] [place] [address] PCP - General Family Medicine 02/09/23 Fabric Designer Relationship Specialty Start Date End Date Fito Cueto MD [address] [place] [id number] PCP - General Family Medicine 02/09/23 Fabric Designer Relationship Specialty Start Date End Date Fito Cueto MD [address] [place] [id number] PCP - General Family Medicine 02/09/23 Fabric Designer Relationship Specialty Start Date End Date Fito Cueto MD [address] [place] [address] PCP - General Family Medicine 02/09/23 Fabric Designer Relationship Specialty Start Date End Date Fito Cueto MD [address] [place] [id number] PCP - General Family Medicine 02/09/23 Fabric Designer Relationship Specialty Start Date End Date Fito Cueto MD [address] [place] [id number] PCP - General Family Medicine 02/09/23 Fabric Designer Relationship Specialty Start Date End Date Fito Cueto MD [address] [place] [id number] PCP - General Family Medicine 02/09/23 Fabric Designer Relationship Specialty Start Date End Date Fito Cueto MD [address] [place] [id number] PCP - General Family Medicine 02/09/23 Fabric Designer Relationship Specialty Start Date End Date Fito Cueto MD [facility] [place] [address] PCP - General Family Medicine 02/09/23 Fabric Designer Relationship Specialty Start Date End Date Fito Cueto MD [address] [facility] [place] [address] PCP - General Family Medicine 02/09/23 Fabric Designer Relationship Specialty Start Date End Date Fito Cueto MD [address] [facility] [place] [address] PCP - General Family Medicine 10/04/24 Fabric Designer Relationship Specialty Start Date End Date Fito Cueto MD [address] [facility] [place] [address] PCP - General Family Medicine 02/09/23 Fabric Designer Relationship Specialty Start Date End Date Fito Cueto MD [address] [facility] [place] [address] PCP - General Family Medicine 02/09/23 Reason for Visit (unrecogniz ed section and content) Reason Comments Routine Visit Reason Comments Well Women Visit Routine Visit STI Screening Reason Comments Initial Visit Reason Onset Date Comments consent 10/05/2024 Reason Onset Date Comments Results 10/05/2024 Reason Comments Post-op Visit FOR RECORDS PERTAINING TO PATIENTS WHO [...] BE BASED ON THE PRIMARY CLINICAL RECORDS. [facility]. provides no warranty or guarantee of the accuracy or completeness of information in this document.
[2025-02-14 14:08] LABS: Age Gdln ACOG Testing Note (.); IGP, Aptima HPV, rfx 16/18,45 Note (.)
== END 2025-02-11 19:34 | disposition home or self-care (01) ==
LOC: LAB 19:33
PROVIDERS: Visit Provider Obstetrics & Gynecology
DX: Z01.419 Encounter for gynecological examination (general) (routine) without abnormal findings (principal)
CPT/HCPCS: 87624; 88175